=== PATIENT | female | born 1935 | race Caucasian/White ===

== ENCOUNTER → 2018-09-12 06:32 | Outpatient (CLI) | payer MEDICARE, OTHER, SELFPAY ==
[2018-08-24 11:08] VITALS: BMI 34.1
--- NOTE | 2018-09-12 06:35 | ECHOD_ITS ---
Reason For Study: CAD/ASHD Procedure This was a 2D Doppler, Color Flow transthoracic echocardiogram. Exam performed in department. Left Ventricle Normal LV size. Left ventricular systolic function is normal. The estimated ejection fraction is 60 %. Stage 1 diastolic dysfunction. Right Ventricle Normal RV size. Normal systolic function. Atria Normal left atrium. Normal right atrium. Mitral Valve There is mild to moderate mitral annular calcification. Tricuspid Valve Normal tricuspid valve. Mild (1+) tricuspid valve insufficiency. Pulmonary artery systolic pressure is 35 mmHg. Aortic Valve Normal aortic valve. Pulmonic Valve Normal pulmonic valve. Great Vessels Normal aortic root. The pulmonary artery is normal size. Normal inferior vena cava. Pericardium/Pleural No pericardial effusion. MMode/2D Measurements & Calculations LVIDd: 3.6 cm IVSd: 1.0 cm Ao root diam: 3.0 cm LVIDs: 2.2 cm LVPWd: 1.0 cm RVDd: 2.8 cm FS: 39.3 % LAV(MOD-bp): 55.2 ml LA A4 area: 18.9 cm2 LA dimension(2D): 4.5 cm LAV(MOD-bp) Indexed: 32.1 ml/m2 LAV(MOD-sp2): 58.8 ml LAV(MOD-sp4): 53.3 ml RA A4 area: 12.1 cm2 Time Measurements MV dec time: 0.18 sec Doppler Measurements & Calculations MV E max pawel: 108.4 cm/sec Lat Peak E' Pawel: 6.3 cm/sec Med Peak E' Pawel: 6.6 cm/sec MV A max pawel: 114.8 cm/sec E/E' lat: 17.3 E/E' med: 16.3 MV E/A: 0.94 Ao V2 max: 121.8 cm/sec LV V1 max: 86.8 cm/sec PA V2 max: 63.3 cm/sec Ao max P.9 mmHg LV V1 max P.0 mmHg TR max pawel: 277.9 cm/sec TR max P.9 mmHg Interpretation Summary Normal LV size. Left ventricular systolic function is normal. The estimated ejection fraction is 60 %. Stage 1 diastolic dysfunction. Ordering Physician: Jackson Davenport Referring Physician: Oj Fuentes Performed By: Dominique Clark, ARMAND, RVT
--- NOTE | 2018-09-12 17:07 | STRESSREP ---
Stress Test Report Pharmacologic myocardial perfusion stress test. 83-year-old lady with a history of previous coronary artery disease. Stress protocol: Resting EKG demonstrates normal sinus rhythm with a rate of 77 bpm normal intervals are noted resting blood pressure 132/70 6 m of mercury. 0.4 mg of adenosine was infused per usual protocol followed Intravenous saline flush injection continuous EKG monitoring was performed. The patient maintained sinus rhythm throughout the recording. The resting heart rate was 71 bpm with a peak heart rate of 93 with beats per minute. The maximum workload was 1 metabolic equivalent. At rest there were no ST or T wave changes noted suggest ischemia at peak infusion nonspecific ST-T wave changes were noted. The resting blood pressure 132/76 with a final blood pressure 122/64. Myocardial perfusion protocol. 11.6 mCi of technetium 99 sestamibi was injected at rest. 0.4 mg of regadenoson was infused per usual protocol peak infusion 32.9 mCi of technetium 99m sestamibi was injected stress images were obtained stress and rest images are reconstructed and compared in the short axis vertical and horizontal long axes. Gated images were also obtained Perfusion SPECT analysis: Review of the stress images demonstrate a small cardiac silhouette size. There is a medium-sized defect noted in the mid anterolateral wall towards the apex which completely reverses on resting. Above is suggestive of anterolateral ischemia. Gated SPECT analysis: The gated ejection fraction is noted to be 72%. Conclusion: Pharmacologic myocardial perfusion stress test with evidence of anterolateral ischemia present. Preserved ejection fraction.
== END ==
PROVIDERS: Family Provider Family Medicine; PCP Family Medicine; Referring Provider Internal Medicine Cardiovascular Disease; Visit Provider Internal Medicine Cardiovascular Disease
DX: I25.10 Atherosclerotic heart disease of native coronary artery without angina pectoris (principal); Z95.5 Presence of coronary angioplasty implant and graft
CPT/HCPCS: 78452; 93017; 93306; A9500; A4216; J2785

== ENCOUNTER → 2018-09-19 11:25 | Outpatient (CLI) | payer MEDICARE, OTHER, SELFPAY ==
[2018-08-24 11:08] VITALS: BMI 34.1
--- NOTE | 2018-09-19 11:43 | RAD_ITS ---
STUDY: X-RAY CHEST REASON FOR EXAM: Female, 83 years old. Pre-op for heart catheter TECHNIQUE: PA and lateral views of the chest. COMPARISON: None. FINDINGS: There is hyperinflation of the lungs consistent with chronic obstructive lung disease (COPD). Lungs are clear. There is no demonstrated pleural abnormality. There is mild cardiac enlargement. Normal mediastinum and sanchez. Normal visualized pulmonary arteries. There is atherosclerotic calcification of the aortic arch with tortuosity. There are diffuse degenerative changes of the visualized thoracic spine. There is degenerative osteoarthritis of the bilateral shoulders. There is no demonstrated abnormality of the visualized soft tissue structures of the upper abdomen. RAD/Chest PA and Lateral IMPRESSION: No acute cardiopulmonary disease Electronically Signed: Higinio Moser DO at 10:00 EDT Tel , Service support ,
[2018-09-19 12:30] LABS: Absolute Lymphocyte Count 1.68 X10^3/ul (0.83-4.51); Absolute Neutrophil Count 7.1 X10^3/uL (2.0-7.7); Basophil# 0.01 X10^3/uL; Basophil% 0.1 % (0-1); Eosinophil# 0.16 X10^3/uL; Eosinophils% 1.6 % (0-5); Hematocrit 33.5 % (37-47); Hemoglobin 11.4 g/dl (12.0-15.0); Lymphocyte # 1.68 X10^3/ul (4.0); Lymphocyte % 17.3 % (19-41); Mean Corpuscular Hgb 35.2 pg (27.0-32.0); Mean Corpuscular Volume 103.4 fL (81-99); Mean Platelet Vol. 9.4 fl (6.2-12.0); Monocyte# 0.74 X10^3/uL; Monocyte% 7.6 % (0-10); Neutrophil # 7.08 X10^3/uL (2.7-7.7); Platelet Count 305 K/mm3 (150-450); RBC Distribution Width CV 14.3 % (11.6-14.6); RBC Distribution Width SD 53.9 fl (35.1-43.9); Red Blood Count 3.24 M/mm3 (4.2-5.4); White Blood Count 9.7 K/mm3 (4.4-11.0)
[2018-09-19 12:35] LABS: POSITIVE COUNT NO; POSITIVE DIFFERENTIAL NO; POSITIVE MORPHOLOGY NO
[2018-09-19 12:57] LABS: Anion Gap 9 (5-15); BUN 43 mg/dL (7-18); BUN/Creat Ratio 26.9 RATIO (10-20); Calcium,Total 9.3 mg/dL (8.5-10.1); Chloride 101 mmol/L (98-107); EST Glomerular Filtration Rate 33 mL/min (>60); Est Glom Filt Rate - Afr Amer 40 mL/min (>60); Glucose 170 mg/dL (74-106); Sodium Level 134 mmol/L (136-145)
== END ==
PROVIDERS: Family Provider Family Medicine; PCP Family Medicine; Referring Provider Internal Medicine Cardiovascular Disease; Visit Provider Internal Medicine Cardiovascular Disease
DX: I25.10 Atherosclerotic heart disease of native coronary artery without angina pectoris (principal); R94.39 Abnormal result of other cardiovascular function study; Z95.5 Presence of coronary angioplasty implant and graft
CPT/HCPCS: 36415; 71046; 80048; 85025

== ENCOUNTER 2018-09-23 07:55 | Day surgery (SDC) | payer MEDICARE, OTHER, SELFPAY ==
[2018-08-24 11:08] VITALS: BMI 34.1
[2018-09-22 07:46] VITALS: BMI 34.1
[2018-09-23] VITALS (25 sets, daily range): BP systolic 97–131; BP diastolic 33–98; PULSE 63–78; RESP 10–23; TEMP 36.5–36.6; O2SAT 96–100; BMI 34.5
--- NOTE | 2018-09-23 09:42 | PCM.HP.BLA ---
Problem List (1) Atherosclerosis of coronary artery without angina pectoris Status: Chronic Comment: [id number]-Iuzs-Mid RCA w/ 3.0 x 20 mm Promus Element and 3.0 x 16 mm Promus Element 11/20/2011; PCI-RIANA-RCA 3.0 x 28mm Promus 06/26/2009; PCI-RIANA-RCA w/ 3.0 x 32 mm Taxus 06/21/2006; PCI-Stent- RCA w/ 3.0 x 24 mm Molded Rubber Goods Cutter Stent 08/27/2005; (2) Essential (primary) hypertension Status: Chronic (3) Hyperlipidemia Status: Chronic (4) History of coronary artery stent placement Status: Resolved Comment: KUA-TFI-Urdl-Mid RCA w/ 3.0 x 20 mm Promus Element and 3.0 x 16 mm Promus Element 11/20/2011; PCI-RIANA-RCA 3.0 x 28mm Promus 06/26/2009; PCI-RIANA-RCA w/ 3.0 x 32 mm Taxus 06/21/2006; PCI-Stent- RCA w/ 3.0 x 24 mm Molded Rubber Goods Cutter Stent 08/27/2005; History and Physical Date of Admission: 09/23/18 HPI History of Present Illness Details: Pleasant 83-year-old lady who in presents here today for a diagnostic heart cath. In November 2011 presented for a heart catheterization which revealed triple-vessel disease. It was elected that she should have a PCI followed by stent deployment. Following the procedure she apparently developed hypotension was noted to have moderate global pericardial effusion and underwent emergent pericardial window placement. She is done well since then but with residual hypertension, hyperlipidemia, and renal dysfunction. She has continued to follow-up in [place] but now wants to follow-up here with us. She is denied any dizziness or diaphoresis near syncope or syncope. She has been compliant with her medications. She apparently had a 3.0 x 38 mm long Promus stent, 3.0 x 28 mm Promus stent and a 3.0 x 16 mm Promus stent placed at that time. She underwent a stress test that demonstrated evidence of anterolateral ischemia present with a preserved ejection fraction. Intake VS: see chart Intake Visit Reasons: establish care ( previous niranjan pt ) Allergies quinapril HCl [From Accupril] Allergy (Verified 08/24/18 08:59) Other Sulfa (Sulfonamide Antibiotics) Allergy (Verified 08/24/18 08:59) Rash Medications Aspirin E.C. [Ecotrin] 81 mg PO DAILY@0800 01/02/15 [History Confirmed 08/24/18] Carvedilol [Coreg (Beta Karin)] 25 mg PO BID 01/02/15 [History Confirmed 08/24/18] Cholecalciferol (VIT D3) [Vitamin D3] 1,000 unit PO DAILY 01/02/15 [History Confirmed 08/24/18] Citalopram [Celexa] 20 mg PO DAILY 01/02/15 [History Confirmed 08/24/18] Clopidogrel Bisulfate [Plavix] 75 mg PO DAILY 01/02/15 [History Confirmed 08/24/18] Cranberry 500 mg PO DAILY 01/02/15 [History Confirmed 08/24/18] Cyanocobalamin [Vitamin B12] 1,000 mcg PO DAILY@0800 01/02/15 [History Confirmed 08/24/18] Folic Acid 1 mg PO BIDCM 01/02/15 [History Confirmed 08/24/18] Furosemide [Lasix] 20 mg PO DAILY 01/02/15 [History Confirmed 08/24/18] Irbesartan [Avapro] 300 mg PO DAILY 01/02/15 [History Confirmed 08/24/18] Latanoprost 0.005% [Xalatan Opthalmic] 1 drp EACH EYE QHS 01/02/15 [History Confirmed 08/24/18] Levothyroxine [Synthroid] 75 mcg PO QHS 01/02/15 [History Confirmed 08/24/18] Pantoprazole Sodium [Protonix] 40 mg PO DAILY 01/02/15 [History Confirmed 08/24/18] Pravastatin [Pravachol] 80 mg PO DAILY 01/02/15 [History Confirmed 08/24/18] sitagliptin 50 mg tablet 50 mg PO DAILY 08/22/18 [History Confirmed 08/24/18] ciclopirox 0.77 % topical suspension 1 applic TOPICAL QHS ml 08/24/18 [History Confirmed 08/24/18] glipizide 5 mg tablet 5 mg PO BID tab 08/24/18 [History Confirmed 08/24/18] nitroglycerin 0.4 mg sublingual tablet 0.4 mg SUBLINGUAL Q5-15M PRN 08/24/18 [History Confirmed 08/24/18] PFSH Medical History Atherosclerosis of coronary artery without angina pectoris (Chronic) Essential (primary) hypertension (Chronic) Hyperlipidemia (Chronic) Hypothyroidism (Chronic) Obesity (Chronic) Type 2 diabetes mellitus (Chronic) Pericardial effusion with cardiac tamponade (Resolved) Surgical History History of coronary artery stent placement (Resolved 11/20/11) History of bladder suspension procedure (Resolved) History of carpal tunnel release (Resolved) History of herniorrhaphy (Resolved) History of hysterectomy (Resolved) History of partial thyroidectomy (Resolved) Hx of cholecystectomy (Resolved) S/P pericardial window creation (Resolved 11/20/11) Family History Other CAD (coronary artery disease) Diabetes Social History Smoking Status: Never smoker ROS Const Const: Negative for fatigue, weakness, headache(s), frequent falls, difficulty sleeping or excessive sweating Eyes Eyes: Negative for loss of peripheral vision, transient loss of vision, blurry vision, double vision or tunnel vision ENT ENT: Negative for headache(s), dizziness, Nosebleed/epistaxis or balance problems Cardio Chest Pain: No Palpitations: No Edema: None Muscle aches with walking: None Resp Respiratory: Positive for SOB with activity (Increased SOB with ambulation) and crackles (bilateral bases); negative for SOB at rest, SOB orthopnea\SOB lying down, Cough or paroxysmal nocturnal dyspnea GI GI: Negative nausea, vomiting, heartburn or black,tarry stools : Negative for hematuria Musc Musc: Negative for muscle aches/ myalgia, muscle weakness, joint pain or balance problems Skin Skin: Negative non-healing lesions, rash or unusual bruising Neuro Neuro: Negative for dizziness, lightheadedness, near syncope, syncope, orthostatic symptoms, frequent falls, headache(s), weakness, blurry vision, double vision or lack of coordination Bradley Hematologic/Lymphatic: Negative for easy bleeding or easy bruising Endo Endo: Negative for fatigue, excessive sweating or increased thirst/drinking Psych Psych: Negative for anxiety or depression Allergy Allergy/Immunology: Negative for hives, Negative for rash Cardiology Exam Const Appearance: cooperative, healthy appearing, no acute distress, well developed and well groomed Nutritional Appearance: average body habitus and well nourished Orientation: alert, awake and oriented x3 Head Head: normal to inspection, normocephalic and atraumatic Ears: hearing grossly normal bilaterally and external ears normal Nose: external nose normal, nares normal, nasal mucous membranes and turbinates normal, septum normal, no nasal discharge Face and Sinus: face symmetric Mouth: oral mucosae normal, tongue normal, oropharynx normal and moist mucous membranes Teeth and gingiva: dentition normal Throat: posterior oropharynx normal, tonsils normal and uvula midline Eyes General: appearance normal, both eyes and all related structures Eyelids: eyelids normal Conjunctivae: conjunctivae normal Pupils: PERRL, normal by confrontation and accommodation normal EOM: EOM intact bilaterally Neck Neck: normal visual inspection, trachea midline and no JVD JVD: +5 Carotids: normal carotid upstroke and bounding pulses Chest Chest inspection: normal inspection of the chest, symmetric chest movement and normal respiratory effort Auscultation: Bilateral: Clear to Auscultation Cardio Palpation: normal PMI Rate: regular rate Rhythm: regular rhythm Heart sounds: S1 normal, S2 normal and normal, physiologic split S2; negative rub, gallop or murmur GI GI: normal to inspection, soft, no hepatosplenomegaly and bowel sounds present Neuro General: alert, awake, oriented x3, gait normal, moves all extremities and no focal sensory deficit Skin Skin: no rashes or lesions noted Extremities Pulses: Normal: Right Femoral Pulse, Left Femoral Pulse, Right Dorsalis Pedis Pulse, Left Dorsalis Pedis Pulse, Right Posterior Tibial Pulse, Left Posterior Tibial Pulse, Right Radial Pulse, Left Radial Pulse Lower Extremity Edema: None: Bilateral Musculoskel Musculoskeletal: No joint tenderness Psych Psychological: normal affect Assessment & Plan 1. History of coronary artery stent placement Z95.5 NYP-EYC-Swww-Mid RCA w/ 3.0 x 20 mm Promus Element and 3.0 x 16 mm Promus Element 11/20/2011; PCI-RIANA-RCA 3.0 x 28mm Promus 06/26/2009; PCI-RIANA-RCA w/ 3.0 x 32 mm Taxus 06/21/2006; PCI-Stent- RCA w/ 3.0 x 24 mm Molded Rubber Goods Cutter Stent 08/27/2005; Plan She does have known coronary artery disease with her last catheterization demonstrating a calcified left main coronary artery with 20 to 25% stenosis, left anterior descending artery which is calcified with 30% stenosis proximally and 20 to 30% stenosis followed by tubular 20 to 30%, 40 to 50% and distal 50 to 60% stenosis. The circumflex artery had less than 50% diffuse stenosis in the right coronary artery was a dominant vessel was occluded filling via [id number] collaterals and this was the vessel that was intervened upon. Stress test was positive for ischemia she is here today to undergo a diagnostic heart cath. 2. Essential (primary) hypertension I10 Plan Her blood pressure appears to be under good control at this particular time no other major changes will be made. She appears to have some renal dysfunction. Her most recent chemistry profile demonstrated a BUN of 40 and a creatinine of 1.8. 3. Hyperlipidemia E78.5 Plan She does have a history of hyperlipidemia she is on statin. She had a recent lipid profile performed which demonstrated total cholesterol 129, HDL 49 and LDL 57. No changes will be made with regard to the above.
--- NOTE | 2018-09-23 10:25 | CL.D_ITS ---
Patient Name: KRISTEL RYAN Study Date: 09/23/2018 Performing: Jackson Davenport MD Ht: 59.05 inches 150 cm : 1935 Wt: 167.55 lbs 76 kg Age: 83 Gender: female BSA: 1.71 PROCEDURE(S) PERFORMED MN18-UFX/COR/LV CLINICAL PROFILE AND INDICATIONS Indications: Suspected CAD Heart Failure: None Stress/Imaging Date: 09/12/2018Stress Test with SPECT MPI: Positive Intermediate Risk CAD Presentations: Stable angina. CONCLUSIONS Diffuse coronary artery disease with previously placed stents patent with moderate in-stent stenosis. Severe disease noted of the circumflex artery as well as the mid to distal left anterior descending artery. RECOMMENDATIONS Referred for immediate PCI DESCRIPTION OF PROCEDURE The patient arrived to the procedure lab. The risks and benefits of the procedure as well as a full d escription of our services here and current unavailability of surgical backup were fully explained to the patient and/or their significant other prior to the catheterization. The Timeout was completed, verifying the correct patient and procedure. The patient's procedural site was prepped and draped in the usual fashion. Local anesthetic was given subcutaneously to right radial region with Lidocaine 2% . Using a modified Seldinger technique, arterial access was obtained via the right radial artery, a 6 Fr sheath was inserted. Right Coronary Artery selective angiography was performed in multiple views using a 5 Fr. 4.0 Yale catheter. Left Coronary Artery selective angiography was performed in multipl e views using a 5 Fr. 4.0 Yale catheter. Left Ventriculography was performed in [place] projection using a 5 Fr. Pigtail catheter. LV to AO pullback pressures were then recorded. CORONARY ANGIOGRAPHY DOMINANCE: Right Dominant LEFT HEART ASSESSMENT Left Ventricular Ejection Fraction: by LV Gram 60 % Normal LV wall motion Normal Left Ventricular systolic function LEFT MAIN: Mild calcification, Mild luminal irregularities LEFT ANTERIOR DESCENDING ARTERY: PROX LAD: Mild luminal irregularities less than 30% MID LAD: 80 % Stenosis CIRCUMFLEX ARTERY: OSTIAL CIRC: Mild luminal irregularities less than 30% MID CIRC: 75 irregular % Stenosis OM 1: Proximal - 95 long % Stenosis RIGHT CORONARY ARTERY: OSTIAL RCA: 40 % Stenosis PROX RCA: Previously placed stent is patent MID RCA: Instent restenosis 50 % DISTAL RCA: Instent restenosis 30 % COMPLICATIONS No Complications PROCEDURE MEDICATIONS Fentanyl 50 mcg IV Versed 1 mg IV Fentanyl 25 mcg IV Fentanyl 25 mcg IV Oxygen: 2 L/min via nasal cannula Heparin diluted in 23cc Heparinized saline. Patient given 10cc IA of this solution. 09/23/2018 09:49: 51 Heparin 5000 unit(s) IV 09/23/2018 10:18:07 Verapamil 2.5mg, Ntg 100mcgs, 2000 units of Heparin diluted in 23cc Heparinized saline. Patient give n 10cc IA of this solution. 09/23/2018 09:49:51 SUMMARY OF HEMODYNAMIC DATA Time AIR REST ECG 08:15:10 AO 128/65 (91) SA 09:52:35 LV 130/8, 20 10:02:03 LV 132/8, 21 10:02:10 LV 120/2, 25 10:03:02 LV 123/2, 24 10:03:08 LVp 127/1, 24 10:03:14 AOp 137/60 (94) 10:03:19 Signed By Jackson Davenport MD On 09/23/2018 10:24:50 Jacksno Davenport MD
--- NOTE | 2018-09-23 11:30 | EKG12_ITS ---
Test Reason : AM EKG Blood Pressure : / mmHG Vent. Rate : 072 BPM Atrial Rate : 072 BPM P-R Int : 140 ms QRS Dur : 080 ms QT Int : 390 ms P-R-T Axes : 061 025 092 degrees QTc Int : 427 ms Normal sinus rhythm Normal ECG When compared with ECG of 23-SEP-2018 11:16, MANUAL COMPARISON REQUIRED, DATA IS UNCONFIRMED Confirmed by JENN PATINO, BRENT ([id number]), map editor ELLEN ASIF ([id number]) on 09/30/2018 1:52:39 PM Referred By: Jackson Davenport Confirmed By:JASEN BARAJAS MD
--- NOTE | 2018-09-23 11:46 | CL.I_ITS ---
Patient Name: KRISTEL RYAN Study Date: 09/23/2018 Performing: Jacquie Lema MD Ht: 59.06 inches 150 cm : 1935 Wt: 167.55 lbs 76 kg Age: 83 Gender: female BSA: 1.71 PROCEDURE(S) PERFORMED [id number], SINGLE CORONARY ARTERY CLINICAL PROFILE AND CO-MORBIDITIES Indications: Suspected CAD Heart Failure: None Stress/Imaging Date: 09/12/2018 Stress Test with SPECT MPI: Positive Intermediate Risk CAD Presentations: Stable angina. CONCLUSIONS Successful PCTA alone of mLCx RECOMMENDATIONS Recommend medical therapy at this point and PCI or CABG if patient remain symptomatic despite maximal medical therapy DESCRIPTION OF PROCEDURE The patient arrived to the procedure lab. The risks and benefits of the procedure as well as a full d escription of our services here and current unavailability of surgical backup were fully explained to the patient and/or their significant other prior to the catheterization. The Timeout was completed, verifying the correct patient and procedure. The patient's procedural site was prepped and draped in the usual fashion. Local anesthetic was given subcutaneously to right radial region with Lidocaine 2% Using a modified Seldinger technique,arterial access was obtained via the right radial artery, a 6Fr sheath was inserted. Right Coronary Artery selective angiography was performed in multiple views usi ng a 5 Fr. 4.0 [place] catheter. Left Coronary Artery selective angiography was performed in multiple v iews using a 5 Fr. 4.0 [place] catheter. Left Ventriculography was performed in [place] projection using a 5 Fr. Pigtail catheter. LV to AO pullback pressures were then recorded.The images were reviewed and options discussed. A decision was then made to proceed with an Intervention, IVUS or oth er adjunct procedure. XB 3.0 Guide catheter was inserted and engaged into the LCA. [employer] [place] Guide wire was advance d to the Circumflex. Emerge 2.25 x 20 Balloon catheter was inserted. Emerge 1.5 x 15 Balloon catheter was inserted. Balloon catheter was advanced across lesion in the circumflex, distal. PTCA balloon in flated at 14 atms for 24 secs. PTCA balloon inflated at 14 atms for 22 secs. PTCA balloon inflated at 14 atms for 26 secs. PTCA balloon inflated at 14 atms for 6 secs. Angiogram performed post balloon d ilatation. Emerge 2.25 x 20 Balloon catheter was reinserted Balloon catheter was advanced across lesi on in the circumflex, distal. Angiogram performed post balloon dilatation. The arterial sheath was pulled and a TR Band was applied for hemostasis INTERVENTION INFORMATION LESION SITE: Circumflex (Mid) Lesion Complexity: High/C, chronic total occlusion: No, lesion at bifurcation: No, thrombus present: No, lesion length: 20 mm, culprit lesion: Yes, Previously treated lesion: No Pre Stenosis: 80 % Pre intervention YAYO flow: 3 PROCEDURE: Balloon Angioplasty Post Stenosis: 60 % Post intervention YAYO flow: 3. The 1.5 mm balloon crossed and expanded well. Th e 2.25 mm balloon ruptured. At this point we felt that further attempts at pre dilating will not be i deal. Rotablation is not ideal for this vessel either. Brief attempts at crossing the LAD lesion with bmw wire was unsuccessful. Escalating to a hydrophilic wire would increase the risk of complications in this patient who in the past had PCI complicated with hemorrhagic pericardial effusion requiring window. At this point we felt the risk vs benefit ratio was not in favor of further attempts at PCI o f LAD which is at best 1.5mm in the location of the stenosis. Recommend medical therapy at this point and PCI or CABG if patient remain symptomatic despite maximal medical therapy Lesion Devices: Cordis 6 Fr XB3.0 100cm Guide Catheter [employer] 6 [place] GuideLiner Driscoll .014 [employer] [place] Straight 190cm Natan Sci EMERGE MR 2.25x20 BALLOON Natan Sci EMERGE MR 1.50x15 BALLOON COMPLICATIONS No Complications PROCEDURE MEDICATIONS Fentanyl 50 mcg IV Versed 1 mg IV Fentanyl 25 mcg IV Fentanyl 25 mcg IV Oxygen: 2 L/min via nasal cannula Heparin diluted in 23cc Heparinized saline. Patient given 10cc IA of this solution. 09/23/2018 09:49: 51 Heparin 5000 unit(s) IV 09/23/2018 10:18:07 Verapamil 2.5mg, Ntg 100mcgs, 2000 units of Heparin diluted in 23cc Heparinized saline. Patient give n 10cc IA of this solution. 09/23/2018 09:49:51 IV Bolus: .9 NaCl 250 ml total 09/23/2018 10:52:56 SUMMARY OF HEMODYNAMIC DATA Time AIR REST ECG 08:15:10 AO 128/65 (91) SA 09:52:35 LV 130/8, 20 10:02:03 LV 132/8, 21 10:02:10 LV 120/2, 25 10:03:02 LV 123/2, 24 10:03:08 LVp 127/1, 24 10:03:14 AOp 137/60 (94) 10:03:19 RM AIR REST 10:32:39 Signed By Jacquie Lema MD On 09/23/2018 11:45:35 AM Jacquie Lema MD
[2018-09-23] MEDS: 0.9% Normal Saline 1,000 ML 100 ML IV (11:56)
--- NOTE | 2018-09-23 13:02 | CRPHASE1_ITS ---
Patient Communication PHII Cardiac Rehab Discussed with Patient:: Yes Guide to Cardiac Rehab Given to Patient:: Yes Cardiac Rehab Facility Choice List Given to Patient:: Yes Choice Program [facility] CR PHII:: Communication Given to CR, Refer to [facility] Rug Weaver:: Eduar Lema - Dr. 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 PCP:: Koko Fuentes Phase II Cardiac Rehab:: Yes Sessions:: 36 sessions - 3 days/wk, 12 weeks Risk Factors/Lifestyle Smoking Status: Never smoker Hx Hypertension: Yes Hx Diabetes Mellitus Type 2: Yes Hx Dyslipidemia: Yes Height: 4 ft 11 in Weight:: 171 lb BMI: 34.5 Family History: Family History (Last Reviewed 08/24/18 @ 11:34 by Jackson Davenport MD) Other CAD (coronary artery disease) Diabetes Phase I Education Given On:: [place], Nutrition, Antiplatelet medication, CHF, Smoking cessation, Diabetes - Type I, Diabetes - Type II Hospital Course Presenting Symptoms:: SOB Medical/Surgical History CT:: No CAD:: Yes Valve Disease/Replacement:: No Pulmonary:: No COPD:: No Asthma:: No Diabetes Type II:: Yes Hypertension:: Yes Dyslipidemia:: Yes Arrhythmias:: No PVD:: No GERD:: Yes Cancer:: No Renal:: No Thyroid:: Yes Depression:: Yes - SEASONAL CABG: No PTCA:: Yes ICD:: No Pacemaker:: No Cardiac Rehabilitation Info Cardiac Rehabilitation Program Information: Cardiac Rehabilitation is important for patients like you who are recovering from a heart problem. Cardiac rehabilitation programs are recognized as integral to the continued care of the patient with coronary heart disease. The cardiac rehabilitation program is designed to optimize a patient's physical, psychological, and social functioning. Health animal care service worker work in cardiac rehabilitation programs and assist you with getting the treatments you need to get stronger and healthier - like exercise, healthy eating habits, and medications. Cardiac rehabilitation has been show to help people with heart problems live longer and have better life enjoyment than people who do not go to cardiac rehabilitation. Please contact the Cardiac Rehabilitation Program at [facility] at in two weeks if you have not heard from them.
--- NOTE | 2018-09-23 13:08 | CRPH1.INSTRU ---
General Education CAD and cardiac anatomy and function:: Not instructed Explanation of diagnoses and procedures:: Not instructed Sign/Symptoms of ME:: Not instructed Antiplatelet therapy: Not instructed Proper use of NTG-SL: Not instructed Emergency procedures and activation of EMS: Not instructed Compliance of all prescribed medications: Not instructed Smoking Patient Nicotine/Smoking Risk Factors Are:: Never smoked Dyslipidemia Recommendations Include:: Lipid profile not available Overweight/Obesity Patient Overweight/Obesity Risk Factors Are:: Obesity - > or = 30 Overweight/Obesity:: Not instructed Hypertension Hypertension:: Not instructed Heart Disease Patient Heart Disease Risk Factors Are:: Previous cardiac event - PREVIOUS 4 STENTS Heart Disease Response Code:: Not instructed Diabetes Patient Diabetes Risk Factors Are:: Elevated blood sugars Diabetes:: Not instructed Metabolic Syndrome Metabolic Syndrome Response Code:: Not instructed Sedentary Sedentary Response Code:: Not instructed Stress Stress Response Code:: Not instructed
[2018-09-23] MEDS: glipiZIDE 5 MG Tablet PO (16:55)
[2018-09-23] MEDS: Folic Acid 1 MG Tablet PO (16:55)
[2018-09-23] MEDS: Carvedilol 25 MG Tablet PO (22:15)
[2018-09-24] VITALS (14 sets, daily range): BP systolic 105–128; BP diastolic 37–53; PULSE 66–75; RESP 12–17; TEMP 36.6–36.8; O2SAT 93–99
[2018-09-24 05:44] LABS: Hematocrit 31.7 % (37-47); Hemoglobin 10.8 g/dl (12.0-15.0); Mean Corp Hgb Conc 34.1 g/gl (32-36); Mean Corpuscular Hgb 35.1 pg (27.0-32.0); Mean Corpuscular Volume 102.9 fL (81-99); Mean Platelet Vol. 9.4 fl (6.2-12.0); Platelet Count 286 K/mm3 (150-450); RBC Distribution Width CV 13.9 % (11.6-14.6); RBC Distribution Width SD 50.1 fl (35.1-43.9); Red Blood Count 3.08 M/mm3 (4.2-5.4); White Blood Count 8.3 K/mm3 (4.4-11.0)
[2018-09-24 05:50] LABS: Scan Indicated on CBC? Y/N NO
[2018-09-24 05:57] LABS: ALB/GLOB Ratio 1.1 RATIO (0.9-2.4); AST(SGOT) 12 U/L (15-37); Alanine Aminotransfer ALT/SGPT 13 U/L (13-56); Albumin, Serum 3.5 g/dL (3.2-5.0); Alkaline Phosphatase 51 U/L (45-117); Anion Gap 8 (5-15); BUN 41 mg/dL (7-18); BUN/Creat Ratio 31.8 RATIO (10-20); Calcium,Total 8.9 mg/dL (8.5-10.1); Chloride 105 mmol/L (98-107); Creatinine, Serum 1.29 mg/dL (0.55-1.02); EST Glomerular Filtration Rate 42 mL/min (>60); Est Glom Filt Rate - Afr Amer 51 mL/min (>60); Estimated Creatinine Clearance 41.51 ml/min; Globulin 3.2 g/dL (2.2-4.2); Glucose 78 mg/dL (74-106); Potassium 4.6 mmol/L (3.5-5.1); Protein, Total 6.7 g/dL (6.4-8.2); Sodium Level 138 mmol/L (136-145)
[2018-09-24] MEDS: Clopidogrel Bisulfate 75 MG Tablet PO (08:06)
[2018-09-24] MEDS: Folic Acid 1 MG Tablet PO (08:06)
[2018-09-24] MEDS: Citalopram 20 MG Tablet PO (08:06)
[2018-09-24] MEDS: glipiZIDE 5 MG Tablet PO (08:06)
[2018-09-24] MEDS: Pantoprazole Sodium 40 MG Tablet PO (08:06)
[2018-09-24] MEDS: Aspirin E.C. 81 MG Tablet PO (08:06)
[2018-09-24 08:16] LABS: Bedside Glucose 97 mg/dL (70-110)
--- NOTE | 2018-09-24 08:37 | PN.CARD_ITS ---
Subjectve: Patient seen and evaluated. Appears to be doing better. No concerns. Objective: Vital Signs Temp Pulse Resp BP Pulse Ox 98.2 F 72 17 119/38 L 98 09/24/18 08:00 09/24/18 08:00 09/24/18 08:00 09/24/18 08:00 09/24/18 08:00 Oxygen Delivery Method Room Air Weight: 172 lb 6.424 oz Body Mass Index (BMI) 34.5 Finger Stick Blood Glucose 196 Intake and Output for Last 24 Hours 09/22/18 09/23/18 09/24/18 23:59 23:59 23:59 Intake Total 1723 / 1723 120 / 120 Balance 1723 / 1723 120 / 120 General: Awake, Alert, Oriented x 3 HEENT: PERRL, EOMI, Sclera Non Icteric Neck: Supple, Good ROM, No Lymph Node Enlargement Lungs: Clear to auscultation Cardiovascular: Regular Rhythm, Normal S1, Normal S2, No Murmurs, No Rubs, No Gallops Vascular: No Carotid Bruits, Normal Femoral Pulses, Normal Radial Pulses, Normal Dorsalis Pedal Pulse, Normal Posterior Tibial Pulses Abdomen: Bowel Sounds Present, Soft, Non Tender, No HSM, No Organomegaly Extremities: No Cyanosis, No Clubbing, No edema Musculoskeletal: No Erythema Skin: No Rashes Lymphatic: No Lymph Node Enlargement Neurological: No Focal Motor or Sensory Deficit Psych/Mental Status: Appropriate 09/24/18 05:30: WBC 8.3, RBC 3.08 L, Hgb 10.8 L, Hct 31.7 L, MCV 102.9 H, MCH 35.1 H, MCHC 34.1, RDW 13.9, RDW Differential 50.1 H, Plt Count 286, MPV 9.4 09/24/18 05:30: Sodium 138, Potassium 4.6, Chloride 105, Carbon Dioxide 25.0, Anion Gap 8, BUN 41 H, Creatinine 1.29 H, Est GFR (MDRD) Af Amer 51 L, Est GFR (MDRD) Non-Af 42 L, BUN/Creatinine Ratio 31.8 H, Glucose 78, Calcium 8.9, Total Bilirubin 0.40 Rhythm: EKG: ECHO: Stress Test: Cardiac Cath: PCI: CT Surgery: Holter monitor: EPS: PPM: CXR: Chest CT Scan: Medical Necessity - Tobacco Use Smoking Status: Never smoker Assessment/Plan 1. Coronary artery disease * Patient underwent angioplasty of the left circumflex artery. This morning appears to be doing well. The LAD still has some stenosis but patient is asymptomatic and this would not be tackled at this time. EKG remains without significant changes hemoglobin and creatinine are normal. The patient will be discharged for outpatient follow-up in cardiac rehabilitation if desired.
--- NOTE | 2018-09-24 08:44 | PCM.DC.CCA ---
Discharge Diet: No Restrictions - You may continue your normal diet. Lifting Restrictions: 10 pounds and also avoid any pushing or pulling for 3 days after your test. Additional Activity Instructions:: You must have someone drive you home. Do not drive until instructed by your doctor. You must have someone stay with you all night after your test. Rest in bed or on the couch until the next morning. Limit the number of times you go up and down stairs the day of your test. Apply pressure to the puncture site if you sneeze or cough. Call your doctor if your incision/area has: Increased Pain/ Swelling, Increased Redness, Foul Smelling Discharge, Swelling at the incision site Call your doctor if you observe: Fever of 101 or Higher Additional Dressing/Incision Instructions:: Keep the dressing (bandage) on until the next morning. You may then shower, but do not take a tub bath for 5 days after your test. It is normal to have some tenderness and discomfort at the puncture site. Sometimes bruising also occurs. However, if pain, numbness, or coldness occurs below the puncture site (in your leg, toes, arms or fingers) call your doctor at once. You may have a small, marble sized knot at the puncture site. This is normal. Do not rub it. It will go away in 4-6 weeks. Bleeding can occur from the area where the puncture was done. Blood may spurt or drip from the site. If blood spurts, apply pressure right away to stop bleeding and call 911. Although rare, bleeding into the tissue (hematoma) can also occur. If this happens, a large, firm area goose egg under the skin will appear. If any of these occur, lie down as flat as you can and have someone apply firm pressure to the cath site with a gauze pad or a clean washcloth for 10-15 minutes. Call 911 or go to the Emergency Department. Allergies/Adverse Reactions: Allergies quinapril HCl [From Accupril] Allergy (Verified 08/24/18 08:59) Other cough Sulfa (Sulfonamide Antibiotics) Allergy (Verified 08/24/18 08:59) Rash Medications to take at Discharge Aspirin E.C. [Ecotrin] 81 mg PO DAILY@0800 01/02/15 Carvedilol [Coreg (Beta Karin)] 25 mg PO BID 01/02/15 Cholecalciferol (VIT D3) [Vitamin D3] 1,000 unit PO DAILY 01/02/15 Citalopram [Celexa] 20 mg PO DAILY 01/02/15 Clopidogrel Bisulfate [Plavix] 75 mg PO DAILY 01/02/15 Cranberry 500 mg PO DAILY 01/02/15 Cyanocobalamin [Vitamin B12] 1,000 mcg PO DAILY@0800 01/02/15 Folic Acid 1 mg PO BIDCM 01/02/15 Furosemide [Lasix] 20 mg PO DAILY 01/02/15 Irbesartan [Avapro] 300 mg PO DAILY 01/02/15 Latanoprost 0.005% [Xalatan Opthalmic] 1 drp EACH EYE QHS 01/02/15 Levothyroxine [Synthroid] 75 mcg PO QHS 01/02/15 Pantoprazole Sodium [Protonix] 40 mg PO DAILY 01/02/15 Pravastatin [Pravachol] 80 mg PO DAILY 01/02/15 sitagliptin 50 mg tablet 50 mg PO DAILY 08/22/18 ciclopirox 0.77 % topical suspension 1 applic TOPICAL QHS ml 08/24/18 glipizide 5 mg tablet 5 mg PO BID tab 08/24/18 nitroglycerin 0.4 mg sublingual tablet 0.4 mg SUBLINGUAL Q5-15M PRN 08/24/18 Primary Care Physician: Koko Fuentes MD [Primary Care Provider] - Test Results: Test results from this visit will be discussed in further detail at your follow-up appointment, if applicable. When: follow with titi Proposed Discharge Date: 09/24/18 Cardiac Rehabilitation Info Cardiac Rehabilitation Program Information: Cardiac Rehabilitation is important for patients like you who are recovering from a heart problem. Cardiac rehabilitation programs are recognized as integral to the continued care of the patient with coronary heart disease. The cardiac rehabilitation program is designed to optimize a patient's physical, psychological, and social functioning. Health career center director work in cardiac rehabilitation programs and assist you with getting the treatments you need to get stronger and healthier - like exercise, healthy eating habits, and medications. Cardiac rehabilitation has been show to help people with heart problems live longer and have better life enjoyment than people who do not go to cardiac rehabilitation. Please contact the Cardiac Rehabilitation Program at [facility] at in two weeks if you have not heard from them.
--- NOTE | 2018-09-24 10:00 | EKG12_ITS ---
Test Reason : POST PCI Blood Pressure : / mmHG Vent. Rate : 075 BPM Atrial Rate : 075 BPM P-R Int : 158 ms QRS Dur : 074 ms QT Int : 404 ms P-R-T Axes : 064 035 094 degrees QTc Int : 451 ms Normal sinus rhythm ST & T wave abnormality, consider lateral ischemia Abnormal ECG When compared with ECG of 21-MAY-2016 16:04, No significant change was found Confirmed by JENN PATINO, BRENT ([id number]), design editor ELLEN ASIF ([id number]) on 09/30/2018 1:52:54 PM Referred By: Jackson Davenport Confirmed By:JASEN BARAJAS MD
== END 2018-09-24 11:20 | disposition home or self-care (01) ==
LOC: CLSP 07:57 → ICU 10:45
PROVIDERS: Specialist; Family Provider Family Medicine; PCP Family Medicine; Referring Provider Internal Medicine Cardiovascular Disease; Visit Provider Internal Medicine Cardiovascular Disease
DX: I25.10 Atherosclerotic heart disease of native coronary artery without angina pectoris (principal); T82.855A Stenosis of coronary artery stent, initial encounter; Y71.8 Miscellaneous cardiovascular devices associated with adverse incidents, not elsewhere classified; I10 Essential (primary) hypertension; E78.5 Hyperlipidemia, unspecified; Z79.82 Long term (current) use of aspirin; Z79.84 Long term (current) use of oral hypoglycemic drugs; Z79.899 Other long term (current) drug therapy; Z79.02 Long term (current) use of antithrombotics/antiplatelets; E66.9 Obesity, unspecified; Z68.34 Body mass index [BMI] 34.0-34.9, adult; Z71.3 Dietary counseling and surveillance; E03.9 Hypothyroidism, unspecified; E11.9 Type 2 diabetes mellitus without complications
CPT/HCPCS: 80053; 82962; 85027; 92920; 93005; 93458; 99152; 99153; J7030; J7040; Q9967; C1725; C1769; C1887; C1894

== ENCOUNTER → 2018-12-07 14:09 | Outpatient (CLI) | payer MEDICARE, OTHER, SELFPAY ==
[2018-09-23 13:08] VITALS: BMI 34.5
[2018-12-07 10:19] VITALS: BMI 34.1
[2018-12-07 14:58] LABS: Anion Gap 7 (5-15); BUN 52 mg/dL (7-18); BUN/Creat Ratio 30.1 RATIO (10-20); Calcium,Total 9.4 mg/dL (8.5-10.1); Chloride 100 mmol/L (98-107); Creatinine, Serum 1.73 mg/dL (0.55-1.02); EST Glomerular Filtration Rate 30 mL/min (>60); Est Glom Filt Rate - Afr Amer 36 mL/min (>60); Glucose 171 mg/dL (74-106); Sodium Level 131 mmol/L (136-145)
== END ==
PROVIDERS: Family Provider Family Medicine; PCP Family Medicine; Referring Provider Physician Assistant Medical; Visit Provider Physician Assistant Medical
DX: I10 Essential (primary) hypertension (principal)
CPT/HCPCS: 36415; 80048

== ENCOUNTER → 2021-02-27 14:36 | Outpatient (CLI) | payer MEDICARE, OTHER, SELFPAY ==
[2018-09-23 13:08] VITALS: BMI 34.5
[2021-02-27 15:46] LABS: Hematocrit 35.1 % (37-47); Hemoglobin 12.1 g/dL (12.0-15.0); Mean Corp Hgb Conc 34.5 g/dL (32-36); Mean Corpuscular Hgb 36.9 pg (27.0-32.0); Mean Platelet Vol. 9.8 fl (6.2-12.0); Platelet Count 331 K/mm3 (150-450); RBC Distribution Width CV 14.7 % (11.6-14.6); RBC Distribution Width SD 57.3 fl (35.1-43.9); Red Blood Count 3.28 M/mm3 (4.2-5.4)
[2021-02-27 16:31] LABS: Microalbumin,Random Urine 27.6 mg/L (NO RANGE EST.); Microalbumin:Creatinine Ratio 105.3 mg/g CRE (<30 mg/g CRE)
[2021-02-28 07:46] LABS: PTHIN 75.9 pg/mL (18.4-80.1)
== END ==
PROVIDERS: PCP Family Medicine; Visit Provider Internal Medicine Nephrology
DX: N18.4 Chronic kidney disease, stage 4 (severe) (principal)
CPT/HCPCS: 36415; 82043; 82570; 83970; 85027

== ENCOUNTER 2021-04-04 10:22 | Outpatient (CLI) | payer MEDICARE, OTHER, SELFPAY ==
[2018-09-23 13:08] VITALS: BMI 34.5
[2021-04-04 11:25] LABS: AST(SGOT) 15 U/L (15-37); Alanine Aminotransfer ALT/SGPT 25 U/L (13-56); Albumin, Serum 3.9 g/dL (3.2-5.0); Alkaline Phosphatase 53 U/L (45-117); Anion Gap 6 (5-15); BUN 53 mg/dL (7-18); BUN/Creat Ratio 29.4 RATIO (10-20); Bilirubin, Direct 0.14 mg/dL (0.00-0.30); Calcium,Total 9.3 mg/dL (8.5-10.1); Chloride 100 mmol/L (98-107); Cholesterol 137 mg/dL (200); EST Glomerular Filtration Rate 28 mL/min (>60); Est Glom Filt Rate - Afr Amer 34 mL/min (>60); Glucose 137 mg/dL (74-106); High Density Lipoprotein 59 mg/dL; Potassium 4.4 mmol/L (3.5-5.1); Protein, Total 7.9 g/dL (6.4-8.2); Sodium Level 134 mmol/L (136-145); Triglycerides 172 mg/dL; Very Low Density Lipoprotein 34 mg/dL (5-40)
== END 2021-04-04 23:59 | disposition short-term general hospital (02) ==
LOC: LAB 10:27
PROVIDERS: Internal Medicine Cardiovascular Disease; PCP Family Medicine; Referring Provider Internal Medicine Nephrology; Visit Provider Internal Medicine Nephrology
DX: N18.4 Chronic kidney disease, stage 4 (severe) (principal)
CPT/HCPCS: 36415; 80048; 80061; 80076; 84100

== ENCOUNTER → 2021-09-23 | Outpatient (CLI) | payer MEDICARE, OTHER, SELFPAY ==
[2018-09-23 13:08] VITALS: BMI 34.5
[2021-09-23 08:10] LABS: Protein, Urine (Random) 11.2 mg/dL (<11.9); Protein:Creat Ratio 288 mg/g CRE (0-200)
[2021-09-23 08:26] LABS: Albumin, Serum 3.8 g/dL (3.2-5.0); BUN 60 mg/dL (7-18); Calcium,Total 9.3 mg/dL (8.5-10.1); Chloride 103 mmol/L (98-107); EST Glomerular Filtration Rate 35 mL/min (>60); Est Glom Filt Rate - Afr Amer 42 mL/min (>60); Glucose 127 mg/dL (74-106); Phosphorus 3.4 mg/dL (2.5-4.9); Potassium 4.6 mmol/L (3.5-5.1); Sodium Level 137 mmol/L (136-145)
[2021-09-23 08:31] LABS: AST(SGOT) 10 U/L (15-37); Alanine Aminotransfer ALT/SGPT 15 U/L (13-56); Albumin, Serum 3.8 g/dL (3.2-5.0); Alkaline Phosphatase 47 U/L (45-117); Bilirubin, Direct 0.16 mg/dL (0.00-0.30); Cholesterol 135 mg/dL (200); Globulin 3.5 g/dL (2.2-4.2); High Density Lipoprotein 60 mg/dL; Protein, Total 7.3 g/dL (6.4-8.2); Triglycerides 96 mg/dL; Very Low Density Lipoprotein 19 mg/dL (5-40)
== END | disposition home or self-care (01) ==
LOC: LAB 07:32
PROVIDERS: Internal Medicine Cardiovascular Disease; PCP Family Medicine; Visit Provider Internal Medicine Nephrology
DX: E11.22 Type 2 diabetes mellitus with diabetic chronic kidney disease (principal); N18.4 Chronic kidney disease, stage 4 (severe); E78.00 Pure hypercholesterolemia, unspecified
CPT/HCPCS: 36415; 80061; 80069; 80076; 82570; 84156

== ENCOUNTER → 2022-01-05 | Outpatient (CLI) | payer MEDICARE, OTHER, SELFPAY ==
[2018-09-23 13:08] VITALS: BMI 34.5
[2022-01-05 09:12] LABS: Absolute Lymphocyte Count 1.88 X10^3/uL (0.83-4.51); Absolute Neutrophil Count 5.9 X10^3/uL (2.0-7.7); Basophil# 0.04 X10^3/uL; Basophil% 0.4 % (0-1); Eosinophil# 0.32 X10^3/uL; Eosinophils% 3.6 % (0-5); Hematocrit 31.1 % (37-47); Hemoglobin 10.3 g/dL (12.0-15.0); Lymphocyte # 1.88 X10^3/ul (0.83-4.51); Mean Corp Hgb Conc 33.1 g/dL (32-36); Mean Corpuscular Volume 108.7 fL (81-99); Mean Platelet Vol. 9.9 fl (6.2-12.0); Monocyte# 0.81 X10^3/uL; NRBC Flagged by Analyzer 0.3 % (0-5); Neutrophil # 5.87 X10^3/uL (2.7-7.7); Neutrophil % 65.6 % (47-70); Platelet Count 325 K/mm3 (150-450); RBC Distribution Width SD 63.8 fl (35.1-43.9); Red Blood Count 2.86 M/mm3 (4.2-5.4)
== END | disposition home or self-care (01) ==
PROVIDERS: PCP Family Medicine; Referring Provider Nurse Practitioner Gerontology; Visit Provider Nurse Practitioner Gerontology
DX: R53.83 Other fatigue (principal)
CPT/HCPCS: 36415; 85025

== ENCOUNTER → 2022-05-14 | Outpatient (CLI) | payer MEDICARE, OTHER, SELFPAY ==
[2018-09-23 13:08] VITALS: BMI 34.5
[2022-05-14 10:25] LABS: Hemoglobin 10.8 g/dL (12.0-15.0); Mean Corp Hgb Conc 33.8 g/dL (32-36); Mean Corpuscular Hgb 37.2 pg (27.0-32.0); Mean Corpuscular Volume 110.3 fL (81-99); Mean Platelet Vol. 9.9 fl (6.2-12.0); Platelet Count 317 K/mm3 (150-450); RBC Distribution Width CV 15.1 % (11.6-14.6); RBC Distribution Width SD 61.1 fl (35.1-43.9); White Blood Count 8.9 K/mm3 (4.4-11.0)
[2022-05-14 10:49] LABS: Albumin, Serum 3.7 g/dL (3.2-5.0); BUN 49 mg/dL (7-18); BUN/Creat Ratio 30.4 RATIO (10-20); Calcium,Total 9.3 mg/dL (8.5-10.1); Chloride 101 mmol/L (98-107); Creatinine, Serum 1.61 mg/dL (0.55-1.02); EST Glomerular Filtration Rate 32 mL/min (>60); Est Glom Filt Rate - Afr Amer 39 mL/min (>60); Glucose 312 mg/dL (74-106); PTHIN 101.4 pg/mL (18.4-80.1); Phosphorus 3.7 mg/dL (2.5-4.9); Potassium 4.5 mmol/L (3.5-5.1); Sodium Level 134 mmol/L (136-145)
== END | disposition home or self-care (01) ==
LOC: LAB 09:51
PROVIDERS: PCP Family Medicine; Referring Provider Internal Medicine Nephrology; Visit Provider Internal Medicine Nephrology
DX: N18.4 Chronic kidney disease, stage 4 (severe) (principal)
CPT/HCPCS: 36415; 80069; 83970; 85027

== ENCOUNTER → 2022-05-21 | Outpatient (CLI) | payer MEDICARE, OTHER, SELFPAY ==
[2018-09-23 13:08] VITALS: BMI 34.5
[2022-05-21 13:11] LABS: Ferritin 104 ng/mL (8-252); Iron 111 ug/dL (50-170); Iron Binding Capacity,Total 319 ug/dL (250-450); PERCENT IRON SATURATION 34.8 % (15.0-55.0)
== END | disposition home or self-care (01) ==
LOC: POLAB3 10:10
PROVIDERS: PCP Family Medicine; Visit Provider Internal Medicine Nephrology
DX: D64.9 Anemia, unspecified (principal)
CPT/HCPCS: 36415; 82728; 83540; 83550

== ENCOUNTER → 2022-07-29 | Outpatient (CLI) | payer MEDICARE, OTHER, SELFPAY ==
[2018-09-23 13:08] VITALS: BMI 34.5
--- NOTE | 2022-07-29 10:42 | ECHOCS_ITS ---
Reason For Study: Dyspnea Procedure This was a 2D Doppler, Color Flow transthoracic echocardiogram. Contrast injection was performed. Exam performed in department. Left Ventricle Normal LV size. Left ventricular systolic function is normal. The estimated ejection fraction is 65 %. Stage 1 diastolic dysfunction. No regional wall motion abnormalities noted. Right Ventricle Normal RV size. Normal systolic function. Atria Normal left atrium. Normal right atrium. Mitral Valve There is mild mitral annular calcification. Tricuspid Valve Normal tricuspid valve. Mild (1+) tricuspid valve insufficiency. Pulmonary artery systolic pressure is 45 mmHg. Aortic Valve Trisinus/trileaflet aortic valve. Pulmonic Valve Normal pulmonic valve. Trivial pulmonic valve insufficiency. Great Vessels Calcified aortic root. The pulmonary artery is normal size. Normal inferior vena cava. Pericardium/Pleural No pericardial effusion. Medication Diluted definity 3ml given slow IV push to enhance endocardial definition. MMode/2D Measurements & Calculations LVIDd: 3.8 cm IVSd: 1.1 cm Ao root diam: 2.8 cm LVIDs: 2.4 cm LVPWd: 0.75 cm RVDd: 3.3 cm FS: 38.5 % LAV(MOD-bp): 45.0 ml LVAd ap4: 25.4 cm2 SV(MOD-sp4): 42.8 ml LAV(MOD-bp) Indexed: 26.5 ml/m2 LVLd ap4: 6.8 cm LAV(MOD-sp2): 42.7 ml EDV(MOD-sp4): 77.3 ml LAV(MOD-sp4): 44.2 ml EDV(sp4-el): 79.8 ml LVAs ap4: 15.5 cm2 LVLs ap4: 6.2 cm ESV(MOD-sp4): 34.5 ml ESV(sp4-el): 33.2 ml EF(MOD-sp4): 55.3 % EF(sp4-el): 58.4 % SV(sp4-el): 46.6 ml LA A4 area: 18.5 cm2 LA dimension(2D): 3.5 cm RA A4 area: 15.5 cm2 Time Measurements MV dec time: 0.27 sec Doppler Measurements & Calculations MV E max pawel: 98.8 cm/sec Lat Peak E' Pawel: 9.4 cm/sec Med Peak E' Pawel: 6.2 cm/sec MV A max pawel: 113.3 cm/sec E/E' lat: 10.5 E/E' med: 16.0 MV E/A: 0.87 MV V2 max: 125.9 cm/sec MV dec slope: 368.5 cm/sec2 Ao V2 max: 133.2 cm/sec MV max P.3 mmHg Ao max P.1 mmHg MV V2 mean: 82.9 cm/sec Ao V2 mean: 105.4 cm/sec MV mean P.0 mmHg Ao mean P.7 mmHg MV V2 VTI: 41.7 cm Ao V2 VTI: 32.9 cm LV V1 max: 102.1 cm/sec PA V2 max: 72.4 cm/sec TR max pawel: 321.6 cm/sec LV V1 max P.2 mmHg TR max P.4 mmHg ECHO/Echo Complete W/ Contrast Interpretation Summary Normal LV size. Left ventricular systolic function is normal. The estimated ejection fraction is 65 %. Stage 1 diastolic dysfunction. Pulmonary artery systolic pressure is 45 mmHg. Contrast injection was performed. Ordering Physician: Dorothy Cody Referring Physician: Oj Fuentes Performed By: Brisa Walter RDCS, RVT
== END | disposition home or self-care (01) ==
LOC: CVS 10:42
PROVIDERS: PCP Family Medicine; Referring Provider Nurse Practitioner Gerontology; Visit Provider Nurse Practitioner Gerontology
DX: R06.09 Other forms of dyspnea (principal)
CPT/HCPCS: 93306; Q9957; A4216; C8929

== ENCOUNTER → 2022-12-23 | Outpatient (CLI) | payer MEDICARE, OTHER, SELFPAY ==
[2018-09-23 13:08] VITALS: BMI 34.5
[2022-12-23 09:40] LABS: Hematocrit 30.8 % (37-47); Hemoglobin 10.7 g/dL (12.0-15.0); Mean Corp Hgb Conc 34.7 g/dL (32-36); Mean Corpuscular Hgb 38.9 pg (27.0-32.0); Mean Platelet Vol. 9.9 fl (6.2-12.0); Platelet Count 313 K/mm3 (150-450); RBC Distribution Width CV 15.6 % (11.6-14.6); RBC Distribution Width SD 63.3 fl (35.1-43.9); Red Blood Count 2.75 M/mm3 (4.2-5.4); White Blood Count 8.8 K/mm3 (4.4-11.0)
[2022-12-23 10:02] LABS: Protein, Urine (Random) 11.2 mg/dL (<11.9); Protein:Creat Ratio 251 mg/g CRE (0-200)
[2022-12-23 10:10] LABS: Albumin, Serum 3.5 g/dL (3.2-5.0); BUN 45 mg/dL (7-18); BUN/Creat Ratio 30.8 RATIO (10-20); Chloride 102 mmol/L (98-107); Creatinine, Serum 1.46 mg/dL (0.55-1.02); EST Glomerular Filtration Rate 36 mL/min (>60); Est Glom Filt Rate - Afr Amer 44 mL/min (>60); Ferritin 149 ng/mL (8-252); Glucose 268 mg/dL (74-106); Iron 126 ug/dL (50-170); Iron Binding Capacity,Total 300 ug/dL (250-450); Phosphorus 3.5 mg/dL (2.5-4.9); Potassium 4.3 mmol/L (3.5-5.1); Sodium Level 133 mmol/L (136-145)
== END | disposition home or self-care (01) ==
LOC: LAB 08:49
PROVIDERS: PCP Family Medicine; Referring Provider Internal Medicine Nephrology; Visit Provider Internal Medicine Nephrology
DX: E11.22 Type 2 diabetes mellitus with diabetic chronic kidney disease (principal); N18.4 Chronic kidney disease, stage 4 (severe); D64.9 Anemia, unspecified
CPT/HCPCS: 36415; 80069; 82570; 82728; 83540; 83550; 84156; 85027

== ENCOUNTER 2023-01-28 16:41 | Inpatient (IN) | payer MEDICARE, OTHER, SELFPAY ==
[2018-09-23 13:08] VITALS: BMI 34.5
[2023-01-28] VITALS (8 sets, daily range): BP systolic 116–139; BP diastolic 53–126; PULSE 80–94; RESP 15–20; TEMP 36.6; O2SAT 89–97; BMI 31.5; BMI 31.1
--- NOTE | 2023-01-28 18:45 | EKG12_ITS ---
Test Reason : Blood Pressure : / mmHG Vent. Rate : 083 BPM Atrial Rate : 083 BPM P-R Int : 124 ms QRS Dur : 082 ms QT Int : 352 ms P-R-T Axes : 042 014 178 degrees QTc Int : 413 ms Normal sinus rhythm with sinus arrhythmia ST & T wave abnormality, consider inferior ischemia ST & T wave abnormality, consider anterolateral ischemia Abnormal ECG Confirmed by FREDDIE PATINO, CARLTON ([id number]), copy editor ANDREW CALHOUN ([id number]) on 02/03/2023 12:02:59 PM Referred By: Confirmed By:CARLTON FRAZIER MD
--- NOTE | 2023-01-28 18:50 | ED.VIS.DYS ---
HPI History of Present Illness Chief Complaint: Shortness of Breath Informant: patient and family Narrative Narrative: 87-year-old female history of coronary artery disease presenting to the emergency room with dyspnea on exertion. Patient states for about the past week whenever she exerts herself she becomes very labored breathing. She denies any chest pain. No orthopnea. No change in leg swelling. No cough or fevers. No wheezing. Patient denies any known lung conditions. Patient denies any significant weight gain. However she states that last month that her kidney doctor she weighed 158 pounds. Here in the bed she weighs 163.7. Sitting in the bed she feels fine. [facility] Medical History Atherosclerosis of coronary artery without angina pectoris Chronic kidney disease Essential (primary) hypertension Hyperlipidemia Hypothyroidism Obesity Pericardial effusion with cardiac tamponade Type 2 diabetes mellitus Home Medications aspirin 81 mg tablet,delayed release 81 mg PO DAILY@0800 01/02/15 [History Last Taken 09/23/18] carvedilol 25 mg tablet 25 mg PO BID 01/02/15 [History Last Taken 09/23/18] cholecalciferol (vitamin D3) 25 mcg (1,000 unit) tablet 1,000 unit PO DAILY 01/02/15 [History Last Taken Unknown] clopidogrel 75 mg tablet 75 mg PO DAILY 01/02/15 [History Last Taken 09/23/18] cranberry 500 mg capsule 500 mg PO DAILY 01/02/15 [History Last Taken Unknown] furosemide 20 mg tablet 20 mg PO DAILY 01/02/15 [History Last Taken Unknown] levothyroxine 75 mcg tablet 75 mcg PO QHS 01/02/15 [History Last Taken 09/23/18] pravastatin 80 mg tablet 80 mg PO DAILY 01/02/15 [History Last Taken Unknown] sitagliptin phosphate 50 mg tablet (Januvia) 50 mg PO DAILY 08/22/18 [History Last Taken Unknown] glipizide 5 mg tablet (Glucotrol) 5 mg PO BID 08/24/18 [History Last Taken Unknown] nitroglycerin 0.4 mg sublingual tablet 0.4 mg sublingual Q5-15M PRN chest pain #25 tabs 12/07/18 [Rx Last Taken Unknown] amlodipine 5 mg tablet (Norvasc) 5 mg PO DAILY #90 tabs 03/30/19 [Rx Last Taken Unknown] citalopram 20 mg tablet 20 mg PO DAILY 08/22/19 [History Last Taken Unknown] folic acid 1 mg tablet 1 mg PO BID 08/22/19 [History Last Taken Unknown] latanoprost 0.005 % eye drops (Xalatan) 1 drp ophthalmic (eye) DAILY 04/04/21 [History Last Taken Unknown] pantoprazole 40 mg tablet,delayed release 40 mg PO DAILY 04/04/21 [History Last Taken Unknown] cyanocobalamin (vitamin B-12) 1,000 mcg capsule 1,000 mcg PO DAILY 05/21/22 [History Last Taken Unknown] isosorbide mononitrate 30 mg tablet,extended release 24 hr 60 mg PO DAILY 09/21/22 [History Last Taken Unknown] vitamins A,C,P-wqko-tnoiag 4,296 mcg-226 mg-90 mg capsule (PreserVision AREDS) 1 cap PO BID 09/21/22 [History Last Taken Unknown] Allergy/AdvReac Type Severity Reaction Status Date / Time quinapril HCl [From Accupril] Allergy Other Verified 01/28/23 16:44 Sulfa (Sulfonamide Allergy Rash Verified 01/28/23 16:44 Antibiotics) Family History Other CAD (coronary artery disease) Diabetes Surgical History History of bladder suspension procedure History of carpal tunnel release History of coronary angioplasty (09/23/18) History of coronary artery stent placement (11/20/11) History of herniorrhaphy History of hysterectomy History of partial thyroidectomy Hx of cholecystectomy S/P pericardial window creation (11/20/11) Social History (Updated 01/28/23 @ 22:[address] Joceline Montgomery DO) Smoking Status: Never smoker alcohol intake: never substance use type: does not use ROS ROS ED Constitutional Constitutional ED: Denies chills, fever(s) or weight loss Eyes Eyes: Denies change in vision or diplopia ENT ENT ED: Denies ear pain, rhinorrhea or sore throat Cardiovascular Cardiovascular: Denies chest pain, orthopnea, palpitations or racing heartbeat Respiratory/Chest Respiratory/Chest: Reports dyspnea and dyspnea on exertion; Denies cough or orthopnea Gastrointestinal Gastrointestinal: Denies abdominal pain, diarrhea, nausea or vomiting Genitourinary Genitourinary ED: Denies dysuria, hematuria or urinary frequency Musculoskeletal Musculoskeletal: Denies arthralgias or myalgias Integumentary Denies abscess or rash Neurologic Neurologic: Denies headache(s) or weakness Psychiatric Psychiatric: Denies anxiety, depression, suicidal ideation or suicidal thoughts Endocrine Endocrinology: Denies polydipsia, polyphagia or polyuria Allergic/Immunologic Allergic/Immunologic ED: Denies mouth swelling, tongue swelling or urticaria EXAM Physical Exam Const Vital Signs: 01/28/23 16:42 01/28/23 17:30 01/28/23 20:00 Temperature 97.8 F Temperature Source Temporal Pulse Rate 80 88 Respiratory Rate 18 15 Respiratory Effort Normal Blood Pressure 116/53 L 117/68 Blood Pressure Mean 74 84 Pulse Ox 89 93 Oxygen Delivery Method Room Air Room Air Room Air 01/28/23 21:09 Temperature Temperature Source Pulse Rate 84 Respiratory Rate 17 Respiratory Effort Blood Pressure 124/54 H Blood Pressure Mean 77 Pulse Ox 93 Oxygen Delivery Method Room Air Positive well nourished and well developed General Appearance ED: well developed HEENT Reports normocephalic, head/scalp atraumatic and moist mucous membranes Eyes PERRL and EOMs intact bilaterally Neck no lymphadenopathy, supple and no JVD Resp normal respiratory effort and clear to auscultation bilaterally Cardio regular rate, regular rhythm and no murmurs GI normal to inspection, nondistended, normoactive bowel sounds and non-tender Palpation: soft Back/Spine no CVA tenderness and normal ROM Extremity normal to inspection General Extremety ED: Negative for edema General Extremity: Negative for edema Neuro oriented x3 and CN's II-XII intact bilaterally Sensorium / Orientation: alert Motor Exam: strength 5/5 throughout Psych mental status grossly normal Mood & Affect: Negative for depressed or tearful Skin no rashes or lesions noted and no wounds MDM MDM MDM Narrative Medical decision making narrative: White count 15.5 with a hemoglobin of 8.9. Platelet count is 4 2. Troponin 11 CRP 56.4 beta natruretic peptide 454. BMP showed a creatinine 1.77 with a BUN of 50. Vitaped interpretation of the chest x-ray is mild to moderate pulmonary edema. The patient's EKG shows new ST T wave abnormalities inferior and anterior laterally when compared to EKG dated 23 September 2018. I am unable to find an EKG that is done after this. She did have an echocardiogram recently showed a normal ejection fraction. We will be get up the patient and have her ambulate she reports dyspnea and her pulse ox becomes 90. She appears to have gained several pounds this month legs are slightly edematous she may have a cardiorenal syndrome based on her lab's. Unexplained leukocytosis and her anemia may be multifactorial-from a dilution due to volume overload and also her MCV is 112. Patient's last heart cath showed blockages which are being managed medically. I am concerned about an anginal equivalent. History & Record Review Discussion w/independent historian: Patient and Family Additional record(s) reviewed:: Prior inpatient record, Prior outpatient record, Prior ED visit and Prior labs Lab Data Labs: Laboratory Results - last 24 hr 01/28/23 17:30 WBC 15.5 H RBC 2.37 L Hgb 8.9 L Hct 26.7 L MCV 112.7 H MCH 37.6 H MCHC 33.3 RDW Std Deviation 64.5 H RDW Coeff of Maria Del Rosario 16.0 H Plt Count 402 MPV 10.0 Immature Gran % (Auto) 0.600 Neut % (Auto) 76.0 H Lymph % (Auto) 10.9 L Crockett % (Auto) 7.3 Eos % (Auto) 4.7 Baso % (Auto) 0.5 Absolute Neuts (auto) 11.8 H Absolute Lymphs (auto) 1.68 Nucleated RBC % 0.9 Sodium 135 L Potassium 4.0 Chloride 100 Carbon Dioxide 24.0 Anion Gap 11 BUN 50 H Creatinine 1.77 H Estim Creat Clear Calc 25.49 Est GFR (MDRD) Af Amer 35 L Est GFR (MDRD) Non-Af 29 L BUN/Creatinine Ratio 28.2 H Glucose 146 H Calcium 9.6 Iron 50 TIBC 202 L Iron Saturation 24.8 Ferritin 296 H Troponin I High Sens 11 C-React Prot Ext Range 56.40 H B-Natriuretic Peptide 454.1 H Radiography Diagnostic Testing: Clinical Impression(s) from Imaging Studies Chest X-Ray 01/28/23 19:15 IMPRESSION: Probable chronic bibasilar interstitial thickening with interval progression since prior study. Cannot exclude superimposed acute inflammatory changes Electronically Signed: Dhruv Rodriguez MD at 19:36 EST Reading Location ID and State: [address] [place] [address] Tel , Service support , EKG Initial EKG: Attestation: I personally reviewed and interpreted this EKG as follows: Comments: Normal sinus rhythm with a ventricular rate of [address]-T wave abnormalities noted inferiorly and anterolaterally. These are new from EKG dated 23 September 2018. Differential Diagnosis Chest pain/SOB: ACS, pneumothorax, pneumonia, aortic dissection and CHF Management Discussion w/another healthcare provider: Hospitalist Discharge Plan Dx/Rx/DC Orders Clinical Impression: Acute on chronic anemia, ROBINS (dyspnea on exertion), Essential (primary) hypertension, Leukocytosis, Acute on chronic diastolic heart failure, Chronic kidney disease, Atherosclerosis of coronary artery without angina pectoris Disposition Disposition: Acute Care [facility] Discharge Date/Time: 01/28/23 22:00
[2023-01-28 19:01] LABS: Absolute Lymphocyte Count 1.68 X10^3/uL (0.83-4.51); Absolute Neutrophil Count 11.8 X10^3/uL (2.0-7.7); Basophil# 0.07 X10^3/uL; Basophil% 0.5 % (0-1); Eosinophil# 0.73 X10^3/uL; Eosinophils% 4.7 % (0-5); Hematocrit 26.7 % (37-47); Hemoglobin 8.9 g/dL (12.0-15.0); Lymphocyte # 1.68 X10^3/ul (0.83-4.51); Lymphocyte % 10.9 % (19-41); Mean Corp Hgb Conc 33.3 g/dL (32-36); Mean Corpuscular Hgb 37.6 pg (27.0-32.0); Mean Corpuscular Volume 112.7 fL (81-99); Monocyte# 1.13 X10^3/uL; Monocyte% 7.3 % (0-10); NRBC Flagged by Analyzer 0.9 % (0-5); Neutrophil # 11.78 X10^3/uL (2.7-7.7); Platelet Count 402 K/mm3 (150-450); RBC Distribution Width SD 64.5 fl (35.1-43.9); Red Blood Count 2.37 M/mm3 (4.2-5.4); White Blood Count 15.5 K/mm3 (4.4-11.0)
[2023-01-28 19:13] LABS: Anion Gap 11 (5-15); BUN 50 mg/dL (7-18); BUN/Creat Ratio 28.2 RATIO (10-20); Calcium,Total 9.6 mg/dL (8.5-10.1); Chloride 100 mmol/L (98-107); Creatinine, Serum 1.77 mg/dL (0.55-1.02); EST Glomerular Filtration Rate 29 mL/min (>60); Est Glom Filt Rate - Afr Amer 35 mL/min (>60); Estimated Creatinine Clearance 25.49 ml/min; Glucose 146 mg/dL (74-106); Sodium Level 135 mmol/L (136-145); Troponin-I HS 11 pg/mL (3.0-54.0)
--- NOTE | 2023-01-28 19:15 | RAD_ITS ---
STUDY: X-RAY CHEST REASON FOR EXAM: Female, 87 years old. dyspnea TECHNIQUE: AP portable COMPARISON: September 19, 2018 FINDINGS: Prominent interstitial markings in both lower lobes... There is no demonstrated pleural abnormality. Normal size heart. Normal mediastinum and sanchez. Normal visualized pulmonary arteries. Mildly calcified visualized aortic arch and descending thoracic aorta. Dorsal spine and shoulders demonstrates degenerative changes. Normal visualized ribs, and clavicles There is no demonstrated abnormality of the visualized soft tissue structures of the upper abdomen. The interstitial thickening in the lower lobes has progressed since previous exam RAD/Chest 1 View (Portable) IMPRESSION: Probable chronic bibasilar interstitial thickening with interval progression since prior study. Cannot exclude superimposed acute inflammatory changes Electronically Signed: Dhruv Rodriguez MD at 19:36 EST ,
[2023-01-28 19:20] LABS: BNP,B-Type NATRIURETIC PEPTIDE 454.1 pg/mL (0-100)
--- NOTE | 2023-01-28 22:31 | PCM.HP.STD ---
HPI - General General Date of Admission: 01/28/23 Date of Service: 01/28/23 Chief Complaint: Shortness of breath on exertion HPI Narrative KRISTEL RYAN, is a 87 F who presented to the emergency department at [facility] on 01/28/2023 due to exertional dyspnea. Patient reports that this has been progressively getting worse over the last 2 years. It significantly affecting her ability to ambulate in her home and she even gets fairly winded when she walks to the bathroom at this point. She states at rest she does not have any significant issues. She has a previous history of coronary disease for which she has multiple stents but is unable to remember what symptoms she had prior to the stent placements. She also complains of increasing fatigue over this time. She does have chronic renal disease and follows with nephrology. Her weight is up some and she complains of some mild lower extremity edema. She denies any fever, chills, cough, sputum production and has been compliant with her home medications. She has not been having any chest pain, nausea, vomiting or diaphoresis. She does not complain of orthopnea and has no known baseline lung disease. She reported she weighed 158 pounds at her nephrology appointment last month and today her weight is 163.7 pounds Vital signs on presentation showed a temperature of 97.8, heart rate 80, blood pressure 116/58, respiratory rate was 18-20 and oxygen saturations were 89% on room air. CBC showed a leukocytosis which is new at 15.5 and a left shift with a 76% neutrophilia, her hemoglobin was 8.9 which is down from her baseline of 10-11 last month. Her chemistry panel showed mild hyponatremia with a sodium of 135 which is close to her baseline, BUN was 50 and serum creatinine was 1.77 which was up from her last assessment at which time her creatinine was 1.46 in December. Her troponin was 11 and her BNP was 454.1. EKG was normal sinus rhythm however she had new T wave inversions in V2 through V6 when compared to her previous EKG in the computer system from 2019. Chest x-ray showed volume overload with bilateral patchy infiltrates. COVID and flu are negative. Respiratory viral panel is pending. Patient was given 60 mg of IV Lasix in the emergency department and request for admission was made. [facility] Medical History Atherosclerosis of coronary artery without angina pectoris Chronic kidney disease Essential (primary) hypertension Hyperlipidemia Hypothyroidism Obesity Pericardial effusion with cardiac tamponade Type 2 diabetes mellitus Home Medications aspirin 81 mg tablet,delayed release 81 mg PO DAILY@0800 01/02/15 [History Last Taken 09/23/18] carvedilol 25 mg tablet 25 mg PO BID 01/02/15 [History Last Taken 09/23/18] cholecalciferol (vitamin D3) 25 mcg (1,000 unit) tablet 1,000 unit PO DAILY 01/02/15 [History Last Taken Unknown] clopidogrel 75 mg tablet 75 mg PO DAILY 01/02/15 [History Last Taken 09/23/18] cranberry 500 mg capsule 500 mg PO DAILY 01/02/15 [History Last Taken Unknown] furosemide 20 mg tablet 20 mg PO DAILY 01/02/15 [History Last Taken Unknown] levothyroxine 75 mcg tablet 75 mcg PO QHS 01/02/15 [History Last Taken 09/23/18] pravastatin 80 mg tablet 80 mg PO DAILY 01/02/15 [History Last Taken Unknown] sitagliptin phosphate 50 mg tablet (Januvia) 50 mg PO DAILY 08/22/18 [History Last Taken Unknown] glipizide 5 mg tablet (Glucotrol) 5 mg PO BID 08/24/18 [History Last Taken Unknown] nitroglycerin 0.4 mg sublingual tablet 0.4 mg sublingual Q5-15M PRN chest pain #25 tabs 12/07/18 [Rx Last Taken Unknown] amlodipine 5 mg tablet (Norvasc) 5 mg PO DAILY #90 tabs 03/30/19 [Rx Last Taken Unknown] citalopram 20 mg tablet 20 mg PO DAILY 08/22/19 [History Last Taken Unknown] folic acid 1 mg tablet 1 mg PO BID 08/22/19 [History Last Taken Unknown] latanoprost 0.005 % eye drops (Xalatan) 1 drp ophthalmic (eye) DAILY 04/04/21 [History Last Taken Unknown] pantoprazole 40 mg tablet,delayed release 40 mg PO DAILY 04/04/21 [History Last Taken Unknown] cyanocobalamin (vitamin B-12) 1,000 mcg capsule 1,000 mcg PO DAILY 05/21/22 [History Last Taken Unknown] isosorbide mononitrate 30 mg tablet,extended release 24 hr 60 mg PO DAILY 09/21/22 [History Last Taken Unknown] vitamins A,C,Q-plzc-bxlpob 4,296 mcg-226 mg-90 mg capsule (PreserVision AREDS) 1 cap PO BID 09/21/22 [History Last Taken Unknown] Allergy/AdvReac Type Severity Reaction Status Date / Time quinapril HCl [From Accupril] Allergy Other Verified 01/28/23 16:44 Sulfa (Sulfonamide Allergy Rash Verified 01/28/23 16:44 Antibiotics) Family History Other CAD (coronary artery disease) Diabetes Surgical History History of bladder suspension procedure History of carpal tunnel release History of coronary angioplasty (09/23/18) History of coronary artery stent placement (11/20/11) History of herniorrhaphy History of hysterectomy History of partial thyroidectomy Hx of cholecystectomy S/P pericardial window creation (11/20/11) Social History (Updated 01/28/23 @ 22:[address] Joceline Montgomery DO) Smoking Status: Never smoker alcohol intake: never substance use type: does not use ROS Constitutional Constitutional: Reports fatigue and weakness; Denies anorexia, change in weight, chills, fever(s), malaise, night sweats or other Eyes Eyes: Denies blurry vision, change in eye color, change in vision, discharge from eye(s), double vision, erythema, eye pain, loss of vision or other ENT HEENT: Denies abnormal hearing, dysphagia, ear pain, epistaxis, headache(s), hearing loss, nasal congestion, nasal discharge, post nasal drip, sinus pressure, sore throat or other Cardiovascular Cardiovascular: Reports dyspnea on exertion, edema and other Details: Decreased exercise tolerance ; Denies chest pain, claudication, lightheadedness, orthopnea, palpitations, paroxysmal nocturnal dyspnea, rapid heart rate or syncope Respiratory/Chest Respiratory/Chest: Reports dyspnea and shortness of breath with exertion; Denies cough, excessive phlegm production, hemoptysis, productive cough, shortness of breath at rest, wheezing or other Gastrointestinal Gastrointestinal: Denies abdominal pain, coffee ground emesis, constipation, diarrhea, dyspepsia, hematemesis, hematochezia, loose stools, melena, nausea, vomiting or other Genitourinary Genitourinary: Reports urinary incontinence; Denies burning urination, difficulty urinating, dysuria, hematuria, nocturia, urinary frequency, urinary hesitancy, urinary urgency or other Musculoskeletal Musculoskeletal: Reports joint pain and joint stiffness; Denies arthralgias, back pain, joint swelling, myalgias, neck pain or other Neurologic Neurologic: Denies abnormal gait, abnormal speech, confusion, disequilibrium, dizziness, focal weakness, headache(s), numbness, paresthesias, seizure-like activity, seizures, syncope, tingling, tremor(s) or other Psychiatric Psychiatric: Denies anxiety, depression, homicidal ideation, suicidal ideation or other Endocrine Endocrinology: Denies change in body appearance, cold intolerance, excessive sweating, heat intolerance, polydipsia, polyuria or other Hematologic/Lymphatic Hematologic/Lymphatic: Denies anemia, easy bleeding, easy bruising, lymphadenopathy or other Allergic/Immunologic Allergic/Immunologic: Denies rhinitis, hives, eczemia, asthma or other Vital Signs Vital Signs Vital Signs: 01/28/23 16:42 01/28/23 17:30 01/28/23 20:00 Temperature 97.8 F Temperature Source Temporal Pulse Rate 80 88 Respiratory Rate 18 15 Respiratory Effort Normal Blood Pressure 116/53 L 117/68 Blood Pressure Mean 74 84 Pulse Ox 89 93 Oxygen Delivery Method Room Air Room Air Room Air 01/28/23 21:09 Temperature Temperature Source Pulse Rate 84 Respiratory Rate 17 Respiratory Effort Blood Pressure 124/54 H Blood Pressure Mean 77 Pulse Ox 93 Oxygen Delivery Method Room Air Weight Weight: 70 kg Body Mass Index (BMI) 31.1 Physical Exam Const alert, oriented x3, no apparent distress and well nourished; Negative for average body habitus Constitutional Narrative: Overweight, elderly, white female, sitting up in bed, appears comfortable nontoxic, daughter at bedside, currently on room air with saturations fluctuating between 89 and 93% at rest General Appearance: cooperative HEENT normocephalic and head/scalp atraumatic HEENT Narrative: Patient with upper dental plate in place, mild hearing loss, mucous membranes are moist and Mallampati is 2 Eyes PERRL, EOMs intact bilaterally and conjunctivae normal Eyes Narrative: No scleral icterus Neck no lymphadenopathy, supple, No no JVD and no carotid bruits Neck Narrative: Positive JVD, trachea midline, no thyroid enlargement Resp normal respiratory effort, no retractions, no use of accessory muscles and No clear to auscultation bilaterally Resp Narrative: Scattered crackles more notable at bases bilaterally Auscultation: crackles; Negative for rhonchi or wheezes Cardio regular rate, regular rhythm, S1 normal heart sound, S2 normal heart sound, no murmurs, no rub, no gallops and no clicks GI normal to inspection, nondistended, normoactive bowel sounds, soft to palpation and non-tender Extremity Extremity Narrative: Trace bilateral lower extremity edema, no cyanosis or clubbing Skin no rashes or lesions noted, no wounds, skin turgor normal, no jaundice, no petechiae and no mottling Skin Narrative: Skin is pale Neuro oriented x3, CN's II-XII intact bilaterally, moves all extremities and no focal motor deficits Speech: speech normal Psych affect normal Psych Narrative: Eye contact is good, patient is very pleasant, interacts appropriately Results Lab / Micro Data Attestation: I reviewed the patient's lab results. 01/28/23 17:30 01/28/23 17:30 Labs: Laboratory Results - last 24 hr 01/28/23 17:30: WBC 15.5 H, RBC 2.37 L, Hgb 8.9 L, Hct 26.7 L, MCV 112.7 H, MCH 37.6 H, MCHC 33.3, RDW Std Deviation 64.5 H, RDW Coeff of Maria Del Rosario 16.0 H, Plt Count 402, MPV 10.0, Immature Gran % (Auto) 0.600, Neut % (Auto) 76.0 H, Lymph % (Auto) 10.9 L, Shannon % (Auto) 7.3, Eos % (Auto) 4.7, Baso % (Auto) 0.5, Absolute Neuts (auto) 11.8 H, Absolute Lymphs (auto) 1.68, Nucleated RBC % 0.9, Sodium 135 L, Potassium 4.0, Chloride 100, Carbon Dioxide 24.0, Anion Gap 11, BUN 50 H, Creatinine 1.77 H, Estim Creat Clear Calc 25.49, Est GFR (MDRD) Af Amer 35 L, Est GFR (MDRD) Non-Af 29 L, BUN/Creatinine Ratio 28.2 H, Glucose 146 H, Calcium 9.6, Troponin I High Sens 11, B-Natriuretic Peptide 454.1 H Micro: Microbiology 01/28/23 19:30 Nasal Secretion SARS-CoV-2 & FLU Antigen (Rapid) - Final EKG Initial EKG: Attestation: I personally reviewed and interpreted this EKG as follows: Prior EKG tracings: available for review EKG Rhythm Intrepretation: Sinus Rhythm (With new ST wave inversions in V2 through V6) Imagaing Radiology Impression Chest X-Ray 01/28/23 19:15 IMPRESSION: Probable chronic bibasilar interstitial thickening with interval progression since prior study. Cannot exclude superimposed acute inflammatory changes Electronically Signed: Dhruv Rodriguez MD at 19:36 EST Reading Location ID and State: [facility] / [place] Tel , Service support , Assessment & Plan Assessment/Plan (1) ROBINS (dyspnea on exertion): (2) Fatigue: (3) Leukocytosis: (4) Acute on chronic anemia: (5) JOHN (acute kidney injury): (6) Acute on chronic diastolic heart failure: (7) Acute electrocardiogram changes: PLAN: Plan Dyspnea on exertion/fatigue -I think a component of this is related to acute decompensated heart failure with preserved ejection fraction due to abnormal diastolic dysfunction however I am concerned that this may be an anginal equivalent as well -We will consult cardiology for consideration for cardiac catheterization versus noninvasive testing -Baseline renal dysfunction may complicate getting this done -Check echocardiogram -Last echo was done in 2019 and showed an EF of 65% with stage I diastolic dysfunction and no valvular abnormality -Check TSH -Lasix 40 mg IV push twice daily -Daily weights -Accurate I's and O's -Sodium and fluid restricted diet JOHN on CKD stage IIIb -Last serum creatinine was 1.46 on 12/23/2022 -Serum creatinine today is 1.77 indicating mild JOHN -Hold home Lasix and utilize IV Lasix as I am concerned that this may be slight cardiorenal syndrome due to the above -Follow and trend renal function and urine output -Follows with Dr. Safia Montgomery from nephrology as an outpatient EKG changes -Patient now with no chest pain however she does have T wave inversion in V3 2 through V6 that was not present on last reviewed EKG from 2019 -Again I am concerned that her above symptoms may be an anginal equivalent and with EKG findings this solidifies this concern even more -Continue home medications including aspirin, Plavix's, carvedilol and statin -Cycle cardiac enzymes -Cardiology consult pending Acute on chronic diastolic heart failure -Repeat echocardiogram -Check TSH -Treatment as above Leukocytosis -Patient not with any infectious symptoms at this time -COVID flu and respiratory viral panels are pending -Blood cultures are pending -UA is pending -We will hold off on empiric antibiotics at this time -Sed rate and CRP are pending as well Acute on chronic anemia -Macrocytic in nature -Hemoglobin appears to run between 10 and 11 -Hemoglobin today on presentation was 8.9 -Iron studies are pending -Check guaiac stool -Patient denies any black tarry stools or blood in her bowel movements DM-2 -Hold home oral agents -Sliding scale -Cardiac/carb controlled diet -Accu-Cheks as ordered CAD/HTN/HPL -Has known triple-vessel disease with first cardiac catheterization done in 2011 with postprocedure complication of pericardial effusion that required pericardial window -Repeat cardiac catheterization in 2019 which demonstrated preserved ejection fraction, proximal LAD luminal irregularities, distal LAD with 80% stenosis, circumflex with mid vessel 75% stenotic lesion and the obtuse marginal had a 95% stenosis. The right coronary artery which was previously stented and almost the entire vessel had 40 to 50% rein-stent stenosis. -Angioplasty was done at that time to the mid circumflex and medical therapy was recommended for the rest of her lesions -Continue home oral antihypertensives -Continue home statin -Continue home aspirin and Plavix Glaucoma -Continue home eyedrops Hypothyroidism -Continue home levothyroxine Check TSH due to fatigue Vitamin D deficiency -Hold home vitamin D supplement and restart at discharge Obesity -Recommend weight loss -Complicates treatment, prognosis, outcomes GERD -Continue home PPI DVT prophylaxis -Heparin SQ 3 times daily CODE STATUS -DNR CCA okay for short-term intubation Charges/Coding Visit Charges Inpatient E&M: 80826 Init Hosp L3
[2023-01-28 22:32] LABS: Ferritin 296 ng/mL (8-252); Iron 50 ug/dL (50-170); Iron Binding Capacity,Total 202 ug/dL (250-450); PERCENT IRON SATURATION 24.8 % (15.0-55.0)
[2023-01-28 22:58] LABS: Bedside Glucose 153 mg/dL (74-106)
[2023-01-28 23:23] LABS: Erythrocyte Sedimentation Rate 34 mm/hr (0-30)
[2023-01-28 23:27] LABS: Troponin-I HS 13 pg/mL (3.0-54.0)
[2023-01-28] MEDS: Furosemide 100 MG/10 ML Vial 60 MG IV (23:37)
[2023-01-28] MEDS: 0.9% Saline Lock 10 ML Syringe IV (23:39)
[2023-01-29] VITALS (9 sets, daily range): BP systolic 109–133; BP diastolic 49–61; PULSE 73–87; RESP 16–22; TEMP 36.1–36.9; O2SAT 93–99; BMI 31.1
[2023-01-29 00:55] LABS: Mucous, Urine 0 SEEN /hpf (<or=2+); Red Blood Cells-Urine 0 SEEN /hpf (0-5); Squamous Epithelial Cells - UA 0 SEEN /hpf (5-10)
[2023-01-29 00:58] LABS: Color, Urine Yellow (Yellow); Glucose, Dipstick Normal (Normal); Ketone-Dipstick Negative (Negative); Leukocyte Esterase-Dipstick 100 /ul (Negative); Nitrite-Dipstick Negative (Negative); Occult Blood-Urine Negative /ul (Negative); Protein-Dipstick Negative (Negative); Urine Bilirubin Dipstick Negative (Negative); Urine Clarity Clear (Clear); Urine Urobilinogen Normal (Normal)
[2023-01-29 01:04] LABS: Bacteria 2+ /hpf (None Seen); White Blood Cells 10-25 SEEN /hpf (0-5)
[2023-01-29] MEDS: Acetaminophen 325 MG Tablet 650 MG PO ×2 (02:40→10:12)
[2023-01-29 03:36] LABS: Absolute Lymphocyte Count 1.57 X10^3/uL (0.83-4.51); Absolute Neutrophil Count 9.8 X10^3/uL (2.0-7.7); Basophil# 0.04 X10^3/uL; Basophil% 0.3 % (0-1); Eosinophil# 0.56 X10^3/uL; Eosinophils% 4.3 % (0-5); Hematocrit 25.9 % (37-47); Hemoglobin 8.7 g/dL (12.0-15.0); Lymphocyte # 1.57 X10^3/ul (0.83-4.51); Lymphocyte % 12.1 % (19-41); Mean Corp Hgb Conc 33.6 g/dL (32-36); Mean Corpuscular Hgb 36.7 pg (27.0-32.0); Mean Corpuscular Volume 109.3 fL (81-99); Mean Platelet Vol. 9.5 fl (6.2-12.0); Monocyte# 0.92 X10^3/uL; Monocyte% 7.1 % (0-10); NRBC Flagged by Analyzer 0.8 % (0-5); Neutrophil # 9.78 X10^3/uL (2.7-7.7); Neutrophil % 75.4 % (47-70); Platelet Count 394 K/mm3 (150-450); RBC Distribution Width CV 15.6 % (11.6-14.6); RBC Distribution Width SD 60.9 fl (35.1-43.9); Red Blood Count 2.37 M/mm3 (4.2-5.4)
[2023-01-29 03:56] LABS: Troponin-I HS 14 pg/mL (3.0-54.0)
[2023-01-29 05:25] LABS: ALB/GLOB Ratio 0.9 RATIO (0.9-2.4); AST(SGOT) 5 U/L (15-37); Alanine Aminotransfer ALT/SGPT 10 U/L (13-56); Albumin, Serum 3.1 g/dL (3.2-5.0); Alkaline Phosphatase 81 U/L (45-117); Anion Gap 11 (5-15); BUN 47 mg/dL (7-18); BUN/Creat Ratio 33.6 RATIO (10-20); Calcium,Total 9.1 mg/dL (8.5-10.1); Chloride 101 mmol/L (98-107); EST Glomerular Filtration Rate 38 mL/min (>60); Est Glom Filt Rate - Afr Amer 46 mL/min (>60); Estimated Creatinine Clearance 31.88 ml/min; Globulin 3.4 g/dL (2.2-4.2); Glucose 143 mg/dL (74-106); Magnesium 1.7 mg/dL (1.6-2.6); Phosphorus 3.6 mg/dL (2.5-4.9); Potassium 3.4 mmol/L (3.5-5.1); Protein, Total 6.5 g/dL (6.4-8.2); Sodium Level 139 mmol/L (136-145); Thyroid Stim Hormone (TSH) 1.19 uIU/mL (0.358-3.74)
[2023-01-29] MEDS: Heparin Injection (Vial) 5,000 UNIT/ML VIAL 5000 UNIT SC ×3 (05:33→21:33)
--- NOTE | 2023-01-29 05:55 | ECHOD_ITS ---
Reason For Study: CHF Procedure This was a 2D Doppler, Color Flow transthoracic echocardiogram. Exam performed portable in patient room. Left Ventricle Normal left ventricle. The estimated ejection fraction is 55-60 %. Right Ventricle Normal right ventricle. Normal systolic function. Atria Normal left atrium. Normal right atrium. Mitral Valve There is moderate mitral annular calcification. Mild (1+) mitral valve insufficiency. Tricuspid Valve Normal tricuspid valve. Mild tricuspid valve insufficiency. Aortic Valve Normal aortic valve. No aortic valve insufficiency. MMode/2D Measurements & Calculations LVIDd: 3.8 cm IVSd: 0.88 cm Ao root diam: 2.9 cm LVIDs: 2.7 cm LVPWd: 0.69 cm RVDd: 3.6 cm FS: 29.4 % LAV(MOD-bp): 51.6 ml SV(MOD-sp4): 31.6 ml LVAd ap4: 21.1 cm2 LAV(MOD-bp) Indexed: 35.8 ml/m2 LVLd ap4: 6.7 cm LAV(MOD-sp2): 66.3 ml EDV(MOD-sp4): 55.1 ml LAV(MOD-sp4): 40.3 ml EDV(sp4-el): 56.9 ml LVAs ap4: 12.6 cm2 LVLs ap4: 5.8 cm ESV(MOD-sp4): 23.5 ml ESV(sp4-el): 23.5 ml EF(MOD-sp4): 57.4 % EF(sp4-el): 58.8 % SV(sp4-el): 33.5 ml LA A4 area: 17.1 cm2 LA dimension(2D): 3.2 cm TAPSE: 1.8 cm RA A4 area: 17.3 cm2 Time Measurements MV dec time: 0.16 sec Doppler Measurements & Calculations MV E max pawel: 138.7 cm/sec Lat Peak E' Pawel: 8.8 cm/sec Med Peak E' Pawel: 6.1 cm/sec MV A max pawel: 99.0 cm/sec E/E' lat: 15.8 E/E' med: 22.8 MV E/A: 1.4 MV dec slope: 862.1 cm/sec2 Ao V2 max: 153.1 cm/sec LV V1 max: 113.2 cm/sec Ao max P.4 mmHg LV V1 max P.1 mmHg Ao V2 mean: 116.5 cm/sec Ao mean P.8 mmHg Ao V2 VTI: 36.8 cm PA V2 max: 81.5 cm/sec TR max pawel: 380.0 cm/sec TR max P.8 mmHg ECHO/Echo Complete Interpretation Summary The estimated ejection fraction is 55-60 %. LV systolic function Mild MR Mild TR No significant change from previous echocardiogram Ordering Physician: Joceline Montgomery Referring Physician: Oj Fuentes Performed By: Brisa Walter, ARMAND, RVT
[2023-01-29 05:57] LABS: Bedside Glucose 106 mg/dL (74-106)
[2023-01-29] MEDS: Citalopram 20 MG Tablet PO (10:04)
[2023-01-29] MEDS: Clopidogrel Bisulfate 75 MG Tablet PO (10:05)
[2023-01-29] MEDS: Aspirin E.C. 81 MG Tablet PO (10:05)
[2023-01-29] MEDS: Pantoprazole Sodium 40 MG Tablet PO (10:05)
[2023-01-29] MEDS: LINAGLIPTIN 5 MG TABLET PO (10:05)
[2023-01-29] MEDS: Carvedilol 25 MG Tablet PO ×2 (10:05→17:04)
[2023-01-29] MEDS: Folic Acid 1 MG Tablet PO ×2 (10:05→17:04)
[2023-01-29] MEDS: Isosorbide Mononitrate 60 MG Tablet PO (10:05)
[2023-01-29] MEDS: amLODIPine 5 MG Tablet PO (10:05)
[2023-01-29] MEDS: Multivitamin (Healthy Eyes) Capsule 1 CAP PO ×2 (10:06→21:33)
[2023-01-29] MEDS: Furosemide 40 MG/4 ML Vial IV ×2 (10:12→17:05)
--- NOTE | 2023-01-29 10:47 | CON.PCM.CA_ITS ---
<Statement entered by Shahnaz Reeves MD - 01/29/23 16:23> Pt seen & evaluated w/ALONZO. I personally interviewed & exam the pt. I was involved in all aspects of pt's orders, interpretation of results & treatment Assessment & Plan Assessment/Plan (1) ROBINS (dyspnea on exertion): (2) Acute on chronic diastolic heart failure: (3) History of coronary angioplasty: (4) History of coronary artery stent placement: (5) Essential (primary) hypertension: (6) Hyperlipidemia: QUALIFIERS: Hyperlipidemia type: pure hypercholesterolemia Qualified Code(s): E78.00 - Pure hypercholesterolemia, unspecified; E78.0 - Pure hypercholesterolemia (7) Chronic kidney disease: PLAN: Plan * Troponins are negative. She currently does not have any CP, if echo is similar to previous feel she can have a stress test on OP basis. * Echocardiogram is pending. She did have an elevated BNP. SOB has improved with IV lasix. * BP is controlled * Will continue with home medications: Plavix, Norvasc, Coreg, Isosorbide, Pravastatin, ASA. * Diastolic HF could be related to her anemia. HPI Consult Data Date of Consult: 01/29/23 HPI Narrative HPI Narrative: KRISTEL RYAN, is a 87 F who presented to [facility] ER on 01/28/23 for increased SOB, She notes that she had increased SOB over the last 2 weeks but yesterday it was concerning. She denies orthopnea, chest pain, palpitations, lightheadedness, dizziness or edema. Troponins trended . BNP was elevated at 454. Hgb is 8.7. She has a history of coronary artery disease with triple-vessel disease. 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 Postprocedure she developed hypotension and had a moderate global pericardial effusion and underwent an emergent pericardial window placement. In September 2018 she underwent a cardiac catheterization which demonstrated preserved ejection fraction of 60%, proximal LAD with luminal irregularities in the distal LAD with an 80% stenotic lesion. The circumflex artery had a mid 75% stenotic lesion and this obtuse marginal vessel had a long 95% stenosis of the first obtuse marginal branch. The right coronary artery which was previously stented involving almost the entire vessel had approximately 40 to 50% in-stent stenosis. She underwent angioplasty of the mid circumflex artery . She also has a hx of hypertension, HL and CKD. [facility] Medical History Atherosclerosis of coronary artery without angina pectoris Chronic kidney disease Essential (primary) hypertension Hyperlipidemia Hypothyroidism Obesity Pericardial effusion with cardiac tamponade Type 2 diabetes mellitus Home Medications aspirin 81 mg tablet,delayed release 81 mg PO DAILY@0800 01/02/15 [History Last Taken 09/23/18] carvedilol 25 mg tablet 25 mg PO BID 01/02/15 [History Last Taken 09/23/18] cholecalciferol (vitamin D3) 25 mcg (1,000 unit) tablet 1,000 unit PO DAILY 01/02/15 [History Last Taken Unknown] clopidogrel 75 mg tablet 75 mg PO DAILY 01/02/15 [History Last Taken 09/23/18] cranberry 500 mg capsule 500 mg PO DAILY 01/02/15 [History Last Taken Unknown] furosemide 20 mg tablet 20 mg PO DAILY 01/02/15 [History Last Taken Unknown] levothyroxine 75 mcg tablet 75 mcg PO QHS 01/02/15 [History Last Taken 09/23/18] pravastatin 80 mg tablet 80 mg PO DAILY 01/02/15 [History Last Taken Unknown] sitagliptin phosphate 50 mg tablet (Januvia) 50 mg PO DAILY 08/22/18 [History Last Taken Unknown] glipizide 5 mg tablet (Glucotrol) 5 mg PO BID 08/24/18 [History Last Taken Unknown] nitroglycerin 0.4 mg sublingual tablet 0.4 mg sublingual Q5-15M PRN chest pain #25 tabs 12/07/18 [Rx Last Taken Unknown] amlodipine 5 mg tablet (Norvasc) 5 mg PO DAILY #90 tabs 03/30/19 [Rx Last Taken Unknown] citalopram 20 mg tablet 20 mg PO DAILY 08/22/19 [History Last Taken Unknown] folic acid 1 mg tablet 1 mg PO BID 08/22/19 [History Last Taken Unknown] latanoprost 0.005 % eye drops (Xalatan) 1 drp ophthalmic (eye) .daily qhs eye 04/04/21 [History Last Taken Unknown] pantoprazole 40 mg tablet,delayed release 40 mg PO DAILY 04/04/21 [History Last Taken Unknown] cyanocobalamin (vitamin B-12) 1,000 mcg capsule 1,000 mcg PO DAILY 05/21/22 [History Last Taken Unknown] isosorbide mononitrate 30 mg tablet,extended release 24 hr 60 mg PO DAILY [History Last Taken Unknown] vitamins A,C,R-zush-plpmca 4,296 mcg-226 mg-90 mg capsule (PreserVision AREDS) 1 cap PO BID 09/21/22 [History Last Taken Unknown] Allergy/AdvReac Type Severity Reaction Status Date / Time quinapril HCl [From Accupril] Allergy Other Verified 01/28/23 16:44 Sulfa (Sulfonamide Allergy Rash Verified 01/28/23 16:44 Antibiotics) Family History Other CAD (coronary artery disease) Diabetes Surgical History History of bladder suspension procedure History of carpal tunnel release History of coronary angioplasty (09/23/18) History of coronary artery stent placement (11/20/11) History of herniorrhaphy History of hysterectomy History of partial thyroidectomy Hx of cholecystectomy S/P pericardial window creation (11/20/11) Social History (Updated 01/28/23 @ 22:[address] Joceline Montgomery DO) Smoking Status: Never smoker alcohol intake: never substance use type: does not use ROS Constitutional Constitutional: Denies chills, fatigue, frequent falls, headache(s) or lethargy Eyes Eyes: Denies acute decrease in peripheral vision, blurry vision or change in vision ENT HEENT: Denies dizziness, epistaxis or vertigo Cardiovascular Cardiovascular: Reports as per HPI; Denies chest pain at rest, chest pain with activity, claudication, dyspnea at rest, edema, lightheadedness, orthopnea, orthostatic symptoms or palpitations Respiratory/Chest Respiratory/Chest: Denies cough or wheezing Gastrointestinal Gastrointestinal: Denies abdominal pain, bloating, coffee ground emesis, diarrhea, heartburn, hematemesis, hematochezia, melena or nausea Genitourinary Genitourinary: Denies hematuria Musculoskeletal Musculoskeletal: Denies myalgias, numbness or tingling Neurologic Neurologic: Denies abnormal gait, abnormal speech, memory loss, paresthesias or weakness Physical Exam Const alert, oriented x3, no apparent distress and well nourished; Negative for average body habitus General Appearance: cooperative HEENT normocephalic and head/scalp atraumatic HEENT Narrative: Patient with upper dental plate in place, mild hearing loss, mucous membranes are moist Eyes PERRL, EOMs intact bilaterally and conjunctivae normal Eyes Narrative: No scleral icterus Neck no lymphadenopathy, supple, No no JVD and no carotid bruits Neck Narrative: Positive JVD, trachea midline, no thyroid enlargement Resp Resp Narrative: Scattered crackles more notable at bases bilaterally Auscultation: crackles; Negative for rhonchi or wheezes Cardio regular rate, regular rhythm, S1 normal heart sound, S2 normal heart sound, no murmurs, no rub, no gallops and no clicks GI normal to inspection, nondistended, normoactive bowel sounds, soft to palpation and non-tender Extremity Extremity Narrative: Trace bilateral lower extremity edema, no cyanosis or clubbing Skin no rashes or lesions noted, no wounds, skin turgor normal, no jaundice, no petechiae and no mottling Skin Narrative: Skin is pale Neuro oriented x3, CN's II-XII intact bilaterally, moves all extremities and no focal motor deficits Speech: speech normal Psych affect normal Psych Narrative: Eye contact is good, patient is very pleasant, interacts appropriately Risk Stratification Risk Stratification Applicable: No Charges/Coding Visit Charges Office Visits / Consults: 42827 IP Consult L4 Objective Data Vital Signs: Vital Signs Temp Pulse Resp BP Pulse Ox O2 Del Method O2 Flow Rate 98.5 F 81 16 130/53 H 97 Nasal Cannula 2 01/29/23 10:02 01/29/23 10:02 01/29/23 10:02 01/29/23 10:02 01/29/23 10:02 01/29/23 10:02 01/29/23 10:02 Oxygen Flow Rate (L/min) 2 Oxygen Delivery Method Nasal Cannula Weight: 154 lb 5.177 oz Body Mass Index (BMI) 31.1 Intake & Output: Intake and Output for Last 24 Hours 01/27/23 01/28/23 01/29/23 23:59 23:59 23:59 Intake Total 120 / 120 Output Total 1800 / 1800 Balance -1680 / -1680 Lab / Micro Data 01/29/23 03:07 01/29/23 03:07 Labs: Laboratory Results - last 24 hr 01/28/23 17:30: WBC 15.5 H, RBC 2.37 L, Hgb 8.9 L, Hct 26.7 L, MCV 112.7 H, MCH 37.6 H, MCHC 33.3, RDW Std Deviation 64.5 H, RDW Coeff of [place] 16.0 H, Plt Count 402, MPV 10.0, Immature Gran % (Auto) 0.600, Neut % (Auto) 76.0 H, Lymph % (Auto ) 10.9 L, [place] % (Auto) 7.3, Eos % (Auto) 4.7, Baso % (Auto) 0.5, Absolute Neuts (auto) 11.8 H, Absolute Lymphs (auto) 1.68, Nucleated RBC % 0.9, Sodium 135 L, Potassium 4.0, Chloride 100, Carbon Dioxide 24.0, Anion Gap 11, BUN 50 H, Creatinine 1.77 H, Estim Creat Clear Calc 25.49, Est GFR (MDRD) Af Amer 35 L, Est GFR (MDRD) Non-Af 29 L, BUN/Creatinine Ratio 28.2 H, Glucose 146 H, Calcium 9.6, Iron 50, TIBC 202 L, Iron Saturation 24.8, Ferritin 296 H, Troponin I High Sens 11, C-React Prot Ext Range 56.40 H, B-Natriuretic Peptide 454.1 H 01/28/23 22:39: POC Glucose 153 H 01/28/23 22:48: ESR 34 H, Troponin I High Sens 13 01/28/23 23:55: Urine Color Yellow, Urine Clarity Clear, Urine pH 6.0, Ur Specific [place] 1.010, Urine Protein Negative, Urine Glucose (UA) Normal, Urine Ketones Negative, Urine Occult Blood Negative, Urine Nitrite Negative, Urine Bilirubin Negative, Urine Urobilinogen Normal, Ur Leukocyte Esterase 100 H, Urine RBC 0 SEEN, Urine WBC 10-25 SEEN, Ur Squamous Epith Cells 0 SEEN, Urine Bacteria 2+, Urine Mucus 0 SEEN 01/29/23 03:07: WBC 13.0 H, RBC 2.37 L, Hgb 8.7 L, Hct 25.9 L, MCV 109.3 H, MCH 36.7 H, MCHC 33.6, RDW Std Deviation 60.9 H, RDW Coeff of [place] 15.6 H, Plt Count 394, MPV 9.5, Immature Gran % (Auto) 0.800, Neut % (Auto) 75.4 H, Lymph % (Auto) 12.1 L, [place] % (Auto) 7.1, Eos % (Auto) 4.3, Baso % (Auto) 0.3, Absolute Neuts (auto) 9.8 H, Absolute Lymphs (auto) 1.57, Nucleated RBC % 0.8, Sodium 139, Potassium 3.4 L, Chloride 101, Carbon Dioxide 27.0, Anion Gap 11, BUN 47 H, Creatinine 1.40 H, Estim Creat Clear Calc 31.88, Est GFR (MDRD) Af Amer 46 L, Est GFR (MDRD) Non-Af 38 L, BUN/Creatinine Ratio 33.6 H, Glucose 143 H, Calcium 9.1, Phosphorus 3.6, Magnesium 1.7, Total Bilirubin 0.60, AST 5 L, ALT 10 L, Alkaline Phosphatase 81, Troponin I High Sens 14, Total Protein 6.5, Albumin 3.1 L, Globulin 3.4, Albumin/Globulin Ratio 0.9, TSH 1.19 01/29/23 05:37: POC Glucose 106 Micro: Microbiology 01/28/23 19:30 Mucosa - Nose Respiratory Panel (PCR) - Final 01/28/23 19:30 Nasal Secretion SARS-CoV-2 & FLU Antigen (Rapid) - Final Cardiology Labs/Tests 01/28/23 17:30: WBC 15.5 H, RBC 2.37 L, Hgb 8.9 L, Hct 26.7 L, MCV 112.7 H, MCH 37.6 H, MCHC 33.3, Plt Count 402, MPV 10.0, Immature Gran % (Auto) 0.600, Neut % (Auto) 76.0 H, Lymph % (Auto) 10.9 L, [place] % (Auto) 7.3, Eos % (Auto) 4.7, Baso % (Auto) 0.5, Absolute Neuts (auto) 11.8 H, Nucleated RBC % 0.9, Sodium 135 L, Potassium 4.0, Chloride 100, Carbon Dioxide 24.0, Anion Gap 11, BUN 50 H, Creatinine 1.77 H, Est GFR (MDRD) Af Amer 35 L, Est GFR (MDRD) Non-Af 29 L, BUN/ Creatinine Ratio 28.2 H, Glucose 146 H, Calcium 9.6, Iron 50, TIBC 202 L, Iron Saturation 24.8, Ferritin 296 H, B-Natriuretic Peptide 454.1 H 01/28/23 23:55: Urine Color Yellow, Urine Clarity Clear, Urine pH 6.0, Ur Specific [place] 1.010, Urine Protein Negative, Urine Glucose (UA) Normal, Urine Ketones Negative, Urine Occult Blood Negative, Urine Nitrite Negative, Urine Bilirubin Negative, Urine Urobilinogen Normal, Ur Leukocyte Esterase 100 H, Urine RBC 0 SEEN, Urine WBC 10-25 SEEN 01/29/23 03:07: WBC 13.0 H, RBC 2.37 L, Hgb 8.7 L, Hct 25.9 L, MCV 109.3 H, MCH 36.7 H, MCHC 33.6, Plt Count 394, MPV 9.5, Immature Gran % (Auto) 0.800, Neut % (Auto) 75.4 H, Lymph % (Auto) 12.1 L, [place] % (Auto) 7.1, Eos % (Auto) 4.3, Baso % (Auto) 0.3, Absolute Neuts (auto) 9.8 H, Nucleated RBC % 0.8, Sodium 139, Potassium 3.4 L, Chloride 101, Carbon Dioxide 27.0, Anion Gap 11, BUN 47 H, Creatinine 1.40 H, Est GFR (MDRD) Af Amer 46 L, Est GFR (MDRD) Non-Af 38 L, BUN/Creatinine Ratio 33.6 H, Glucose 143 H, Calcium 9.1, Phosphorus 3.6, Magnesium 1.7, Total Bilirubin 0.60 Radiography Diagnostic Testing: Radiology Impression Chest X-Ray 01/28/23 19:15 IMPRESSION: Probable chronic bibasilar interstitial thickening with interval progression since prior study. Cannot exclude superimposed acute inflammatory changes Electronically Signed: Dhruv Rodriguez MD at 19:36 EST ,
--- NOTE | 2023-01-29 11:30 | CASEMGMT ---
RN CM Face to Face with patient for initial transition planning/care coordination assessment. RN CM introduced self and role at [facility]. Patient lying in bed, alert and oriented. Patient willing to participate in assessment and is able to answer all questions appropriately. Care providers, pharmacy, and demographics verified. Patient wishes to discharge home, denies need for home health at this time, will monitor progress with therapy. Patient states she has no further needs or concerns at this time. CM to follow for discharge planning needs that may arise. PCP: Alfredo Specialists: Arely, Podiatry; Ulises, Income Tax Preparer; Issac cellular phone repairer Preferred Pharmacy: [facility] Insurance: [employer] Prescription Benefit: yes Living Will/HPOA: none LNOK: son, daughter Living Arrangements: Patient lives alone in a single story home with no steps to enter. Patient is independent at home. Transportation: self, children. DME/HHC: Patient has cane, walker, grab bars, and glucometer at home. No previous HHC or SNF Disposition Plan: Patient to discharge home with family support and follow-up plans in place. Will monitor progress with therapy. Tatyana YAN, RN, CM
[2023-01-29] MEDS: Insulin Lispro 100 UNIT/ML INSULN.PEN SC ×2 (11:53→17:04)
[2023-01-29 12:07] LABS: Bedside Glucose 188 mg/dL (74-106)
--- NOTE | 2023-01-29 15:13 | PCM.PN.HOSP ---
Reason for Visit Reason for Visit: Diagnoses Anemia, unspecified (01/28/23) Elevated white blood cell count, unspecified (01/28/23) Acute on chronic diastolic (congestive) heart failure (01/28/23) Acute kidney failure, unspecified (01/28/23) Other forms of dyspnea (01/28/23) Other fatigue (01/28/23) Abnormal electrocardiogram [ECG] [EKG] (01/28/23) Subjective Subjective Patient admitted yesterday evening for worsening dyspnea on exertion. No acute events overnight. Patient seen at bedside this morning. Laying comfortably in bed, conversing normally, no acute distress. Patient denies any shortness of breath at rest. Has PureWick in place, states she had very good urine output overnight with IV Lasix. Has not getting out of bed yet this morning. States she continues to feel volume overloaded in her legs this morning. Denies any chest pain or cough. Denies any other acute pain or discomfort currently. No other acute concerns at this time. Objective Data Objective Data Vital Signs: Vital Signs Temp Pulse Resp BP Pulse Ox O2 Del Method O2 Flow Rate 98.3 F 73 16 109/49 L 95 Nasal Cannula 2 01/29/23 14:52 01/29/23 14:52 01/29/23 14:52 01/29/23 14:52 01/29/23 14:52 01/29/23 14:52 01/29/23 14:52 Oxygen Flow Rate (L/min) 2 Oxygen Delivery Method Nasal Cannula Weight: 70 kg Body Mass Index (BMI) 31.1 Intake & Output: Intake and Output for Last 24 Hours 01/27/23 01/28/23 01/29/23 23:59 23:59 23:59 Intake Total 120 / 120 Output Total 1800 / 1800 Balance -1680 / -1680 Lab / Micro Data 01/29/23 03:07 01/29/23 03:07 Labs: Laboratory Results - last 24 hr 01/28/23 17:30: WBC 15.5 H, RBC 2.37 L, Hgb 8.9 L, Hct 26.7 L, MCV 112.7 H, MCH 37.6 H, MCHC 33.3, RDW Std Deviation 64.5 H, RDW Coeff of Maria Del Rosario 16.0 H, Plt Count 402, MPV 10.0, Immature Gran % (Auto) 0.600, Neut % (Auto) 76.0 H, Lymph % (Auto) 10.9 L, [place] % (Auto) 7.3, Eos % (Auto) 4.7, Baso % (Auto) 0.5, Absolute Neuts (auto) 11.8 H, Absolute Lymphs (auto) 1.68, Nucleated RBC % 0.9, Sodium 135 L, Potassium 4.0, Chloride 100, Carbon Dioxide 24.0, Anion Gap 11, BUN 50 H, Creatinine 1.77 H, Estim Creat Clear Calc 25.49, Est GFR (MDRD) Af Amer 35 L, Est GFR (MDRD) Non-Af 29 L, BUN/Creatinine Ratio 28.2 H, Glucose 146 H, Calcium 9.6, Iron 50, TIBC 202 L, Iron Saturation 24.8, Ferritin 296 H, Troponin I High Sens 11, C-React Prot Ext Range 56.40 H, B-Natriuretic Peptide 454.1 H 01/28/23 22:39: POC Glucose 153 H 01/28/23 22:48: ESR 34 H, Troponin I High Sens 13 01/28/23 23:55: Urine Color Yellow, Urine Clarity Clear, Urine pH 6.0, Ur Specific [place] 1.010, Urine Protein Negative, Urine Glucose (UA) Normal, Urine Ketones Negative, Urine Occult Blood Negative, Urine Nitrite Negative, Urine Bilirubin Negative, Urine Urobilinogen Normal, Ur Leukocyte Esterase 100 H, Urine RBC 0 SEEN, Urine WBC 10-25 SEEN, Ur Squamous Epith Cells 0 SEEN, Urine Bacteria 2+, Urine Mucus 0 SEEN 01/29/23 03:07: WBC 13.0 H, RBC 2.37 L, Hgb 8.7 L, Hct 25.9 L, MCV 109.3 H, MCH 36.7 H, MCHC 33.6, RDW Std Deviation 60.9 H, RDW Coeff of Maria Del Rosario 15.6 H, Plt Count 394, MPV 9.5, Immature Gran % (Auto) 0.800, Neut % (Auto) 75.4 H, Lymph % (Auto) 12.1 L, [place] % (Auto) 7.1, Eos % (Auto) 4.3, Baso % (Auto) 0.3, Absolute Neuts (auto) 9.8 H, Absolute Lymphs (auto) 1.57, Nucleated RBC % 0.8, Sodium 139, Potassium 3.4 L, Chloride 101, Carbon Dioxide 27.0, Anion Gap 11, BUN 47 H, Creatinine 1.40 H, Estim Creat Clear Calc 31.88, Est GFR (MDRD) Af Amer 46 L, Est GFR (MDRD) Non-Af 38 L, BUN/Creatinine Ratio 33.6 H, Glucose 143 H, Calcium 9.1, Phosphorus 3.6, Magnesium 1.7, Total Bilirubin 0.60, AST 5 L, ALT 10 L, Alkaline Phosphatase 81, Troponin I High Sens 14, Total Protein 6.5, Albumin 3.1 L, Globulin 3.4, Albumin/Globulin Ratio 0.9, TSH 1.19 01/29/23 05:37: POC Glucose 106 01/29/23 11:49: POC Glucose 188 H Micro: Microbiology 01/28/23 19:30 Mucosa - Nose Respiratory Panel (PCR) - Final 01/28/23 19:30 Nasal Secretion SARS-CoV-2 & FLU Antigen (Rapid) - Final Radiography Diagnostic Testing: Radiology Impression Chest X-Ray 01/28/23 19:15 IMPRESSION: Probable chronic bibasilar interstitial thickening with interval progression since prior study. Cannot exclude superimposed acute inflammatory changes Electronically Signed: Dhruv Rodriguez MD at 19:36 EST Reading Location ID and State: [facility] / [place] Tel , Service support , Physical Exam Const alert, oriented x3 and no apparent distress Constitutional Narrative: Pleasant elderly female, obese, chronically ill-appearing, laying comfortably in bed, conversing normally, no acute distress. Satting well on room air, no increased work of breathing noted. General Appearance: cooperative and comfortable HEENT normocephalic, head/scalp atraumatic, hearing grossly normal bilaterally, nasal mucous membranes and turbinates normal and moist oral mucous membranes Eyes PERRL, EOMs intact bilaterally and conjunctivae normal Neck full ROM, no lymphadenopathy and supple Lymph Lymphatic: no lymphadenopathy noted Chest inspection of chest normal Resp normal respiratory effort and no use of accessory muscles Resp Narrative: Scattered crackles more notable at lung bases bilaterally. No wheezing noted. Cardio regular rate, regular rhythm, no murmurs and peripheral pulses 2+ throughout GI normal to inspection, nondistended, normoactive bowel sounds, soft to palpation, non-tender and non-distended Back/Spine normal ROM Extremity normal to inspection and full ROM Extremity Narrative: Trace bilateral lower extremity edema noted. Skin no rashes or lesions noted Psych mental status grossly normal Assessment & Plan Assessment/Plan (1) ROBINS (dyspnea on exertion): PLAN: Plan Patient is an 87-year-old female who presented to [facility] ED on 01/28/2023 with worsening dyspnea on exertion. 1. Dyspnea on exertion; EKG changes; Acute on chronic diastolic heart failure Patient on admission reported progressively worsening dyspnea on exertion over the past 2 years. Etiology unclear currently, could be component of acute on chronic diastolic heart failure versus acute on chronic anemia versus anginal equivalent. Troponins negative, no overt chest pain since admission. However does have T wave inversions in V3-V6 that appear new in comparison to EKG from 2019. BNP is also elevated. ? Cardiology following. Echo pending. Started on IV Lasix on admission with good urine output, continue for now. Continue home Plavix, Norvasc, Coreg, isosorbide, pravastatin, aspirin. Cardiology noting that anemia could be causing symptoms, recommended further work-up as needed. Not a good catheterization candidate at this time due to kidney dysfunction; cardiology considering stress test pending echo results. 2. JOHN on CKD stage IIIb, improved Creatinine 1.77 on admit, baseline creatinine around 1.3-1.4. Suspect mild JOHN secondary to slight cardiorenal syndrome. Creatinine improved to 1.40 on 01/29. ? Continue IV Lasix as noted above. Monitor BMP daily. 5. Leukocytosis WBC count 15 on admit. Low concern for active infection, likely secondary to acute stress response. Improved to 13.0 on 01/29. ? Monitor CBC daily. Hold on antibiotics at this time. 6. Acute on chronic anemia Baseline hemoglobin appears to be around 10-11, hemoglobin 8.9 on admission, MCV 110. Unclear etiology, no signs of active bleeding, patient reports no dark or bloody stools. Iron studies normal. Vitamin B12 and folate pending. ? Hemoglobin 8.7 on 01/29. Monitor CBC daily. Follow-up pending studies. 7. CAD, hypertension, hyperlipidemia Known triple-vessel disease with first cardiac catheterization done in 2011 with postprocedure complication of pericardial effusion that required pericardial window. Repeat cardiac catheterization in 2019 which demonstrated preserved ejection fraction, proximal LAD luminal irregularities, distal LAD with 80% stenosis, circumflex with mid vessel 75% stenotic lesion and the obtuse marginal had a 95% stenosis. The right coronary artery which was previously stented and almost the entire vessel had 40 to 50% rein-stent stenosis. ? Continue home statin, aspirin, Plavix, oral antihypertensives. Cardiology following as above. Chronic medical conditions: ? Type 2 diabetes: Holding home oral agents, sliding scale insulin while inpatient. ? Glaucoma: Continue home eyedrops. ? Hypothyroidism: Continue home Synthroid. ? Vitamin D deficiency: Restart vitamin D supplement at discharge ? Obesity: BMI 31 on admit, encouraged lifestyle modifications. ? GERD: Continue home PPI. DVT prophylaxis: Heparin subcu CODE STATUS: DNR CCA, okay to intubate Expected disposition: Home, TBD Total clinical time spent by myself addressing the patient's medical issues, reviewing all the data, and collaborating with patient's care team: 35 minutes. Charges/Coding Visit Charges Inpatient E&M: 44473 Subs Hosp L2
[2023-01-29 16:55] LABS: Vitamin B12 > 2000 pg/mL (211-911)
[2023-01-29 17:29] LABS: Bedside Glucose 160 mg/dL (74-106)
[2023-01-29] MEDS: Pravastatin 80 MG Tablet PO (21:32)
[2023-01-29] MEDS: Levothyroxine 75 MCG Tablet PO (21:33)
[2023-01-29] MEDS: Latanoprost 0.005% 1 Bottle 1 DRP OPHTHALMIC (21:36)
[2023-01-30] VITALS (8 sets, daily range): BP systolic 117–134; BP diastolic 54–65; PULSE 80–84; RESP 14–16; TEMP 36.2–37.1; O2SAT 90–99; BMI 31.6
[2023-01-30] MEDS: Acetaminophen 325 MG Tablet 650 MG PO (05:13)
[2023-01-30] MEDS: Heparin Injection (Vial) 5,000 UNIT/ML VIAL 5000 UNIT SC ×3 (06:12→21:39)
[2023-01-30 07:37] LABS: Bedside Glucose 129 mg/dL (74-106)
[2023-01-30] MEDS: Aspirin E.C. 81 MG Tablet PO (08:30)
[2023-01-30] MEDS: Carvedilol 25 MG Tablet PO ×2 (08:30→16:40)
[2023-01-30] MEDS: Isosorbide Mononitrate 60 MG Tablet PO (08:31)
[2023-01-30] MEDS: Multivitamin (Healthy Eyes) Capsule 1 CAP PO ×2 (08:31→21:40)
[2023-01-30] MEDS: Citalopram 20 MG Tablet PO (08:31)
[2023-01-30] MEDS: Folic Acid 1 MG Tablet PO ×2 (08:31→16:40)
[2023-01-30] MEDS: Clopidogrel Bisulfate 75 MG Tablet PO (08:32)
[2023-01-30] MEDS: Pantoprazole Sodium 40 MG Tablet PO (08:32)
[2023-01-30] MEDS: amLODIPine 5 MG Tablet PO (08:32)
[2023-01-30] MEDS: Furosemide 40 MG/4 ML Vial IV (08:32)
[2023-01-30] MEDS: LINAGLIPTIN 5 MG TABLET PO (08:33)
[2023-01-30] MEDS: 0.9% Saline Lock 10 ML Syringe IV (08:33)
[2023-01-30 08:49] LABS: Hematocrit 28.5 % (37-47); Hemoglobin 9.3 g/dL (12.0-15.0); Mean Corp Hgb Conc 32.6 g/dL (32-36); Mean Corpuscular Hgb 36.6 pg (27.0-32.0); Mean Corpuscular Volume 112.2 fL (81-99); Mean Platelet Vol. 9.5 fl (6.2-12.0); Platelet Count 446 K/mm3 (150-450); RBC Distribution Width CV 15.6 % (11.6-14.6); RBC Distribution Width SD 64.4 fl (35.1-43.9); Red Blood Count 2.54 M/mm3 (4.2-5.4)
[2023-01-30 09:03] LABS: Anion Gap 10 (5-15); BUN 50 mg/dL (7-18); BUN/Creat Ratio 32.7 RATIO (10-20); Calcium,Total 10.1 mg/dL (8.5-10.1); Chloride 99 mmol/L (98-107); Creatinine, Serum 1.53 mg/dL (0.55-1.02); EST Glomerular Filtration Rate 34 mL/min (>60); Est Glom Filt Rate - Afr Amer 41 mL/min (>60); Estimated Creatinine Clearance 29.62 ml/min; Glucose 146 mg/dL (74-106); Potassium 3.2 mmol/L (3.5-5.1); Sodium Level 136 mmol/L (136-145)
[2023-01-30] MEDS: Insulin Lispro 100 UNIT/ML INSULN.PEN SC ×2 (11:15→16:40)
[2023-01-30 11:41] LABS: Bedside Glucose 228 mg/dL (74-106)
[2023-01-30] MEDS: Potassium Chloride Oral Soln 20 MEQ/15 ML UDC 40 MEQ PO (14:12)
--- NOTE | 2023-01-30 14:20 | PCM.PN.HOSP ---
Reason for Visit Reason for Visit: Diagnoses Anemia, unspecified (01/28/23) Elevated white blood cell count, unspecified (01/28/23) Pure hypercholesterolemia (01/28/23) Pure hypercholesterolemia, unspecified (01/28/23) Essential (primary) hypertension (01/28/23) Acute on chronic diastolic (congestive) heart failure (01/28/23) Acute kidney failure, unspecified (01/28/23) Chronic kidney disease, unspecified (01/28/23) Other forms of dyspnea (01/28/23) Other fatigue (01/28/23) Abnormal electrocardiogram [ECG] [EKG] (01/28/23) Presence of coronary angioplasty implant and graft (01/28/23) Coronary angioplasty status (01/28/23) Subjective Subjective No acute events overnight. Patient seen at bedside this morning. Sitting comfortably in bedside chair, conversing normally, no acute distress. Patient states that her dyspnea on exertion has significantly improved from admission. States she ambulated in the hallway yesterday with physical therapy and went close to 100 feet without any significant shortness of breath. Has had no dyspnea on exertion with walking around the room and going to the bathroom. Has continued to have good urine output. She denies any fevers or chills, chest pain, shortness of breath. No other acute pain or discomforts morning. No other acute concerns. Objective Data Objective Data Vital Signs: Vital Signs Temp Pulse Resp BP Pulse Ox O2 Del Method O2 Flow Rate 97.8 F 82 14 117/65 93 Room Air 2 01/30/23 08:30 01/30/23 08:30 01/30/23 08:30 01/30/23 08:30 01/30/23 08:30 01/30/23 08:30 01/30/23 08:24 Oxygen Flow Rate (L/min) 2 Oxygen Delivery Method Room Air Weight: 71.1 kg Body Mass Index (BMI) 31.6 Intake & Output: Intake and Output for Last 24 Hours 01/28/23 01/29/23 01/30/23 23:59 23:59 23:59 Intake Total 1040 / 1040 120 / 120 Output Total 3350 / 3350 300 / 300 Balance -2310 / -2310 -180 / -180 Lab / Micro Data 01/30/23 08:15 01/30/23 08:15 Labs: Laboratory Results - last 24 hr 01/29/23 16:09: Vitamin B12 > 2000 H, Folate 99.40 H 01/29/23 16:59: POC Glucose 160 H 01/30/23 06:59: POC Glucose 129 H 01/30/23 08:15: WBC 11.0, RBC 2.54 L, Hgb 9.3 L, Hct 28.5 L, MCV 112.2 H, MCH 36.6 H, MCHC 32.6, RDW Std Deviation 64.4 H, RDW Coeff of Maria Del Rosario 15.6 H, Plt Count 446, MPV 9.5, Sodium 136, Potassium 3.2 L, Chloride 99, Carbon Dioxide 27.0, Anion Gap 10, BUN 50 H, Creatinine 1.53 H, Estim Creat Clear Calc 29.62, Est GFR (MDRD) Af Amer 41 L, Est GFR (MDRD) Non-Af 34 L, BUN/Creatinine Ratio 32.7 H, Glucose 146 H, Calcium 10.1 01/30/23 11:14: POC Glucose 228 H Micro: Microbiology 01/28/23 23:44 Urine, Clean Catch Urine Culture - Preliminary Presumptive E. coli 01/28/23 19:30 Mucosa - Nose Respiratory Panel (PCR) - Final 01/28/23 19:30 Nasal Secretion SARS-CoV-2 & FLU Antigen (Rapid) - Final Radiography Diagnostic Testing: Radiology Impression Echocardiogram 01/29/23 05:55 Interpretation Summary The estimated ejection fraction is 55-60 %. LV systolic function Mild MR Mild TR No significant change from previous echocardiogram Ordering Physician: Joceline Montgomery Referring Physician: Oj Fuentes Performed By: Brisa Walter, ARMAND, RVT Physical Exam Const alert, oriented x3 and no apparent distress Constitutional Narrative: Pleasant elderly female, obese, chronically ill-appearing, laying comfortably in bed, conversing normally, no acute distress. Satting well on room air, no increased work of breathing noted. General Appearance: cooperative and comfortable HEENT normocephalic, head/scalp atraumatic, hearing grossly normal bilaterally, nasal mucous membranes and turbinates normal and moist oral mucous membranes Eyes PERRL, EOMs intact bilaterally and conjunctivae normal Neck full ROM, no lymphadenopathy and supple Lymph Lymphatic: no lymphadenopathy noted Chest inspection of chest normal Resp normal respiratory effort and no use of accessory muscles Resp Narrative: Scattered crackles more notable at lung bases bilaterally. No wheezing noted. Cardio regular rate, regular rhythm, no murmurs and peripheral pulses 2+ throughout GI normal to inspection, nondistended, normoactive bowel sounds, soft to palpation, non-tender and non-distended Back/Spine normal ROM Extremity normal to inspection and full ROM Extremity Narrative: Trace bilateral lower extremity edema noted. Skin no rashes or lesions noted Psych mental status grossly normal Assessment & Plan Assessment/Plan (1) ROBINS (dyspnea on exertion): PLAN: Plan Patient is an 87-year-old female who presented to [facility] ED on 01/28/2023 with worsening dyspnea on exertion. 1. Dyspnea on exertion; EKG changes; Acute on chronic diastolic heart failure Patient on admission reported progressively worsening dyspnea on exertion over the past 2 years. Etiology unclear currently, could be component of acute on chronic diastolic heart failure versus acute on chronic anemia versus anginal equivalent. Troponins negative, no overt chest pain since admission. However does have T wave inversions in V3-V6 that appear new in comparison to EKG from 2019. BNP is also elevated. Echo 01/29 showed EF 55 to 60%, mild MR, mild TR, no significant change from previous echo from 07/2022. ? Cardiology following. With normal echo, suspect patient will not need stress testing during this admission. Remains on IV Lasix, appears to be approaching euvolemia, will de-escalate to p.o. Lasix 40 mg daily tomorrow and plan to discharge patient home on this dosage. Continue home Plavix, Norvasc, Coreg, isosorbide, pravastatin, aspirin. 2. JOHN on CKD stage IIIb, improved Creatinine 1.77 on admit, baseline creatinine around 1.3-1.4. Suspect mild JOHN secondary to slight cardiorenal syndrome. Creatinine improved to 1.40 on 01/29. ? We will transition to p.o. Lasix tomorrow morning as noted above. Monitor BMP daily. 5. Leukocytosis, improved WBC count 15 on admit. Low concern for active infection, likely secondary to acute stress response. ? Improved to WBC count 11 on 01/30. No need for antibiotics. 6. Acute on chronic anemia, stable Baseline hemoglobin appears to be around 10-11, hemoglobin 8.9 on admission, MCV 110. Unclear etiology, no signs of active bleeding, patient reports no dark or bloody stools. Iron studies normal. Vitamin B12 > 2000, folate 99 (above normal range). ? Hemoglobin 9.3 on 01/30. Suspect this may be patient's new baseline hemoglobin in setting of CKD. No need for further monitoring at this time. 7. CAD, hypertension, hyperlipidemia Known triple-vessel disease with first cardiac catheterization done in 2011 with postprocedure complication of pericardial effusion that required pericardial window. Repeat cardiac catheterization in 2019 which demonstrated preserved ejection fraction, proximal LAD luminal irregularities, distal LAD with 80% stenosis, circumflex with mid vessel 75% stenotic lesion and the obtuse marginal had a 95% stenosis. The right coronary artery which was previously stented and almost the entire vessel had 40 to 50% rein-stent stenosis. ? Continue home statin, aspirin, Plavix, oral antihypertensives. Cardiology following as above. Chronic medical conditions: ? Type 2 diabetes: Holding home oral agents, sliding scale insulin while inpatient. ? Glaucoma: Continue home eyedrops. ? Hypothyroidism: Continue home Synthroid. ? Vitamin D deficiency: Restart vitamin D supplement at discharge ? Obesity: BMI 31 on admit, encouraged lifestyle modifications. ? GERD: Continue home PPI. DVT prophylaxis: Heparin subcu CODE STATUS: DNR CCA, okay to intubate Expected disposition: Home, 1-2 days Total clinical time spent by myself addressing the patient's medical issues, reviewing all the data, and collaborating with patient's care team: 35 minutes. Charges/Coding Visit Charges Inpatient E&M: 24712 Subs Hosp L2
[2023-01-30 17:16] LABS: Bedside Glucose 234 mg/dL (74-106)
[2023-01-30] MEDS: Latanoprost 0.005% 1 Bottle 1 DRP OPHTHALMIC (21:40)
[2023-01-30] MEDS: Pravastatin 80 MG Tablet PO (21:40)
[2023-01-30] MEDS: Levothyroxine 75 MCG Tablet PO (21:41)
[2023-01-30 22:46] LABS: Bedside Glucose 207 mg/dL (74-106)
[2023-01-31 03:06] VITALS: BP 137/62; PULSE 70; RESP 16; TEMP 37; O2SAT 100
[2023-01-31 03:50] VITALS: BMI 31.8
[2023-01-31] MEDS: Heparin Injection (Vial) 5,000 UNIT/ML VIAL 5000 UNIT SC (06:18)
[2023-01-31] MEDS: Insulin Lispro 100 UNIT/ML INSULN.PEN SC ×2 (06:25→11:41)
[2023-01-31 06:58] LABS: Bedside Glucose 177 mg/dL (74-106)
[2023-01-31 07:36] VITALS: O2SAT 97
[2023-01-31 07:49] LABS: Anion Gap 8 (5-15); BUN 61 mg/dL (7-18); BUN/Creat Ratio 39.1 RATIO (10-20); Calcium,Total 9.5 mg/dL (8.5-10.1); Chloride 99 mmol/L (98-107); Creatinine, Serum 1.56 mg/dL (0.55-1.02); EST Glomerular Filtration Rate 33 mL/min (>60); Est Glom Filt Rate - Afr Amer 40 mL/min (>60); Estimated Creatinine Clearance 29.22 ml/min; Glucose 179 mg/dL (74-106); Potassium 3.6 mmol/L (3.5-5.1); Sodium Level 134 mmol/L (136-145)
[2023-01-31] MEDS: Folic Acid 1 MG Tablet PO (10:29)
[2023-01-31] MEDS: Citalopram 20 MG Tablet PO (10:30)
[2023-01-31] MEDS: Clopidogrel Bisulfate 75 MG Tablet PO (10:30)
[2023-01-31] MEDS: Multivitamin (Healthy Eyes) Capsule 1 CAP PO (10:30)
[2023-01-31] MEDS: Pantoprazole Sodium 40 MG Tablet PO (10:31)
[2023-01-31] MEDS: LINAGLIPTIN 5 MG TABLET PO (10:31)
[2023-01-31] MEDS: Aspirin E.C. 81 MG Tablet PO (10:31)
[2023-01-31 10:34] VITALS: BP 100/70; PULSE 74; RESP 16; TEMP 36.5; O2SAT 96
[2023-01-31 11:00] VITALS: O2SAT 92
[2023-01-31 11:29] VITALS: BP 124/54
[2023-01-31] MEDS: amLODIPine 5 MG Tablet PO (11:39)
[2023-01-31] MEDS: Carvedilol 25 MG Tablet PO (11:39)
[2023-01-31] MEDS: Isosorbide Mononitrate 60 MG Tablet PO (11:39)
[2023-01-31] MEDS: Furosemide 40 MG Tablet PO (11:44)
--- NOTE | 2023-01-31 12:48 | DCINST_ITS ---
Discharge Instructions Diet Discharge Diet: No restrictions Activity Discharge Activity: No Restrictions Weight Bearing Status: Full weight bearing Follow Up Care Please Follow Up With: Koko Fuentes MD When: 1 to 2 weeks Test Results: Test results from this visit will be discussed in further detail at your follow- up appointment, if applicable. Pending Tests Upon Discharge: None Discharge Plan Admission Admit Date/Time: 01/28/23 22:21 Primary Reason for Your Visit: Dyspnea on exertion Attending Provider: Kyle Culver Primary Care Provider: Koko Fuentes Consulting Providers: Joceline Montgomery; Shahnaz Reeves Instructions Additional Instructions / Restrictions: Take the following medications as prescribed for your volume overload: ? Lasix 40 mg daily ? Potassium supplement 10 mEq daily Continue all other home medications as previously prescribed. Follow-up with your primary care doctor in the next 1 to 2 weeks. Discharge Orders/Prescriptions Prescriptions: New furosemide 40 mg Tablet 40 mg PO DAILY 30 Days Qty: 30 0RF potassium chloride 10 mEq capsule, extended release 10 meq PO DAILY 30 Days Qty: 30 0RF Continued Januvia 50 mg tablet 50 mg PO DAILY glipizide [Glucotrol] 5 mg tablet 5 mg PO BID Patient Comments: 1.5 tablets in morning and 1 tablet in evening nitroglycerin 0.4 mg tablet, sublingual 0.4 mg SUBLINGUAL Q5-15M PRN (Reason: chest pain) Qty: 25 3RF amlodipine [Norvasc] 5 mg tablet 5 mg PO DAILY Qty: 90 3RF pantoprazole 40 mg tablet,delayed release (DR/EC) 40 mg PO DAILY latanoprost [Xalatan] 0.005 % drops 1 drp ophthalmic (eye) .daily qhs isosorbide mononitrate 30 mg tablet extended release 24 hr 60 mg PO DAILY PreserVision AREDS 4,296 mcg-226 mg-90 mg capsule 1 cap PO BID carvedilol 25 MG tablet 25 mg PO BID clopidogrel 75 MG tablet 75 mg PO DAILY aspirin 81 MG tablet 81 mg PO DAILY@0800 levothyroxine 75 MCG tablet 75 mcg PO QHS pravastatin 80 MG tablet 80 mg PO DAILY cranberry 500 MG capsule 500 mg PO DAILY cholecalciferol (vitamin D3) 1,000 UNIT tablet 1,000 unit PO DAILY citalopram 20 mg tablet 20 mg PO DAILY folic acid 1 mg tablet 1 mg PO BID cyanocobalamin (vitamin B-12) 1,000 mcg capsule 1,000 mcg PO DAILY Discontinued furosemide 20 MG tablet 20 mg PO DAILY Referrals / Follow Up: Koko Fuentes MD [Primary Care Provider] - Disposition Disposition (needs filled in before D/C Order can be placed): Home, Self Care
--- NOTE | 2023-01-31 12:53 | DS.PCM_ITS ---
Providers Date of Admission: 01/28/23 Date of Discharge: 01/31/23 Primary Care Physician: Dr. Koko Fuentes MD Consultations 01/28/23 22:33 Consult: Cardiology Routine Consulting Provider: Shahnaz Reeves Reason for Consult: ROBINS--> ? anginal eq with EKG changes EMERGENT Consult: No MD Notified: Yes Date Notified: 01/29/23 Time Notified: 08:05 Method of Notification: Verbal Reason For Visit: ROBINS/ACUTE DECOMPENSATED DIASTOLIC CHF Diagnosis Discharge Diagnosis (1) ROBINS (dyspnea on exertion): Status: Acute Code(s): R06.09 - Other forms of dyspnea Medications at Discharge Home Medications aspirin 81 mg tablet,delayed release 81 mg PO DAILY@0800 01/02/15 carvedilol 25 mg tablet 25 mg PO BID 01/02/15 cholecalciferol (vitamin D3) 25 mcg (1,000 unit) tablet 1,000 unit PO DAILY 01/02/15 clopidogrel 75 mg tablet 75 mg PO DAILY 01/02/15 cranberry 500 mg capsule 500 mg PO DAILY 01/02/15 levothyroxine 75 mcg tablet 75 mcg PO QHS 01/02/15 pravastatin 80 mg tablet 80 mg PO DAILY 01/02/15 sitagliptin phosphate 50 mg tablet (Januvia) 50 mg PO DAILY 08/22/18 glipizide 5 mg tablet (Glucotrol) 5 mg PO BID 08/24/18 nitroglycerin 0.4 mg sublingual tablet 0.4 mg sublingual Q5-15M PRN chest pain #25 tabs 12/07/18 amlodipine 5 mg tablet (Norvasc) 5 mg PO DAILY #90 tabs 03/30/19 citalopram 20 mg tablet 20 mg PO DAILY 08/22/19 folic acid 1 mg tablet 1 mg PO BID 08/22/19 latanoprost 0.005 % eye drops (Xalatan) 1 drp ophthalmic (eye) .daily qhs eye 04/04/21 pantoprazole 40 mg tablet,delayed release 40 mg PO DAILY 04/04/21 cyanocobalamin (vitamin B-12) 1,000 mcg capsule 1,000 mcg PO DAILY 05/21/22 isosorbide mononitrate 30 mg tablet,extended release 24 hr 60 mg PO DAILY 09/21/22 vitamins A,C,P-bejc-ddbaww 4,296 mcg-226 mg-90 mg capsule (PreserVision AREDS) 1 cap PO BID 09/21/22 furosemide 40 mg tablet 40 mg PO DAILY 30 days #30 tabs 01/31/23 potassium chloride 10 mEq capsule,extended release 10 meq PO DAILY 30 days #30 caps 01/31/23 Hospital Course Operations None Procedures EKG, Transthoracic echo and - (Chest x-ray) Summary of Care Provided Minutes Spent on Discharge: 35 Hospital Course: Patient is an 87-year-old female who presented to [facility] ED on 01/28/2023 with worsening dyspnea on exertion. Hospital course as noted be low. Dyspnea on exertion; Acute on chronic diastolic heart failure: Patient on admission reported progressively worsening dyspnea on exertion over the past 2 years. Etiology likely a component of acute on chronic diastolic heart failure versus acute on chronic anemia. Very low concern for ACS. Troponins negative, no overt chest pain during admission. Did have T wave inversions in V3-V6, suspected due to demand ischemia. BNP was elevated. Echo 01/29 showed EF 55 to 60%, mild MR, mild TR, no significant change from previous echo from 07/2022. ? Cardiology followed. Given normal echo, patient did not need stress testing to rule out ACS per cardiology. Patient had significant improvement of dyspnea on exertion with several days of IV Lasix 40 mg twice daily. De-escalated to p.o. Lasix 40 mg daily on day of discharge. Discharged on p.o. Lasix 40 mg daily with potassium supplement 10 mEq daily (notably was on p.o. Lasix 20 mg daily prior to admission). Continued home Plavix, Norvasc, Coreg, isosorbide, pravastatin, aspirin. JOHN on CKD stage IIIb, resolved: Creatinine 1.77 on admit, baseline creatinine around 1.3-1.4. Suspect mild JOHN secondary to slight cardiorenal syndrome. Creatinine improved to 1.40 on 01/29. ? Would recommend repeating BMP in 5 to 7 days to ensure stability of creatinine and potassium. Leukocytosis, resolved: WBC count 15 on admit. Low concern for active infection, likely secondary to acute stress response. Improved to WBC count 11 on 01/30. No need for antibiotics during admission. Acute on chronic anemia, stable: Baseline hemoglobin appears to be around 10-11, hemoglobin 8.9 on admission, MCV 110. No signs of active bleeding, patient reports no dark or bloody stools. Iron studies normal. Vitamin B12 > 2000, folate 99 (above normal range). Hemoglobin remained stable around 9 during admission. ? Suspect this may be patient's new baseline hemoglobin in setting of CKD. Monitor in outpatient setting. CAD, hypertension, hyperlipidemia: Known triple-vessel disease with first cardiac catheterization done in 2011 with postprocedure complication of pericardial effusion that required pericardial window. Repeat cardiac catheterization in 2019 which demonstrated preserved ejection fraction, proximal LAD luminal irregularities, distal LAD with 80% stenosis, circumflex with mid vessel 75% stenotic lesion and the obtuse marginal had a 95% stenosis. The right coronary artery which was previously stented and almost the entire vessel had 40 to 50% rein-stent stenosis. ? Continued home statin, aspirin, Plavix, oral antihypertensives per cardiology recommendations. Discharge diagnoses: ? Dyspnea on exertion, improved ? Acute hypoxia, resolved ? Acute on chronic diastolic heart failure ? JOHN on CKD stage IIIb, resolved ? Leukocytosis, resolved ? Acute on chronic anemia, stable ? CAD ? Hypertension ? Hyperlipidemia ? Type 2 diabetes ? Glaucoma ? Hypothyroidism ? Vitamin D deficiency ? Obesity ? GERD Total clinical time spent by myself addressing the patient's discharge needs: 35 minutes. Physical Exam Const alert, oriented x3 and no apparent distress Constitutional Narrative: Pleasant elderly female, obese, chronically ill-appearing, sitting comfortably in bedside chair, conversing normally, no acute distress. Satting well on room air, no increased work of breathing noted. General Appearance: cooperative and comfortable HEENT normocephalic, head/scalp atraumatic, hearing grossly normal bilaterally, nasal mucous membranes and turbinates normal and moist oral mucous membranes Eyes PERRL, EOMs intact bilaterally and conjunctivae normal Neck full ROM, no lymphadenopathy and supple Lymph Lymphatic: no lymphadenopathy noted Chest inspection of chest normal Resp normal respiratory effort and no use of accessory muscles Resp Narrative: Satting well on room air, no increased work of breathing noted. Good air movement bilaterally, no wheezing or rhonchi noted. Cardio regular rate, regular rhythm, no murmurs and peripheral pulses 2+ throughout GI normal to inspection, nondistended, normoactive bowel sounds, soft to palpation, non-tender and non-distended Back/Spine normal ROM Extremity normal to inspection and full ROM Extremity Narrative: Trace bilateral lower extremity edema noted. Skin no rashes or lesions noted Psych mental status grossly normal Weight / BMI Weight Weight: 71.5 kg Body Mass Index (BMI) 31.8 ABG / Lab / Microbiology Data 01/30/23 08:15 01/31/23 07:00 Laboratory: Laboratory Results - last 24 hr 01/30/23 16:39: POC Glucose 234 H 01/30/23 21:46: POC Glucose 207 H 01/31/23 06:24: POC Glucose 177 H 01/31/23 07:00: Sodium 134 L, Potassium 3.6, Chloride 99, Carbon Dioxide 27.0, Anion Gap 8, BUN 61 H, Creatinine 1.56 H, Estim Creat Clear Calc 29.22, Est GFR (MDRD) Af Amer 40 L, Est GFR (MDRD) Non-Af 33 L, BUN/Creatinine Ratio 39.1 H, Glucose 179 H, Calcium 9.5 Microbiology: Microbiology 01/28/23 23:44 Urine, Clean Catch Urine Culture - Final Presumptive E. coli 01/28/23 22:56 Blood Culture (Wb) - Left Hand Blood Culture - Preliminary No growth in 48 hours. 01/28/23 22:48 Blood Culture (Wb) - Right Hand Blood Culture - Preliminary No growth in 48 hours. 01/28/23 19:30 Mucosa - Nose Respiratory Panel (PCR) - Final 01/28/23 19:30 Nasal Secretion SARS-CoV-2 & FLU Antigen (Rapid) - Final D/C Instructions Discharge Diet: No restrictions Weight Bearing Status: Full weight bearing Pending Tests Upon Discharge: None Please Follow Up With: Koko Fuentes MD When: 1 to 2 weeks Meaningful Use Info Meaningful Use Diagnoses (Choose all that apply): None applicable Discharge Plan Admission Admit Date/Time: 01/28/23 22:21 Primary Reason for Your Visit: Dyspnea on exertion Attending Provider: Kyle Culver Primary Care Provider: Koko Fuentes Consulting Providers: Joceline Montgomery; Shahnaz Reeves Instructions Additional Instructions / Restrictions: Take the following medications as prescribed for your volume overload: ? Lasix 40 mg daily ? Potassium supplement 10 mEq daily Continue all other home medications as previously prescribed. Follow-up with your primary care doctor in the next 1 to 2 weeks. Discharge Orders/Prescriptions Prescriptions: New furosemide 40 mg Tablet 40 mg PO DAILY 30 Days Qty: 30 0RF potassium chloride 10 mEq capsule, extended release 10 meq PO DAILY 30 Days Qty: 30 0RF Continued Januvia 50 mg tablet 50 mg PO DAILY glipizide [Glucotrol] 5 mg tablet 5 mg PO BID Patient Comments: 1.5 tablets in morning and 1 tablet in evening nitroglycerin 0.4 mg tablet, sublingual 0.4 mg SUBLINGUAL Q5-15M PRN (Reason: chest pain) Qty: 25 3RF amlodipine [Norvasc] 5 mg tablet 5 mg PO DAILY Qty: 90 3RF pantoprazole 40 mg tablet,delayed release (DR/EC) 40 mg PO DAILY latanoprost [Xalatan] 0.005 % drops 1 drp ophthalmic (eye) .daily qhs isosorbide mononitrate 30 mg tablet extended release 24 hr 60 mg PO DAILY PreserVision AREDS 4,296 mcg-226 mg-90 mg capsule 1 cap PO BID carvedilol 25 MG tablet 25 mg PO BID clopidogrel 75 MG tablet 75 mg PO DAILY aspirin 81 MG tablet 81 mg PO DAILY@0800 levothyroxine 75 MCG tablet 75 mcg PO QHS pravastatin 80 MG tablet 80 mg PO DAILY cranberry 500 MG capsule 500 mg PO DAILY cholecalciferol (vitamin D3) 1,000 UNIT tablet 1,000 unit PO DAILY citalopram 20 mg tablet 20 mg PO DAILY folic acid 1 mg tablet 1 mg PO BID cyanocobalamin (vitamin B-12) 1,000 mcg capsule 1,000 mcg PO DAILY Discontinued furosemide 20 MG tablet 20 mg PO DAILY Referrals / Follow Up: Koko Fuentes MD [Primary Care Provider] - Disposition Disposition (needs filled in before D/C Order can be placed): Home, Self Care Charges/Coding Visit Charges Inpatient E&M: 99399 Disch Hosp >30min
[2023-01-31 13:34] LABS: Bedside Glucose 231 mg/dL (74-106)
== END 2023-01-31 14:09 | disposition home or self-care (01) | DRG 291 ==
LOC: ED 21:28 → PCU 22:51
PROVIDERS: Admitting Provider Internal Medicine; Emergency Provider Emergency Medicine; PCP Family Medicine; Visit Provider Hospitalist
DX: I13.0 Hypertensive heart and chronic kidney disease with heart failure and stage 1 through stage 4 chronic kidney disease, or unspecified chronic kidney disease (principal); I50.33 Acute on chronic diastolic (congestive) heart failure; N17.9 Acute kidney failure, unspecified; I24.89 Other forms of acute ischemic heart disease; D63.1 Anemia in chronic kidney disease; E11.22 Type 2 diabetes mellitus with diabetic chronic kidney disease; D72.829 Elevated white blood cell count, unspecified; N18.32 Chronic kidney disease, stage 3b; E03.9 Hypothyroidism, unspecified; I25.10 Atherosclerotic heart disease of native coronary artery without angina pectoris; K21.9 Gastro-esophageal reflux disease without esophagitis; E55.9 Vitamin D deficiency, unspecified; E78.00 Pure hypercholesterolemia, unspecified; E66.9 Obesity, unspecified; H40.9 Unspecified glaucoma; R09.02 Hypoxemia; Z68.31 Body mass index [BMI] 31.0-31.9, adult; Z66 Do not resuscitate; Z95.5 Presence of coronary angioplasty implant and graft; Z79.02 Long term (current) use of antithrombotics/antiplatelets; Z79.82 Long term (current) use of aspirin; Z79.84 Long term (current) use of oral hypoglycemic drugs; Z79.899 Other long term (current) drug therapy
CPT/HCPCS: 36415; 71045; 80048; 80053; 81001; 82607; 82728; 82746; 82962; 83540; 83550; 83735; 83880; 84100; 84443; 84484; 85025; 85027; 85652; 86140; 87040; 87086; 87088; 87186; 87428; 87633; 93005; 93306; 94668; 97162; 97166; 97530; 99283; A4216; J1940

== ENCOUNTER 2023-02-05 19:29 | Emergency (ER) | payer MEDICARE, OTHER, SELFPAY ==
[2018-09-23 13:08] VITALS: BMI 34.5
[2023-02-05 19:31] VITALS: BP 128/47; PULSE 75; RESP 18; TEMP 36.6; O2SAT 99
--- NOTE | 2023-02-05 20:14 | CT_ITS ---
We are attempting to reach an attending provider to discuss findings. An addendum with communication details will be sent when the communication is complete. STUDY: CT BRAIN WITHOUT CONTRAST REASON FOR EXAM: Female, 87 years old. trauma RADIATION DOSAGE (If Supplied By Facility): CTDIvol = ( 44.99 ) mGy, DLP = ( 1356.42 ) mGycm TECHNIQUE: Transaxial CT imaging of the brain was performed without administration of intravenous contrast material. Individualized dose optimization techniques were used for this CT. COMPARISON: No relevant priors. FINDINGS: Normal soft tissue structures. Normal calvarium. There is a small localized subdural hematoma along the left side of the falx cerebrum 3. It measures 8 mm in thickness but is not causing significant mass effect. It measures 3.3 cm front to back. Normal size ventricles and extra-axial spaces for the patient''s age. There are areas of decreased attenuation within the white matter tracts of the supratentorial brain, consistent with microvascular disease changes. There are bilateral lacunar infarcts of the basal ganglia and thalami. Normal brainstem. Normal cerebellum. There are no findings of an acute ischemic infarction. Normal visualized paranasal sinuses. CT/Brain/Head without Contrast IMPRESSION: Small subdural hematoma localized to the left side of the falx cerebri, 8 mm thickness, no mass effect. Diffuse chronic white matter disease. Electronically Signed: Sai Mack MD at 20:55 EST ,
--- NOTE | 2023-02-05 20:14 | CT_ITS ---
STUDY: CT CERVICAL SPINE WITHOUT CONTRAST REASON FOR EXAM: Female, 87 years old. trauma RADIATION DOSAGE (If Supplied By Facility): CTDIvol = ( 25.47 ) mGy, DLP = ( 1356.42 ) mGycm TECHNIQUE: High resolution transaxial imaging was performed without contrast material. Sagittal and coronal images were reconstructed. Individualized dose optimization techniques were used for this CT. COMPARISON: None FINDINGS: No definite acute fracture/dislocation. The cervical junction is intact. C1-C2 articulation is intact. Mild reversal of curvature. There is normal alignment. Facet joints are intact at all levels bilaterally. No jumped facets. There is multilevel spondyloarthropathy. Multilevel degenerative disc disease seen. Multilevel loss of disc height. Multilevel posterior marginal osteophytes and disc bulges. Multilevel neural foraminal narrowing. Multilevel narrowing of the spinal canal. Extreme carotid calcifications, otherwise paraspinal soft tissues and structures are unremarkable. CT/Spine Cervical without Contras IMPRESSION: There is no definite acute fracture/dislocation. Degenerative changes. Electronically Signed: Sai Mack MD at 20:58 EST ,
--- NOTE | 2023-02-05 20:34 | EX.ED.GENINJ ---
HPI History of Present Illness Chief Complaint: Fall Informant: patient and family Narrative Narrative: 87-year-old female on aspirin presenting to the emergency department following a fall. Patient was recently admitted for heart failure and discharged home. She states she lost her balance tonight fell striking her head on the couch and ground. She notes pain to the back of her head and neck. Family notes swelling and bruising to the dorsum of the right wrist. No reported loss of conscious. No vomiting. She notes some tenderness to the left posterior hip [facility] Medical History Atherosclerosis of coronary artery without angina pectoris Chronic kidney disease Essential (primary) hypertension Hyperlipidemia Hypothyroidism Obesity Pericardial effusion with cardiac tamponade Type 2 diabetes mellitus Home Medications aspirin 81 mg tablet,delayed release 81 mg PO DAILY@0800 01/02/15 [History Last Taken 09/23/18] carvedilol 25 mg tablet 25 mg PO BID 01/02/15 [History Last Taken 09/23/18] cholecalciferol (vitamin D3) 25 mcg (1,000 unit) tablet 1,000 unit PO DAILY 01/02/15 [History Last Taken Unknown] clopidogrel 75 mg tablet 75 mg PO DAILY 01/02/15 [History Last Taken 09/23/18] cranberry 500 mg capsule 500 mg PO DAILY 01/02/15 [History Last Taken Unknown] levothyroxine 75 mcg tablet 75 mcg PO QHS 01/02/15 [History Last Taken 09/23/18] pravastatin 80 mg tablet 80 mg PO DAILY 01/02/15 [History Last Taken Unknown] sitagliptin phosphate 50 mg tablet (Januvia) 50 mg PO DAILY 08/22/18 [History Last Taken Unknown] glipizide 5 mg tablet (Glucotrol) 5 mg PO BID 08/24/18 [History Last Taken Unknown] nitroglycerin 0.4 mg sublingual tablet 0.4 mg sublingual Q5-15M PRN chest pain #25 tabs 12/07/18 [Rx Last Taken Unknown] amlodipine 5 mg tablet (Norvasc) 5 mg PO DAILY #90 tabs 03/30/19 [Rx Last Taken Unknown] citalopram 20 mg tablet 20 mg PO DAILY 08/22/19 [History Last Taken Unknown] folic acid 1 mg tablet 1 mg PO BID 08/22/19 [History Last Taken Unknown] latanoprost 0.005 % eye drops (Xalatan) 1 drp ophthalmic (eye) .daily qhs eye 04/04/21 [History Last Taken Unknown] pantoprazole 40 mg tablet,delayed release 40 mg PO DAILY 04/04/21 [History Last Taken Unknown] cyanocobalamin (vitamin B-12) 1,000 mcg capsule 1,000 mcg PO DAILY 05/21/22 [History Last Taken Unknown] isosorbide mononitrate 30 mg tablet,extended release 24 hr 60 mg PO DAILY 09/21/22 [History Last Taken Unknown] vitamins A,C,U-gfow-ielsmc 4,296 mcg-226 mg-90 mg capsule (PreserVision AREDS) 1 cap PO BID 09/21/22 [History Last Taken Unknown] furosemide 40 mg tablet 40 mg PO DAILY 30 days #30 tabs 01/31/23 [Rx Last Taken Unknown] potassium chloride 10 mEq capsule,extended release 10 meq PO DAILY 30 days #30 caps 01/31/23 [Rx Last Taken Unknown] Allergy/AdvReac Type Severity Reaction Status Date / Time quinapril HCl [From Accupril] Allergy Other Verified 02/05/23 19:35 Sulfa (Sulfonamide Allergy Rash Verified 02/05/23 19:35 Antibiotics) Family History Other CAD (coronary artery disease) Diabetes Surgical History History of bladder suspension procedure History of carpal tunnel release History of coronary angioplasty (09/23/18) History of coronary artery stent placement (11/20/11) History of herniorrhaphy History of hysterectomy History of partial thyroidectomy Hx of cholecystectomy S/P pericardial window creation (11/20/11) Social History Smoking Status: Never smoker alcohol intake: never substance use type: does not use ROS ROS ED Constitutional Constitutional ED: Denies chills, fever(s) or weight loss Eyes Eyes: Denies change in vision or diplopia ENT ENT ED: Denies ear pain, rhinorrhea or sore throat Cardiovascular Cardiovascular: Denies chest pain, orthopnea, palpitations or racing heartbeat Respiratory/Chest Respiratory/Chest: Denies cough, dyspnea or orthopnea Gastrointestinal Gastrointestinal: Denies abdominal pain, diarrhea, nausea or vomiting Genitourinary Genitourinary ED: Denies dysuria, hematuria or urinary frequency Musculoskeletal Musculoskeletal: Reports neck pain and other Details: See history of present illness ; Denies arthralgias, back pain or myalgias Integumentary Denies abscess or rash Neurologic Neurologic: Reports headache(s); Denies paresthesias or weakness Psychiatric Psychiatric: Denies anxiety, depression, suicidal ideation or suicidal thoughts Endocrine Endocrinology: Denies polydipsia, polyphagia or polyuria Hematologic/Lymphatic Hematologic/Lymphatic: Reports easy bleeding and easy bruising Allergic/Immunologic Allergic/Immunologic ED: Denies mouth swelling, tongue swelling or urticaria EXAM Physical Exam Const Vital Signs: 02/05/23 19:31 02/05/23 19:46 02/05/23 21:31 Temperature 97.9 F Temperature Source Temporal Pulse Rate 75 Respiratory Rate 18 18 Respiratory Effort Normal Non-Labored Respiratory Depth Normal Respiratory Pattern Normal Blood Pressure 128/47 H Blood Pressure Mean 74 Pulse Ox 99 Oxygen Delivery Method Room Air Room Air Positive well nourished and well developed General Appearance ED: well developed HEENT Reports normocephalic and moist mucous membranes HEENT Narrative: There is developing hematoma in the occiput. Mild tenderness to palpation. No laceration. No bony depression. Eyes PERRL and EOMs intact bilaterally Neck no lymphadenopathy, supple and no JVD Neck Narrative: Patient with mild diffuse tenderness to palpation on the neck. No crepitance. Resp normal respiratory effort and clear to auscultation bilaterally Cardio regular rate, regular rhythm and no murmurs GI normal to inspection, nondistended, normoactive bowel sounds and non-tender Palpation: soft Back/Spine no CVA tenderness and normal ROM Extremity Extremity Narrative: There is hematoma over the dorsum of the right wrist. Full range of motion however. Minimal tenderness. There is tenderness to palpation over the posterior left hip. No shortening no malrotation. Neurovascularly intact distal. General Extremety ED: Negative for edema General Extremity: Negative for edema Neuro oriented x3 and CN's II-XII intact bilaterally Sensorium / Orientation: alert Motor Exam: strength 5/5 throughout Psych mental status grossly normal Mood & Affect: Negative for depressed or tearful Skin no rashes or lesions noted and no wounds MDM MDM MDM Narrative Medical decision making narrative: CT the brain demonstrates a 8 mm subdural hematoma localized along the left side of the falx. No mass effect. CT of the cervical spine was negative for acute fracture. My independent interpretation of the plain films of the left hip and pelvis is no acute fracture or degenerative changes noted. My independent interpretation of the plain films of the right wrist is no acute fracture or degenerative changes. I updated the patient and her family regarding the results and recommended transfer to tertiary care facility due to the subdural hematoma. She is a patient at the [facility] in [facility] would [facility] the closest facility for them and they have agreed to transfer. I spoke with [facility] Dr. May who is excepted the patient in transfer. History & Record Review Discussion w/independent historian: Patient and Family Additional record(s) reviewed:: Prior inpatient record, Prior ED visit and Prior labs Lab Data Attestation: I reviewed the patient's lab results. Labs: Laboratory Results - last 24 hr 02/05/23 21:58 WBC 13.8 H RBC 2.74 L Hgb 9.9 L Hct 29.8 L MCV 108.8 H MCH 36.1 H MCHC 33.2 RDW Std Deviation 61.5 H RDW Coeff of Maria Del Rosario 15.7 H Plt Count 560 H MPV 9.2 Immature Gran % (Auto) 1.800 H Neut % (Auto) 73.5 H Lymph % (Auto) 11.9 L [place] % (Auto) 6.9 Eos % (Auto) 5.4 H Baso % (Auto) 0.5 Absolute Neuts (auto) 10.2 H Absolute Lymphs (auto) 1.64 Nucleated RBC % 1.1 PT 14.3 INR 1.1 APTT 28.1 Sodium 132 L Potassium 3.8 Chloride 96 L Carbon Dioxide 29.0 Anion Gap 7 BUN 72 H Creatinine 1.93 H Est GFR (MDRD) Af Amer 32 L Est GFR (MDRD) Non-Af 26 L BUN/Creatinine Ratio 37.3 H Glucose 191 H Calcium 9.9 Radiography Diagnostic Testing: Clinical Impression(s) from Imaging Studies Brain CT 02/05/23 20:14 IMPRESSION: Small subdural hematoma localized to the left side of the falx cerebri, 8 mm thickness, no mass effect. Diffuse chronic white matter disease. Electronically Signed: Sai Mack MD at 20:55 EST , ADDENDUM: 02/05/232117 IMPRESSION: Small subdural hematoma localized to the left side of the falx cerebri, 8 mm thickness, no mass effect. Diffuse chronic white matter disease. N.B. : The above Results were Read Back by Sai Mack MD to Vimal Bang DO, and understanding confirmed on 02/05/2023 21:11:33 (ET). Electronically Signed: Sai Mack MD at 20:55 EST , Cervical Spine CT 02/05/23 20:14 IMPRESSION: There is no definite acute fracture/dislocation. Degenerative changes. Electronically Signed: Sai Mack MD at 20:58 EST , Hip/Pelvis X-Ray 02/05/23 20:46 IMPRESSION: No definite acute or significant abnormality seen. Electronically Signed: Sai Mack MD at 21:11 EST , Wrist X-Ray 02/05/23 20:46 IMPRESSION: No acute fracture or dislocation. Demineralization and degenerative changes. Electronically Signed: Sai Mack MD at 21:15 EST , Management Discussion w/another healthcare provider: [employer] ([facility] (Dr. May)) Discharge Plan Triage Chief Complaint: Fall ED Provider: Vimal Bang Dx/Rx/DC Orders Clinical Impression: Acute subdural hematoma, Hematoma of right wrist, Fall, Contusion of hip, left Prescriptions: No Action Januvia 50 mg tablet 50 mg PO DAILY glipizide [Glucotrol] 5 mg tablet 5 mg PO BID Patient Comments: 1.5 tablets in morning and 1 tablet in evening nitroglycerin 0.4 mg tablet, sublingual 0.4 mg SUBLINGUAL Q5-15M PRN (Reason: chest pain) Qty: 25 3RF amlodipine [Norvasc] 5 mg tablet 5 mg PO DAILY Qty: 90 3RF pantoprazole 40 mg tablet,delayed release (DR/EC) 40 mg PO DAILY latanoprost [Xalatan] 0.005 % drops 1 drp ophthalmic (eye) .daily qhs isosorbide mononitrate 30 mg tablet extended release 24 hr 60 mg PO DAILY PreserVision AREDS 4,296 mcg-226 mg-90 mg capsule 1 cap PO BID carvedilol 25 MG tablet 25 mg PO BID clopidogrel 75 MG tablet 75 mg PO DAILY aspirin 81 MG tablet 81 mg PO DAILY@0800 levothyroxine 75 MCG tablet 75 mcg PO QHS pravastatin 80 MG tablet 80 mg PO DAILY cranberry 500 MG capsule 500 mg PO DAILY cholecalciferol (vitamin D3) 1,000 UNIT tablet 1,000 unit PO DAILY citalopram 20 mg tablet 20 mg PO DAILY folic acid 1 mg tablet 1 mg PO BID furosemide 40 mg Tablet 40 mg PO DAILY 30 Days Qty: 30 0RF potassium chloride 10 mEq capsule, extended release 10 meq PO DAILY 30 Days Qty: 30 0RF cyanocobalamin (vitamin B-12) 1,000 mcg capsule 1,000 mcg PO DAILY Primary Care Provider: Koko Fuentes Referrals: Koko Fuentes MD [Primary Care Provider] - Disposition Disposition: Acute Care Hospital Discharge Location: [facility]
--- NOTE | 2023-02-05 20:46 | RAD_ITS ---
STUDY: X-RAY - RIGHT WRIST REASON FOR EXAM: Female, 87 years old. trauma TECHNIQUE: 3 view(s) of the wrist were obtained. COMPARISON: None. FINDINGS: There is demineralization of the radius and ulna. There is degenerative arthrosis of the radiocarpal articulation. Normal distal radioulnar articulation. There is demineralization of the carpal bones. There is degenerative arthrosis of the carpal articulations. There is degenerative arthrosis of the carpometacarpal articulation of the thumb. Normal second through fifth carpometacarpal articulations. Normal visualized metacarpal bones. There is diffuse soft tissue swelling. There is no demonstrated acute fracture. RAD/Wrist min 3 Views IMPRESSION: No acute fracture or dislocation. Demineralization and degenerative changes. Electronically Signed: Sai Mack MD at 21:15 EST ,
--- NOTE | 2023-02-05 20:46 | RAD_ITS ---
STUDY: X-RAY - PELVIS AND LEFT HIP REASON FOR EXAM: Female, 87 years old. trauma TECHNIQUE: 3 views of the pelvis and hip. COMPARISON: None. FINDINGS: There is a non-specific bowel gas pattern. Normal visualized soft tissue structures. There are atherosclerotic vascular calcifications. Normal bilateral iliac wings, sacroiliac joints and visualized sacrum. Normal bilateral superior and inferior pubic rami. Normal pubic symphysis. Normal bilateral ischial tuberosities. Normal visualized femoral head. Normal acetabulum. Normal hip joint. RAD/HIP, UNI W/ Pelvis 2-3 Views IMPRESSION: No definite acute or significant abnormality seen. Electronically Signed: Sai Mack MD at 21:11 [facility] ,
[2023-02-05 21:31] VITALS: RESP 18
--- NOTE | 2023-02-05 21:48 | ED.RN ---
PT ACCEPTED TO [facility] CALLED ETA 3.5 HRS
[2023-02-05 22:05] LABS: Absolute Lymphocyte Count 1.64 X10^3/uL (0.83-4.51); Absolute Neutrophil Count 10.2 X10^3/uL (2.0-7.7); Basophil# 0.07 X10^3/uL; Basophil% 0.5 % (0-1); Eosinophil# 0.75 X10^3/uL; Eosinophils% 5.4 % (0-5); Hematocrit 29.8 % (37-47); Hemoglobin 9.9 g/dL (12.0-15.0); Lymphocyte # 1.64 X10^3/ul (0.83-4.51); Lymphocyte % 11.9 % (19-41); Mean Corp Hgb Conc 33.2 g/dL (32-36); Mean Corpuscular Hgb 36.1 pg (27.0-32.0); Mean Corpuscular Volume 108.8 fL (81-99); Mean Platelet Vol. 9.2 fl (6.2-12.0); Monocyte# 0.96 X10^3/uL; Monocyte% 6.9 % (0-10); NRBC Flagged by Analyzer 1.1 % (0-5); Neutrophil # 10.16 X10^3/uL (2.7-7.7); Neutrophil % 73.5 % (47-70); Platelet Count 560 K/mm3 (150-450); RBC Distribution Width CV 15.7 % (11.6-14.6); RBC Distribution Width SD 61.5 fl (35.1-43.9); Red Blood Count 2.74 M/mm3 (4.2-5.4); White Blood Count 13.8 K/mm3 (4.4-11.0)
[2023-02-05 22:16] LABS: International Normalized Ratio 1.1; Partial Thromboplast Time 28.1 Seconds (24.1-36.2); Prothrombin Time (Protime)PT. 14.3 SECONDS (11.7-14.9)
[2023-02-05 22:18] LABS: Anion Gap 7 (5-15); BUN 72 mg/dL (7-18); BUN/Creat Ratio 37.3 RATIO (10-20); Calcium,Total 9.9 mg/dL (8.5-10.1); Chloride 96 mmol/L (98-107); Creatinine, Serum 1.93 mg/dL (0.55-1.02); EST Glomerular Filtration Rate 26 mL/min (>60); Est Glom Filt Rate - Afr Amer 32 mL/min (>60); Glucose 191 mg/dL (74-106); Potassium 3.8 mmol/L (3.5-5.1); Sodium Level 132 mmol/L (136-145)
[2023-02-05 23:00] VITALS: RESP 18
[2023-02-06 00:08] VITALS: BP 128/53
== END 2023-02-06 00:24 | disposition short-term general hospital (02) ==
PROVIDERS: Emergency Provider Emergency Medicine; PCP Family Medicine; Visit Provider Emergency Medicine
DX: S06.5XAA Traumatic subdural hemorrhage with loss of consciousness status unknown, initial encounter (principal); E11.22 Type 2 diabetes mellitus with diabetic chronic kidney disease; S60.211A Contusion of right wrist, initial encounter; S70.02XA Contusion of left hip, initial encounter; I25.10 Atherosclerotic heart disease of native coronary artery without angina pectoris; N18.9 Chronic kidney disease, unspecified; W19.XXXA Unspecified fall, initial encounter; Z95.5 Presence of coronary angioplasty implant and graft
CPT/HCPCS: 70450; 72125; 73110; 73502; 80048; 85025; 85610; 85730; 99285

== ENCOUNTER → 2023-08-23 | Outpatient (CLI) | payer MEDICARE, OTHER, SELFPAY ==
[2018-09-23 13:08] VITALS: BMI 34.5
[2023-08-23 10:20] LABS: Hematocrit 31.2 % (37-47); Hemoglobin 10.4 g/dL (12.0-15.0); Mean Corp Hgb Conc 33.3 g/dL (32-36); Mean Corpuscular Hgb 37.8 pg (27.0-32.0); Mean Corpuscular Volume 113.5 fL (81-99); Mean Platelet Vol. 10.1 fl (6.2-12.0); POSITIVE MORPHOLOGY YES; Platelet Count 348 K/mm3 (150-450); RBC Distribution Width CV 16.4 % (11.6-14.6); RBC Distribution Width SD 67.5 fl (35.1-43.9); Red Blood Count 2.75 M/mm3 (4.2-5.4); White Blood Count 8.4 K/mm3 (4.4-11.0)
[2023-08-23 10:31] LABS: Scan Indicated on CBC? Y/N YES- FLAGS NOTED
[2023-08-23 10:37] LABS: Albumin, Serum 3.7 g/dL (3.2-5.0); BUN 49 mg/dL (7-18); Calcium,Total 8.8 mg/dL (8.5-10.1); Chloride 103 mmol/L (98-107); Creatinine, Serum 1.53 mg/dL (0.55-1.02); EST Glomerular Filtration Rate 34 mL/min (>60); Est Glom Filt Rate - Afr Amer 41 mL/min (>60); Glucose 275 mg/dL (74-106); Phosphorus 2.9 mg/dL (2.5-4.9); Potassium 4.3 mmol/L (3.5-5.1); Sodium Level 135 mmol/L (136-145)
[2023-08-23 10:38] LABS: PTHIN 209.4 pg/mL (18.4-80.1)
== END | disposition home or self-care (01) ==
LOC: LAB 09:10
PROVIDERS: PCP Family Medicine; Referring Provider Internal Medicine Nephrology; Visit Provider Internal Medicine Nephrology
DX: N18.4 Chronic kidney disease, stage 4 (severe) (principal); D63.8 Anemia in other chronic diseases classified elsewhere
CPT/HCPCS: 36415; 80069; 83970; 85027

== ENCOUNTER → 2023-09-14 | Outpatient (CLI) | payer MEDICARE, OTHER, SELFPAY ==
[2018-09-23 13:08] VITALS: BMI 34.5
[2023-09-14 12:40] LABS: Anion Gap 8 (5-15); BUN 46 mg/dL (7-18); BUN/Creat Ratio 31.1 RATIO (10-20); Calcium,Total 9.4 mg/dL (8.5-10.1); Chloride 102 mmol/L (98-107); Creatinine, Serum 1.48 mg/dL (0.55-1.02); EST Glomerular Filtration Rate 35 mL/min (>60); Est Glom Filt Rate - Afr Amer 43 mL/min (>60); Glucose 244 mg/dL (74-106); Potassium 4.6 mmol/L (3.5-5.1); Sodium Level 135 mmol/L (136-145)
== END | disposition home or self-care (01) ==
LOC: LAB 11:38
PROVIDERS: PCP Family Medicine; Referring Provider Nurse Practitioner Gerontology; Visit Provider Nurse Practitioner Gerontology
DX: R06.09 Other forms of dyspnea (principal)
CPT/HCPCS: 36415; 80048; 83880

== ENCOUNTER → 2023-10-06 | Outpatient (CLI) | payer MEDICARE, OTHER, SELFPAY ==
[2018-09-23 13:08] VITALS: BMI 34.5
--- NOTE | 2023-10-06 12:43 | CDU_ITS ---
Reason For Study: Dizziness Rt. Velocities/BP Lt. Velocities/BP Prox CCA 64.8/10.0 cm/sec. Prox CCA 70.7/14.2 cm/sec. Mid CCA 53.5/9.1 cm/sec. Mid CCA 68.3/16.7 cm/sec. Dist CCA 53.5/11.9 cm/sec. Dist CCA 86.7/17.9 cm/sec. Prox ICA 141.8/25.5 cm/sec. Prox ICA 103.0/21.7 cm/sec. Mid ICA 122.1/18.9 cm/sec. Mid ICA 92.9/27.6 cm/sec. Dist ICA 76.1/18.5 cm/sec. Dist ICA 52.7/12.2 cm/sec. Rt. ICA/CCA = 2.7. Lt. ICA/CCA = 1.5. Prox ECA 108.9/0.0 cm/sec. Prox ECA 88.3/0.0 cm/sec. Rt. Vert. 74.3/13.8 cm/sec. Lt. Vert. 37.6/10.6 cm/sec. Right Extracranial There is heterogeneous, irregular atherosclerotic plaque noted in the right common carotid artery. There is heterogeneous, irregular atherosclerotic plaque noted in the right internal carotid artery. There is heterogeneous, irregular atherosclerotic plaque noted in the right external carotid artery. Antegrade flow is noted in the right vertebral artery. Left Extracranial There is heterogeneous, irregular atherosclerotic plaque noted in the left common carotid artery. There is heterogeneous, irregular atherosclerotic plaque noted in the left internal carotid artery. There is heterogeneous, irregular atherosclerotic plaque noted in the left external carotid artery. Antegrade flow is noted in the left vertebral artery. Procedure Carotid Duplex 43404. This is a Carotid Duplex examination using B-mode, color flow and specral Doppler. The exam was diagnostic. Exam performed in department. VL/Carotid Duplex Ultrasound Interpretation Summary Moderate (50-69%) stenosis right extracranial internal carotid. Mild (<50%) stenosis left extracranial internal carotid. Patent and antegrade vertebrals bilaterally. Ordering Physician: Dorothy Cody Referring Physician: Oj Fuentes Performed By: Jameel Kidd RVT
== END | disposition home or self-care (01) ==
LOC: CVS 12:43
PROVIDERS: PCP Family Medicine; Referring Provider Nurse Practitioner Gerontology; Visit Provider Nurse Practitioner Gerontology
DX: R42 Dizziness and giddiness (principal)
CPT/HCPCS: 93880

== ENCOUNTER → 2024-01-06 | Outpatient (CLI) | payer MEDICARE, OTHER, SELFPAY ==
[2018-09-23 13:08] VITALS: BMI 34.5
[2024-01-06 09:58] LABS: Hemoglobin 10.1 g/dL (12.0-15.0); Mean Corp Hgb Conc 33.7 g/dL (32-36); Mean Corpuscular Hgb 37.5 pg (27.0-32.0); Mean Corpuscular Volume 111.5 fL (81-99); Mean Platelet Vol. 9.7 fl (6.2-12.0); POSITIVE MORPHOLOGY YES; Platelet Count 362 K/mm3 (150-450); RBC Distribution Width CV 16.4 % (11.6-14.6); RBC Distribution Width SD 67.2 fl (35.1-43.9); Red Blood Count 2.69 M/mm3 (4.2-5.4); White Blood Count 9.2 K/mm3 (4.4-11.0)
[2024-01-06 09:59] LABS: Scan Indicated on CBC? Y/N YES- FLAGS NOTED
[2024-01-06 10:26] LABS: PTHIN 152.5 pg/mL (18.4-80.1)
[2024-01-06 10:30] LABS: Vitamin D,25 Hydroxy 50.3 ng/mL
[2024-01-06 10:47] LABS: Albumin, Serum 3.7 g/dL (3.2-5.0); BUN 62 mg/dL (7-18); Calcium,Total 9.4 mg/dL (8.5-10.1); Chloride 103 mmol/L (98-107); Creatinine, Serum 1.63 mg/dL (0.55-1.02); EST Glomerular Filtration Rate 32 mL/min (>60); Est Glom Filt Rate - Afr Amer 38 mL/min (>60); Glucose 199 mg/dL (74-106); Phosphorus 3.9 mg/dL (2.5-4.9); Potassium 4.2 mmol/L (3.5-5.1); Sodium Level 135 mmol/L (136-145)
== END | disposition home or self-care (01) ==
LOC: LAB 09:11
PROVIDERS: PCP Family Medicine; Referring Provider Internal Medicine Nephrology; Visit Provider Internal Medicine Nephrology
DX: E11.22 Type 2 diabetes mellitus with diabetic chronic kidney disease (principal); N18.32 Chronic kidney disease, stage 3b; D50.9 Iron deficiency anemia, unspecified; N25.81 Secondary hyperparathyroidism of renal origin
CPT/HCPCS: 36415; 80069; 82306; 83970; 85027

== ENCOUNTER → 2024-08-21 | Outpatient (CLI) | payer MEDICARE, OTHER, SELFPAY ==
[2018-09-23 13:08] VITALS: BMI 34.5
[2024-08-21 15:17] LABS: Phosphorus 3.7 mg/dL (2.7-4.5)
[2024-08-21 15:18] LABS: Albumin, Serum 4.2 g/dL (3.4-4.8); Anion Gap 15 (5-15); BUN 58 mg/dL (4-19); BUN/Creat Ratio 44.5 RATIO (10-20); Calcium,Total 9.5 mg/dL (7.6-11.0); Carbon Dioxide 23.1 mmol/L (21.0-32.0); Chloride 94 mmol/L (98-108); EST Glomerular Filtration Rate 40 (>60); Glucose 439 mg/dL (70-99); Potassium 4.7 mmol/L (3.3-5.1); Sodium Level 132 mmol/L (133-145)
[2024-08-21 15:49] LABS: PTHIN 177 pg/mL (11-61)
[2024-08-21 16:11] LABS: Protein:Creat Ratio 483 mg/g CRE (0-200)
== END | disposition home or self-care (01) ==
LOC: LAB 14:07
PROVIDERS: PCP Family Medicine; Referring Provider Internal Medicine Nephrology; Visit Provider Internal Medicine Nephrology
DX: E11.22 Type 2 diabetes mellitus with diabetic chronic kidney disease (principal); N18.32 Chronic kidney disease, stage 3b; N25.81 Secondary hyperparathyroidism of renal origin
CPT/HCPCS: 36415; 80069; 82570; 83970; 84156

== ENCOUNTER 2024-10-11 13:20 | Inpatient (IN) | payer MEDICARE, OTHER, SELFPAY ==
[2018-09-23 13:08] VITALS: BMI 34.5
[2024-10-11] VITALS (10 sets, daily range): BP systolic 102–126; BP diastolic 47–58; PULSE 58–88; RESP 13–23; TEMP 36.7–37; O2SAT 82–100; BMI 28.4
--- NOTE | 2024-10-11 13:34 | RAD_ITS ---
PROCEDURE: CHEST 1 VIEW (PORTABLE) 10/11/2024 REASON FOR EXAM: HYPERGLYCEMIA TECHNIQUE: Frontal view of the chest. COMPARISON: None FINDINGS: There is mild cardiomegaly without overt CHF. There is a 1.4 cm density overlying the right lower hilum. There is no pneumothorax. There is no significant effusion. There is no acute bony abnormality. Aortic calcifications are noted. RAD/Chest 1 View (Portable) IMPRESSION: There is mild cardiomegaly without overt CHF. There is a 1.4 cm density overlying the right lower hilum. Chest CT correlatio n is recommended. Reading Location: [facility]
--- NOTE | 2024-10-11 13:53 | EDS_ITS ---
HPI History of Present Illness Chief Complaint: Hyperglycemia Narrative Narrative: Chief complaint and HPI: Hyperglycemia. 89-year-old female with past medical history of DM2, HTN, hypothyroidism, CKD presents for evaluation of hyperglycemia. Patient states that she has been having issues with hyperglycemia. Currently her diabetes is uncontrolled. She follows with her primary care physician. She is on Jardiance 10 mg, Ozempic 2 mg once a week (ook it last night), and Lantus 38 units at night. She was told that if her glucose remained high today she was to increase it tomorrow to 44 units. Patient states she has remained hyperglycemic into the 300/400s at home. States her monitor read high prior to arrival. She endorses fatigue and increased urinary frequency. Denies any fever, chills, chest pain, shortness of breath, abdominal pain, nausea, vomiting, diarrhea, constipation, dysuria, URI symptoms. Review of systems: See HPI Medications: As listed on the chart Allergies: As listed on the chart PFSH: Per chart Vital signs: As listed on the chart. Reviewed. Physical exam: Gen: A&O x3, NAD Head: Normocephalic, atraumatic Eyes: No sclera icterus, conjunctiva clear ENT: Mildly dry mucous membranes Neck: Trachea midline, No JVD CV: RRR, no murmurs, no peripheral edema Resp: Lungs CTA BL, no w/r/c GI: Abd soft, non-distended, non-tender, no r/r/g Musc: Full ROM, no deformity Skin: Warm, dry Neuro: Alert, oriented, grossly intact, sensation intact Psych: Cooperative, appropriate mood and [facility] History Chronic kidney disease Obesity Atherosclerosis of coronary artery without angina pectoris Pericardial effusion with cardiac tamponade Essential (primary) hypertension Hyperlipidemia Type 2 diabetes mellitus Hypothyroidism Home Medications ?Medication ?Instructions ?Recorded ?Last Taken ?Type carvedilol 25 mg tablet 25 mg PO BID 01/02/15 History cholecalciferol (vitamin D3) 25 1,000 unit PO DAILY Unknown History mcg (1,000 unit) tablet cranberry 500 mg capsule 500 mg PO DAILY 01/02/15 Unk nown History levothyroxine 75 mcg tablet 75 mcg PO QHS 01/02/1503/02 History pravastatin 80 mg tablet 80 mg PO DAILY 01/02/15 Unkn own History sitagliptin phosphate 50 mg tablet 50 mg PO DAILY 08/13 Unknown History (Oskaruvia) nitroglycerin 0.4 mg sublingual 0.4 mg sublingual Q5-1 5M PRN chest 12/07/18 Unknown Rx tablet pain #25 tabs
--- NOTE | 2024-10-11 13:53 | EX.ED.DYSGE1 ---
HPI History of Present Illness Chief Complaint: Hyperglycemia Narrative Narrative: Chief complaint and HPI: Hyperglycemia. 89-year-old female with past medical history of DM2, HTN, hypothyroidism, CKD presents for evaluation of hyperglycemia. Patient states that she has been having issues with hyperglycemia. Currently her diabetes is uncontrolled. She follows with her primary care physician. She is on Jardiance 10 mg, Ozempic 2 mg once a week (ook it last night), and Lantus 38 units at night. She was told that if her glucose remained high today she was to increase it tomorrow to 44 units. Patient states she has remained hyperglycemic into the 300/400s at home. States her monitor read high prior to arrival. She endorses fatigue and increased urinary frequency. Denies any fever, chills, chest pain, shortness of breath, abdominal pain, nausea, vomiting, diarrhea, constipation, dysuria, URI symptoms. Review of systems: See HPI Medications: As listed on the chart Allergies: As listed on the chart PFSH: Per chart Vital signs: As listed on the chart. Reviewed. Physical exam: Gen: A&O x3, NAD Head: Normocephalic, atraumatic Eyes: No sclera icterus, conjunctiva clear ENT: Mildly dry mucous membranes Neck: Trachea midline, No JVD CV: RRR, no murmurs, no peripheral edema Resp: Lungs CTA BL, no w/r/c GI: Abd soft, non-distended, non-tender, no r/r/g Musc: Full ROM, no deformity Skin: Warm, dry Neuro: Alert, oriented, grossly intact, sensation intact Psych: Cooperative, appropriate mood and affect [facility] Medical History Chronic kidney disease Obesity Atherosclerosis of coronary artery without angina pectoris Pericardial effusion with cardiac tamponade Essential (primary) hypertension Hyperlipidemia Type 2 diabetes mellitus Hypothyroidism Home Medications ?Medication ?Instructions ?Recorded ?Last Taken ?Type carvedilol 25 mg tablet 25 mg PO BID 01/02/15 09/23/18 History cholecalciferol (vitamin D3) 25 1,000 unit PO DAILY 01/02/15 Unknown History mcg (1,000 unit) tablet cranberry 500 mg capsule 500 mg PO DAILY 01/02/15 Unknown History levothyroxine 75 mcg tablet 75 mcg PO QHS 01/02/15 09/23/18 History pravastatin 80 mg tablet 80 mg PO DAILY 01/02/15 Unknown History sitagliptin phosphate 50 mg tablet 50 mg PO DAILY 08/22/18 Unknown History (Januvia) nitroglycerin 0.4 mg sublingual 0.4 mg sublingual Q5-15M PRN chest 12/07/18 Unknown Rx tablet pain #25 tabs citalopram 20 mg tablet 20 mg PO DAILY 08/22/19 Unknown History folic acid 1 mg tablet 1 mg PO BID 08/22/19 Unknown History latanoprost 0.005 % eye drops 1 drp ophthalmic (eye) .daily qhs 04/04/21 Unknown History (Xalatan) eye pantoprazole 40 mg tablet,delayed 40 mg PO DAILY 04/04/21 Unknown History release cyanocobalamin (vitamin B-12) 1,000 mcg PO DAILY 05/21/22 Unknown History 1,000 mcg capsule isosorbide mononitrate 30 mg 60 mg PO DAILY 09/21/22 Unknown History tablet,extended release 24 hr vitamins A,C,U-qvnh-oexcnj 4,296 1 cap PO BID 09/21/22 Unknown History mcg-226 mg-90 mg capsule (PreserVision AREDS) furosemide 40 mg tablet 40 mg PO DAILY 30 days #30 tabs 01/31/23 Unknown Rx potassium chloride 10 mEq 10 meq PO DAILY 30 days #30 caps 01/31/23 Unknown Rx capsule,extended release acetaminophen 500 mg capsule 500 mg PO Q6H PRN 02/19/23 Unknown History aspirin 81 mg tablet,delayed 81 mg PO DAILY@0800 #30 tabs 09/14/23 Unknown Rx release glipizide 5 mg tablet (Glucotrol) 10 mg PO BID 09/14/23 Unknown History amlodipine 5 mg tablet (Norvasc) 2.5 mg PO DAILY 04/27/24 Unknown History semaglutide 0.25 mg or 0.5 mg (2 0.25 mg subcut QWEEK 04/27/24 Unknown History mg/3 mL) subcutaneous pen injector (Ozempic) Allergy/AdvReac Type Severity Reaction Status Date / Time quinapril HCl (From Accupril) Allergy Other Verified 10/11/24 13:23 Sulfa (Sulfonamide Allergy Rash Verified 10/11/24 13:23 Antibiotics) Family History Other CAD (coronary artery disease) Diabetes Hyperlipidemia Hypothyroidism Obesity Type 2 diabetes mellitus Surgical History History of coronary angioplasty (09/23/18) History of herniorrhaphy History of carpal tunnel release Hx of cholecystectomy History of bladder suspension procedure History of hysterectomy History of partial thyroidectomy S/P pericardial window creation (11/20/11) History of coronary artery stent placement (11/20/11) Social History Smoking Status: Never smoker alcohol intake: never substance use type: does not use EXAM Physical Exam Const Vital Signs: 10/11/24 13:21 10/11/24 13:22 10/11/24 14:21 Temperature 98.5 F Temperature Source Oral Pulse Rate 58 L 87 Respiratory Rate 18 23 H Respiratory Effort Normal Non-Labored Respiratory Pattern Normal Blood Pressure 123/58 H 126/54 H Blood Pressure Mean 79 78 Pulse Ox 98 100 Oxygen Delivery Method Room Air Room Air 10/11/24 15:00 10/11/24 16:00 Temperature Temperature Source Pulse Rate 88 83 Respiratory Rate 13 17 Respiratory Effort Respiratory Pattern Blood Pressure 102/51 L 111/55 L Blood Pressure Mean 68 73 Pulse Ox 95 97 Oxygen Delivery Method Room Air MDM MDM MDM Narrative Medical decision making narrative: 89-year-old female with past medical history of DM2, HTN, hypothyroidism, CKD presents for evaluation of hyperglycemia. Patient states that she has been having issues with hyperglycemia. Currently her diabetes is uncontrolled. She follows with her primary care physician. She is on Jardiance 10 mg, Ozempic 2 mg once a week (took it last night), and Lantus 38 units at night. She was told that if her glucose remained high today she was to increase it tomorrow to 44 units. Differential diagnosis includes but is not limited to hyperglycemia, electrolyte abnormality, DKA, HHS, UTI, pneumonia. NS bolus ordered. Hyperglycemia/DKA workup ordered. VBG without acidosis. CBC without leukocytosis. Patient has baseline anemia. CMP shows hyponatremia with a sodium of 128. Patient's baseline is around 132. Potassium unremarkable. She has baseline CKD with a BUN of 55 and creatinine of 1.81. Patient does have a mild anion gap of 16. Bicarb unremarkable. Her glucose is 549. 10 units IV insulin ordered. No transaminitis. Beta hydroxybutyrate mildly elevated at 0.8. UA negative for ketones. Positive for glucose and UTI. Urine culture sent. Rocephin ordered. Patient not in DKA. Will repeat BMP after fluids. Chest x-ray was personally viewed interpreted by me, ED physician. Mild cardiomegaly. No large effusion, pneumonia, pneumothorax. Radiology in agreement. There is a 1.4 cm density overlying the right lower hilum per radiology. Recommend CT chest. This can be performed outpatient. Repeat glucose 408 despite 10 units of insulin IV. Patient also having periodic desaturations of oxygen with ambulation as well as blood pressure becoming more soft. At this point in time, I feel that patient will warrant admission for continued hyperglycemia treatment and monitoring as well as IV antibiotics for her UTI. Patient and family confirmed understanding of the plan. I spoke with Dr. Culver who agrees for admission. Impression: 1. Hyperglycemia with known type 2 diabetes 2. UTI 3. Acute on chronic mild hyponatremia 4. Dehydration 5. 1.4 cm density overlying the right lower hilum Lab Data Labs: Laboratory Results - last 24 hr 10/11/24 10/11/24 10/11/24 13:50 14:14 15:57 WBC 10.6 RBC 2.48 L Hgb 9.4 L Hct 27.3 L MCV 110.1 H MCH 37.9 H MCHC 34.4 RDW Std Deviation 63.8 H RDW Coeff of Maria Del Rosario 16.0 H Plt Count 395 MPV 9.9 Immature Gran % (Auto) 0.600 Neut % (Auto) 73.6 H Lymph % (Auto) 15.0 L [place] % (Auto) 7.9 Eos % (Auto) 2.6 Baso % (Auto) 0.3 Absolute Neuts (auto) 7.8 H Absolute Lymphs (auto) 1.58 Nucleated RBC % 1.5 Sodium 128 L Potassium 4.4 Chloride 90 L Carbon Dioxide 22.6 Anion Gap 16 H BUN 55 H Creatinine 1.81 H Est GFR (MDRD) Non-Af 27 L BUN/Creatinine Ratio 30.5 H Glucose 549 H* Calcium 9.7 Total Bilirubin 0.64 AST 20 ALT 14 Alkaline Phosphatase 69 Total Protein 7.2 Albumin 4.2 Globulin 3.1 Albumin/Globulin Ratio 1.4 b-Hydroxybutyric mmol/L 0.8 H Urine Color Yellow Urine Clarity Turbid Urine pH 6.0 Ur Specific [place] 1.015 Urine Protein 30 H Urine Glucose (UA) 1000 H Urine Ketones Negative Urine Occult Blood 50 H Urine Nitrite Positive H Urine Bilirubin Negative Urine Urobilinogen Normal Ur Leukocyte Esterase 500 H Urine RBC 5-10 SEEN Urine WBC >100 SEEN Ur Squamous Epith Cells 0 SEEN Urine Bacteria 1+ Urine Mucus 0 SEEN Urine Yeast 3+ POC Glucose 408 H ABG Data ABG results: ABG 10/11/24 13:58 Specimen Type DESTINEE Sample Site Not entered VBG pH 7.44 H VBG pO2 60 H VBG HCO3 26 VBG Total CO2 27 VBG O2 Sat (Calc) 92 H VBG Base Excess 2 POC Mix VBG pCO2 Pt Tmp 38.1 L O2 Delivery Device Not entered Radiography Diagnostic Testing: Clinical Impression(s) from Imaging Studies Chest X-Ray 10/11/24 13:34 IMPRESSION: There is mild cardiomegaly without overt CHF. There is a 1.4 cm density overlying the right lower hilum. Chest CT correlation is recommended. Reading Location: [facility] Discharge Plan Triage Chief Complaint: Hyperglycemia ED Provider: Darrel Damico Dx/Rx/DC Orders Prescriptions: No Action Januvia 50 mg tablet 50 mg PO DAILY glipizide [Glucotrol] 5 mg tablet 10 mg PO BID Patient Comments: 2 tablets in morning and 1 tablet in evening nitroglycerin 0.4 mg tablet, sublingual 0.4 mg SUBLINGUAL Q5-15M PRN (Reason: chest pain) Qty: 25 3RF pantoprazole 40 mg tablet,delayed release (DR/EC) 40 mg PO DAILY latanoprost [Xalatan] 0.005 % drops 1 drp ophthalmic (eye) .daily qhs isosorbide mononitrate 30 mg tablet extended release 24 hr 60 mg PO DAILY PreserVision AREDS 4,296 mcg-226 mg-90 mg capsule 1 cap PO BID acetaminophen 500 mg capsule 500 mg PO Q6H PRN aspirin 81 mg tablet,delayed release (DR/EC) 81 mg PO DAILY@0800 Qty: 30 0RF amlodipine [Norvasc] 5 mg tablet 2.5 mg PO DAILY Ozempic 0.25 mg or 0.5 mg (2 mg/3 mL) pen injector 0.25 mg subcut QWEEK Rx Instructions: for 4 weeks carvedilol 25 MG tablet 25 mg PO BID levothyroxine 75 MCG tablet 75 mcg PO QHS pravastatin 80 MG tablet 80 mg PO DAILY cranberry 500 MG capsule 500 mg PO DAILY cholecalciferol (vitamin D3) 1,000 UNIT tablet 1,000 unit PO DAILY citalopram 20 mg tablet 20 mg PO DAILY folic acid 1 mg tablet 1 mg PO BID furosemide 40 mg Tablet 40 mg PO DAILY 30 Days Qty: 30 0RF potassium chloride 10 mEq capsule, extended release 10 meq PO DAILY 30 Days Qty: 30 0RF cyanocobalamin (vitamin B-12) 1,000 mcg capsule 1,000 mcg PO DAILY Primary Care Provider: Koko Fuentes Referrals: Koko Fuentes MD [Primary Care Provider] - Print Language: Arabic
[2024-10-11 14:01] LABS: Hematocrit 27.3 % (37-47); Hemoglobin 9.4 g/dL (12.0-15.0); Immature Granulocytes Count 0.060 X10^3/uL (0.0-0.0); Mean Corp Hgb Conc 34.4 g/dL (32-36); Mean Corpuscular Volume 110.1 fL (81-99); Mean Platelet Vol. 9.9 fl (6.2-12.0); NRBC Flagged by Analyzer 1.5 % (0-5); Platelet Count 395 K/mm3 (150-450); RBC Distribution Width CV 16.0 % (11.6-14.6); RBC Distribution Width SD 63.8 fl (35.1-43.9); Red Blood Count 2.48 M/mm3 (4.2-5.4); White Blood Count 10.6 K/mm3 (4.4-11.0)
[2024-10-11 14:01] LABS: SITE Not entered; VBG BASE EXCESS 2 mmol/L (-1.0-3.5); VBG PO2 60 mmHg (25-40); VBG SO2 92 % (50-70); VBG TCO2 27 mmol/L (23-33)
[2024-10-11] MEDS: 0.9% Normal Saline (1000mL) 1,000 ML 1000 ML IV (14:02)
[2024-10-11 14:24] LABS: Mucous, Urine 0 SEEN /hpf (<or=2+); Squamous Epithelial Cells - UA 0 SEEN /hpf (5-10)
[2024-10-11 14:24] LABS: BETA-HYDROXYBUTYRATE 0.8 mmol/L (0.0-0.3)
[2024-10-11 14:28] LABS: AST(SGOT) 20 U/L (<=31); Alanine Aminotransfer ALT/SGPT 14 U/L (<=34); Albumin, Serum 4.2 g/dL (3.4-4.8); Alkaline Phosphatase 69 U/L (35-104); Anion Gap 16 (5-15); BUN 55 mg/dL (4-19); BUN/Creat Ratio 30.5 RATIO (10-20); Calcium,Total 9.7 mg/dL (7.6-11.0); Carbon Dioxide 22.6 mmol/L (21.0-32.0); Chloride 90 mmol/L (98-108); Globulin 3.1 g/dL (2.2-4.2); Glucose 549 mg/dL (70-99); Potassium 4.4 mmol/L (3.3-5.1)
[2024-10-11 14:30] LABS: Color, Urine Yellow (Yellow); Glucose, Dipstick 1000 mg/dl (Normal); Ketone-Dipstick Negative (Negative); Leukocyte Esterase-Dipstick 500 /ul (Negative); Nitrite-Dipstick Positive (Negative); Occult Blood-Urine 50 /ul (Negative); Protein-Dipstick 30 mg/dl (Negative); Specific Gravity, Urine 1.015 (1.002-1.030); Urine Bilirubin Dipstick Negative (Negative)
[2024-10-11 14:51] LABS: Red Blood Cells-Urine 5-10 SEEN /hpf (0-5); Yeast-Urine 3+ /hpf (None Seen)
--- NOTE | 2024-10-11 15:03 | ED.RN ---
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 dr galvan notified
[2024-10-11] MEDS: Insulin Lispro 10 UNIT in Syringe 0 ML 6 UNIT IV (15:08)
--- NOTE | 2024-10-11 16:11 | HP.PCM.HOS_ITS ---
HPI - General General Date of Admission: 10/11/24 Date of Service: 10/11/24 Chief Complaint: Worsening hyperglycemia with UTI symptoms and fatigue with weakness HPI Narrative KRISTEL RYAN, is a 89 F who presented to [facility] ED on 10/11/2024 with worsening hyperglycemia with UTI symptoms and fatigue with weakness. Patient lives at home alone. Medical history is significant for type 2 diabetes mellitus, CKD stage III, CAD with stenting, hypertension, hyperlipidemia and hypothyroidism. Her PCP manages her diabetes. Reviewed recent PCP note from 10/06 in [facility]. Was noted that patient's A1c increased from 8.8% in June to 12% on 09/19. She was previously on Ozempic and Jardiance but with this severe increase in A1c, she was started on Lantus 20 units at night and asked to check her blood sugars both in the morning and at night. She noted that the blood sugars continue to be in the 300s to 400s. Her Lantus dose has been escalated steadily without much improvement. She has been taking 38 units at night over the past few days. She has had increased urinary frequency and thirst over the past month. Has had mild burning with urination as well. She has also now felt more fatigued over the past few weeks. In the ED she was normotensive, normal sinus rhythm and stable on room air. BMP showed glucose 549. Anion gap of 16 was noted and beta-hydroxybutyrate was 0.8. Creatinine 1.81 (baseline 1.3-1.4). She was given 1 L of normal saline and 10 units of Humalog with glucose improvement to 336 and creatinine improvement to 1.63. UA showed 500 leukocyte esterase, positive nitrites, 1+ bacteria, 3+ yeast. Given concern for persistent hyperglycemia, UTI and fatigue with weakness, hospitalist was contacted for admission. I saw the patient at bedside in the ED, daughter was present. Patient was fatigued appearing but otherwise sitting back fairly comfortably in bed, conversing normally and in no acute distress. She admits that she has been able to ambulate around her house slowly over the past week or so but has certainly felt more fatigued and weak than her normal. She continues to feel thirsty and has had significant urine output over the past several days. She denies any fevers or chills. She does report some low right-sided back pain that has worsened over the past few days. No other acute concerns recently. Will be admitted for further management. FORMERLY [facility], [facility]–1983 Medical History (Reviewed 04/27/24 @ 11:39 by David Walter SECRETARY TO [employer], SECRETARY TO [employer]-C) Chronic kidney disease Obesity Atherosclerosis of coronary artery without angina pectoris Pericardial effusion with cardiac tamponade Essential (primary) hypertension Hyperlipidemia Type 2 diabetes mellitus Hypothyroidism Home Medications ?Medication ?Instructions ?Recorded ?Last Taken ?Type carvedilol 25 mg tablet 25 mg PO BID 01/02/15 History cholecalciferol (vitamin D3) 25 1,000 unit PO DAILY Unknown History mcg (1,000 unit) tablet cranberry 500 mg capsule 500 mg PO DAILY 01/02/15 Unk nown History levothyroxine 75 mcg tablet 75 mcg PO DAILY 01/02/15 0 09/23/18 History pravastatin 80 mg tablet 80 mg PO DAILY 01/02/15 Unkn own History nitroglycerin 0.4 mg sublingual 0.4 mg sublingual Q5-1 5M PRN chest 12/07/18 Unknown Rx tablet pain #25 tabs citalopram 20 mg tablet 20 mg PO DAILY 08/22/19 Unkn own History folic acid 1 mg tablet 1 mg PO BID 08/22/19 Unknown History latanoprost 0.005 % eye drops 1 drp ophthalmic (eye) . daily qhs 04/04/21 Unknown History (Xalatan) eye pantoprazole 40 mg tablet,delayed 40 mg PO DAILY 04/04 Unknown History release cyanocobalamin (vitamin B-12) 1,000 mcg PO DAILY 05/21 Unknown History 1,000 mcg capsule isosorbide mononitrate 30 mg 60 mg PO DAILY 09/21/22 U nknown History tablet,extended release 24 hr vitamins A,C,V-vzvz-toplih 4,296 1 cap PO BID 09/21/22 Unknown History mcg-226 mg-90 mg capsule (PreserVision AREDS) furosemide 40 mg tablet 40 mg PO DAILY 30 days #30 t abs 01/31/23 Unknown Rx potassium chloride 10 mEq 10 meq PO DAILY 30 days #30 caps 01/31/23 Unknown Rx capsule,extended release acetaminophen 500 mg capsule 1,000 mg PO Q8H PRN PRN f ever or 02/19/23 Unknown History pain aspirin 81 mg tablet,delayed 81 mg PO DAILY@00 #30 t abs 09/14/23 Unknown Rx release amlodipine 5 mg tablet (Norvasc) 2.5 mg PO DAILY 04/27 Unknown History semaglutide 0.25 mg or 0.5 mg (2 0.25 mg subcut QWEEK 04/27/24 Unknown History mg/3 mL) subcutaneous pen injector (Ozempic) empagliflozin 10 mg tablet 10 mg PO DAILY 10/11/24 Unk nown History (Jardiance) insulin glargine 100 unit/mL (3 38 unit subcut QHS dm 10/11/24 Unknown History mL) subcutaneous pen (Lantus Solostar U-100 Insulin) Allergy/AdvReac Type Severity Reaction Status Date / Time quinapril HCl (From Accupril) Allergy Other Verified 10/11/24 13:23 Sulfa (Sulfonamide Allergy Rash Verified 10/11/24 13:23 Antibiotics) Family History (Reviewed 04/27/24 @ 11:39 by David Walter SECRETARY [employer], SECRETARY TO [employer]-C) Other CAD (coronary artery disease) Diabetes Hyperlipidemia Hypothyroidism Obesity Type 2 diabetes mellitus Surgical History (Reviewed 04/27/24 @ 11:39 by David Walter SECRETARY [employer], SECRETARY TO [employer]-C) History of coronary angioplasty (09/23/18) History of herniorrhaphy History of carpal tunnel release Hx of cholecystectomy History of bladder suspension procedure History of hysterectomy History of partial thyroidectomy S/P pericardial window creation (11/20/11) History of coronary artery stent placement (11/20/11) Social History (Reviewed 04/27/24 @ 11:39 by David Walter SECRETARY [employer], SECRETARY TO [employer]-C) Smoking Status: Never smoker alcohol intake: never substance use type: does not use ROS Constitutional Constitutional: Reports fatigue and weakness; Denies chills or fever(s) Eyes Eyes: Denies change in vision Cardiovascular Cardiovascular: Denies chest pain Respiratory/Chest Respiratory/Chest: Denies shortness of breath at rest Gastrointestinal Gastrointestinal: Denies abdominal pain, nausea or vomiting Genitourinary Genitourinary: Reports burning urination, dysuria and urinary frequency Musculoskeletal Musculoskeletal: Denies arthralgias or myalgias Neurologic Neurologic: Denies dizziness, focal weakness or headache(s) Endocrine Endocrinology: Reports polydipsia and polyuria Vital Signs Vital Signs Vital Signs: 10/11/24 13:21 10/11/24 13:22 10/11/24 14:21 Temperature 98.5 F Temperature Source Oral Pulse Rate 58 L 87 Respiratory Rate 18 23 H Respiratory Effort Normal Non-Labored Respiratory Pattern Normal Blood Pressure 123/58 H 126/54 H Blood Pressure Mean 79 78 Pulse Ox 98 100 Oxygen Delivery Method Room Air Room Air 10/11/24 15:00 Temperature Temperature Source Pulse Rate 88 Respiratory Rate 13 Respiratory Effort Respiratory Pattern Blood Pressure 102/51 L Blood Pressure Mean 68 Pulse Ox 95 Oxygen Delivery Method Physical Exam Const alert, oriented x3, no apparent distress and average body habitus Constitutional Narrative: Pleasant elderly female, fatigued appearing, otherwise sitting back fairly comfortably in bed, conversing normally, in no acute distress. General Appearance: cooperative and comfortable HEENT normocephalic, head/scalp atraumatic, hearing grossly normal bilaterally and nasal mucous membranes and turbinates normal HEENT Narrative: Dry mucous membranes. Eyes PERRL, EOMs intact bilaterally and conjunctivae normal Neck full ROM Chest inspection of chest normal Resp normal respiratory effort, normal air movement, no use of accessory muscles and clear to auscultation bilaterally Cardio regular rate, regular rhythm, no murmurs and peripheral pulses 2+ throughout GI normal to inspection, nondistended, normoactive bowel sounds, soft to palpation, non-tender and non-distended Back/Spine normal ROM Extremity normal to inspection, full ROM and no pedal edema Skin no rashes or lesions noted Neuro moves all extremities and no focal motor deficits Speech: speech normal Motor Exam: strength 5/5 throughout Psych mental status grossly normal Results Lab / Micro Data 10/11/24 13:50 10/11/24 16:07 Labs: Laboratory Results - last 24 hr 10/11/24 13:50: WBC 10.6, RBC 2.48 L, Hgb 9.4 L, Hct 27.3 L, MCV 110.1 H, MCH 37.9 H, MCHC 34.4, RDW Std Deviation 63.8 H, RDW Coeff of Maria Del Rosario 16.0 H, Plt Count 395, MPV 9.9, Immature Gran % (Auto) 0.600, Neut % (Auto) 73.6 H, Lymph % (Auto) 15.0 L, [place] % (Auto) 7.9, Eos % (Auto) 2.6, Baso % (Auto) 0.3, Absolute Neuts (auto) 7.8 H, Absolute Lymphs (auto) 1.58, Nucleated RBC % 1.5, Sodium 128 L, Potassium 4.4, Chloride 90 L, Carbon Dioxide 22.6, Anion Gap 16 H, BUN 55 H, C reatinine 1.81 H, Est GFR (MDRD) Non-Af 27 L, BUN/Creatinine Ratio 30.5 H, G lucose 549 H*, Calcium 9.7, Total Bilirubin 0.64, AST 20, ALT 14, Alkaline Phosphatase 69, Total Protein 7.2, Albumin 4.2, Globulin 3.1, Albumin/Globulin Ratio 1.4, b-Hydroxybutyric mmol/L 0.8 H 10/11/24 14:14: Urine Color Yellow, Urine Clarity Turbid, Urine pH 6.0, Ur Specific [place] 1.015, Urine Protein 30 H, Urine Glucose (UA) 1000 H, Urine Ketones Negative, Urine Occult Blood 50 H, Urine Nitrite Positive H, Urine Bilirubin Negative, Urine Urobilinogen Normal, Ur Leukocyte Esterase 500 H, Urine RBC 5-10 SEEN, Urine WBC >100 SEEN, Ur Squamous Epith Cells 0 SEEN, Urine Bacteria 1+, Urine Mucus 0 SEEN, Urine Yeast 3+ ABG Data ABG results: ABG 10/11/24 13:58 Specimen Type DESTINEE Sample Site Not entered VBG pH 7.44 H VBG pO2 60 H VBG HCO3 26 VBG Total CO2 27 VBG O2 Sat (Calc) 92 H VBG Base Excess 2 POC Mix VBG pCO2 Pt Tmp 38.1 L O2 Delivery Device Not entered Imaging Radiology Impression Chest X-Ray 10/11/24 13:34 IMPRESSION: There is mild cardiomegaly without overt CHF. There is a 1.4 cm density overlying the right lower hilum. Chest CT correlation is recommended. Reading Location: [facility] Assessment & Plan Assessment/Plan (1) Hyperglycemia due to type 2 diabetes mellitus: (2) UTI (urinary tract infection): (3) Weakness: PLAN: Plan Patient is an 89-year-old female who presented [facility] ED on 10/11/2024 with worsening hyperglycemia, UTI symptoms and fatigue with weakness. 1. Poorly controlled type 2 diabetes mellitus with hyperglycemia ? Admit under inpatient status to PCU. Has had significantly worsened diabetes over the past few months, see HPI for further details. In short, A1c worsened from 8.8% in June to 12% on 09/19. Repeat A1c 13.2% on admit. Presented with blood glucose 549. Mild anion gap elevation and beta-hydroxybutyrate 0.8, not in DKA. 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 Will treat with Lantus 20 units twice daily and Humalog 12 units with meals plus sliding scale insulin; suspect this regimen may need to be increased for adequate blood sugar control. Holding home Ozempic and Jardiance. 2. UTI with concern for pyelonephritis ? UA with 500 leukocyte esterase, positive nitrites, 1+ bacteria, 3+ yeast on admit. No fever/chills or systemic symptoms but patient did report right flank pain. Renal/bladder ultrasound ordered for further evaluation. Will treat with IV ceftriaxone and also give 1 dose of fluconazole 150 mg for yeast infection. 3. Generalized weakness ? PT/OT/case management consulted. Presume secondary to uncontrolled diabetes with mild dehydration and UTI as above. Treatment as above. Does live at home alone. Appreciate therapy recommendations. 4. Mild creatinine elevation in setting of CKD stage III ? Follows with outpatient neurology. Baseline creatinine 1.3-1.4. Creatinine 1.81 on admit, improved to 1.63 on recheck in the ED after 1 L of IV fluids. Will give another 1 L of IV fluids over several hours this evening. Follow-up a.m. BMP and monitor urine output. 5. Abnormal chest x-ray ? Chest x-ray showed a 1.4 cm density overlying the right lower hilum. CT chest obtained for further evaluation with read currently pending, will follow up. Chronic medical conditions: ? Chronic macrocytic anemia: Hemoglobin 9.4, MCV 110 on admit. Baseline hemoglobin around 10. Will update iron studies with ferritin, folate and vitamin B12 labs at this time. ? History of CAD with stenting, hypertension, hyperlipidemia: Follows with cardiology. Stenting was done back in 2011. Normotensive to mildly hypotensive on admit and in normal sinus rhythm. Given the slightly low blood pressure as well as mild creatinine elevation as above, will hold home amlodipine and Lasix for now. Will decrease Coreg dose to 6.25 mg twice daily. Continue home aspirin, statin and nitrate. ? Hypothyroidism: Continue home Synthroid. ? GERD: Continue home PPI. ? Depression: Continue home citalopram. DVT prophylaxis: Heparin subcu CODE STATUS: DNR-CCA, okay to intubate Expected disposition: TBD Total clinical time spent by myself addressing the patient's medical issues, reviewing all the data, and collaborating with patient's care team: 75 minutes. Charges/Coding Visit Charges Inpatient E&M: 45613 Init Hosp L3
--- NOTE | 2024-10-11 16:30 | CT_ITS ---
PROCEDURE: CHEST WITHOUT CONTRAST 10/11/2024 REASON FOR EXAM: LUNG MASS ON CXR TECHNIQUE: Chest CT without contrast. Coronal and Sagittal reconstruction series were provided. One or more dose reduction techniques were used (e.g., Automated exposure control, adjustment of the mA and/or kV according to patient size, use of iterative reconstruction technique RADIATION DOSE SUMMARY: CTDlvol: 8.65 mGy DLP: 291.85 mGycm COMPARISON: Chest x-ray earlier today 10/11/2024. FINDINGS: LUNGS/PLEURA: No pulmonary mass lesion or suspicious focal nodules. Aforementioned density in the right infrahilar region is likely an en face vessel. No confluence airspace consolidation. No pneumothorax or pleural effusion. Bibasilar scattered reticular/discoid atelectasis versus scarring. Diffuse bilateral interlobular septal thickening compatible with interstitial edema. Central airways are patent. MEDIASTINUM/NODES: No mass lesion. Evaluation of the sanchez is somewhat limited without IV contrast. No suspicious enlarged mediastinal lymph nodes. No axillary lymphadenopathy. HEART: Mildly enlarged. Advanced coronary artery calcifications. No pericardial effusion. THORACIC AORTA: Normal in course and caliber, with moderate atherosclerotic disease. UPPER ABDOMEN: Atrophic kidneys likely reflecting CKD/ESRD. No hydronephrosis. Probable gastric diverticulum at the posterior stomach fundus. BONES: No aggressive osseous lytic or blastic lesion. Moderate-advanced multilevel degenerative changes of the visualized spine. Mild bilateral glenohumeral joint arthrosis. CT/Chest without Contrast IMPRESSION: No pulmonary mass lesion or thoracic lymphadenopathy. Mild cardiomegaly with interstitial pulmonary edema. No pleural effusion. Reading Location: [id number]
--- NOTE | 2024-10-11 16:39 | CASEMGMT ---
Care Management Face to Face with patient for initial transition planning/care coordination assessment in the ED.? This tag writer introduced self and role at [facility]. Patient alert and oriented. Patient willing to participate in assessment and is able to answer all questions appropriately.? Care providers, pharmacy, and demographics verified. Admitting Diagnosis: Hyperglycemia Other diagnosis history: ?DM2, HTN, Hypothyroidism, CKD PCP: Alfredo Specialists: ?Arely, Podiatry; Ulises, Medical Representative; Issac, Cardiology Preferred [facility]acy: [facility] Insurance: ?Medicare Prescription Benefit: ?yes Living Will/HPOA: ?None done, may want to complete while admitted LNOK: Daughter and son Living Arrangements: ?Patient lives alone in a one story? home, no steps to enter.? Independent with ADLs, Daughter assists with IADLs.? Transportation: ?mainly daughter, patient drives short distances DME: walker, cane, grab bars, glucometer, blood pressure cuff HHC: ?None SNF/Rehab: ?None Community Resources: ?None Behavioral Health History: ?None Patient goals: Patient wishes to discharge home, denies need for home health care at this time. Patient denies any further needs or concerns at this time. Disposition Plan: admission to acute; RN CM/SW to follow for discharge planning needs that may arise. Catherine Lopez, DIE CASTER, SEED BUYER
[2024-10-11 16:42] LABS: Anion Gap 14 (5-15); BUN 51 mg/dL (4-19); BUN/Creat Ratio 31.5 RATIO (10-20); Calcium,Total 8.4 mg/dL (7.6-11.0); Carbon Dioxide 21.2 mmol/L (21.0-32.0); Chloride 99 mmol/L (98-108); Glucose 336 mg/dL (70-99); Potassium 3.4 mmol/L (3.3-5.1)
--- NOTE | 2024-10-11 17:14 | US_ITS ---
PROCEDURE: KIDNEY AND BLADDER 10/11/2024 REASON FOR EXAM: UTI W/ R FLANK PAIN, EVAL FOR PYELO TECHNIQUE: KIDNEY AND BLADDER COMPARISON: None. FINDINGS: Bilateral kidneys are mildly atrophic in size, particularly on the left with areas of cortical thinning and parenchymal echogenicity compatible with chronic medical renal disease. No hydronephrosis or shadowing renal calculi on either side. No perinephric fluid collection is seen. Vascularity of the bilateral kidneys bilaterally appears grossly normal with no discrete hypovascular region. Right kidney measures 9.1 x 4.2 x 4 cm. Left kidney measures 6.8 x 3.5 x 3.5 cm. Urinary bladder is mildly distended, with prevoid bladder volume measuring 487 cc. Mild circumferential wall thickening and trabeculation may reflect cystitis, versus hypertrophy. Ureteral jets are not definitively seen on either side on this exam. No stone or echogenic debris within the bladder is seen. US/Kidney and Bladder IMPRESSION: Mildly atrophic echogenic kidneys, more so on the left likely reflecting chroni c medical renal disease. No shadowing renal calculi or hydronephrosis on either side. No specific findings to indicate pyelonephritis, however this is primarily a cl inical diagnosis and ultrasound has limited sensitivity/utility for this diagnosis. Correlate with laboratory/urinalysis f indings. Mild thickening of the urinary bladder wall may reflect cystitis. Reading Location: [id number]
[2024-10-11] MEDS: 0.9% Saline Lock 10 ML Syringe IV (17:46)
[2024-10-11] MEDS: 0.9% Normal Saline (1000mL) 1,000 ML 100 ML IV (17:46)
[2024-10-11 18:29] LABS: Ferritin 493 ng/mL (22-378); Iron 69 ug/dL (50-170); Iron Binding Capacity,Unsat 155 ug/dL (228-428); Vitamin B12 > 4000 pg/mL (180-914)
[2024-10-11] MEDS: Potassium Chloride Oral Tablet 20 MEQ 40 MEQ PO (18:36)
[2024-10-11 19:26] LABS: Iron Binding Capacity,Total 224 ug/dL (250-450)
--- OUTSIDE RECORDS SUMMARY | 2024-10-11 20:59 | XMS RPT_ITS | CCD ---
Author Organization [facility] Care Team Providers Care Folding Machine Setter Name Role Phone Frank Fuentes MD Primary Care Provider Issac [place] S Unavailable Dr. Koko Fuentes Primary Care Provider Dr. Koko Fuentes Referring Provider Escobar PRESS BOX CUSTODIAN, GUSTAVO De La Cruz Attending Provider Frank Fuentes MD Primary Care Provider Issac, Jackson S Unavailable Issac, Jackson S Unavailable Issac PATINO Jackson S Unavailable Dr. Koko Fuentes Primary Care Provider [phone] Dr. Koko Fuentes Referring Provider Escobar ANDERSON, GUSTAVO De La Cruz Attending Provider Dr. Koko Fuentes Primary Care Provider Dr. Vimal Bang Emergency Provider Dr. Joceline Montgomery Admit Provider Dr. Joceline Montgomery Attending Provider Dr. Joceline Montgomery Other Provider Dr. Shahnaz Reeves Attending Provider Dr. Kyle Culver Attending Provider Dr. Kyle Culver Other Provider Dr. Shahnaz Reeves Other Provider [facility] Un[facility] Brittany Mayo RN Unavailable NIKOLAY OLIVA Admitting Unavailable NIMESH PHILLIPS Consulting Unavailable BURSLEY, CHRISTOPHER B Primary Care Unavailab VIMAL Levy Attending Unavailable BURSLEY, CHRISTOPHER B Primary Care Unavailab LAURITA Robles Referring Unavailable NIMESH PHILLIPS Attending Unavailable [place], [facility] Referring Un available JERAD FUENTESOPHER B Primary Care Unavailab Frank Griffith MD Primary Care Provider Podlogar AIRCRAFT HYDRAULIC EQUIPMENT MECHANIC.CAR REFINISHER, Sarah Unavailable Knoble AIRCRAFT HYDRAULIC EQUIPMENT MECHANIC.CAR REFINISHER, Raquel Unavailable [place]le AIRCRAFT HYDRAULIC EQUIPMENT MECHANIC.CAR REFINISHER, Raquel Unavailable Cesar Crouch RN Unavailable Alfredo PATINO, Dr. Sutherland Primary Care Provider Dr. Koko Fuentes MD Referring Provider David Galindo Attending Provider Dr. Safia Montgomery DO Attending Provider Dr. Safia Montgomery DO Referring Provider Knoble AIRCRAFT HYDRAULIC EQUIPMENT MECHANIC.CAR REFINISHER, Raquel Unavailable [place] AIRCRAFT HYDRAULIC EQUIPMENT MECHANIC.RICHARD, Raquel Unavailable Bursley, Koko Primary Care Unavailable Bursley, Koko Referring Unavailable David Walter NP Attending Unavailable Safia Montgomery Referring Unavailable Bursley, Koko Primary Care Unavailable Safia Montgomery Attending Unavailable Safia Montgomery Attending Unavailable Safia Montgomery Referring Unavailable Bursley, Koko Primary Care Unavailable Bursley, Koko Primary Care Unavailable Safia Montgomery Attending Unavailable Escobar PRESS BOX CUSTODIAN, Dorothy Attending Unavailable Bursley, Koko Primary Care Unavailable Escobar PRESS BOX CUSTODIAN, Dorothy Referring Unavailable Bursley, Koko Primary Care Unavailable Jose Manuel Mendiola Attending Unavailable Bursley, Koko Referring Unavailable Escobar PRESS BOX CUSTODIAN, Dorothy Attending Unavailable Bursley, Koko Primary Care Unavailable Escobar PRESS BOX CUSTODIAN, Dorothy Attending Unavailable Escobar PRESS BOX CUSTODIAN, Dorothy Referring Unavailable Bursley, Koko Primary Care Unavailable Escobar PRESS BOX CUSTODIAN, Dorothy Attending Unavailable Escobar PRESS BOX CUSTODIAN, Dorothy Referring Unavailable Bursley, Koko Primary Care Unavailable Jesus RN, Cesar Unavailable ARELY, KAROLINA Attending Unavailable TESTRADIEGO, KAROLINA Referring Unavailable FRANK FUENTES Primary Care Unavailab le BURSLEY, FRANK Booth Primary Care Unavailab le BURSLEY, FRANK Booth Referring Unavailab le BURSLEY, FRANK Booth Primary Care Unavailab le BURSLEY, FRANK Booth Attending Unavailab le TESTRAKE, KAROLINA Attending Unavailable TESTRAKE, KAROLINA Referring Unavailable FRANK FUENTES Primary Care Unavailab le BURSLEY, FRANK Booth Primary Care Unavailab le BURSLEY, FRANK Booth Attending Unavailab le BURSLEY, FRANK Booth Primary Care Unavailab rosi PODLOGSARAH ALANIZ Attending Unavailable FRANK FUENTES Primary Care Unavailab le BURSLEY, FRANK Booth Attending Unavailab le BURSLEY, FRANK Botoh Primary Care Unavailab le BURSLEY, FRANK Booth Referring Unavailab le BURSLEY, FRANK Booth Primary Care Unavailab le TESTRAKE, KAROLINA Attending Unavailable FRANK FUENTES Attending Unavailab le BURSLEY, FRANK Booth Primary Care Unavailab le BURSLEY, FRANK Booth Primary Care Unavailab le BURSLEY, FRANK Booth Referring Unavailab le TESTRAKE, KAROLINA Referring Unavailable TESTRAKE, KAROLINA Attending Unavailable FRANK FUENTES Primary Care Unavailab le BURSLEY, FRANK Booth Primary Care Unavailab le BURSLEY, FRANK Booth Attending Unavailab le ALFREDO, FRANK Booth Primary Care Unavailab le BURSLEY, FRANK Booth Referring Unavailab le Bursley , Dr. Sutherland Primary Care Provider Dr. Darrel Damico DO Emergency Provider Dr. Kyle Culver DO Admit Provider Dr. Kyle Culver DO Attending Provider Allergies Allergy Classification Reported Allergen(s) Allergy Type Date of Onset Reaction(s) Facility (20 sources) gabapentin; Translations: [GABAPENTIN] Drug Allergy 8 Other: See Comments [facility] Work Phone: (20 sources) quinapril; Translations: [QUINAPRIL HCL] Drug Allergy 5 Cough [facility] Comment on above: cough (20 sources) Sulfonamides (Antibiotic); Translations: [SULFA (SULFONAMIDE ANTIBIOTICS)] Drug Intolerance 5 [facility] (8 sources) Sulfonamides (Antibiotic) Allergy to substance 2 Rash [facility] (20 sources) atorvastatin; Translations: [ATORVASTATIN] Drug Allergy 6 Myalgia [facility] (20 sources) benzonatate; Translations: [BENZONATATE] Drug Allergy 6 [facility] (20 sources) Simvastatin; Translations: [SIMVASTATIN] Drug Allergy 6 Other: See Comments [facility] (1 source) quinapril Drug Allergy 5 [facility] (1 source) Sulfonamides (Antibiotic) Drug allergy (disorder) 5 [facility] Medications Current Medications Medication Drug Class(es) Dates Sig (Normalized) Sig (Original) acetaminophen 500 mg oral capsule (20 sources) Start: 02-19-2023 take 2 capsules by mouth every eight hours as needed for pain Acetaminophen 500 mg capsule Active 1000 mg PO EVERY 8 HOURS NEEDED as needed for fever or pain February 19, 2023 1:00am Start: 02-19-2023 take 1 capsule by mo [facility] every six hours as needed Acetaminophen 500 mg capsule Active 500 mg PO EVERY 6 HOURS as needed February 19, 2023 1:00am Start: 02-08-2023 take 2 tablets by mo ut every eight hours as needed acetaminophen (TYLENOL) 500 mg tablet Take 2 tablets by mouth every 8 hours as needed for pain. 02/08/2023 Active Comment on above: Take 2 tablets by mo uth every 8 hours as needed for pain. amLODIPine 2.5 mg oral tablet (20 sources) Dihydropyridine Calcium Channel Karin Start: 5 take 2.5 mg by mouth once daily Amlodipine (Norvasc) 5 mg tablet Active 2.5 mg PO DAILY April 27, 2024 12:23pm Start: 06-23-2023 End: 12-11-2024 take 1 tablet by mouth once daily amLODIPine (NORVASC) 2.5 mg tablet Take 1 tablet by mouth once daily. 90 tablet 1 06/14/2024 12/11/2024 Active Start: 02-15-2023 End: 10-17-2023 take 0.5 tablet by mouth once daily amLODIPine (NORVASC) 5 mg tablet Take 0.5 tablets by mouth once daily. 02/15/2023 04/20/2023 Discontinued Start: 11-09-2018 End: 04-27-2024 take 1 tablet by mouth once daily Amlodipine (Norvasc) 5 mg tablet Discontinued 5 mg PO DAILY 90 3 March 30, 2019 3:04pm April 27, 2024 12:25pm Comment on above: Take 1 tablet by jamie once daily. Take 0.5 tablets by mouth once daily. amoxicillin 875 mg / clavulanate 125 mg oral tablet (2 sources) Penicillin-class Antibacterial Start: 3 End: 3 take 1 tablet by mouth twice daily amoxicillin-clavul anic acid (AUGMENTIN) 875-125 mg per tablet Indications: Dog bite, initial encounter Take 1 tablet by mouth twice daily for 10 days. 20 tablet 0 06/22/2022 07/02/2022 Active Comment on above: Take 1 tablet by jamie twice daily for 10 days. aspirin 81 mg delayed release oral tablet (20 sources) Platelet Aggregation Inhibitor, Nonsteroidal Anti-inflammatory Drug Start: 4 take 1 tablet by mouth once daily Aspirin 81 mg tablet,delayed release (DR/EC) Active 81 mg PO DAILY@0800 30 0 September 14, 2023 11:28am Start: 08-18-2007 End: 02-19-2023 take 1 tablet by mouth once daily Aspirin 81 MG tablet Discontinued 81 mg PO DAILY@0800 January 02, 2015 12:00am February 19, 2023 2:16pm take 1 capsule by mo [facility] once daily aspirin 81 mg cap Take 81 mg by mouth once daily. Active Comment on above: Take one(1) tablet d aily. carvedilol 25 mg oral tablet (20 sources) alpha-Adrenergic Karin, beta-Adrenergic Karin Start: 5 End: 5 take 1 tablet by mouth twice daily carvedilol (COREG) 25 mg tablet Take 1 tablet by mouth two times a day. 180 tablet 1 08/21/2024 Active Comment on above: Take 1 tablet by jamie twice daily. cholecalciferol 0.025 mg oral capsule (20 sources) Vitamin D Start: take 1 capsule by mouth once daily Cholecalciferol, Vitamin D3, 1,000 unit cap Take 1 capsule by mouth once daily. 1 capsule 04/06/2017 Active Start: 01-02-2015 take 1 tablet by jamie once daily Cholecalciferol (Vitamin D3) 1,000 UNIT tablet Active 1000 U PO DAILY January 02, 2015 12:00am Comment on above: Take 1 capsule by mo [facility] once daily. citalopram 20 mg oral tablet (20 sources) Serotonin Reuptake Inhibitor Start: 01-02-2015 End: 06-13-2024 take 1 tablet by mouth once daily citalopram (CELEXA) 20 mg tablet Take 1 tablet by mouth once daily. 90 tablet 1 06/14/2024 Active Comment on above: Take 1 tablet by jamie once daily. Cranberry (20 sources) Non-Standardized Food Allergenic Extract, Non-Standardized Plant Allergenic Extract Start: 01-02-2015 take 1 capsule by mouth once daily Cranberry 500 MG capsule Active 500 mg PO DAILY January 02, 2015 12:00am Start: 01-02-2015 take 500 mg by mouth once dave y Cranberry Active 500 MG PO DAILY January 01, 2015 11:00pm Start: 01-02-2015 take 500 mg by mouth once dave y Cranberry Active 500 MG PO DAILY January 02, 2015 12:00am Start: 12-16-2011 take 1 tablet by jamie once daily Cranberry 500 mg cap Take 1 tablet by mouth once daily. 0 12/16/2011 Suspended Start: 12-16-2011 take 1 tablet by jamie once daily Cranberry 500 mg cap Take 1 tablet by mouth once daily. 0 12/16/2011 Active Comment on above: Take 1 tablet by jamie once daily. docusate sodium 50 mg / sennosides, alf 8.6 mg oral tablet (2 sources) Start: 023 End: 023 take 1 tablet by mouth twice daily senna-docusate (SENNA-S) 8.6-50 mg per tablet Take 1 tablet by mouth two times a day for 3 days. 6 tablet 0 02/08/2023 02/11/2023 Active Comment on above: Take 1 tablet by jamie th two times a day for 3 days. empagliflozin 10 mg oral tablet (15 sources) Sodium-Glucose Cotransporter 2 Inhibitor Start: End: take 1 tablet by mouth once daily at breakfast empagliflozin (JARDIANCE) 10 mg tablet Take 1 tablet by mouth daily with breakfast. 90 tablet 08/22/2024 11/20/2024 Active folic acid 1 mg oral tablet (20 sources) Start: End: take 2 tablets by mouth once daily folic acid 1 mg tablet Take 2 tablets by mouth once daily. 180 tablet 1 05/01/2024 10/28/2024 Active Start: 10-26-2022 End: 04-29-2024 take 2 tablets by mouth once daily folic acid 1 mg tablet Take 2 tablets by mouth once daily. 180 tablet 1 11/01/2023 04/29/2024 Active Start: 11-05-2020 End: 10-27-2021 take 2 tablets by mouth once daily folic acid 1 mg tablet Take 2 tablets by mouth once daily. 180 tablet 3 10/27/2021 Active Start: 01-02-2015 End: 08-22-2019 take 1 tablet by mouth twice daily Folic Acid 1 mg tablet Active 1 mg PO TWICE A DAY August 22, 2019 10:21am Comment on above: Take 2 tablets by mo [facility] once daily. furosemide 40 mg oral tablet (20 sources) Loop Diuretic Start: 02-15-2023 End: 03-02-2023 take 2 tablets by mouth once daily furosemide (LASIX) 20 mg tablet Take 2 tablets by mouth once daily. 90 tablet 1 02/15/2023 03/02/2023 Discontinued Start: 01-31-2023 End: 03-04-2025 take 1 tablet by mouth once daily furosemide (LASIX) 40 mg tablet Take 1 tablet by mouth once daily. 90 tablet 1 09/05/2024 03/04/2025 Active Start: 01-02-2015 End: 02-15-2023 take 1 tablet by mouth once daily Furosemide 20 MG tablet Discontinued 20 mg PO DAILY January 02, 2015 12:00am January 31, 2023 1:49pm Comment on above: Take 1 tablet by jamie once daily. Take 2 tablets by mo [facility] once daily. 3 ml insulin glargine 100 unt/ml pen injector (14 sources) Insulin Analog Start: 10-11-2024 Insulin Glargine (Lantus Solostar U-100 Insulin) 100 unit/mL (3 mL) insulin pen Active 38 U SC AT BEDTIME October 11, 2024 12:00am dm per family- if uncontrolled tomorrow (10/12/24) increase to 44 units Start: 10-09-2024 insulin glargi ne (LANTUS SOLOSTAR U-100 INSULIN) 100 unit/mL (3 mL) Indications: Type 2 diabetes mellitus with stage 3b chronic kidney disease, without long-term current use of insulin (HCC) Inject 38 units subcutaneously every night 10/09/2024 Active Start: 10-06-2024 End: 10-09-2024 insulin glargine (LANTUS KADEEM OSTAR U-100 INSULIN) 100 unit/mL (3 mL) Indications: Type 2 diabetes mellitus with stage 3b chronic kidney disease, without long-term current use of insulin (HCC) Inject 32 units subcutaneously every night 10/06/2024 10/09/2024 Discontinued Start: 10-04-2024 End: 01-02-2025 insulin glargine (LANTUS KADEEM OSTAR U-100 INSULIN) 100 unit/mL (3 mL) Indications: Type 2 diabetes mellitus with stage 3b chronic kidney disease, without long-term current use of insulin (HCC) Inject 26 Units subcutaneously daily at bedtime. 6 mL 2 10/04/2024 10/06/2024 Discontinued Start: 09-29-2024 End: 12-28-2024 insulin glargine (LANTUS KADEEM OSTAR U-100 INSULIN) 100 unit/mL (3 mL) Indications: Type 2 diabetes mellitus with stage 3b chronic kidney disease, without long-term current use of insulin (HCC) Inject 20 Units subcutaneously daily at bedtime. 6 mL 2 09/29/2024 10/04/2024 Discontinued (Adjust Sig - Block E-Cancel) Start: 09-26-2024 End: 12-25-2024 insulin glargine (LANTUS KADEEM OSTAR U-100 INSULIN) 100 unit/mL (3 mL) Indications: Type 2 diabetes mellitus with stage 3b chronic kidney disease, without long-term current use of insulin ([facility]) Inject 16 Units subcutaneously daily at bedtime. 6 mL 2 09/26/2024 09/29/2024 Discontinued Start: 09-26-2024 End: 09-26-2024 inject 10 [IU] by subcutaneous injection once daily at bedtime insulin glargine (LANTUS SOLOSTAR U-100 INSULIN) 100 unit/mL (3 mL) Indications: Type 2 diabetes mellitus with stage 3b chronic kidney disease, without long-term current use of insulin ([facility]) Inject 10 Units subcutaneously daily at bedtime. 3 mL 2 09/26/2024 09/26/2024 Discontinued 24 hr isosorbide mononitrate 60 mg extended release oral tablet (20 sources) Nitrate Vasodilator Start: 09-22-2022 End: 08-15-2024 take 1 tablet by mouth once daily isosorbide mononitrate ER (IMDUR) 60 mg 24 hr tablet Take 1 tablet by mouth once daily. 90 tablet 1 08/15/2024 Active Start: 06-29-2022 End: 09-21-2022 take 1 tablet by mouth once daily, then take 1 tablet by mouth every twenty-four hours Isosorbide Mononitrate 30 mg tablet extended release 24 hr Discontinued 30 mg PO DAILY 60 6 June 29, 2022 2:40pm September 21, 2022 10:42am Start: 06-29-2022 End: 06-29-2022 take 1 tablet by mouth once daily, then take 2 tablets by mouth every twenty-four hours Isosorbide Mononitrate 60 mg tablet extended release 24 hr Discontinued 30 mg PO DAILY June 29, 2022 2:20pm June 29, 2022 2:40pm Start: 01-23-2022 End: 06-29-2022 take 1 tablet by mouth once daily, then take 1 tablet by mouth every twenty-four hours Isosorbide Mononitrate 60 mg tablet extended release 24 hr Discontinued 60 mg PO DAILY 90 January 23, 2022 1:00am June 29, 2022 2:22pm Start: 10-20-2021 End: 09-22-2022 Isosorbide Mononitrate 30 mg tablet extended release 24 hr Discontinued 60 mg PO DAILY 90 January 02, 2022 3:43pm January 23, 2022 5:02pm Start: 11-09-2018 End: 01-02-2022 take 1 tablet by mouth once daily, then take 1 tablet by mouth every twenty-four hours Isosorbide Mononitrate 30 mg tablet extended release 24 hr Discontinued 30 mg PO DAILY 90 3 March 30, 2019 3:04pm January 02, 2022 3:43pm Comment on above: Take 1 tablet by jamie once daily. latanoprost 0.05 mg/ml ophthalmic solution (20 sources) Prostaglandin Analog Start: 01-02-2015 End: 04-04-2021 Latanoprost (Xalatan) 0.005 % drops Active 1 NMA OPHTHALMIC .daily qhs April 04, 2021 1:00am eye Start: 12-24-2004 take 1 drop(s) into the eye(s) once daily at bedtime XALATAN 0.005 % EYE DROPS Use 1 drop in both eyes daily at bedtime. 0 12/24/2004 Active Start: 12-24-2004 take 1 drop(s) into the eye(s) at bedtime XALATAN 0.005 % EYE DROPS one drop each eye at bedtme 0 12/24/2004 Active Comment on above: one drop each eye at bedtme levothyroxine sodium 0.075 mg oral tablet (20 sources) l-Thyroxine Start: 01-03-20 End: 08-01-19 take 1 tablet by mouth once daily levothyroxine (LEVOXYL) 75 mcg tablet Take 1 tablet by mouth once daily. 90 tablet 1 07/31/2024 Active Comment on above: Take 1 tablet by jamie once daily. mecobalamin 1 mg chewable tablet (20 sources) Start: 02-10-20 End: 02-10-20 take 1 tablet by mouth once daily mecobalamin, vitamin B12, 1,000 mcg chew Take 1 tablet by mouth once daily. 02/09/2023 Active Comment on above: Take by mouth. Take 1 tablet by jamie once daily. nitrofurantoin, macrocrystals 25 mg / nitrofurantoin, monohydrate 75 mg oral capsule (4 sources) Nitrofuran Antibacterial Start: 09-27-19 End: 10-02-19 take 1 capsule by mouth twice daily nitrofurantoin monohydrate and macrocrystal (MACROBID) 100 mg capsule Take 1 capsule by mouth two times a day for 5 days. 10 capsule 09/26/2024 10/01/2024 Active Start: 03-19-2022 End: 03-24-2022 take 1 capsule by mouth twice daily at mealtime nitrofurantoin monohydrate and macrocrystal (MACROBID) 100 mg capsule Take 1 capsule by mouth twice daily with meals for 5 days. 10 capsule 0 03/19/2022 03/24/2022 Active Comment on above: Take 1 capsule by [facility] twice daily with meals for 5 days. nitroglycerin 0.4 mg sublingual tablet (20 sources) Nitrate Vasodilator Start: 04-06-19 18 End: 06-18-19 nitroglycerin sublingual (NITROQUICK) 0.4 mg SL tablet Indications: ASHD (arteriosclerotic heart disease) Dissolve 1 tablet under the tongue as needed. DISSOLVE ONE(1) TABLET UNDER THE TOUNGUE NEEDED FOR CHEST PAIN,EVERY 5 MIN X3 25 tablet 1 06/17/2021 Active Comment on above: Dissolve 1 tablet un bette the tongue as needed. DISSOLVE ONE(1) TABLET UNDER THE TOUNGUE NEEDED FOR CHEST PAIN,EVERY 5 MIN X3 oxyCODONE hydrochloride 5 mg oral tablet (2 sources) Opioid Agonist Start: 02-09-20 End: 02-12-20 take 1 tablet by mouth every eight hours as needed oxyCODONE IR (ROXICODONE) 5 mg immediate release tablet Indications: Subdural hematoma (HCC) Take 0.5-1 tablets by mouth every 8 hours as needed for pain for up to 3 days. 9 tablet 0 02/08/2023 02/11/2023 Active Comment on above: Take 0.5-1 tablets b y mouth every 8 hours as needed for pain for up to 3 days. pantoprazole 40 mg delayed release oral tablet (20 sources) Proton Pump Inhibitor Start: 03-11-20 End: 09-05-19 take 1 tablet by mouth once daily before breakfast pantoprazole DR (PROTONIX) 40 mg tablet Take 1 tablet by mouth daily before breakfast. Take on empty stomach, 1/2 hr before meal. 90 tablet 1 09/05/2024 Active Start: 01-02-2015 End: 04-04-2021 take 2 tablets by mouth once daily Pantoprazole 20 MG tablet Discontinued 40 mg PO DAILY January 02, 2015 12:00am April 04, 2021 11:00am Start: 01-02-2015 End: 04-04-2021 take 40 mg by mouth once daily Pantoprazole Discontinu ed 40 MG PO DAILY January 01, 2015 11:00pm April 04, 2021 10:00am Comment on above: Take 1 tablet by jamie th daily before breakfast. Take on empty stomach, 1/2 hr before meal. potassium chloride 10 meq extended release oral tablet (20 sources) Start: 11-22-2023 End: 10-28-2024 take 1 tablet by mouth once daily at breakfast potassium chloride (K-TAB) 10 mEq tablet Take 1 tablet by mouth daily with breakfast. 90 tablet 1 05/01/2024 10/28/2024 Active Start: 03-02-2023 End: 11-20-2023 take 1 tablet by mouth once daily potassium chloride (K-TAB) 10 mEq tablet Take 1 tablet by mouth once daily. 90 tablet 1 05/24/2023 11/20/2023 Active Start: 01-31-2023 take 1 capsule by mo [facility] once daily Potassium Chloride 10 mEq capsule, extended release Active 10 meq PO DAILY 30 30 0 January 31, 2023 1:00am Comment on above: Take 10 mEq by mouth once daily. Take 1 tablet by jamie once daily. pravastatin sodium 80 mg oral tablet (20 sources) HMG-CoA Reductase Inhibitor Start: 01-03-20 End: 08-01-19 take 1 tablet by mouth once daily at bedtime pravastatin (PRAVACHOL) 80 mg tablet Indications: Mixed hyperlipidemia Take 1 tablet by mouth daily at bedtime. 90 tablet 1 07/31/2024 Active Comment on above: Take 1 tablet by jamie daily at bedtime. Semaglutide (2 sources) Start: 04-27-19 Semaglutide (Ozempic) 0.25 mg or 0.5 mg (2 mg/3 mL) pen injector Active 0.25 mg SC EVERY WEEK April 27, 2024 1:00am for 4 weeks semaglutide (OZEMPIC) 0.25 mg or 0.5 mg (2 mg/3 mL) pen (7 sources) Start: 12-29-19 End: 03-28-19 inject 0.25 mg by subcutaneous injection every week, then inject 0.5 mg by subcutaneous injection every week semaglutide (OZEMPIC) 0.25 mg or 0.5 mg (2 mg/3 mL) pen Indications: Type 2 diabetes mellitus with stage 3b chronic kidney disease, without long-term current use of insulin (HCC) Inject 0.25 mg subcutaneously one time a week for 30 days, THEN 0.5 mg one time a week. 9 mL 12/29/2023 03/28/2024 Active semaglutide (OZEMPIC) 2 mg/dose (8 mg/3 mL) pen injector (20 sources) Start: 06-28-19 End: 12-25-19 inject 2 mg by subcutaneous injection every week semaglutide (OZEMPIC) 2 mg/dose (8 mg/3 mL) pen injector Indications: Type 2 diabetes mellitus with stage 3b chronic kidney disease, without long-term current use of insulin (HCC) Inject 2 mg subcutaneously one time a week. 9 mL 1 06/27/2024 12/24/2024 Active sodium chloride 1000 mg oral tablet (2 sources) Start: 02-09-20 End: 02-12-20 take 1 tablet by mouth three times daily sodium chloride 1 gram tab Take 1 tablet by mouth three times a day for 8 doses. 8 tablet 0 02/08/2023 02/11/2023 Active Comment on above: Take 1 tablet by jamie th three times a day for 8 doses. vit C,S-Eq-ldvjg-lutein -zeaxan (PRESERVISION AREDS-2) 250-90-40-1 mg (20 sources) vit C,R-Oa-mruts-lutein-z eaxan (PRESERVISION AREDS-2) 250-90-40-1 mg Take 1 capsule by mouth two times a day with meals. Active vitamin b12 1 mg oral capsule (15 sources) Vitamin B12 Start: 05-22-19 take 1 capsule by mouth once daily Cyanocobalamin (Vitamin B-12) 1,000 mcg capsule Active 1000 ug PO DAILY May 21, 2022 1:00am Start: 01-02-2015 End: 11-09-2018 take 2 tablets by mouth once daily Cyanocobalamin (Vitamin B-12) 500 MCG tablet Discontinued 1000 ug PO DAILY@0800 January 02, 2015 12:00am November 09, 2018 11:08am Start: 01-02-2015 End: 11-09-2018 take 1000 ug by mouth once daily Cyanocobalamin (Vitamin B-12) Discontinued 1000 MCG PO DAILY@0800 January 01, 2015 11:00pm November 09, 2018 10:08am Vitamins A,C,K-Frsj-Dcdknk (Preservision Areds) 4,296 mcg-226 mg-90 mg capsule (5 sources) Start: 09-21-2022 Vitamins A,C,E -Zinc-Copper (Preservision Areds) 4,296 mcg-226 mg-90 mg capsule Active 1 NMA PO TWICE A DAY September 21, 2022 12:00am Start: 09-21-2022 take 1 capsule by mo ut twice daily Vitamins A,C,Z-Arnv-Zgyooc (Preservision Areds) 4,296 mcg-226 mg-90 mg capsule Active 1 CAP PO TWICE A DAY September 20, 2022 11:00pm Start: 09-21-2022 take 1 capsule by [facility] twice daily Vitamins A,C,M-Nzxt-Fixlhx (Preservision Areds) 4,296 mcg-226 mg-90 mg capsule Active 1 CAP PO TWICE A DAY September 21, 2022 12:00am Completed/Discontinued Medications Medication Drug Class(es) Dates Sig (Normalized) Sig (Original) carbamide peroxide 65 mg/ml otic solution (6 sources) Start: 02-15-2023 End: 02-19-2023 carbamide peroxide (DEBROX) 6.5 % otic solution Use 5 Drops in both ears two times a day for 4 days. 15 mL 02/15/2023 02/19/2023 Comment on above: Use 5 Drops in both ears two times a day for 4 days. ciclopirox 7.7 mg/ml topical lotion (9 sources) Start: 08-24-2018 End: 08-22-2019 Ciclopirox (Loprox (As Olamine)) 0.77 % suspension Discontinued 1 NMA TOPICAL AT BEDTIME August 24, 2018 12:00am August 22, 2019 10:20am Start: 08-24-2018 End: 08-22-2019 Ciclopirox (Loprox (As Olami ne)) 0.77 % suspension Discontinued 1 APPLIC TOPICAL AT BEDTIME August 23, 2018 11:00pm August 22, 2019 9:20am clopidogrel 75 mg oral tablet (20 sources) [id number] Platelet Inhibitor Start: 01-02-2015 End: 02-19-2023 take 1 tablet by mouth once daily Clopidogrel 75 MG tablet Discontinued 75 mg PO DAILY January 02, 2015 12:00am February 19, 2023 2:16pm Comment on above: Take 1 tablet by jamie th once daily. glipiZIDE 10 mg oral tablet (20 sources) Sulfonylurea Start: 09-24-2023 End: 10-28-2024 take 1 tablet by mouth twice daily before mealtime glipiZIDE (GLUCOTROL) 10 mg tablet Indications: Type 2 diabetes mellitus without complication, without long-term current use of insulin ([facility]) Take 1 tablet (10 mg) by mouth two times a day before meals. 180 tablet 1 05/01/2024 09/26/2024 Discontinued (Course of therapy completed) Start: 06-29-2023 End: 10-11-2024 take 2 tablets by mouth twice daily Glipizide (Glucotrol) 5 mg tablet Discontinued 10 mg PO TWICE A DAY September 14, 2023 11:14am October 11, 2024 4:27pm Start: 08-22-2018 End: 09-14-2023 take 1 tablet by mouth twice daily Glipizide (Glucotrol) 5 mg tablet Discontinued 5 mg PO TWICE A DAY August 24, 2018 11:17am September 14, 2023 11:15am Comment on above: Take 1 1/2 tablets P O in the morning and 1 tablet PO at night. Take 2 tablets PO in the morning and 1 tablet PO at night. glyBURIDE 3 mg oral tablet (9 sources) Sulfonylurea Start: 01-02-2015 End: 08-22-2018 Glyburide Micronized 3 MG tablet Discontinued 1.5 mg PO DAILY@08January 02, 2015 12:00am August 22, 2018 10:13pm Start: 01-02-2015 End: 08-22-2018 take 1.5 mg by mouth once daily Glyburide Micronized Discontinued 1.5 MG PO DAILY@0800 January 01, 2015 11:00pm August 22, 2018 9:13pm irbesartan 150 mg oral tablet (20 sources) Angiotensin 2 Receptor Karin Start: 08-22-2019 End: 04-02-2020 take 1 tablet by mouth once daily Irbesartan 150 mg tablet Discontinued 150 mg PO DAILY 90 3 August 22, 2019 10:23am April 02, 2020 12:33pm Start: 11-09-2018 End: 08-22-2019 take 150 mg by mouth once daily Irbesartan Discontinue d 150 MG PO DAILY November 09, 2018 10:50am August 22, 2019 9:19am Start: 01-02-2015 End: 08-22-2019 take 1 tablet by mouth once daily Irbesartan 300 mg tablet Discontinued 150 mg PO DAILY November 09, 2018 11:50am August 22, 2019 10:19am metFORMIN hydrochloride 850 mg oral tablet (9 sources) Biguanide Start: 01-02-2015 End: 08-22-2018 take 1 tablet by mouth twice daily at mealtime Metformin 850 MG tablet Discontinued 850 mg PO TWICE DAILY WITH MEALS January 02, 2015 12:00am August 22, 2018 10:15pm OZEMPIC 0.25 mg or 0.5 mg (2 mg/3 mL) pen (2 sources) Start: 03-22-2024 End: 03-30-2024 inject 0.25 mg by subcutaneous injection every week, then inject 0.5 mg by subcutaneous injection every week OZEMPIC 0.25 mg or 0.5 mg (2 mg/3 mL) pen INJECT 0.25 MG SUBCUTANEOUSLY ONCE A WEEK FOR A MONTH, THEN INJECT 0.5MG ONCE A WEEK THEREAFTER 03/22/2024 03/30/2024 Discontinued Start: 03-22-2024 inject 0.25 mg by davis bcutaneous injection every week, then inject 0.5 mg by subcutaneous injection every week OZEMPIC 0.25 mg or 0.5 mg (2 mg/3 mL) pen INJECT 0.25 MG SUBCUTANEOUSLY ONCE A WEEK FOR A MONTH, THEN INJECT 0.5MG ONCE A WEEK THEREAFTER 03/22/2024 Active semaglutide (OZEMPIC) 1 mg/dose (4 mg/3 mL) pen (5 sources) Start: 06-02-2024 End: 06-27-2024 inject 1 mg by subcutaneous injection every week semaglutide (OZEMPIC) 1 mg/dose (4 mg/3 mL) pen Indications: Type 2 diabetes mellitus with stage 3b chronic kidney disease, without long-term current use of insulin (HCC) Inject 1 mg subcutaneously one time a week. 9 mL 1 06/02/2024 06/27/2024 Discontinued Start: 06-02-2024 End: 11-29-2024 inject 1 mg by subcutaneous injection every week semaglutide (OZEMPIC) 1 mg/dose (4 mg/3 mL) pen Indications: Type 2 diabetes mellitus with stage 3b chronic kidney disease, without long-term current use of insulin (HCC) Inject 1 mg subcutaneously one time a week. 9 mL 1 06/02/2024 11/29/2024 Active Start: 03-30-2024 End: 04-29-2024 inject 1 mg by subcutaneous injection every week semaglutide (OZEMPIC) 1 mg/dose (4 mg/3 mL) pen Indications: Type 2 diabetes mellitus with stage 3b chronic kidney disease, without long-term current use of insulin (HCC) Inject 1 mg subcutaneously one time a week. 3 mL 03/30/2024 04/29/2024 Active SITagliptin 50 mg oral tablet (20 sources) Dipeptidyl Peptidase 4 Inhibitor Start: 08-22-2018 End: 10-11-2024 take 1 tablet by mouth once daily Sitagliptin Phosphate (Januvia) 50 mg tablet Discontinued 50 mg PO DAILY August 22, 2018 12:00am October 11, 2024 4:26pm Comment on above: Take 1 tablet by jamie th once daily. traMADol hydrochloride 50 mg oral tablet (9 sources) Opioid Agonist Start: 01-02-2015 End: 08-22-2018 take 1 tablet by mouth twice daily as needed for pain Tramadol 50 MG tablet Discontinued 50 mg PO TWICE DAILY NEEDED as needed for Pain January 02, 2015 12:00am August 22, 2018 10:16pm Problems Active Problems Problem Classification Problem Date Documented Date Episodic/Chronic Acquired foot deformities (20 sources) Acquired hallux valgus; Translations: [Hallux valgus (acquired), unspecified foot] Onset: 9 02-13-2009 Chronic Acute and unspecified renal failure (4 sources) Acute renal failure syndrome; Translations: [Acute kidney failure, unspecified] 01-28-2023 Episodic Chronic kidney disease (20 sources) Chronic kidney disease stage 4; Translations: [Chronic kidney disease, stage 4 (severe)] Onset: 2 Resolved: 4 Chronic Chronic kidney disease (2 sources) Chronic kidney disease; Translations: [Hypertensive kidney disease with stage 3b chronic kidney disease (HCC)] Onset: 2 Conditions associated with dizziness or vertigo (3 sources) Dizziness; Translations: [Dizziness and giddiness] Onset: 4 09-15-2023 Episodic Congestive heart failure; nonhypertensive (6 sources) Acute on chronic diastolic heart failure; Translations: [Acute on chronic diastolic (congestive) heart failure] 01-29-2023 Chronic Coronary atherosclerosis and other heart disease (20 sources) Coronary arteriosclerosis; Translations: [Atherosclerotic heart disease of [place] coronary artery without angina pectoris] Onset: 6 Resolved: 7 Chronic Deficiency and other anemia (20 sources) Anemia; Translations: [Anemia, unspecified] 09-29-2016 Episodic Deficiency and other anemia (3 sources) Chronic anemia; Translations: [Anemia, unspecified] 01-29-2023 Episodic Deficiency and other anemia (1 source) Anemia, unspecified; Translations: [Anemia, unspecified] 01-31-2023 Episodic Diabetes mellitus with complications (20 sources) Type 2 diabetes mellitus; Translations: [Type 2 diabetes mellitus with diabetic chronic kidney disease] Onset: 5 Resolved: 0 Chronic Diabetes mellitus without complication (19 sources) Type 2 diabetes mellitus without complication; Translations: [Type 2 diabetes mellitus without complications] Onset: 5 Chronic Diabetes mellitus without complication (1 source) Diabetes mellitus without complication; Translations: [Type 2 diabetes mellitus with stage 3b chronic kidney disease, without long-term current use of insulin ([facility])] Onset: 2 Diseases of white blood cells (4 sources) Leukocytosis; Translations: [Elevated white blood cell count, unspecified] 01-29-2023 Chronic Disorders of lipid metabolism (20 sources) Mixed hyperlipidemia; Translations: [Mixed hyperlipidemia] Onset: 5 Chronic E Codes: Natural/environment (1 source) Dog bite - wound; Translations: [Bitten by dog, initial encounter] Episodic E Codes: Place of occurrence (1 source) Unspecified place in unspecified non-institutional (private) residence as the place of occurrence of the external cause; Translations: [Fall in home, initial encounter] Onset: 5 Episodic Esophageal disorders (20 sources) Gastroesophageal reflux disease; Translations: [Gastro-esophageal reflux disease without esophagitis] Onset: 5 01-23-2005 Chronic Essential hypertension (20 sources) Essential hypertension; Translations: [Essential (primary) hypertension] Onset: 6 Chronic Hypertension with complications and secondary hypertension (20 sources) Hypertensive renal disease; Translations: [Hypertensive chronic kidney disease with stage 1 through stage 4 chronic kidney disease, or unspecified chronic kidney disease] Onset: 2 06-13-2021 Chronic Malaise and fatigue (10 sources) Fatigue; Translations: [Other fatigue] Episodic Mood disorders (20 sources) Recurrent major depression in full remission; Translations: [Major depressive disorder, recurrent, in full remission] Onset: 2 06-13-2021 Chronic Nutritional deficiencies (2 sources) Vitamin D deficiency; Translations: [Vitamin D deficiency, unspecified] Onset: 5 07-11-2024 Chronic Other aftercare (1 source) Post-discharge follow-up; Translations: [Encounter for follow-up examination after completed treatment for conditions other than malignant neoplasm] 02-15-2023 Episodic Other circulatory disease (1 source) Respiratory crackles; Translations: [Other specified symptoms and signs involving the circulatory and respiratory systems] 02-16-2023 Episodic Other circulatory disease (2 sources) Decreased breath sounds; Translations: [Other specified symptoms and signs involving the circulatory and respiratory systems] 09-22-2023 Episodic Other circulatory disease (1 source) Low blood pressure; Translations: [Hypotension, unspecified] 09-26-2024 Episodic Other circulatory disease (1 source) Hypotension, unspecified; Translations: [Hypotension, unspecified hypotension type] Onset: 5 Episodic Other connective tissue disease (20 sources) Swelling of lower limb; Translations: [Other specified soft tissue disorders] 04-06-2017 Episodic Other connective tissue disease (10 sources) Pain of toe of right foot; Translations: [Pain in right toe(s)] Episodic Other connective tissue disease (10 sources) Pain of toe of left foot; Translations: [Pain in left toe(s)] Episodic Other connective tissue disease (1 source) Pain in right toe(s); Translations: [Pain in toe of right foot] Onset: 5 Episodic Other connective tissue disease (1 source) Pain in left toe(s); Translations: [Pain in toe of left foot] Onset: 5 Episodic Other diseases of kidney and ureters (1 source) Secondary hyperparathyroidism of renal origin; Translations: [Secondary hyperparathyroidism of renal origin] Onset: 4 Chronic Other ear and sense organ disorders (1 source) Impacted cerumen of bilateral ears; Translations: [Impacted cerumen, bilateral] 02-15-2023 Episodic Other hereditary and degenerative nervous system conditions (1 source) Impaired cognition; Translations: [Mild cognitive impairment, so stated] 07-11-2024 Chronic Other hereditary and degenerative nervous system conditions (1 source) Mild cognitive impairment, so stated; Translations: [Mild cognitive impairment] Onset: 5 Chronic Other lower respiratory disease (5 sources) Dyspnea on exertion; Translations: [Other forms of dyspnea] 06-29-2022 Episodic Other screening for suspected conditions (not mental disorders or infectious disease) (4 sources) Electrocardiogram abnormal; Translations: [Abnormal electrocardiogram [ECG] [EKG]] 01-28-2023 Episodic Other skin disorders (1 source) Actinic keratosis; Translations: [Actinic keratosis] Episodic Other skin disorders (3 sources) Callosity; Translations: [Corns and callosities] Episodic Residual codes; unclassified (1 source) Amnesia; Translations: [Other amnesia] 06-27-2024 Episodic Thyroid disorders (20 sources) Acquired hypothyroidism; Translations: [Hypothyroidism, unspecified] Onset: 5 Chronic Past or Other Problems Problem Classification Problem Date Documented Da te Episodic/Chronic Acquired foot deformities (20 sources) Acquired deformity of toe; Translations: [Other deformities of toe(s) (acquired), unspecified foot] Onset: 05-28-2010 05-28-2010 Episodic Acute cerebrovascular disease (20 sources) Hemorrhage into subarachnoid space of neuraxis; Translations: [Nontraumatic subarachnoid hemorrhage, unspecified] Onset: 02-06-2023 Resolved: 06-27-2024 02-07-2023 Chronic Biliary tract disease (20 sources) Calculus of gallbladder with acute cholecystitis; Translations: [Calculus of gallbladder with acute cholecystitis without obstruction] Onset: 02-24-2005 Resolved: 12-30-2016 12-30-2016 Episodic Coronary atherosclerosis and other heart disease (20 sources) Patient post percutaneous transluminal coronary angioplasty; Translations: [Coronary angioplasty status] Onset: 07-25-2009 07-25-2009 Episodic Comment on above: POBA-Mid LCx 09/23/18 E Codes: Fall (20 sources) Fall in (into) shower or empty bathtub, initial encounter; Translations: [Fall from other slipping, tripping, or stumbling] Onset: 02-08-2023 Episodic Fluid and electrolyte disorders (20 sources) Hyponatremia; Translations: [Hypo-osmolality and hyponatremia] Onset: 02-08-2023 02-08-2023 Episodic Gastritis and duodenitis (20 sources) Acute gastritis; Translations: [Acute gastritis without bleeding] Onset: 01-30-2005 Resolved: 12-30-2016 12-30-2016 Episodic Genitourinary symptoms and ill-defined conditions (20 sources) Retention of urine; Translations: [Retention of urine, unspecified] Onset: 08-13-2011 08-13-2011 Episodic Immunizations and screening for infectious disease (7 sources) Needs influenza immunization; Translations: [Encounter for immunization] Onset: 06-27-2024 Episodic Mycoses (20 sources) Onychomycosis; Translations: [Tinea unguium] Onset: 05-23-2013 05-23-2013 Episodic Other acquired deformities (20 sources) Acquired deformity of ankle AND/OR foot; Translations: [Unspecified acquired deformity of unspecified lower leg] Onset: 02-13-2009 Resolved: 12-30-2016 12-30-2016 Episodic Other connective tissue disease (20 sources) Falls; Translations: [Repeated falls] Onset: 04-08-2016 04-08-2016 Episodic Other gastrointestinal disorders (20 sources) Constipation; Translations: [Constipation, unspecified] Onset: 01-23-2005 01-23-2005 Episodic Other lower respiratory disease (2 sources) Other forms of dyspnea; Translations: [Other respiratory abnormalities] Onset: 09-22-2023 01-31-2023 Episodic Other nervous system disorders (20 sources) Abnormal gait; Translations: [Unspecified abnormalities of gait and mobility] Onset: 04-08-2016 04-08-2016 Episodic Crystal-; endo-; and myocarditis; cardiomyopathy (except that caused by tuberculosis or sexually transmitted disease) (20 sources) Cardiac tamponade; Translations: [Cardiac tamponade] Onset: 12-16-2011 12-16-2011 Episodic Residual codes; unclassified (1 source) Other amnesia; Translations: [Memory loss] Onset: 06-27-2024 Episodic Spondylosis; intervertebral disc disorders; other back problems (20 sources) Spinal stenosis of lumbar region; Translations: [Spinal stenosis, lumbar region without neurogenic claudication] Onset: 02-24-2005 02-24-2005 Episodic Superficial injury; contusion (20 sources) Contusion of left middle finger; Translations: [Contusion of left middle finger with damage to nail, initial encounter] Onset: 05-09-2013 Resolved: 12-30-2016 12-30-2016 Episodic Systemic lupus erythematosus and connective tissue disorders (20 sources) CRST syndrome; 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] Onset: 06-03-2010 Resolved: 10-14-2017 10-14-2017 Chronic Unclassified (9 sources) extensor tendon laceration left forearm 08-22-2018 Comment on above: extensor digitorum c ommunis (EDC) index finger tendon injury left distal forearm (zone 8) Urinary tract infections (20 sources) Lower urinary tract infectious disease; Translations: [Urinary tract infection, site not specified] Onset: 08-13-2011 Resolved: 12-30-2016 12-30-2016 Episodic Results Test Name Value Interpretation Reference Range Facility Absolute lymphocyte countOrd ered By: Darrel Damico on 10-11-2024 Lymphocytes Auto (Unsp spec) [#/Vol] 1.58 10*3/uL 0.83-4.51 [facility] Absolute neutrophil countOrd ered By: Darrel Damico on 10-11-2024 Neutrophils (Bld) [#/Vol] 7.8 10*3/uL High 2.0-7.7 [facility] Anion gap in Serum or Plasma Ordered By: Darrel Damico on 10-11-2024 Anion gap [Moles/Vol] 14 mmol/L 5-15 [facility] Automated lymphocyte count a s percentage of total leukocytesOrdered By: Darrel Damico on 10-11-2024 Lymphocytes/100 WBC Auto (Unsp spec) 15.0 % Low 19-41 [facility] BUN/creatinine ratioOrdered By: Darrel Damico on 10-11-2024 Urea nitrogen/Creatinine [Mass ratio] 31.5 mg/mg High 10-20 [facility] Basophil percentageOrdered B y: Darrel Damico on 10-11-2024 Basophils/100 WBC (Bld) 0.3 % 0-1 [facility] Beta-hydroxybutyrateOrdered By: Darrel Damico on 10-11-2024 Beta hydroxybutyrate [Mass/Vol] 0.8 mmol/L High 0.0-0.3 [facility] Bilirubin Test strip Ql (U)O rdered By: Darrel Damico on 10-11-2024 Bilirubin Ql (U) Negative Negative [facility] Bilirubin, totalOrdered By: Darrel Damico on 10-11-2024 Bilirubin [Mass/Vol] 0.64 mg/dL 0.00-1.30 [facility] CO2 (BldV) [Moles/Vol]Ordere d By: Darrel Damico on 10-11-2024 CO2 [Moles/Vol] 27 mmol/L 23-33 [facility] Carbon dioxide, total [Moles /volume] in Central venous bloodOrdered By: Darrel Damico on 10-11-2024 CO2 [Moles/Vol] 21.2 mmol/L 21.0-32.0 [facility] Chloride assayOrdered By: Katty Damico on 10-11-2024 Chloride [Moles/Vol] 99 mmol/L 98-108 [facility] Eosinophil percentageOrdered By: Darrel Damico on 10-11-2024 Eosinophils/100 WBC (Bld) 2.6 % 0-5 [facility] Erythrocyte distribution wid th ratioOrdered By: Darrel Damico on 10-11-2024 Erythrocyte distribution width (RBC) [Ratio] 16.0 % High 11.6-14.6 [facility] Erythrocyte distribution wid th standard deviationOrdered By: Darrel Taylor on 10-11-2024 Erythrocyte distribution width (RBC) [Ratio] 63.8 fl High 35.1-43.9 [facility] Glomerular filtration rate ( GFR) estimation/1.73 sq m using serum, plasma, or whole bOrdered By: Darrel Damico on 10-11-2024 GFR/1.73 sq M.predicted among non-blacks MDRD (S/P/Bld) [Vol rate/Area] 30 mL/min/{1.73_m2} Low >60 [facility] Comment on above: mL/min/1.73m2 CKD-EP I Creatinine Equation (2020) Glucose measurement at [facility] deOrdered By: Darrel Damico on 10-11-2024 Glucose [Mass/Vol] 408 mg/dL High 74-106 [facility] Comment on above: MANAGEMENT OF PATIEN T CARE PER NURSING PROTOCOL Hematocrit Auto (Bld) [Volum e fraction]Ordered By: Darrel Damico on 10-11-2024 Hematocrit (Bld) [Volume fraction] 27.3 % Low 37-47 [facility] Hemoglobin measurementOrdere d By: Darrel Damico on 10-11-2024 Hemoglobin (Bld) [Mass/Vol] 9.4 g/dL Low 12.0-15.0 [facility] Immature granulocytes/100 WB C Auto (Bld)Ordered By: Darrel Damico on 10-11-2024 Immature granulocytes/100 WBC (Bld) 0.600 % 0.0-0.9 [facility] Comment on above: IG% - Immature Granu locytes (promyelocytes, myelocytes and metamyelocytes) > 1% indicates that a LEFT SHIFT is Present. Ketones Test strip Ql (U)Ord ered By: Darrel Damico on 10-11-2024 Ketones Ql (U) Negative Negative [facility] Laboratory - Chemistry and C hemistry - challengeOrdered By: Darrel Damico on 10-11-2024 AST [Catalytic activity/Vol] 20 U/L <32 [facility] Comment on above: Hemolysis present, R esults could be affected. MCV (mean corpuscular volume ) determinationOrdered By: Darrel Damico on 10-11-2024 MCV (RBC) [Entitic vol] 110.1 fL High 81-99 [facility] Mean corpuscular hemoglobin (MCH) determinationOrdered By: Darrel Damico on 10-11-2024 MCH (RBC) [Entitic mass] 37.9 pg High 27.0-32.0 [facility] Mean corpuscular hemoglobin concentration (MCHC) determinationOrdered By: Darrel Damico on 10-11-2024 MCHC (RBC) [Mass/Vol] 34.4 g/dL 32-36 [facility] Mean platelet volume determi nationOrdered By: Darrel Damico on 10-11-2024 Platelet mean volume (Bld) [Entitic vol] 9.9 fL 6.2-12.0 [facility] Microscopic analysis of urin e for red blood cells (RBC)Ordered By: Darrel Damico on 10-11-2024 Microscopic analysis of urine for red blood cells (RBC) 5-10 SEEN /hpf 0-5 [facility] Monocyte percentageOrdered B y: Darrel Damico on 10-11-2024 Monocytes/100 WBC (Bld) 7.9 % 0-10 [facility] Mucus LM Ql (Urine sed)Order ed By: Darrel Damico on 10-11-2024 Mucus Ql (Urine sed) 0 SEEN /hpf [facility] Neutrophil percentageOrdered By: Darrel Damico on 10-11-2024 Neutrophils/100 WBC (Bld) 73.6 % High 47-70 [facility] Nitrite Test strip Ql (U)Ord ered By: Darrel Damico on 10-11-2024 Nitrite Ql (U) Positive High Negative [facility] No Panel InformationOrdered By: Darrel Damico on 10-11-2024 Blood Gas Sample Site Not entered [facility] Blood Gas Specimen Type DESTINEE [facility] Oxygen Delivery Device Not entered [facility] Nucleated red blood cell per centageOrdered By: Darrel Damico on 10-11-2024 Nucleated RBC/100 WBC (Bld) [Ratio] 1.5 % 0-5 [facility] Platelet countOrdered By: Katty Damico on 10-11-2024 Platelets (Bld) [#/Vol] 395 10*3/uL 150-450 [facility] Potassium measurement (mass/ volume)Ordered By: Darrel Damico on 10-11-2024 Potassium (Unsp spec) [Mass/Vol] 3.4 mmol/L 3.3-5.1 [facility] Comment on above: Hemolysis present, R esults could be affected. Protein Test strip Ql (U)Ord ered By: Darrel Damico on 10-11-2024 Protein Ql (U) 30 mg/dl High Negative [facility] RBC Auto (Bld) [#/Vol]Ordere d By: Darrel Damico on 10-11-2024 RBC (Bld) [#/Vol] 2.48 10*6/uL Low 4.2-5.4 [facility] Serum creatinine measurement (mass/volume)Ordered By: Darrel Damico on 10-11-2024 Creatinine [Mass/Vol] 1.63 mg/dL High 0.70-1.20 [facility] Serum globulin measurementOr dered By: Darrel Damico on 10-11-2024 Globulin (S) [Mass/Vol] 3.1 g/dL 2.2-4.2 [facility] Serum glucose measurement (m ass/volume)Ordered By: Darrel Damico on 10-11-2024 Glucose [Mass/Vol] 336 mg/dL High 70-99 [facility] Serum or plasma alanine byrne otransferase (ALT) measurementOrdered By: Darrel Damico on 10-11-2024 ALT [Catalytic activity/Vol] 14 U/L <35 [facility] Serum or plasma albumin rajesh urement (mass/volume)Ordered By: Darrel Taylor on 10-11-2024 Albumin [Mass/Vol] 4.2 g/dL 3.4-4.8 [facility] Serum or plasma albumin/glob ulin mass ratioOrdered By: Darrel Damico on 10-11-2024 Albumin/Globulin [Mass ratio] 1.4 {ratio} 0.9-2.4 [facility] Serum or plasma alkaline ramila sphatase measurementOrdered By: Darrel Damico on 10-11-2024 ALP [Catalytic activity/Vol] 69 U/L 35-104 [facility] Serum or plasma calcium rajesh urement (mass/volume)Ordered By: Darrel Taylor on 10-11-2024 Calcium [Mass/Vol] 8.4 mg/dL 7.6-11.0 [facility] Serum or plasma urea nitroge n measurement (mass/volume)Ordered By: Darrel Damico on 10-11-2024 Urea nitrogen [Mass/Vol] 51 mg/dL High 4-19 [facility] Sodium levelOrdered By: Jarrett Damico on 10-11-2024 Sodium [Moles/Vol] 134 mmol/L 133-145 [facility] Squamous epithelial cells de tection in urine sediment by light microscopyOrdered By: Darrel Damico on 10-11-2024 Epithelial cells.squamous LM Ql (Urine sed) 0 SEEN /hpf 5-10 [facility] Total proteinOrdered By: Devan Damico on 10-11-2024 Protein [Mass/Vol] 7.2 g/dL 5.9-8.4 [facility] Urine clarityOrdered By: Devan Damico on 10-11-2024 Clarity (U) Turbid Clear [facility] Urine color determinationOrd ered By: Darrel Damico on 10-11-2024 Color (U) Yellow Yellow [facility] Urine glucose detectionOrder ed By: Darrel Damico on 10-11-2024 Glucose Ql (U) 1000 mg/dl High Normal [facility] Urine leukocyte esterase det ection by dipstickOrdered By: Darrel Damico on 10-11-2024 Leukocyte esterase Test strip Ql (U) 500 /ul High Negative [facility] Urine pHOrdered By: Darrel Webb on 10-11-2024 pH (U) 6.0 [pH] 5.0 - 8.0 [facility] Urine sediment bacteria coun t by microscopy (number/high power field)Ordered By: Darrel Damico on 10-11-2024 Bacteria LM.HPF (Urine sed) [#/Area] 1 /[HPF] None Seen [facility] Urine sediment yeast count b y microscopy (number/high powered field)Ordered By: Darrel Damico on 10-11-2024 Yeast LM.HPF (Urine sed) [#/Area] 3 /[HPF] None Seen [facility] Urine specific gravity measu rementOrdered By: Darrel Damico on 10-11-2024 Specific gravity (U) [Rel density] 1.015 1.002-1.030 [facility] Urine urobilinogen measureme ntOrdered By: Darrel Damico on 10-11-2024 Urobilinogen Ql (U) Normal mg/dl Normal [facility] Venous blood base excess [place] surementOrdered By: Darrel Damico on 10-11-2024 Base excess Calc (BldV) [Moles/Vol] 2 mmol/L -1.0-3.5 [facility] Venous blood bicarbonate [place] surementOrdered By: Darrel Damico on 10-11-2024 HCO3 (Bld) [Moles/Vol] 26 mmol/L 22-26 [facility] Venous blood oxygen saturati on measurementOrdered By: Darrel Damico on 10-11-2024 Oxygen saturation in Blood 92 % High 50-70 [facility] Venous blood pH measurementO rdered By: Darrel Damico on 10-11-2024 pH (BldV) 7.44 [pH] High 7.32-7.42 [facility] Venous blood partial pressur e of carbon dioxide measurementOrdered By: Darrel Damico on 10-11-2024 CO2 (BldV) [Partial pressure] 38.1 mm[Hg] Low 41-51 [facility] Venous blood partial pressur e of oxygen measurementOrdered By: Darrel Taylor on 10-11-2024 Oxygen (BldV) [Partial pressure] 60 mm[Hg] High 25-40 [facility] White blood cell (WBC) count Ordered By: Darrel Damico on 10-11-2024 WBC (Bld) [#/Vol] 10.6 10*3/uL 4.4-11.0 [facility] White blood cell countOrdere d By: Darrel Damico on 10-11-2024 White blood cell count >100 SEEN /hpf 0-5 [facility] CNPNon 10-09-2024 [facility] Telephone (HIRAM) NEELAM RYAN ([id number]) 1935 F Date Time Provider Department 10/09/24 DENEENLOGSARAH ALANIZ During your visit today, we recorded the following information about you: Suyapa Ronquillo LPN 10/09/2024 10:31 AM Signed Patient calling she had seen Sarah Cormier on Wednesday and was to call with bp readings and blood sugars readings Wednesday morning. 10/07 8 am 332 fasting 11 pm 499 10/08 8 am 324 fasting 11 pm 487 10/09 8 am 348 fasting 10/07 left arm 8 am 118/66 11 pm 96/55 10/08 8 am 107/62 11 pm 104/55 10/09 8 am 104/62 she did not rex down pulse readings at all Podlogar, WILMA Smith.CAR REFINISHER 10/09/2024 10:40 AM Signed Blood sugar still running high. Increase Lantus to 38 units and if still running above 200 in the next three days increase to 44 units. Update me Wednesday with blood sugar readings. Has she been feeling alright with BP readings? Any lightheadedness or dizziness? Sarah Choudhurylogkatty, WILMA.Marisol Meneses RN 10/09/2024 3:59 PM Signed Pt called and is notified of providers message and instructions. Pt voices understanding. Pt reports to feeling a little lightheaded every now and then. She states she can't pinpoint when. She reports she has never felt like she was going to pass out, and she always uses her walker. Pt does report back pain. Marisol Holm RN PodlogarSarah APRN.CNP 10/09/2024 4:10 PM Signed If pain is persistent she will should follow-up. Sarah Cormier APRN.Marisol Meneses RN 10/09/2024 6:55 PM Signed Pt called and is notified of providers message and instructions. Pt voices understanding. She states she already has an appointment on 10/24/24. I told her if she needs an earlier appointment to let us know. Marisol Holm RN Allergies As of Date: 10/09/2024 Noted Allergy Reaction ACCUPRIL (QUINAPRIL HCL) 12/24/2004 3 - Cough SULFA (SULFONAMIDE ANTIBIOTICS) 12/24/2004 4 - Hives ATORVASTATIN 01/09/2016 17 - Myalgia BENZONATATE 01/09/2016 4 - Hives GABAPENTIN 01/14/2018 14 - Other: See Comments Comments: fatigue SIMVASTATIN 01/09/2016 14 - Other: See Comments Date Reviewed: 10/06/2024 Reviewed by: Chayo Blair MA - Fully Assessed Reason for Visit: blood pressure and blood sugar readings [Other] Visit Diagnosis:Type 2 diabetes mellitus with stage 3b chronic kidney disease, without long-term current use of insulin (HCC) [E11.22, N18.32] Order(s):insulin glargine (LANTUS SOLOSTAR U-100 INSULIN) 100 unit/mL (3 mL)Inject 38 units subcutaneously every nightDisp: Rfl: Prescriptions as of 10/09/2024 - insulin glargine (LANTUS SOLOSTAR U-100 INSULIN) 100 unit/mL (3 mL) Inject 38 units subcutaneously every night - pantoprazole DR (PROTONIX) 40 mg tablet Take 1 tablet by mouth daily before breakfast. Take on empty stomach, 1/2 hr before meal. - furosemide (LASIX) 40 mg tablet Take 1 tablet by mouth once daily. - empagliflozin (JARDIANCE) 10 mg tablet Take 1 tablet by mouth daily with breakfast. - carvedilol (COREG) 25 mg tablet Take 1 tablet by mouth two times a day. - isosorbide mononitrate ER (IMDUR) 60 mg 24 hr tablet Take 1 tablet by mouth once daily. - levothyroxine (LEVOXYL) 75 mcg tablet Take 1 tablet by mouth once daily. - pravastatin (PRAVACHOL) 80 mg tablet Take 1 tablet by mouth daily at bedtime. - semaglutide (OZEMPIC) 2 mg/dose (8 mg/3 mL) pen injector Inject 2 mg subcutaneously one time a week. - amLODIPine (NORVASC) 2.5 mg tablet Take 1 tablet by mouth once daily. - citalopram (CELEXA) 20 mg tablet Take 1 tablet by mouth once daily. - folic acid 1 mg tablet Take 2 tablets by mouth once daily. - potassium chloride (K-TAB) 10 mEq tablet Take 1 tablet by mouth daily with breakfast. - vit C,K-Xd-ueuhw-lutein-joesph joi (PRESERVISION AREDS-2) 250-90-40-1 mg Take 1 capsule by mouth two times a day with meals. - aspirin 81 mg cap Take 81 mg by mouth once daily. - mecobalamin, vitamin B12, 1,000 mcg chew Take 1 tablet by mouth once daily. - acetaminophen (TYLENOL) 500 mg tablet Take 2 tablets by mouth every 8 hours as needed for pain. - blood sugar diagnostic (BLOOD GLUCOSE TEST) test strip Prodigy Glucometer Test blood sugar(s) 1 time daily. Dx: Type 2 DM - Controlled E11.9 Insulin: No - nitroglycerin sublingual (NITROQUICK) 0.4 mg SL tablet Dissolve 1 tablet under the tongue as needed. DISSOLVE ONE(1) TABLET UNDER THE TOUNGUE NEEDED FOR CHEST PAIN,EVERY 5 MIN X3 - Lancets lancets Test blood sugar(s) 1 times daily. Dx: Type 2 DM - Controlled E11.9 Insulin: No - COMPOUNDED PRESCRIPTION Prodigy Glucometer test strips Test once daily. Dx: E11.9 Insulin: No - Cholecalciferol, Vitamin D3, 1,000 unit cap Take 1 capsule by mouth once daily. - COMPOUNDED PRESCRIPTION Lancets Test once daily. Dx: E11.9 Insulin: No - Cranberry 500 mg cap Take 1 tablet by mouth once daily. - XALATAN 0.005 (more content not included)... Normal [facility] CNOVon 10-06-2024 CNOV Office Visit (FAMPWS ) NEELAM RYAN ([id number]) 1935 F Date Time Provider Department 10/06/24 11:40 AM SARAH CORMIER During your visit today, we recorded the following information about you: Pulse Respiration Blood pressure Weight 78/minute 16/minute 130/62 65.8 kg Sarah Cormier APRN.CAR REFINISHER 10/06/2024 12:09 PM Signed 10/06/2024 Patient presents with: Recheck: BP follow up, fatigue Recording using Virally software for draft documentation of the visit was discussed with the patient/authorized security systems sales representative; all questions welcomed and answered. Patient/authorized security systems sales representative agreed to proceed SUBJECTIVE: This is a 89 year old, accompanied by daughter in law, that is here today for Above Complaints.. Hypertension: - Home BP readings improved after correcting BP cuff usage. - Recent readings: 120/60 mmHg, 130/60 mmHg. - Denies dizziness or lightheadedness. - Reports fatigue. - Resumed Lasix after holding it for a few days. Diabetes: - Recent A1c increased from 8.8% to 12%. - Blood glucose readings: 400s at night, 200s in the morning. - Lantus increased to 26 units at bedtime on 10/04; instructed to increase to 32 units if BG remains >200 mg/dL. - Currently taking Jardiance 10 mg daily. - Using remaining Ozempic supply; reports it was ineffective. - Diet includes toast with peanut butter and tea for breakfast, pork tenderloin, cucumber, mixed vegetables, noodles, and watermelon for lunch. - Occasionally snacks on popcorn or crackers. - Lives alone; uses a walker for mobility. PAST MEDICAL HISTORY Diagnosis Date Basal cell carcinoma Dr. Lambert Cholecystitis, unspecified Chronic kidney disease (CKD), stage IV (severe) (HCC) Dr. Montgomery Coronary atherosclerosis of unspecified type of vessel, tulalip or graft Dr. Davenport Depression Hammertoes of both feet Multinodular goiter 05/21/2016 Osteoarthritis Other and unspecified anemias Pure hypercholesterolemia Sciatica Swelling of lower extremity Type II or unspecified type diabetes mellitus without mention of complication, not stated as uncontrolled Podiatry-Dr. Mcgee Unspecified essential hypertension Unspecified hypothyroidism ALLERGIES Accupril [Quinapril Hcl], Sulfa (Sulfonamide Antibiotics), Atorvastatin, Benzonatate, Gabapentin, and Simvastatin MEDICATIONS Current Outpatient Medications Medication Sig insulin glargine (LANTUS SOLOSTAR U-100 INSULIN) 100 unit/mL (3 mL) Inject 32 units subcutaneously every night pantoprazole DR (PROTONIX) 40 mg tablet Take 1 tablet by mouth daily before breakfast. Take on empty stomach, 1/2 hr before meal. furosemide (LASIX) 40 mg tablet Take 1 tablet by mouth once daily. empagliflozin (JARDIANCE) 10 mg tablet Take 1 tablet by mouth daily with breakfast. carvedilol (COREG) 25 mg tablet Take 1 tablet by mouth two times a day. isosorbide mononitrate ER (IMDUR) 60 mg 24 hr tablet Take 1 tablet by mouth once daily. levothyroxine (LEVOXYL) 75 mcg tablet Take 1 tablet by mouth once daily. pravastatin (PRAVACHOL) 80 mg tablet Take 1 tablet by mouth daily at bedtime. semaglutide (OZEMPIC) 2 mg/dose (8 mg/3 mL) pen injector Inject 2 mg subcutaneously one time a week. amLODIPine (NORVASC) 2.5 mg tablet Take 1 tablet by mouth once daily. citalopram (CELEXA) 20 mg tablet Take 1 tablet by mouth once daily. folic acid 1 mg tablet Take 2 tablets by mouth once daily. potassium chloride (K-TAB) 10 mEq tablet Take 1 tablet by mouth daily with breakfast. vit C,H-Bm-nirws-lutein-joesph joi (PRESERVISION AREDS-2) 250-90-40-1 mg Take 1 capsule by mouth two times a day with meals. aspirin 81 mg cap Take 81 mg by mouth once daily. mecobalamin, vitamin B12, 1,000 mcg chew Take 1 tablet by mouth once daily. acetaminophen (TYLENOL) 500 mg tablet Take 2 tablets by mouth every 8 hours as needed for pain. blood sugar diagnostic (BLOOD GLUCOSE TEST) test strip Prodigy Glucometer Test blood sugar(s) 1 time daily. Dx: Type 2 DM - Controlled E11.9 Insulin: No nitroglycerin sublingual (NITROQUICK) 0.4 mg SL tablet Dissolve 1 tablet under the tongue as needed. DISSOLVE ONE(1) TABLET UNDER THE TOUNGUE NEEDED FOR CHEST PAIN,EVERY 5 MIN X3 Lancets lancets Test blood sugar(s) 1 times daily. Dx: Type 2 DM - Controlled E11.9 Insulin: No COMPOUNDED PRESCRIPTION Prodigy Glucometer test strips Test once daily. Dx: E11.9 Insulin: No Cholecalciferol, Vitamin D3, 1,000 unit cap Take 1 capsule by mouth once daily. COMPOUNDED PRESCRIPTION Lancets Test once daily. Dx: E11.9 Insulin: No Cranberry 500 mg cap Take 1 tablet by mouth once daily. XALATAN 0.005 % EYE DROPS Use 1 drop in both eyes daily at bedtime. No current facility-administered medications for this visit. Medications and allergies reviewed by this provider. SOCIAL HISTORY Social History Tobacco Use Smoking status: Never (more content not included)... Normal [facility] 10-04-2024 [facility] Telephone (RODNEYWS) NEELAM RYAN ([id number]) 1935 F Date Time Provider Department 10/04/24 [facility] During your visit today, we recorded the following information about you: Suyapa Ronquillo LPN 10/04/2024 10:26 AM Signed Patient calling with blood pressure and blood sugar readings for past 5 days for PCP, she said her BP was low in the office. Patient said she uses left arm, having problems getting cuff situated correctly on her arm, no one at home to assist her. she just sits down with arm up on a table and checks it. 09/29 7 am 155/80 no pulse written down 09/29 11 pm 173/80 no pulse 09/30 7 am 211/118 no pulse 09/30 11 pm 164/83 no pulse 10/01 7 am 232/134 no pulse 10/01 11 pm 193/86 no pulse 10/02 7 am 232/131 no pulse 10/02 1130 pm 227/125 no pulse 10/03 7 am 168/98 no pulse 10/03 11 pm 188/103 no pulse 10/04 8 am 188/103 no pulse Blood sugars 09/30 fasting 268 bedtime 388 10/01 fasting 310 bedtime 522 10/02 fasting 274 bedtime 366 10/03 fasting 286 bedtime 421 10/04 fasting [address] already knows what medications I take. Frank Fuentes MD 10/04/2024 10:46 AM Signed Sugars are still running high with new rx for Lantus. Increase dose from 20 units to 26 units qhs and continue to monitor daily and if sugar is still running above 200 in the next 3 days she can increase to 32 units. Call with update on readings and insulin dose she is taking on Wednesday. BP at home is much higher than what we were getting here. Is she having symptoms of high BP including headache, Shortness of Breath, leg swelling, vision changes? If not, recommend she come in in the next 24 hours to get BP rechecked and bring home cuff with her. If symptomatic with BP >180/110 I would recommend ER. Edel Paredes LPN 10/04/2024 1:45 PM Signed Patient telephoned and made aware of results and recommendations from provider. Patient read back x2 with understanding. Denies any symptoms of high BP. Appointment scheduled for tomorrow with Sarah Cormier for BP check and home BP machine validation. Edel Paredes LPN PodSarah foster APRN.RICHARD 10/04/2024 1:56 PM Signed Reviewed. Sarah Cormier APRN.Marilin Kee RN 10/05/2024 8:24 AM Signed Patient calls to report that her son came over last evening and checked her BP twice and showed her how to use the cuff as she was doing it wrong. 10/04/2024 BP 136/65 10/04/2024 BP 93/48 10/04/2024 BP 88/50 10/05/2024 Before Bkfst 110/64 Denies any symptoms of dizziness, light-headedness, or weakness with lower readings. Requests to cancel appt today at 10 am. Recommended keeping to make sure cuff is accurate. Patient reports she is not coming in. Appt cancelled. Marilin Melros RN PodlogarSarah APRN.RICHARD 10/05/2024 10:01 AM Signed Would recommend appointment to validate cuff however if she is unwilling to come in then she needs to notify us for continued BP's of 110/50 or less especially if she becomes dizzy or lightheaded. Sarah Choudhurylogkatty, WILMA.Flaquita Wolfe MA 10/05/2024 12:38 PM Addendum Pt informed. Scheduled tomorrow at 1140 with PAVAN. Pt reports no dizziness. Pt c/o R lower back pain started today. Reports no urinary sx. Advised her to call in and ask to speak with triage nurse if sx worsen before appt. Flaquita Oden MA PodlogarSarah APRN.RICHARD 10/05/2024 2:00 PM Signed Reviewed. Sarah ChoudhurylogWILMA alaniz.RICHARD Allergies As of Date: 10/04/2024 Noted Allergy Reaction ACCUPRIL (QUINAPRIL HCL) 12/24/2004 3 - Cough SULFA (SULFONAMIDE ANTIBIOTICS) 12/24/2004 4 - Hives ATORVASTATIN 01/09/2016 17 - Myalgia BENZONATATE 01/09/2016 4 - Hives GABAPENTIN 01/14/2018 14 - Other: See Comments Comments: fatigue SIMVASTATIN 01/09/2016 14 - Other: See Comments Date Reviewed: 09/26/2024 Reviewed by: Rakel New MA - Fully Assessed Reason for Visit: blood pressure readings, blood sugars [Other] Visit Diagnosis:Type 2 diabetes mellitus with stage 3b chronic kidney disease, without long-term current use of insulin (HCC) [E11.22, N18.32] Order(s):insulin glargine (LANTUS SOLOSTAR U-100 INSULIN) 100 unit/mL (3 mL)Inject 26 Units subcutaneously daily at bedtime.Disp: 6 mLRfl: 2 Prescriptions as of 10/05/2024 - insulin glargine (LANTUS SOLOSTAR U-100 INSULIN) 100 unit/mL (3 mL) Inject 26 Units subcutaneously daily at bedtime. - pantoprazole DR (PROTONIX) 40 mg tablet Take 1 tablet by mouth daily before breakfast. Take on empty stomach, 1/2 hr before meal. - furosemide (LASIX) 40 mg tablet Take 1 tablet by mouth once daily. - empagliflozin (JARDIANCE) 10 mg tablet Take 1 tablet by mouth daily with breakfast. - carvedilol (COREG) 25 mg tablet Take 1 tablet by mouth two times a day. - isosorbide mononitrate ER (IMDUR) 60 mg 24 hr tablet Take 1 tablet by mouth once daily. - levothyroxine (LEVOXY (more content not included)... Normal [facility] NEEL[facility] RYAN ([id number]) 1935 F Date Time Provider Department [facility]/27[facility] During your visit today, we recorded the following information about you: Frank Fuentes MD 09/27/2024 10:36 AM Signed Patient in yesterday and noted to have UTI with low BP. Advised to spanish moss picker BP cuff for home and check this morning and hold lasix for 2 days. How is she feeling this morning? Has she checked her BP? Rakel New MA 09/27/2024 1:43 PM Signed Patient states she feels a little bit better but not much. Mentioned she had enough energy though to go to [facility] today and purchase a new BP cuff. Has not opened it yet and taken BP but, states she will and she'll call in a few days with readings. She had no concerns. FABY Curtis Christopher B, MD 09/27/2024 1:53 PM Signed I would have her check her BP today and call us in the morning with readings or sooner if <100/60. Rakel New MA 09/27/2024 2:39 PM Signed Patient informed and states she will try and get her BP out of the packaging and take it. Will call with readings. Rakel New MA Allergies As of Date: 09/27/2024 Noted Allergy Reaction ACCUPRIL (QUINAPRIL HCL) 12/24/2004 3 - Cough SULFA (SULFONAMIDE ANTIBIOTICS) 12/24/2004 4 - Hives ATORVASTATIN 01/09/2016 17 - Myalgia BENZONATATE 01/09/2016 4 - Hives GABAPENTIN 01/14/2018 14 - Other: See Comments Comments: fatigue SIMVASTATIN 01/09/2016 14 - Other: See Comments Date Reviewed: 09/26/2024 Reviewed by: Rakel New MA - Fully Assessed Reason for Visit: Patient Update [1234] Prescriptions as of 09/27/2024 - insulin glargine (LANTUS SOLOSTAR U-100 INSULIN) 100 unit/mL (3 mL) Inject 16 Units subcutaneously daily at bedtime. - nitrofurantoin monohydrate and macrocrystal (MACROBID) 100 mg capsule Take 1 capsule by mouth two times a day for 5 days. - pantoprazole DR (PROTONIX) 40 mg tablet Take 1 tablet by mouth daily before breakfast. Take on empty stomach, 1/2 hr before meal. - furosemide (LASIX) 40 mg tablet Take 1 tablet by mouth once daily. - empagliflozin (JARDIANCE) 10 mg tablet Take 1 tablet by mouth daily with breakfast. - carvedilol (COREG) 25 mg tablet Take 1 tablet by mouth two times a day. - isosorbide mononitrate ER (IMDUR) 60 mg 24 hr tablet Take 1 tablet by mouth once daily. - levothyroxine (LEVOXYL) 75 mcg tablet Take 1 tablet by mouth once daily. - pravastatin (PRAVACHOL) 80 mg tablet Take 1 tablet by mouth daily at bedtime. - semaglutide (OZEMPIC) 2 mg/dose (8 mg/3 mL) pen injector Inject 2 mg subcutaneously one time a week. - amLODIPine (NORVASC) 2.5 mg tablet Take 1 tablet by mouth once daily. - citalopram (CELEXA) 20 mg tablet Take 1 tablet by mouth once daily. - folic acid 1 mg tablet Take 2 tablets by mouth once daily. - potassium chloride (K-TAB) 10 mEq tablet Take 1 tablet by mouth daily with breakfast. - vit C,V-Kt-tgajc-lutein-joesph joi (PRESERVISION AREDS-2) 250-90-40-1 mg Take 1 capsule by mouth two times a day with meals. - aspirin 81 mg cap Take 81 mg by mouth once daily. - mecobalamin, vitamin B12, 1,000 mcg chew Take 1 tablet by mouth once daily. - acetaminophen (TYLENOL) 500 mg tablet Take 2 tablets by mouth every 8 hours as needed for pain. - blood sugar diagnostic (BLOOD GLUCOSE TEST) test strip Prodigy Glucometer Test blood sugar(s) 1 time daily. Dx: Type 2 DM - Controlled E11.9 Insulin: No - nitroglycerin sublingual (NITROQUICK) 0.4 mg SL tablet Dissolve 1 tablet under the tongue as needed. DISSOLVE ONE(1) TABLET UNDER THE TOUNGUE NEEDED FOR CHEST PAIN,EVERY 5 MIN X3 - Lancets lancets Test blood sugar(s) 1 times daily. Dx: Type 2 DM - Controlled E11.9 Insulin: No - COMPOUNDED PRESCRIPTION Prodigy Glucometer test strips Test once daily. Dx: E11.9 Insulin: No - Cholecalciferol, Vitamin D3, 1,000 unit cap Take 1 capsule by mouth once daily. - COMPOUNDED PRESCRIPTION Lancets Test once daily. Dx: E11.9 Insulin: No - Cranberry 500 mg cap Take 1 tablet by mouth once daily. - XALATAN 0.005 % EYE DROPS Use 1 drop in both eyes daily at bedtime. Problem List As Of Date 09/27/2024 Noted Resolved Mixed hyperlipidemia [E78.2] 01/07/2005 Type 2 diabetes mellitus with stage 3b chronic *01/07/2005 Hypothyroidism [E03.9] 01/07/2005 Anemia, unspecified [D64.9] CONSTIPATION NOS [K59.00] 01/23/2005 ESOPHAGEAL REFLUX [K21.9] 01/23/2005 Acute gastritis without mention of hemorrhage [*01/30/2005 12/30/2016 SPINAL STENOSIS-LUMBAR [M48.061] 02/24/2005 SCIATICA [M54.30] 02/24/2005 Calculus of gallbladder with acute cholecystiti*02/24/2005 12/30/2016 Unspecified cardiovascular disease [I25.10] 10/05/2005 12/30/2016 Essential hypertension [I10] Coronary atherosclerosis [I25.10] 12/30/2016 Unspecified deformity of ankle and foot, acquir*1 (more content not included)... Normal [facility] Bacteria Ur Culton 5 Bacteria identified Cx Nom (U) CULTURE, URINE: Mixed microbiota, including predominantly: ORGANISM ID: [id number] 50,000-<100,000 CFU/ml Escherichia coli ORGANISM ID: 1 (ESCHERICHIA COLI) ANTIBIOTIC INTERPRETATION JENI STATUS REFERENCE RANGE Ampicillin S 8 F Susceptible <=8 , Intermediate >8 , Resistant >16 Cefazolin S <=4 F Susceptible 0-16 , Intermediate <0 or >16 , Resistant >16 For uncomplicated urinary tract infections, cefazolin results can be used to predict susceptibility or resistance to cephalexin. Ceftriaxone S <=1 F Susceptible <=1 , Intermediate >1 , Resistant >=4 Cefepime S <=1 F Susceptible <=2 , Susceptible-Dose Dependent >2 , Resistant >=16 Ertapenem S <=0.5 F Susceptible <=0.5 , Intermediate >.5 , Resistant >1 Meropenem S <=0.25 F Susceptible <=1 , Intermediate >1 , Resistant >2 Ampicillin/Sulbact S 4 F Susceptible <=8 , Intermediate >8 , Resistant >16 Piperacillin/Tazobac S <=4 F Susceptible <16 , Susceptible-Dose Dependent >=16 , Resistant >=32 Gentamicin S <=1 F Susceptible <=2 , Intermediate >2 , Resistant >=8 Tobramycin S <=1 F Susceptible <4 , Intermediate >=4 , Resistant >=8 Trimeth sulfameth S <=20 F Susceptible <=40 , Resistant >40 Ciprofloxacin S <=0.25 F Susceptible <0.5 , Intermediate >=.5 , Resistant >=1 Nitrofurantoin S <=16 F Susceptible <=32 , Intermediate >32 , Resistant >64 Abnormal [facility] Comment on above: Performed By: #### 6 30-4 ####[facility] LABCLIA [id number] [place] [id number] [facility] CNOVon 09-26-2024 CNOV Office Visit (FAMPWS ) NEELAM RYAN ([id number]) 1935 F Date Time Provider Department 09/26/24 1:40 PM FRANK FUENTESARMANDO During your visit today, we recorded the following information about you: Temperature Pulse Blood pressure Weight 99.4 degrees 80/minute 88/38 67.2 kg Height 1.499 m Frank Fuentes MD 09/26/2024 3:10 PM Signed Chief Complaint Patient presents with: Follow Up Recording using Virally software for draft documentation of the visit was discussed with the patient/authorized security systems sales representative; all questions welcomed and answered. Patient/authorized security systems sales representative agreed to proceed HPI Neelam Ryan is a 89 year old female who presents here today for Above Complaints. Fatigue: - Persistent fatigue, described as tired and weak, with a desire to sleep frequently. - Reports feeling clumsy when tired. - Denies confusion, chest pain, palpitations, cough, wheezing, rash, nausea, emesis, or diarrhea. - Denies taking extra medications; uses a weekly pill organizer. Polyuria: - Increased urination, denies hematuria or dysuria. - Denies lower abdominal or flank pain. - Drinking a lot of fluids. Fall: - Fell 4-5 days ago while bending over to pick something up. - Landed on hands and knees, then rolled onto side. - Sustained a small bruise on the right hand and a minor abrasion on the right knee. - Denies hitting head, losing consciousness, or sustaining injuries to hip, side, or shoulder. - Denies current pain in hands or knees. Diabetes Mellitus: - Recent increase in Ozempic dosage from 1 to 2. - Started on Jardiance recently. - Taking all medications as prescribed. - Admits to poor adherence to diabetic diet, consuming more bread and pasta. - Reports frequent feelings of low energy and a desire to sleep. - Recent blood glucose readings in the 260s and 250s. - Previous insulin use discontinued when metformin was introduced; metformin was later discontinued due to kidney function concerns. - Recent blood work showed blood glucose of 246 mg/dL and A1c increased from 8.8% to 12%. Chronic Kidney Disease Stage 3: - Recent blood work showed stable kidney function. Past medical history, appointments, medications, allergies reviewed. Previous Medical History PAST MEDICAL HISTORY Diagnosis Date Basal cell carcinoma Dr. Lambert Cholecystitis, unspecified Chronic kidney disease (CKD), stage IV (severe) ([facility]) Dr. Mnotgomery Coronary atherosclerosis of unspecified type of vessel, tulalip or graft Dr. Davenport Depression Hammertoes of both feet Multinodular goiter 05/21/2016 Osteoarthritis Other and unspecified anemias Pure hypercholesterolemia Sciatica Swelling of lower extremity Type II or unspecified type diabetes mellitus without mention of complication, not stated as uncontrolled Podiatry-Dr. Mcgee Unspecified essential hypertension Unspecified hypothyroidism Previous Surgical History PAST SURGICAL HISTORY Procedure Laterality Date COLONOSCOPY FLX DX W/COLLJ SPEC WHEN PFRMD 01/30/2005 Colonoscopy COLONOSCOPY FLX DX W/COLLJ SPEC WHEN PFRMD 08/05/2015 Colonoscopy ESOPHAGOGASTRODUODENOSC OPY TRANSORAL DIAGNOSTIC 01/30/2005 EGD HEART CATHETERIZATION 09/2018 angiopasty of circumflex, 75% stenosis. LAD 80%. LAPAROSCOPY SURG CHOLECYSTECTOMY 12/02/2005 Cholecystectomy, lap PAST SURGICAL HISTORY OF hernia PAST SURGICAL HISTORY OF carpal tunnel both hands PAST SURGICAL HISTORY OF fingers different times PAST SURGICAL HISTORY OF trigger finger PAST SURGICAL HISTORY OF 06/21/2006 heart cath with stent placement [facility] PAST SURGICAL HISTORY OF 04/24/2008 vaginal hysterectomy, bladder suspension, rectocele PAST SURGICAL HISTORY OF 11/20/11 cardiac cath; percutaneous transluminal coronary angioplasty with stent @ [facility] PAST SURGICAL HISTORY OF left wrist surgery TOTAL THYROID LOBECTOMY UNI W/WO ISTHMUSECTOMY Right 05/21/2016 TRANSCATH STENT INIT VESSEL,PERCUT 08/18 Transcath stent init vessel percut LAD Tara [facility] Family History FAMILY HISTORY Problem Relation Age of Onset Diabetes Mother CAD, ANGIOPLASTY Diabetes Father DC other (DC) Brother other (OHS) Sister other (DC) Brother Heart Sister diabetic Heart Sister Heart Sister diabetic Heart Sister diabetic Patient Allergies ALLERGIES Allergen Reactions Accupril [Quinapril* Cough Sulfa (Sulfonamide * Hives Atorvastatin Myalgia Benzonatate Hives Gabapentin Other: See Comments fatigue Simvastatin Other: See Comments Current Medications Current Outpatient Medications on File Prior to Visit Medication Sig pantoprazole DR (PROTONIX) 40 mg tablet Take 1 tablet by mouth daily before breakfast. Take on empty stomach, 1/2 hr before meal. furosemide (LASIX) 40 mg tablet Take 1 tablet (more content not included)... Normal [facility] UA DIP, URINE (POC)on 2024 BILIRUBIN UA (POCT) Negative Negative [facility] CLARITY UA (POCT) Cloudy [facility] COLOR UA (POCT) Yellow [facility] GLUCOSE UA (POCT) 500 mg/dL Abnormal Negative [facility] Hemoglobin Ql (U) Trace-lysed Abnormal Negative [facility] Interpretation and review of laboratory results Abnormal [facility] KETONE UA (POCT) Negative Negative mg/dL [facility] LEUKOCYTES UA (POCT) Moderate Abnormal Negative [facility] NITRITE UA (POCT) Positive Abnormal Negative [facility] PH UA (POCT) 5.5 4.5 - 8.0 [facility] Protein Ql (U) Negative Negative mg/dL [facility] SPECIFIC GRAVITY UA (POCT) 1.01 1.005 - 1.030 [facility] UROBILINOGEN UA (POCT) 0.2 Shanda l E.U./dL [facility] Location:[facility], [address] [place] [address], [place], [address] [facility] POINT OF CARE [facility] CNOVon 09-21-2024 CNOV Office Visit (PODIWS ) NEELAM RYAN ([id number]) 1935 F Date Time Provider Department 09/21/24 1:00 PM KAROLINA MCGEE PODIWS During your visit today, we recorded the following information about you: Karolina Mcgee 09/21/2024 1:29 PM Signed Last saw pcp: 07/11/24 Subjective: Patient presents to clinic c/o painful toenails. They state that the nails are especially painful with shoe gear and pressure. Patient states that nails b/l hallux are painful. She tends to develop ingrown toenails of b/l hallux. Patient admits to being diabetic. Last A1c this month >12. No other pedal complaints at this time. Patient states no change in medications or medical history since last visit. Objective: Patient presents to clinic ambulating in diabetic shoes Vasc: DP and PT pulses are nonpalpable bilateral. CFT is less than 5 seconds bilateral. Skin temperature is warm to cool proximal to distal bilateral. There is moderate edema or varicosities noted. Neuro: Protective sensation is decreased to the foot and toes when tested with the 5.07 SWM bilateral. Vibratory sensation is decreased at the hallux IPJ bilateral. The hallux is downgoing bilateral. Derm: Nails 1-5 b/l are painful, discolored-yellow, thick, crumbly, dystrophic and with subungal debris. Ingrowing toenail without infection is present to b/l hallux. Skin is of normal turgor, texture and hair growth is decreased bilateral. There are no hyperkeratosis, ulcerations, scars, verruca or other lesions noted. Ortho: Muscle strength is 5/5 for all pedal groups tested. Ankle joint DF is decreased with the knee extended with no pain or crepitus noted. 1st MPJ ROM is decreased bilateral. Hammertoe is present to right 2nd toe Assessment: (B35.1) Onychomycosis (primary encounter diagnosis) (M79.674) Pain in toe of right foot (M79.675) Pain in toe of left foot (E11.9) Type 2 diabetes mellitus without complication, without long-term current use of insulin ([facility]) Plan: Patient was seen and evaluated. Nails 1-5 bilateral were debrided in length and thickness. Discussed ingrowing toenail of b/l hallux. Discussed possible matrixectomy, either partial or total. Would need to have A1c less than 8 to consider and would recommend getting a pvr prior. Patient is going to hold on procedure or thought of procedure at this time. Discussed hammertoe of right 2nd toe. Continue with a wider shoe or diabetic shoe to avoid rubbing. Patient was instructed on the continued importance of diabetic foot care along with proper diet and keeping their blood sugar under control to prevent complications. I stressed the importance of avoiding barefoot walking, wearing good shoes and inspection of feet. Patient is to RTC in 3-4 months. ZAINA Gonzalez Matthew 09/21/2024 1:09 PM Signed Diabetes Foot Care Instructions When you have diabetes, proper foot care is very important. Poor foot care may lead to amputation of a foot or leg. As a person with diabetes, you are more vulnerable to foot problems, because diabetes can damage your nerves and reduce blood flow to your feet. Here are some diabetes foot care tips to follow: Wash and Dry Your Feet Daily Use mild soaps Use warm water Pat your skin dry; do not rub. Thoroughly dry your feet. After washing, use lotion on your feet to prevent cracking. Do not put lotion between your toes. Examine Your Feet Each Day Check the tops and bottoms of your feet. Have someone else look at your feet if you cannot see them. Check for dry, cracked skin. Look for blisters, cuts, scratches, or other sores. Check for redness, increased warmth, or tenderness when touching any area of your feet. Check for ingrown toenails, corns, and calluses. If you get a blister or sore from your shoes, do not pop it. Apply a bandage and wear a different pair of shoes. Take Care of Your Toenails Cut toenails after bathing, when they are soft. Cut toenails straight across and smooth with a nail file. Avoid cutting into the corners of toes. Do not cut cuticles. If you have neuropathy (or decreased sensation in your feet) a finish saw operator should always cut your toenails. Be Careful When Exercising Walk and exercise in comfortable shoes. Do not exercise when you have open sores on your feet. Protect Your Feet With Shoes and Socks Never go barefoot. Always protect your feet by wearing shoes or hard-soled slippers or footwear. Avoid shoes with high heels and pointed toes. Avoid shoes that expose your toes or heels (such as open-toed shoes or sandals). These types of shoes increase your risk for injury and potential infections. Try on new footwear with the type of socks you usually wear. Do not wear new shoes for more than an hour at a time. Change your socks daily. Look and feel inside your shoes before putting them on to make (more content not included)... Normal [facility] 25(OH)D3 [facility]-ncon 2024 25-hydroxyvitamin D3 [Mass/Vol] 60.6 ng/mL Normal 31.0-80.0 [facility] Comment on above: Order Comment: Speci men Type: BLOOD SPECIMENOrdering Facility: [facility] Address: [address] [place] [address] Result Comment: Clas sification of 25 [place] Vitamin D status: Deficiency/Insufficiency: < or = 30 ng/ml. Sufficiency/Optimal Levels: 31-80 ng/mL Toxicity: > 100 ng/mL. Test performed by chemiluminescent immunoassay. Performed By: #### 1 989-3 ####[facility] LABCLIA [id number] [place] [address] [place] Comprehensive metabolic 2000 panelon 09-19-2024 Albumin [Mass/Vol] 4.4 g/dL Normal 3.9-4.9 [facility] Comment on above: Order Comment: Speci men Type: BLOOD SPECIMENOrdering Facility: [facility] Address: [address] [place] [address] Performed By: #### 2 4322-10, 2131-11 ####[facility] LABCLIA [id number] [place] [address] [place] ALP [Catalytic activity/Vol] 61 U/L Normal 34-123 [facility] Comment on above: Order Comment: Speci men Type: BLOOD SPECIMENOrdering Facility: [facility] Address: [address] [place] [address] Performed By: #### 2 4322-10, 2131-11 ####[facility] LABCLIA [id number] [place] [address] [place] ALT [Catalytic activity/Vol] 11 U/L Normal 7-38 [facility] Comment on above: Order Comment: Speci men Type: BLOOD SPECIMENOrdering Facility: [facility] Address: [address] [place] [address] Performed By: #### 2 4322-10, 2131-11 ####[facility] LABCLIA [id number] [place] [address] [place] Anion gap [Moles/Vol] 16 mmol/L High 8-15 [facility] Comment on above: Order Comment: Speci men Type: BLOOD SPECIMENOrdering Facility: [facility] Address: [address] [place] [address] Performed By: #### 2 43205-20, 2131-11 ####[facility] LABCLIA [id number] [place] [address] [place] AST [Catalytic activity/Vol] 12 U/L Low 13-35 [facility] Comment on above: Order Comment: Speci men Type: BLOOD SPECIMENOrdering Facility: [facility] Address: [address] [place], [place] [address] Performed By: #### 2 4322-10, 2131-11 ####[facility] LABCLIA [id number] [place] [id number] [place] Bilirubin [Mass/Vol] 0.7 mg/dL Normal 0.2-1.3 [facility] Comment on above: Order Comment: Speci men Type: BLOOD SPECIMENOrdering Facility: [facility] Address: [address] [place] [address] Performed By: #### 2 4322-10, 2131-11 ####[facility] LABCLIA [id number] [place] [address] [place] Calcium [Mass/Vol] 9.7 mg/dL Normal 8.5-10.2 [facility] Comment on above: Order Comment: Speci men Type: BLOOD SPECIMENOrdering Facility: [facility] Address: [address] [place] [address] Performed By: #### 2 4322-10, 2131-11 ####[facility] LABCLIA [id number] [place] [id number] [place] Chloride [Moles/Vol] 96 mmol/L Low 98-107 [facility] Comment on above: Order Comment: Speci men Type: BLOOD SPECIMENOrdering Facility: [facility] Address: [address] [place], [place] [address] Performed By: #### 2 4322-10, 2131-11 ####[facility] LABCLIA [id number] [address] [address] [place] CO2 [Moles/Vol] 21 mmol/L Low 22-30 [facility] Comment on above: Order Comment: Speci men Type: BLOOD SPECIMENOrdering Facility: [facility] Address: [address] [place], [place] [address] Performed By: #### 2 4322-10, 2131-11 ####[facility] LABCLIA [id number] [address] [address] [place] Creatinine [Mass/Vol] 1.49 mg/dL High 0.58-0.96 [facility] Comment on above: Order Comment: Yeimi paulson Type: BLOOD SPECIMENOrdering Facility: [facility] Address: [address] [place] [id number] Performed By: #### 2 43205-20, 2131-11 ####[facility] LABIA [id number] [place] [id number] [place] Creatinine and Glomerular filtration rate.predicted panel (S/P/Bld) 34 mL/min/1.73m??? Low >=60 [facility] Comment on above: Order Comment: Yeimi paulson Type: BLOOD SPECIMENOrdering Facility: [facility] Address: [address] [place] [address] Result Comment: Silvia mated Glomerular Filtration Rate (eGFR) is calculated using the 2020 CKD-EPI creatinine equation. This equation utilizes serum creatinine, sex, and age as parameters. The creatinine assay has traceable calibration to isotope dilution-mass spectrometry. Refer to KDIGO guidelines for clinical interpretation. In patients with unstable renal function, e.g. those with acute kidney injury, the eGFR may not accurately reflect actual GFR. Performed By: #### 2 43205-20, 2131-11 ####[facility] LABIA [id number] [address] [address] [place] Glucose [Mass/Vol] 246 mg/dL High 74-99 [facility] Comment on above: Order Comment: Speclaurel men Type: BLOOD SPECIMENOrdering Facility: [facility] Address: [address] [place] [id number] Result Comment: The [place] Diabetes Association (ADA) provides guidance for cutoff values for fasting glucose and random glucose. The ADA defines fasting as no caloric intake for at least 8 hours. Fasting plasma glucose results between 100 to 125 mg/dL indicate increased risk for diabetes (prediabetes). Fasting plasma glucose results greater than or equal to 126 mg/dL meet the criteria for diagnosis of diabetes. In the absence of unequivocal hyperglycemia, results should be confirmed by repeat testing. In a patient with classic symptoms of hyperglycemia or hyperglycemic crisis, random plasma glucose results greater than or equal to 200 mg/dL meet the criteria for diagnosis of diabetes. Reference: Standards of Medical Care in Diabetes 2016, [place] Diabetes Association. Diabetes Care. 2016.39(Suppl 1). Performed By: #### 2 4322-10, 2131-11 ####[facility] LABCLIA [id number] [address] [address] [place] Potassium [Moles/Vol] 4.6 mmol/L Normal 3.7-5.1 [facility] Comment on above: Order Comment: Speci men Type: BLOOD SPECIMENOrdering Facility: [facility] Address: [address] [place] [address] Performed By: #### 2 4322-10, 2131-11 ####[facility] LABCLIA [id number] [address] [address] [place] Protein [Mass/Vol] 6.9 g/dL Normal 6.3-8.0 [facility] Comment on above: Order Comment: Speci men Type: BLOOD SPECIMENOrdering Facility: [facility] Address: [address] [place] [address] Performed By: #### 2 4322-10, 2131-11 ####[facility] LABCLIA [id number] [address] [address] [place] Sodium [Moles/Vol] 133 mmol/L Low 136-144 [facility] Comment on above: Order Comment: Speci men Type: BLOOD SPECIMENOrdering Facility: [facility] Address: [address] [place], [place] [address] Performed By: #### 2 4322-10, 2131-11 ####[facility] LABCLIA [id number] [address] [place] [address] [place] Urea nitrogen [Mass/Vol] 60 mg/dL High 7-21 [facility] Comment on above: Order Comment: Speci men Type: BLOOD SPECIMENOrdering Facility: [facility] Address: [address] [place] [address] Performed By: #### 2 4323-8, 2132-9 ####[facility] LABCLIA [id number] [address] [address] [facility] [place] HbA1c (Bld)on 09-19-2024 Average glucose Estimated from glycated hemoglobin (Bld) [Mass/Vol] 298 mg/dL Normal [facility] Comment on above: Order Comment: Yeimi paulson Type: BLOOD SPECIMENOrdering Facility: [facility] Address: [address] [place] [address] Result Comment: eAG: (Estimated average glucose) is a calculated value from HgbA1c and is security systems sales representative of the average blood glucose level in the last 2-3 month period. Performed By: #### 5 5454-3 ####[facility] LABIA [id number] [place] [address] [place] HbA1c (Bld) [Mass fraction] 12.0 % High 4.3-5.6 [facility] Comment on above: Order Comment: Yeimi paulson Type: BLOOD SPECIMENOrdering Facility: [facility] Address: [address] [place] [address] Result Comment: [place] Diabetes Association guidelines indicate that patients with HgbA1c in the range 5.7-6.4% are at increased risk for development of diabetes, and intervention by lifestyle modification may be beneficial. HgbA1c greater or equal to 6.5% is considered diagnostic of diabetes. Performed By: #### 5 5454-3 ####[facility] LABCLIA [id number] [place] [id number] [facility] [place] Vit B12 SerPl-mCncon 025 Cobalamin (Vitamin B12) [Mass/Vol] pg/mL High 232-1245 [facility] Comment on above: Order Comment: Yeimi [facility] Type: BLOOD SPECIMENOrdering Facility: [facility] Address: [address] [place] [address] Performed By: #### 2 4323-8, 2132-9 ####[facility] LABCLIA [id number] MEHUL FISHER [id number] [place], [place] [id number] [place] Anion gap in Serum or Plasma Ordered By: Safia Montgomery on 08-21-2024 Anion gap [Moles/Vol] 15 mmol/L 07-27 [facility] BUN/creatinine ratioOrdered By: Safia Montgomery on 08-21-2024 Urea nitrogen/Creatinine [Mass ratio] 44.5 mg/mg High 01-01 [facility] NE[facility] ([id number]) 1935 F Date Time Provider Department 08/21/24 FRANK FUENTES [facility] During your visit today, we recorded the following information about you: Kristen Cornell LPN 08/21/2024 10:09 AM Signed Pt calls with fbs from 08/02-08/21/24 as advised: [phone] Please review and advise. ROBIN Lemon Christopher B, MD 08/21/2024 12:20 PM Signed Sugars are still high despite being on max dose of Ozempic at 2 mg weekly. Patient refused SGLT-2 pill/medication at last OV that would have caused her to urinate out more of her sugar to help lower her readings and protect kidney function. If still not interested in this, the next step would be insulin. Is she wanting to try the pill, or go on insulin? Rakel New MA 08/21/2024 2:15 PM Signed Message left for return call. FABY Curtis Krista, LPN 08/22/2024 9:18 AM Signed Pt notified of dr's message. Pt reports she is willing to try the pills first. ROBIN Lemon Christopher B, MD 08/22/2024 9:42 AM Signed Rx sent for Jardiance 10 mg daily. Watch for signs of UTI with this new medication and continue to work on hydration with at least 64 oz of water per day. Check fasting sugars daily and send update in 3 weeks. With sugars >250, if she were to develop fever/chills, abdominal pain, nausea/vomiting, confusion, increased urination, SOB I would recommend ER evaluation for DKA. Rakel New MA 08/22/2024 11:25 AM Signed Spoke with patient in detail and she verbalized understanding. Rakel New MA Allergies As of Date: 08/21/2024 Noted Allergy Reaction ACCUPRIL (QUINAPRIL HCL) 12/24/2004 3 - Cough SULFA (SULFONAMIDE ANTIBIOTICS) 12/24/2004 4 - Hives ATORVASTATIN 01/09/2016 17 - Myalgia BENZONATATE 01/09/2016 4 - Hives GABAPENTIN 01/14/2018 14 - Other: See Comments Comments: fatigue SIMVASTATIN 01/09/2016 14 - Other: See Comments Date Reviewed: 07/11/2024 Reviewed by: Trina Moore LPN - Fully Assessed Reason for Visit: blood sugar readings [Other] Order(s):empagliflozin (JARDIANCE) 10 mg tabletTake 1 tablet by mouth daily with breakfast.Disp: 90 tabletRfl: 0 Prescriptions as of 08/22/2024 - empagliflozin (JARDIANCE) 10 mg tablet Take 1 tablet by mouth daily with breakfast. - carvedilol (COREG) 25 mg tablet Take 1 tablet by mouth two times a day. - isosorbide mononitrate ER (IMDUR) 60 mg 24 hr tablet Take 1 tablet by mouth once daily. - levothyroxine (LEVOXYL) 75 mcg tablet Take 1 tablet by mouth once daily. - pravastatin (PRAVACHOL) 80 mg tablet Take 1 tablet by mouth daily at bedtime. - semaglutide (OZEMPIC) 2 mg/dose (8 mg/3 mL) pen injector Inject 2 mg subcutaneously one time a week. - amLODIPine (NORVASC) 2.5 mg tablet Take 1 tablet by mouth once daily. - citalopram (CELEXA) 20 mg tablet Take 1 tablet by mouth once daily. - folic acid 1 mg tablet Take 2 tablets by mouth once daily. - glipiZIDE (GLUCOTROL) 10 mg tablet Take 1 tablet (10 mg) by mouth two times a day before meals. - potassium chloride (K-TAB) 10 mEq tablet Take 1 tablet by mouth daily with breakfast. - vit C,E-So-stysu-lutein-joesph joi (PRESERVISION AREDS-2) 250-90-40-1 mg Take 1 capsule by mouth two times a day with meals. - furosemide (LASIX) 40 mg tablet Take 1 tablet by mouth once daily. - pantoprazole DR (PROTONIX) 40 mg tablet Take 1 tablet by mouth daily before breakfast. Take on empty stomach, 1/2 hr before meal. - aspirin 81 mg cap Take 81 mg by mouth once daily. - mecobalamin, vitamin B12, 1,000 mcg chew Take 1 tablet by mouth once daily. - acetaminophen (TYLENOL) 500 mg tablet Take 2 tablets by mouth every 8 hours as needed for pain. - blood sugar diagnostic (BLOOD GLUCOSE TEST) test strip Prodigy Glucometer Test blood sugar(s) 1 time daily. Dx: Type 2 DM - Controlled E11.9 Insulin: No - nitroglycerin sublingual (NITROQUICK) 0.4 mg SL tablet Dissolve 1 tablet under the tongue as needed. DISSOLVE ONE(1) TABLET UNDER THE TOUNGUE NEEDED FOR CHEST PAIN,EVERY 5 MIN X3 - Lancets lancets Test blood sugar(s) 1 times daily. Dx: Type 2 DM - Controlled E11.9 Insulin: No - COMPOUNDED PRESCRIPTION Prodigy Glucometer test strips Test once daily. Dx: E11.9 Insulin: No - Cholecalciferol, Vitamin D3, 1,000 unit cap Take 1 capsule by mouth once daily. - COMPOUNDED PRESCRIPTION Lancets Test once daily. Dx: E11.9 Insulin: No - Cranberry 500 mg cap Take 1 tablet by mouth once daily. - XALATAN 0.005 % EYE DROPS one drop each eye at [facility] Problem List As Of Date 08/21/2024 Noted Resolved Mixed hyperlipidemia [E78.2] 01/07/2005 Type 2 diabetes mellitus with stage 3b chronic *01/07/2005 Hypothyroidism [E03.9] 1 (more content not included)... Normal [facility] Carbon dioxide, total [Moles /volume] in Central venous bloodOrdered By: Safia Montgomery on 08-21-2024 CO2 [Moles/Vol] 23.1 mmol/L 21.0-32.0 [facility] Chloride assayOrdered By: Eduin Montgomery on 08-21-2024 Chloride [Moles/Vol] 94 mmol/L Low 98-108 [facility] Glomerular filtration rate ( GFR) estimation/1.73 sq m using serum, plasma, or whole bOrdered By: Safia Montgomery on 08-21-2024 GFR/1.73 sq M.predicted among non-blacks MDRD (S/P/Bld) [Vol rate/Area] 40 mL/min/{1.73_m2} Low >60 [facility] Comment on above: mL/min/1.73m2 CKD-EP I Creatinine Equation (2020) PTHINon 08-21-2024 PTH 177 pg/mL High 11-61 [facility] Comment on above: Performed By: #### L 501.0900, L500.3600, L509.1000 #### [facility] [address] [place], [address] Potassium measurement (mass/ volume)Ordered By: Safia Montgomery on 08-21-2024 Potassium (Unsp spec) [Mass/Vol] 4.7 mmol/L 3.3-5.1 [facility] Comment on above: Hemolysis present, R esults could be affected. Protein+Creatinine Ratio,Uri neon 08-21-2024 PROT:CRE RATIO 483 mg/g CRE High 0-200 [facility] Comment on above: Performed By: #### L 501.0900, L500.3600, L509.1000 #### [facility] [address] [place], [address] Protein (U) [Mass/Vol] 9.0 mg/dL Normal 0.0-12.0 [facility] Comment on above: Performed By: #### L 501.0900, L500.3600, L509.1000 #### [facility] [address] [place], [address] UR CREAT 18.70 mg/dL Low 28.00-217.00 [facility] Comment on above: Performed By: #### L 501.0900, L500.3600, L509.1000 #### [facility] [address] [place], [address] Random urine creatinine rajesh urement (mass/volume)Ordered By: Safia Montgomery on 08-21-2024 Creatinine Unsp time (U) [Mass/Vol] 18.70 mg/dL Low 28.00-217.00 [facility] Renal Profileon 08-21-2024 Albumin [Mass/Vol] 4.2 g/dL Normal 3.4-4.8 [facility] Comment on above: Performed By: #### L 501.0900, L500.3600, L509.1000 #### [facility] [address] [place], [address] BUN/CRE 44.5 RATIO High 10-20 [facility] Comment on above: Performed By: #### L 501.0900, L500.3600, L509.1000 #### [facility] [address] [place], [address] Calcium [Mass/Vol] 9.5 mg/dL Normal 7.6-11.0 [facility] Comment on above: Performed By: #### L 501.0900, L500.3600, L509.1000 #### [facility] [address] [place], [address] Chloride [Moles/Vol] 94 mmol/L Low 98-108 [facility] Comment on above: Performed By: #### L 501.0900, L500.3600, L509.1000 #### [facility] [address] [place], [address] CO2 [Moles/Vol] 23.1 mmol/L Normal 21.0-32.0 [facility] Comment on above: Performed By: #### L 501.0900, L500.3600, L509.1000 #### [facility] [address] [place], [address] Creatinine [Mass/Vol] 1.30 mg/dL High 0.70-1.20 [facility] Comment on above: Performed By: #### L 501.0900, L500.3600, L509.1000 #### [facility] [address] [place], [address] GAP 15 Normal 5-15 [facility] Comment on above: Performed By: #### L 501.0900, L500.3600, L509.1000 #### [facility] [address] [place], [address] GFR/1.73 sq M.predicted among non-blacks MDRD (S/P/Bld) [Vol rate/Area] 40 mL/min/{1.73_m2} Low >60 [facility] Comment on above: Result Comment: mL/m in/1.73m2 CKD-EPI Creatinine Equation (2020) Performed By: #### L 501.0900, L500.3600, L509.1000 #### [facility] [address] [place], [address] Glucose [Mass/Vol] 439 mg/dL High 70-99 [facility] Comment on above: Performed By: #### L 501.0900, L500.3600, L509.1000 #### [facility] [address] [place], [address] Potassium [Moles/Vol] 4.7 mmol/L Normal 3.3-5.1 [facility] Comment on above: Result Comment: Hemo lysis present, Results??could be affected. ?? Performed By: #### L 501.0900, L500.3600, L509.1000 #### [facility] [address] [place], [address] Sodium [Moles/Vol] 132 mmol/L Low 133-145 [facility] Comment on above: Performed By: #### L 501.0900, L500.3600, L509.1000 #### [facility] [address] [place], [address] Urea nitrogen [Mass/Vol] 58 mg/dL High 4-19 [facility] Comment on above: Performed By: #### L 501.0900, L500.3600, L509.1000 #### [facility] [address] [place], [address] Serum creatinine measurement (mass/volume)Ordered By: Safia Montgomery on 08-21-2024 Creatinine [Mass/Vol] 1.30 mg/dL High 0.70-1.20 [facility] Serum glucose measurement (m ass/volume)Ordered By: Safia Montgomery on 08-21-2024 Glucose [Mass/Vol] 439 mg/dL High 70-99 [facility] Serum or plasma albumin rajesh urement (mass/volume)Ordered By: Safia Montgomery on 08-21-2024 Albumin [Mass/Vol] 4.2 g/dL 3.4-4.8 [facility] Serum or plasma calcium rajesh urement (mass/volume)Ordered By: Safia Montgomery on 08-21-2024 Calcium [Mass/Vol] 9.5 mg/dL 7.6-11.0 [facility] Serum or plasma urea nitroge n measurement (mass/volume)Ordered By: Safia Montgomery on 08-21-2024 Urea nitrogen [Mass/Vol] 58 mg/dL High 07-01 [facility] Sodium levelOrdered By: Edilia Montgomery on 08-21-2024 Sodium [Moles/Vol] 132 mmol/L Low 133-145 [facility] Urine protein measurement (m ass/volume)Ordered By: Safia Montgomery on 08-21-2024 Protein (U) [Mass/Vol] 9.0 mg/dL 0.0-12.0 [facility] Urine protein/creatinine mas s ratioOrdered By: Safia Montgomery on 08-21-2024 Protein/Creatinine (U) [Mass ratio] 483 mg/g CRE High 0-200 [facility] CNCOon 07-11-2024 CNCO Letter Text Normal [facility] CNOVon 07-11-2024 CNOV Office Visit (FAMPWS ) NEELAM RYAN ([id number]) 1935 F Date Time Provider Department 07/11/24 1:40 PM [facility] During your visit today, we recorded the following information about you: Pulse Respiration Blood pressure Weight 78/minute 16/minute 124/64 68 kg Frank Fuentes MD 07/11/2024 3:11 PM Signed Chief Complaint Patient presents with: abnormal mini cog follow up HPI Neelam Ryan is a 89 year old female who presents here today for Above Complaints.. Here today for further evaluation of abnormal minicog score 2/5 on 06/27. States that she has noticed some mild memory impairment with aging including: difficulty coming up with words, remembering names of acquaintances. Denies sudden change in memory, difficulty managing her medications or finances, getting lost while driving. Able to perform her ADLs except for yardwork. Reports no one in family has expressed concern for her memory. Admits to intention tremor. Denies headache, vision changes, slurred speech, facial droop, numbness/tingling/weakn ess, hallucinations, slowed gait/movement. Uses walker for ambulation, but denies postural instability. Past medical history, appointments, medications, allergies reviewed. Previous Medical History PAST MEDICAL HISTORY Diagnosis Date Basal cell carcinoma Dr. Lambert Cholecystitis, unspecified Chronic kidney disease (CKD), stage IV (severe) (HCC) Dr. Montgomery Coronary atherosclerosis of unspecified type of vessel, tulalip or graft Dr. Issac Hernandes of both feet Multinodular goiter 05/21/2016 Osteoarthritis Other and unspecified anemias Pure hypercholesterolemia Sciatica Swelling of lower extremity Type II or unspecified type diabetes mellitus without mention of complication, not stated as uncontrolled Podiatry-Dr. Mcgee Unspecified essential hypertension Unspecified hypothyroidism Previous Surgical History PAST SURGICAL HISTORY Procedure Laterality Date COLONOSCOPY FLX DX W/COLLJ SPEC WHEN PFRMD 01/30/2005 Colonoscopy COLONOSCOPY FLX DX W/COLLJ SPEC WHEN PFRMD 08/05/2015 Colonoscopy ESOPHAGOGASTRODUODENOSC OPY TRANSORAL DIAGNOSTIC 01/30/2005 EGD HEART CATHETERIZATION 09/2018 angiopasty of circumflex, 75% stenosis. LAD 80%. LAPAROSCOPY SURG CHOLECYSTECTOMY 12/02/2005 Cholecystectomy, lap PAST SURGICAL HISTORY OF hernia PAST SURGICAL HISTORY OF carpal tunnel both hands PAST SURGICAL HISTORY OF fingers different times PAST SURGICAL HISTORY OF trigger finger PAST SURGICAL HISTORY OF 06/21/2006 heart cath with stent placement [facility] PAST SURGICAL HISTORY OF 04/24/2008 vaginal hysterectomy, bladder suspension, rectocele PAST SURGICAL HISTORY OF 11/20/11 cardiac cath; percutaneous transluminal coronary angioplasty with stent @ [facility] PAST SURGICAL HISTORY OF left wrist surgery TOTAL THYROID LOBECTOMY UNI W/WO ISTHMUSECTOMY Right 05/21/2016 TRANSCATH STENT INIT VESSEL,PERCUT 08/18 Transcath stent init vessel percut LAD [place] [facility] Family History FAMILY HISTORY Problem Relation Age of Onset Diabetes Mother CAD, ANGIOPLASTY Diabetes Father DC other (DC) Brother other (OHS) Sister other (DC) Brother Heart Sister diabetic Heart Sister Heart Sister diabetic Heart Sister diabetic Patient Allergies ALLERGIES Allergen Reactions Accupril [Quinapril* Cough Sulfa (Sulfonamide * Hives Atorvastatin Myalgia Benzonatate Hives Gabapentin Other: See Comments fatigue Simvastatin Other: See Comments Current Medications Current Outpatient Medications on File Prior to Visit Medication Sig semaglutide (OZEMPIC) 2 mg/dose (8 mg/3 mL) pen injector Inject 2 mg subcutaneously one time a week. amLODIPine (NORVASC) 2.5 mg tablet Take 1 tablet by mouth once daily. citalopram (CELEXA) 20 mg tablet Take 1 tablet by mouth once daily. folic acid 1 mg tablet Take 2 tablets by mouth once daily. glipiZIDE (GLUCOTROL) 10 mg tablet Take 1 tablet (10 mg) by mouth two times a day before meals. potassium chloride (K-TAB) 10 mEq tablet Take 1 tablet by mouth daily with breakfast. vit C,U-Ky-awbkt-lutein-joesph joi (PRESERVISION AREDS-2) 250-90-40-1 mg Take 1 capsule by mouth two times a day with meals. furosemide (LASIX) 40 mg tablet Take 1 tablet by mouth once daily. pantoprazole DR (PROTONIX) 40 mg tablet Take 1 tablet by mouth daily before breakfast. Take on empty stomach, 1/2 hr before meal. carvedilol (COREG) 25 mg tablet Take 1 tablet by mouth two times a day. isosorbide mononitrate ER (IMDUR) 60 mg 24 hr tablet Take 1 tablet by mouth once daily. levothyroxine (LEVOXYL) 75 mcg tablet Take 1 tablet by mouth once daily. pravastatin (PRAVACHOL) 80 mg tablet Take 1 tablet by mouth daily at bedtime. aspirin 81 mg cap Take 81 mg by mouth once daily. mecobalamin, v (more content not included)... Normal [facility] CNOVon 06-27-2024 [facility] Office Visit (FAMPWS ) NEELAM RYAN ([id number]) 1935 F Date Time Provider Department 06/27/24 12:40 PM FRANK FUENT[facility] During your visit today, we recorded the following information about you: Pulse Respiration Blood pressure Weight 80/minute 16/minute 112/60 68.9 kg Frank Fuentes MD 06/27/2024 3:15 PM Signed Chief Complaint Patient presents with: Follow Up: 3 month HPI Neelam Lundberg Connor is a 89 year old female who presents here today for Above Complaints. Patient has been in good health without recent hospitalizations, ER visits. DIABETES MELLITUS: Ms. Ryan was last seen 3 months ago. Since our last visit she denies excessive thirst or increased frequency of urination, numbness, tingling or pain in extremities, new or unusual visual symptoms, and low sugar/hypoglycemic reactions. Follows a diabetic diet most of the time. She is compliant with medication(s) and is tolerating med(s) without any side effects. She reports checking her glucose on a once a day schedule with sugars in the fasting 170-200 range in the last 2-3 weeks. States that she was still taking her Januvia with Ozempic up until that time. Patient's last HgA1C was Hemoglobin A1C (%) Date Value 06/23/2024 8.8 03/29/2024 8.3 12/12/2020 7.8 06/11/2020 8.1 ) Last Ophthalmology exam was within the past 12 months Last Podiatry exam was within the past 3 months Depression symptoms well controlled on Celexa. Denies SI/HI. BP well controlled on current regimen today. Not monitoring on a regular basis at home. Denies HTN symptoms. No changes to regimen at OV with [facility] cardiology in April for her history of CAD with triple vessel disease. No change in regimen at last OV with Dr. Montgomery in December for CKD stage IV. F/u recommended in 8 months. Notes that she was cleaning her shower more than 2 months ago and fell backwards out of it. Did not hit her head. No LOC. Had bruise on her left shoulder and right leyva which has resolved. No pain today. Using walker outside of home and cane in her home for ambulation and feels steady. Minicog today abnormal at 2 out of 5. States memory does seem to be going. Past medical history, appointments, medications, allergies reviewed. Previous Medical History PAST MEDICAL HISTORY Diagnosis Date Basal cell carcinoma Dr. Lambert Cholecystitis, unspecified Chronic kidney disease (CKD), stage IV (severe) ([facility]) Dr. Montgomery Coronary atherosclerosis of unspecified type of vessel, tulalip or graft Dr. Issac Pulliam Hammertoes of both feet Multinodular goiter 05/21/2016 Osteoarthritis Other and unspecified anemias Pure hypercholesterolemia Sciatica Swelling of lower extremity Type II or unspecified type diabetes mellitus without mention of complication, not stated as uncontrolled Podiatry-Dr. Mcgee Unspecified essential hypertension Unspecified hypothyroidism Previous Surgical History PAST SURGICAL HISTORY Procedure Laterality Date COLONOSCOPY FLX DX W/COLLJ SPEC WHEN PFRMD 01/30/2005 Colonoscopy COLONOSCOPY FLX DX W/COLLJ SPEC WHEN PFRMD 08/05/2015 Colonoscopy ESOPHAGOGASTRODUODENOSC OPY TRANSORAL DIAGNOSTIC 01/30/2005 EGD HEART CATHETERIZATION 09/2018 angiopasty of circumflex, 75% stenosis. LAD 80%. LAPAROSCOPY SURG CHOLECYSTECTOMY 12/02/2005 Cholecystectomy, lap PAST SURGICAL HISTORY OF hernia PAST SURGICAL HISTORY OF carpal tunnel both hands PAST SURGICAL HISTORY OF fingers different times PAST SURGICAL HISTORY OF trigger finger PAST SURGICAL HISTORY OF 06/21/2006 heart cath with stent placement [facility] PAST SURGICAL HISTORY OF 04/24/2008 vaginal hysterectomy, bladder suspension, rectocele PAST SURGICAL HISTORY OF 11/20/11 cardiac cath; percutaneous transluminal coronary angioplasty with stent @ [facility] PAST SURGICAL HISTORY OF left wrist surgery TOTAL THYROID LOBECTOMY UNI W/WO ISTHMUSECTOMY Right 05/21/2016 TRANSCATH STENT INIT VESSEL,PERCUT 08/18 Transcath stent init vessel percut LAD [place] [facility] Family History FAMILY HISTORY Problem Relation Age of Onset Diabetes Mother CAD, ANGIOPLASTY Diabetes Father DC other (DC) Brother other (OHS) Sister other (DC) Brother Heart Sister diabetic Heart Sister Heart Sister diabetic Heart Sister diabetic Patient Allergies ALLERGIES Allergen Reactions Accupril [Quinapril* Cough Sulfa (Sulfonamide * Hives Atorvastatin Myalgia Benzonatate Hives Gabapentin Other: See Comments fatigue Simvastatin Other: See Comments Current Medications Current Outpatient Medications on File Prior to Visit Medication Sig amLODIPine (NORVASC) 2.5 mg tablet Take 1 tablet by mouth once daily. citalopram (CELEXA) 20 mg tablet Take 1 tablet by mouth once daily. semaglutide (OZEMPIC) 1 mg/dose (4 mg/3 mL) pen Inject 1 mg sub (more content not included)... Normal [facility] ALBUMIN/CREATININE RATIO, UR INEon 06-23-2024 Albumin DL <= 20 mg/L (U) [Mass/Vol] 25.3 mg/L Normal [facility] Comment on above: Order Comment: Speci men Type: URINE SPECIMENOrdering Facility: [facility] Address: [address] [place] [address] Performed By: #### U ACR ####[facility] LABCLIA [id number] [place] [id number] [place] Albumin/Creatinine (U) [Mass ratio] 69 mg/g High <30 [facility] Comment on above: Order Comment: Speci men Type: URINE SPECIMENOrdering Facility: [facility] Address: [address] [place] [address] Result Comment: Adul t Male and Female Nephrotic Criteria: <30 mg/g is considered normal to mildly increased 30-300 mg/g is considered moderately increased >300 mg/g is considered severely increased KDIGO. (2013). KDIGO 2012 Clinical Practice Guideline for the Evaluation and Management of Chronic Kidney Disease. Official Journal of the International Society of Nephrology, 3(1), 1-150. Performed By: #### U ACR ####[facility] LABCLIA [id number] [place] [address] [place] Creatinine (U) [Mass/Vol] 36.8 mg/dL Normal 20.0-300.0 [facility] Comment on above: Order Comment: Speci men Type: URINE SPECIMENOrdering Facility: [facility] Address: [address] [place] [address] Performed By: #### U ACR ####[facility] LABCLIA [id number] [place] [address] [place] Comprehensive metabolic 2000 panelon 06-23-2024 Albumin [Mass/Vol] 4.4 g/dL Normal 3.9-4.9 [facility] Comment on above: Order Comment: Speci men Type: BLOOD SPECIMENOrdering Facility: [facility] Address: [address] [place] [address] Performed By: #### L IPNF, 44000-2 ####[facility]CLIA [id number] [place] [address] [place] ALP [Catalytic activity/Vol] 56 U/L Normal 34-123 [facility] Comment on above: Order Comment: Speci men Type: BLOOD SPECIMENOrdering Facility: [facility] Address: [address] [place] [address], [place] [address] Performed By: #### L IPNF, 58155-8 ####[facility] LABCLIA [id number] [address] [address] [place] ALT [Catalytic activity/Vol] 16 U/L Normal 7-38 [facility] Comment on above: Order Comment: Speci men Type: BLOOD SPECIMENOrdering Facility: [facility] Address: [address] [place], [place] [address] Performed By: #### L IPNF, 72225-9 ####[facility]CLIA [id number] [address] [address] [place] Anion gap [Moles/Vol] 12 mmol/L Normal 8-15 [facility] Comment on above: Order Comment: Speci men Type: BLOOD SPECIMENOrdering Facility: [facility] Address: [address] [place], [place] [address] Performed By: #### L IPNF, 46652-7 ####[facility]CLIA [id number] [address] [address] [place] AST [Catalytic activity/Vol] 20 U/L Normal 13-35 [facility] Comment on above: Order Comment: Speci men Type: BLOOD SPECIMENOrdering Facility: [facility] Address: [address] [place], [place] [address] Performed By: #### L IPNF, 35060-1 ####[facility]CLIA [id number] [address] [address] [place] Bilirubin [Mass/Vol] 0.6 mg/dL Normal 0.2-1.3 [facility] Comment on above: Order Comment: Speci men Type: BLOOD SPECIMENOrdering Facility: [facility] Address: [address] [place], [place] [address] Performed By: #### L IPNF, 47940-8 ####[facility] LABCLIA [id number] [address] [address] [place] Calcium [Mass/Vol] 10.2 mg/dL Normal 8.5-10.2 [facility] Comment on above: Order Comment: Speci men Type: BLOOD SPECIMENOrdering Facility: [facility] Address: [address] [place] [address] Performed By: #### L IPNF, ####[facility] LABCLIA [id number] [address] [address] [place] Chloride [Moles/Vol] 98 mmol/L Normal 98-107 [facility] Comment on above: Order Comment: Speci men Type: BLOOD SPECIMENOrdering Facility: [facility] Address: [address] [place] [address] Performed By: #### L IPNF, 31015-0 ####[facility] LABCLIA [id number] [place] [id number] [place] CO2 [Moles/Vol] 25 mmol/L Normal 22-30 [facility] Comment on above: Order Comment: Speci men Type: BLOOD SPECIMENOrdering Facility: [facility] Address: [address] [place] [address] Performed By: #### L IPNF, 54217-0 ####[facility] LABCLIA [id number] [place] [id number] [place] Creatinine [Mass/Vol] 1.35 mg/dL High 0.58-0.96 [facility] Comment on above: Order Comment: Speci men Type: BLOOD SPECIMENOrdering Facility: [facility] Address: [address] [place] [address] Performed By: #### L IPNF, 26344-5 ####[facility] LABCLIA [id number] [address] [address] [place] Creatinine and Glomerular filtration rate.predicted panel (S/P/Bld) 38 mL/min/1.73m??? Low >=60 [facility] Comment on above: Order Comment: Yeimi paulson Type: BLOOD SPECIMENOrdering Facility: [facility] Address: [address] [place] [address] Result Comment: Silvia mated Glomerular Filtration Rate (eGFR) is calculated using the 2020 CKD-EPI creatinine equation. This equation utilizes serum creatinine, sex, and age as parameters. The creatinine assay has traceable calibration to isotope dilution-mass spectrometry. Refer to KDIGO guidelines for clinical interpretation. In patients with unstable renal function, e.g. those with acute kidney injury, the eGFR may not accurately reflect actual GFR. Performed By: #### L IP, 19707-0 ####[facility] LABCLIA [id number] [place] [address] [place] Glucose [Mass/Vol] 185 mg/dL High 74-99 [facility] Comment on above: Order Comment: Yeimi paulson Type: BLOOD SPECIMENOrdering Facility: [facility] Address: [address] [place] [address] Result Comment: The [place] Diabetes Association (ADA) provides guidance for cutoff values for fasting glucose and random glucose. The ADA defines fasting as no caloric intake for at least 8 hours. Fasting plasma glucose results between 100 to 125 mg/dL indicate increased risk for diabetes (prediabetes). Fasting plasma glucose results greater than or equal to 126 mg/dL meet the criteria for diagnosis of diabetes. In the absence of unequivocal hyperglycemia, results should be confirmed by repeat testing. In a patient with classic symptoms of hyperglycemia or hyperglycemic crisis, random plasma glucose results greater than or equal to 200 mg/dL meet the criteria for diagnosis of diabetes. Reference: Standards of Medical Care in Diabetes 2016, [place] [employer] Association. Diabetes Care. 2016.39(Suppl 1). Performed By: #### L IP, 84799-6 ####[facility] LABIA [id number] [place] [address] [place] Potassium [Moles/Vol] 4.7 mmol/L Normal 3.7-5.1 [facility] Comment on above: Order Comment: Yeimi paulson Type: BLOOD SPECIMENOrdering Facility: [facility] Address: [address] [place] [address] Performed By: #### L IPNF, 18700-9 ####[facility] LABCLIA [id number] [address] [address] [place] Protein [Mass/Vol] 7.5 g/dL Normal 6.3-8.0 [facility] Comment on above: Order Comment: Speci men Type: BLOOD SPECIMENOrdering Facility: [facility] Address: [address] [place] [address] Performed By: #### L IPNF, 63220-4 ####[facility] LABCLIA [id number] [place] [id number] [place] Sodium [Moles/Vol] 135 mmol/L Low 136-144 [facility] Comment on above: Order Comment: Speci men Type: BLOOD SPECIMENOrdering Facility: [facility] Address: [address] [place] [address] Performed By: #### L IPNF, 65205-4 ####[facility] LABCLIA [id number] [address] [address] [place] Urea nitrogen [Mass/Vol] 57 mg/dL High 7-21 [facility] Comment on above: Order Comment: Speci men Type: BLOOD SPECIMENOrdering Facility: [facility] Address: [address] [place] [address] Performed By: #### L IPNF, 27263-7 ####[facility] LABCLIA [id number] [address] [address] [place] HbA1c (Bld)on 06-23-2024 Average glucose Estimated from glycated hemoglobin (Bld) [Mass/Vol] 206 mg/dL Normal [facility] Comment on above: Order Comment: Speci men Type: BLOOD SPECIMENOrdering Facility: [facility] Address: [address] [place] [address] Result Comment: eAG: (Estimated average glucose) is a calculated value from HgbA1c and is security systems sales representative of the average blood glucose level in the last 2-3 month period. Performed By: #### 5 5454-3 ####[facility] LABCLIA [id number] [place] [address] [place] HbA1c (Bld) [Mass fraction] 8.8 % High 4.3-5.6 [facility] Comment on above: Order Comment: Speci men Type: BLOOD SPECIMENOrdering Facility: [facility] Address: [address] [place] [address] Result Comment: Amer ican Diabetes Association guidelines indicate that patients with HgbA1c in the range 5.7-6.4% are at increased risk for development of diabetes, and intervention by lifestyle modification may be beneficial. HgbA1c greater or equal to 6.5% is considered diagnostic of diabetes. Performed By: #### 5 5454-3 ####[facility] LABCLIA [id number] [place] [address] [place] LIPID PANEL, NONFASTINGon Cholesterol [Mass/Vol] 132 mg/dL Normal <200 [facility] Comment on above: Order Comment: Speci men Type: BLOOD SPECIMENOrdering Facility: [facility] Address: [address] [place] [address] Result Comment: <200 mg/dL, Desirable 200-239 mg/dL, Borderline high >239 mg/dL, High Performed By: #### L IPSHY, 59029-0 ####[facility] LABCLIA [id number] [place] [address] [place] HDL CHOLESTEROL, NF 53 mg/dL Normal >39 [facility] Comment on above: Order Comment: Speci men Type: BLOOD SPECIMENOrdering Facility: [facility] Address: [address] [place] [address] Result Comment: 40-5 9 mg/dL, Acceptable >59 mg/dL, High: Negative risk factor for coronary heart disease <40 mg/dL, Low: Positive risk factor for coronary heart disease Performed By: #### L IPSHY, 29006-5 ####[facility] LABCLIA [id number] [place] [address] [place] LDL CHOLESTEROL, NF 59 mg/dL Normal <100 [facility] Comment on above: Order Comment: Yeimi paulson Type: BLOOD SPECIMENOrdering Facility: [facility] Address: [address] [place] [address] Result Comment: <100 mg/dL, Optimal 100-129 mg/dL, Near optimal/above optimal 130-159 mg/dL, Borderline high 160-189 mg/dL, High >189 mg/dL, Very high Secondary prevention optimal LDL Cholesterol levels are recommended to be < 70 mg/dL Performed By: #### L CATRACHITA, 70664-3 ####[facility] [id number] [address] OF [facility] LDL/HDL RATIO, NF 1.11 mg/dL Normal <2.54 [facility] Comment on above: Order Comment: Yeimi paulson Type: BLOOD SPECIMENOrdering Facility: [facility] Address: [address] [place] [address] Result Comment: Refleeanna leungce: 1. National Cholesterol Education Program ATP III Guideline At-A-Glance Quick Desk Reference: National Heart, Lung, and Blood [place]. National Institutes of Health. 2001: NIH Publication No. 01-3305. 2. An International Atherosclerosis Society position paper: global recommendations for the management of dyslipidemia: executive summary, Atherosclerosis. 2014: 232(2):410-413. Performed By: #### L CATRACHITA, 42691-7 ####[facility] [id number] [address] [place] NON HDL CHOL, NF 79 mg/dL Normal <130 [facility] Comment on above: Order Comment: Yeimi men Type: BLOOD SPECIMENOrdering Facility: [facility] Address: [address] [place] [address] Result Comment: <130 mg/dL, Optimal 130-159 mg/dL, Near optimal/above optimal 160-189 mg/dL, Borderline high 190-219 mg/dL, High >219 mg/dL, Very high Secondary prevention optimal non HDL Cholesterol levels are recommended to be <100 mg/dL Performed By: #### L IPNF, 42083-0 ####[facility] LABCLIA [id number] [address] OF [place] T CHOL/HDL RATIO NF 2.49 mg/dL Normal <5.10 [facility] Comment on above: Order Comment: Speci men Type: BLOOD SPECIMENOrdering Facility: [facility] Address: [address] [place] [address] Performed By: #### L IPNF, 38897-9 ####[facility] LABCLIA [id number] [address] OF [facility] TRIGLYCERIDES, NF 102 mg/dL Normal <150 [facility] Comment on above: Order Comment: Speci men Type: BLOOD SPECIMENOrdering Facility: [facility] Address: [address] [place] [address] Result Comment: <150 mg/dL, Normal 150-199 mg/dL, Borderline high 200-499 mg/dL, High >499 mg/dL, Very high Performed By: #### L IPSHY, 19867-6 ####[facility] LABCLIA [id number] [address] [place] VLDL CHOLESTEROL, NF 20 mg/dL Normal <30 [facility] Comment on above: Order Comment: Speci men Type: BLOOD SPECIMENOrdering Facility: [facility] Address: [address] [place] [address] Performed By: #### L IPNF, 71501-4 ####[facility] LABCLIA [id number] [address] [place] CNOVon 06-22-2024 CNOV Office Visit (PODIWS ) CONNORNEELAM NGUYEN ([id number]) 1935 F Date Time Provider Department 06/22/24 1:00 PM KAROLINA MCGEE During your visit today, we recorded the following information about you: Marisol Hu, RN 06/22/2024 1:20 PM Signed Patient presents with: Left Foot - Established Patient, Follow Up, Diabetic Foot Check Right Foot - Established Patient, Follow Up, Diabetic Foot Check Patient presents for follow up diabetic foot/nail care. Also due for a diabetic foot exam. KASANDRA 03/21/24 Karolina Mcgee 06/22/2024 1:20 PM Signed Last saw pcp: 03/29/24 Subjective: This 89 year old female presents to clinic for diabetic foot check. Patient has the following complaints: painful toenails. . Patient admits to being diabetic for multiple years now. Patient -B/T/N in feet at this time. Patient -pain in legs when walking. No other pedal complaints at this time. No change in medications or medical history since last visit. PAIN EVALUATION No data found in the last 1 encounters. Hemoglobin A1C (%) Date Value 03/29/2024 8.3 12/28/2023 8.3 09/22/2023 8.8 06/24/2023 8.9 03/24/2023 7.6 12/12/2020 7.8 06/11/2020 8.1 12/01/2019 7.2 08/30/2019 7.0 04/17/2019 7.2 PCP: Frank Fuentes MD PAST MEDICAL HISTORY Diagnosis Date Basal cell carcinoma Dr. Lambert Cholecystitis, unspecified Chronic kidney disease (CKD), stage IV (severe) (HCC) Dr. Montgomery Coronary atherosclerosis of unspecified type of vessel, tulalip or graft Dr. Issac Hernandes of both feet Multinodular goiter 05/21/2016 Osteoarthritis Other and unspecified anemias Pure hypercholesterolemia Sciatica Swelling of lower extremity Type II or unspecified type diabetes mellitus without mention of complication, not stated as uncontrolled Podiatry-Dr. Mcgee Unspecified essential hypertension Unspecified hypothyroidism Current Outpatient Medications Medication Sig amLODIPine (NORVASC) 2.5 mg tablet Take 1 tablet by mouth once daily. citalopram (CELEXA) 20 mg tablet Take 1 tablet by mouth once daily. semaglutide (OZEMPIC) 1 mg/dose (4 mg/3 mL) pen Inject 1 mg subcutaneously one time a week. folic acid 1 mg tablet Take 2 tablets by mouth once daily. glipiZIDE (GLUCOTROL) 10 mg tablet Take 1 tablet (10 mg) by mouth two times a day before meals. potassium chloride (K-TAB) 10 mEq tablet Take 1 tablet by mouth daily with breakfast. vit C,S-Os-riena-lutein-joesph joi (PRESERVISION AREDS-2) 250-90-40-1 mg Take 1 capsule by mouth two times a day with meals. furosemide (LASIX) 40 mg tablet Take 1 tablet by mouth once daily. pantoprazole DR (PROTONIX) 40 mg tablet Take 1 tablet by mouth daily before breakfast. Take on empty stomach, 1/2 hr before meal. carvedilol (COREG) 25 mg tablet Take 1 tablet by mouth two times a day. isosorbide mononitrate ER (IMDUR) 60 mg 24 hr tablet Take 1 tablet by mouth once daily. levothyroxine (LEVOXYL) 75 mcg tablet Take 1 tablet by mouth once daily. pravastatin (PRAVACHOL) 80 mg tablet Take 1 tablet by mouth daily at bedtime. aspirin 81 mg cap Take 81 mg by mouth once daily. mecobalamin, vitamin B12, 1,000 mcg chew Take 1 tablet by mouth once daily. acetaminophen (TYLENOL) 500 mg tablet Take 2 tablets by mouth every 8 hours as needed for pain. blood sugar diagnostic (BLOOD GLUCOSE TEST) test strip Prodigy Glucometer Test blood sugar(s) 1 time daily. Dx: Type 2 DM - Controlled E11.9 Insulin: No nitroglycerin sublingual (NITROQUICK) 0.4 mg SL tablet Dissolve 1 tablet under the tongue as needed. DISSOLVE ONE(1) TABLET UNDER THE TOUNGUE NEEDED FOR CHEST PAIN,EVERY 5 MIN X3 Lancets lancets Test blood sugar(s) 1 times daily. Dx: Type 2 DM - Controlled E11.9 Insulin: No COMPOUNDED PRESCRIPTION Prodigy Glucometer test strips Test once daily. Dx: E11.9 Insulin: No Cholecalciferol, Vitamin D3, 1,000 unit cap Take 1 capsule by mouth once daily. COMPOUNDED PRESCRIPTION Lancets Test once daily. Dx: E11.9 Insulin: No Cranberry 500 mg cap Take 1 tablet by mouth once daily. XALATAN 0.005 % EYE DROPS one drop each eye at [facility] No current facility-administered medications for this visit. ALLERGIES Allergen Reactions Accupril [Quinapril* Cough Sulfa (Sulfonamide * Hives Atorvastatin Myalgia Benzonatate Hives Gabapentin Other: See Comments fatigue Simvastatin Other: See Comments PAST SURGICAL HISTORY Procedure Laterality Date COLONOSCOPY FLX DX W/COLLJ SPEC WHEN PFRMD 01/30/2005 Colonoscopy COLONOSCOPY FLX DX W/COLLJ SPEC WHEN PFRMD 08/05/2015 Colonoscopy ESOPHAGOGASTRODUODENOSC OPY TRANSORAL DIAGNOSTIC 01/30/2005 EGD HEART CATHETERIZATION 09/2018 angiopasty of circumflex, 75% stenosis. LAD 80%. LAPAROSCOPY SURG CHOLECYSTECTOMY 12/02/2005 Cholecystectomy, lap PAST SURGICAL HISTORY OF hernia PAST SURGICAL HISTORY OF carpal tunnel b (more content not included)... Normal [facility] Cardiology Visit Reporton Cardiology Visit Report [facility] [address] [place], [place] [address] OFFICE VISIT Date of Service: 04/27/24 MR#: [id number] Acct: [id number] Name: NEELAM RYAN Rep #: [id number] : 1935 Provider: GUSTAVO kinsey Age/Sex: 89/F Location: [facility] Status: Signed HPI HPI History of Present Illness Details: This is an 89 year old female who presents here today for a cardiovascular follow up visit. She has a history of coronary artery disease with triple-vessel disease. In 2011 she had a DIVING JUDGE followed by stent deployment. Postprocedure she developed hypotension and had a moderate global pericardial effusion and underwent an emergent pericardial window placement. In September 2018 she underwent a cardiac catheterization which demonstrated preserved ejection fraction of 60%, proximal LAD with luminal irregularities in the distal LAD with an 80% stenotic lesion. The circumflex artery had a mid 75% stenotic lesion and this obtuse marginal vessel had a long 95% stenosis of the first obtuse marginal branch. The right coronary artery which was previously stented involving almost the entire vessel had approximately 40 to 50% in-stent stenosis. She underwent angioplasty of the mid circumflex artery alone and medical therapy was recommended for the rest. 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 Patient presented to the emergency room on 01/28/2023 with complaints of shortness of breath. Her BTNP was elevated at 454 and her chest x- ray demonstrated mild to moderate pulmonary edema. Patient was admitted to the hospital for further assessment. She underwent an echocardiogram on 01/29/2023 which demonstrated ejection fraction 55 to 60%. She was given IV Lasix, which improved her shortness of breath. She was discharged home and instructed to follow-up with cardiology. She then presented to the emergency room on 02/05/2023 after falling at home. Her brain CT demonstrated a small subdural hematoma, she was transferred to [facility] for further evaluation. She was seen by a neurosurgeon which stopped her Plavix and aspirin. She had a follow-up visit with Dr. Phillips and she states her subdural hematoma has improved. She denies chest, arm, jaw, or neck discomfort. She denies palpitations. She states intermittent bilateral lower extremity edema at her ankles in the evening. She denies claudication. She denies shortness of breath with activity, shortness of breath at rest, orthopnea, or PND. She sleeps in a recliner due to general comfort. She denies chronic cough. She denies significant, sudden weight gain. She denies lightheadedness, dizziness, near-syncope, or syncope. She denies blood in urine, blood in stool, or epistaxis. He denies fever with chills. She denies myalgia. She states fatigue. Her exercise level has remained stable and uses a walker to help avoid falls. 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 Required: No Is patient in pain?: No Allergies quinapril HCl (From Accupril) Allergy (Verified 04/27/24 11:20) Other Sulfa (Sulfonamide Antibiotics) Allergy (Verified 04/27/24 11:20) Rash Medications ???Medication ???Instructions ???Recorded ???Confirmed ???Type carvedilol 25 mg tablet 25 mg PO BID 01/02/15 04/27/24 His tory cholecalciferol (vitamin D3) 25 1,000 unit PO DAILY 01/02/1504/27 History mcg (1,000 unit) tablet cranberry 500 mg capsule 500 mg PO DAILY 01/02/15 04/27/24 History levothyroxine 75 mcg tablet 75 mcg PO QHS 01/02/15 04/27/24 Hi story pravastatin 80 mg tablet 80 mg PO DAILY 01/02/15 04/27/24 H istory sitagliptin phosphate 50 mg tablet 50 mg PO DAILY 08/22/18 04/27/24 History (Januvia) nitroglycerin 0.4 mg sublingual 0.4 mg sublingual Q5-15M PRN chest 12/07/18 04/27/24 Rx tablet pain #25 tabs citalopram 20 mg tablet 20 mg PO DAILY 08/22/19 04/27/24 H istory folic acid 1 mg tablet 1 mg PO BID 08/22/19 04/27/24 Hist ory latanoprost 0.005 % eye drops 1 drp ophthalmic (eye) .daily qhs 04/04/21 04/27/24 History (Xalatan) eye pantoprazole 40 mg tablet,delayed 40 mg PO DAILY 04/04/21 04/27/24 History release cyanocobalamin (vitamin B-12) 1,000 mcg PO DAILY 05/21/22 History 1,000 mcg capsule isosorbide mononitrate 30 mg 60 mg PO DAILY 09/21/22 04/27/24 H istory tablet,extended release 24 hr vitamins A,C,I-hrxc-clvmcw 4,296 1 cap PO BID 09/21/22 04/27/24 His tory mcg-226 mg-90 mg capsule (PreserVision AREDS) furosemide 40 mg tablet 40 mg PO DAILY 30 days (more content not included)... [facility] 03-30-2024 [facility] NEELAM RYAN ([id number]) 1935 F Date Time Provider Department 03/30/24 FRANK FUENTES During your visit today, we recorded the following information about you: Frank Fuentes MD 03/30/2024 12:25 PM Signed Blood work shows stable uncontrolled diabetes with A1c of 8.3. recommend increasing ozempic to 1 mg weekly dosage. Patient to check fasting sugars and call with updated readings in 2-3 weeks. Will send new rx to requested pharmacy if patient agreeable. Other labs stable/unremarkable. Joceline Varela MA 03/30/2024 1:37 PM Signed Pt notified. Uses [facility]. FABY Selby Christopher B, MD 03/30/2024 1:54 PM Signed Rx sent. In addition to increasing her Ozempic, I would recommend she stop her Januvia. These 2 medications are typically not given together and taking both can increase side effects. I overlooked this when I first started her on the Ozempic. I would still have her call in in 2-3 weeks with update on sugar readings. Marisol Holm RN 03/30/2024 2:07 PM Signed Pt called and is notified of providers results and instructions. Pt voices understanding. MARIVEL Kruse Christopher B, MD 03/30/2024 2:54 PM Signed Reviewed. Allergies As of Date: 03/30/2024 Noted Allergy Reaction ACCUPRIL (QUINAPRIL HCL) 12/24/2004 3 - Cough SULFA (SULFONAMIDE ANTIBIOTICS) 12/24/2004 4 - Hives ATORVASTATIN 01/09/2016 17 - Myalgia BENZONATATE 01/09/2016 4 - Hives GABAPENTIN 01/14/2018 14 - Other: See Comments Comments: fatigue SIMVASTATIN 01/09/2016 14 - Other: See Comments Date Reviewed: 03/29/2024 Reviewed by: Trina Moore LPN - Fully Assessed Reason for Visit: Results [95] Primary Visit Diagnosis:Type 2 diabetes mellitus with stage 3b chronic kidney disease, without long-term current use of insulin (HCC) [E11.22, N18.32] Order(s):semaglutide (OZEMPIC) 1 mg/dose (4 mg/3 mL) penInject 1 mg subcutaneously one time a week.Disp: 3 mLRfl: 0 Prescriptions as of 03/30/2024 - semaglutide (OZEMPIC) 1 mg/dose (4 mg/3 mL) pen Inject 1 mg subcutaneously one time a week. - vit C,V-Eh-lfami-lutein-joesph joi (PRESERVISION AREDS-2) 250-90-40-1 mg Take 1 capsule by mouth two times a day with meals. - furosemide (LASIX) 40 mg tablet Take 1 tablet by mouth once daily. - pantoprazole DR (PROTONIX) 40 mg tablet Take 1 tablet by mouth daily before breakfast. Take on empty stomach, 1/2 hr before meal. - carvedilol (COREG) 25 mg tablet Take 1 tablet by mouth two times a day. - isosorbide mononitrate ER (IMDUR) 60 mg 24 hr tablet Take 1 tablet by mouth once daily. - levothyroxine (LEVOXYL) 75 mcg tablet Take 1 tablet by mouth once daily. - pravastatin (PRAVACHOL) 80 mg tablet Take 1 tablet by mouth daily at bedtime. - amLODIPine (NORVASC) 2.5 mg tablet Take 1 tablet by mouth once daily. - citalopram (CELEXA) 20 mg tablet Take 1 tablet by mouth once daily. - aspirin 81 mg cap Take 81 mg by mouth once daily. - potassium chloride (K-TAB) 10 mEq tablet Take 1 tablet by mouth daily with breakfast. - folic acid 1 mg tablet Take 2 tablets by mouth once daily. - glipiZIDE (GLUCOTROL) 10 mg tablet Take 1 tablet (10 mg) by mouth two times a day before meals. - mecobalamin, vitamin B12, 1,000 mcg chew Take 1 tablet by mouth once daily. - acetaminophen (TYLENOL) 500 mg tablet Take 2 tablets by mouth every 8 hours as needed for pain. - blood sugar diagnostic (BLOOD GLUCOSE TEST) test strip Patito Glucometer Test blood sugar(s) 1 time daily. Dx: Type 2 DM - Controlled E11.9 Insulin: No - nitroglycerin sublingual (NITROQUICK) 0.4 mg SL tablet Dissolve 1 tablet under the tongue as needed. DISSOLVE ONE(1) TABLET UNDER THE TOUNGUE NEEDED FOR CHEST PAIN,EVERY 5 MIN X3 - Lancets lancets Test blood sugar(s) 1 times daily. Dx: Type 2 DM - Controlled E11.9 Insulin: No - COMPOUNDED PRESCRIPTION Prodigy Glucometer test strips Test once daily. Dx: E11.9 Insulin: No - Cholecalciferol, Vitamin D3, 1,000 unit cap Take 1 capsule by mouth once daily. - COMPOUNDED PRESCRIPTION Lancets Test once daily. Dx: E11.9 Insulin: No - Cranberry 500 mg cap Take 1 tablet by mouth once daily. - XALATAN 0.005 % EYE DROPS one drop each eye at [facility] Problem List As Of Date 03/30/2024 Noted Resolved Mixed hyperlipidemia [E78.2] 01/07/2005 Type 2 diabetes mellitus with stage 3b chronic *01/07/2005 Hypothyroidism [E03.9] 01/07/2005 Anemia, unspecified [D64.9] CONSTIPATION NOS [K59.00] 01/23/2005 ESOPHAGEAL REFLUX [K21.9] 01/23/2005 Acute gastritis without mention of hemorrhage [*01/30/2005 12/30/2016 SPINAL STENOSIS-LUMBAR [M48.061] 02/24/2005 SCIATICA [M54.30] 02/24/2005 Calculus of gallbladder with acute cholecystiti*02/24/2005 12/30/2016 Unspecified cardiovascular disease [I25.10] 10/05/2005 12/30/2016 [facility] (more content not included)... Normal [facility] CNOVon 03-29-2024 CNOV Office Visit (FAMPWS ) NEELAM RYAN ([id number]) 1935 F Date Time Provider Department 03/29/24 1:00 PM FRANK FUENTES During your visit today, we recorded the following information about you: Pulse Respiration Blood pressure Weight 80/minute 16/minute 106/62 67.9 kg Frank Fuentes MD 03/29/2024 1:12 PM Signed Chief Complaint Patient presents with: Follow Up: 3 month HPI Neelam Ryan is a 88 year old female who presents here today for 3 month follow up. Patient has been in good health without recent hospitalizations, ER visits, or falls. No concerns today. DIABETES MELLITUS: Ms. Ryan was last seen 3 months ago. Started on Ozempic at last OV. Since our last visit she denies excessive thirst or increased frequency of urination, numbness, tingling or pain in extremities, new or unusual visual symptoms, and low sugar/hypoglycemic reactions. Follows a diabetic diet some of the time. She is compliant with medication(s) and is tolerating med(s) without any side effects. She reports checking her glucose on a once a day schedule with sugars in the fasting 120-160 range typically. Patient's last HgA1C was Hemoglobin A1C (%) Date Value 12/28/2023 8.3 09/22/2023 8.8 12/12/2020 7.8 06/11/2020 8.1 ) Last Ophthalmology exam was within the past 12 months Last Podiatry exam was within the past 3 months Depression symptoms well controlled on Celexa. Denies SI/HI. BP well controlled on current regimen today. Not monitoring on a regular basis. Denies HTN symptoms. F/u appointment with cardiology scheduled on 04/27. Asymptomatic on medical management. Past medical history, appointments, medications, allergies reviewed. Previous Medical History PAST MEDICAL HISTORY Diagnosis Date Basal cell carcinoma Dr. Lambert Cholecystitis, unspecified Chronic kidney disease (CKD), stage IV (severe) ([facility]) Dr. Montgomery Coronary atherosclerosis of unspecified type of vessel, tulalip or graft Dr. Issac Pulliam Hammertoes of both feet Multinodular goiter 05/21/2016 Osteoarthritis Other and unspecified anemias Pure hypercholesterolemia Sciatica Swelling of lower extremity Type II or unspecified type diabetes mellitus without mention of complication, not stated as uncontrolled Podiatry-Dr. Mcgee Unspecified essential hypertension Unspecified hypothyroidism Previous Surgical History PAST SURGICAL HISTORY Procedure Laterality Date COLONOSCOPY FLX DX W/COLLJ SPEC WHEN PFRMD 01/30/2005 Colonoscopy COLONOSCOPY FLX DX W/COLLJ SPEC WHEN PFRMD 08/05/2015 Colonoscopy ESOPHAGOGASTRODUODENOSC OPY TRANSORAL DIAGNOSTIC 01/30/2005 EGD HEART CATHETERIZATION 09/2018 angiopasty of circumflex, 75% stenosis. LAD 80%. LAPAROSCOPY SURG CHOLECYSTECTOMY 12/02/2005 Cholecystectomy, lap PAST SURGICAL HISTORY OF hernia PAST SURGICAL HISTORY OF carpal tunnel both hands PAST SURGICAL HISTORY OF fingers different times PAST SURGICAL HISTORY OF trigger finger PAST SURGICAL HISTORY OF 06/21/2006 heart cath with stent placement [facility] PAST SURGICAL HISTORY OF 04/24/2008 vaginal hysterectomy, bladder suspension, rectocele PAST SURGICAL HISTORY OF 11/20/11 cardiac cath; percutaneous transluminal coronary angioplasty with stent @ [facility] PAST SURGICAL HISTORY OF left wrist surgery TOTAL THYROID LOBECTOMY UNI W/WO ISTHMUSECTOMY Right 05/21/2016 TRANSCATH STENT INIT VESSEL,PERCUT 08/18 Transcath stent init vessel percut LAD [facility] Family History FAMILY HISTORY Problem Relation Age of Onset Diabetes Mother CAD, ANGIOPLASTY Diabetes Father DC other (DC) Brother other (OHS) Sister other (DC) Brother Heart Sister diabetic Heart Sister Heart Sister diabetic Heart Sister diabetic Patient Allergies ALLERGIES Allergen Reactions Accupril [Quinapril* Cough Sulfa (Sulfonamide * Hives Atorvastatin Myalgia Benzonatate Hives Gabapentin Other: See Comments fatigue Simvastatin Other: See Comments Current Medications Current Outpatient Medications on File Prior to Visit Medication Sig OZEMPIC 0.25 mg or 0.5 mg (2 mg/3 mL) pen INJECT 0.25 MG SUBCUTANEOUSLY ONCE A WEEK FOR A MONTH, THEN INJECT 0.5MG ONCE A WEEK THEREAFTER vit C,Z-Cb-wlcoh-lutein-joesph joi (PRESERVISION AREDS-2) 250-90-40-1 mg Take 1 capsule by mouth two times a day with meals. furosemide (LASIX) 40 mg tablet Take 1 tablet by mouth once daily. pantoprazole DR (PROTONIX) 40 mg tablet Take 1 tablet by mouth daily before breakfast. Take on empty stomach, 1/2 hr before meal. SITagliptin phosphate (JANUVIA) 50 mg tablet Take 1 tablet by mouth once daily. carvedilol (COREG) 25 mg tablet Take 1 tablet by mouth two times a day. isosorbide mononitrate ER (IMDUR) 60 mg 24 hr tablet Take 1 tablet by mouth once daily. levothyroxine (LEVOXYL) 75 m (more content not included)... Normal [facility] Comprehensive metabolic 2000 panelon 03-29-2024 Albumin [Mass/Vol] 4.5 g/dL Normal 3.9-4.9 [facility] Comment on above: Order Comment: Speci men Type: BLOOD SPECIMENOrdering Facility: [facility] Address: [address] [place] [address] Performed By: #### 2 4323-8 ####[facility] LABCLIA [id number] [place] [address] [place] ALP [Catalytic activity/Vol] 58 U/L Normal 34-123 [facility] Comment on above: Order Comment: Speci men Type: BLOOD SPECIMENOrdering Facility: [facility] Address: [address] [place] [address] Performed By: #### 2 4323-8 ####[facility] LABCLIA [id number] [place] [address] [place] ALT [Catalytic activity/Vol] 16 U/L Normal 7-38 [facility] Comment on above: Order Comment: Speci men Type: BLOOD SPECIMENOrdering Facility: [facility] Address: [address] [place] [address] Performed By: #### 2 4323-8 ####[facility] LABCLIA [id number] [place] [address] [place] Anion gap [Moles/Vol] 13 mmol/L Normal 8-15 [facility] Comment on above: Order Comment: Speci men Type: BLOOD SPECIMENOrdering Facility: [facility] Address: [address] [place] [address] Performed By: #### 2 4323-8 ####[facility] LABCLIA [id number] [place] [address] [place] AST [Catalytic activity/Vol] 17 U/L Normal 13-35 [facility] Comment on above: Order Comment: Speci men Type: BLOOD SPECIMENOrdering Facility: [facility] Address: [address] [place] [address] Performed By: #### 2 4323-8 ####[facility] LABCLIA [id number] [place] [address] [place] Bilirubin [Mass/Vol] 0.5 mg/dL Normal 0.2-1.3 [facility] Comment on above: Order Comment: Speci men Type: BLOOD SPECIMENOrdering Facility: [facility] Address: [address] [place] [address] Performed By: #### 2 4323-8 ####[facility] LABCLIA [id number] [place] [address] [place] Calcium [Mass/Vol] 9.9 mg/dL Normal 8.5-10.2 [facility] Comment on above: Order Comment: Speci men Type: BLOOD SPECIMENOrdering Facility: [facility] Address: [address] [place] [address] Performed By: #### 2 4323-8 ####[facility] LABCLIA [id number] [place] [address] [place] Chloride [Moles/Vol] 99 mmol/L Normal 98-107 [facility] Comment on above: Order Comment: Speci men Type: BLOOD SPECIMENOrdering Facility: [facility] Address: [address] [place] [address] Performed By: #### 2 4323-8 ####[facility] LABCLIA [id number] [place] [address] [place] CO2 [Moles/Vol] 23 mmol/L Normal 22-30 [facility] Comment on above: Order Comment: Speci men Type: BLOOD SPECIMENOrdering Facility: [facility] Address: [address] [place] [address] Performed By: #### 2 4323-8 ####[facility] LABIA [id number] [place] [address] [place] Creatinine [Mass/Vol] 1.33 mg/dL High 0.58-0.96 [facility] Comment on above: Order Comment: Speci men Type: BLOOD SPECIMENOrdering Facility: [facility] Address: [address] [place] [address] Performed By: #### 2 4323-8 ####[facility] LABIA [id number] [place] [address] [place] Creatinine and Glomerular filtration rate.predicted panel (S/P/Bld) 39 mL/min/1.73m??? Low >=60 [facility] Comment on above: Order Comment: Speci men Type: BLOOD SPECIMENOrdering Facility: [facility] Address: [address] [place] [address] Result Comment: Silvia mated Glomerular Filtration Rate (eGFR) is calculated using the 2020 CKD-EPI creatinine equation. This equation utilizes serum creatinine, sex, and age as parameters. The creatinine assay has traceable calibration to isotope dilution-mass spectrometry. Refer to KDIGO guidelines for clinical interpretation. In patients with unstable renal function, e.g. those with acute kidney injury, the eGFR may not accurately reflect actual GFR. Performed By: #### 2 4323-8 ####[facility] LABIA [id number] [place] [address] [place] Glucose [Mass/Vol] 252 mg/dL High 74-99 [facility] Comment on above: Order Comment: Speci men Type: BLOOD SPECIMENOrdering Facility: [facility] Address: [address] [place] [address] Result Comment: The [place] Diabetes Association (ADA) provides guidance for cutoff values for fasting glucose and random glucose. The ADA defines fasting as no caloric intake for at least 8 hours. Fasting plasma glucose results between 100 to 125 mg/dL indicate increased risk for diabetes (prediabetes). Fasting plasma glucose results greater than or equal to 126 mg/dL meet the criteria for diagnosis of diabetes. In the absence of unequivocal hyperglycemia, results should be confirmed by repeat testing. In a patient with classic symptoms of hyperglycemia or hyperglycemic crisis, random plasma glucose results greater than or equal to 200 mg/dL meet the criteria for diagnosis of diabetes. Reference: Standards of Medical Care in Diabetes 2016, [place] Diabetes Association. Diabetes Care. 2016.39(Suppl 1). Performed By: #### 2 4323-8 ####[facility] LABCLIA [id number] [place] [address] [place] Potassium [Moles/Vol] 4.7 mmol/L Normal 3.7-5.1 [facility] Comment on above: Order Comment: Speci men Type: BLOOD SPECIMENOrdering Facility: [facility] Address: [address] [place] [address] Performed By: #### 2 4323-8 ####[facility] LABIA [id number] [place] [address] [place] Protein [Mass/Vol] 7.4 g/dL Normal 6.3-8.0 [facility] Comment on above: Order Comment: Speci men Type: BLOOD SPECIMENOrdering Facility: [facility] Address: [address] [place] [address] Performed By: #### 2 4323-8 ####[facility] LABCLIA [id number] [place] [address] [place] Sodium [Moles/Vol] 135 mmol/L Low 136-144 [facility] Comment on above: Order Comment: Speci men Type: BLOOD SPECIMENOrdering Facility: [facility] Address: [address] [place] [address] Performed By: #### 2 4323-8 ####[facility] LABCLIA [id number] [place] [address] [place] Urea nitrogen [Mass/Vol] 62 mg/dL High 7-21 [facility] Comment on above: Order Comment: Yeimi paulson Type: BLOOD SPECIMENOrdering Facility: [facility] Address: [address] [place] [address] Performed By: #### 2 4323-8 ####[facility] LABCLIA [id number] [address] [place] HbA1c (Bld)on 03-29-2024 Average glucose Estimated from glycated hemoglobin (Bld) [Mass/Vol] 192 mg/dL Normal [facility] Comment on above: Order Comment: Yeimi paulson Type: BLOOD SPECIMENOrdering Facility: [facility] Address: [address] [place] [address] Result Comment: eAG: (Estimated average glucose) is a calculated value from HgbA1c and is security systems sales representative of the average blood glucose level in the last 2-3 month period. Performed By: #### 5 5454-3 ####[facility] LABIA [id number] [address] HbA1c (Bld) [Mass fraction] 8.3 % High 4.3-5.6 [facility] Comment on above: Order Comment: Yeimi paulson Type: BLOOD SPECIMENOrdering Facility: [facility] Address: [address] [place] [address] Result Comment: [place] Diabetes Association guidelines indicate that patients with HgbA1c in the range 5.7-6.4% are at increased risk for development of diabetes, and intervention by lifestyle modification may be beneficial. HgbA1c greater or equal to 6.5% is considered diagnostic of diabetes. Performed By: #### 5 5454-3 ####[facility] LABIA [id number] [address] [place] CNOVon 03-21-2024 CNOV Office Visit (PODIWS ) CONNORNEELAM ([id number]) 1935 F Date Time Provider Department 03/21/24 1:00 PM KAROLINA MCGEE During your visit today, we recorded the following information about you: Mabel Hamlin LPN 03/21/2024 1:20 PM Signed AMB ROOMING INTAKE FLOWSHEET DATA Patient presents with: Left Foot - Established Patient, Follow Up, Diabetic Foot Care Right Foot - Established Patient, Follow Up, Diabetic Foot Care Mabel ROBIN Hamlin Matthew 03/21/2024 1:20 PM Signed Last saw pcp: 12/28/23 Subjective: Patient presents to clinic c/o painful toenails. They state that the nails are especially painful with shoe gear and pressure. Patient states that nails 1-5 b/l are painful. Patient admits to being diabetic. No other pedal complaints at this time. Patient states no change in medications or medical history since last visit. Objective: Patient presents to clinic ambulating in diabetic shoes Vasc: DP and PT pulses are palpable bilateral. CFT is less than 5 seconds bilateral. Skin temperature is warm to cool proximal to distal bilateral. There is no edema or varicosities noted. Neuro: Protective sensation is intact to the foot and toes when tested with the 5.07 SWM bilateral. Vibratory sensation is decreased at the hallux IPJ bilateral. The hallux is downgoing bilateral. Derm: Nails 1-5 b/l are painful, discolored-yellow, thick, crumbly, dystrophic and with subungal debris. Skin is of normal turgor, texture and hair growth is present bilateral. There are no hyperkeratosis, ulcerations, scars, verruca or other lesions noted. Ortho: Muscle strength is 5/5 for all pedal groups tested. Ankle joint DF is decreased with the knee extended with no pain or crepitus noted. 1st MPJ ROM is decreased bilateral. Hallux valgus deformity is noted b/l. Dorsal medial contracture of right 2nd toe Assessment: (B35.1) Onychomycosis (primary encounter diagnosis) (M79.674) Pain in toe of right foot (M79.675) Pain in toe of left foot (E11.9) Type 2 diabetes mellitus without complication, without long-term current use of insulin ([facility]) (M20.41) Hammer toe of right foot Plan: Patient was seen and evaluated. Nails 1-5 bilateral were debrided in length and thickness. Small bleed to left hallux. Band aide applied. Discussed hammertoe of right 2nd toe. Continue with wider shoes and or gel padding. Other options discussed include surgical correction of hammertoe/bunion vs 2nd toe amputation. Patient was instructed on the continued importance of diabetic foot care along with proper diet and keeping their blood sugar under control to prevent complications. Stressed the importance of avoiding barefoot walking, wearing good shoes and inspection of feet. Patient is to RTC in 3-4 months. ZAINA Gonzalez Matthew 03/21/2024 1:19 PM Signed Diabetes Foot Care Instructions When you have diabetes, proper foot care is very important. Poor foot care may lead to amputation of a foot or leg. As a person with diabetes, you are more vulnerable to foot problems, because diabetes can damage your nerves and reduce blood flow to your feet. Here are some diabetes foot care tips to follow: Wash and Dry Your Feet Daily Use mild soaps Use warm water Pat your skin dry; do not rub. Thoroughly dry your feet. After washing, use lotion on your feet to prevent cracking. Do not put lotion between your toes. Examine Your Feet Each Day Check the tops and bottoms of your feet. Have someone else look at your feet if you cannot see them. Check for dry, cracked skin. Look for blisters, cuts, scratches, or other sores. Check for redness, increased warmth, or tenderness when touching any area of your feet. Check for ingrown toenails, corns, and calluses. If you get a blister or sore from your shoes, do not pop it. Apply a bandage and wear a different pair of shoes. Take Care of Your Toenails Cut toenails after bathing, when they are soft. Cut toenails straight across and smooth with a nail file. Avoid cutting into the corners of toes. Do not cut cuticles. If you have neuropathy (or decreased sensation in your feet) a finish saw operator should always cut your toenails. Be Careful When Exercising Walk and exercise in comfortable shoes. Do not exercise when you have open sores on your feet. Protect Your Feet With Shoes and Socks Never go barefoot. Always protect your feet by wearing shoes or hard-soled slippers or footwear. Avoid shoes with high heels and pointed toes. Avoid shoes that expose your toes or heels (such as open-toed shoes or sandals). These types of shoes increase your risk for injury and potential infections. Try on new footwear with the type of socks you usually wear. Do not wear new shoes for more than an hour at a time. Change your socks daily. Look and feel inside your shoes (more content not included)... Normal [facility] CBC-Complete Blood Cnt No Di ffon 01-06-2024 Erythrocyte distribution width (RBC) [Ratio] 16.4 % High 11.6-14.6 [facility] Comment on above: Performed By: #### L 500.3600, L100.4500, L100.0500, L509.1000, L501.0900, L506.1000 #### [facility] [address] [place], [address] Hematocrit (Bld) [Volume fraction] 30.0 % Low 37-47 [facility] Comment on above: Performed By: #### L 500.3600, L100.4500, L100.0500, L509.1000, L501.0900, L506.1000 #### [facility] [address] [place], [address] Hemoglobin (Bld) [Mass/Vol] 10.1 g/dL Low 12.0-15.0 [facility] Comment on above: Performed By: #### L 500.3600, L100.4500, L100.0500, L509.1000, L501.0900, L506.1000 #### [facility] [address] [place], [address] MCH (RBC) [Entitic mass] 37.5 pg High 27.0-32.0 [facility] Comment on above: Performed By: #### L 500.3600, L100.4500, L100.0500, L509.1000, L501.0900, L506.1000 #### [facility] [address] [place], [address] MCHC (RBC) [Mass/Vol] 33.7 g/dL Normal 32-36 [facility] Comment on above: Performed By: #### L 500.3600, L100.4500, L100.0500, L509.1000, L501.0900, L506.1000 #### [facility] [address] [place], [address] MCV (RBC) [Entitic vol] 111.5 fL High 81-99 [facility] Comment on above: Performed By: #### L 500.3600, L100.4500, L100.0500, L509.1000, L501.0900, L506.1000 #### [facility] [address] [place], [address] Platelet mean volume (Bld) [Entitic vol] 9.7 fL Normal 6.2-12.0 [facility] Comment on above: Performed By: #### L 500.3600, L100.4500, L100.0500, L509.1000, L501.0900, L506.1000 #### [facility] [address] [place], [address] Platelets (Bld) [#/Vol] 362 10*3/uL Normal 150-450 [facility] Comment on above: Performed By: #### L 500.3600, L100.4500, L100.0500, L509.1000, L501.0900, L506.1000 #### [facility] [address] [place], [address] RBC (Bld) [#/Vol] 2.69 10*6/uL Low 4.2-5.4 [facility] Comment on above: Performed By: #### L 500.3600, L100.4500, L100.0500, L509.1000, L501.0900, L506.1000 #### [facility] [address] [place], [address] RDW SD 67.2 fl High 35.1-43.9 [facility] Comment on above: Performed By: #### L 500.3600, L100.4500, L100.0500, L509.1000, L501.0900, L506.1000 #### [facility] [address] [place], [address] WBC (Bld) [#/Vol] 9.2 10*3/uL Normal 4.4-11.0 [facility] Comment on above: Performed By: #### L 500.3600, L100.4500, L100.0500, L509.1000, L501.0900, L506.1000 #### [facility] [address] [place], [address] Differential Commenton 01-05 SMEAR COMMENT Normal [facility] Comment on above: Result Comment: ANIS OCYTOSIS 1+ Performed By: #### L 500.3600, L100.4500, L100.0500, L509.1000, L501.0900, L506.1000 #### [facility] [address] [place], [address] PTHINon 01-06-2024 PTH 152.5 pg/mL High 18.4-80.1 [facility] Comment on above: Performed By: #### L 500.3600, L100.4500, L100.0500, L509.1000, L501.0900, L506.1000 ####[facility] [address] [place], [address] Protein+Creatinine Ratio,Uri neon 01-06-2024 PROT:CRE RATIO Normal 0-200 [facility] Comment on above: Result Comment: UTO Performed By: #### L 500.3600, L100.4500, L100.0500, L509.1000, L501.0900, L506.1000 ####[facility] [address] [place], [address] PROTEIN,UR.RAN. Normal <11.9 [facility] Comment on above: Result Comment: UTO Performed By: #### L 500.3600, L100.4500, L100.0500, L509.1000, L501.0900, L506.1000 ####[facility] [address] [place], [address] UR CREAT Normal NO RANGE EST. [facility] Comment on above: Result Comment: UTO Performed By: #### L 500.3600, L100.4500, L100.0500, L509.1000, L501.0900, L506.1000 ####[facility] [address] [place], [address] Renal Profileon 01-06-2024 Albumin [Mass/Vol] 3.7 g/dL Normal 3.2-5.0 [facility] Comment on above: Performed By: #### L 500.3600, L100.4500, L100.0500, L509.1000, L501.0900, L506.1000 ####[facility] [address] [place], [address] BUN/CRE 38.0 RATIO High 10-20 [facility] Comment on above: Performed By: #### L 500.3600, L100.4500, L100.0500, L509.1000, L501.0900, L506.1000 ####[facility] [address] [place], [address] CA,Total 9.4 mg/dL Normal 8.5-10.1 [facility] Comment on above: Performed By: #### L 500.3600, L100.4500, L100.0500, L509.1000, L501.0900, L506.1000 ####[facility] [address] [place], [address] Chloride [Moles/Vol] 103 mmol/L Normal 98-107 [facility] Comment on above: Performed By: #### L 500.3600, L100.4500, L100.0500, L509.1000, L501.0900, L506.1000 ####[facility] [address] [place], [address] CO2 [Moles/Vol] 24.0 mmol/L Normal 21.0-32.0 [facility] Comment on above: Performed By: #### L 500.3600, L100.4500, L100.0500, L509.1000, L501.0900, L506.1000 ####[facility] [address] [place], [address] Creatinine [Mass/Vol] 1.63 mg/dL High 0.55-1.02 [facility] Comment on above: Result Comment: The validity of the calculated GFR GFRAA in patients over 70 years has not been determined. Clinical correlation is essential. Performed By: #### L 500.3600, L100.4500, L100.0500, L509.1000, L501.0900, L506.1000 ####[facility] [address] [place], [address] EST GFR - AA 38 mL/min Low >60 [facility] Comment on above: Result Comment: Afri can [place] GFR Calc Performed By: #### L 500.3600, L100.4500, L100.0500, L509.1000, L501.0900, L506.1000 ####[facility] [address] [place], [address] GFR/1.73 sq M.predicted among non-blacks MDRD (S/P/Bld) [Vol rate/Area] 32 mL/min/{1.73_m2} Low >60 [facility] Comment on above: Result Comment: Non- GFR Calc Performed By: #### L 500.3600, L100.4500, L100.0500, L509.1000, L501.0900, L506.1000 ####[facility] [address] [place], [address] Glucose [Mass/Vol] 199 mg/dL High 74-106 [facility] Comment on above: Result Comment: Fast ing Glucose result greater than or equal to 126 mg/dL suggests DIABETES MELLITUS per A.D.A. criteria. Performed By: #### L 500.3600, L100.4500, L100.0500, L509.1000, L501.0900, L506.1000 ####[facility] [address] [place], [address] Phosphate [Mass/Vol] 3.9 mg/dL Normal 2.5-4.9 [facility] Comment on above: Performed By: #### L 500.3600, L100.4500, L100.0500, L509.1000, L501.0900, L506.1000 ####[facility] [address] [place], [address] Potassium [Moles/Vol] 4.2 mmol/L Normal 3.5-5.1 [facility] Comment on above: Performed By: #### L 500.3600, L100.4500, L100.0500, L509.1000, L501.0900, L506.1000 ####[facility] [address] [place], [address] Sodium [Moles/Vol] 135 mmol/L Low 136-145 [facility] Comment on above: Performed By: #### L 500.3600, L100.4500, L100.0500, L509.1000, L501.0900, L506.1000 ####[facility] [address] [place], [address] Urea nitrogen [Mass/Vol] 62 mg/dL High 7-18 [facility] Comment on above: Performed By: #### L 500.3600, L100.4500, L100.0500, L509.1000, L501.0900, L506.1000 ####[facility] [address] [place], [id number] Vitamin D,25 Hydroxyon 01-05 Vitamin D 25-OH 50.3 ng/mL Normal [facility] Comment on above: Result Comment: Clarisse min D 25(OH) Status Range Deficiency <20 ng/mL (50nmol/L) Insufficiency 20 - 30 ng/mL (50 - 75 nmol/L) Sufficiency 30 - 100 ng/mL (75 - 250 nmol/L) Toxicity >100 ng/mL (>250 nmol/L) Performed By: #### L 500.3600, L100.4500, L100.0500, L509.1000, L501.0900, L506.1000 ####[facility] [address] [place], [id number] [facility] 12-29-2023 [facility] Telephone (ILIANAWS) NEELAM RYAN ([id number]) 1935 F Date Time Provider Department 12/29/23 FRANK FUENTES During your visit today, we recorded the following information about you: Cesar Paniagua LPN 12/29/2023 8:40 AM Signed ----- Message from Frank Fuentes MD sent at 12/29/2023 8:33 AM EDT ----- Blood work shows stable CKD in stage III range. Recommend low sodium diet <2,000 mg per day, avoidance of NSAIDs, and increased water intake. Diabetes improving, but still uncontrolled on current regimen. Is she interested in trying the Ozempic as discussed in office yesterday? Cesar Paniagua LPN 12/29/2023 8:43 AM Signed Spoke with pt and information listed below given. Pt verbalizes understanding. Pt would like to hold off on the Ozempic for the next 3 months and she can finish medication she has. Pt wanted you to know this am her blood sugar was 195. She reports having chills last night and feel all is related to the vaccines she got yesterday. ROBIN Avery Christopher B, MD 12/29/2023 10:06 AM Signed She would continue to take her other medications, so she would not have to finish any up. I would recommend starting the Ozempic as discussed to try to better control her diabetes. Suyapa Ronquillo LPN 12/29/2023 10:13 AM Signed Phoned patient went over notes from Dr Fuentes with understanding. Patient said to go ahead and send rx to [facility] pharmacy. I was explaining about getting coupon to help with [employer] or [email or web address]. She does not have a smart phone or a computer at all. Frank Fuentes MD 12/29/2023 10:49 AM Signed Rx sent. Start at 0.25 mg weekly and increase to 0.5 mg weekly after 1 month of use. Check sugars fasting and before bed. Call with any readings <80 or with concern for side effects. Please call with updated readings in 3-4 weeks. Marisol Holm RN 12/29/2023 10:57 AM Signed Pt called and is notified of providers results and instructions. Pt voices understanding. Marisol Holm RN Allergies As of Date: 12/29/2023 Noted Allergy Reaction ACCUPRIL (QUINAPRIL HCL) 12/24/2004 3 - Cough SULFA (SULFONAMIDE ANTIBIOTICS) 12/24/2004 4 - Hives ATORVASTATIN 01/09/2016 17 - Myalgia BENZONATATE 01/09/2016 4 - Hives GABAPENTIN 01/14/2018 14 - Other: See Comments Comments: fatigue SIMVASTATIN 01/09/2016 14 - Other: See Comments Date Reviewed: 12/28/2023 Reviewed by: Trina Moore LPN - Fully Assessed Reason for Visit: Results [95] Primary Visit Diagnosis:Type 2 diabetes mellitus with stage 3b chronic kidney disease, without long-term current use of insulin (HCC) [E11.22, N18.32] Order(s):semaglutide (OZEMPIC) 0.25 mg or 0.5 mg (2 mg/3 mL) penInject 0.25 mg subcutaneously one time a week for 30 days, THEN 0.5 mg one time a week.Disp: 9 mLRfl: 0 Prescriptions as of 12/29/2023 - semaglutide (OZEMPIC) 0.25 mg or 0.5 mg (2 mg/3 mL) pen Inject 0.25 mg subcutaneously one time a week for 30 days, THEN 0.5 mg one time a week. - amLODIPine (NORVASC) 2.5 mg tablet Take 1 tablet by mouth once daily. - citalopram (CELEXA) 20 mg tablet Take 1 tablet by mouth once daily. - aspirin 81 mg cap Take 81 mg by mouth once daily. - potassium chloride (K-TAB) 10 mEq tablet Take 1 tablet by mouth daily with breakfast. - folic acid 1 mg tablet Take 2 tablets by mouth once daily. - glipiZIDE (GLUCOTROL) 10 mg tablet Take 1 tablet (10 mg) by mouth two times a day before meals. - furosemide (LASIX) 40 mg tablet Take 1 tablet by mouth once daily. - pantoprazole DR (PROTONIX) 40 mg tablet Take 1 tablet by mouth daily before breakfast. Take on empty stomach, 1/2 hr before meal. - SITagliptin phosphate (JANUVIA) 50 mg tablet Take 1 tablet by mouth once daily. - levothyroxine (LEVOXYL) 75 mcg tablet Take 1 tablet by mouth once daily. - pravastatin (PRAVACHOL) 80 mg tablet Take 1 tablet by mouth daily at bedtime. - isosorbide mononitrate ER (IMDUR) 60 mg 24 hr tablet Take 1 tablet by mouth once daily. - carvedilol (COREG) 25 mg tablet Take 1 tablet by mouth two times a day. - mecobalamin, vitamin B12, 1,000 mcg chew Take 1 tablet by mouth once daily. - acetaminophen (TYLENOL) 500 mg tablet Take 2 tablets by mouth every 8 hours as needed for pain. - blood sugar diagnostic (BLOOD GLUCOSE TEST) test strip Prodigy Glucometer Test blood sugar(s) 1 time daily. Dx: Type 2 DM - Controlled E11.9 Insulin: No - nitroglycerin sublingual (NITROQUICK) 0.4 mg SL tablet Dissolve 1 tablet under the tongue as needed. DISSOLVE ONE(1) TABLET UNDER THE TOUNGUE NEEDED FOR CHEST PAIN,EVERY 5 MIN X3 - Lancets lancets Test blood sugar(s) 1 times daily. Dx: Type 2 DM - Controlled E11.9 Insulin: No - COMPOUNDED PRESCRIPTION Prodigy Glucometer test strips Test once daily. Dx: E11.9 Insulin: No - Cholecal (more content not included)... Normal [facility] CNOVon 12-28-2023 [facility] NEELAM RYAN ([id number]) 1935 F Date Time Provider Department 12/28/23 2:00 PM FRANK F[facility] During your visit today, we recorded the following information about you: Pulse Blood pressure Weight 79/minute 116/64 69.2 kg Frank Fuentes MD 12/29/2023 8:34 AM Addendum Chief Complaint Patient presents with: Follow Up: 3 month- labs and chest xray HPI Neelam Ryan is a 88 year old female who presents here today for 3 month follow up of uncontrolled DM. DIABETES MELLITUS: Ms. Ryan was last seen 3 months ago. Glipizide dosage increased to 10 mg BID after last A1c was high. Since our last visit she denies excessive thirst or increased frequency of urination, numbness, tingling or pain in extremities, new or unusual visual symptoms, and low sugar/hypoglycemic reactions. Follows a diabetic diet most of the time. She is compliant with medication(s) and is tolerating med(s) without any side effects. She reports checking her glucose on a once a day schedule with sugars in the fasting <160 range. Patient's last HgA1C was Hemoglobin A1C (%) Date Value 09/22/2023 8.8 06/24/2023 8.9 12/12/2020 7.8 06/11/2020 8.1 ) Last Ophthalmology exam was within the past 12 months Last Podiatry exam was within the past 12 months Past medical history, appointments, medications, allergies reviewed. Previous Medical History PAST MEDICAL HISTORY Diagnosis Date Basal cell carcinoma Dr. Lambert Cholecystitis, unspecified Chronic kidney disease (CKD), stage IV (severe) (HCC) Dr. Montgomery Coronary atherosclerosis of unspecified type of vessel, tulalip or graft Dr. Issac Pulliam Hammertoes of both feet Multinodular goiter 05/21/2016 Osteoarthritis Other and unspecified anemias Pure hypercholesterolemia Sciatica Swelling of lower extremity Type II or unspecified type diabetes mellitus without mention of complication, not stated as uncontrolled Podiatry-Dr. Mcgee Unspecified essential hypertension Unspecified hypothyroidism Previous Surgical History PAST SURGICAL HISTORY Procedure Laterality Date COLONOSCOPY FLX DX W/COLLJ SPEC WHEN PFRMD 01/30/2005 Colonoscopy COLONOSCOPY FLX DX W/COLLJ SPEC WHEN PFRMD 08/05/2015 Colonoscopy ESOPHAGOGASTRODUODENOSC OPY TRANSORAL DIAGNOSTIC 01/30/2005 EGD HEART CATHETERIZATION 09/2018 angiopasty of circumflex, 75% stenosis. LAD 80%. LAPAROSCOPY SURG CHOLECYSTECTOMY 12/02/2005 Cholecystectomy, lap PAST SURGICAL HISTORY OF hernia PAST SURGICAL HISTORY OF carpal tunnel both hands PAST SURGICAL HISTORY OF fingers different times PAST SURGICAL HISTORY OF trigger finger PAST SURGICAL HISTORY OF 06/21/2006 heart cath with stent placement [facility] PAST SURGICAL HISTORY OF 04/24/2008 vaginal hysterectomy, bladder suspension, rectocele PAST SURGICAL HISTORY OF 11/20/11 cardiac cath; percutaneous transluminal coronary angioplasty with stent @ [facility] PAST SURGICAL HISTORY OF left wrist surgery TOTAL THYROID LOBECTOMY UNI W/WO ISTHMUSECTOMY Right 05/21/2016 TRANSCATH STENT INIT VESSEL,PERCUT 08/18 Transcath stent init vessel percut LAD Tara Jaimes Family History FAMILY HISTORY Problem Relation Age of Onset Diabetes Mother CAD, ANGIOPLASTY Diabetes Father DC other (DC) Brother other (OHS) Sister other (DC) Brother Heart Sister diabetic Heart Sister Heart Sister diabetic Heart Sister diabetic Patient Allergies ALLERGIES Allergen Reactions Accupril [Quinapril* Cough Sulfa (Sulfonamide * Hives Atorvastatin Myalgia Benzonatate Hives Gabapentin Other: See Comments fatigue Simvastatin Other: See Comments Current Medications Current Outpatient Medications on File Prior to Visit Medication Sig citalopram (CELEXA) 20 mg tablet Take 1 tablet by mouth once daily. aspirin 81 mg cap Take 81 mg by mouth once daily. potassium chloride (K-TAB) 10 mEq tablet Take 1 tablet by mouth daily with breakfast. folic acid 1 mg tablet Take 2 tablets by mouth once daily. glipiZIDE (GLUCOTROL) 10 mg tablet Take 1 tablet (10 mg) by mouth two times a day before meals. furosemide (LASIX) 40 mg tablet Take 1 tablet by mouth once daily. pantoprazole DR (PROTONIX) 40 mg tablet Take 1 tablet by mouth daily before breakfast. Take on empty stomach, 1/2 hr before meal. SITagliptin phosphate (JANUVIA) 50 mg tablet Take 1 tablet by mouth once daily. levothyroxine (LEVOXYL) 75 mcg tablet Take 1 tablet by mouth once daily. pravastatin (PRAVACHOL) 80 mg tablet Take 1 tablet by mouth daily at bedtime. isosorbide mononitrate ER (IMDUR) 60 mg 24 hr tablet Take 1 tablet by mouth once daily. carvedilol (COREG) 25 mg tablet Take 1 tablet by mouth two times a day. amLODIPine (NORVASC) 2.5 mg tablet Take 1 tablet by mouth once daily. mecobalamin, clarisse (more content not included)... Normal [facility] Comprehensive metabolic 2000 panelon 12-28-2023 Albumin [Mass/Vol] 4.1 g/dL Normal 3.9-4.9 [facility] Comment on above: Order Comment: Speci men Type: BLOOD SPECIMENOrdering Facility: [facility] Address: [address] [place] [address] Performed By: #### 2 4323-8 ####[facility] LABCLIA [id number] [place] [address] [place] ALP [Catalytic activity/Vol] 52 U/L Normal 34-123 [facility] Comment on above: Order Comment: Speci men Type: BLOOD SPECIMENOrdering Facility: [facility] Address: [address] [place] [address] Performed By: #### 2 4323-8 ####[facility] LABCLIA [id number] [place] [address] [place] ALT [Catalytic activity/Vol] 13 U/L Normal 7-38 [facility] Comment on above: Order Comment: Speci men Type: BLOOD SPECIMENOrdering Facility: [facility] Address: [address] [place] [address] Performed By: #### 2 4323-8 ####[facility] LABCLIA [id number] [place] [address] [place] Anion gap [Moles/Vol] 14 mmol/L Normal 8-15 [facility] Comment on above: Order Comment: Speci men Type: BLOOD SPECIMENOrdering Facility: [facility] Address: [address] [place] [address] Performed By: #### 2 4323-8 ####[facility] LABCLIA [id number] [place] [address] [place] AST [Catalytic activity/Vol] 18 U/L Normal 13-35 [facility] Comment on above: Order Comment: Speci men Type: BLOOD SPECIMENOrdering Facility: [facility] Address: [address] [place] [address] Performed By: #### 2 4323-8 ####[facility] LABCLIA [id number] [place] [address] [place] Bilirubin [Mass/Vol] 0.4 mg/dL Normal 0.2-1.3 [facility] Comment on above: Order Comment: Speci men Type: BLOOD SPECIMENOrdering Facility: [facility] Address: [address] [place] [id number] Performed By: #### 2 4323-8 ####[facility] LABCLIA [id number] [place] [address] [place] Calcium [Mass/Vol] 9.6 mg/dL Normal 8.5-10.2 [facility] Comment on above: Order Comment: Speci men Type: BLOOD SPECIMENOrdering Facility: [facility] Address: [address] [place], [place] [address] Performed By: #### 2 4323-8 ####[facility] LABCLIA [id number] [place] [address] [place] Chloride [Moles/Vol] 99 mmol/L Normal 98-107 [facility] Comment on above: Order Comment: Speci men Type: BLOOD SPECIMENOrdering Facility: [facility] Address: [address] [place] [address] Performed By: #### 2 4323-8 ####[facility] LABCLIA [id number] [place] [address] [place] CO2 [Moles/Vol] 21 mmol/L Low 22-30 [facility] Comment on above: Order Comment: Speci men Type: BLOOD SPECIMENOrdering Facility: [facility] Address: [address] [place], [place] [address] Performed By: #### 2 4323-8 ####[facility] LABCLIA [id number] [place] [id number] [place] Creatinine [Mass/Vol] 1.58 mg/dL High 0.58-0.96 [facility] Comment on above: Order Comment: Speci men Type: BLOOD SPECIMENOrdering Facility: [facility] Address: [address] [place], [place] [address] Performed By: #### 2 4323-8 ####[facility] LABCLIA [id number] [place] [id number] [place] Creatinine and Glomerular filtration rate.predicted panel (S/P/Bld) 32 mL/min/1.73m??? Low >=60 [facility] Comment on above: Order Comment: Yeimi paulson Type: BLOOD SPECIMENOrdering Facility: [facility] Address: [address] [place] [address] Result Comment: Silvia mated Glomerular Filtration Rate (eGFR) is calculated using the 2020 CKD-EPI creatinine equation. This equation utilizes serum creatinine, sex, and age as parameters. The creatinine assay has traceable calibration to isotope dilution-mass spectrometry. Refer to KDIGO guidelines for clinical interpretation. In patients with unstable renal function, e.g. those with acute kidney injury, the eGFR may not accurately reflect actual GFR. Performed By: #### 2 4323-8 ####[facility] LABCLIA [id number] [place] [address] [place] Glucose [Mass/Vol] 220 mg/dL High 74-99 [facility] Comment on above: Order Comment: Yeimi paulson Type: BLOOD SPECIMENOrdering Facility: [facility] Address: [address] [place] [address] Result Comment: The [place] Diabetes Association (ADA) provides guidance for cutoff values for fasting glucose and random glucose. The ADA defines fasting as no caloric intake for at least 8 hours. Fasting plasma glucose results between 100 to 125 mg/dL indicate increased risk for diabetes (prediabetes). Fasting plasma glucose results greater than or equal to 126 mg/dL meet the criteria for diagnosis of diabetes. In the absence of unequivocal hyperglycemia, results should be confirmed by repeat testing. In a patient with classic symptoms of hyperglycemia or hyperglycemic crisis, random plasma glucose results greater than or equal to 200 mg/dL meet the criteria for diagnosis of diabetes. Reference: Standards of Medical Care in Diabetes 2016, [place] Diabetes Association. Diabetes Care. 2016.39(Suppl 1). Performed By: #### 2 4323-8 ####[facility] LABIA [id number] [place] [address] [place] Potassium [Moles/Vol] 4.5 mmol/L Normal 3.7-5.1 [facility] Comment on above: Order Comment: Speci men Type: BLOOD SPECIMENOrdering Facility: [facility] Address: [address] [place] [address] Performed By: #### 2 4323-8 ####[facility] LABCLIA [id number] [place] [id number] [place] Protein [Mass/Vol] 7.2 g/dL Normal 6.3-8.0 [facility] Comment on above: Order Comment: Speci men Type: BLOOD SPECIMENOrdering Facility: [facility] Address: [address] [place] [address] Performed By: #### 2 4323-8 ####[facility] LABCLIA [id number] [place] [address] [place] Sodium [Moles/Vol] 134 mmol/L Low 136-144 [facility] Comment on above: Order Comment: Speci men Type: BLOOD SPECIMENOrdering Facility: [facility] Address: [address] [place] [address] Performed By: #### 2 4323-8 ####[facility] LABCLIA [id number] [place] [address] [place] Urea nitrogen [Mass/Vol] 60 mg/dL High 7-21 [facility] Comment on above: Order Comment: Speci men Type: BLOOD SPECIMENOrdering Facility: [facility] Address: [address] [place] [address] Performed By: #### 2 4323-8 ####[facility] LABCLIA [id number] [place] [address] [place] HbA1c (Bld)on 12-28-2023 Average glucose Estimated from glycated hemoglobin (Bld) [Mass/Vol] 192 mg/dL Normal [facility] Comment on above: Order Comment: Speci men Type: BLOOD SPECIMENOrdering Facility: [facility] Address: [address] [place] [address] Result Comment: eAG: (Estimated average glucose) is a calculated value from HgbA1c and is security systems sales representative of the average blood glucose level in the last 2-3 month period. Performed By: #### 5 5454-3 ####[facility] [id number] [place] [address] [place] HbA1c (Bld) [Mass fraction] 8.3 % High 4.3-5.6 [facility] Comment on above: Order Comment: Speci men Type: BLOOD SPECIMENOrdering Facility: [facility] Address: [address] [place] [address] Result Comment: [place] Diabetes Association guidelines indicate that patients with HgbA1c in the range 5.7-6.4% are at increased risk for development of diabetes, and intervention by lifestyle modification may be beneficial. HgbA1c greater or equal to 6.5% is considered diagnostic of diabetes. Performed By: #### 5 5454-3 ####[facility] [id number] [address] [place] CNOVon 12-03-2023 CNOV Office Visit (PODIWS ) NEELAM RYAN ([id number]) 1935 F Date Time Provider Department 12/03/23 1:40 PM KAROLINA MCGEE PODIWS During your visit today, we recorded the following information about you: Marisol Hu, RN 12/03/2023 2:06 PM Signed Patient presents with: Left Foot - Established Patient, Follow Up, Diabetic Foot Care Right Foot - Established Patient, Follow Up, Diabetic Foot Care Patient presents for follow up diabetic foot care. KASANDRA 06/25/23 Karolina Mcgee 12/03/2023 2:06 PM Signed Last saw pcp: 09/22/23 Subjective: Patient presents to clinic c/o painful toenails. They state that the nails are especially painful with shoe gear and pressure. Patient states that nails 1-5 b/l are painful. Patient admits to being diabetic. No other pedal complaints at this time. Patient states no change in medications or medical history since last visit. Objective: Patient presents to clinic ambulating in diabetic shoes Vasc: DP and PT pulses are palpable bilateral. CFT is less than 5 seconds bilateral. Skin temperature is warm to cool proximal to distal bilateral. There is mild edema or varicosities noted. Neuro: Protective sensation is intact to the foot and toes when tested with the 5.07 SWM bilateral. Vibratory sensation is decreased at the hallux IPJ bilateral. The hallux is downgoing bilateral. Derm: Nails 1-5 b/l are painful, discolored-yellow, thick, crumbly, dystrophic and with subungal debris. Skin is of normal turgor, texture and hair growth is present bilateral. There are no hyperkeratosis, ulcerations, scars, verruca or other lesions noted. Ortho: Muscle strength is 5/5 for all pedal groups tested. Ankle joint DF is decresaed with the knee extended with no pain or crepitus noted. 1st MPJ ROM is decreased bilateral. Hammertoe is noted b/l Assessment: (B35.1) Onychomycosis (primary encounter diagnosis) (M79.674) Pain in toe of right foot (M79.675) Pain in toe of left foot (E11.9) Type 2 diabetes mellitus without complication, without long-term current use of insulin ([facility]) (M20.41) Hammer toe of right foot Plan: Patient was seen and evaluated. Nails 1-5 bilateral were debrided in length and thickness. Discussed hammertoe of b/l feet. Options include wider shoes, padding, surgicla reconstruction, amputation. Patient has elected to continue with conservative care Patient was instructed on the continued importance of diabetic foot care along with proper diet and keeping their blood sugar under control to prevent complications. Stressed the importance of avoiding barefoot walking, wearing good shoes and inspection of feet daily Patient is to RTC in 3-4 months. Karolina Mcgee DPM Allergies As of Date: 12/03/2023 Noted Allergy Reaction ACCUPRIL (QUINAPRIL HCL) 12/24/2004 3 - Cough SULFA (SULFONAMIDE ANTIBIOTICS) 12/24/2004 4 - Hives ATORVASTATIN 01/09/2016 17 - Myalgia BENZONATATE 01/09/2016 4 - Hives GABAPENTIN 01/14/2018 14 - Other: See Comments Comments: fatigue SIMVASTATIN 01/09/2016 14 - Other: See Comments Date Reviewed: 12/03/2023 Reviewed by: Marisol Hu RN - Fully Assessed Reason for Visit: Established Patient [175] Follow Up [171] Diabetic Foot Care [916] Established Patient [175] Follow Up [171] Diabetic Foot Care [916] Primary Visit Diagnosis:Onychomycosis [B35.1] Other Visit Diagnoses:Pain in toe of right foot [M79.674] Pain in toe of left foot [M79.675] Type 2 diabetes mellitus without complication, without long-term current use of insulin (HCC) [E11.9] Hammer toe of right foot [M20.41] Prescriptions as of 12/03/2023 - aspirin 81 mg cap Take 81 mg by mouth once daily. - potassium chloride (K-TAB) 10 mEq tablet Take 1 tablet by mouth daily with breakfast. - folic acid 1 mg tablet Take 2 tablets by mouth once daily. - glipiZIDE (GLUCOTROL) 10 mg tablet Take 1 tablet (10 mg) by mouth two times a day before meals. - furosemide (LASIX) 40 mg tablet Take 1 tablet by mouth once daily. - pantoprazole DR (PROTONIX) 40 mg tablet Take 1 tablet by mouth daily before breakfast. Take on empty stomach, 1/2 hr before meal. - SITagliptin phosphate (JANUVIA) 50 mg tablet Take 1 tablet by mouth once daily. - levothyroxine (LEVOXYL) 75 mcg tablet Take 1 tablet by mouth once daily. - pravastatin (PRAVACHOL) 80 mg tablet Take 1 tablet by mouth daily at bedtime. - isosorbide mononitrate ER (IMDUR) 60 mg 24 hr tablet Take 1 tablet by mouth once daily. - carvedilol (COREG) 25 mg tablet Take 1 tablet by mouth two times a day. - amLODIPine (NORVASC) 2.5 mg tablet Take 1 tablet by mouth once daily. - citalopram (CELEXA) 20 mg tablet Take 1 tablet by mouth once daily. - mecobalamin, vitamin B12, 1,000 mcg chew Take 1 tablet by mouth once daily. - acetaminophen (TYLENOL) 500 mg tablet Take 2 tablets by mouth every 8 hours (more content not included)... Normal [facility] 11-22-2023 [facility] Telephone (FAMPWS) NEELAM RYAN ([id number]) 1935 F Date Time Provider Department 11/22/23 FRANK FUENTES [facility] During your visit today, we recorded the following information about you: Abigail Sawyer 11/22/2023 10:00 AM Signed Neelam is calling Frank Fuentes MD today to request the following medication, not on current list. Please send to [facility]. Disp Refills Start End potassium chloride (K-TAB) 10 mEq tablet 90 tablet 1 05/24/2023 11/20/2023 Sig: Take 1 tablet by mouth once daily. Sent to pharmacy as: potassium chloride (K-TAB) 10 mEq tablet Class: Normal Route: ORAL Order: [id number] E-Prescribing Status: Receipt confirmed by pharmacy (05/24/2023 1:33 PM EDT) Patient has been identified by name and birthdate. Duration of symptoms: N/A Person calling: self Call patient at: on cell [phone] (home) [phone] (cell) Was an appointment scheduled: No Closing statement: Results or non-symptom based questions: Thank you for calling [facility], your call will be returned within the next business day. Frank Costa MD 11/22/2023 10:26 AM Signed Rx sent. Allergies As of Date: 11/22/2023 Noted Allergy Reaction ACCUPRIL (QUINAPRIL HCL) 12/24/2004 3 - Cough SULFA (SULFONAMIDE ANTIBIOTICS) 12/24/2004 4 - Hives ATORVASTATIN 01/09/2016 17 - Myalgia BENZONATATE 01/09/2016 4 - Hives GABAPENTIN 01/14/2018 14 - Other: See Comments Comments: fatigue SIMVASTATIN 01/09/2016 14 - Other: See Comments Date Reviewed: 09/22/2023 Reviewed by: Catie Jain LPN - Fully Assessed Reason for Visit: Refill Request [94] Order(s):potassium chloride (K-TAB) 10 mEq tabletTake 1 tablet by mouth daily with breakfast.Disp: 90 tabletRfl: 1 Prescriptions as of 11/22/2023 - potassium chloride (K-TAB) 10 mEq tablet Take 1 tablet by mouth daily with breakfast. - folic acid 1 mg tablet Take 2 tablets by mouth once daily. - glipiZIDE (GLUCOTROL) 10 mg tablet Take 1 tablet (10 mg) by mouth two times a day before meals. - furosemide (LASIX) 40 mg tablet Take 1 tablet by mouth once daily. - pantoprazole DR (PROTONIX) 40 mg tablet Take 1 tablet by mouth daily before breakfast. Take on empty stomach, 1/2 hr before meal. - SITagliptin phosphate (JANUVIA) 50 mg tablet Take 1 tablet by mouth once daily. - levothyroxine (LEVOXYL) 75 mcg tablet Take 1 tablet by mouth once daily. - pravastatin (PRAVACHOL) 80 mg tablet Take 1 tablet by mouth daily at bedtime. - isosorbide mononitrate ER (IMDUR) 60 mg 24 hr tablet Take 1 tablet by mouth once daily. - carvedilol (COREG) 25 mg tablet Take 1 tablet by mouth two times a day. - amLODIPine (NORVASC) 2.5 mg tablet Take 1 tablet by mouth once daily. - citalopram (CELEXA) 20 mg tablet Take 1 tablet by mouth once daily. - mecobalamin, vitamin B12, 1,000 mcg chew Take 1 tablet by mouth once daily. - acetaminophen (TYLENOL) 500 mg tablet Take 2 tablets by mouth every 8 hours as needed for pain. - blood sugar diagnostic (BLOOD GLUCOSE TEST) test strip Prodigy Glucometer Test blood sugar(s) 1 time daily. Dx: Type 2 DM - Controlled E11.9 Insulin: No - nitroglycerin sublingual (NITROQUICK) 0.4 mg SL tablet Dissolve 1 tablet under the tongue as needed. DISSOLVE ONE(1) TABLET UNDER THE TOUNGUE NEEDED FOR CHEST PAIN,EVERY 5 MIN X3 - Lancets lancets Test blood sugar(s) 1 times daily. Dx: Type 2 DM - Controlled E11.9 Insulin: No - COMPOUNDED PRESCRIPTION Prodigy Glucometer test strips Test once daily. Dx: E11.9 Insulin: No - Cholecalciferol, Vitamin D3, 1,000 unit cap Take 1 capsule by mouth once daily. - COMPOUNDED PRESCRIPTION Lancets Test once daily. Dx: E11.9 Insulin: No - Cranberry 500 mg cap Take 1 tablet by mouth once daily. - XALATAN 0.005 % EYE DROPS one drop each eye at [facility] Problem List As Of Date 11/22/2023 Noted Resolved Mixed hyperlipidemia [E78.2] 01/07/2005 Type 2 diabetes mellitus with stage 3b chronic *01/07/2005 Hypothyroidism [E03.9] 01/07/2005 Anemia, unspecified [D64.9] CONSTIPATION NOS [K59.00] 01/23/2005 ESOPHAGEAL REFLUX [K21.9] 01/23/2005 Acute gastritis without mention of hemorrhage [*01/30/2005 12/30/2016 SPINAL STENOSIS-LUMBAR [M48.061] 02/24/2005 SCIATICA [M54.30] 02/24/2005 Calculus of gallbladder with acute cholecystiti*02/24/2005 12/30/2016 Unspecified cardiovascular disease [I25.10] 10/05/2005 12/30/2016 Essential hypertension [I10] Coronary atherosclerosis [I25.10] 12/30/2016 Unspecified deformity of ankle and foot, acquir*02/13/2009 12/30/2016 DM Neuro Manif Type II, Uncontrolled [E11.49] 02/13/2009 08/22/2009 Hallux Valgus (Acquired) [M20.10] 02/13/2009 Other Hammer Toe (Acquired) [M20.40] 02/13/2009 Postsurgical Percutaneous Transluminal Coronary*07/25/2009 Other acquired deformity of toe [M20.5X9] 05/28/2010 CRST (more content not included)... Normal [facility] Carotid Duplex Ultrasoundon 10-06-2023 Carotid Duplex Ultrasound [facility] [place] [address] Carotid Duplex Ultrasound 10/06/23 1258 MR#: [id number] Acct: [id number] Name: NEELAM RYAN Rep #: [id number] : 1935 88 From: Jose Manuel Mendiola MD Attending Dr: Dorothy Cody PRESS BOX CUSTODIAN-C Status: REG C LI Ordering Dr: Dorothy Cody PRESS BOX CUSTODIAN PRESS BOX CUSTODIAN-C Date: 10/06/23 Location: [facility] Sex: F C Admitted: Reason For Study: Dizziness Rt. Velocities/BP Lt. Velocities/BP Prox CCA 64.8/10.0 cm/sec. Prox CCA 70.7/14.2 cm/sec. Mid CCA 53.5/9.1 cm/sec. Mid CCA 68.3/16.7 cm/sec. Dist CCA 53.5/11.9 cm/sec. Dist CCA 86.7/17.9 cm/sec. Prox ICA 141.8/25.5 cm/sec. Prox ICA 103.0/21.7 cm/sec. Mid ICA 122.1/18.9 cm/sec. Mid ICA 92.9/27.6 cm/sec. Dist ICA 76.1/18.5 cm/sec. Dist ICA 52.7/12.2 cm/sec. Rt. ICA/CCA = 2.7. Lt. ICA/CCA = 1.5. Prox ECA 108.9/0.0 cm/sec. Prox ECA 88.3/0.0 cm/sec. Rt. Vert. 74.3/13.8 cm/sec. Lt. Vert. 37.6/10.6 cm/sec. Right Extracranial There is heterogeneous, irregular atherosclerotic plaque noted in the right common carotid artery. There is heterogeneous, irregular atherosclerotic plaque noted in the right internal carotid artery. There is heterogeneous, irregular atherosclerotic plaque noted in the right external carotid artery. Antegrade flow is noted in the right vertebral artery. Left Extracranial There is heterogeneous, irregular atherosclerotic plaque noted in the left common carotid artery. There is heterogeneous, irregular atherosclerotic plaque noted in the left internal carotid artery. There is heterogeneous, irregular atherosclerotic plaque noted in the left external carotid artery. Antegrade flow is noted in the left vertebral artery. Procedure Carotid Duplex 68210. This is a Carotid Duplex examination using B-mode, color flow and specral Doppler. The exam was diagnostic. Exam performed in department. VL/Carotid Duplex Ultrasound Interpretation Summary Moderate (50-69%) stenosis right extracranial internal carotid. Mild (<50%) stenosis left extracranial internal carotid. Patent and antegrade vertebrals bilaterally. Ordering Physician: Dorothy Cody Referring Physician: Frank Fuentes Performed By: Jameel Kidd, T 10/06/23 1612 Date Jose Manuel Mendiola MD CC: PRESS BOX CUSTODIAN-C Dorothy Cody; Dr. Koko Fuentes MD Date Dictated: 10/06/23 1258 Date Transcribed: 10/06/23 1612 Price Analyst: Signed [facility] XR Chest PA and Lateralon IMPRESSION: As above. Price Analyst: PSCB Transcribe Date/Time: Sep 22 2023 3:20P Dictated by : BELKIS CRUZ MD This examination was interpreted and the report reviewed and electronically signed by: BELKIS CRUZ MD on Sep 22 2023 3:21PM [facility] DIVISION OF RADIOLOGY * * *Final Report* * * DATE OF EXAM: Sep 22 2023 3:11PM WOX 5291 - XR CHEST 2V FRONTAL/LAT / PROCEDURE REASON: Decreased breath sounds of both lungs * * * * Physician Interpretation * * * * EXAMINATION: CHEST RADIOGRAPH (2 VIEW FRONTAL & LATERAL) CLINICAL HISTORY: Decreased breath sounds of both lungs MQ: XC2_6 EXAM DATE/TIME: 09/22/2023 3:11 PM COMPARISON: Chest x-ray of 02/15/2023 RESULT: Lines, tubes, and devices: None. Lungs and pleura: No consolidation. Diffuse hazy central interstitial prominence, possibly chronic. No lung mass. No pleural effusion. No pneumothorax. Cardiomediastinal silhouette: Stable cardiomediastinal silhouette. Bones and soft tissues: Degenerative changes of the spine. DIVISION OF RADIOLOGY Provider, Susanne Caro - 09/22/2023 * * *Final Report* * * DATE OF EXAM: Sep 22 2023 3:11PM WOX 5291 - XR CHEST 2V FRONTAL/LAT / PROCEDURE REASON: Decreased breath sounds of both lungs * * * * Physician Interpretation * * * * EXAMINATION: CHEST RADIOGRAPH (2 VIEW FRONTAL & LATERAL) CLINICAL HISTORY: Decreased breath sounds of both lungs MQ: XC2_6 EXAM DATE/TIME: 09/22/2023 3:11 PM COMPARISON: Chest x-ray of 02/15/2023 RESULT: Lines, tubes, and devices: None. Lungs and pleura: No consolidation. Diffuse hazy central interstitial prominence, possibly chronic. No lung mass. No pleural effusion. No pneumothorax. Cardiomediastinal silhouette: Stable cardiomediastinal silhouette. Bones and soft tissues: Degenerative changes of the spine. IMPRESSION IMPRESSION: As above. Price Analyst: PSCB Transcribe Date/Time: Sep 22 2023 3:20P Dictated by : BELKIS CRUZ MD This examination was interpreted and the report reviewed and electronically signed by: BELKIS CRUZ MD on Sep 22 2023 3:21PM EST [facility] Radiology Study observation (narrative) Walt bell [facility] XR Chest PA and LateralOrder ed By: Ccf Provider on 09-22-2023 [facility] BNP,B-Type NATRIURETIC PEPTI Mauro 09-15-2023 BNP Normal 0-100 [facility] Comment on above: Result Comment: TEST RESULTS LIMITS BNP 365(H) 0-99 pg/mL Comments: <100 pg/mL - Heart failure unlikely 100-299 pg/mL - Intermediate probability of acute heart failure exacerbation. Correlate with clinical context and patient history. >=300 pg/mL - Heart failure likely. Correlate with clinical context and patient history. BNP testing is performed using different testing methodology at [facility] than at other [facility]. Direct result comparisons should only be made within the same method. TESTING PERFORMED AT [facility]. ORIGINAL REPORT ON FILE IN LAB CONTAINS ADDITIONAL TEST SITE INFORMATION. Performed By: #### L 503.6620, L500.2500 #### [facility] [address] [place], [address] Basic Metabolic Profile (BMP )on 09-14-2023 BUN/CRE 31.1 RATIO High 10-20 [facility] Comment on above: Performed By: #### L 503.6620, L500.2500 #### [facility] [address] [place], [address] CA,Total 9.4 mg/dL Normal 8.5-10.1 [facility] Comment on above: Performed By: #### L 503.6620, L500.2500 #### [facility] [address] [place], [address] Chloride [Moles/Vol] 102 mmol/L Normal 98-107 [facility] Comment on above: Performed By: #### L 503.6620, L500.2500 #### [facility] [address] [place], [address] CO2 [Moles/Vol] 25.0 mmol/L Normal 21.0-32.0 [facility] Comment on above: Performed By: #### L 503.6620, L500.2500 #### [facility] [address] [place], [address] Creatinine [Mass/Vol] 1.48 mg/dL High 0.55-1.02 [facility] Comment on above: Result Comment: The validity of the calculated GFR GFRAA in patients over 70 years has not been determined. Clinical correlation is essential. Performed By: #### L 503.6620, L500.2500 #### [facility] [address] [place], [address] EST GFR - AA 43 mL/min Low >60 [facility] Comment on above: Result Comment: Afri can Ivorian GFR Calc Performed By: #### L 503.6620, L500.2500 #### [facility] [address] [place], [address] GAP 8 Normal 5-15 [facility] Comment on above: Performed By: #### L 503.6620, L500.2500 #### [facility] [address] [place], [address] GFR/1.73 sq M.predicted among non-blacks MDRD (S/P/Bld) [Vol rate/Area] 35 mL/min/{1.73_m2} Low >60 [facility] Comment on above: Result Comment: Non- GFR Calc Performed By: #### L 503.6620, L500.2500 #### [facility] [address] [place], [address] Glucose [Mass/Vol] 244 mg/dL High 74-106 [facility] Comment on above: Result Comment: Gluc ose result greater than or equal to 200 mg/dL suggests DIABETES MELLITUS per A.D.A. criteria. Performed By: #### L 503.6620, L500.2500 #### [facility] [address] [place], [address] Potassium [Moles/Vol] 4.6 mmol/L Normal 3.5-5.1 [facility] Comment on above: Performed By: #### L 503.6620, L500.2500 #### [facility] [address] [place], [address] Sodium [Moles/Vol] 135 mmol/L Low 136-145 [facility] Comment on above: Performed By: #### L 503.6620, L500.2500 #### [facility] [address] [place], [address] Urea nitrogen [Mass/Vol] 46 mg/dL High 7-18 [facility] Comment on above: Performed By: #### L 503.6620, L500.2500 #### [facility] [address] [place], [address] Cardiology Visit Reporton Cardiology Visit Report [facility] [address] [place], [place] [address] OFFICE VISIT Date of Service: 09/14/23 MR#: [id number] Acct: [id number] Name: NEELAM RYAN Toño Rep #: [id number] : 1935 Provider: GUSTAVO yousif Age/Sex: 88/F Location: [facility] Status: Signed HPI HPI History of Present Illness Details: This is an 88 year old female who presents here today for a cardiovascular follow up visit. She has a history of coronary artery disease with triple-vessel disease. In 2011 she had a DIVING JUDGE followed by stent deployment. Postprocedure she developed hypotension and had a moderate global pericardial effusion and underwent an emergent pericardial window placement. In September 2018 she underwent a cardiac catheterization which demonstrated preserved ejection fraction of 60%, proximal LAD with luminal irregularities in the distal LAD with an 80% stenotic lesion. The circumflex artery had a mid 75% stenotic lesion and this obtuse marginal vessel had a long 95% stenosis of the first obtuse marginal branch. The right coronary artery which was previously stented involving almost the entire vessel had approximately 40 to 50% in-stent stenosis. She underwent angioplasty of the mid circumflex artery alone and medical therapy was recommended for the rest. 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 Patient presented to the emergency room on 01/28/2023 with complaints of shortness of breath. Her BT PRESS BOX CUSTODIAN was elevated at 454, and her chest x-ray demonstrated mild to moderate pulmonary edema. Patient was admitted to the hospital for further assessment. She underwent an echocardiogram on 01/29/2023 which demonstrated ejection fraction 55 to 60%. She was given IV Lasix, which improved her shortness of breath. She was discharged home and instructed to follow-up with cardiology. She then presented to the emergency room on 02/05/2023 after falling at home. Her brain CT demonstrated a small subdural hematoma, she was transferred to [facility] for further evaluation. She was seen by a neurosurgeon which stopped her Plavix and aspirin. She had a follow-up visit with Dr. Phillips yesterday, and she states her subdural hematoma has improved. From a cardiac standpoint, the patient is doing well. She denies any palpitations, chest pain, pressure or heaviness. She does have SOB with exertion. She denies Orthopnea, and PND. She does not have bleeding issues; no blood in urine, stool or nosebleeds. She denies decrease in energy level, myalgias, or claudication. She does not have edema, or sudden weight gain. She does have occasional lightheadedness with positional changes. She denies dizziness, syncopal or near syncopal episodes, and headaches. Intake Vital Signs 02/19/23 13:13 09/14/23 11:11 Height 4 ft 11 in 4 ft 11 in Weight: 152 lb BMI 30.7 BP 130/74 H Blood Pressure Location Lt brachial Position Sitting Respiration 18 Pulse 82 Pulse Source Monitor Pulse Oximetry (%) 95 Intake Visit Reasons: 1 Y FU Generator Technician Required: No Is patient in pain?: No Allergies quinapril HCl (From Accupril) Allergy (Verified 09/14/23 11:27) Other Sulfa (Sulfonamide Antibiotics) Allergy (Verified 09/14/23 11:27) Rash Medications ???Medication ???Instructions ???Recorded ???Confirmed ???Type carvedilol 25 mg tablet 25 mg PO BID 01/02/15 09/14/23 History cholecalciferol (vitamin D3) 25 1,000 unit PO DAILY 01/02/15 09/14/23 History mcg (1,000 unit) tablet cranberry 500 mg capsule 500 mg PO DAILY 01/02/15 09/14/23 History levothyroxine 75 mcg tablet 75 mcg PO QHS 01/02/15 09/14/23 History pravastatin 80 mg tablet 80 mg PO DAILY 01/02/15 09/14/23 History sitagliptin phosphate 50 mg tablet 50 mg PO DAILY 08/22/18 09/14/23 History (Januvia) nitroglycerin 0.4 mg sublingual 0.4 mg sublingual Q5-15M PRN chest 12/07/18 09/14/23 Rx tablet pain #25 tabs amlodipine 5 mg tablet (Norvasc) 5 mg PO DAILY #90 tabs 03/30/19 09/14/23 Rx citalopram 20 mg tablet 20 mg PO DAILY 08/22/19 09/14/23 History folic acid 1 mg tablet 1 mg PO BID 08/22/19 09/14/23 History latanoprost 0.005 % eye drops 1 drp ophthalmic (eye) .daily qhs 04/04/21 09/14/23 History (Xalatan) eye pantoprazole 40 mg tablet,delayed 40 mg PO DAILY 04/04/21 09/14/23 History release cyanocobalamin (vitamin B-12) 1,000 mcg PO DAILY 05/21/22 09/14/23 History 1,000 mcg capsule isosorbide mononitrate 30 mg 60 mg PO DAILY 09/21/22 09/14/23 History tablet,extended release 24 hr vitamins A,C,C-ddjl-pwrwgr 4,296 1 cap PO BID 09/21/22 09/14/23 History mcg-226 mg-90 mg capsule (PreserVision AREDS) furosemide 40 mg tablet 40 mg PO DAILY 30 days #30 tabs 01/31/23 09/14/23 Rx potassium chloride 10 mEq 10 meq PO DAILY 30 days #30 caps 01/31/23more content not included)... Normal [facility] ALBUMIN/CREATININE RATIO, UR INEon 06-24-2023 Albumin DL <= 20 mg/L (U) [Mass/Vol] 30.6 mg/L [facility] Albumin/Creatinine (U) [Mass ratio] 74 mg/g High <30 mg/g [facility] Creatinine (U) [Mass/Vol] 41.5 mg/dL 20.0 - 300.0 mg/dL [facility] CBC W Auto Differential pane l (Bld)on 06-24-2023 Basophils (Bld) [#/Vol] 0.03 10*3/uL <0.11 k/uL [facility] Basophils/100 WBC (Bld) 0.4 % C [facility] Differential cell count method Nom (Bld) Auto [facility] Eosinophils (Bld) [#/Vol] 0.24 10*3/uL <0.46 k/uL [facility] Eosinophils/100 WBC (Bld) 3.0 % [facility] Erythrocyte distribution width (RBC) [Ratio] 15.6 % High 11.5 - 15.0 % [facility] Hematocrit (Bld) [Volume fraction] 32.4 % Low 36.0 - 46.0 % [facility] Hemoglobin (Bld) [Mass/Vol] 10.9 g/dL Low 11.5 - 15.5 g/dL [facility] Immature granulocytes (Bld) [#/Vol] 0.03 10*3/uL <0.10 k/uL [facility] Immature granulocytes/100 WBC (Bld) 0.4 % [facility] Lymphocytes (Bld) [#/Vol] 2.24 10*3/uL 1.00 - 4.00 k/uL [facility] Lymphocytes/100 WBC (Bld) 28.4 % [facility] MCH (RBC) [Entitic mass] 37.3 pg High 26.0 - 34.0 pg [facility] MCHC (RBC) [Mass/Vol] 33.6 g/dL 30.5 - 36.0 g/dL [facility] MCV (RBC) [Entitic vol] 111.0 fL High 80.0 - 100.0 fL [facility] Monocytes (Bld) [#/Vol] 0.78 10*3/uL <0.87 k/uL [facility] Monocytes/100 WBC (Bld) 9.9 % C [facility] Neutrophils (Bld) [#/Vol] 4.58 10*3/uL 1.45 - 7.50 k/uL [facility] Neutrophils/100 WBC (Bld) 57.9 % [facility] Nucleated RBC (Bld) [#/Vol] 0.04 10*3/uL High <0.01 k/uL [facility] Nucleated RBC/100 WBC (Bld) [Ratio] 0.5 /100 WBC [facility] Platelet mean volume (Bld) [Entitic vol] 10.3 fL 9.0 - 12.7 fL [facility] Platelets (Bld) [#/Vol] 331 10*3/uL 150 - 400 k/uL [facility] RBC (Bld) [#/Vol] 2.92 10*6/uL Low 3.90 - 5.2 0 m/uL [facility] WBC (Bld) [#/Vol] 7.90 10*3/uL 3.70 - 11. 00 k/uL [facility] Comprehensive metabolic 2000 panelon 06-24-2023 Albumin [Mass/Vol] 4.1 g/dL 3.9 - 4.9 g/dL [facility] ALP [Catalytic activity/Vol] 49 U/L 34 - 123 U/L [facility] ALT [Catalytic activity/Vol] 11 U/L 7 - 38 U/L [facility] Anion gap [Moles/Vol] 12 mmol/L 9 - 18 mmol/L [facility] AST [Catalytic activity/Vol] 15 U/L 13 - 35 U/L [facility] Bilirubin [Mass/Vol] 0.7 mg/dL 0.2 - 1 .3 mg/dL [facility] Calcium [Mass/Vol] 9.8 mg/dL 8.5 - 10. 2 mg/dL [facility] Chloride [Moles/Vol] 102 mmol/L 97 - 10 5 mmol/L [facility] CO2 [Moles/Vol] 25 mmol/L 22 - 30 mmol/L [facility] Creatinine [Mass/Vol] 1.27 mg/dL High 0.58 - 0.96 mg/dL [facility] Estimated Glomerular Filtration Rate 41 mL/min/1.73m Low >=60 mL/min/1.73m [facility] Glucose [Mass/Vol] 147 mg/dL High 74 - 99 mg/dL [facility] Potassium [Moles/Vol] 4.5 mmol/L 3.7 - 5.1 mmol/L [facility] Protein [Mass/Vol] 7.0 g/dL 6.3 - 8.0 g/dL [facility] Sodium [Moles/Vol] 139 mmol/L 136 - 144 mmol/L [facility] Urea nitrogen [Mass/Vol] 43 mg/dL High 7 - 21 mg/dL [facility] HbA1c (Bld)on 06-24-2023 Average glucose Estimated from glycated hemoglobin (Bld) [Mass/Vol] 209 mg/dL [facility] HbA1c (Bld) [Mass fraction] 8.9 % High 4.3 - 5.6 % [facility] Lipid 1996 panelon 4 Cholesterol [Mass/Vol] 117 mg/dL <200 mg/dL [facility] Cholesterol in HDL [Mass/Vol] 56 mg/dL >39 mg/dL [facility] Cholesterol in LDL [Mass/Vol] 47 mg/dL <100 mg/dL [facility] Cholesterol in LDL/Cholesterol in HDL [Mass ratio] 0.84 {ratio} <2.54 [facility] Cholesterol in VLDL [Mass/Vol] 14 mg/dL <30 mg/dL [facility] Cholesterol non HDL [Mass/Vol] 61 mg/dL <130 mg/dL [facility] Cholesterol.total/Barbara sterol in HDL [Mass ratio] 2.09 {ratio} <5.10 [facility] Fasting Time 12 hrs [facility] Triglyceride [Mass/Vol] 70 mg/dL <150 mg/dL C [facility] 02-19-2023 [facility] Office Visit (NEAGCL M) CONNORNEELAM ([id number]) 1935 F Date Time Provider Department 02/19/23 11:00 AM NIMESH PHILLIPS NEAGCLM During your visit today, we recorded the following information about you: Pulse Respiration Blood pressure Weight 82/minute 16/minute 122/74 68.9 kg Height 1.499 m Nimesh Phillips MD 02/19/2023 10:33 AM Signed NEUROSURGERY FOLLOW UP OFFICE NOTE Dr. Nimesh Phillips MD, FACS Date of visit: February 19, 2023 Patient Name: Ms.Esther Lundberg Connor Date of : 1935 Current Age: [age] year old Sex: female MRN/E# [id number] Last Office Visit: Hospital follow-up CHIEF COMPLAINT: Patient presents with: Established Patient SUBJECTIVE: The patient presents as a hospital follow-up with imaging (CT B) for evaluation. This is a 87-year-old female with a PMHx of basal cell carcinoma, CAD (3 stents), thyroid goiter, ALEJA, hypercholesterolemia, DM, HTN, on Plavix and aspirin who was seen for consult on 02/06/2023. She was transferred as a trauma from an OSH after a fall at home causing her to land on her left side. Workup at outside hospital demonstrated a left falx subdural hematoma. She was given DDAVP and her blood thinning medications were placed on hold. Once repeat imaging stabilized no surgical intervention was indicated. Recommendation was to continue to hold the Plavix and aspirin and follow-up in 10 days with repeat CTB prompting her visit today. Since discharge she states she is overall doing well. She denies any neurological symptoms since discharge. Denies headache, visual changes, speech deficits, seizure activity, motor or sensory deficits. She presents for image review, evaluation and plan of care. SYMPTOMS: None PREVIOUS CONSERVATIVE TREATMENTS: Tylenol prn SURGICAL RISK: Smoker: No Diabetic: Yes -A1c 7.9% on 12/22/2022 Anticoagulants / Antiplatelets: ASA/Plavix -hold Occupation: N/A PREVIOUS SURGERY: None PAIN EVALUATION No data found in the last 1 encounters. PAST MEDICAL HISTORY Diagnosis Date Basal cell carcinoma Dr. Lambert Cholecystitis, unspecified Chronic kidney disease (CKD), stage IV (severe) ([facility]) Dr. Montgomery Coronary atherosclerosis of unspecified type of vessel, tulalip or graft Dr. Davneport Depression Hammertoes of both feet Multinodular goiter 05/21/2016 Osteoarthritis Other and unspecified anemias Pure hypercholesterolemia Sciatica Swelling of lower extremity Type II or unspecified type diabetes mellitus without mention of complication, not stated as uncontrolled Podiatry-Dr. Mcgee Unspecified essential hypertension Unspecified hypothyroidism PAST SURGICAL HISTORY Procedure Laterality Date COLONOSCOPY FLX DX W/COLLJ SPEC WHEN PFRMD 01/30/2005 Colonoscopy COLONOSCOPY FLX DX W/COLLJ SPEC WHEN PFRMD 08/05/2015 Colonoscopy ESOPHAGOGASTRODUODENOSC OPY TRANSORAL DIAGNOSTIC 01/30/2005 EGD HEART CATHETERIZATION 09/2018 angiopasty of circumflex, 75% stenosis. LAD 80%. LAPAROSCOPY SURG CHOLECYSTECTOMY 12/02/2005 Cholecystectomy, lap PAST SURGICAL HISTORY OF hernia PAST SURGICAL HISTORY OF carpal tunnel both hands PAST SURGICAL HISTORY OF fingers different times PAST SURGICAL HISTORY OF trigger finger PAST SURGICAL HISTORY OF 06/21/2006 heart cath with stent placement [facility] PAST SURGICAL HISTORY OF 04/24/2008 vaginal hysterectomy, bladder suspension, rectocele PAST SURGICAL HISTORY OF 11/20/11 cardiac cath; percutaneous transluminal coronary angioplasty with stent @ [facility] PAST SURGICAL HISTORY OF left wrist surgery TOTAL THYROID LOBECTOMY UNI W/WO ISTHMUSECTOMY Right 05/21/2016 TRANSCATH STENT INIT VESSEL,PERCUT 08/18 Transcath stent init vessel percut LAD [place] [facility] FAMILY HISTORY Problem Relation Age of Onset Diabetes Mother CAD, ANGIOPLASTY Diabetes Father DC other (DC) Brother other (OHS) Sister other (DC) Brother Heart Sister diabetic Heart Sister Heart Sister diabetic Heart Sister diabetic ALLERGIES Allergen Reactions Accupril [Quinapril* Cough Sulfa (Sulfonamide * Hives Atorvastatin Myalgia Benzonatate Hives Gabapentin Other: See Comments fatigue Simvastatin Other: See Comments Current Outpatient Medications Medication Sig Dispense Refill potassium chloride (K-TAB) 10 mEq tablet Take 10 mEq by mouth once daily. isosorbide mononitrate ER (IMDUR) 60 mg 24 hr tablet Take 1 tablet by mouth once daily. 90 tablet 1 sitaGLIPtin phosphate (JANUVIA) 50 mg tablet Take 1 tablet by mouth once daily. 90 tablet 1 furosemide (LASIX) 20 mg tablet Take 2 tablets by mouth once daily. 90 tablet 1 carbamide peroxide (DEBROX) 6.5 % otic solution Use 5 Drops in both ears two times a day for 4 days. 15 mL 0 amLODIPine (NORVASC) 5 mg tablet Take 0.5 tablets by mouth once daily. mecobalamin, vitamin B12, 1,000 (more content not included)... Normal [facility] CT BRAIN WO IVCONon 02-20-20 CT BRAIN WO IVCON * * *Final Report* * * DATE OF EXAM: Feb 19 2023 9:18AM A1C 0504 - CT BRAIN WO IVCON / PROCEDURE REASON: Nontraumatic subarachnoid hemorrhage (HCC) * * * * Physician Interpretation * * * * EXAMINATION: CT BRAIN WO IVCON CLINICAL HISTORY: Left parafalcine subdural hematoma, follow-up exam TECHNIQUE: Serial axial images without IV contrast were obtained from the vertex to the foramen magnum. MQ: CTBWO_3 CT Radiation dose: Integrated Dose-Length Product (DLP) for this visit = 794.52 mGy*cm CT Dose Reduction Employed: No dose reduction techniques were required COMPARISON: 02/06/[address] RESULT: Post-operative change: None. Acute change: No evidence of an acute infarct or other acute parenchymal process. Hemorrhage: Interval decrease in the volume of the left parafalcine subdural hematoma. No CT evidence of a new volume of acute intracranial hemorrhage Mass Lesion / Mass Effect: There is no evidence of an intracranial mass or extraaxial fluid collection. No significant mass effect. Chronic change: None apparent. Parenchyma: There is no significant volume loss. The brain parenchyma is otherwise within normal limits for age. Ventricles: The ventricles are within normal limits of size and configuration for age. Paranasal sinuses and skull base: The visualized paranasal sinuses are grossly clear. The skull base and imaged soft tissues are unremarkable. IMPRESSION: Interval decrease in the volume of the left parafalcine subdural hematoma, best seen on coronal image 25 and axial image 22. No CT evidence of a new volume of acute intracranial hemorrhage Price Analyst: PSCB Transcribe Date/Time: Feb 22 2023 7:55A Dictated by : SUE ALVAREZ MD This examination was interpreted and the report reviewed and electronically signed by: SUE ALVAREZ MD on Feb 22 2023 7:57AM EST [id number] Normal [facility] CBC W Auto Differential pane l (Bld)on 02-16-2023 Anisocytosis Ql (Bld) Present [facility] Basophils (Bld) [#/Vol] 0.04 10*3/uL <0.11 k/uL [facility] Basophils/100 WBC (Bld) 0.4 % [facility] CBC W Differential panel, method unspecified (Bld) Done [facility] Dacrocytes LM Ql (Bld) Few Cl [facility] Differential cell count method Nom (Bld) Auto [facility] Eosinophils (Bld) [#/Vol] 0.43 10*3/uL <0.46 k/uL [facility] Eosinophils/100 WBC (Bld) 4.2 % [facility] Erythrocyte distribution width (RBC) [Ratio] 16.6 % High 11.5 - 15.0 % [facility] Hematocrit (Bld) [Volume fraction] 28.0 % Low 36.0 - 46.0 % [facility] Hemoglobin (Bld) [Mass/Vol] 9.3 g/dL Low 11.5 - 15.5 g/dL [facility] Immature granulocytes (Bld) [#/Vol] 0.12 10*3/uL High <0.10 k/uL [facility] Immature granulocytes/100 WBC (Bld) 1.2 % [facility] Lymphocytes (Bld) [#/Vol] 1.72 10*3/uL 1.00 - 4.00 k/uL [facility] Lymphocytes/100 WBC (Bld) 16.9 % [facility] MCH (RBC) [Entitic mass] 36.9 pg High 26.0 - 34.0 pg [facility] MCHC (RBC) [Mass/Vol] 33.2 g/dL 30.5 - 36.0 g/dL [facility] MCV (RBC) [Entitic vol] 111.1 fL High 80.0 - 100.0 fL [facility] Monocytes (Bld) [#/Vol] 0.89 10*3/uL High <0.87 k/uL [facility] Monocytes/100 WBC (Bld) 8.8 % C [facility] Neutrophils (Bld) [#/Vol] 6.96 10*3/uL 1.45 - 7.50 k/uL [facility] Neutrophils/100 WBC (Bld) 68.5 % [facility] Nucleated RBC (Bld) [#/Vol] 0.18 10*3/uL High <0.01 k/uL [facility] Nucleated RBC/100 WBC (Bld) [Ratio] 1.8 /100 WBC [facility] Ovalocytes LM Ql (Bld) Few Cl [facility] Platelet clump LM Ql (Bld) Present [facility] Platelet mean volume (Bld) [Entitic vol] 10.3 fL 9.0 - 12.7 fL [facility] Platelets (Bld) [#/Vol] 452 10*3/uL High 150 - 400 k/uL [facility] Platelets Estimate (Bld) [#/Vol] Increased [facility] Polychromasia LM Ql (Bld) Slight [facility] RBC (Bld) [#/Vol] 2.52 10*6/uL Low 3.90 - 5.2 0 m/uL [facility] RBC Fragments Few Abnormal None Seen [facility] Red Cell Morph Reviewed: see result s of individual morphologies [facility] WBC (Bld) [#/Vol] 10.16 10*3/uL 3.70 - 11 .00 k/uL [facility] Comprehensive metabolic 2000 panelon 02-16-2023 Albumin [Mass/Vol] 3.7 g/dL Low 3.9 - 4.9 g/dL [facility] ALP [Catalytic activity/Vol] 77 U/L 34 - 123 U/L [facility] ALT [Catalytic activity/Vol] 7 U/L 7 - 38 U/L [facility] Anion gap [Moles/Vol] 14 mmol/L 9 - 18 mmol/L [facility] AST [Catalytic activity/Vol] 13 U/L 13 - 35 U/L [facility] Bilirubin [Mass/Vol] 0.5 mg/dL 0.2 - 1 .3 mg/dL [facility] Calcium [Mass/Vol] 9.7 mg/dL 8.5 - 10. 2 mg/dL [facility] Chloride [Moles/Vol] 97 mmol/L 97 - 10 5 mmol/L [facility] CO2 [Moles/Vol] 24 mmol/L 22 - 30 mmol/L [facility] Creatinine [Mass/Vol] 1.43 mg/dL High 0.58 - 0.96 mg/dL [facility] Estimated Glomerular Filtration Rate 36 mL/min/1.73m Low >=60 mL/min/1.73m [facility] Glucose [Mass/Vol] 206 mg/dL High 74 - 99 mg/dL [facility] Potassium [Moles/Vol] 4.4 mmol/L 3.7 - 5.1 mmol/L [facility] Protein [Mass/Vol] 7.0 g/dL 6.3 - 8.0 g/dL [facility] Sodium [Moles/Vol] 135 mmol/L Low 136 - 144 mmol/L [facility] Urea nitrogen [Mass/Vol] 37 mg/dL High 7 - 21 mg/dL [facility] NT PRO BNPon 02-16-2023 Natriuretic peptide.B prohormone N-Terminal [Mass/Vol] 4595 pg/mL High <450 pg/mL [facility] XR Chest PA and Lateralon IMPRESSION: Stable significant diffuse interstitial abnormality. Cardiomegaly Price Analyst: PSCEmmy Transcribe Date/Time: Feb 16 2023 11:19A Dictated by : KAYLYN HUANG MD This examination was interpreted and the report reviewed and electronically signed by: KAYLYN HUANG MD on Feb 16 2023 11:21AM [facility] DIVISION OF RADIOLOGY * * *Final Report* * * DATE OF EXAM: Feb 15 2023 4:48PM WOX 5291 - XR CHEST 2V FRONTAL/LAT / PROCEDURE REASON: Acute on chronic diastolic congestive heart failure (HCC) * * * * Physician Interpretation * * * * EXAMINATION: CHEST RADIOGRAPH (2 VIEW FRONTAL & LATERAL) CLINICAL HISTORY: Acute on chronic diastolic congestive heart failure (HCC) MQ: XC2_6 EXAM DATE/TIME: 02/15/2023 4:48 PM COMPARISON: 02/06/2023 and 04/21/2018 RESULT: Lines, tubes, and devices: None. Lungs and pleura: Significant diffuse interstitial abnormality is again noted. Not significantly changed in appearance or distribution. No pleural fluid or pneumothorax. No new significant collapse or consolidation Cardiomediastinal silhouette: Mildly enlarged cardiomediastinal silhouette. Bones and soft tissues: Degenerative changes throughout the spine. DIVISION OF RADIOLOGY Provider, [facility] Lola Caro - 02/16/2023 * * *Final Report* * * DATE OF EXAM: Feb 15 2023 4:48PM WOX 5291 - XR CHEST 2V FRONTAL/LAT / PROCEDURE REASON: Acute on chronic diastolic congestive heart failure (HCC) * * * * Physician Interpretation * * * * EXAMINATION: CHEST RADIOGRAPH (2 VIEW FRONTAL & LATERAL) CLINICAL HISTORY: Acute on chronic diastolic congestive heart failure (HCC) MQ: XC2_6 EXAM DATE/TIME: 02/15/2023 4:48 PM COMPARISON: 02/06/2023 and 04/21/2018 RESULT: Lines, tubes, and devices: None. Lungs and pleura: Significant diffuse interstitial abnormality is again noted. Not significantly changed in appearance or distribution. No pleural fluid or pneumothorax. No new significant collapse or consolidation Cardiomediastinal silhouette: Mildly enlarged cardiomediastinal silhouette. Bones and soft tissues: Degenerative changes throughout the spine. IMPRESSION IMPRESSION: Stable significant diffuse interstitial abnormality. Cardiomegaly Price Analyst: PSCEmmy Transcribe Date/Time: Feb 16 2023 11:19A Dictated by : KAYLYN HUANG MD This examination was interpreted and the report reviewed and electronically signed by: KAYLYN HUANG MD on Feb 16 2023 11:21AM EST [facility] XR Chest PA and LateralOrder ed By: Ccf Provider on 02-16-2023 [facility] XR CHEST 2V FRONTAL/LATon [facility] XR Chest PA and Lateralon Radiology Study observation (narrative) [facility] Basic metabolic 2000 panelon 02-08-2023 Anion gap [Moles/Vol] 12 mmol/L Normal 9-18 [facility] Comment on above: Order Comment: Speci men Type: BLOOD SPECIMEN Ordering Facility: [facility] Address: [address] [place] [address] Performed By: #### 1 9123-9, 2777-1, 40617-5 #### [facility] CLIA [id number] [address] [place] [address] [place] Calcium [Mass/Vol] 9.6 mg/dL Normal 8.5-10.2 [facility] Comment on above: Order Comment: Speci men Type: BLOOD SPECIMEN Ordering Facility: [facility] Address: [address] [place] [address] Performed By: #### 1 9123-9, 2777-1, 12154-0 #### [facility] CLIA [id number] [address] [place] [address] [place] Chloride [Moles/Vol] 93 mmol/L Low 97-105 [facility] Comment on above: Order Comment: Speci men Type: BLOOD SPECIMEN Ordering Facility: [facility] Address: [address] [place] [address] Performed By: #### 1 9123-9, 2777-1, 34072-0 #### [facility] CLIA [id number] [address] [place] [address] [place] CO2 [Moles/Vol] 24 mmol/L Normal 22-30 [facility] Comment on above: Order Comment: Speci men Type: BLOOD SPECIMEN Ordering Facility: [facility] Address: [address] [place] [address] Performed By: #### 1 9123-9, 2777-1, 93506-9 #### [facility] CLIA [id number] [address] [place] Creatinine [Mass/Vol] 1.44 mg/dL High 0.58-0.96 [facility] Comment on above: Order Comment: Speci men Type: BLOOD SPECIMEN Ordering Facility: [facility] Address: [address] [place] [address] Performed By: #### 1 9123-9, 27709-12, 30130-0 #### [facility] CLIA [id number] [address] OF [facility] Creatinine and Glomerular filtration rate.predicted panel (S/P/Bld) 35 mL/min/1.73m??? Low >=60 [facility] Comment on above: Order Comment: Speci men Type: BLOOD SPECIMEN Ordering Facility: [facility] Address: [address] [place] [address] Result Comment: Silvia mated Glomerular Filtration Rate (eGFR) is calculated using the 2020 CKD-EPI creatinine equation. This equation utilizes serum creatinine, sex, and age as parameters. The creatinine assay has traceable calibration to isotope dilution-mass spectrometry. Refer to KDIGO guidelines for clinical interpretation. In patients with unstable renal function, e.g. those with acute kidney injury, the eGFR may not accurately reflect actual GFR. Performed By: #### 1 9123-9, 2777-1, 69151-2 #### [facility] CLIA [id number] [address] [place] Glucose [Mass/Vol] 97 mg/dL Normal 74-99 [facility] Comment on above: Order Comment: Speci men Type: BLOOD SPECIMEN Ordering Facility: [facility] Address: [address] [place] [address] Result Comment: The [place] Diabetes Association (ADA) provides guidance for cutoff values for fasting glucose and random glucose. The ADA defines fasting as no caloric intake for at least 8 hours. Fasting plasma glucose results between 100 to 125 mg/dL indicate increased risk for diabetes (prediabetes). Fasting plasma glucose results greater than or equal to 126 mg/dL meet the criteria for diagnosis of diabetes. In the absence of unequivocal hyperglycemia, results should be confirmed by repeat testing. In a patient with classic symptoms of hyperglycemia or hyperglycemic crisis, random plasma glucose results greater than or equal to 200 mg/dL meet the criteria for diagnosis of diabetes. Reference: Standards of Medical Care in Diabetes 2016, [place] [employer] Association. Diabetes Care. 2016.39(Suppl 1). Performed By: #### 1 9123-9, 2777-1, 71644-9 #### [facility] CLIA [id number] [address] [place] [address] [place] Potassium [Moles/Vol] 3.9 mmol/L Normal 3.7-5.1 [facility] Comment on above: Order Comment: Yeimi paulson Type: BLOOD SPECIMEN Ordering Facility: [facility] Address: [address] [place] [address] Performed By: #### 1 9123-9, 2777, 84942-3 #### [facility] CLIA [id number] [address] [place] [address] [place] Sodium [Moles/Vol] 129 mmol/L Low 136-144 [facility] Comment on above: Order Comment: Yeimi paulson Type: BLOOD SPECIMEN Ordering Facility: [facility] Address: [address] [place] [address] Performed By: #### 1 9123-9, 2777, 34707-9 #### [facility] CLIA [id number] [address] [place] [address] [place] Urea nitrogen [Mass/Vol] 51 mg/dL High 7-21 [facility] Comment on above: Order Comment: Yeimi paulson Type: BLOOD SPECIMEN Ordering Facility: [facility] Address: [address] [place] [address] Performed By: #### 1 9123-9, 2777-, 03538-8 #### [facility] CLIA [id number] [address] OF [facility] CASE MANAGEMon 02-08-2023 CASE MANAGEM HNO ID: [id number] Author: Chelsea Carter LSW Service: ? Author Type: Ict Sales Assistant Type: Care Mgt Progress Note Filed: 02/08/2023 4:38 PM Note Text: CARE MANAGEMENT PROGRESS NOTE SERVICE DATE: 02/08/2023 SERVICE TIME: No clot detected at 320 seconds. Suggest correlation with clinical findings and redraw if indicated. LOS: 2 days Trauma Assessment- Reviewed chart. Pt's tox screen was not done at this time. There is no concern for substance abuse at this time.Trauma assessment not appropriate at this time. See CM note for transitional care needs. SIGNATURE: CAROL Dunn PATIENT NAME: Neelam Ryan DATE: February 08, 2023 TIME: 4:37 PM PAGER/CONTACT #: [phone] Normal [facility] CBC panel Auto (Bld)on 02-08 Erythrocyte distribution width (RBC) [Ratio] 16.2 % High 11.5-15.0 [facility] Comment on above: Order Comment: Speci men Type: BLOOD SPECIMEN Ordering Facility[facility] Address: [address] [place] [address] Performed By: #### 5 8410-2 #### [facility] CLIA [id number] [address] OF [facility] Hematocrit (Bld) [Volume fraction] 25.2 % Low 36.0-46.0 [facility] Comment on above: Order Comment: Speci men Type: BLOOD SPECIMEN Ordering Facility: [facility] Address: [address] [place] [address] Performed By: #### 5 8410-2 #### [facility] CLIA [id number] [address] [place] Hemoglobin (Bld) [Mass/Vol] 8.6 g/dL Low 11.5-15.5 [facility] Comment on above: Order Comment: Speci men Type: BLOOD SPECIMEN Ordering Facility: [facility] Address: [address] [place] [address] Performed By: #### 5 8410-2 #### [facility] CLIA [id number] [address] MCH (RBC) [Entitic mass] 37.1 pg High 26.0-34.0 [facility] Comment on above: Order Comment: Speci men Type: BLOOD SPECIMEN Ordering Facility[facility] Address: [address] [place] [address] Performed By: #### 5 8410-2 #### [facility] CLIA [id number] [address] MCHC (RBC) [Mass/Vol] 34.1 g/dL Normal 30.5-36.0 [facility] Comment on above: Order Comment: Speci men Type: BLOOD SPECIMEN Ordering Facility[facility] Address: [address] [place] [address] Performed By: #### 5 8410-2 #### [facility] CLIA [id number] [address] MCV (RBC) [Entitic vol] 108.6 fL High 80.0-100.0 [facility] Comment on above: Order Comment: Speci men Type: BLOOD SPECIMEN Ordering Facility[facility] Address: [address] [place] [address] Performed By: #### 5 8410-2 #### [facility] CLIA [id number] [address] Nucleated RBC (Bld) [#/Vol] 0.15 10*3/uL High <0.01 [facility] Comment on above: Order Comment: Speci men Type: BLOOD SPECIMEN Ordering Facility[facility] Address: [address] [place] [address] Performed By: #### 5 8410-2 #### [facility] CLIA [id number] [address] Platelet mean volume (Bld) [Entitic vol] 9.2 fL Normal 9.0-12.7 [facility] Comment on above: Order Comment: Speci men Type: BLOOD SPECIMEN Order[facility] Facility[facility] Address: [address] [place] [address] Performed By: #### 5 8410-2 #### [facility] CLIA [id number] [address] Platelets (Bld) [#/Vol] 436 10*3/uL High 150-400 [facility] Comment on above: Order Comment: Speci men Type: BLOOD SPECIMEN Ordering Facility[facility] Address: [address] [place] [address] Performed By: #### 5 8410-2 #### [facility] CLIA [id number] [address] RBC (Bld) [#/Vol] 2.32 10*6/uL Low 3.90-5.20 [facility] Comment on above: Order Comment: Speci men Type: BLOOD SPECIMEN Ordering Facility: [facility] Address: [address] [place] [address] Performed By: #### 5 8410-2 #### [facility] CLIA [id number] [address] WBC (Bld) [#/Vol] 12.14 10*3/uL High 3.70-11.00 [facility] Comment on above: Order Comment: Speci men Type: BLOOD SPECIMEN [facility] Address: [address] [place] [address] Performed By: #### 5 8410-2 #### [facility] CLIA [id number] [address] CNDSon 02-08-2023 [facility] HNO ID: [id number] Author: Leandro Amador PA-C Service: General Surgery Author Type: Physician Supply Chain Design Manager Type: Discharge Summary Filed: 02/08/2023 1:38 PM Note Text: Attestation signed by Vimal Brice MD at 02/10/2023 10:21 AM Attending Attestation The patient will be discharged today. I spent less than 30 minutes coordinating the discharge. Vimal Brice MD DISCHARGE SUMMARY PATIENT NAME: Neelam Ryan Code Status: DNR-CCA Highest Readmission Risk Score: 26 The 30 day readmissions risk score is derived from an internally validated risk model which evaluates patient level characteristics, utilization history, medication orders and lab results up until the day of discharge. Patients with a score of 40 or above are considered highest risk for readmission. Specific patient level drivers will be listed at the bottom of the summary. Admission Information Admission Information ADMIT DATE: 02/06/2023 DISCHARGE DATE: 02/08/2023 MY DOCTORS AND MEDICAL TEAM: My Main [facility] Doctor: Vimal Brice MD Primary Care Provider: Frank Fuentes MD My Medical Team Members: Treatment Team: Attending Provider: Vimal Brice MD Physician Supply Chain Design Manager: Leandro Amador PA-C MY CONDITION AT DISCHARGE: Stable REASON I WAS IN THE HOSPITAL: Treatment of injuries sustained during a fall; Traumatic brain injury SUMMARY OF WHAT HAPPENED WHILE I WAS IN THE HOSPITAL: Ms. Neelam Ryan presented to [facility] as a transfer from [facility] on 02/05/2023 for treatment of injuries sustained during a reported fall. CT imaging revealed a small subdural hematoma (brain bleed) along the falx. She was noted to on Plavix which was reversed with DDAVP due to elevated bleeding risk associated with her brain injury. She was admitted to close neurological monitoring. Neurosurgery was consulted and recommended non-surgical management of her brain injury. Repeat CT scan of her [place] completed on 02/06/2023 remained stable. Her blood sodium was noted to be low on 02/08/2023 at 129 from normal range of 136 the day prior. Recheck of her sodium was also 129. Her hyponatremia was likely attributable to DDAVP administration for Plavix reversal. She was started on a short-course of salt tablets with instruction to have follow-up labs completed 1 week after discharge. Ms. Ryan was evaluated by physical therapy who recommended home at discharge. She was discharged in stable condition on 02/08/2023. She would require outpatient follow-up care with her treating neurosurgeon 10-days after discharge with repeat CT imaging of her brain. She is to avoid taking blood thinners such as aspirin or Plavix until cleared to resume by her treating neurosurgeon. It was also recommended that she follow-up closely with her primary care physician for further long-term medical care. OTHER PROBLEMS/DIAGNOSIS: Principal Problem: Subdural hematoma (HCC) Active Problems: Fall Hyponatremia Resolved Problems: * No resolved hospital problems. * OPERATIONS PERFORMED WHILE IN THE HOSPITAL: None IMPORTANT TEST/PROCEDURES: No procedures performed TEST RESULTS NOT AVAILABLE AT THIS TIME: No pending results Discharge Disposition Discharge Disposition: Home With Self Care Activity When You Leave the Hospital Do not bend over at the waist to lift heavy objects May bathe and shower May walk with a walker No prolonged bedrest, longer than 8 hours in a 24 hour period Resume pre-hospital activity Diet Instructions Avoid Alcohol Resume your pre-hospital diet For Pain When You Leave the Hospital No alcohol or driving while on pain medication Use acetaminophen (Tylenol) as recommended on the bottle Use the dispensed medication (see prescription) Call Your Doctor If You have a severe headache You have lightheadedness, fainting, or confusion You have pain and swelling in your legs, especially if it is only on one side and not the other You have persistent nausea/vomiting over 24 hours You have swollen glands or cold and clammy skin Your temperature is greater than 101F Follow Up Appointments Follow-Up Appointment Please follow-up with your treating neurosurgeon in 10 days as recommended. When: In: Comment - 10 days Patient/Parents to call for appointment?: Yes Nimesh Phillips MD [phone] [place] [address] PCP Requested Referral Follow-Up Appointment When: In 2 weeks Patient/Parents to call for appointment?: Yes Frank Fuentes MD [phone] [address] [facility] [address] PCP Requested Referral Additional Provider to Provider Information: No notes on file Treatment Team: Attending Provider: Vimal Brice MD Physician As (more content not included)... Normal [facility] Sodium SerPl-sCncon 02-09-20 Sodium [Moles/Vol] 129 mmol/L Low 136-144 [facility] Comment on above: Order Comment: Speci men Type: BLOOD SPECIMEN [facility] Address: [address] [place] [address] Performed By: #### 1 9123-9, 2777-1, 13314-9 #### [facility] CLIA [id number] [address] THERAPY NTon 02-08-2023 THERAPY NT HNO ID: [id number] Author: Laurita Mckinnon, PT Service: Physical Therapy Author Type: Physical Therapist Type: Therapy (PT/OT/Speech/Resp) Filed: 02/08/2023 11:02 AM Note Text: Physical Therapy Evaluation SERVICE DATE: 02/08/2023 SERVICE TIME: 0840 to 0855 ROOM: [place] [address] Recommended Discharge Disposition: Home Anticipated Discharge Needs: Physical Assist at Home Physical Assist at Home for: Cleaning, Laundry, Medication Management, Shopping, Transportation PT 6 Clicks Score: 20 Patient able to ambulate with contact guard assist and wheeled walker in the hallway, no loss of balance, fatigues with mobility but steady. Anticipate return home at discharge. Isolation Type: None Current Hospital Course: +SDH, stable on imaging Reason for Hospital Admission: Transfer from [place] post fall Relevant Past Medical History: CKD, OA, DM Response to Therapy Interventions: Good Participation in Activities Continued Skilled Needs Due to: Functional Mobility/Skill Impairments Physical Therapy Problem List: Education Deficit, Safety Deficits, Functional Mobility Impairment, Balance Impaired Treatment Interventions: Education, Strengthening, Functional Mobility Training, Balance Training Home Environment Patient Lives With: Self/Alone Assistance Available: Part-Time (has supportive neighbor) Entry To Home: No Stairs Tub/Shower Type: tub Equipment Owned: Cane, Shower Chair, Walker- Wheeled Prior Functional Level: Within Functional Limits Prior Functional Level Comments: Independent with occasional use of walker Subjective: Agreeable to PT CURRENT FUNCTIONAL STATUS: Most recent performance Current Functional Mobility Assist Level Additional Information Rolling Supine to Sit Sit to Supine Scooting Sit to Stand Contact Guard Assistance Stand to Sit Contact Guard Assistance Bed to Chair Toilet/Commode Gait Contact Guard Assistance Gait Device: Wheeled Walker Gait Distance (feet): 35 x 2 Stairs Curb Step Car Transfer Blank yu indicate activity not attempted General Deviations/Observations : Birdie decreased Range of Motion: WFL Strength: WFL Balance: Static Standing, Dynamic Standing Static Standing Balance: Fair Patient able to maintain balance with handhold support, may require occasional minimal assistance Dynamic Standing Balance: Fair Patient accepts minimal challenge, able to maintain balance while turning head/trunk JH-HLM: 7: Walk 25 feet or more Learning/Educational Needs: Discharge Plan, Functional Activities/Mobility, Plan of Care, Safety Goals for Plan of Care: Patient/Caregiver Goals: Go Home Transfer Supine to/from Sit with: Independent Transfer Sit to/from Stand with: Independent Ambulate with: Independent Distance: 60 feet intervals Device: Wheeled Walker Rehab Potential: Good Patient will be discontinued from Physical Therapy when no further skilled needs are identified in this setting. PLAN: PT Frequency: 3 Times Per Week (2-3) Plan of Care developed with: Patient TREATMENT INTERVENTIONS: Therapy Diagnosis: Reduced mobility-other, Unsteadiness on feet Interventions Provided: Evaluation $ Evaluation-Moderate (74748) Billed Units: 1 unit Training AND Education Provided in: Benefits of In-Hospital Mobility, Role of Physical Therapy The Following Therapeutic Skills Were Used: Cues for Sequencing/Proper Technique for Activity, Movement Facilitation Skilled Treatment Time (minutes): 15 Please see discipline specific clinical documentation flowsheet for complete details for this therapy evaluation/treatment. SIGNATURE: Laurita Mckinnon PT PATIENT NAME: Neelam Ryan DATE: February 08, 2023 TIME: 11:01 AM Normal [facility] Basic metabolic 2000 panelon 02-07-2023 Anion gap [Moles/Vol] 14 mmol/L Normal 9-18 [facility] Comment on above: Order Comment: Speci men Type: BLOOD SPECIMEN [facility] Address: [address] [place] [address] Performed By: #### 2 4321-2 #### [facility] CLIA [id number] [address] [place] Calcium [Mass/Vol] 9.8 mg/dL Normal 8.5-10.2 [facility] Comment on above: Order Comment: Speci men Type: BLOOD SPECIMEN [facility] Address: [address] [place] [address] Performed By: #### 2 4321-2 #### [facility] CLIA [id number] [address] [place] Chloride [Moles/Vol] 99 mmol/L Normal 97-105 [facility] Comment on above: Order Comment: Speci men Type: BLOOD SPECIMEN [facility] Address: [address] [place] [address] Performed By: #### 2 4321-2 #### [facility] CLIA [id number] [address] [place] CO2 [Moles/Vol] 23 mmol/L Normal 22-30 [facility] Comment on above: Order Comment: Speci men Type: BLOOD SPECIMEN [facility] Address: [address] [place] [address] Performed By: #### 2 4321-2 #### [facility] CLIA [id number] [address] [place] Creatinine [Mass/Vol] 1.38 mg/dL High 0.58-0.96 [facility] Comment on above: Order Comment: Speci men Type: BLOOD SPECIMEN [facility] Address: [address] [place] [address] Performed By: #### 2 4321-2 #### [facility] CLIA [id number] [address] [place] Creatinine and Glomerular filtration rate.predicted panel (S/P/Bld) 37 mL/min/1.73m??? Low >=60 [facility] Comment on above: Order Comment: Speci men Type: BLOOD SPECIMEN [facility] Address: [address] [place] [address] Result Comment: Silvia mated Glomerular Filtration Rate (eGFR) is calculated using the 2020 CKD-EPI creatinine equation. This equation utilizes serum creatinine, sex, and age as parameters. The creatinine assay has traceable calibration to isotope dilution-mass spectrometry. Refer to KDIGO guidelines for clinical interpretation. In patients with unstable renal function, e.g. those with acute kidney injury, the eGFR may not accurately reflect actual GFR. Performed By: #### 2 4321-2 #### [facility] CLIA [id number] [address] [place] [address] [place] Glucose [Mass/Vol] 100 mg/dL High 74-99 [facility] Comment on above: Order Comment: Yeimi paulson Type: BLOOD SPECIMEN [facility] Address: [address] [place] [address] Result Comment: The [place] Diabetes Association (ADA) provides guidance for cutoff values for fasting glucose and random glucose. The ADA defines fasting as no caloric intake for at least 8 hours. Fasting plasma glucose results between 100 to 125 mg/dL indicate increased risk for diabetes (prediabetes). Fasting plasma glucose results greater than or equal to 126 mg/dL meet the criteria for diagnosis of diabetes. In the absence of unequivocal hyperglycemia, results should be confirmed by repeat testing. In a patient with classic symptoms of hyperglycemia or hyperglycemic crisis, random plasma glucose results greater than or equal to 200 mg/dL meet the criteria for diagnosis of diabetes. Reference: Standards of Medical Care in Diabetes 2016, [place] [employer] Association. Diabetes Care. 2016.39(Suppl 1). Performed By: #### 2 4321-2 #### [facility] CLIA [id number] [address] [place] [address] [place] Potassium [Moles/Vol] 3.9 mmol/L Normal 3.7-5.1 [facility] Comment on above: Order Comment: Yeimi paulson Type: BLOOD SPECIMEN [facility] Address: [address] [place] [address] Performed By: #### 2 4321-2 #### [facility] CLIA [id number] [address] Sodium [Moles/Vol] 136 mmol/L Normal 136-144 [facility] Comment on above: Order Comment: Speci men Type: BLOOD SPECIMEN [facility] Address: [address] [place] [address] Performed By: #### 2 4321-2 #### [facility] CLIA [id number] [address] [place] Urea nitrogen [Mass/Vol] 50 mg/dL High 7-21 [facility] Comment on above: Order Comment: Speci men Type: BLOOD SPECIMEN [facility] Address: [address] [place] [address] Performed By: #### 2 4321-2 #### [facility] CLIA [id number] [address] STATES OF [facility] CBC panel Auto (Bld)on 02-07 Erythrocyte distribution width (RBC) [Ratio] 16.0 % High 11.5-15.0 [facility] Comment on above: Order Comment: Speci men Type: BLOOD SPECIMEN [facility] Address: [address] [place] [address] Performed By: #### 5 8410-2 #### [facility] CLIA [id number] [address] [place] Hematocrit (Bld) [Volume fraction] 24.8 % Low 36.0-46.0 [facility] Comment on above: Order Comment: Speci men Type: BLOOD SPECIMEN [facility] Address: [address] [place] [address] Performed By: #### 5 8410-2 #### [facility] CLIA [id number] [address] [place] Hemoglobin (Bld) [Mass/Vol] 8.3 g/dL Low 11.5-15.5 [facility] Comment on above: Order Comment: Speci men Type: BLOOD SPECIMEN [facility] Address: [address] [place] [address] Performed By: #### 5 8410-2 #### [facility] CLIA [id number] [address] MCH (RBC) [Entitic mass] 36.4 pg High 26.0-34.0 [facility] Comment on above: Order Comment: Speci men Type: BLOOD SPECIMEN [facility] Address: [address] [place] [address] Performed By: #### 5 8410-2 #### [facility] CLIA [id number] [address] MCHC (RBC) [Mass/Vol] 33.5 g/dL Normal 30.5-36.0 [facility] Comment on above: Order Comment: Speci men Type: BLOOD SPECIMEN [facility] Address: [address] [place] [address] Performed By: #### 5 8410-2 #### [facility] CLIA [id number] [address] MCV (RBC) [Entitic vol] 108.8 fL High 80.0-100.0 [facility] Comment on above: Order Comment: Speci men Type: BLOOD SPECIMEN [facility] Address: [address] [place] [address] Performed By: #### 5 8410-2 #### [facility] CLIA [id number] [address] Nucleated RBC (Bld) [#/Vol] 0.13 10*3/uL High <0.01 [facility] Comment on above: Order Comment: Speci men Type: BLOOD SPECIMEN [facility] Address: [address] [place] [address] Performed By: #### 5 8410-2 #### [facility] CLIA [id number] [address] Platelet mean volume (Bld) [Entitic vol] 8.9 fL Low 9.0-12.7 [facility] Comment on above: Order Comment: Speci men Type: BLOOD SPECIMEN [facility] Address: [address] [place] [address] Performed By: #### 5 8410-2 #### [facility] CLIA [id number] [address] Platelets (Bld) [#/Vol] 441 10*3/uL High 150-400 [facility] Comment on above: Order Comment: Speci men Type: BLOOD SPECIMEN [facility] Address: [address] [place] [address] Performed By: #### 5 8410-2 #### [facility] CLIA [id number] [address] RBC (Bld) [#/Vol] 2.28 10*6/uL Low 3.90-5.20 [facility] Comment on above: Order Comment: Speci men Type: BLOOD SPECIMEN [facility] Address: [address] [place] [address] Performed By: #### 5 8410-2 #### [facility] CLIA [id number] [address] WBC (Bld) [#/Vol] 13.72 10*3/uL High 3.70-11.00 [facility] Comment on above: Order Comment: Speci men Type: BLOOD SPECIMEN [facility] Address: [address] [place] [address] Performed By: #### 5 8410-2 #### [facility] CLIA [id number] [address] ALLIED HEALTHon 02-06-2023 ALLIED HEALTH HNO ID: [id number] Author: Jenae Galvez RT(Jamar) Service: Radiology Author Type: [place] Administrator Type: [facility] Filed: 02/06/2023 12:57 PM Note Text: Radiology Service Progress Note PATIENT NAME: Neelam Ryan DATE OF SERVICE: February 06, 2023 TIME: 12:57 PM PATIENT IDENTITY VERIFICATION COMPLETED USING TWO (2) IDENTIFIERS: Name and Date of confirmed by patient verbally and Name and Date of confirmed by identification band. FALL SCREENING: Has the patient had 2 falls in the last year or 1 fall with injury or currently using an Ambulatory Assistive Device (Walker, Cane, Wheelchair, Crutches, etc.)? Inpatient: Screened on floor PATIENT GENDER DATA: Female. status: : No status: NO. PATIENT RELEVANT IMPLANT DATA REVIEWED: Not Applicable RADIOLOGY DEPARTMENT: CT; Exam(s) Completed: Brain PERIPHERAL IV DATA: Not applicable SIGNED BY: Jenae Galvez RT(R) February 06, 2023 12:57 PM [facility] HNO ID: [id number] Author: Breann Blanc RT(R) Service: Radiology Author Type: Technologist Type: Allied Health Filed: 02/06/2023 12:45 PM Note Text: Radiology Service Progress Note PATIENT NAME: Neelam Ryan DATE OF SERVICE: February 06, 2023 TIME: 12:45 PM PATIENT IDENTITY VERIFICATION COMPLETED USING TWO (2) IDENTIFIERS: Name and Date of confirmed by patient verbally and Name and Date of confirmed by identification band. FALL SCREENING: Has the patient had 2 falls in the last year or 1 fall with injury or currently using an Ambulatory Assistive Device (Walker, Cane, Wheelchair, Crutches, etc.)? Inpatient: Screened on floor PATIENT GENDER DATA: Female. status: : No status: NO. PATIENT RELEVANT IMPLANT DATA REVIEWED: Not Applicable RADIOLOGY DEPARTMENT: General X-ray: Exam(s) Completed: Chest X-Ray PERIPHERAL IV DATA: Not applicable SIGNED BY: RT Meg(R) February 06, 2023 12:45 PM [facility] HNO ID: [id number] Author: Francisca Flynn RT(R) Service: Radiology Author Type: [place] Administrator Type: [facility] Filed: 02/06/2023 5:09 AM Note Text: Radiology Service Progress Note PATIENT NAME: Neelam Ryan DATE OF SERVICE: February 06, 2023 TIME: 5:09 AM PATIENT IDENTITY VERIFICATION COMPLETED USING TWO (2) IDENTIFIERS: Name and Date of confirmed by patient verbally and Name and Date of confirmed by identification band. FALL SCREENING: Has the patient had 2 falls in the last year or 1 fall with injury or currently using an Ambulatory Assistive Device (Walker, Cane, Wheelchair, Crutches, etc.)? Emergency Room Patient: Screened in ED PATIENT GENDER DATA: Female. status: : No status: NO. PATIENT RELEVANT IMPLANT DATA REVIEWED: Not Applicable RADIOLOGY DEPARTMENT: CT; Exam(s) Completed: Brain PERIPHERAL IV DATA: Not applicable SIGNED BY: Francisca Flynn RT(R)(CT) February 06, 2023 5:09 AM Normal [facility] Basic metabolic 2000 panelon 02-06-2023 Anion gap [Moles/Vol] 16 mmol/L Normal 9-18 [facility] Comment on above: Order Comment: Speci men Type: BLOOD SPECIMEN [facility] Address: [address] [place] [address] Performed By: #### 1 9123-9, 2777-1, 25730-3 #### [facility] CLIA [id number] [address] [place] [address] [place] Calcium [Mass/Vol] 10.2 mg/dL Normal 8.5-10.2 [facility] Comment on above: Order Comment: Speci men Type: BLOOD SPECIMEN [facility] Address: [address] [place] [address] Performed By: #### 1 9123-9, 2777-1, 88686-9 #### [facility] CLIA [id number] [address] [place] [address] [place] Chloride [Moles/Vol] 95 mmol/L Low 97-105 [facility] Comment on above: Order Comment: Speci men Type: BLOOD SPECIMEN [facility] Address: [address] [place] [address] Performed By: #### 1 9123-9, 2777-1, 50352-2 #### [facility] CLIA [id number] [address] [place] [address] [place] CO2 [Moles/Vol] 25 mmol/L Normal 22-30 [facility] Comment on above: Order Comment: Speci men Type: BLOOD SPECIMEN [facility] Address: [facility] [place] [address] Performed By: #### 1 9123-9, 2777-1, 86123-8 #### [facility] CLIA [id number] [address] STATES OF [facility] Creatinine [Mass/Vol] 1.61 mg/dL High 0.58-0.96 [facility] Comment on above: Order Comment: Yeimi paulson Type: BLOOD SPECIMEN [facility] Address: [address] [place] [address] Performed By: #### 1 9123-9, 2777-1, 71593-6 #### [facility] CLIA [id number] [address] Creatinine and Glomerular filtration rate.predicted panel (S/P/Bld) 31 mL/min/1.73m??? Low >=60 [facility] Comment on above: Order Comment: Yeimi paulson Type: BLOOD SPECIMEN [facility] Address: [address] [place] [address] Result Comment: Silvia mated Glomerular Filtration Rate (eGFR) is calculated using the 2020 CKD-EPI creatinine equation. This equation utilizes serum creatinine, sex, and age as parameters. The creatinine assay has traceable calibration to isotope dilution-mass spectrometry. Refer to KDIGO guidelines for clinical interpretation. In patients with unstable renal function, e.g. those with acute kidney injury, the eGFR may not accurately reflect actual GFR. Performed By: #### 1 9123-9, 2777-1, 73134-7 #### [facility] CLIA [id number] [address] [place] Glucose [Mass/Vol] 156 mg/dL High 74-99 [facility] Comment on above: Order Comment: Yeimi paulson Type: BLOOD SPECIMEN [facility] Address: [address] [place] [address] Result Comment: The [place] Diabetes Association (ADA) provides guidance for cutoff values for fasting glucose and random glucose. The ADA defines fasting as no caloric intake for at least 8 hours. Fasting plasma glucose results between 100 to 125 mg/dL indicate increased risk for diabetes (prediabetes). Fasting plasma glucose results greater than or equal to 126 mg/dL meet the criteria for diagnosis of diabetes. In the absence of unequivocal hyperglycemia, results should be confirmed by repeat testing. In a patient with classic symptoms of hyperglycemia or hyperglycemic crisis, random plasma glucose results greater than or equal to 200 mg/dL meet the criteria for diagnosis of diabetes. Reference: Standards of Medical Care in Diabetes 2016, [place] [employer] Association. Diabetes Care. 2016.39(Suppl 1). Performed By: #### 1 9123-9, 2777-, 63998-3 #### [facility] CLIA [id number] [address] [place] [address] [place] Potassium [Moles/Vol] 4.4 mmol/L Normal 3.7-5.1 [facility] Comment on above: Order Comment: Giuseppei lorene Type: BLOOD SPECIMEN [facility] Address: [address] [place] [address] Performed By: #### 1 9123-9, 2777, 50931-0 #### [facility] CLIA [id number] [address] STATES OF [facility] Sodium [Moles/Vol] 136 mmol/L Normal 136-144 [facility] Comment on above: Order Comment: Yeimi paulson Type: BLOOD SPECIMEN [facility] Address: [address] [place] [address] Performed By: #### 1 9123-9, 2777, 10059-0 #### [facility] CLIA [id number] [address] [place] Urea nitrogen [Mass/Vol] 59 mg/dL High 7-21 [facility] Comment on above: Order Comment: Giuseppei lorene Type: BLOOD SPECIMEN [facility] Address: [address] [place] [address] Performed By: #### 1 9123-9, 2777-1, 74308-2 #### [facility] CLIA [id number] [address] [place] CBC panel Auto (Bld)on 02-06 Erythrocyte distribution width (RBC) [Ratio] 15.9 % High 11.5-15.0 [facility] Comment on above: Order Comment: Speci men Type: BLOOD SPECIMEN [facility] Address: [address] [place] [address] Performed By: #### 1 9123-9, 27709-12, 63233-7 #### [facility] CLIA [id number] [address] [place] Hematocrit (Bld) [Volume fraction] 27.0 % Low 36.0-46.0 [facility] Comment on above: Order Comment: Speci men Type: BLOOD SPECIMEN [facility] Address: [address] [place] [address] Performed By: #### 1 9123-9, 2776-03, #### [facility] CLIA [id number] [address] [place] [address] [place] Hemoglobin (Bld) [Mass/Vol] 9.3 g/dL Low 11.5-15.5 [facility] Comment on above: Order Comment: Speci men Type: BLOOD SPECIMEN [facility] Address: [address] [place] [address] Performed By: #### 1 9123-9, 2776-03, #### [facility] CLIA [id number] [address] [place] [address] [place] MCH (RBC) [Entitic mass] 37.2 pg High 26.0-34.0 [facility] Comment on above: Order Comment: Speci men Type: BLOOD SPECIMEN [facility] Address: [address] [place] [address] Performed By: #### 1 9123-9, 27709-12, 79861-4 #### [facility] CLIA [id number] [address] [place] MCHC (RBC) [Mass/Vol] 34.4 g/dL Normal 30.5-36.0 [facility] Comment on above: Order Comment: Speci men Type: BLOOD SPECIMEN [facility] Address: [address] [place] [address] Performed By: #### 1 9123-9, 2777, 54476-4 #### [employer] [facility] CLIA [id number] [address] MCV (RBC) [Entitic vol] 108.0 fL High 80.0-100.0 [facility] Comment on above: Order Comment: Speci men Type: BLOOD SPECIMEN [facility] Address: [address] [place] [address] Performed By: #### 1 9123-9, 2777, 61491-4 #### [facility] CLIA [id number] [address] [place] Nucleated RBC (Bld) [#/Vol] 0.18 10*3/uL High <0.01 [facility] Comment on above: Order Comment: Speci men Type: BLOOD SPECIMEN [facility] Address: [address] [place] [address] Performed By: #### 1 9123-9, 2777, 97487-5 #### [facility] CLIA [id number] [address] [place] Platelet mean volume (Bld) [Entitic vol] 9.3 fL Normal 9.0-12.7 [facility] Comment on above: Order Comment: Speci men Type: BLOOD SPECIMEN [facility] Address: [address] [place] [address] Performed By: #### 1 9123-9, 2777, 47356-9 #### [facility] CLIA [id number] [address] [place] Platelets (Bld) [#/Vol] 548 10*3/uL High 150-400 [facility] Comment on above: Order Comment: Speci men Type: BLOOD SPECIMEN [facility] Address: [address] [place] [address] Performed By: #### 1 9123-9, 2777-1, 98482-0 #### [facility] CLIA [id number] [address] [place] [address] [place] RBC (Bld) [#/Vol] 2.50 10*6/uL Low 3.90-5.20 [facility] Comment on above: Order Comment: Speci men Type: BLOOD SPECIMEN [facility] Address: [address] [place] [address] Performed By: #### 1 9123-9, 2777-1, 30031-6 #### [facility] CLIA [id number] [address] [place] WBC (Bld) [#/Vol] 14.78 10*3/uL High 3.70-11.00 [facility] Comment on above: Order Comment: Speci men Type: BLOOD SPECIMEN [facility] Address: [address] [place] [address] Performed By: #### 1 9123-9, 2777-1, 99589-9 #### [facility] CLIA [id number] [address] OF [facility] CONSULTon 02-06-2023 CONSULT HNO ID: [id number] Author: Concepcion Rizvi MD Service: General Surgery Author Type: Physician Type: Consults Filed: 02/06/2023 10:13 AM Note Text: Surgical Intensive Care Unit Consult Note SERVICE DATE: 02/06/2023 SERVICE TIME: 4:30 AM REASON FOR CONSULT: [facility] REQUESTING PHYSICIAN: Dr. Beatty Subjective 87 year old female with PMH CKD stage IV, OA, depression, CAD s/p heart cath, T2DM, HTN, hypothyroidism, sciatica, HLD, lap barbara, hernia repair presents to the ED as transfer from [place] after [facility]. Patient states she was in her room when she tripped and fell, striking the back of her head on the end table and landing onto a cough. She denies any LOC. She does admit to taking plavix, last taken 02/05 around noon. GCS at [facility] was 15. On exam, patient is HDS and neurologically intact. She admits to headache. FUNCTIONAL STATUS: Independent PAST MEDICAL HISTORY Diagnosis Date Basal cell carcinoma Dr. Lambert Cholecystitis, unspecified Chronic kidney disease (CKD), stage IV (severe) (HCC) Dr. Montgomery Coronary atherosclerosis of unspecified type of vessel, tulalip or graft Dr. Davenport Depression Hammertoes of both feet Multinodular goiter 05/21/2016 Osteoarthritis Other and unspecified anemias Pure hypercholesterolemia Sciatica Swelling of lower extremity Type II or unspecified type diabetes mellitus without mention of complication, not stated as uncontrolled Podiatry-Dr. Mcgee Unspecified essential hypertension Unspecified hypothyroidism PAST SURGICAL HISTORY Procedure Laterality Date COLONOSCOPY FLX DX W/COLLJ SPEC WHEN PFRMD 01/30/2005 Colonoscopy COLONOSCOPY FLX DX W/COLLJ SPEC WHEN PFRMD 08/05/2015 Colonoscopy ESOPHAGOGASTRODUODENOSC OPY TRANSORAL DIAGNOSTIC 01/30/2005 EGD HEART CATHETERIZATION 09/2018 angiopasty of circumflex, 75% stenosis. LAD 80%. LAPAROSCOPY SURG CHOLECYSTECTOMY 12/02/2005 Cholecystectomy, lap PAST SURGICAL HISTORY OF hernia PAST SURGICAL HISTORY OF carpal tunnel both hands PAST SURGICAL HISTORY OF fingers different times PAST SURGICAL HISTORY OF trigger finger PAST SURGICAL HISTORY OF 06/21/2006 heart cath with stent placement [facility] PAST SURGICAL HISTORY OF 04/24/2008 vaginal hysterectomy, bladder suspension, rectocele PAST SURGICAL HISTORY OF 11/20/11 cardiac cath; percutaneous transluminal coronary angioplasty with stent @ [facility] PAST SURGICAL HISTORY OF left wrist surgery TOTAL THYROID LOBECTOMY UNI W/WO ISTHMUSECTOMY Right 05/21/2016 TRANSCATH STENT INIT VESSEL,PERCUT 08/18 Transcath stent init vessel percut LAD [facility] FAMILY HISTORY Problem Relation Age of Onset Diabetes Mother CAD, ANGIOPLASTY Diabetes Father DC other (DC) Brother other (OHS) Sister other (DC) Brother Heart Sister diabetic Heart Sister Heart Sister diabetic Heart Sister diabetic Social History Tobacco Use Smoking status: Never Smokeless tobacco: Never Vaping Use Vaping Use: Never used Substance Use Topics Alcohol use: No Drug use: No (Not in a hospital admission) Current Facility-Administered Medications Medication Dose Route Frequency NaCl 0.9% iv flush bag 20 mL INTRAVENOUS PRN levothyroxine 75 mcg tab(s) (SYNTHROID) 75 mcg ORAL BEFORE BREAKFAST DAILY pravastatin 80 mg tab(s) (PRAVACHOL) 80 mg ORAL AT BEDTIME carvedilol 25 mg tab(s) (COREG) 25 mg ORAL BID pantoprazole DR 40 mg tab(s) (PROTONIX) 40 mg ORAL BEFORE BREAKFAST DAILY folic acid 2 mg tab(s) 2 mg ORAL DAILY citalopram 20 mg tab(s) (CeleXA) 20 mg ORAL DAILY amLODIPine 5 mg tab(s) (NORVASC) 5 mg ORAL DAILY NaCl 0.9% iv infusion 75 mL/hr INTRAVENOUS CONTINUOUS ondansetron 4 mg tab(s) (ZOFRAN) 4 mg ORAL q 6 H PRN Or ondansetron (PF) 4 mg injection (ZOFRAN) 4 mg INTRAVENOUS q 6 H PRN acetaminophen 1,000 mg tab(s) (TYLENOL) 1,000 mg ORAL QID dextrose 15 gram/32 mL 15 g (TRUEPLUS) 15 g ORAL PRN Or glucagon 1 mg injection 1 mg INTRAMUSCULAR PRN Or dextrose 10% iv bolus 12.5 g INTRAVENOUS PRN insulin lispro injection (rapid acting) (ADMElog) SUBCUTANEOUS q 6 H oxyCODONE IR 2.5-5 mg tab(s) (ROXICODONE) 2.5-5 mg ORAL q 6 H PRN Allergies As of Date: 02/06/2023 Allergen Noted Reaction ACCUPRIL [QUINAPRIL HCL] 12/24/2004 Cough SULFA (SULFONAMIDE ANTIBIOTICS) 12/24/2004 Hives ATORVASTATIN 01/09/2016 Myalgia BENZONATATE 01/09/2016 Hives GABAPENTIN 01/14/2018 Other: See Comments SIMVASTATIN 01/09/2016 Other: See Comments Fully Assessed 02/06/2023 COMPLETE REVIEW OF SYSTEMS: GENERAL: No weight loss, malaise or fevers. HEENT: Negative for frequent or significant headaches, No changes in hearing or vision, no nose bleeds or other nasal problems. NECK: Negative for lumps, goiter, pain and significant neck swelling. RESPIRATORY: Negative for cough, hemoptysis, wheezing, COPD, dyspnea or shortness of breath. CARDIOVASCULAR: Negative for chest pain, leg swelling, hypertension, (more content not included)... Normal [facility] CONSULT HNO ID: [id number] Author: Louise Rodriguez APRN.CAR REFINISHER Service: Neurosurgery Author Type: Nurse Practitioner Type: Consults Filed: 02/06/2023 4:05 AM Note Text: Attestation signed by Nimesh Phillips MD at 02/06/2023 6:38 AM I agree with the Note of Louise Rodriguez PRESS BOX CUSTODIAN below. I discussed the pt and the scan and plan of care with her. Pt was given DDAVP. No surgical intervention required at this time. Nimesh Phillips MD CONSULT: NEUROSURGERY SERVICE Patient Name: Neelam Ryan Date of : 1935 SERVICE DATE: 02/06/2023 SERVICE TIME: 3:54 AM REASON FOR CONSULT: SDH REQUESTING PHYSICIAN: Dr. Oliva PRIMARY CARE PHYSICIAN: Frank Fuentes MD Consultation requested by Dr. Oliva for an opinion regarding SDH. My final recommendations will be communicated back to the requesting physician by way of shared Medical record or letter to requesting physician via US mail. CHIEF COMPLAINT: fall HISTORY OF PRESENT ILLNESS : Neelam Ryan is a 87 year old female, on Eliquis and ASA, who presented as a trauma transfer from [facility] following a fall at home earlier tonight. Patient states she had fallen asleep in a chair and it was dark when she woke up. She stood from the chair and proceeded to pull the venetian blinds down, then attempted to turn the lights on, however she fell to the ground, hitting her left side on the couch and end table. She denies LOC. She reports pain down the left side of her body, R wrist and L jaw. She denies headache, dizziness, n/v, numbness, tingling or weakness. NSGY was consulted for CT findings of L falx cerebri subdural hematoma. PAST MEDICAL HISTORY Diagnosis Date Basal cell carcinoma Dr. Lambert Cholecystitis, unspecified Chronic kidney disease (CKD), stage IV (severe) (HCC) Dr. Montgomery Coronary atherosclerosis of unspecified type of vessel, tulalip or graft Dr. Davenport Depression Hammertoes of both feet Multinodular goiter 05/21/2016 Osteoarthritis Other and unspecified anemias Pure hypercholesterolemia Sciatica Swelling of lower extremity Type II or unspecified type diabetes mellitus without mention of complication, not stated as uncontrolled Podiatry-Dr. Mcgee Unspecified essential hypertension Unspecified hypothyroidism PAST SURGICAL HISTORY Procedure Laterality Date COLONOSCOPY FLX DX W/COLLJ SPEC WHEN PFRMD 01/30/2005 Colonoscopy COLONOSCOPY FLX DX W/COLLJ SPEC WHEN PFRMD 08/05/2015 Colonoscopy ESOPHAGOGASTRODUODENOSC OPY TRANSORAL DIAGNOSTIC 01/30/2005 EGD HEART CATHETERIZATION 09/2018 angiopasty of circumflex, 75% stenosis. LAD 80%. LAPAROSCOPY SURG CHOLECYSTECTOMY 12/02/2005 Cholecystectomy, lap PAST SURGICAL HISTORY OF hernia PAST SURGICAL HISTORY OF carpal tunnel both hands PAST SURGICAL HISTORY OF fingers different times PAST SURGICAL HISTORY OF trigger finger PAST SURGICAL HISTORY OF 06/21/2006 heart cath with stent placement [facility] PAST SURGICAL HISTORY OF 04/24/2008 vaginal hysterectomy, bladder suspension, rectocele PAST SURGICAL HISTORY OF 11/20/11 cardiac cath; percutaneous transluminal coronary angioplasty with stent @ [facility] PAST SURGICAL HISTORY OF left wrist surgery TOTAL THYROID LOBECTOMY UNI W/WO ISTHMUSECTOMY Right 05/21/2016 TRANSCATH STENT INIT VESSEL,PERCUT 08/18 Transcath stent init vessel percut LAD [facility] FAMILY HISTORY Problem Relation Age of Onset Diabetes Mother CAD, ANGIOPLASTY Diabetes Father DC other (DC) Brother other (OHS) Sister other (DC) Brother Heart Sister diabetic Heart Sister Heart Sister diabetic Heart Sister diabetic ALLERGIES Allergen Reactions Accupril [Quinapril* Cough Sulfa (Sulfonamide * Hives Atorvastatin Myalgia Benzonatate Hives Gabapentin Other: See Comments fatigue Simvastatin Other: See Comments Current Facility-Administered Medications Medication Dose Route Frequency Provider Last Rate Last Admin NaCl 0.9% iv flush bag 20 mL INTRAVENOUS PRN David Daigle DO levothyroxine 75 mcg tab(s) (SYNTHROID) 75 mcg ORAL BEFORE BREAKFAST DAILY Keily Murphy DO pravastatin 80 mg tab(s) (PRAVACHOL) 80 mg ORAL AT BEDTIME Keily Murphy DO carvedilol 25 mg tab(s) (COREG) 25 mg ORAL BID Keily Murphy DO pantoprazole DR 40 mg tab(s) (PROTONIX) 40 mg ORAL BEFORE BREAKFAST DAILY Keily Murphy DO folic acid 2 mg tab(s) 2 mg ORAL DAILY Keily Murphy DO citalopram 20 mg tab(s) (CeleXA) 20 mg ORAL DAILY Keily Murphy DO amLODIPine 5 mg tab(s) (NORVASC) 5 mg ORAL DAILY Keily Murphy DO NaCl 0.9% iv infusion 75 mL/hr INTRAVENOUS CONTINUOUS Keily Murphy DO ondansetron 4 mg tab(s) (ZOFRAN) 4 mg ORAL q 6 H PRN Keily Murphy DO Or ondansetron (PF) 4 mg injection (ZOFRAN) 4 mg INTRAVENO (more content not included)... Normal [facility] CT BRAIN WO IVCONon 02-07-[address] BRAIN WO IVCON * * *Final Report* * * DATE OF EXAM: Feb 06 2023 12:57PM [facility] 0504 - CT BRAIN WO IVCON / PROCEDURE REASON: Subdural hematoma * * * * Physician Interpretation * * * * EXAMINATION: CT BRAIN WO IVCON CLINICAL HISTORY: Subdural hematoma TECHNIQUE: Serial axial images without IV contrast were obtained from the vertex to the foramen magnum. MQ: CTBWO_3 CT Radiation dose: Integrated Dose-Length Product (DLP) for this visit = 720 mGy*cm CT Dose Reduction Employed: Iterative recon COMPARISON: 02/06/2023 5:02 AM RESULT: Belt Maker (topogram) images: No additional findings. Post-operative change: None. Acute change: No evidence of an acute infarct or other acute parenchymal process. Hemorrhage: Stable morphology and attenuation of hyperattenuating LEFT parafalcine subdural hematoma measuring up to 8 mm in greatest thickness. No evidence of new acute intracranial hemorrhage. ECASS hemorrhagic transformation score: Not Applicable Mass Lesion / Mass Effect: There is no evidence of an intracranial mass. Minimal mass effect on the adjacent LEFT paramedian frontal lobe by parafalcine subdural hematoma, similar to prior. No midline shift or herniation. Chronic change: Few scattered foci of low attenuation are present within supratentorial white matter which is a nonspecific finding but likely represents minimal microvascular ischemia. Atherosclerotic calcifications involving the bilateral carotid siphons. Parenchyma: There is no significant volume loss. Ventricles: The ventricles are within normal limits of size and configuration for age. Paranasal sinuses and skull base: The visualized paranasal sinuses are grossly clear. The skull base and imaged soft tissues are unremarkable. IMPRESSION: Stable appearance of the head from 02/06/2023 5:02 AM including unchanged LEFT parafalcine subdural hematoma without significant mass effect. Price Analyst: PSCB Transcribe Date/Time: Feb 06 2023 1:14P Dictated by : SHARIFA CHAIDEZ MD This examination was interpreted and the report reviewed and electronically signed by: SHARIFA CHAIDEZ MD on Feb 06 2023 1:19PM EST [id number] Normal [facility] CT BRAIN WO IVCON * * *Final Report* * * DATE OF EXAM: Feb 06 2023 5:10AM [facility] 0504 - CT BRAIN WO IVCON / PROCEDURE REASON: Subdural hematoma * * * * Physician Interpretation * * * * EXAMINATION: CT BRAIN WO IVCON CLINICAL HISTORY: Follow-up subdural hematoma. TECHNIQUE: Serial axial images without IV contrast were obtained from the vertex to the foramen magnum. MQ: CTBWO_3 CT Radiation dose: Integrated Dose-Length Product (DLP) for this visit = 1076 mGy*cm CT Dose Reduction Employed: Iterative recon COMPARISON: Outside head CT 02/06/2023. 08:37 hours. RESULT: Post-operative change: None. Acute change: No evidence of an acute infarct or other acute parenchymal process. Hemorrhage: Minimally increased in size hyperdense left parafalcine subdural hematoma which measures up to approximately 7-8 mm in maximum thickness. Of the hematoma is not significant changed in maximum thickness the anterior-posterior extent of the hematoma has increased. Mass Lesion / Mass Effect: There is no evidence of an intracranial mass or extraaxial fluid collection. Parafalcine subdural hematoma exerts only mild mass effect on the adjacent left paramedian frontal lobe. No midline shift or herniation. Chronic change: A few scattered hypodensities in the supratentorial white matter are nonspecific but are most compatible with mild chronic microvascular ischemic changes. Calcified atherosclerosis in the carotid siphons in the partially imaged extracranial segment of the left internal carotid artery below the skull base. Parenchyma: There is no significant volume loss. Ventricles: The ventricles are within normal limits of size and configuration for age. Scalp and calvarium: No fracture or lytic or blastic lesion. No soft tissue abnormality. Paranasal sinuses and skull base: The skull base is intact. Paranasal sinuses, middle ear cavities and mastoid air cells are grossly clear. IMPRESSION: Increased in size left parafalcine subdural hematoma without significant mass effect when compared to the prior head CT of 02/05/2023 at 8:37 PM. Continued short-term follow-up head CT is recommended to document stability. COMMUNICATION: Communicated with Dr. Daigle on 02/06/2023 at 05:18 hours via telephone by Dr. German. Price Analyst: ILAN Transcribe Date/Time: Feb 06 2023 5:11A Dictated by : SARAH GERMAN MD This examination was interpreted and the report reviewed and electronically signed by: SARAH GERMAN MD on Feb 06 2023 5:25AM EST [id number] Normal [facility] ECHOon 02-06-2023 Echocardiography Echocardiography Report: Transthoracic Echo [facility] Date of service: 02/06/2023 8:02:22 AM [facility] Ordering physician: KARLIE BEATTY Indication: Re-evaluation of known heart failure with a change in clinical status without change in med/diet Technologist: Chantelle Roberts [facility] Interpreting physician: Luz Marina Mc MD PATIENT: Name: MS. NEELAM RYAN : 1935 Age: 87 years Gender: F Primary rhythm: sinus. Height: 149.90 cm BSA: 1.74 m Weight: 72.58 kg BMI: 32.3 kg/m Heart rate 92 bpm Blood pressure 105/81 mmHg Technically difficult exam due to body habitus. Color Doppler was utilized to interrogate the cardiac valves assessed and spectral Doppler was utilized to determine the flow velocities and pressure gradients reported in this exam. MEASUREMENTS: Value Indexed Normal Max aortic dimension 2.8 cm Ao < 3.8 Left atrial volume 67 ml (biplane A-L) 38 ml/m Mark <= 34 LV ID (diastole) 3.5 cm (2D) 2.00 cm/m LV ID (systole) 2.0 cm (2D) 1.13 cm/m IVS, leaflet tips 1.0 cm (2D) Posterior wall thickness 0.9 cm (2D) Left ventricular mass 95 g (2D) 54 g/m LV stroke volume 37 ml (2D biplane) LV end diastolic volume 65 ml (2D biplane) 37.6 ml/m 29<=EDVi<62 LV end systolic volume 28 ml (2D biplane) 16.1 ml/m Ejection Fraction 57 % (2D biplane) EF > 54 FINDINGS: LEFT VENTRICLE The left ventricle is normal in size. There is no left ventricular hypertrophy. Left ventricular systolic function is normal globally. Grade I left ventricular diastolic dysfunction. Mitral annular lateral E/e': 10.8. Mitral annular septal E/e': 17.0. Definity contrast used for endocardial border detection. Wall Motion: The anterolateral wall is mildly hypokinetic. All remaining scored segments are normal. RIGHT VENTRICLE The right ventricle is normal in size. Right ventricular systolic function is normal. RV systolic tissue Doppler velocity is 12.0 cm/s. Estimated right ventricular systolic pressure is 61 mmHg consistent with moderate pulmonary hypertension. Estimated right atrial pressure is 3 mmHg based on IVC assessment. LEFT ATRIUM The left atrial cavity is mildly dilated. RIGHT ATRIUM The right atrial cavity is normal in size. Inferior Vena Cava: The inferior vena cava appears normal measuring 1.5 cm. The vessel decreases greater than 50 percent with inspiration. MITRAL VALVE There is moderate mitral annular calcification observed posterior. There is trace mitral valve regurgitation. There is mild thickening. There is mild calcification. The pressure half time is 51 msec. The peak mitral E/A ratio is 0.95. The average mitral E/e' ratio is 13.9. The mitral flow deceleration time is 178 msec. TRICUSPID VALVE The tricuspid valve leaflets are structurally normal. There is mild (1+) tricuspid valve regurgitation. AORTIC VALVE The aortic valve cusps are structurally normal. There is no aortic valve regurgitation. Tricuspid aortic valve. PULMONIC VALVE The pulmonic valve cusps are structurally normal. There is no pulmonic valve regurgitation. AORTA The visualized aorta is normal in size. Measurements - Sinus: 2.8 cm. INTERATRIAL SEPTUM There is no evidence of intracardiac shunting as detected by Doppler. PERICARDIUM There is no pericardial effusion. CONCLUSIONS: - Technically difficult exam due to body habitus. - Exam indication: Re-evaluation of known heart failure with a change in clinical status without change in med/diet - There is a resting wall motion abnormality in the territory of the LCX. - The left ventricle is normal in size. There is no left ventricular hypertrophy. Left ventricular systolic function is normal. EF = 57 5% (2D biplane) Definity contrast used for endocardial border detection. Grade I left ventricular diastolic dysfunction. - The right ventricle is normal in size. Right ventricular systolic function is normal. - The left atrial cavity is mildly dilated. - Estimated right ventricular systolic pressure is 61 mmHg consistent with moderate pulmonary hypertension. Estimated right atrial pressure is 3 mmHg based on IVC assessment. - The patient has not had a prior CC echocardiographic exam for comparison. * * * Final * * * [facility] [employer] [facility] : [id number] [facility] ED NOTEon 02-06-2023 ED NOTE HNO ID: [id number] Author: Molly Wharton, MARIVEL Service: Emergency Medicine Author Type: Registered Nurse Type: ED Notes Filed: 02/06/2023 6:09 AM Note Text: Report called to MICU RN [facility] ED NOTE HNO ID: [id number] Author: Cristina Villareal, MARIVEL Service: ? Author Type: Registered Nurse Type: ED Notes Filed: 02/06/2023 4:12 AM Note Text: CT notified [facility] ED NOTE HNO ID: [id number] Author: Veronica Long, MARIVEL Service: ? Author Type: Registered Nurse Type: ED Notes Filed: 02/06/2023 3:50 AM Note Text: Physician notified that pt needs US IV [facility] ED NOTE HNO ID: [id number] Author: Saray Lux MARIVEL Service: ? Author Type: Registered Nurse Type: ED Notes Filed: 02/06/2023 1:19 AM Note Text: Bed: 06-ED Expected date: Expected time: Means of arrival: Comments: SDH [facility] ED PROV NOTEon 02-06-2023 ED PROV NOTE HNO ID: [id number] Author: Karlie Beatty MD Service: Emergency Medicine Author Type: Physician Type: ED Provider Notes Filed: 02/07/2023 3:03 AM Note Text: ED Provider Note Patient Name: Neelam Ryan : 1935 SERVICE DATE: 02/06/23 History Patient presents with: Functional Transfers: Pt arrived via EMS from [place] d/t fall at home. States she hit head on end table; +SDH. Bruising/Swelling noted on R hand from fall as well. AANDOx3. Pt has no complaints at this time. HPI The patient is an 87-year-old female that presents today from [facility] as a trauma transfer after a fall found to have a subdural hematoma. She has a past medical history of coronary artery disease on Plavix and aspirin. Currently, she is asymptomatic. She denies any pain anywhere, chest pain, shortness of breath, dizziness, vision changes, numbness or tingling. I reviewed her ED visit from [facility]. CT of the brain showed a small subdural hematoma localized to the left side of the falx cerebri approximately 8 mm in thickness without any mass effect. CT of the cervical spine did not show any abnormality. She did not get any reversal for her Plavix. X-ray of the right wrist showed diffuse soft tissue swelling with no fracture. Pelvic x-ray did not show any pelvic fracture. PAST MEDICAL HISTORY Diagnosis Date Basal cell carcinoma Dr. Lambert Cholecystitis, unspecified Chronic kidney disease (CKD), stage IV (severe) (HCC) Dr. Montgomery Coronary atherosclerosis of unspecified type of vessel, tulalip or graft Dr. Issac Hernandes of both feet Multinodular goiter 05/21/2016 Osteoarthritis Other and unspecified anemias Pure hypercholesterolemia Sciatica Swelling of lower extremity Type II or unspecified type diabetes mellitus without mention of complication, not stated as uncontrolled Podiatry-Dr. Testrake Unspecified essential hypertension Unspecified hypothyroidism PAST SURGICAL HISTORY Procedure Laterality Date COLONOSCOPY FLX DX W/COLLJ SPEC WHEN PFRMD 01/30/2005 Colonoscopy COLONOSCOPY FLX DX W/COLLJ SPEC WHEN PFRMD 08/05/2015 Colonoscopy ESOPHAGOGASTRODUODENOSC OPY TRANSORAL DIAGNOSTIC 01/30/2005 EGD HEART CATHETERIZATION 09/2018 angiopasty of circumflex, 75% stenosis. LAD 80%. LAPAROSCOPY SURG CHOLECYSTECTOMY 12/02/2005 Cholecystectomy, lap PAST SURGICAL HISTORY OF hernia PAST SURGICAL HISTORY OF carpal tunnel both hands PAST SURGICAL HISTORY OF fingers different times PAST SURGICAL HISTORY OF trigger finger PAST SURGICAL HISTORY OF 06/21/2006 heart cath with stent placement [facility] PAST SURGICAL HISTORY OF 04/24/2008 vaginal hysterectomy, bladder suspension, rectocele PAST SURGICAL HISTORY OF 11/20/11 cardiac cath; percutaneous transluminal coronary angioplasty with stent @ [facility] PAST SURGICAL HISTORY OF left wrist surgery TOTAL THYROID LOBECTOMY UNI W/WO ISTHMUSECTOMY Right 05/21/2016 TRANSCATH STENT INIT VESSEL,PERCUT 08/18 Transcath stent init vessel percut LAD [facility] FAMILY HISTORY Problem Relation Age of Onset Diabetes Mother CAD, ANGIOPLASTY Diabetes Father DC other (DC) Brother other (OHS) Sister other (DC) Brother Heart Sister diabetic Heart Sister Heart Sister diabetic Heart Sister diabetic Social History Tobacco Use Smoking status: Never Smokeless tobacco: Never Vaping Use Vaping Use: Never used Substance and Sexual Activity Alcohol use: No Drug use: No Sexual activity: Not Currently ALLERGIES Allergen Reactions Accupril [Quinapril* Cough Sulfa (Sulfonamide * Hives Atorvastatin Myalgia Benzonatate Hives Gabapentin Other: See Comments fatigue Simvastatin Other: See Comments Review of Systems Reason unable to perform ROS: See HPI. Physical Exam Vitals BP Pulse Temp Temp src Resp SpO2 Weight Height 02/06/23 0124 02/06/23 0124 02/06/23 0124 02/06/23 0124 02/06/23 0124 02/06/23 0124 02/06/23 0124 02/06/23 0630 165/77 80 36.9 ?C (98.4 ?F) Oral 16 98 % 72.6 kg (160 lb) 1.499 m (4' 11) Physical Exam Vitals reviewed. Constitutional: General: She is not in acute distress. Appearance: Normal appearance. She is not ill-appearing. HENT: Right Ear: External ear normal. Left Ear: External ear normal. Nose: Nose normal. Mouth/Throat: Mouth: Mucous membranes are moist. Pharynx: Oropharynx is clear. Eyes: General: No scleral icterus. Conjunctiva/sclera: Conjunctivae normal. Pupils: Pupils are equal, round, and reactive to light. Cardiovascular: Rate and Rhythm: Normal rate and regular rhythm. Pulses: Normal pulses. Heart sounds: Normal heart sounds. No murmur heard. No friction rub. No gallop. Pulmonary: Effort: Pulmonary effort is normal. No respiratory distress. Breath sounds: Normal breath sounds. No stridor. No wheezing or rales. Abdominal: General: Abdomen is flat. Bowel soun (more content not included)... [facility] HISTORY PHYSICALon HISTORY PHYSICAL HNO ID: [id number] Author: Keily Murphy DO Service: General Surgery Author Type: Resident Type: HANDP Filed: 02/06/2023 3:33 AM Note Text: Attestation signed by Vimal Brice MD at 02/07/2023 12:41 PM I personally saw and examined the patient on 02/06/23. I reviewed the resident's note. I agree with the resident's assessment and plan unless otherwise noted. Vimal Brice MD TRAUMA [facility] ARRIVAL DATE: 02/06/2023 ARRIVAL TIME: 3:18 AM INJURY DATE: 02/05/2023 INJURY TIME: 6PM Subjective 87 year old female with PMH CKD stage IV, OA, depression, CAD s/p heart cath, T2DM, HTN, hypothyroidism, sciatica, HLD, lap barbara, hernia repair presents to the ED as transfer from [place] after GLF. Patient states she was in her room when she tripped and fell, striking the back of her head on the end table and landing onto a cough. She denies any LOC. She does admit to taking plavix, last taken 02/05 around noon. GCS at Scene was 15. On exam, patient is HDS and neurologically intact. She admits to headache. HPI/CHIEF COMPLAINT: OTHER MECHANISMS: Fall-Same Level BRIEF DESCRIPTION OF INJURIES: SDH of left falx cerebrum LAST FLUIDS/MEAL: Prior to arrival CODE STATUS: Discussed with patient- DNR-CCA ALLERGIES Allergen Reactions Accupril [Quinapril* Cough Sulfa (Sulfonamide * Hives Atorvastatin Myalgia Benzonatate Hives Gabapentin Other: See Comments fatigue Simvastatin Other: See Comments (Not in a hospital admission) DATE OF LAST TETANUS: below Immunization History Administered Date(s) Administered COVID-19 original vaccine, age 12+ yr, monovalent (PFIZER-BIONTECH - [place] TOP) 06/27/2021 COVID-19 original vaccine, age 12+ yr, monovalent (PFIZER-BIONTECH - PURPLE TOP) 04/10/2020 05/01/2020 12/24/2020 COVID-19 vaccine, age 12+ yr, 2022- season (PFIZER-BIONTECH) 12/22/2022 COVID-19 vaccine, age 12+ yr, bivalent (PFIZER-BIONTECH) 12/19/2021 TD Adult 12/29/2005 diphtheria tetanus (DT) vaccine, pediatric 08/20/1997 influenza (HD-IIV3) vaccine, age 65+ yr, high dose, PF (FLUZONE HIGH-DOSE) 12/10/2017 12/08/2018 influenza (HD-IIV4) vaccine, age 65+ yr, high dose, quadrivalent, PF (FLUZONE HIGH-DOSE) 12/07/2019 12/12/2020 12/19/2021 12/22/2022 influenza (IIV3) vaccine, age 3+ yr, trivalent (AFLURIA, FLULAVAL, FLUVIRIN, FLUZONE) 12/12/2013 12/12/2014 influenza (IIV3) vaccine, trivalent, PF (AFLURIA, FLUARIX, FLULAVAL, FLUVIRIN, FLUZONE) 11/14/2015 influenza (IIV4) vaccine, age 6 mo - 64 yr, quadrivalent, PF (AFLURIA, FLUARIX, FLULAVAL, FLUZONE) 12/10/2017 influenza vaccine, unspecified formulation 01/08/2005 12/21/2007 12/16/2011 12/27/2012 pneumococcal (PCV13) vaccine, 13 valent (PREVNAR 13) 08/30/2014 pneumococcal (PPV23) vaccine, 23 valent (PNEUMOVAX 23) 01/08/2005 tetanus diphtheria (Td) vaccine, adult, non-adsorbed 01/23/2008 tetanus diphtheria pertussis (Tdap) vaccine, age 7+ yr (ADACEL, BOOSTRIX) 06/22/2022 PAST MEDICAL HISTORY Diagnosis Date Basal cell carcinoma Dr. Lambert Cholecystitis, unspecified Chronic kidney disease (CKD), stage IV (severe) (HCC) Dr. Montgomery Coronary atherosclerosis of unspecified type of vessel, tulalip or graft Dr. Issac Pulliam Hammertoes of both feet Multinodular goiter 05/21/2016 Osteoarthritis Other and unspecified anemias Pure hypercholesterolemia Sciatica Swelling of lower extremity Type II or unspecified type diabetes mellitus without mention of complication, not stated as uncontrolled Podiatry-Dr. Mcgee Unspecified essential hypertension Unspecified hypothyroidism PAST SURGICAL HISTORY Procedure Laterality Date COLONOSCOPY FLX DX W/COLLJ SPEC WHEN PFRMD 01/30/2005 Colonoscopy COLONOSCOPY FLX DX W/COLLJ SPEC WHEN PFRMD 08/05/2015 Colonoscopy ESOPHAGOGASTRODUODENOSC OPY TRANSORAL DIAGNOSTIC 01/30/2005 EGD HEART CATHETERIZATION 09/2018 angiopasty of circumflex, 75% stenosis. LAD 80%. LAPAROSCOPY SURG CHOLECYSTECTOMY 12/02/2005 Cholecystectomy, lap PAST SURGICAL HISTORY OF hernia PAST SURGICAL HISTORY OF carpal tunnel both hands PAST SURGICAL HISTORY OF fingers different times PAST SURGICAL HISTORY OF trigger finger PAST SURGICAL HISTORY OF 06/21/2006 heart cath with stent placement [facility] PAST SURGICAL HISTORY OF 04/24/2008 vaginal hysterectomy, bladder suspension, rectocele PAST SURGICAL HISTORY OF 11/20/11 cardiac cath; percutaneous transluminal coronary angioplasty with stent @ [facility] PAST SURGICAL HISTORY OF left wrist surgery TOTAL THYROID LOBECTOMY UNI W/WO ISTHMUSECTOMY Right 05/21/2016 TRANSCATH STENT INIT VESSEL,PERCUT 08/18 Transcath stent init vessel percut LAD Tara Jaimes Social History Tobacco Use Smoking status (more content not included)... Normal [facility] MRSA Spec Ql Culton 02-07-20 MRSA isol Org specific cx Ql (Unsp spec) CULTURE, MRSA/MSSA SCREEN: Negative for Staphylococcus aureus Normal [facility] Comment on above: Performed By: #### 1 3317-3 ####[facility] [id number] [place] [id number] [facility] Magnesium SerPl-ncon 02-06 Magnesium [Mass/Vol] 1.7 mg/dL Normal 1.7-2.3 [facility] Comment on above: Order Comment: Speci men Type: BLOOD SPECIMEN Ordering Facility: [facility] Address: [address] [place] [address] Performed By: #### 1 9123-9, 2777-1, 05880-6 #### [facility] CLIA [id number] [address] [place] [address] [place] NURSING PROGon 02-06-2023 NURSING PROG HNO ID: [id number] Author: Luna Main RN Service: ? Author Type: Registered Nurse Type: Nursing Progress Note Filed: 02/06/2023 9:03 PM Note Text: Transfer Note: PATIENT NAME: Neelam Ryan Patient Location: [place] [address]/[facility] Room: [place] [address] Patient transferred out to [facility] in stable condition. Transferred into room 5210 Normal [facility] Phosphate SerPl-mCncon 02-06 Phosphate [Mass/Vol] 3.1 mg/dL Normal 2.7-4.8 [facility] Comment on above: Order Comment: Speci men Type: BLOOD SPECIMEN Ordering Facility: [facility] Address: [address] [place] [address] Performed By: #### 1 9123-9, 2777-1, 17942-4 #### [facility] [id number] [address] [place], [place] [id number] [facility] THERAPY NTon 02-06-2023 THERAPY NT HNO ID: [id number] Author: Mary Ramirez CCC-NEW CLIENT BANKING SERVICES CLERK Service: Speech/Swallow Author Type: Speech Language Pathologist Type: Therapy (PT/OT/Speech/Resp) Filed: 02/06/2023 3:50 PM Note Text: Speech Therapy Speech Evaluation, Clinical Swallow Evaluation SERVICE DATE: 02/06/2023 SERVICE TIME: 1520 to 1550 ROOM: [place] [address] IMPRESSION: Communication deficits identified: Cognitive deficits (at her baseline per patient and son) Functional oropharyngeal phases of swallowing: without identified risk for aspiration Diet Recommendations: Regular Consistency Thin Liquids IDDSI Level 0 Swallowing Precautions Recommendations: Self-monitoring Nursing Recommendations: Reinforce use of swallowing strategies, Reinforce use of cognitive strategies Recommended Discharge Disposition: No further skilled speech therapy services anticipated Current Hospital Course: 02/06 CT Brain: left parafalcine subdural hematoma without significant mass effect Reason for Hospital Admission: Transfer from [place] post fall Rehabilitation Precautions: Cognitive Linguistics Deficits, NPO Isolation Type: None NPO Precautions: (none) Reason for Speech Therapy Consult: subdural hematoma Relevant Past Medical History: depression Response to Therapy Interventions: Good Participation in activities, Receptive Family / Caregivers Subjective: Resting in bed on arrival, woke easily and agreeable to evaluation with son present Current Status Oral Hygiene: Oral Health Assessment Tool (OHAT) Dentition: Retains Natural Dentition Current Feeding Method: IV Current Diet Textures: NPO Current Level Of Communication: Verbal Current Management Of Secretions: Able to self-manage Oral Motor Exam: Within Functional Limits Oral Health Assessment Tool (OHAT) Lips: 0 Tongue: 0 Gums and Tissues: 0 Saliva: 1 Natural Teeth: 0 Dentures: N/A Oral Cleanliness: 0 Dental Pain: 0 OHAT Total Score: 1 Speech/Cognition/Langua ge Speech Production: Within Functional Limits Expressive and Receptive Language: Within Functional Limits Cognition Cognitive Status: at her baseline per patient and son Cognitive Deficits: Memory Deficits Memory Deficits: Immediate, Short Term The Cognitive Log (Cog-Log) is designed to be a quick quantitative measure of cognition status for use at the bedside with rehabilitation inpatients. It is intended for individuals who have achieved consistent accurate orientation, such as measured by the Orientation Log (O-Log). The Cog-Log can be used to document cognitive progress on a daily basis. All items are scored from 0 to 3 for a total possible score of 30. 3 = correct spontaneous response 2 = correct upon logical cueing (e.g., That was yesterday, so today must be...) 1 = correct upon multiple choice or phonemic cueing 0 = incorrect despite cueing, inappropriate response, or unable to respond Stimulus Response/Score Date 05/15 Time 05/15 Name of Hospital 04/17 Repeat Address (all partial responses) 20-1 05/15 Months Reversed 05/15 30 Seconds 05/15 Ihwg-Dkve-Jtse 05/15 Go/No-Go 04/17 Address Recall 03/17 Total Swallow Assessment Position Of Patient During Assessment: Upright In Bed Consistencies Presented: Thin Liquids IDDSI Level 0, Solid Compensatory Strategies Utilized During Assessment: Self-monitoring Clinical Swallow Assessment Oral Pharyngeal Swallow Assessment: Within Functional Limits -Patient up in bed on NEW CLIENT BANKING SERVICES CLERK arrival, agreeable to evaluation with son present -Able to feed self -Mastication timely for solids -No oral residuals post swallow -Laryngeal movement detected upon palpation of swallow -No cough, throat clear, or change in vocal quality with po trials -Completed 3 oz water challenge with no cough, throat clear, or change in vocal quality -Oropharyngeal swallow function appears clinically WFL at this time -Recommend diet and strategies as above -Cannot rule out aspiration with clinical assessment only, if further concern, recommend instrumental assessment -Will sign off, please re-consult if change in Patient status Patient /Caregiver Goals: Go Home PLAN: ST Frequency: Discontinue Therapy Services Reasons Inpatient Therapy Services Discontinued: No skilled needs Plan of Care Developed with: Patient, Family Results and Recommendations Discussed With: Patient, Family, Nurse TREATMENT INTERVENTIONS: Therapy Diagnosis: No Skilled Need Interventions Provided: Clinical Swallow Evaluation (52061), Speech Language Eval (61992) $ Speech Language Eval (96437) Billed Units: 1 unit $ Clinical Swallow Evaluation (61913) Billed Units: 1 unit Training and education provided in: Dietary Consistencies, Dysphagia Management, Swallowing Strategies The following therapeutic skills were used:: Discharge planning, Education on role of discipline / importance of activity Skilled Treatment Time (minutes): 30 Home Environment Prior Fun (more content not included)... Normal [facility] XR CHEST 1V FRONTALon 2022 XR CHEST 1V FRONTAL * * *Final Report* * * DATE OF EXAM: Feb 06 2023 12:47PM AKX [id number] - XR CHEST 1V FRONTAL / PROCEDURE REASON: Shortness of breath * * * * Physician Interpretation * * * * EXAMINATION: CHEST RADIOGRAPH (SINGLE VIEW AP OR PA) CLINICAL HISTORY: Shortness of breath MQ: XC1_5 Comparison: 04/21/2018 RESULT: Lines, tubes, and devices: None. Lungs and pleura: Diffuse interstitial infiltrate or edema. Cardiomediastinal silhouette: Normal cardiomediastinal silhouette. Other: . IMPRESSION: No acute radiographic abnormality. Diffuse pulmonary interstitial infiltrate or edema. Price Analyst: ILAN Transcribe Date/Time: Feb 06 2023 1:34P Dictated by : ANGEL DRISCOLL MD This examination was interpreted and the report reviewed and electronically signed by: ANGEL DRISCOLL MD on Feb 06 2023 1:35PM EST [id number] Normal [facility] Basophil percentageOrdered B y: Kyle Culver on 01-31-2023 Chloride [Moles/Vol] 99 mmol/L 98-107 [facility] Glucose [Mass/Vol] 179 mg/dL 74-106 [facility] Comment on above: Fasting Glucose resu lt greater than or equal to 126 mg/dL suggests DIABETES MELLITUS per A.D.A. criteria. Potassium [Moles/Vol] 3.6 mmol/L 3.5-5.1 [facility] Sodium [Moles/Vol] 134 mmol/L 136-145 [facility] Glucose Glucometer (BldC) [M ass/Vol]Ordered By: Kyle Culver on 01-31-2023 Glucose [Mass/Vol] 231 mg/dL 74-106 [facility] Comment on above: MANAGEMENT OF PATIEN T CARE PER NURSING PROTOCOL Laboratory - Chemistry and C hemistry - challengeOrdered By: Kyle Culver on 01-31-2023 CO2 [Moles/Vol] 27.0 mmol/L 21.0-32.0 [facility] Urea nitrogen/Creatinine [Mass ratio] 39.1 mg/mg 10-20 [facility] No Panel InformationOrdered By: Kyle Culver on 01-31-2023 Estimated Creatinine Clearance Calc 29.22 ml/min [facility] Estimated GFR (MDRD) Amer 40 mL/min >60 [facility] Comment on above: GFR Calc Estimated GFR (MDRD) Non-Af Amer 33 mL/min >60 [facility] Comment on above: Non- GFR Calc Serum or plasma calcium rajesh urement (mass/volume)Ordered By: Kyle Culver on 01-31-2023 Calcium [Mass/Vol] 9.5 mg/dL 8.5-10.1 [facility] Serum or plasma creatinine m easurement (mass/volume)Ordered By: Kyle Culver on 01-31-2023 Creatinine [Mass/Vol] 1.56 mg/dL 0.55-1.02 [facility] Comment on above: The validity of the calculated GFR & GFRAA in patients over 70 years has not been determined. Clinical correlation is essential. Serum or plasma urea nitroge n measurement (mass/volume)Ordered By: Kyle Culver on 01-31-2023 Urea nitrogen [Mass/Vol] 61 mg/dL 7-18 [facility] Thin prep Papanicolaou smear with manual screeningOrdered By: Kyle Culver on 01-31-2023 Thin prep Papanicolaou smear with manual screening 8 5-15 [facility] Basophil percentageOrdered B y: Kyle Culver on 01-30-2023 WBC (Bld) [#/Vol] 11.0 10*3/uL 4.4-11.0 [facility] Blood erythrocytes count (nu mber/volume)Ordered By: Kyle Culver on 01-30-2023 RBC (Bld) [#/Vol] 2.54 10*6/uL 4.2-5.4 [facility] Blood hemoglobin measurement (mass/volume)Ordered By: Kyle Culver on 01-30-2023 Hemoglobin (Bld) [Mass/Vol] 9.3 g/dL 12.0-15.0 [facility] Blood platelet mean volumeOr dered By: Kyle Culver on 01-30-2023 Platelet mean volume (Bld) [Entitic vol] 9.5 fL 6.2-12.0 [facility] Determination of erythrocyte mean corpuscular volume (MCV)Ordered By: Kyle Culver on 01-30-2023 MCV (RBC) [Entitic vol] 112.2 fL 81-99 [facility] Hematocrit Auto (Bld) [Volum e fraction]Ordered By: Kyle Culver on 01-30-2023 Hematocrit (Bld) [Volume fraction] 28.5 % 37-47 [facility] Laboratory - Hematology and Cell countsOrdered By: Kyle Culver on 01-30-2023 Erythrocyte distribution width (RBC) [Entitic vol] 64.4 fL 35.1-43.9 [facility] Erythrocyte distribution width (RBC) [Ratio] 15.6 % 11.6-14.6 [facility] MCH (RBC) [Entitic mass] 36.6 pg 27.0-32.0 [facility] MCHC Auto (RBC) [Mass/Vol]Or dered By: Kyle Culver on 01-30-2023 MCHC (RBC) [Mass/Vol] 32.6 g/dL 32-36 [facility] Platelets bldOrdered By: Regina Culver on 01-30-2023 Platelets (Bld) [#/Vol] 446 10*3/uL 150-450 [facility] Absolute lymphocyte countOrd ered By: Joceline Montgomery on 01-29-2023 Lymphocytes Auto (Unsp spec) [#/Vol] 1.57 10*3/uL 0.83-4.51 [facility] Basophil percentageOrdered B y: Joceline Montgomery on 01-29-2023 Basophil percentage 3.6 mg/dL 2.5-4.9 [facility] Basophils/100 WBC (Bld) 0.3 % 0-1 [facility] Bilirubin [Mass/Vol] 0.60 mg/dL 0.20-1.00 [facility] Comment on above: For patients on eltr ombopag therapy, use of Dimension [place] TBIL is not recommended. Eosinophils/100 WBC (Bld) 4.3 % 0-5 [facility] Neutrophils (Bld) [#/Vol] 9.8 10*3/uL 2.0-7.7 [facility] Neutrophils/100 WBC (Bld) 75.4 % 47-70 [facility] Protein [Mass/Vol] 6.5 g/dL 6.4-8.2 [facility] Blood lymphocytes/100 leukoc ytesOrdered By: Joceline Montgomery on 01-29-2023 Lymphocytes/100 WBC (Bld) 12.1 % 19-41 [facility] Blood monocytes/100 leukocyt esOrdered By: Joceline Montgomery on 01-29-2023 Monocytes/100 WBC (Bld) 7.1 % 0-10 [facility] Laboratory - Chemistry and C hemistry - challengeOrdered By: Joceline Montgomery on 01-29-2023 ALP [Catalytic activity/Vol] 81 U/L 45-117 [facility] ALT [Catalytic activity/Vol] 10 U/L 13-56 [facility] Globulin (S) [Mass/Vol] 3.4 g/dL 2.2-4.2 [facility] Magnesium [Mass/Vol] 1.7 mg/dL 1.6-2.6 [facility] Laboratory - Hematology and Cell countsOrdered By: Joceline Montgomery on 01-29-2023 Immature granulocytes/100 WBC (Bld) 0.800 % 0.0-0.9 [facility] Comment on above: IG% - Immature Granu locytes (promyelocytes, myelocytes and metamyelocytes) > 1% indicates that a LEFT SHIFT is Present. Nucleated RBC/100 WBC (Bld) [Ratio] 0.8 % 0-5 [facility] No Panel InformationOrdered By: Kyle Culver on 01-29-2023 Vitamin B12 Level > 2000 pg/mL 211-911 [facility] No Panel InformationOrdered By: Joceline Montgomery on 01-29-2023 Thyroid Stimulating Hormone (TSH) 1.19 uIU/mL 0.358-3.74 [facility] Troponin I High Sensitivity 14 pg/mL 3.0-54.0 [facility] Comment on above: Please Note: New Flores t Units and Gender Specific Reference Ranges. For more information see Policy Stat Procedure [place] High Sensitivity Troponin (TNIH) and attachments. Serum or plasma albumin rajesh urement (mass/volume)Ordered By: Joceline Montgomery on 01-29-2023 Albumin [Mass/Vol] 3.1 g/dL 3.2-5.0 [facility] Serum or plasma albumin/glob ulin mass ratioOrdered By: Joceline Montgomery on 01-29-2023 Albumin/Globulin [Mass ratio] 0.9 {ratio} 0.9-2.4 [facility] Serum or plasma folate measu rement (mass/volume)Ordered By: Kyle Culver on 01-29-2023 Folate [Mass/Vol] 99.40 ng/mL 3.1-55.4 [facility] Thin prep Papanicolaou smear with manual screeningOrdered By: Joceline Montgomery on 01-29-2023 Thin prep Papanicolaou smear with manual screening 5 U/L 15-37 [facility] Absolute lymphocyte countOrd ered By: Vimal Bang on 01-28-2023 Lymphocytes Auto (Unsp spec) [#/Vol] 1.68 10*3/uL 0.83-4.51 [facility] Basophil percentageOrdered B y: Vimal Bang on 01-28-2023 Basophil percentage 10-25 SEEN /hpf 0-5 [facility] Basophils/100 WBC (Bld) 0.5 % 0-1 [facility] Chloride [Moles/Vol] 100 mmol/L 98-107 [facility] Eosinophils/100 WBC (Bld) 4.7 % 0-5 [facility] Glucose [Mass/Vol] 146 mg/dL 74-106 [facility] Comment on above: Fasting Glucose resu lt greater than or equal to 126 mg/dL suggests DIABETES MELLITUS per A.D.A. criteria. Neutrophils (Bld) [#/Vol] 11.8 10*3/uL 2.0-7.7 [facility] Neutrophils/100 WBC (Bld) 76.0 % 47-70 [facility] Potassium [Moles/Vol] 4.0 mmol/L 3.5-5.1 [facility] Sodium [Moles/Vol] 135 mmol/L 136-145 [facility] WBC (Bld) [#/Vol] 15.5 10*3/uL 4.4-11.0 [facility] Bilirubin Test strip Ql (U)O rdered By: Vimal Bang on 01-28-2023 Bilirubin Ql (U) Negative Negative [facility] Blood erythrocytes count (nu mber/volume)Ordered By: Vimal Bang on 01-28-2023 RBC (Bld) [#/Vol] 2.37 10*6/uL 4.2-5.4 [facility] Blood hemoglobin measurement (mass/volume)Ordered By: Vimal Bang on 01-28-2023 Hemoglobin (Bld) [Mass/Vol] 8.9 g/dL 12.0-15.0 [facility] Blood lymphocytes/100 leukoc ytesOrdered By: Vimal Bang on 01-28-2023 Lymphocytes/100 WBC (Bld) 10.9 % 19-41 [facility] Blood monocytes/100 leukocyt esOrdered By: Vimal Bang on 01-28-2023 Monocytes/100 WBC (Bld) 7.3 % 0-10 [facility] Blood platelet mean volumeOr dered By: Vimal Bang on 01-28-2023 Platelet mean volume (Bld) [Entitic vol] 10.0 fL 6.2-12.0 [facility] Culture, urineOrdered By: Tamra Montgomery on 01-28-2023 Bacteria identified Cx Nom (U) Presumptive E. coli [facility] Determination of erythrocyte mean corpuscular volume (MCV)Ordered By: Vimal Bang on 01-28-2023 MCV (RBC) [Entitic vol] 112.7 fL 81-99 [facility] Erythrocyte sedimentation ra teOrdered By: Joceline Montgomery on 01-28-2023 ESR (Bld) [Velocity] 34 mm/h 0-30 [facility] Hematocrit Auto (Bld) [Volum e fraction]Ordered By: Vimal Bang on 01-28-2023 Hematocrit (Bld) [Volume fraction] 26.7 % 37-47 [facility] Influenza virus A and B and SARS-CoV-2 (COVID-19) Ag panel - Upper respiratory specimOrdered By: Joceline Montgomery on 01-28-2023 SARS-CoV-2 (COVID-19) RNA JONATHAN+probe Ql (Resp) [facility] Iron measurement (mass/mass) Ordered By: Joceline Montgomery on 01-28-2023 Iron (Unsp spec) [Mass/Mass] 50 ug/dL 50-170 [facility] Ketones Test strip Ql (U)Ord ered By: Vimal Bang on 01-28-2023 Ketones Ql (U) Negative Negative [facility] Laboratory - Chemistry and C hemistry - challengeOrdered By: Vimal Bang on 01-28-2023 CO2 [Moles/Vol] 24.0 mmol/L 21.0-32.0 [facility] Natriuretic peptide B (Bld) [Mass/Vol] 454.1 pg/mL 0-100 [facility] Urea nitrogen/Creatinine [Mass ratio] 28.2 mg/mg 10-20 [facility] Laboratory - Hematology and Cell countsOrdered By: Vimal Bang on 01-28-2023 Erythrocyte distribution width (RBC) [Entitic vol] 64.5 fL 35.1-43.9 [facility] Erythrocyte distribution width (RBC) [Ratio] 16.0 % 11.6-14.6 [facility] Immature granulocytes/100 WBC (Bld) 0.600 % 0.0-0.9 [facility] Comment on above: IG% - Immature Granu locytes (promyelocytes, myelocytes and metamyelocytes) > 1% indicates that a LEFT SHIFT is Present. MCH (RBC) [Entitic mass] 37.6 pg 27.0-32.0 [facility] Nucleated RBC/100 WBC (Bld) [Ratio] 0.9 % 0-5 [facility] MCHC Auto (RBC) [Mass/Vol]Or dered By: Vimal Bang on 01-28-2023 MCHC (RBC) [Mass/Vol] 33.3 g/dL 32-36 [facility] Mucus LM Ql (Urine sed)Order ed By: Vimal Bang on 01-28-2023 Mucus Ql (Urine sed) 0 SEEN /hpf [facility] Nitrite Test strip Ql (U)Ord ered By: Vimal Bang on 01-28-2023 Nitrite Ql (U) Negative Negative [facility] No Panel InformationOrdered By: Vimal Bang on 01-28-2023 Estimated Creatinine Clearance Calc 25.49 ml/min [facility] Estimated GFR (MDRD) Amer 35 mL/min >60 [facility] Comment on above: GFR Calc Estimated GFR (MDRD) Non-Af Amer 29 mL/min >60 [facility] Comment on above: Non- GFR Calc Troponin I High Sensitivity 11 pg/mL 3.0-54.0 [facility] Comment on above: Please Note: New Flores t Units and Gender Specific Reference Ranges. For more information see Policy Stat Procedure [place] High Sensitivity Troponin (TNIH) and attachments. No Panel InformationOrdered By: Joceline Montgomery on 01-28-2023 Total Iron Binding Capacity 202 ug/dL 250-450 [facility] Platelets bldOrdered By: Claudy Bang on 01-28-2023 Platelets (Bld) [#/Vol] 402 10*3/uL 150-450 [facility] Protein Test strip Ql (U)Ord ered By: Vimal Bang on 01-28-2023 Protein Ql (U) Negative Negative [facility] Respiratory pathogens detect ion panel by molecular detection methodOrdered By: Joceline Montgomery on 01-28-2023 Respiratory pathogens DNA and RNA panel JONATHAN+probe (Resp) [facility] Serum or plasma C reactive p rotein measurement (mass/volume)Ordered By: Joceline Montgomery on 01-28-2023 CRP [Mass/Vol] 56.40 mg/L 0.0-3.0 [facility] Comment on above: C-Reactive Protein ( CRP) provides useful information for thediagnosis, therapy and monitoring of inflammatory processesand associated diseases. For the evaluation of Relative Riskfor Cardiovascular Disease, a High Sensitivity CRP (HSCRP)should be ordered. Serum or plasma calcium rajesh urement (mass/volume)Ordered By: Vimal Bang on 01-28-2023 Calcium [Mass/Vol] 9.6 mg/dL 8.5-10.1 [facility] Serum or plasma creatinine m easurement (mass/volume)Ordered By: Vimal Bang on 01-28-2023 Creatinine [Mass/Vol] 1.77 mg/dL 0.55-1.02 [facility] Comment on above: The validity of the calculated GFR & GFRAA in patients over 70 years has not been determined. Clinical correlation is essential. Serum or plasma ferritin indinaa surement (mass/volume)Ordered By: Joceline Montgomery on 01-28-2023 Ferritin [Mass/Vol] 296 ng/mL 8252 [facility] Serum or plasma iron saturat ion measurement (mass fraction)Ordered By: Joceline Montgomery on 01-28-2023 Iron saturation [Mass fraction] 24.8 % 15.0-55.0 [facility] Serum or plasma urea nitroge n measurement (mass/volume)Ordered By: Vimal Bang on 01-28-2023 Urea nitrogen [Mass/Vol] 50 mg/dL 7-18 [facility] Squamous epithelial cells de tection in urine sediment by light microscopyOrdered By: Vimal Bang on 01-28-2023 Epithelial cells.squamous LM Ql (Urine sed) 0 SEEN /hpf 5-10 [facility] Thin prep Papanicolaou smear with manual screeningOrdered By: Vimal Bang on 01-28-2023 Thin prep Papanicolaou smear with manual screening 11 - [facility] Urine blood detectionOrdered By: Vimal Bang on 01-28-2023 RBC Ql (U) Negative Negative [facility] RBC Ql (U) 0 SEEN /hpf 0-5 [facility] Urine clarityOrdered By: Claudy Bang on 01-28-2023 Clarity (U) Clear Clear [facility] Urine color determinationOrd ered By: Vimal Bang on 01-28-2023 Color (U) Yellow Yellow [facility] Urine glucose detectionOrder ed By: Vimal Bang on 01-28-2023 Glucose Ql (U) Normal mg/dl Normal [facility] Urine leukocyte esterase det ection by dipstickOrdered By: Vimal Bang on 01-28-2023 Leukocyte esterase Test strip Ql (U) 100 /ul Negative [facility] Urine pHOrdered By: Vimal gutierrez on 01-28-2023 pH (U) 6.0 [pH] 5.0 - 8.0 [facility] Urine sediment bacteria coun t by microscopy (number/high power field)Ordered By: Vimal Bang on 01-28-2023 Bacteria LM.HPF (Urine sed) [#/Area] 2 /[HPF] None Seen [facility] Urine specific gravity measu rementOrdered By: Vimal Bang on 01-28-2023 Specific gravity (U) [Rel density] 1.010 1.002-1.030 [facility] Urobilinogen Auto test strip Ql (U)Ordered By: Vimal Bang on 01-28-2023 Urobilinogen Ql (U) Normal mg/dl Normal [facility] Basophil percentageOrdered B y: Safia Montgomery on 12-23-2022 Basophil percentage 3.5 mg/dL 2.5-4.9 [facility] Chloride [Moles/Vol] 102 mmol/L 98-107 [facility] Glucose [Mass/Vol] 268 mg/dL 74-106 [facility] Comment on above: Glucose result great er than or equal to 200 mg/dLsuggests DIABETES MELLITUS per A.D.A. criteria. Potassium [Moles/Vol] 4.3 mmol/L 3.5-5.1 [facility] Sodium [Moles/Vol] 133 mmol/L 136-145 [facility] WBC (Bld) [#/Vol] 8.8 10*3/uL 4.4-11.0 [facility] Blood erythrocytes count (nu mber/volume)Ordered By: Safia Montgomery on 12-23-2022 RBC (Bld) [#/Vol] 2.75 10*6/uL 4.2-5.4 [facility] Blood hemoglobin measurement (mass/volume)Ordered By: Safia Montgomery on 12-23-2022 Hemoglobin (Bld) [Mass/Vol] 10.7 g/dL 12.0-15.0 [facility] Blood platelet mean volumeOr dered By: Safia Montgomery on 12-23-2022 Platelet mean volume (Bld) [Entitic vol] 9.9 fL 6.2-12.0 [facility] Determination of erythrocyte mean corpuscular volume (MCV)Ordered By: Safia Montgomery on 12-23-2022 MCV (RBC) [Entitic vol] 112.0 fL 81-99 [facility] Hematocrit Auto (Bld) [Volum e fraction]Ordered By: Safia Montgomery on 12-23-2022 Hematocrit (Bld) [Volume fraction] 30.8 % 37-47 [facility] Iron measurement (mass/mass) Ordered By: Safia Montgomery on 12-23-2022 Iron (Unsp spec) [Mass/Mass] 126 ug/dL 50-170 [facility] - Chemistry and C hemistry - challengeOrdered By: Safia Montgomery on 12-23-2022 CO2 [Moles/Vol] 24.0 mmol/L 21.0-32.0 [facility] Urea nitrogen/Creatinine [Mass ratio] 30.8 mg/mg 10-20 [facility] - Hematology and Cell countsOrdered By: Safia Montgomery on 12-23-2022 Erythrocyte distribution width (RBC) [Entitic vol] 63.3 fL 35.1-43.9 [facility] Erythrocyte distribution width (RBC) [Ratio] 15.6 % 11.6-14.6 [facility] MCH (RBC) [Entitic mass] 38.9 pg 27.0-32.0 [facility] MCHC Auto (RBC) [Mass/Vol]Or dered By: Safia Montgomery on 12-23-2022 MCHC (RBC) [Mass/Vol] 34.7 g/dL 32-36 [facility] No Panel InformationOrdered By: Safia Montgomery on 12-23-2022 Estimated GFR (MDRD) Amer 44 mL/min >60 [facility] Comment on above: GFR Calc Estimated GFR (MDRD) Non-Af Amer 36 mL/min >60 [facility] Comment on above: Non- GFR Calc Total Iron Binding Capacity 300 ug/dL 250-450 [facility] Platelets bldOrdered By: Diony Montgomery on 12-23-2022 Platelets (Bld) [#/Vol] 313 10*3/uL 150-450 [facility] Serum or plasma albumin rajesh urement (mass/volume)Ordered By: Safia Montgomery on 12-23-2022 Albumin [Mass/Vol] 3.5 g/dL 3.2-5.0 [facility] Serum or plasma calcium rajesh urement (mass/volume)Ordered By: Safia Montgomery on 12-23-2022 Calcium [Mass/Vol] 9.0 mg/dL 8.5-10.1 [facility] Serum or plasma creatinine m easurement (mass/volume)Ordered By: Safia Montgomery on 12-23-2022 Creatinine [Mass/Vol] 1.46 mg/dL 0.55-1.02 [facility] Comment on above: The validity of the calculated GFR & GFRAA in patients over 70 years has not been determined. Clinical correlation is essential. Serum or plasma ferritin [place] surement (mass/volume)Ordered By: Safia Montgomery on 12-23-2022 Ferritin [Mass/Vol] 149 ng/mL 8-252 [facility] Serum or plasma iron saturat ion measurement (mass fraction)Ordered By: Safia Montgomery on 12-23-2022 Iron saturation [Mass fraction] 42.0 % 15.0-55.0 [facility] Serum or plasma urea nitroge n measurement (mass/volume)Ordered By: Safia Montgomery on 12-23-2022 Urea nitrogen [Mass/Vol] 45 mg/dL 7-18 [facility] Urine creatinine measurement (mass/volume)Ordered By: Safia Montgomery on 12-23-2022 Creatinine (U) [Mass/Vol] 44.70 mg/dL NO RANGE EST. [facility] Urine protein measurement (m ass/volume)Ordered By: Safia Montgomery on 12-23-2022 Protein (U) [Mass/Vol] 11.2 mg/dL 0.0-11.8 [facility] Urine protein/creatinine mas s ratioOrdered By: Safia Montgomery on 12-23-2022 Protein/Creatinine (U) [Mass ratio] 251 mg/g CRE 0-200 [facility] ALBUMIN/CREAT RATIO RND URon 06-22-2022 Albumin DL <= 20 mg/L (U) [Mass/Vol] 32.1 mg/L [facility] Albumin/Creatinine (U) [Mass ratio] 168 mg/g High <30 mg/g [facility] Creatinine (U) [Mass/Vol] 19.1 mg/dL Low 20.0 - 300.0 mg/dL [facility] HbA1c (Bld)on 06-22-2022 Average glucose Estimated from glycated hemoglobin (Bld) [Mass/Vol] 171 mg/dL [facility] HbA1c (Bld) [Mass fraction] 7.6 % High 4.3 - 5.6 % [facility] LIPID PANEL, NONFASTINGon Cholesterol [Mass/Vol] 152 mg/dL <200 mg/dL [facility] HDL Cholesterol, Nonfasting 59 mg/dL >39 mg/dL [facility] LDL Cholesterol, Nonfasting 64 mg/dL <100 mg/dL [facility] LDL/HDL Ratio, Nonfasting 1.08 mg/dL <2.54 mg/dL [facility] Non HDL Cholesterol, Nonfasting 93 mg/dL <130 mg/dL [facility] Total Chol/HDL Ratio, Nonfasting 2.58 mg/dL <5.10 mg/dL [facility] Triglycerides, Nonfasting 146 mg/dL <150 mg/dL [facility] VLDL Cholesterol, Nonfasting 29 mg/dL <30 mg/dL [facility] Iron measurement (mass/mass) Ordered By: Dr. Montgomery on 05-21-2022 Iron (Unsp spec) [Mass/Mass] 111 ug/dL 50-170 [facility] No Panel InformationOrdered By: Dr. Montgomery on 05-21-2022 Total Iron Binding Capacity 319 ug/dL 250-450 [facility] Serum or plasma ferritin [place] surement (mass/volume)Ordered By: Dr. Montgomery on 05-21-2022 Ferritin [Mass/Vol] 104 ng/mL 8-252 [facility] Serum or plasma iron saturat ion measurement (mass fraction)Ordered By: Dr. Montgomery on 05-21-2022 Iron saturation [Mass fraction] 34.8 % 15.0-55.0 [facility] Basophil percentageOrdered B y: Dr. Montgomery on 05-14-2022 Basophil percentage 3.7 mg/dL 2.5-4.9 [facility] Chloride [Moles/Vol] 101 mmol/L 98-107 [facility] Glucose [Mass/Vol] 312 mg/dL 74-106 [facility] Comment on above: Glucose result great er than or equal to 200 mg/dLsuggests DIABETES MELLITUS per A.D.A. criteria. Potassium [Moles/Vol] 4.5 mmol/L 3.5-5.1 [facility] Sodium [Moles/Vol] 134 mmol/L 136-145 [facility] WBC (Bld) [#/Vol] 8.9 10*3/uL 4.4-11.0 [facility] Blood erythrocytes count (nu mber/volume)Ordered By: Dr. Montgomery on 05-14-2022 RBC (Bld) [#/Vol] 2.90 10*6/uL 4.2-5.4 [facility] Blood hemoglobin measurement (mass/volume)Ordered By: Dr. Montgomery on 05-14-2022 Hemoglobin (Bld) [Mass/Vol] 10.8 g/dL 12.0-15.0 [facility] Blood platelet mean volumeOr dered By: Dr. Montgomery on 05-14-2022 Platelet mean volume (Bld) [Entitic vol] 9.9 fL 6.2-12.0 [facility] Determination of erythrocyte mean corpuscular volume (MCV)Ordered By: Dr. Montgomery on 05-14-2022 MCV (RBC) [Entitic vol] 110.3 fL 81-99 [facility] Hematocrit Auto (Bld) [Volum e fraction]Ordered By: Dr. Montgomery on 05-14-2022 Hematocrit (Bld) [Volume fraction] 32.0 % 37-47 [facility] - Chemistry and C hemistry - challengeOrdered By: Dr. Montgomery on 05-14-2022 CO2 [Moles/Vol] 25.0 mmol/L 21.0-32.0 [facility] Urea nitrogen/Creatinine [Mass ratio] 30.4 mg/mg 10-20 [facility] - Hematology and Cell countsOrdered By: Dr. Montgomery on 05-14-2022 Erythrocyte distribution width (RBC) [Entitic vol] 61.1 fL 35.1-43.9 [facility] Erythrocyte distribution width (RBC) [Ratio] 15.1 % 11.6-14.6 [facility] MCH (RBC) [Entitic mass] 37.2 pg 27.0-32.0 [facility] MCHC Auto (RBC) [Mass/Vol]Or dered By: Dr. Montgomery on 05-14-2022 MCHC (RBC) [Mass/Vol] 33.8 g/dL 32-36 [facility] No Panel InformationOrdered By: Dr. Montgomery on 05-14-2022 Estimated GFR (MDRD) Amer 39 mL/min >60 [facility] Comment on above: GFR Calc Estimated GFR (MDRD) Non-Af Amer 32 mL/min >60 [facility] Comment on above: Non- GFR Calc Parathyroid Hormone (Intact) 101.4 pg/mL 18.4-80.1 [facility] Platelets bldOrdered By: Dr. Montgomery on 05-14-2022 Platelets (Bld) [#/Vol] 317 10*3/uL 150-450 [facility] Serum or plasma albumin rajesh urement (mass/volume)Ordered By: Dr. Montgomery on 05-14-2022 Albumin [Mass/Vol] 3.7 g/dL 3.2-5.0 [facility] Serum or plasma calcium rajesh urement (mass/volume)Ordered By: Dr. Montgomery on 05-14-2022 Calcium [Mass/Vol] 9.3 mg/dL 8.5-10.1 [facility] Serum or plasma creatinine m easurement (mass/volume)Ordered By: Dr. Montgomery on 05-14-2022 Creatinine [Mass/Vol] 1.61 mg/dL 0.55-1.02 [facility] Comment on above: The validity of the calculated GFR & GFRAA in patients over 70 years has not been determined. Clinical correlation is essential. Serum or plasma urea nitroge n measurement (mass/volume)Ordered By: Dr. Montgomery on 05-14-2022 Urea nitrogen [Mass/Vol] 49 mg/dL 7-18 [facility] UA DIP, URINE (POC)on 2022 BILIRUBIN UA (POCT) Negative Negative [facility] CLARITY UA (POCT) Slightly Cloudy Cl [facility] COLOR UA (POCT) Light yellow [facility] GLUCOSE UA (POCT) Negative Negative mg/dL [facility] HEMOGLOBIN/BLOOD UA (POCT) Trace-intact Abnormal Negative [facility] KETONE UA (POCT) Negative Negative mg/dL [facility] LEUKOCYTES UA (POCT) Moderate Abnormal Negative [facility] NITRITE UA (POCT) Negative Negative [facility] PH UA (POCT) 8.5 Abnormal 4.5 - 8.0 [facility] Protein Ql (U) 100 mg/dL Abnormal Negative mg/dL [facility] SPECIFIC GRAVITY UA (POCT) 1.015 1.005 - 1.030 [facility] UROBILINOGEN UA (POCT) 0.2 E.U./dL Shanda l E.U./dL [facility] Absolute lymphocyte counton 01-05-2022 Lymphocytes Auto (Unsp spec) [#/Vol] 1.88 10*3/uL 0.83-4.51 [facility] Work Phone: Basophil percentageon 2021 Basophils/100 WBC (Bld) 0.4 % 0-1 [facility] Work Phone: Eosinophils/100 WBC (Bld) 3.6 % 0-5 [facility] Work Phone: Neutrophils (Bld) [#/Vol] 5.9 10*3/uL 2.0-7.7 [facility] Work Phone: Neutrophils/100 WBC (Bld) 65.6 % 47-70 [facility] Work Phone: WBC (Bld) [#/Vol] 9.0 10*3/uL 4.4-11.0 [facility] Work Phone: Blood erythrocytes count (nu mber/volume)on 01-05-2022 RBC (Bld) [#/Vol] 2.86 10*6/uL 4.2-5.4 [facility]: Blood hemoglobin measurement (mass/volume)on 01-05-2022 Hemoglobin (Bld) [Mass/Vol] 10.3 g/dL 12.0-15.0 [facility] Work Phone: Blood lymphocytes/100 leukoc yteson 01-05-2022 Lymphocytes/100 WBC (Bld) 21.0 % 19-41 [facility] Work Phone: Blood monocytes/100 leukocyt eson 01-05-2022 Monocytes/100 WBC (Bld) 9.0 % 0-10 [facility] Work Phone: Blood platelet mean volumeon 01-05-2022 Platelet mean volume (Bld) [Entitic vol] 9.9 fL 6.2-12.0 [facility] Work Phone: Determination of erythrocyte mean corpuscular volume (MCV)on 01-05-2022 MCV (RBC) [Entitic vol] 108.7 fL 81-99 [facility] Work Phone: [phone] Hematocrit Auto (Bld) [Volum e fraction]on 01-05-2022 Hematocrit (Bld) [Volume fraction] 31.1 % 37-47 [facility] Work Phone: [phone] Laboratory - Hematology and Cell countson 01-05-2022 Erythrocyte distribution width (RBC) [Entitic vol] 63.8 fL 35.1-43.9 [facility] Work Phone: [phone] Erythrocyte distribution width (RBC) [Ratio] 16.0 % 11.6-14.6 [facility] Work Phone: [phone] Immature granulocytes/100 WBC (Bld) 0.400 % 0.0-0.9 [facility] Work Phone: [phone] Comment on above: IG% - Immature Granu locytes (promyelocytes, myelocytes and metamyelocytes) > 1% indicates that a LEFT SHIFT is Present. MCH (RBC) [Entitic mass] 36.0 pg 27.0-32.0 [facility] Work Phone: [phone] Nucleated RBC/100 WBC (Bld) [Ratio] 0.3 % 0-5 [facility] Work Phone: [phone] MCHC Auto (RBC) [Mass/Vol]on 01-05-2022 MCHC (RBC) [Mass/Vol] 33.1 g/dL 32-36 [facility] Work Phone: [phone] Platelets bldon 01-05-2022 Platelets (Bld) [#/Vol] 325 10*3/uL 150-450 [facility] Work Phone: [phone] HbA1c (Bld)on 12-19-2021 Average glucose Estimated from glycated hemoglobin (Bld) [Mass/Vol] 157 mg/dL [facility] HbA1c (Bld) [Mass fraction] 7.1 % High 4.3 - 5.6 % [facility] Basophil percentageon 2021 Bilirubin [Mass/Vol] 0.50 mg/dL 0.20-1.00 [facility] Work Phone: [phone] Comment on above: For patients on eltr ombopag therapy, use of Dimension [place] TBIL is not recommended. Cholesterol [Mass/Vol] 135 mg/dL <200 [facility] Work Phone: [phone] Comment on above: <200 mg/dL Desirable 200-240 mg/dL Borderline >240 mg/dL High Risk Protein [Mass/Vol] 7.3 g/dL 6.4-8.2 [facility] Work Phone: [phone] Triglyceride [Mass/Vol] 96 mg/dL <199 [facility] Work Phone: [phone] Comment on above: The drugs N-Acetylcy steine and Metamizole may falsely depress this assay.Serum Triglycerides Reference Interval Normal <150 mg/dL Borderline high 150 - 199 mg/dL High 200 - 499 mg/dL Very High > or = 500 mg/dL Basophil percentage 3.4 mg/dL 2.5-4.9 [facility] Work Phone: [phone] Chloride [Moles/Vol] 103 mmol/L 98-107 [facility] Work Phone: [phone] Glucose [Mass/Vol] 127 mg/dL 74-106 [facility] Work Phone: [phone] Comment on above: Fasting Glucose resu lt greater than or equal to 126 mg/dL suggests DIABETES MELLITUS per A.D.A. criteria. Potassium [Moles/Vol] 4.6 mmol/L 3.5-5.1 [facility] Work Phone: [phone] Sodium [Moles/Vol] 137 mmol/L 136-145 [facility] Work Phone: [phone] Direct bilirubinon 2 Bilirubin.direct [Mass/Vol] 0.16 mg/dL 0.00-0.30 [facility] Work Phone: [phone] Laboratory - Chemistry and C hemistry - challengeon 09-23-2021 ALP [Catalytic activity/Vol] 47 U/L 45-117 [facility] Work Phone: [phone] ALT [Catalytic activity/Vol] 15 U/L 13-56 [facility] Work Phone: [phone] Globulin (S) [Mass/Vol] 3.5 g/dL 2.2-4.2 [facility] Work Phone: CO2 [Moles/Vol] 26.0 mmol/L 21.0-32.0 [facility] Work Phone: Urea nitrogen/Creatinine [Mass ratio] 40.0 mg/mg 10-20 [facility] Work Phone: No Panel Informationon 09-23 Estimated GFR (MDRD) Amer 42 mL/min >60 [facility] Work Phone: Comment on above: GFR Calc Estimated GFR (MDRD) Non-Af Amer 35 mL/min >60 [facility] Work Phone: Comment on above: Non- GFR Calc Serum or plasma albumin rajesh urement (mass/volume)on 09-23-2021 Albumin [Mass/Vol] 3.8 g/dL 3.2-5.0 [facility] Work Phone: [phone] Serum or plasma calcium rajesh urement (mass/volume)on 09-23-2021 Calcium [Mass/Vol] 9.3 mg/dL 8.5-10.1 [facility] Work Phone: [phone] Serum or plasma cholesterol in HDL measurement (mass/volume)on 09-23-2021 Cholesterol in HDL [Mass/Vol] 60 mg/dL >40 [facility] Work Phone: Comment on above: The drugs N-Acetylcy steine and Metamizole may falsely depress this assay. Reference Range HDL <40 mg/dL Low HDL Cholesterol HDL >or= 60 mg/dL High HDL Cholesterol Serum or plasma cholesterol in VLDL measurement (mass/volume)on 09-23-2021 Cholesterol in VLDL [Mass/Vol] 19 mg/dL 5-40 [facility] Work Phone: [phone] Serum or plasma creatinine m easurement (mass/volume)on 09-23-2021 Creatinine [Mass/Vol] 1.50 mg/dL 0.55-1.02 [facility] Work Phone: [phone] Comment on above: The validity of the calculated GFR & GFRAA in patients over 70 years has not been determined. Clinical correlation is essential. Serum or plasma low density lipoprotein (LDL) cholesterol measurement (mass/volume)on 09-23-2021 Cholesterol in LDL [Mass/Vol] 56 mg/dL 0-130 [facility] Work Phone: Serum or plasma urea nitroge n measurement (mass/volume)on 09-23-2021 Urea nitrogen [Mass/Vol] 60 mg/dL 7-18 [facility] Work Phone: Thin prep Papanicolaou smear with manual screeningon 09-23-2021 Thin prep Papanicolaou smear with manual screening 10 U/L 15-37 [facility] Work Phone: Urine creatinine measurement (mass/volume)on 09-23-2021 Creatinine (U) [Mass/Vol] 38.90 mg/dL NO RANGE EST. [facility] Work Phone: Urine protein measurement (m ass/volume)on 09-23-2021 Protein (U) [Mass/Vol] 11.2 mg/dL 0.0-11.8 [facility] Work Phone: Urine protein/creatinine mas s ratioon 09-23-2021 Protein/Creatinine (U) [Mass ratio] 288 mg/g CRE 0-200 [facility] Work Phone: CBC panel Auto (Bld)on 06-18 Erythrocyte distribution width (RBC) [Ratio] 14.6 % 11.5 - 15.0 % [facility] Hematocrit (Bld) [Volume fraction] 34.3 % Low 36.0 - 46.0 % [facility] Hemoglobin (Bld) [Mass/Vol] 11.6 g/dL 11.5 - 15.5 g/dL [facility] MCH (RBC) [Entitic mass] 37.2 pg High 26.0 - 34.0 pg [facility] MCHC (RBC) [Mass/Vol] 33.8 g/dL 30.5 - 36.0 g/dL [facility] MCV (RBC) [Entitic vol] 109.9 fL High 80.0 - 100.0 fL [facility] Nucleated RBC (Bld) [#/Vol] 0.03 10*3/uL High <0.01 k/uL [facility] Platelet mean volume (Bld) [Entitic vol] 10.2 fL 9.0 - 12.7 fL [facility] Platelets (Bld) [#/Vol] 332 10*3/uL 150 - 400 k/uL [facility] RBC (Bld) [#/Vol] 3.12 10*6/uL Low 3.90 - 5.2 0 m/uL [facility] WBC (Bld) [#/Vol] 9.70 10*3/uL 3.70 - 11. 00 k/uL [facility] Comprehensive metabolic 2000 panelon 06-18-2021 Albumin [Mass/Vol] 4.4 g/dL 3.9 - 4.9 g/dL [facility] ALP [Catalytic activity/Vol] 48 U/L 34 - 123 U/L [facility] ALT [Catalytic activity/Vol] 8 U/L 7 - 38 U/L [facility] Anion gap [Moles/Vol] 16 mmol/L 9 - 18 mmol/L [facility] AST [Catalytic activity/Vol] 15 U/L 13 - 35 U/L [facility] Bilirubin [Mass/Vol] 0.4 mg/dL 0.2 - 1 .3 mg/dL [facility] Calcium [Mass/Vol] 9.6 mg/dL 8.5 - 10. 2 mg/dL [facility] Chloride [Moles/Vol] 99 mmol/L 97 - 10 5 mmol/L [facility] CO2 [Moles/Vol] 24 mmol/L 22 - 30 mmol/L [facility] Creatinine [Mass/Vol] 2.09 mg/dL High 0.58 - 0.96 mg/dL [facility] Estimated Glomerular Filtration Rate 23 mL/min/1.73m Low >=60 mL/min/1.73m [facility] Glucose [Mass/Vol] 220 mg/dL High 74 - 99 mg/dL [facility] Potassium [Moles/Vol] 4.3 mmol/L 3.7 - 5.1 mmol/L [facility] Protein [Mass/Vol] 7.5 g/dL 6.3 - 8.0 g/dL [facility] Sodium [Moles/Vol] 139 mmol/L 136 - 144 mmol/L [facility] Urea nitrogen [Mass/Vol] 50 mg/dL High 7 - 21 mg/dL [facility] HGB A1Con 06-18-2021 Average glucose Estimated from glycated hemoglobin (Bld) [Mass/Vol] 169 mg/dL [facility] HbA1c (Bld) [Mass fraction] 7.5 % High 4.3 - 5.6 % [facility] LIPID PANEL, NONFASTINGon Cholesterol [Mass/Vol] 134 mg/dL <200 mg/dL [facility] HDL Cholesterol, Nonfasting 53 mg/dL >39 mg/dL [facility] LDL Cholesterol, Nonfasting 58 mg/dL <100 mg/dL [facility] LDL/HDL Ratio, Nonfasting 1.09 mg/dL <2.54 mg/dL [facility] Non HDL Cholesterol, Nonfasting 81 mg/dL <130 mg/dL [facility] Total Chol/HDL Ratio, Nonfasting 2.53 mg/dL <5.10 mg/dL [facility] Triglycerides, Nonfasting 113 mg/dL <150 mg/dL [facility] VLDL Cholesterol, Nonfasting 23 mg/dL <30 mg/dL [facility] Vital Signs Date Time Vital Sign Value Performing Clinician Faci lity 10-11-2024 16:29-0400 Body temperature 98.4 [degF] Dr. Koko Fuentes MD Work Phone: [facility] 10-11-2024 16:29-0400 Diastolic blood pressure 55 mm[Hg] Dr. Koko Fuentes MD Work Phone: [facility] 10-11-2024 16:29-0400 Heart rate 83 /min Dr. Koko Fuentes MD Work Phone: [facility] 10-11-2024 16:29-0400 Respiratory rate 17 /min Dr. Koko Fuentes MD Work Phone: [facility] 10-11-2024 16:29-0400 SaO2% (BldA) [Mass fraction] 97 % Dr. Koko Fuentes MD Work Phone: [facility] 10-11-2024 16:29-0400 Systolic blood pressure 111 mm[Hg] Dr. Koko Fuentes MD Work Phone: [facility] 10-11-2024 13:21-0400 Body height 149.[address] Koko Fuentes MD Work Phone: [facility] 10-06-2024 11:42-0400 Body mass index (BMI) [Ratio] 29.29 kg/m2 Sarah Podlogar [employer] Work Phone: [facility] 10-06-2024 11:42-0400 Body weight 65.77 kg Sarah Podlogar [employer] Work Phone: [facility] 10-06-2024 11:42-0400 Diastolic blood pressure 62 mm[Hg] Sarah Podlogar [employer] Work Phone: [facility] 10-06-2024 11:42-0400 Heart rate 78 /min Sarah Podlogar [employer] Work Phone: [facility] 10-06-2024 11:42-0400 Respiratory rate 16 /min Sarah Podlogar [employer] Work Phone: [facility] 10-06-2024 11:42-0400 SaO2% (BldA) [Mass fraction] 96 % Sarah Podlogar [employer] Work Phone: [facility] 10-06-2024 11:42-0400 Systolic blood pressure 130 mm[Hg] Sarah Podlogar [employer] Work Phone: [facility] 09-26-2024 14:05-0400 Body temperature 99.39 [degF] Frank Fuentes MD Work Phone: [facility] 09-26-2024 14:05-0400 Diastolic blood pressure 38 mm[Hg] Frank Fuentes MD Work Phone: [facility] 09-26-2024 14:05-0400 Systolic blood pressure 88 mm[Hg] Frank Fuentes MD Work Phone: [facility] 09-26-2024 13:21-0400 Body height 149.9 cm Frank Fuentes MD Work Phone: [facility] 09-26-2024 13:21-0400 Body mass index (BMI) [Ratio] 29.93 kg/m2 Frank Fuentes MD Work Phone: [facility] 09-26-2024 13:21-0400 Body weight 67.22 kg Frank Fuentes MD Work Phone: [facility] 09-26-2024 13:21-0400 Heart rate 80 /min Frank Fuentes MD Work Phone: [facility] 09-26-2024 13:21-0400 SaO2% (BldA) [Mass fraction] 98 % Frank Fuentes MD Work Phone: [facility] 07-11-2024 13:31-0400 Body mass index (BMI) [Ratio] 30.3 kg/m2 Frank Fuentes MD Work Phone: [facility] 07-11-2024 13:31-0400 Body weight 68.04 kg Frank Fuentes MD Work Phone: [facility] 07-11-2024 13:31-0400 Diastolic blood pressure 64 mm[Hg] Frank Fuentes MD Work Phone: [facility] 07-11-2024 13:31-0400 Heart rate 78 /min Frank Fuentes MD Work Phone: [facility] 07-11-2024 13:31-0400 Respiratory rate 16 /min Frank Fuentes MD Work Phone: [facility] 07-11-2024 13:31-0400 SaO2% (BldA) [Mass fraction] 97 % Frank Fuentes MD Work Phone: [facility] 07-11-2024 13:31-0400 Systolic blood pressure 124 mm[Hg] Frank Fuentes MD Work Phone: [facility] 06-27-2024 12:29-0400 Body mass index (BMI) [Ratio] 30.7 kg/m2 Frank Fuentes MD Work Phone: [facility] 06-27-2024 12:29-0400 Body weight 68.95 kg Frank Fuentes MD Work Phone: [facility] 06-27-2024 12:29-0400 Diastolic blood pressure 60 mm[Hg] Frank Fuentes MD Work Phone: [facility] 06-27-2024 12:29-0400 Heart rate 80 /min Frank Fuentes MD Work Phone: [facility] 06-27-2024 12:29-0400 Respiratory rate 16 /min Frank Funetes MD Work Phone: [facility] 06-27-2024 12:29-0400 SaO2% (BldA) [Mass fraction] 96 % Frank Fuentes MD Work Phone: 4(778)689-558607 [place] [address] 06-27-2024 12:29-0400 Systolic blood pressure 112 mm[Hg] Frank Fuentes MD Work Phone: 9(295)405-702407 [place] [address] 04-27-2024 11:20-0500 Body height 149.[address] Koko Fuentes MD Work Phone: 8(819)663-982487 [place] [address] 04-27-2024 11:20-0500 Body mass index (BMI) [Ratio] 30.4 kg/m2 Dr. Koko Fuentes MD Work Phone: 9(859)133-090387 [place] [address] 04-27-2024 11:20-0500 Body weight 68.[address] Koko Fuentes MD Work Phone: 0(762)308-474987 [place] [address] 04-27-2024 11:20-0500 Diastolic blood pressure 83 mm[Hg] Dr. Koko Fuentes MD Work Phone: 4(553)705-073587 [place] [address] 04-27-2024 11:20-0500 Heart rate 82 /min Dr. Koko Fuentes MD Work Phone: 0(147)164-010987 [place] [address] 04-27-2024 11:20-0500 Respiratory rate 18 /min Dr. Koko Fuentes MD Work Phone: [facility] 04-27-2024 11:20-0500 SaO2% (BldA) [Mass fraction] 98 % Dr. Koko Fuentes MD Work Phone: [facility] 04-27-2024 11:20-0500 Systolic blood pressure 126 mm[Hg] Dr. Koko Fuentes MD Work Phone: 5(078)072-128798 [place] [address] 03-29-2024 12:36-0500 Body mass index (BMI) [Ratio] 30.22 kg/m2 Frank Fuentes MD Work Phone: [facility] 03-29-2024 12:36-0500 Body weight 67.86 kg Frank Fuentes MD Work Phone: 6(627)865-352907 [place] [address] 03-29-2024 12:36-0500 Diastolic blood pressure 62 mm[Hg] Frank Fuentes MD Work Phone: 4(379)691-912707 [place] [address] 03-29-2024 12:36-0500 Heart rate 80 /min Frank Fuentes MD Work Phone: 9(471)999-599207 [place] [address] 03-29-2024 12:36-0500 Respiratory rate 16 /min Frank Fuentes MD Work Phone: [facility] 03-29-2024 12:36-0500 SaO2% (BldA) [Mass fraction] 99 % Frank Fuentes MD Work Phone: [facility] 03-29-2024 12:36-0500 Systolic blood pressure 106 mm[Hg] Frank Fuentes MD Work Phone: [facility] 12-28-2023 13:59-0400 Body mass index (BMI) [Ratio] 30.82 kg/m2 Frank Fuentes MD Work Phone: 2(121)906-900407 [place] [address] 12-28-2023 13:59-0400 Body weight 69.22 kg Frank Fuentes MD Work Phone: [facility] 12-28-2023 13:59-0400 Diastolic blood pressure 64 mm[Hg] Frank Fuentes MD Work Phone: [facility] 12-28-2023 13:59-0400 Heart rate 79 /min Frank Fuentes MD Work Phone: [facility] 12-28-2023 13:59-0400 SaO2% (BldA) [Mass fraction] 99 % Frank Fuentes MD Work Phone: [facility] 12-28-2023 13:59-0400 Systolic blood pressure 116 mm[Hg] Frank Fuentes MD Work Phone: [facility] 09-22-2023 14:15-0400 Diastolic blood pressure 62 mm[Hg] Frank Fuentes MD Work Phone: [facility] 09-22-2023 14:15-0400 Systolic blood pressure 124 mm[Hg] Frank Fuentes MD Work Phone: [facility] 09-22-2023 13:40-0400 Body height 149.9 cm Frank Fuentes MD Work Phone: [facility] 09-22-2023 13:40-0400 Body mass index (BMI) [Ratio] 30.3 kg/m2 Frank Fuentes MD Work Phone: [facility] 09-22-2023 13:40-0400 Body weight 68.04 kg Frank Fuentes MD Work Phone: [facility] 09-22-2023 13:40-0400 Heart rate 77 /min Frank Fuentes MD Work Phone: [facility] 09-22-2023 13:40-0400 Respiratory rate 12 /min Frank Fuentes MD Work Phone: [facility] 09-22-2023 13:40-0400 SaO2% (BldA) [Mass fraction] 97 % Frank Fuentes MD Work Phone: [facility] 06-23-2023 14:00-0400 Body weight 69.85 kg Frank Fuentes MD Work Phone: [facility] 06-23-2023 14:00-0400 Diastolic blood pressure 70 mm[Hg] Frank Fuentes MD Work Phone: [facility] 06-23-2023 14:00-0400 Heart rate 84 /min Frank Fuentes MD Work Phone: [facility] 06-23-2023 14:00-0400 Respiratory rate 16 /min Frank Fuentes MD Work Phone: [facility] 06-23-2023 14:00-0400 Systolic blood pressure 120 mm[Hg] Frank Fuentes MD Work Phone: [facility] 02-19-2023 10:00-0500 Body height 149.9 cm Nimesh Phillips MD Work Phone: [facility] 02-19-2023 10:00-0500 Body weight 68.9 kg Nimesh Phillips MD Work Phone: [facility] 02-19-2023 10:00-0500 Diastolic blood pressure 74 mm[Hg] Nimesh Phillips MD Work Phone: [facility] 02-19-2023 10:00-0500 Heart rate 82 /min Nimesh Phillips MD Work Phone: [facility] 02-19-2023 10:00-0500 Respiratory rate 16 /min Nimesh Phillips MD Work Phone: [facility] 02-19-2023 10:00-0500 SaO2% (BldA) [Mass fraction] 98 % Nimesh Phillips MD Work Phone: [facility] 02-19-2023 10:00-0500 Systolic blood pressure 122 mm[Hg] Nimesh Phillips MD Work Phone: [facility] 02-15-2023 15:13-0500 Body weight 69.22 kg Frank Fuentes MD Work Phone: [facility] 02-15-2023 15:13-0500 Diastolic blood pressure 56 mm[Hg] Frank Fuentes MD Work Phone: [facility] 02-15-2023 15:13-0500 Heart rate 79 /min Frank Fuenets MD Work Phone: [facility] 02-15-2023 15:13-0500 Respiratory rate 16 /min Frank Fuentes MD Work Phone: [facility] 02-15-2023 15:13-0500 SaO2% (BldA) [Mass fraction] 95 % Frank Fuentes MD Work Phone: [facility] 02-15-2023 15:13-0500 Systolic blood pressure 110 mm[Hg] Frank Fuentes MD Work Phone: [facility] 01-31-2023 11:29-0500 Diastolic blood pressure 54 mm[Hg] Dr. Koko Fuentes Work Phone: 4(607)162-029498 [place] [address] 01-31-2023 11:29-0500 Systolic blood pressure 124 mm[Hg] Dr. Koko Fuentes Work Phone: 0(954)655-444098 [place] [address] 01-31-2023 11:00-0500 SaO2% (BldA) [Mass fraction] 92 % Dr. Koko Fuentes Work Phone: [facility] 01-31-2023 10:34-0500 Body temperature 97.7 [degF] Dr. Koko Fuentes Work Phone: 3(709)374-139798 [place] [address] 01-31-2023 10:34-0500 Heart rate 74 /min Dr. Koko Fuentes Work Phone: 9(223)129-418098 [place] [address] 01-31-2023 10:34-0500 Respiratory rate 16 /min Dr. Koko Fuentes Work Phone: [facility] 01-31-2023 03:50-0500 Body mass index (BMI) [Ratio] 31.8 kg/m2 Dr. Koko Fuentes Work Phone: 3(114)221-097198 [place] [address] 01-31-2023 03:50-0500 Body weight 71.[address] Koko Fuentes Work Phone: [facility] 01-31-2023 03:06-0500 Inhaled oxygen flow rate 2 L/min Dr. Koko Fuentes Work Phone: [facility] 01-29-2023 13:34-0500 Body height 149.[address] Koko Fuentes Work Phone: [facility] 01-28-2023 22:10-0500 Body height 149.86 cm [facility] 01-28-2023 22:10-0500 Body mass index (BMI) [Ratio] 31.1 kg/m2 [facility] 01-28-2023 22:10-0500 Body weight 70 kg [facility] 01-28-2023 21:09-0500 Diastolic blood pressure 54 mm[Hg] [facility] 01-28-2023 21:09-0500 Heart rate 84 /min [facility] 01-28-2023 21:09-0500 Respiratory rate 17 /min [facility] 01-28-2023 21:09-0500 SaO2% (BldA) [Mass fraction] 93 % [facility] 01-28-2023 21:09-0500 Systolic blood pressure 124 mm[Hg] [facility] 01-28-2023 16:42-0500 Body temperature 97.8 [degF] [facility] 12-22-2022 10:36-0400 Body weight 72.58 kg Frank Fuentes MD Work Phone: [facility] 12-22-2022 10:36-0400 Diastolic blood pressure 70 mm[Hg] Frank Fuentes MD Work Phone: [facility] 12-22-2022 10:36-0400 Heart rate 73 /min Frank Fuentes MD Work Phone: [facility] 12-22-2022 10:36-0400 Respiratory rate 16 /min Frank Fuentes MD Work Phone: [facility] 12-22-2022 10:36-0400 SaO2% (BldA) [Mass fraction] 94 % Frank Fuentes MD Work Phone: [facility] 12-22-2022 10:36-0400 Systolic blood pressure 130 mm[Hg] Frank Fuentes MD Work Phone: [facility] 09-22-2022 13:29-0400 Body weight 73.66 kg Sarah Podlogar [employer]ISH[employer] Work Phone: [facility] 09-22-2022 13:29-0400 Diastolic blood pressure 56 mm[Hg] Sarah Podlogar [employer]QU[employer]MENT MECH[employer]IC.[employer] REFINISHER Work Phone: [facility] 09-22-2022 13:29-0400 Heart rate 82 /min Sarah Podlogar [employer] EQUIPMENT MECHANIC.[employer] REFINISHER Work Phone: [facility] 09-22-2022 13:29-0400 Respiratory rate 16 /min Sarah Podlogar [employer] EQUIPMENT MECH[employer]IC.[employer] REFINISHER Work Phone: [facility] 09-22-2022 13:29-0400 SaO2% (BldA) [Mass fraction] 95 % Sarah Podlogar [employer]QU[employer]MENT MECH[employer]IC.[employer] REFINISHER Work Phone: [facility] 09-22-2022 13:29-0400 Systolic blood pressure 120 mm[Hg] Sarah Podlogar [employer]QU[employer]MENT MECH[employer]IC.[employer] REFINISHER Work Phone: [facility] 09-21-2022 10:26-0400 Body height 149.[address] Koko Fuentes Work Phone: [facility] 09-21-2022 10:26-0400 Body mass index (BMI) [Ratio] 33.1 kg/m2 Dr. Koko Fuentes Work Phone: [facility] 09-21-2022 10:26-0400 Body weight 74.[address] Koko Fuentes Work Phone: [facility] 09-21-2022 10:26-0400 Diastolic blood pressure 74 mm[Hg] Dr. Koko Fuentes Work Phone: [facility] 09-21-2022 10:26-0400 Heart rate 79 /min Dr. Koko Fuentes Work Phone: [facility] 09-21-2022 10:26-0400 Respiratory rate 18 /min Dr. Koko Fuentes Work Phone: [facility] 09-21-2022 10:26-0400 SaO2% (BldA) [Mass fraction] 95 % Dr. Koko Fuentes Work Phone: [facility] 09-21-2022 10:26-0400 Systolic blood pressure 145 mm[Hg] Dr. Koko Fuentes Work Phone: [facility] 06-22-2022 10:59-0400 Body weight 74.57 kg Frank Fuentes MD Work Phone: [facility] 06-22-2022 10:59-0400 Diastolic blood pressure 62 mm[Hg] Frank Fuentes MD Work Phone: [facility] 06-22-2022 10:59-0400 Heart rate 75 /min Frank Fuentes MD Work Phone: [facility] 06-22-2022 10:59-0400 Respiratory rate 16 /min Frank Fuentes MD Work Phone: [facility] 06-22-2022 10:59-0400 SaO2% (BldA) [Mass fraction] 95 % Frank Fuentes MD Work Phone: [facility] 06-22-2022 10:59-0400 Systolic blood pressure 118 mm[Hg] Frank Fuentes MD Work Phone: [facility] 03-19-2022 11:36-0500 Body temperature 97.39 [degF] Frank Fuentes MD Work Phone: [facility] 03-19-2022 11:36-0500 Body weight 73.57 kg Frank Fuentes MD Work Phone: [facility] 03-19-2022 11:36-0500 Diastolic blood pressure 60 mm[Hg] Frank Fuentes MD Work Phone: [facility] 03-19-2022 11:36-0500 Heart rate 60 /min Frank Fuentes MD Work Phone: [facility] 03-19-2022 11:36-0500 Respiratory rate 18 /min Frank Fuentes MD Work Phone: [facility] 03-19-2022 11:36-0500 SaO2% (BldA) [Mass fraction] 94 % Frank Fuentes MD Work Phone: [facility] 03-19-2022 11:36-0500 Systolic blood pressure 122 mm[Hg] Frank Fuentes MD Work Phone: [facility] 01-02-2022 15:29-0400 Body height 149.[address] Koko Fuentes Work Phone: [facility] Work Phone: 01-02-2022 15:29-0400 Body mass index (BMI) [Ratio] 33.3 kg/m2 Dr. Koko Fuentes Work Phone: [facility] Work Phone: 01-02-2022 15:29-0400 Body weight 74.[address] Koko Fuentes Work Phone: [facility] Work Phone: 01-02-2022 15:29-0400 Diastolic blood pressure 84 mm[Hg] Dr. Koko Fuentes Work Phone: [facility] Work Phone: 01-02-2022 15:29-0400 Heart rate 79 /min Dr. Koko Fuentes Work Phone: [facility] Work Phone: 01-02-2022 15:29-0400 Respiratory rate 16 /min Dr. Koko Fuentes Work Phone: [facility] Work Phone: 01-02-2022 15:29-0400 SaO2% (BldA) [Mass fraction] 95 % Dr. Koko Fuentes Work Phone: [facility] Work Phone: 01-02-2022 15:29-0400 Systolic blood pressure 142 mm[Hg] Dr. Koko Fuentes Work Phone: [facility] Work Phone: 12-19-2021 10:54-0400 Body weight 75.12 kg Frank Fuentes MD Work Phone: [facility] 12-19-2021 10:54-0400 Diastolic blood pressure 64 mm[Hg] Frank Fuentes MD Work Phone: [facility] 12-19-2021 10:54-0400 Heart rate 73 /min Frank Fuentes MD Work Phone: [facility] 12-19-2021 10:54-0400 Respiratory rate 16 /min Frank Fuentes MD Work Phone: [facility] 12-19-2021 10:54-0400 SaO2% (BldA) [Mass fraction] 95 % Frank Fuentes MD Work Phone: [facility] 12-19-2021 10:54-0400 Systolic blood pressure 130 mm[Hg] Frank Fuentes MD Work Phone: [facility] 06-17-2021 14:55-0400 Body weight 73.57 kg Frank Fuentes MD Work Phone: [facility] 06-17-2021 14:55-0400 Diastolic blood pressure 58 mm[Hg] Frank Fuentes MD Work Phone: [facility] 06-17-2021 14:55-0400 Heart rate 73 /min Frank Fuentes MD Work Phone: [facility] 06-17-2021 14:55-0400 Respiratory rate 16 /min Frank Fuentes MD Work Phone: [facility] 06-17-2021 14:55-0400 SaO2% (BldA) [Mass fraction] 96 % Frank Fuentes MD Work Phone: [facility] 06-17-2021 14:55-0400 Systolic blood pressure 110 mm[Hg] Frank Fuentes MD Work Phone: [facility] Encounters Encounter Date Encounter Type Care Provider Facility Start: 10-11-2024 Evaluation and management of inpatient Dr. Kyle Culver DO -Progressive Care Unit Work Phone: Start: 10-11-2024 End: 10-11-2024 ambulatory Frank Fuentes MD Work Phone: [facility] [place] Comment on above: Blood Sugar Elevatio n Start: 10-09-2024 End: 10-09-2024 ambulatory Navya Cervantes RN [employer] Comment on above: Bi-Weekly Outreach ( Recurring) for Chronic Disease Management Start: 10-09-2024 End: 10-09-2024 Telephone encounter Sarah Cormier APRN.CNP Work Phone: [facility] [place] Comment on above: blood pressure and b lood sugar readings Start: 10-06-2024 End: 10-06-2024 Patient encounter procedure Sarah Cormier APRN.CNP Work Phone: [facility] [place] Comment on above: Type 2 diabetes jim itus with stage 3b chronic kidney disease, without long-term current use of insulin (HCC); Essential (primary) hypertension Start: 10-06-2024 End: 10-06-2024 ambulatory FRANK FUENTES Facility:[facility] Start: 10-04-2024 End: 10-04-2024 Telephone encounter Frank Fuentes MD Work Phone: [facility] [place] Comment on above: blood pressure readi ngs, blood sugars Start: 09-28-2024 End: 09-29-2024 Follow-up encounter Frank Fuentes MD Work Phone: [facility] [place] Comment on above: Results Start: 09-27-2024 End: 09-27-2024 Telephone encounter Frank Fuentes MD Work Phone: [facility] Comment on above: Patient Update Start: 09-26-2024 End: 09-26-2024 Patient encounter procedure Frank Fuentes MD Work Phone: [facility] [place] Comment on above: Type 2 diabetes jim itus with stage 3b chronic kidney disease, without long-term current use of insulin (HCC) (Primary Dx); Urinary frequency; Acute cystitis without hematuria; Hypotension, unspecified hypotension type; Essential hypertension; Hypertensive kidney disease with stage 3b chronic kidney disease (HCC); Fall in home, initial encounter Start: 09-26-2024 End: 09-26-2024 ambulatory FRANK FUENTES Facility:[facility] Start: 09-21-2024 End: 09-21-2024 Patient encounter procedure Karolina Mcgee Work Phone: Podiatry Comment on above: Onychomycosis (Prima ry Dx); Pain in toe of right foot; Pain in toe of left foot; Type 2 diabetes mellitus without complication, without long-term current use of insulin (HCC) Start: 09-21-2024 End: 09-21-2024 ambulatory Latanya Paredes RN Work Phone: [employer] Comment on above: Bi-Weekly Outreach ( Recurring) for Chronic Disease Management Start: 09-19-2024 End: 09-19-2024 ambulatory FRANK FUENTES Facility:[facility] Start: 09-07-2024 End: 09-07-2024 ambulatory Linda Almeida RN Work Phone: [employer] Comment on above: Bi-Weekly Outreach ( Recurring) for Chronic Disease Management Start: 09-04-2024 End: 09-05-2024 Refill Frank Fuentes MD Work Phone: [facility] [place] Comment on above: Refill Request Start: 08-24-2024 End: 08-24-2024 ambulatory Lukasz Matos RN [employer] Comment on above: Bi-Weekly Outreach ( Recurring) for Chronic Disease Management Start: 08-21-2024 End: 08-21-[address] Safia Montgomery DO -Laboratory Work Phone: Start: 08-21-2024 End: 08-22-2024 Refill Frank Fuentes MD Work Phone: [facility] Comment on above: Refill Request blood sugar readings Start: 08-21-2024 End: 08-21-2024 ambulatory Safia Montgomery Facility:[facility] Start: 08-15-2024 End: 08-15-2024 Refill Frank Fuentes MD Work Phone: [facility] Comment on above: Refill Request Start: 07-31-2024 End: 07-31-2024 Refill Frank Fuentes MD Work Phone: [facility] Comment on above: Refill Request Start: 07-11-2024 End: 07-11-2024 Patient encounter procedure Frank Fuentes MD Work Phone: [facility] Comment on above: Mild cognitive impai rment (Primary Dx); Type 2 diabetes mellitus with stage 3b chronic kidney disease, without long-term current use of insulin (HCC); Vitamin D deficiency Start: 07-11-2024 End: 07-11-2024 ambulatory FRANK FUENTES Facility:[facility] Start: 06-27-2024 End: 08-27-2024 Follow-up encounter Cesar Crouch RN Work Phone: [employer] Comment on above: 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 - C hronic Care (cdm - follow up ) Bi-Weekly Outreach (Recurring) for Chronic Disease Management Start: 06-27-2024 End: 06-27-2024 Patient encounter procedure Frank Fuentes MD Work Phone: [facility] Comment on above: Type 2 diabetes jim itus with stage 3b chronic kidney disease, without long-term current use of insulin (HCC) (Primary Dx); Essential hypertension; Mixed hyperlipidemia; ASHD (arteriosclerotic heart disease); Presence of 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; Recurrent major depressive disorder, in full remission; Hypertensive kidney disease with stage 3b chronic kidney disease (HCC); Acquired hypothyroidism; Memory loss; Encounter for immunization Start: 06-27-2024 End: 06-27-2024 ambulatory Cesar Crouch RN Work Phone: [employer] Start: 06-23-2024 End: 06-23-2024 ambulatory FRANK FUENTES Facility:[facility] Start: 06-22-2024 End: 06-22-2024 ambulatory KAROLINA MCGEE Facility:[facility] Start: 06-22-2024 End: 06-22-2024 Patient encounter procedure Karolina Mcgee Work Phone: Podiatry Comment on above: Onychomycosis (Prima ry Dx); Pain in toe of right foot; Pain in toe of left foot; Type 2 diabetes mellitus without complication, without long-term current use of insulin (HCC); Hammer toe of right foot; Acquired hallux valgus of right foot; Acquired hallux valgus of left foot; Callus Start: 06-13-2024 End: 06-14-2024 ambulatory Cesar Crouch RN Work Phone: [employer] Comment on above: Initial enrollment o braden for Chronic Disease Management Start: 06-02-2024 End: 06-02-2024 Refill Frank Fuentes MD Work Phone: [facility] [place] Comment on above: Refill Request Start: 05-30-2024 End: 05-30-2024 [facility] Start: 05-30-2024 End: 05-30-2024 Patient encounter procedure Haven Rios MA [facility] Comment on above: Population Health Na vigation Outreach (ACO- HIGH RISK- ATTEMPT 1) Start: 05-01-2024 End: 05-01-2024 Refill Frank Fuentes MD Work Phone: [facility] [place] Comment on above: Refill Request Start: 04-27-2024 End: 04-27-2024 Patient encounter procedure David CHEN -[facility] Work Phone: Start: 04-27-2024 End: 04-27-2024 ambulatory Koko Fuentes [facility] Start: 03-30-2024 End: 03-30-2024 Telephone encounter Frank Fuentes MD Work Phone: [facility] [place] Comment on above: Results Start: 03-29-2024 End: 03-29-2024 Patient encounter procedure Frank Fuentes MD Work Phone: [facility] [place] Comment on above: Type 2 diabetes jim itus with stage 3b chronic kidney disease, without long-term current use of insulin (HCC) (Primary Dx); Essential hypertension; Mixed hyperlipidemia; Acquired hypothyroidism; ASHD (arteriosclerotic heart disease); Stage 3b chronic kidney disease (HCC); Recurrent major depressive disorder, in full remission (HCC) Start: 03-29-2024 End: 03-29-2024 ambulatory FRANK FUENTES Facility:[facility] Start: 03-21-2024 End: 03-21-2024 ambulatory KAROLINA MCGEE Facility:[facility] Start: 03-21-2024 End: 03-21-2024 Patient encounter procedure Karolina Testdino Work Phone: Podiatry Comment on above: Onychomycosis (Prima ry Dx); Pain in toe of right foot; Pain in toe of left foot; Type 2 diabetes mellitus without complication, without long-term current use of insulin (HCC); Hammer toe of right foot Start: 03-13-2024 End: 03-13-2024 Refill Frank Fuentes MD Work Phone: [facility] [place] Comment on above: Refill Request Start: 03-03-2024 End: 03-03-2024 Refill Frank Fuentes MD Work Phone: [facility] [place] Comment on above: Refill Request Start: 02-21-2024 End: 02-22-2024 Refill Frank Fuentes MD Work Phone: [facility] [place] Comment on above: Refill Request Start: 02-15-2024 End: 02-15-2024 Refill Frank Fuentes MD Work Phone: [facility] [place] Comment on above: Refill Request Start: 01-31-2024 End: 01-31-2024 Refill Frank Fuentes MD Work Phone: [facility] Comment on above: Refill Request Start: 01-06-2024 End: 01-06-2024 ambulatory Safia Lee Facility:[facility] Start: 12-29-2023 End: 12-29-2023 Telephone encounter Frank Fuentes MD Work Phone: [facility] Comment on above: Results Start: 12-28-2023 End: 12-28-2023 Patient encounter procedure Frank Fuentes MD Work Phone: [facility] Comment on above: Type 2 diabetes jim itus with stage 3b chronic kidney disease, without long-term current use of insulin (HCC) (Primary Dx); Essential hypertension; Mixed hyperlipidemia; Encounter for immunization Start: 12-28-2023 End: 12-28-2023 ambulatory FRANK FUENTES Facility:[facility] Start: 12-14-2023 End: 12-14-2023 Refill Frank Fuentes MD Work Phone: [facility] Comment on above: Refill Request Start: 12-03-2023 End: 12-03-2023 ambulatory FRANK FUENTES Facility:[facility] Start: 12-03-2023 End: 12-03-2023 Patient encounter procedure Karolina Arely Work Phone: Podiatry Comment on above: Onychomycosis (Prima ry Dx); Pain in toe of right foot; Pain in toe of left foot; Type 2 diabetes mellitus without complication, without long-term current use of insulin (HCC); Hammer toe of right foot Start: 11-22-2023 End: 11-22-2023 Telephone encounter Frank uFentes MD Work Phone: [facility] Comment on above: Refill Request Start: 11-01-2023 End: 11-01-2023 Refill Frank Fuentes MD Work Phone: [facility] Comment on above: Refill Request Start: 10-07-2023 ambulatory Dorothy Cody [employer] Facili ty:[facility] Start: 10-06-2023 ambulatory Dorothy Cody NP Facili ty:[facility] Start: 10-06-2023 End: 10-06-2023 ambulatory Dorothy Cody [employer] Facility:[facility] Start: 09-24-2023 Telephone encounter Koko Fuentes MD Work Phone: [facility] Comment on above: Results Pharmacy Call Start: 09-23-2023 Telephone encounter Mary Carrillo Start: 09-22-2023 End: 09-22-2023 Subsequent hospital visit by physician Romina [facility] Work Phone: Radiology Comment on above: Decreased breath toribio nds of both lungs [R09.89] Start: 09-22-2023 End: 09-22-2023 Patient encounter procedure Frank Fuentes MD Work Phone: [facility] Comment on above: Type 2 diabetes jim itus with stage 3b chronic kidney disease, without long-term current use of insulin (HCC) (Primary Dx); Essential hypertension; Mixed hyperlipidemia; Stage 3b chronic kidney disease (HCC); Acquired hypothyroidism; ASHD (arteriosclerotic heart disease); Presence of 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; Recurrent major depressive disorder, in full remission (HCC); Decreased breath sounds of both lungs Start: 09-14-2023 End: 09-14-2023 ambulatory Koko Fuentes Facility:[facility] Start: 09-14-2023 End: 09-14-2023 ambulatory Dorothy Cody [employer] CUSTODIAN Facility:[facility] Start: 09-06-2023 Refill Frank Fuentes MD Work Phone: [facility] Comment on above: Refill Request Start: 08-16-2023 Refill Frank Fuentes MD Work Phone: [facility] Comment on above: Refill Request Start: 08-04-2023 Refill Frank Fuentes MD Work Phone: [facility] Comment on above: Refill Request Start: 06-29-2023 Telephone encounter Koko Fuentes MD Work Phone: [facility] Comment on above: Results Start: 06-25-2023 End: 06-25-2023 Patient encounter procedure Karolina Mcgee Work Phone: Podiatry Comment on above: Onychomycosis (Prima ry Dx); Pain in toe of right foot; Pain in toe of left foot; Type 2 diabetes mellitus without complication, without long-term current use of insulin (HCC); Acquired hallux valgus of right foot; Hammer toe of right foot Start: 06-23-2023 End: 06-23-2023 Patient encounter procedure Frank Fuentes MD Work Phone: [facility] [place] Comment on above: Type 2 diabetes jim itus without complication, without long- term current use of insulin (HCC) (Primary Dx); Essential hypertension; Stage 3b chronic kidney disease (HCC); Acquired hypothyroidism; Recurrent major depressive disorder, in full remission (HCC); Type 2 diabetes mellitus with stage 3b chronic kidney disease, without long-term current use of insulin (HCC) Start: 06-21-2023 Refill Frank Fuentes MD Work Phone: [facility] [place] Comment on above: Refill Request Start: 05-24-2023 Refill Frank Fuentes MD Work Phone: Family [facility] [place] Comment on above: Refill Request Start: 04-20-2023 Refill Frank Fuentes MD Work Phone: Family [facility] [place] Comment on above: Refill Request Start: 03-03-2023 Telephone encounter Koko Fuentes MD Work Phone: Family [facility] [place] Comment on above: Results Start: 02-22-2023 ambulatory Brittany jung RN Work Phone: [facility] Start: 02-22-2023 Follow-up encounter Brittany arellano RN Work Phone: [employer] Comment on above: Transition Of Care ( TCM follow up [facility] Discharge 02/08/23/) Start: 02-19-2023 End: 02-19-2023 ambulatory NIMESH PHILLIPS Facility:[facility] Start: 02-19-2023 End: 02-19-2023 Patient encounter procedure Nimesh Phillips MD Work Phone: [facility] Comment on above: Subdural hematoma (H CC) (Primary Dx) Start: 02-19-2023 End: 02-19-2023 Subsequent hospital visit by physician [facility] CT [employer] Comment on above: Nontraumatic subarac hnoid hemorrhage (HCC) [I60.9] Start: 02-16-2023 ambulatory Denille Ayaka jung RN Work Phone: [facility] Start: 02-16-2023 Follow-up encounter Brittany arellano RN Work Phone: [employer] Comment on above: Transition Of Care ( TCM follow up [facility] Discharge 02/08/23/) Start: 02-16-2023 Telephone encounter Koko Fuentes MD Work Phone: [facility] [place] Comment on above: Results Start: 02-15-2023 End: 02-15-2023 Subsequent hospital visit by physician Xr [facility] [place] Work Phone: Radiology Comment on above: Acute on chronic naheed stolic congestive heart failure (HCC) [I50.33] Start: 02-15-2023 End: 02-15-2023 Patient encounter procedure Frank Fuentes MD Work Phone: [facility] [place] Comment on above: Subdural hematoma (H CC) (Primary Dx); Fall in home, subsequent encounter; Acute on chronic diastolic congestive heart failure (HCC); Bilateral rales; Bilateral impacted cerumen; Hospital discharge follow-up Start: 02-10-2023 Telephone encounter Koko Fuentes MD Work Phone: [facility] [place] Comment on above: Appointment Start: 02-09-2023 Patient Outreach Sarah Hawkins RP h Work Phone: Pharmacy Comment on above: Transition Of Care ( TCM Pharmacy-Hospital discharge 02/08/23 ) Start: 02-07-2023 Orders Only Laurita mills PA-C Work Phone: [place] [facility] Comment on above: Nontraumatic subarac hnoid hemorrhage (HCC) (Primary Dx) Start: 02-06-2023 End: 02-08-2023 Evaluation and management of inpatient NIKOLAY OLIVA Facility:[facility] Start: 01-30-2023 Non-patient / Non-visit Dr. Eduin Fuentes Work Phone: [facility] Work Phone: Start: 01-29-2023 Non-patient / Non-visit Dr. Eduin Fuentes Work Phone: [facility] Work Phone: Start: 01-29-2023 Non-patient / Non-visit Dr. Eduin Fuentes Work Phone: [facility] Start: 01-28-2023 Non-patient / Non-visit Dr. Eduin Fuentes Work Phone: [facility] Work Phone: Start: 01-28-2023 End: 01-31-2023 Evaluation and management of inpatient [facility] Work Phone: Start: 01-28-2023 ambulatory Frank Fuentes MD Work Phone: [facility] Comment on above: Shortness of Breath Start: 12-23-2022 Telephone encounter Sarah oroczo APRN.CAR REFINISHER Work Phone: [facility] Start: 12-23-2022 End: 12-23-[address] Koko Fuentes Work Phone: [facility] Work Phone: Start: 12-23-2022 End: 12-23-[address] Koko Fuentes Work Phone: [facility] Work Phone: Start: 12-22-2022 End: 12-22-2022 Patient encounter procedure Frank Fuentes MD Work Phone: [facility] Comment on above: Type 2 diabetes jim itus without complication, without long- term current use of insulin (HCC) (Primary Dx); Essential hypertension; Stage 3b chronic kidney disease (HCC); Mixed hyperlipidemia; Acquired hypothyroidism; ASHD (arteriosclerotic heart disease); Gastroesophageal reflux disease, unspecified whether esophagitis present; Need for vaccination; Encounter for immunization Start: 12-14-2022 Refill Frank Fuentes MD Work Phone: [facility] Comment on above: Refill Request Start: 12-02-2022 End: 12-02-2022 Patient encounter procedure Karolina Mcgee Work Phone: Podiatry Comment on above: Onychomycosis (Prima ry Dx); Pain in toe of right foot; Pain in toe of left foot; Type 2 diabetes mellitus without complication, without long-term current use of insulin (HCC) Start: 10-12-2022 Refill Frank Fuentes MD Work Phone: [facility] Comment on above: Refill Request Start: 09-25-2022 Telephone encounter Sarah orozco APRN.CAR REFINISHER Work Phone: [facility] Comment on above: Results Start: 09-22-2022 End: 09-22-2022 Patient encounter procedure Sarah Cormier APRN.CAR REFINISHER Work Phone: [facility] Comment on above: Type 2 diabetes jim itus without complication, without long- term current use of insulin (HCC) (Primary Dx); Acquired hypothyroidism; ASHD (arteriosclerotic heart disease); Essential hypertension; Stage 3b chronic kidney disease (HCC) Start: 09-21-2022 End: 09-21-[address] Koko Fuentes Work Phone: [facility] Work Phone: Start: 09-07-2022 Refill Frank Fuentes MD Work Phone: [facility] Comment on above: Refill Request Start: 08-28-2022 End: 08-28-2022 Patient encounter procedure Karolina Mcgee Work Phone: Podiatry Comment on above: Onychomycosis (Prima ry Dx); Pain in toe of right foot; Pain in toe of left foot; Type 2 diabetes mellitus without complication, without long-term current use of insulin (HCC); Acquired hallux valgus of left foot; Acquired hallux valgus of right foot; Callus; Hammer toe of right foot Start: 08-13-2022 Refill Frank Fuentes MD Work Phone: [facility] Comment on above: Refill Request Start: 07-13-2022 Refill Frank Fuentes MD Work Phone: [facility] Comment on above: Refill Request Start: 06-23-2022 Telephone encounter Koko Fuentes MD Work Phone: [facility] Comment on above: Results Start: 06-22-2022 End: 06-22-2022 Patient encounter procedure Frank Fuentes MD Work Phone: [facility] Comment on above: Type 2 diabetes jim itus without complication, without long- term current use of insulin (HCC) (Primary Dx); Hypertensive kidney disease with stage 4 chronic kidney disease (HCC); Acquired hypothyroidism; 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; Mixed hyperlipidemia; Falling episodes; Dog bite, initial encounter; Recurrent major depressive disorder, in full remission (HCC); Type 2 diabetes mellitus with stage 3b chronic kidney disease, without long-term current use of insulin (HCC); Chronic kidney disease, stage 3b (HCC) Start: 06-15-2022 Refill Frank Fuentes MD Work Phone: [facility] Comment on above: Refill Request Start: 06-11-2022 Telephone encounter Koko Fuentes MD Work Phone: [facility] Comment on above: Patient Request Start: 06-01-2022 Refill Frank Fuentes MD Work Phone: [facility] Comment on above: Refill Request Start: 05-21-2022 End: 05-21-2022 [facility] Work Phone: Start: 05-21-2022 End: 05-21-2022 Patient encounter procedure [facility] Phy Office 3rd Flr Start: 05-14-2022 End: 05-14-2022 ambulatory [facility] Work Phone: Start: 05-14-2022 End: 05-14-2022 Patient encounter procedure [facility] Start: 05-13-2022 End: 05-13-2022 Patient encounter procedure Karolina Mcgee Work Phone: Podiatry Comment on above: Onychomycosis (Prima ry Dx); Pain in toe of right foot; Pain in toe of left foot; Type 2 diabetes mellitus without complication, without long-term current use of insulin (HCC); Acquired hallux valgus of left foot; Acquired hallux valgus of right foot; Callus Start: 03-19-2022 End: 03-19-2022 Patient encounter procedure Frank Fuentes MD Work Phone: [facility] Comment on above: Dysuria (Primary Dx) Start: 02-23-2022 Telephone encounter Koko Fuentes MD Work Phone: [facility] Comment on above: Orders Appointment; Orders Start: 01-05-2022 End: 01-05-[address] Koko Fuentes Work Phone: [facility] Work Phone: Start: 01-05-2022 End: 01-05-[address] Koko Fuentes Work Phone: [facility] Start: 01-02-2022 End: 01-02-[address] Koko Fuentes Work Phone: [facility] Start: 12-24-2021 Refill Frank Fuentes MD Work Phone: [facility] Comment on above: Refill Request Start: 12-22-2021 Telephone encounter Koko Fuentes MD Work Phone: [facility] [place] Comment on above: Results Start: 12-19-2021 End: 12-19-2021 Patient encounter procedure Frank Fuentes MD Work Phone: [facility] Comment on above: Type 2 diabetes jim itus without complication, without long- term current use of insulin (HCC) (Primary Dx); Essential hypertension; Chronic kidney disease (CKD), stage IV (severe) (HCC); Acquired hypothyroidism; 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; Recurrent major depressive disorder, in full remission ([facility]); Actinic keratosis; Unsteady gait; Fall in home, initial encounter; Need for influenza vaccination; Need for COVID-19 vaccine Start: 12-15-2021 End: 12-15-2021 Patient encounter procedure Karolina Mcgee Work Phone: Podiatry Comment on above: Onychomycosis (Prima ry Dx); Pain in toe of right foot; Pain in toe of left foot; Type 2 diabetes mellitus without complication, without long-term current use of insulin ([facility]) Start: 10-27-2021 Refill Frank Fuentes MD Work Phone: [facility] Comment on above: Refill Request Start: 09-23-2021 End: 09-23-2021 Patient encounter procedure [facility] Start: 09-16-2021 Refill Frank Fuentes MD Work Phone: [facility] Comment on above: Refill Request Start: 09-09-2021 Refill Frank Fuentes MD Work Phone: [facility] Comment on above: Refill Request Start: 09-05-2021 End: 09-05-2021 Patient encounter procedure Karolina Mcgee Work Phone: Podiatry Comment on above: Onychomycosis (Prima ry Dx); Pain in toe of right foot; Pain in toe of left foot; Type 2 diabetes mellitus without complication, without long-term current use of insulin (HCC) Start: 08-18-2021 Refill Frank Fuentes MD Work Phone: [facility] Comment on above: Prescription Refills Start: 08-04-2021 Refill Frank Fuentes MD Work Phone: [facility] Comment on above: Refill Request Start: 06-23-2021 Refill Frank Fuentes MD Work Phone: [facility] [place] Comment on above: Refill Request Start: 06-17-2021 End: 06-17-2021 Patient encounter procedure Frank Fuentes MD Work Phone: [facility] [place] Comment on above: Controlled type 2 di abetes mellitus with stage 4 chronic kidney disease, without long-term current use of insulin (HCC) (Primary Dx); Chronic kidney disease (CKD), stage IV (severe) (HCC); Essential hypertension; Mixed hyperlipidemia; Acquired hypothyroidism; ASHD (arteriosclerotic heart disease); Fall in shower Start: 08-30-2014 End: 12-30-2016 Patient encounter procedure Frank Fuentes MD Work Phone: [facility] Procedures Date Procedure Procedure Detail Performing Clinician Start: 10-11-2024 Urnls dip stick/tabl et reagent auto microscopy Dr. Koko Fuentes MD Work Phone: Start: 10-11-2024 Plain chest X-ray Dr. Nabeel Fuentes MD Work Phone: Start: 09-26-2024 Urnls dip stick/tabl et rgnt auto w/o microscopy Frank Fuentes MD Work Phone: Start: 08-21-[address] Koko Fuentes MD Work Phone: Start: 08-21-2024 [address] inorganic phosphate measurement [address] Koko Fuentes MD Work Phone: Start: 06-27-2024 PFIZER-BIONTECH COVI D-19 VACCINE AGE 12+ YR ([facility]) Frank Fuentes MD Work Phone: Start: 12-28-2023 PFIZER-BIONTECH COVI D-19 VACCINE AGE 12+ YR [facility] Frank Fuentes MD Work Phone: Start: 09-22-2023 Radiologic exam ches t 2 views Frank Fuentes MD Work Phone: Start: 02-15-2023 Radiologic exam ches t 2 views Frank Fuentes MD Work Phone: Start: 01-28-2023 Plain chest X-ray Start: 01-28-[address] Koko Fuentes Work Phone: Start: 01-28-2023 SARS-CoV-2 & FLU Ant igen (Rapid) Start: 01-28-[address] Jacob Fuentes Work Phone: Start: 12-22-2022 INFLUENZA VACCINE, P RSV FREE, AGE 65+ YR, HIGH DOSE, QUADRIVALENT (FLUZONE HIGH-DOSE) Frank Fuentes MD Work Phone: Start: 12-22-2022 PFIZER-BIONTECH COVI D-19 VACCINE (2022- SEASON) AGE 12+ YR Frank Fuentes MD Work Phone: Start: 03-19-2022 Urnls dip stick/tabl et rgnt auto w/o microscopy Frank Fuentes MD Work Phone: Start: 12-19-2021 PFIZER-BIONTECH COVI D-19 BIVALENT BOOSTER VACCINE, AGE 12+ YR Frank Fuentes MD Work Phone: Start: 12-19-2021 INFLUENZA SEASONAL QUADRIVALENT HIGH DOSE AGE 65+ Frank Fuentes MD Work Phone: Start: 11-20-2011 History of placement of stent for coronary artery disease History of coronary artery stent placement David Walter [employer]OX CUSTODIANMauricioC Comment on above: PCI-Stent- RCA w/ 3. 0 x 24 mm Mammography Supervisor Stent 08/27/2005; PCI-RIANA-RCA w/ 3.0 x 32 mm Taxus 06/21/2006; PCI-RIANA-RCA 3.0 x 28mm Promus 06/26/2009; BFQ-SYR-Cxoz-Mid RCA w/ 3.0 x 20 mm Promus Element and 3.0 x 16 mm Promus Element 11/20/2011; Plan of Treatment Date Care Activity Detail Author Start: 06-22-2032 Urine microalbumin profile [facility] Start: 04-21-2028 Urine microalbumin profile DTAP,TDAP,TD (5 - Td or Tdap) [facility] Start: 09-26-2025 RSV Vaccine (1 - 1-d ose 75+ series) RSV Vaccine (1 - 1-dose 75+ series) [facility] Comment on above: Postponed from 04/22 (Declined at this time) Start: 06-30-2025 Glaucoma screening Dilated Retinal E xam [facility] Start: 06-27-2025 Shingrix Vaccine (1 of 2) Leyva grix Vaccine (1 of 2) [facility] Comment on above: Postponed from 04/22 (Declined at this time) Start: 06-23-2025 Hepatitis B screening Urine Albumin:Creatinine Ratio [facility] Start: 06-23-2025 Hepatitis B surface antibody level LDL Cholesterol [facility] Start: 06-22-2025 Diabetic foot examination Diabetic F oot Exam [facility] Start: 12-26-2024 End: 12-26-2024 Patient encounter procedure 12/26/2024 1:00 PM EDT Office Visit Podiatry [address] [place], [place] [address] Karolina Mcgee [address] [place] [address] 3 month follow up nail care Podiatry Comment on above: 3 month follow up na nv care Start: 12-20-2024 Hemoglobin A1c measurement HbA1C [facility] Start: 11-13-2024 Influenza vaccination Influenza Vacc ine (#1) [facility] Start: 10-24-2024 End: 10-24-2024 Patient encounter procedure 10/24/2024 11:40 AM EDT Office Visit Family [facility] [address] [place] [address] Frank Fuentes MD [address] [place] [address] 4 week follow up DM [facility] [place] Comment on above: 4 week follow up DM Start: 10-12-2024 [facility] Start: 10-12-2024 Complete blood count [facility] Start: 10-11-2024 Ambulation without limitation [facility] Start: 10-11-2024 Assessment of risk o f venous thromboembolism [facility] Start: 10-11-2024 Care regimes management [facility] Start: 10-11-2024 Complete ultrasound of kidneys and bladder Kidney and Bladder [facility] Start: 10-11-2024 Incentive spirometry [facility] Start: 10-11-2024 Insertion of cathete r into peripheral vein [facility] Start: 10-11-2024 Measuring intake and output [facility] Start: 10-11-2024 Notification of physician [facility] Start: 10-11-2024 Oxygen therapy [facility] Start: 10-11-2024 Providing care accor ding to standard [facility] Start: 10-11-2024 Referral to service [facility] Start: 10-11-2024 End: 10-11-2024 [facility] Start: 10-11-2024 Verification routine [facility] Start: 10-11-2024 CT Chest WO contrast [facility] Start: 10-11-2024 CT of chest without contrast Chest without Contrast [facility] Start: 10-11-2024 Folic acid measureme nt, RBC [facility] Start: 10-11-2024 Admission procedure [facility] Start: 10-11-2024 Vitamin B12 measurement [facility] Start: 10-11-2024 [facility] Start: 10-11-2024 Bacteria identified in Urine by Culture Urine Culture [facility] Start: 10-05-2024 End: 10-05-2024 Patient encounter procedure 10/05/2024 10:00 AM EDT Office Visit [facility] [place] [address] [place] [address] PodlogSarah alaniz APRN.CAR REFINISHER [address] [place] [address] BP check [facility] [place] Comment on above: BP check Start: 09-26-2024 End: 09-26-2024 Patient encounter procedure 09/26/2024 1:40 PM EDT Office Visit [facility] [place] [address] [place] [address] Frank Fuentes MD [address] [place] [address] 3 month follow routine [facility] [place] Comment on above: 3 month follow routi ne Start: 09-22-2024 End: 12-22-2024 25-hydroxyvitamin D3 [Mass/volume] in Serum or Plasma VITAMIN D 25 HYDROXY Lab Routine Mild cognitive impairment Vitamin D deficiency Expected: 09/22/2024, Expires: 12/22/2024 [facility] Comment on above: Expected: 09/22/2024 , Expires: 12/22/2024 Start: 09-22-2024 End: 12-22-2024 Cobalamin (Vitamin B12) [Mass/volume] in Serum or Plasma VITAMIN B12 Lab Routine Mild cognitive impairment Expected: 09/22/2024, Expires: 12/22/2024 [facility] Comment on above: Expected: 09/22/2024 , Expires: 12/22/2024 Start: 09-22-2024 End: 12-22-2024 Comprehensive metabolic 2000 panel - Serum or Plasma COMPREHENSIVE METABOLIC PANEL Lab Routine Type 2 diabetes mellitus with stage 3b chronic kidney disease, without long-term current use of insulin (HCC) Expected: 09/22/2024, Expires: 12/22/2024 [facility] Comment on above: Expected: 09/22/2024 , Expires: 12/22/2024 Start: 09-22-2024 End: 12-22-2024 Hemoglobin A1c in Blood HEMOGLOBIN A1C Lab Routine Type 2 diabetes mellitus with stage 3b chronic kidney disease, without long-term current use of insulin (HCC) Expected: 09/22/2024, Expires: 12/22/2024 [facility] Work Phone: Comment on above: Expected: 09/22/2024 , Expires: 12/22/2024 Start: 09-22-2024 Hemoglobin A1c measurement HbA1C [facility] Start: 09-21-2024 Covid-19 Vaccine () Covid-19 Vaccine () [facility] Comment on above: Postponed from 04/24 (Declined at this time) Start: 09-21-2024 Covid-19 Vaccine () Covid-19 Vaccine () [facility] Comment on above: Postponed from 04/24 (Declined at this time) Start: 09-21-2024 RSV Vaccine (1 - 1-d ose 60+ series) RSV Vaccine (1 - 1-dose 60+ series) [facility] Comment on above: Postponed from 04/22 (Declined at this time) Start: 09-21-2024 RSV Vaccine (1 - 1-d ose 75+ series) RSV Vaccine (1 - 1-dose 75+ series) [facility] Comment on above: Postponed from 04/22 (Declined at this time) Start: 09-21-2024 End: 09-21-2024 Patient encounter procedure 09/21/2024 1:00 PM EDT Office Visit Podiatry [address] [place] [address] Karolina Mcgee [address] [place], [place] [address] 3 month follow up nail care Podiatry Comment on above: 3 month follow up na il care Start: 07-11-2024 End: 07-11-2024 Patient encounter procedure 07/11/2024 1:40 PM EDT Office Visit [facility] [place] [address] [place] [address] Frank Fuentes MD [address] [place] [address] 2 week follow up abnormal mini cog [facility] [place] Comment on above: 2 week follow up abn ormal mini cog Start: 06-27-2024 Covid-19 Vaccine () Covid-19 Vaccine () [facility] Start: 06-27-2024 Glaucoma screening Dilated Retinal E xam [facility] Comment on above: Postponed from 06/24 (Currently Scheduled) Start: 06-27-2024 Hemoglobin A1c measurement HbA1C [facility] Start: 06-27-2024 Hepatitis B screening Urine Albumin:Creatinine Ratio [facility] Comment on above: Postponed from 06/23 (Currently Scheduled) Start: 06-27-2024 End: 06-27-2024 Patient encounter procedure 06/27/2024 12:40 PM EDT Office Visit [facility] [place] [address] [place], [place] [id number] Frank Fuentes MD [address] [place] [address] 3 month follow up [facility] [place] Comment on above: 3 month follow up Start: 06-24-2024 Glaucoma screening Dilated Retinal E xam [facility] Start: 06-23-2024 Hepatitis B screening Urine Albumin:Creatinine Ratio [facility] Start: 06-23-2024 Hepatitis B surface antibody level LDL Cholesterol [facility] Start: 06-22-2024 Diabetic foot examination Diabetic F oot Exam [facility] Start: 06-22-2024 End: 06-22-2024 Patient encounter procedure Podiatry Comment on above: 3 month follow up na nv care Start: 06-14-2024 End: 09-13-2024 Comprehensive metabolic 2000 panel - Serum or Plasma COMPREHENSIVE METABOLIC PANEL Lab Routine Type 2 diabetes mellitus with stage 3b chronic kidney disease, without long-term current use of insulin (HCC) Expected: 06/14/2024, Expires: 09/13/2024 [facility] Work Phone: Comment on above: Expected: 06/14/2024 , Expires: 09/13/2024 Start: 06-14-2024 End: 09-13-2024 Hemoglobin A1c in Blood HEMOGLOBIN A1C Lab Routine Type 2 diabetes mellitus with stage 3b chronic kidney disease, without long-term current use of insulin (HCC) Expected: 06/14/2024, Expires: 09/13/2024 [facility] Comment on above: Expected: 06/14/2024 , Expires: 09/13/2024 Start: 06-14-2024 End: 09-13-2024 LIPID PANEL, NONFASTING LIPID PANEL, NONFASTING Lab Routine Type 2 diabetes mellitus with stage 3b chronic kidney disease, without long-term current use of insulin (HCC) Expected: 06/14/2024, Expires: 09/13/2024 [facility] Comment on above: Expected: 06/14/2024 , Expires: 09/13/2024 Start: 06-14-2024 End: 09-13-2024 Microalbumin/Creatinine [Mass Ratio] in Urine ALBUMIN/CREATININE RATIO, URINE Lab Routine Type 2 diabetes mellitus with stage 3b chronic kidney disease, without long-term current use of insulin (HCC) Expected: 06/14/2024, Expires: 09/13/2024 [facility] Comment on above: Expected: 06/14/2024 , Expires: 09/13/2024 Start: 03-29-2024 End: 06-28-2024 Comprehensive metabolic 2000 panel - Serum or Plasma [facility] Comment on above: Expected: 03/29/2024 , Expires: 06/28/2024 Start: 03-29-2024 End: 06-28-2024 Hemoglobin A1c in Blood [facility] Work Phone: Comment on above: Expected: 03/29/2024 , Expires: 06/28/2024 Start: 03-29-2024 Hemoglobin A1c measurement HbA1C [facility] Start: 03-29-2024 End: 03-29-2024 Patient encounter procedure Family Hailey Nieves Comment on above: 3 month follow up Start: 03-21-2024 End: 03-21-2024 Patient encounter procedure Podiatry Comment on above: 3 month follow up na [facility] Start: 03-15-2024 Advance Directive Discussion Advance Directive Discussion [facility] Start: 01-05-2024 Glaucoma screening Dilated Retinal E xam [facility] Start: 01-05-2024 Hepatitis C antibody , confirmatory test Dilated Retinal Exam [facility] Start: 12-28-2023 End: 12-28-2023 Patient encounter procedure 12/28/2023 2:00 PM EDT Office Visit Family Hailey Nieves [address] [place] [id number] Frank Fuentes MD [address] [place] [id number] 3 month follow up- chest xray and labs Family Medicine Ezequiel Comment on above: 3 month follow up- c hest xray and labs Start: 12-25-2023 End: 03-25-2024 Comprehensive metabolic 2000 panel - Serum or Plasma COMPREHENSIVE METABOLIC PANEL Lab Routine Type 2 diabetes mellitus without complication, without long-term current use of insulin (HCC) Expected: 12/25/2023, Expires: 03/25/2024 [facility] Comment on above: Expected: 12/25/2023 , Expires: 03/25/2024 Start: 12-25-2023 End: 03-25-2024 Hemoglobin A1c in Blood HEMOGLOBIN A1C Lab Routine Type 2 diabetes mellitus without complication, without long-term current use of insulin (HCC) Expected: 12/25/2023, Expires: 03/25/2024 [facility] Work Phone: Comment on above: Expected: 12/25/2023 , Expires: 03/25/2024 Start: 12-23-2023 Hemoglobin A1c measurement HbA1C [facility] Start: 12-23-2023 Hepatitis B Vaccine (1 of 3 - Risk 3-dose series) Hepatitis B Vaccine (1 of 3 - Risk 3-dose series) [facility] Comment on above: Postponed from 04/22 (Declined at this time) Start: 12-23-2023 Shingrix Vaccine (1 of 2) Leyva grix Vaccine (1 of 2) [facility] Comment on above: Postponed from 04/22 (Declined at this time) Start: 12-03-2023 End: 12-03-2023 Patient encounter procedure 12/03/2023 1:40 PM EDT Office Visit Podiatry [address] [place] [address] Karolina Mcgee [address] [place], [place] [id number] DIABETIC FOOT CARE Podiatry Comment on above: DIABETIC FOOT CARE Start: 11-14-2023 Covid-19 Vaccine () Covid-19 Vaccine () [facility] Start: 11-14-2023 Covid-19 Vaccine ( season) Covid-19 Vaccine () [facility] Start: 11-14-2023 Influenza vaccination Influenza Vacc ine (#1) [facility] Start: 09-24-2023 End: 09-24-2023 Patient encounter procedure 09/24/2023 2:40 PM EDT Office Visit Podiatry [address] [place], [place] [id number] Karolina Mcgee [address] [place] [address] 3 month follow up nail care Podiatry Comment on above: 3 month follow up na il care Start: 09-23-2023 Hemoglobin A1c measurement HbA1C [facility] Start: 09-22-2023 End: 12-22-2023 Comprehensive metabolic 2000 panel - Serum or Plasma [facility] Comment on above: Expected: 09/22/2023 , Expires: 12/22/2023 Start: 09-22-2023 End: 12-22-2023 Hemoglobin A1c in Blood [facility] Work Phone: Comment on above: Expected: 09/22/2023 , Expires: 12/22/2023 Start: 09-22-2023 Hemoglobin A1c measurement HbA1C [facility] Start: 09-22-2023 End: 09-22-2023 Patient encounter procedure 09/22/2023 2:00 PM EDT Office Visit Family Hailey Nieves [address] [place], [place] [id number] Frank Fuentes MD [address] [place] [address] 3 mo follow up Family Medicine Ezequiel Comment on above: 3 mo follow up Start: 09-22-2023 End: 12-22-2023 Thyrotropin [Units/volume] in Serum or Plasma [facility] Comment on above: Expected: 09/22/2023 , Expires: 12/22/2023 Start: 06-23-2023 Hemoglobin A1c measurement HbA1C [facility] Start: 06-23-2023 Hemoglobin A1c/Hemoglobin.total in Blood HbA1C [facility] Start: 06-23-2023 Hepatitis B screening URINE ALBUMIN:CREATININE RATIO [facility] Start: 06-23-2023 Hepatitis B surface antibody level LDL CHOLESTEROL [facility] Start: 05-14-2023 3 comp foot exam completed DIABETIC FOOT EXAM [facility] Start: 05-14-2023 Diabetic foot examination Diabetic F oot Exam [facility] Start: 04-24-2023 Covid-19 Vaccine () Covid-19 Vaccine () [facility] Start: 03-25-2023 Hemoglobin A1c/Hemoglobin.total in Blood HBA1C [facility] Start: 03-15-2023 Advance Directive Discussion Advance Directive Discussion [facility] Start: 01-31-2023 Patient discharge [facility] Start: 01-29-2023 Inhalation therapy procedure [facility] Start: 01-28-2023 End: 01-28-2023 Blood culture [facility] Start: 01-28-2023 Assessment of risk o f venous thromboembolism [facility] Start: 01-28-2023 Care regimes management [facility] Start: 01-28-2023 Catheterization of vein [facility] Start: 01-28-2023 Elevation of affecte d extremity [facility] Start: 01-28-2023 Insertion of cathete r into peripheral vein [facility] Start: 01-28-2023 Measuring intake and output [facility] Start: 01-28-2023 Notification of physician [facility] Start: 01-28-2023 Oxygen therapy [facility] Start: 01-28-2023 Patient education [facility] Start: 01-28-2023 Providing care accor ding to standard [facility] Start: 01-28-2023 Provision of activit y privileges [facility] Start: 01-28-2023 Referral to manager transfusion [facility] Start: 01-28-2023 Referral to occupati onal therapist [facility] Start: 01-28-2023 Referral to service [facility] Start: 01-28-2023 Tobacco use cessatio n education [facility] Start: 01-28-2023 [facility] Start: 01-28-2023 Admission procedure [facility] Start: 11-16-2023 Following clinical pathway protocol [facility] Start: 01-28-2023 End: 01-28-2023 Blood culture [facility] Start: 01-28-2023 End: 01-29-2023 [facility] Start: 01-28-2023 Hospital admission, emergency, from emergency room, medical nature [facility] Start: 01-28-2023 Urinalysis complete panel - Urine [facility] Start: 01-28-2023 Bacteria identified in Blood by Culture Blood Culture [facility] Start: 12-29-2022 Hepatitis C antibody , confirmatory test DILATED RETINAL EXAM [facility] Start: 12-22-2022 End: 02-21-2023 Hemoglobin A1c in Blood [facility] Work Phone: Comment on above: Expected: 12/22/2022 , Expires: 02/21/2023 Start: 12-22-2022 Hemoglobin A1c/Hemoglobin.total in Blood HBA1C [facility] Start: 12-22-2022 End: 02-21-2023 Thyrotropin [Units/volume] in Serum or Plasma [facility] Work Phone: Comment on above: Expected: 12/22/2022 , Expires: 02/21/2023 Start: 12-19-2022 SHINGRIX VACCINE (1 of 2) LEYVA GRIX VACCINE (1 of 2) [facility] Comment on above: Postponed from 04/22 (Declined at this time) Start: 11-13-2022 Influenza vaccination [facility] Start: 09-22-2022 End: 11-22-2022 Comprehensive metabolic 2000 panel - Serum or Plasma [facility] Work Phone: Comment on above: Expected: 09/22/2022 , Expires: 11/22/2022 Start: 09-22-2022 End: 11-22-2022 Hemoglobin A1c in Blood [facility] Work Phone: Comment on above: Expected: 09/22/2022 , Expires: 11/22/2022 Start: 06-19-2022 Hemoglobin A1c/Hemoglobin.total in Blood HBA1C [facility] Start: 06-17-2022 Hepatitis B surface antibody level LDL CHOLESTEROL [facility] Start: 05-30-2022 3 comp foot exam completed DIABETIC FOOT EXAM [facility] Start: 04-21-2022 COVID-19 VACCINE (6 - Pfizer series) COVID-19 VACCINE (6 - Pfizer series) [facility] Start: 03-15-2022 ADVANCE DIRECTIVE DISCUSSION ADVANCE DIRECTIVE DISCUSSION [facility] Start: 12-27-2021 Hepatitis C antibody , confirmatory test DILATED RETINAL EXAM [facility] Start: 12-19-2021 End: 02-18-2022 Comprehensive metabolic 2000 panel - Serum or Plasma [facility] Work Phone: Comment on above: Expected: 12/19/2021 , Expires: 02/18/2022 Start: 12-19-2021 End: 02-18-2022 Thyrotropin [Units/volume] in Serum or Plasma [facility] Work Phone: Comment on above: Expected: 12/19/2021 , Expires: 02/18/2022 Start: 12-17-2021 Hemoglobin A1c/Hemoglobin.total in Blood HBA1C [facility] Start: 12-12-2021 Hepatitis B screening URINE ALBUMIN:CREATININE RATIO [facility] Start: 11-13-2021 Influenza vaccination INFLUENZA (#1) [facility] Start: 08-22-2021 COVID-19 VACCINE (5 - Booster for Pfizer series) COVID-19 VACCINE (5 - Booster for Pfizer series) [facility] Start: 04-26-2021 COVID-19 VACCINE (4 - Booster for Pfizer series) COVID-19 VACCINE (4 - Booster for Pfizer series) [facility] Start: 03-15-2021 ADVANCE DIRECTIVE DISCUSSION ADVANCE DIRECTIVE DISCUSSION [facility] Start: 04-15-2001 Medicare Annual Well ness Visit Medicare Annual Wellness Visit [facility] Start: 1996 Hepatitis B Vaccine (1 of 3 - Risk 3-dose series) Hepatitis B Vaccine (1 of 3 - Risk 3-dose series) [facility] Start: 1996 RSV Vaccine (1 - 1-d ose 60+ series) RSV Vaccine (1 - 1-dose 60+ series) [facility] Start: 1986 SHINGRIX VACCINE (1 of 2) LEYVA GRIX VACCINE (1 of 2) [facility] Start: 1954 Anxiety Screening Anxiety Screening [facility] Start: 1942 PNEUMOCOCCAL: 65+ (1 - PCV) PNEUMOCOCCAL: 65+ (1 - PCV) [facility] Anion gap in Serum o r Plasma [facility] Bacteria identified in Urine by Culture URINE CULTURE Microbiology Routine Dysuria 03/19/2022 11:48 AM EST [facility] Work Phone: Bacteria identified in Urine by Culture BACTERIAL CULTURE, URINE Microbiology Routine Urinary frequency 09/26/2024 2:16 PM EDT [facility] Work Phone: BUN/Creatinine ratio [facility] C reactive protein [Mass/volume] in Serum or Plasma [facility] Calcium [Mass/volume ] in Serum or Plasma [facility] Carbon dioxide, tota l [Moles/volume] in Central venous blood [facility] Creatinine [Mass/vol ume] in Serum or Plasma [facility] End: 03-08-2024 CT BRAIN WO IVCON CT BRAIN WO IVCON Radiology Routine Nontraumatic subarachnoid hemorrhage (HCC) 1 Occurrences starting 02/07/2023 until 03/08/2024 [facility] Work Phone: Comment on above: 1 Occurrences starti ng 02/07/2023 until 03/08/[address]24 CT BRAIN WO IVCON CT BRAIN WO IV CON Radiology Routine Nontraumatic subarachnoid hemorrhage (HCC) 02/19/2023 9:18 AM EST [facility] Work Phone: Erythrocyte mean corpuscular volume determination [facility] Erythrocyte sediment ation rate [facility] Ferritin [Mass/volum e] in Serum or Plasma [facility] Ferritin [Mass/volum e] in Serum or Plasma [facility] Glucose [Mass/volume ] in Serum or Plasma [facility] Hematocrit [Volume Fraction] of Blood [facility] Hematocrit [Volume Fraction] of Blood [facility] Hemoglobin [Mass/vol ume] in Blood [facility] Hemoglobin A1c/Hemoglobin.total in Blood [facility] Iron [Mass/mass] in Unspecified specimen [facility] Iron [Mass/mass] in Unspecified specimen [facility] Iron and Iron bindin g capacity panel - Serum or Plasma [facility] Iron saturation [Mas s Fraction] in Serum or Plasma [facility] Iron saturation [Mas s Fraction] in Serum or Plasma [facility] Leukocytes [#/volume ] in Blood [facility] Mean corpuscular hemoglobin concentration determination [facility] Mean corpuscular hemoglobin determination [facility] Measurement of renal function [facility] Patient referral [facility] Work Phone: Platelets [#/volume] in Blood [facility] Potassium measurement [facility] Red blood cell count [facility] Red cell distributio n width determination [facility] Respiratory pathogen s DNA and RNA panel - Respiratory specimen by JONATHAN with probe detection [facility] Serum chloride measurement [facility] Sodium measurement [facility] Total iron binding capacity measurement [facility] Urea nitrogen [Mass/volume] in Serum or Plasma [facility] Urine culture [facility] Immunizations Immunization Date Immunization Notes Care Provider [facility] 06-27-2024 COVID-19 vaccine, ag e 12+ yr (PFIZER-BIONTECH [facility]) Frank Fuentes MD Work Phone: [facility] 12-28-2023 COVID-19 vaccine, ag e 12+ yr (PFIZER-BIONTECH [facility]) Frank Fuentes MD Work Phone: [facility] 12-28-2023 influenza, high dose seasonal, preservative-free Frank Fuentes MD Work Phone: [facility] 12-28-2023 influenza virus vaccine, unspecified formulation Karolina Mcgee Work Phone: [facility] 12-22-2022 COVID-19 vaccine, ag e 12+ yr, season (PFIZER-BIONTECH) Frank Fuentes MD Work Phone: [facility] 12-22-2022 influenza (HD-IIV4) vaccine, age 65+ yr, high dose, quadrivalent, PF (FLUZONE HIGH-DOSE) Frank Fuentes MD Work Phone: [facility] 12-22-2022 influenza virus vaccine, unspecified formulation Frank Fuentes MD Work Phone: [facility] 06-22-2022 tetanus toxoid, redu kodak diphtheria toxoid, and acellular pertussis vaccine, adsorbed Frank Fuentes MD Work Phone: [facility] 12-19-2021 COVID-19 booster vaccine, age 12+ yr, bivalent ([employer]-BIONTECH) Frank Fuentes MD Work Phone: [facility] 12-19-2021 influenza, high-dose , quadrivalent vaccine (FLUZONE HIGH DOSE QUADRIVALENT) Frank Fuentes MD Work Phone: [facility] 12-19-2021 influenza virus vaccine, unspecified formulation Karolina Arely Work Phone: [facility] 11-13-2021 COVID-19 vaccine, ag e 12+ yr, bivalent ([employer]-BIONTECH) Frank Fuentes MD Work Phone: [facility] 11-13-2021 influenza virus vaccine, unspecified formulation Frank Fuentes MD Work Phone: [facility] 12-12-2020 influenza, high-dose , quadrivalent vaccine (FLUZONE HIGH DOSE QUADRIVALENT) Frank Fuenets MD Work Phone: [facility] 11-13-2020 influenza, injectabl e, quadrivalent, contains preservative Frank Fuentes MD Work Phone: [facility] 05-01-2020 COVID-19 vaccine, ag e 12+ yr (PFIZER-BIONTECH - PURPLE TOP) Frank Fuentes MD Work Phone: [facility] 04-10-2020 COVID-19 vaccine, ag e 12+ yr (PFIZER-BIONTECH - PURPLE TOP) Frank Fuentes MD Work Phone: [facility] 12-07-2019 influenza, high-dose , quadrivalent vaccine (FLUZONE HIGH DOSE QUADRIVALENT) Frank Fuentes MD Work Phone: [facility] 12-08-2018 influenza, high dose seasonal, preservative-free Frank Fuentes MD Work Phone: [facility] 12-10-2017 influenza, high dose seasonal, preservative-free Frank Fuentes MD Work Phone: [facility] 12-10-2017 influenza, injectabl e, quadrivalent, preservative free Frank Fuentes MD Work Phone: [facility] Work Phone: 11-14-2015 Influenza virus vaccine [facility] 11-14-2015 influenza, seasonal, injectable, preservative free Frank Fuentes MD Work Phone: [facility] Work Phone: 12-12-2014 influenza, seasonal, injectable Frank Fuentes MD Work Phone: [facility] 08-30-2014 pneumococcal conjuga te vaccine, 13 valent Frank Fuentes MD Work Phone: [facility] 12-12-2013 influenza, seasonal, injectable Frank Fuentes MD Work Phone: [facility] 12-27-2012 influenza virus vaccine, unspecified formulation Frank Fuentes MD Work Phone: [facility] 12-16-2011 influenza virus vaccine, unspecified formulation Frank Fuentes MD Work Phone: [facility] 01-23-2008 tetanus and diphther ia toxoids, not adsorbed, for adult use Frank Fuentes MD Work Phone: [facility] Work Phone: 12-21-2007 influenza virus vaccine, unspecified formulation Frank Fuentes MD Work Phone: [facility] Work Phone: 12-29-2005 tetanus and diphther ia toxoids, adsorbed, preservative free, for adult use (2 Lf of tetanus toxoid and 2 Lf of diphtheria toxoid) Frank Fuentes MD Work Phone: [facility] Work Phone: 01-08-2005 influenza virus vaccine, unspecified formulation Frank Fuentes MD Work Phone: [facility] 01-08-2005 pneumococcal polysaccharide vaccine, 23 valent Frank Fuentes MD Work Phone: [facility] 08-20-1997 diphtheria and tetan us toxoids, adsorbed for pediatric use Frank Fuentes MD Work Phone: [facility] Work Phone: Payers Date Payer Category Payer Self-pay [id number] 2015 Private Health Insurance [facility] A[employer] SUPPLEMENT [id number] 2015-Present [phone] [address] [place] [address] Indemnity [id number] 2015 Private Health Insurance [id number] 2015 Unknown [id number] 2001 Medicare MEDICARE MEDICAR E A AND B [id number] 2001-Present [phone] [address] [address] [place] [address] Medicare [id number] 2001 Medicare [id number] 2001 Medicare [id number] Unknown [id number] Unknown [id number] Unknown [id number] Unknown [id number] Unknown [id number] Unknown [id number] Unknown [id number] Unknown [id number] Unknown [id number] Social History Date Type Detail Facility Start: 06-17-2021 End: 12-19-2021 Tobacco smoking status NHIS Never smoked tobacco [facility] Start: 06-17-2021 End: 06-22-2024 Alcohol intake Current non-drinker of alcohol (finding) [facility] Start: 1935 Sex Assigned At Not on file [facility] Start: 06-07-2021 End: 12-19-2021 Exposure to SARS-CoV-2 (event) Not sure [facility] Start: 04-04-2021 End: 01-28-2023 Tobacco smoking status NHIS Unknown if ever smoked [facility] Start: 1935 Sex Assigned At Female [facility] Start: 06-17-2021 End: 12-19-2021 Tobacco use and exposure Smokeless tobacco non-user [facility] Start: 08-28-2022 End: 09-22-2022 History of Social function [facility] Start: 08-28-2022 End: 09-22-2022 Tobacco use panel [facility] National Score (1-10 0), lower number is lower risk 60 [facility] (I/We) worried renard er (my/our) food would run out before (I/we) got money to buy more. Never true [facility] In the past 12 month s, was there a time when you were not able to pay the mortgage or rent on time? No [facility] Start: 09-21-2024 End: 09-26-2024 Alcoholic beverage intake Ex-drinker (finding) [facility] Medical Equipment Procedure Code Equipment Code Equipment Original Text Equipment Identifier Dates [id number], [id number] Start: 03-11-2021 Comment on above: Prodigy Glucometer T est blood sugar(s) 1 time daily. Dx: Type 2 DM - Controlled E11.9 Insulin: No Test blood sugar(s) 1 times daily. Dx: Type 2 DM - Controlled E11.9 Insulin: No [id number], [id number] Start: 07-28-2016 Comment on above: Lancets Test once da [place]. Dx: E11.9 Insulin: No Prodigy Glucometer t est strips Test once daily. Dx: E11.9 Insulin: No Goals Date Patient Goal Desired Activity /State Functional Status Date Assessment Result Facility 02-08-2023 Are you deaf, or do you have serious difficulty hearing No 02/08/2023 2:12 PM Brittnee Lemus RN [facility] 02-08-2023 Are you blind, or do you have serious difficulty seeing, even when wearing glasses No 02/08/2023 2:12 PM Brittnee Lemus RN [facility] 02-08-2023 Do you have serious difficulty walking or climbing stairs No 02/08/2023 2:12 PM Brittnee Lemus, MARIVEL [facility] 02-08-2023 Do you have difficul ty dressing or bathing No 02/08/2023 2:12 PM Brittnee Lemus RN [facility] 02-08-2023 Because of a physica l, mental, or emotional condition, do you have difficulty doing errands alone such as visiting a physician's office or shopping No 02/08/2023 2:12 PM Brittnee Lemus RN [facility] 01-31-2023 Functional status Patient Activity Chair [facility] Work Phone: 01-31-2023 Functional status Activity Abili ty Standby Assist [facility] Work Phone: Mental Status Date Assessment Result Facility 10-11-2024 Cognitive function Level Of Cons ciousness Awake;Alert;Appropriate;Fol lows Commands [facility] Work Phone: 02-08-2023 Because of a physica l, mental, or emotional condition, do you have serious difficulty concentrating, remembering, or making decisions No 02/08/2023 2:12 PM Brittnee Lemus, MARIVEL No [facility] 01-31-2023 Cognitive function Voice/Name [facility] Work Phone: Clinical Notes 11-20-2011 to 10-11-2024 Note Date & Type Note Facility 10-11-2024 Discharge summary [facility] 10-11-2024 Discharge summary Note Date/Time October 11, 2024 4:18pm [facility] Department [address] [place] [address] Emergency Department Summary 10/11/24 MR#: [id number] Acct: [id number] Name: NEELAM RYAN Rep #:[id number] 3 : [id number] 89 From: Darrel solorzano DO PCP: Dr. Koko Fuentes MD Status :REG ER Location: ED HPI History of Present Illness Chief Complaint: Hyperglycemia Narrative Narrative: Chief complaint and HPI: Hyperglycemia. 89-year-old female with past medical history of DM2, HTN, hypothyroidism, CKD presents for evaluation of hyperglycemia. Patient states that she has been having issues with hyperglycemia. Currently her diabetes is uncontrolled. She follows with her primary care physician. She is on Jardiance 10 mg, Ozempic 2 mg once a week (ook it last night), and Lantus 38 units at night. She was told that if her glucose remained high today she was to increase it tomorrow to 44 units. Patient states she has remained hyperglycemic into the 300/400s at home. Statesher monitor read high prior to arrival. She endorses fatigue and increased urinary frequency. Denies any fever, chills, chest pain, shortness of breath, abdominal pain, nausea, vomiting, diarrhea, constipation, dysuria, URI symptoms. Review of systems: See HPI Medications: As listed on the chart Allergies: As listed on the chart PFSH: Per chart Vital signs: As listed on the chart. Reviewed. 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 Pericardial effusion with cardiac tamponade Essential (primary) hypertension Hyperlipidemia Type 2 diabetes mellitus Hypothyroidism Home Medications ?Medication ?Instructions ?Recorded ?Last Taken ?Type carvedilol 25 mg tablet 25 mg PO BID 01/02/15 History cholecalciferol (vitamin D3) 25 1,000 unit PO DAILY Unknown History mcg (1,000 unit) tablet cranberry 500 mg capsule 500 mg PO DAILY 01/02/15 Unk nown History levothyroxine 75 mcg tablet 75 mcg PO QHS 01/02/1503/02 History pravastatin 80 mg tablet 80 mg PO DAILY 01/02/15 Unkn own History sitagliptin phosphate 50 mg tablet 50 mg PO DAILY 08/13 Unknown History (Januvia) nitroglycerin 0.4 mg sublingual 0.4 mg sublingual Q5-1 5M PRN chest 12/07/18 Unknown Rx tablet pain #25 tabs citalopram 20 mg tablet 20 mg PO DAILY 08/22/19 Unkn own History folic acid 1 mg tablet 1 mg PO BID 08/22/19 Unknown History latanoprost 0.005 % eye drops 1 drp ophthalmic (eye) . daily qhs 04/04/21 Unknown History (Xalatan) eye pantoprazole 40 mg tablet,delayed 40 mg PO DAILY 04/04 Unknown History release cyanocobalamin (vitamin B-12) 1,000 mcg PO DAILY 05/21 Unknown History 1,000 mcg capsule isosorbide mononitrate 30 mg 60 mg PO DAILY 09/21/22 U nknown History tablet,extended release 24 hr vitamins A,C,X-wfzl-ksqzgc 4,296 1 cap PO BID 09/21/22 Unknown History mcg-226 mg-90 mg capsule (PreserVision AREDS) furosemide 40 mg tablet 40 mg PO DAILY 30 days #30 t abs 01/31/23 Unknown Rx potassium chloride 10 mEq 10 meq PO DAILY 30 days #30 caps 01/31/23 Unknown Rx capsule,extended release acetaminophen 500 mg capsule 500 mg PO Q6H PRN 3 Unknown History aspirin 81 mg tablet,delayed 81 mg PO DAILY@0800 #30 t abs 09/14/23 Unknown Rx release glipizide 5 mg tablet (Glucotrol) 10 mg PO BID 4 Unknown History amlodipine 5 mg tablet (Norvasc) 2.5 mg PO DAILY 04/27 Unknown History semaglutide 0.25 mg or 0.5 mg (2 0.25 mg subcut QWEEK 04/27/24 Unknown History mg/3 mL) subcutaneous pen injector (Ozempic) Allergy/AdvReac Type Severity Reaction Status Date / Time quinapril HCl (From Accupril) Allergy Other Verified 10/11/24 13:23 Sulfa (Sulfonamide Allergy Rash Verified 10/11/24 13:23 Antibiotics) Family History Other CAD (coronary artery disease) Diabetes Hyperlipidemia Hypothyroidism Obesity Type 2 diabetes mellitus Surgical History History of coronary angioplasty (09/23/18) History of herniorrhaphy History of carpal tunnel release Hx of cholecystectomy History of bladder suspension procedure History of hysterectomy History of partial thyroidectomy S/P pericardial window creation (11/20/11) History of coronary artery stent placement (11/20/11) Social History Smoking Status: Never smoker alcohol intake: never substance use type: does not use EXAM Physical Exam Const Vital Signs: 10/11/24 13:21 10/11/24 13:22 10/11/24 14:21 Temperature 98.5 F Temperature Source Oral Pulse Rate 58 L 87 Respiratory Rate 18 23 H Respiratory Effort Normal Non-Labored Respiratory Pattern Normal Blood Pressure 123/58 H 126/54 H Blood Pressure Mean 79 78 Pulse Ox 98 100 Oxygen Delivery Method Room Air Room Air 10/11/24 15:00 10/11/24 16:00 Temperature Temperature Source Pulse Rate 88 83 Respiratory Rate 13 17 Respiratory Effort Respiratory Pattern Blood Pressure 102/51 L 111/55 L Blood Pressure Mean 68 73 Pulse Ox 95 97 Oxygen Delivery Method Room Air MDM MDM MDM Narrative Medical decision making narrative: 89-year-old female with past medical history of DM2, HTN, hypothyroidism, CKD presents for evaluation of hyperglycemia. Patient states that she has been having issues with hyperglycemia. Currently her diabetes is uncontrolled. She follows with her primary care physician. She is on Jardiance 10 mg, Ozempic 2 mg once a week (took it last night), and Lantus 38 units at night. She was toldthat if her glucose remained high today she was to increase it tomorrow to 44 units. Differential diagnosis includes but is not limited to hyperglycemia, electrolyte abnormality, DKA, HHS, UTI, pneumonia. NS bolus ordered. Hyperglycemia/DKA workup ordered. VBG without acidosis. CBC without leukocytosis. Patient has baseline anemia. CMP shows hyponatremia with a sodiumof 128. Patient's baseline is around 132. Potassium unremarkable. She has baseline CKD with a BUN of 55 and creatinine of 1.81. Patient does have a mild anion gap of 16. Bicarb unremarkable. Her glucose is 549. 10 units IV insulinordered. No transaminitis. Beta hydroxybutyrate mildly elevated at 0.8. UA negative for ketones. Positive for glucose and UTI. Urine culture sent. Rocephin ordered. Patient not in DKA. Will repeat BMP after fluids. Chest x-ray was personally viewed interpreted by me, ED physician. Mild cardiomegaly. No large effusion, pneumonia, pneumothorax. Radiology in agreement. There is a1.4 cm density overlying the right lower hilum per radiology. Recommend CT chest. This can be performed outpatient. Repeat glucose 408 despite 10 units of insulin IV. Patient also having periodic desaturations of oxygen with ambulation as well as blood pressure becoming more soft. At this point in time,I feel that patient will warrant admission for continued hyperglycemia treatmentand monitoring as well as IV antibiotics for her UTI. Patient and family confirmed understanding of the plan. I spoke with Dr. Culver who agrees for admission. Impression: 1. Hyperglycemia with known type 2 diabetes 2. UTI 3. Acute on chronic mild hyponatremia 4. Dehydration 5. 1.4 cm density overlying the right lower hilum Lab Data Labs: Laboratory Results - last 24 hr 10/11/24 10/11/24 10/11/24 13:50 14:14 15:57 WBC 10.6 RBC 2.48 L Hgb 9.4 L Hct 27.3 L MCV 110.1 H MCH 37.9 H MCHC 34.4 RDW Std Deviation 63.8 H RDW Coeff of Maria Del Rosario 16.0 H Plt Count 395 MPV 9.9 Immature Gran % (Auto) 0.600 Neut % (Auto) 73.6 H Lymph % (Auto) 15.0 L Overton % (Auto) 7.9 Eos % (Auto) 2.6 Baso % (Auto) 0.3 Absolute Neuts (auto) 7.8 H Absolute Lymphs (auto) 1.58 Nucleated RBC % 1.5 Sodium 128 L Potassium 4.4 Chloride 90 L Carbon Dioxide 22.6 Anion Gap 16 H BUN 55 H Creatinine 1.81 H Est GFR (MDRD) Non-Af 27 L BUN/Creatinine Ratio 30.5 H Glucose 549 H* Calcium 9.7 Total Bilirubin 0.64 AST 20 ALT 14 Alkaline Phosphatase 69 Total Protein 7.2 Albumin 4.2 Globulin 3.1 Albumin/Globulin Ratio 1.4 b-Hydroxybutyric mmol/L 0.8 H Urine Color Yellow Urine Clarity Turbid Urine pH 6.0 Ur Specific Knox 1.015 Urine Protein 30 H Urine Glucose (UA) 1000 H Urine Ketones Negative Urine Occult Blood 50 H Urine Nitrite Positive H Urine Bilirubin Negative Urine Urobilinogen Normal Ur Leukocyte Esterase 500 H Urine RBC 5-10 SEEN Urine WBC >100 SEEN Ur Squamous Epith Cells 0 SEEN Urine Bacteria 1+ Urine Mucus 0 SEEN Urine Yeast 3+ POC Glucose 408 H ABG Data ABG results: ABG 10/11/24 13:58 Specimen Type DESTINEE Sample Site Not entered VBG pH 7.44 H VBG pO2 60 H VBG HCO3 26 VBG Total CO2 27 VBG O2 Sat (Calc) 92 H VBG Base Excess 2 POC Mix VBG pCO2 Pt Tmp 38.1 L O2 Delivery Device Not entered Radiography Diagnostic Testing: Clinical Impression(s) from Imaging Studies Chest X-Ray 10/11/24 13:34 IMPRESSION: There is mild cardiomegaly without overt CHF. There is a 1.4 cm density overlying the right lower hilum. Chest CT correlationis recommended. [facility] T[facility] Chief Complaint: Hyperglycemia ED Provider: Darrel Damico Dx/Rx/DC Orders Prescriptions: No Action Januvia 50 mg tablet 50 mg PO DAILY glipizide [Glucotrol] 5 mg tablet 10 mg PO BID Patient Comments: 2 tablets in morning and 1 tablet in evening nitroglycerin 0.4 mg tablet, sublingual 0.4 mg SUBLINGUAL Q5-15M PRN (Reason: chest pain) Qty: 25 3RF pantoprazole 40 mg tablet,delayed release (DR/EC) 40 mg PO DAILY latanoprost [Xalatan] 0.005 % drops 1 drp ophthalmic (eye) .daily qhs isosorbide mononitrate 30 mg tablet extended release 24 hr 60 mg PO DAILY PreserVision AREDS 4,296 mcg-226 mg-90 mg capsule 1 cap PO BID acetaminophen 500 mg capsule 500 mg PO Q6H PRN aspirin 81 mg tablet,delayed release (DR/EC) 81 mg PO DAILY@0800 Qty: 30 0RF amlodipine [Norvasc] 5 mg tablet 2.5 mg PO DAILY Ozempic 0.25 mg or 0.5 mg (2 mg/3 mL) pen injector 0.25 mg subcut QWEEK Rx Instructions: for 4 weeks carvedilol 25 MG tablet 25 mg PO BID levothyroxine 75 MCG tablet 75 mcg PO QHS pravastatin 80 MG tablet 80 mg PO DAILY cranberry 500 MG capsule 500 mg PO DAILY cholecalciferol (vitamin D3) 1,000 UNIT tablet 1,000 unit PO DAILY citalopram 20 mg tablet 20 mg PO DAILY folic acid 1 mg tablet 1 mg PO BID furosemide 40 mg Tablet 40 mg PO DAILY 30 Days Qty: 30 0RF potassium chloride 10 mEq capsule, extended release 10 meq PO DAILY 30 Days Qty: 30 0RF cyanocobalamin (vitamin B-12) 1,000 mcg capsule 1,000 mcg PO DAILY Primary Care Provider: Koko Fuentes Referrals: Koko Fuentes MD [Primary Care Provider] - Print Language: Malagasy What to do if you have Problems For any increased pain, shortness of breath, bleeding, nausea or vomiting, chestpain, or any unexpected problems, contact your Primary Care Provider. Call [facility] ([phone]) or report to the closest Emergency Room. Call 911 if necessary. 10/11/24 1618 <Electronically signed by Darrel Damico DO> Cosigner Signature (if applicable): CC: Dr. Koko Fuentes MD ~ Signed [facility] Work Phone: [phone] [phone] Radiology Diagnostic study note [facility] Imaging Services [address] [place] [address] Chest 1 View (Portable) MR#: [id number] Acct: [id number] Name: NEELAM RYAN Rep #: [id number] : [id number] F [id number] From: Shyam Wood MD PCP: Dr. Koko Fuentes MD Status: REG ER Study:Chest 1 View (Portable) Date of Exam: 10/11/24 Exam# [id number] Ordering Dr: Darrel Daigle DO PROCEDURE: CHEST 1 VIEW (PORTABLE) 10/11/2024 REASON FOR EXAM: HYPERGLYCEMIA TECHNIQUE: Frontal view of the chest. COMPARISON: None FINDINGS: There is mild cardiomegaly without overt CHF. There is a 1.4 cm density overlying the right lower hilum. There is no pneumothorax. There is no significant effusion. There is no acute bony abnormality. Aortic calcifications are noted. RAD/Chest 1 View (Portable) IMPRESSION: There is mild cardiomegaly without overt CHF. There is a 1.4 cm density overlying the right lower hilum. Chest CT correlationis recommended. Reading Location: [facility] CC: Dr. Darrel Damico DO; Dr. Koko Fuentes MD ~ Price Analyst: Signed [facility]07-30-2025 Telephone encounter Note* Telephone Encounter - Rakel New MA - 10/11/2024 12:40 PM EDT Spoke with [id number] Anaya and relayed message. She verbalized understanding. Rakel New MA [facility]07-30-2025 Miscellaneous Notes* Telephone Encounter - Rakel New MA - 10/11/2024 12:40 PM EDT Spoke with [id number] Anaya and relayed message. She verbalized understanding. Rakel New MA * Telephone Encounter - Frank Fuentes MD - 10/11/2024 12:26 PM EDT With persistently high sugars in the 400's with new onset tiredness, Shortness of Breath, frequent urination I am concerned she may have symptoms of DKA and should be evaluated in the ER instead of in the office. * Telephone Encounter - Joy Mcclendon RN - 10/11/2024 11:34 AM EDT Pt reports her BS has gotten higher since Generator Assembler increase the lantus to 38 unit at hs on 10/09/24. BS this morning fasting was 405. BS has been high the last 5 days. Pt reports she feels tired, weak for the last couple of weeks, urinating more frequent, Shortness of Breath on exertion. Protocol recommends call pcp now. Scheduled same day appt with pcp. Pt agreeable to appt- family agreeable also. Reason for Disposition Blood glucose > 400 mg/dL (22.2 mmol/L) Answer Assessment - Initial Assessment Questions 1. BLOOD GLUCOSE: Pt reports BS reading last night read high. This morning fasting was 405. BP last night was 107/56 and this morning 106/56. Reports Generator Assembler increase her lantus on 10/09 and the BS keep getting higher. Family concerned as pt lives alone. 2. ONSET: 7 am this morning fasting. Last night at 11 pm. Slept good- had to get up and urinate a couple times. Reports jardiance makes her urinate more. 3. USUAL RANGE: Fasting has been high but keeps getting higher. 5 days ago the hs reading was 499, the morning was 332 fasting at 7am. 4 days ago hs 487 at 11 pm, fasting was 324, 3 days ago 532 hs, fasting 348, 2 days ago hs 559 11 pm, fasting 348. 4. KETONES: Doesn't have 5. TYPE 1 or 2: Type 2 6. INSULIN: Lantus 38 units at bedtime. Ozempic 2 mg weekly- took it last night, on . 7. DIABETES PILLS: Jardiance 10 mg every morning. 8. OTHER SYMPTOMS: Tired. Frequent urination. Shortness of Breath all the time on exertion- not shortness of breath sitting. No dizziness. Has weakness b/c she is tired. No nausea or vomiting. Walks with walker. Weakness is new for a couple weeks. 9. : Post menopause. Protocols used: Diabetes - High Blood Sbpgs-QWRTI-IB [facility] Telephone encounter Note * Telephone Encounter - Frank Fuentes MD - 10/11/2024 12:26 PM EDT With persistently high sugars in the 400's with new onset tiredness, Shortness of Breath, frequent urination I am concerned she may have symptoms of DKA and should be evaluated in the ER instead of in the office. [facility]07-30-2025 Telephone encounter Note* Telephone Encounter - Joy Mcclendon RN - 10/11/2024 11:34 AM EDT Pt reports her BS has gotten higher since Generator Assembler increase the lantus to 38 unit at hs on 10/09/24. BS this morning fasting was 405. BS has been high the last 5 days. Pt reports she feels tired, weak for the last couple of weeks, urinating more frequent, Shortness of Breath on exertion. Protocol recommends call pcp now. Scheduled same day appt with pcp. Pt agreeable to appt- family agreeable also. Reason for Disposition Blood glucose > 400 mg/dL (22.2 mmol/L) Answer Assessment - Initial Assessment Questions 1. BLOOD GLUCOSE: Pt reports BS reading last night read high. This morning fasting was 405. BP last night was 107/56 and this morning 106/56. Reports Generator Assembler increase her lantus on 10/09 and the BS keep getting higher. Family concerned as pt lives alone. 2. ONSET: 7 am this morning fasting. Last night at 11 pm. Slept good- had to get up and urinate a couple times. Reports jardiance makes her urinate more. 3. USUAL RANGE: Fasting has been high but keeps getting higher. 5 days ago the hs reading was 499, the morning was 332 fasting at 7am. 4 days ago hs 487 at 11 pm, fasting was 324, 3 days ago 532 hs, fasting 348, 2 days ago hs 559 11 pm, fasting 348. 4. KETONES: Doesn't have 5. TYPE 1 or 2: Type 2 6. INSULIN: Lantus 38 units at bedtime. Ozempic 2 mg weekly- took it last night, on . 7. DIABETES PILLS: Jardiance 10 mg every morning. 8. OTHER SYMPTOMS: Tired. Frequent urination. Shortness of Breath all the time on exertion- not shortness of breath sitting. No dizziness. Has weakness b/c she is tired. No nausea or vomiting. Walks with walker. Weakness is new for a couple weeks. 9. : Post menopause. Protocols used: Diabetes - High Blood [id number] [facility]07-28-2025 Telephone encounter Note* Telephone Encounter - Marisol Holm RN - 10/09/2024 6:55 PM EDT Pt called and is notified of providers message and instructions. Pt voices understanding. She states she already has an appointment on 10/24/24. I told her if she needs an earlier appointment to let us know. Marisol Holm RN [facility]07-28-2025 Miscellaneous Notes* Telephone Encounter - Marisol Holm RN - 10/09/2024 6:55 PM EDT Pt called and is notified of providers message and instructions. Pt voices understanding. She states she already has an appointment on 10/24/24. I told her if she needs an earlier appointment to let us know. Marisol Holm RN * Telephone Encounter - Sarah Cormier APRN.CNP - 10/09/2024 4:10 PM EDT If pain is persistent she will should follow-up. Sarah Cormier APRN.RICHARD * Telephone Encounter - Marisol Holm RN - 10/09/2024 3:50 PM EDT Pt called and is notified of providers message and instructions. Pt voices understanding. Pt reports to feeling a little lightheaded every now and then. She states she can't pinpoint when. She reports she has never felt like she was going to pass out, and she always uses her walker. Pt does report back pain. Marisol Holm RN * Telephone Encounter - Sarah Cormier APRN.CNP - 10/09/2024 10:37 AM EDT Blood sugar still running high. Increase Lantus to 38 units and if still running above 200 in the next three days increase to 44 units. Update me Wednesday with blood sugar readings. Has she been feeling alright with BP readings? Any lightheadedness or dizziness? Sarah Cormier APRN.CNP * Telephone Encounter - Suyapa Ronquillo LPN - 10/09/2024 10:26 AM EDT Patient calling she had seen Sarah Cormier on Wednesday and was to call with bp readings and blood sugars readings Wednesday morning. 10/07 8 am 332 fasting 11 pm 499 10/08 8 am 324 fasting 11 pm 487 10/09 8 am 348 fasting 10/07 left arm 8 am 118/66 11 pm 96/55 10/08 8 am 107/62 11 pm 104/55 10/09 8 am 104/62 she did not rex down pulse readings at all [facility] Telephone encounter Note * Telephone Encounter - Sarah Cormier APRN.CNP - 10/09/2024 4:10 PM EDT If pain is persistent she will should follow-up. Sarah Cormier APRN.CNP [facility]07-28-2025 Telephone encounter Note* Telephone Encounter - Marisol Holm RN - 10/09/2024 3:50 PM EDT Pt called and is notified of providers message and instructions. Pt voices understanding. Pt reports to feeling a little lightheaded every now and then. She states she can't pinpoint when. She reports she has never felt like she was going to pass out, and she always uses her walker. Pt does report back pain. Marisol Holm RN [facility]07-28-2025 Telephone encounter Note* Telephone Encounter - Sarah Cormier APRN.CNP - 10/09/2024 10:37 AM EDT Blood sugar still running high. Increase Lantus to 38 units and if still running above 200 in the next three days increase to 44 units. Update me Wednesday with blood sugar readings. Has she been feeling alright with BP readings? Any lightheadedness or dizziness? Sarah Cormier APRN.CAR REFINISHER [facility]07-28-2025 Telephone encounter Note* Telephone Encounter - Suyapa Ronquillo LPN - 10/09/2024 10:26 AM EDT Patient calling she had seen Sarah Cormier on Wednesday and was to call with bp readings and blood sugars readings Wednesday morning. 10/07 8 am 332 fasting 11 pm 499 10/08 8 am 324 fasting 11 pm 487 10/09 8 am 348 fasting 10/07 left arm 8 am 118/66 11 pm 96/55 10/08 8 am 107/62 11 pm 104/55 10/09 8 am 104/62 she did not rex down pulse readings at all [facility]07-28-2025 NoteHNO ID: [id number] Author: NAVYA CERVANTES RN Service: ? Author Type: Registered Nurse Type: Progress Notes Filed: 10/10/2024 10:04 Note Text: [facility] Telephonic Outreach Provider Action/FYI Patient identified by Name and Date of . Discussed care with patient. -patient states she is doing okay, had PCP visit this past Wednesday -patient states her BP today was around 115/66 and my blood sugars are running in 300's. I was told to call my PCP office today with all my blood glucose readings from the weekend. -patient denies any questions, concerns, or needs -reviewed upcoming appointments, follows up with PCP in 4 weeks for DM -reminded patient of [facility] phone number for after hour medical concerns. Patient verbalizes understanding. Program Details Chronic Disease Management Status: Graduated Patient Graduated Effective Dates: 06/13/2024 - 10/09/2024 Responsible Staff: Cesar Crouch RN Support and Services: None active Program Goals Targets Target Due Completed Completed By Outcome Comprehensive CKD education provided 09/12/2024 09/21/2024 Latanya Paredes, MARIVEL Complete Comprehensive Diabetes education provided 09/12/2024 09/21/2024 Latanya Paredes, RN Complete Comprehensive HTN education provided 09/12/2024 09/21/2024 Latanya Paredes RN Complete Patient-stated goal addressed (add comment) 09/12/2024 08/24/2024 Lukasz Matos RN Complete Cont to get up and move General education provided (managing stress, where to go/how to contact, etc.) 07/13/2024 06/27/2024 Cesar Crouch RN Complete Biannual PCP visit addressed 09/12/2024 06/27/2024 Cesar Crouch RN Complete/Scheduled seen today 06/27/24 . f/u for 07/11/24 3 mos f/u 09/26/24 CKD lab care gaps addressed 09/12/2024 06/27/2024 Cesar Crouch RN Complete/Scheduled cmp 06/23/24 Diabetes lab care gaps addressed 09/12/2024 06/27/2024 Cesar Crouch RN Complete/Scheduled done 06/23/24 HTN lab care gaps addressed 09/12/2024 06/27/2024 Cesar Crouch RN Complete/Scheduled 06/23/24 Intake assessments completed: ADLs, Fall Risk, SDOH 07/13/2024 06/13/2024 Cesar Crouch RN Complete Annual Medicare Wellness visit addressed 09/12/2024 06/13/2024 Cesar Crouch RN Complete/Scheduled Annual Nephrology visit addressed 09/12/2024 06/13/2024 Cesar Crouch RN Complete/Scheduled Dr Montgomery at [facility] August 2024 Assessments CDM Assessment Medications: Do you have any questions about taking your medications or which medications you should be taking?: No Do you need any medication refills at this time, including any of the medication you might take only when needed?: No Social: It can be normal to feel anxious or down during a time like this. Would you like to talk to a mental health professional about how you have been feeling?: No Symptoms: Are you experiencing any new or worsening symptoms that you need to talk about today?: No ADLs No documentation this encounter Fall Risk No documentation this encounter SDOH No documentation this encounter Interventions No episode Disposition Based on ruling machine feeder, the following disposition is advised: No action needed Navya Cervantes RN October 09, 2024 9:30 [facility]07-28-2025 History of Present illness Narrative* Navya Cervantes RN - 10/09/2024 9:30 AM EDT Images from the original note were not included. CDM [facility] Telephonic Outreach Provider Action/FYI Patient identified by Name and Date of . Discussed care with patient. -patient states she is doing okay, had PCP visit this past Wednesday -patient states her BP today was 115/66 and my blood sugars are running in 300's. I was told to call my PCP office today with all my blood glucose readings from the weekend. -patient denies any questions, concerns, or needs -reviewed upcoming appointments, follows up with PCP in 4 weeks for DM -reminded patient of [facility] phone number for after hour medical concerns. Patient verbalizes understanding. Program Details Chronic Disease Management Status: Graduated Patient Graduated Effective Dates: 06/13/2024 - 10/09/2024 Responsible Staff: Cesar Crouch RN Support and Services: None active Program Goals Targets Target Due Completed Completed By Outcome Comprehensive CKD education provided 09/12/2024 09/21/2024 Latanya Paredes RN Complete Comprehensive Diabetes education provided 09/12/2024 09/21/2024 Latanya Paredes RN Complete Comprehensive HTN education provided 09/12/2024 09/21/2024 Latanya Paredes RN Complete Patient-stated goal addressed (add comment) 09/12/2024 08/24/2024 Lukasz Matos RN Complete Cont to get up and move General education provided (managing stress, where to go/how to contact, etc.) 07/13/2024 06/27/2024 Cesar Crouch RN Complete Biannual PCP visit addressed 09/12/2024 06/27/2024 Cesar Crouch RN Complete/Scheduled seen today 06/27/24 . f/u for 07/11/24 3 mos f/u 09/26/24 CKD lab care gaps addressed 09/12/2024 06/27/2024 Cesar Crouch RN Complete/Scheduled cmp 06/23/24 Diabetes lab care gaps addressed 09/12/2024 06/27/2024 Cesar Crouch RN Complete/Scheduled done 06/23/24 HTN lab care gaps addressed 09/12/2024 06/27/2024 Cesar Crouch RN Complete/Scheduled 06/23/24 Intake assessments completed: ADLs, Fall Risk, SDOH 07/13/2024 06/13/2024 Cesar Crouch RN Complete Annual Medicare Wellness visit addressed 09/12/2024 06/13/2024 Cesar Crouch RN Complete/Scheduled Annual Nephrology visit addressed 09/12/2024 06/13/2024 Cesar Crouch RN Complete/Scheduled Dr Montgomery at [facility] August 2024 Assessments CDM Assessment Medications: Do you have any questions about taking your medications or which medications you should be taking?:No Do you need any medication refills at this time, including any of the medication you might take only when needed?: No Social: It can be normal to feel anxious or down during a time like this. Would you like to talk to a mental health professional about how you have been feeling?: No Symptoms: Are you experiencing any new or worsening symptoms that you need to talk about today?: No ADLs No documentation this encounter Fall Risk No documentation this encounter SDOH No documentation this encounter Interventions No episode Disposition Based on ruling machine feeder, the following disposition is advised: No action needed Navya Cervantes RN October 09, 2024 9:30 AM documented [facility] NotePatient Outreach ([facility]) NEELAM [id number]) 1935 F Date Time Provider Department 10/09/24 [facility] [place] During your visit today, we recorded the following information about you: Navya Cervantes RN 10/10/2024 10:04 AM Addendum CDM Care Path Telephonic Outreach Provider Action/FYI Patient identified by Name and Date of . Discussed care with patient. -patient states she is doing okay, had PCP visit this past Wednesday -patient states her BP today was around 115/66 and my blood sugars are running in 300's. I was told to call my PCP office today with all my blood glucose readings from the weekend. -patient denies any questions, concerns, or needs -reviewed upcoming appointments, follows up with PCP in 4 weeks for DM -reminded patient of [facility] phone number for after hour medical concerns. Patient verbalizes understanding. Program Details Chronic Disease Management Status: Graduated Patient Graduated Effective Dates: 06/13/2024 - 10/09/2024 Responsible Staff: Cesar Crouch RN Support and Services: None active Program Goals Targets Target Due Completed Completed By Outcome Comprehensive CKD education provided 09/12/2024 09/21/2024 Latanya Paredes RN Complete Comprehensive Diabetes education provided 09/12/2024 09/21/2024 Latanya Paredes RN Complete Comprehensive HTN education provided 09/12/2024 09/21/2024 Latanya Paredes RN Complete Patient-stated goal addressed (add comment) 09/12/2024 08/24/2024 Lukasz Matos RN Complete Cont to get up and move General education provided (managing stress, where to go/how to contact, etc.) 07/13/2024 06/27/2024 Cesar Crouch RN Complete Biannual PCP visit addressed 09/12/2024 06/27/2024 Cesar Crouch RN Complete/Scheduled seen today 06/27/24 . f/u for 07/11/24 3 mos f/u 09/26/24 CKD lab care gaps addressed 09/12/2024 06/27/2024 Cesar Crouch RN Complete/Scheduled cmp 06/23/24 Diabetes lab care gaps addressed 09/12/2024 06/27/2024 Cesar Crouch RN Complete/Scheduled done 06/23/24 HTN lab care gaps addressed 09/12/2024 06/27/2024 Cesar Crouch RN Complete/Scheduled 06/23/24 Intake assessments completed: ADLs, Fall Risk, SDOH 07/13/2024 06/13/2024 Cesar Crouch RN Complete Annual Medicare Wellness visit addressed 09/12/2024 06/13/2024 Cesar Crouch RN Complete/Scheduled Annual Nephrology visit addressed 09/12/2024 06/13/2024 Cesar Crouch RN Complete/Scheduled Dr Montgomery at [facility] - August 2024 Assessments CDM Assessment Medications: Do you have any questions about taking your medications or which medications you should be taking?: No Do you need any medication refills at this time, including any of the medication you might take only when needed?: No Social: It can be normal to feel anxious or down during a time like this. Would you like to talk to a mental health professional about how you have been feeling?: No Symptoms: Are you experiencing any new or worsening symptoms that you need to talk about today?: No ADLs No documentation this encounter Fall Risk No documentation this encounter SDOH No documentation this encounter Interventions No episode Disposition Based on ruling machine feeder, the following disposition is advised: No action needed Navya Cervantes RN October 09, 2024 9:30 AM Allergies As of Date: 10/09/2024 Noted Allergy Reaction ACCUPRIL (QUINAPRIL HCL) 12/24/2004 3 - Cough SULFA (SULFONAMIDE ANTIBIOTICS) 12/24/2004 4 - Hives ATORVASTATIN 01/09/2016 17 - Myalgia BENZONATATE 01/09/2016 4 - Hives GABAPENTIN 01/14/2018 14 - Other: See Comments Comments: fatigue SIMVASTATIN 01/09/2016 14 - Other: See Comments Date Reviewed: 10/06/2024 Reviewed by: Chayo Blair MA - Fully Assessed Prescriptions as of 10/10/2024 - insulin glargine (LANTUS SOLOSTAR U-100 INSULIN) 100 unit/mL (3 mL) Inject 38 units subcutaneously every night - pantoprazole DR (PROTONIX) 40 mg tablet Take 1 tablet by mouth daily before breakfast. Take on empty stomach, 1/2 hr before meal. - furosemide (LASIX) 40 mg tablet Take 1 tablet by mouth once daily. - empagliflozin (JARDIANCE) 10 mg tablet Take 1 tablet by mouth daily with breakfast. - carvedilol (COREG) 25 mg tablet Take 1 tablet by mouth two times a day. - isosorbide mononitrate ER (IMDUR) 60 mg 24 hr tablet Take 1 tablet by mouth once daily. - levothyroxine (LEVOXYL) 75 mcg tablet Take 1 tablet by mouth once daily. - pravastatin (PRAVACHOL) 80 mg tablet Take 1 tablet by mouth daily at bedtime. - semaglutide (OZEMPIC) 2 mg/dose (8 mg/3 mL) pen injector Inject 2 mg subcutaneously one time a week. - amLODIPine (NORVASC) 2.5 mg tablet Take 1 tablet by mouth once daily. - citalopram (CELEXA) 20 mg tablet Take 1 tablet by mouth once daily. - folic acid 1 mg tablet Take 2 tablets by mouth once daily. - potassium chloride (K-TAB) 10 mEq tablet (more content not included)...[facility]07-[facility] Instructions * Patient Instructions* Sarah Cormier APRN.CNP - 10/06/2024 12:01 PM EDT - Increase your bedtime Lantus insulin to 32 units starting tonight and continue this dose for the next three days. - Continue Jardiance 10 mg once daily. - Use your remaining Ozempic until the supply runs out. - Continue taking Lasix as prescribed. - Test and record your blood sugar before breakfast and before bed each day. Call the office on Wednesday with your readings so we can decide on any further insulin adjustments. - Check and record your blood pressure before bed and before breakfast daily. Bring your home bloodpressure cuff to your next visit so we can confirm it is calibrated correctly. - At meals, remove noodles and pasta, fill most of your plate with vegetables, and add more protein. - Consider getting an emergency alert button or keep your cell phone on you at all times in case you need help. documented in this encounterMer[facility]07-25-2025 NoteHNO ID: [id number] Author: SARAH CORMIER APRN.CAR REFINISHER Service: ? Author Type: Nurse Practitioner Type: Progress Notes Filed: 10/06/2024 12:09 Note Text: 10/06/2024 Patient presents with: Recheck: BP follow up, fatigue Recording using ambient [employer] software for draft documentation of the visit was discussed with the patient/authorized security systems sales representative; all questions welcomed and answered. Patient/authorized security systems sales representative agreed to proceed SUBJECTIVE: This is a 89 year old, accompanied by daughter in law, that is here today for Above Complaints.. Hypertension: - Home BP readings improved after correcting BP cuff usage. - Recent readings: 120/60 mmHg, 130/60 mmHg. - Denies dizziness or lightheadedness. - Reports fatigue. - Resumed Lasix after holding it for a few days. Diabetes: - Recent A1c increased from 8.8% to 12%. - Blood glucose readings: 400s at night, 200s in the morning. - Lantus increased to 26 units at bedtime on 10/04; instructed to increase to 32 units if BG remains >200 mg/dL. - Currently taking Jardiance 10 mg daily. - Using remaining Ozempic supply; reports it was ineffective. - Diet includes toast with peanut butter and tea for breakfast, pork tenderloin, cucumber, mixed vegetables, noodles, and watermelon for lunch. - Occasionally snacks on popcorn or crackers. - Lives alone; uses a walker for mobility. PAST MEDICAL HISTORY Diagnosis Date Basal cell carcinoma Dr. Lambert Cholecystitis, unspecified Chronic kidney disease (CKD), stage IV (severe) ([facility]) Dr. Montgomery Coronary atherosclerosis of unspecified type of vessel, tulalip or graft Dr. Davenport Depression Hammertoes of both feet Multinodular goiter 05/21/2016 Osteoarthritis Other and unspecified anemias Pure hypercholesterolemia Sciatica Swelling of lower extremity Type II or unspecified type diabetes mellitus without mention of complication, not stated as uncontrolled Podiatry-Dr. Mcgee Unspecified essential hypertension Unspecified hypothyroidism ALLERGIES Accupril [Quinapril Hcl], Sulfa (Sulfonamide Antibiotics), Atorvastatin, Benzonatate, Gabapentin, and Simvastatin MEDICATIONS Current Outpatient Medications Medication Sig insulin glargine (LANTUS SOLOSTAR U-100 INSULIN) 100 unit/mL (3 mL) Inject 32 units subcutaneously every night pantoprazole DR (PROTONIX) 40 mg tablet Take 1 tablet by mouth daily before breakfast. Take on empty stomach, 1/2 hr before meal. furosemide (LASIX) 40 mg tablet Take 1 tablet by mouth once daily. empagliflozin (JARDIANCE) 10 mg tablet Take 1 tablet by mouth daily with breakfast. carvedilol (COREG) 25 mg tablet Take 1 tablet by mouth two times a day. isosorbide mononitrate ER (IMDUR) 60 mg 24 hr tablet Take 1 tablet by mouth once daily. levothyroxine (LEVOXYL) 75 mcg tablet Take 1 tablet by mouth once daily. pravastatin (PRAVACHOL) 80 mg tablet Take 1 tablet by mouth daily at bedtime. semaglutide (OZEMPIC) 2 mg/dose (8 mg/3 mL) pen injector Inject 2 mg subcutaneously one time a week. amLODIPine (NORVASC) 2.5 mg tablet Take 1 tablet by mouth once daily. citalopram (CELEXA) 20 mg tablet Take 1 tablet by mouth once daily. folic acid 1 mg tablet Take 2 tablets by mouth once daily. potassium chloride (K-TAB) 10 mEq tablet Take 1 tablet by mouth daily with breakfast. vit C,R-Mf-adtuj-lutein-zeaxan (PRESERVISION AREDS-2) 250-90-40-1 mg Take 1 capsule by mouth two times a day with meals. aspirin 81 mg cap Take 81 mg by mouth once daily. mecobalamin, vitamin B12, 1,000 mcg chew Take 1 tablet by mouth once daily. acetaminophen (TYLENOL) 500 mg tablet Take 2 tablets by mouth every 8 hours as needed for pain. blood sugar diagnostic (BLOOD GLUCOSE TEST) test strip Prodigy Glucometer Test blood sugar(s) 1 time daily. Dx: Type 2 DM - Controlled E11.9 Insulin: No nitroglycerin sublingual (NITROQUICK) 0.4 mg SL tablet Dissolve 1 tablet under the tongue as needed. DISSOLVE ONE(1) TABLET UNDER THE TOUNGUE NEEDED FOR CHEST PAIN,EVERY 5 MIN X3 Lancets lancets Test blood sugar(s) 1 times daily. Dx: Type 2 DM - Controlled E11.9 Insulin: No COMPOUNDED PRESCRIPTION Prodigy Glucometer test strips Test once daily. Dx: E11.9 Insulin: No Cholecalciferol, Vitamin D3, 1,000 unit cap Take 1 capsule by mouth once daily. COMPOUNDED PRESCRIPTION Lancets Test once daily. Dx: E11.9 Insulin: No Cranberry 500 mg cap Take 1 tablet by mouth once daily. XALATAN 0.005 % EYE DROPS Use 1 drop in both eyes daily at bedtime. No current facility-administered medications for this visit. Medications and allergies reviewed by this provider. SOCIAL HISTORY Social History Tobacco Use Smoking status: Never Smokeless tobacco: Never Vaping Use Vaping status: Never Used Substance Use Topics Alcohol use: Not Currently Drug use: Never REVIEW OF SYSTEMS All other reviewed and negative other than HPI. OBJECTIVE: BP 130/62 Pulse 78 Resp 16 Wt 65.8 kg (1 (more content not included)... [facility]07-[facility] History of Present illness Narrative* Sarah Cormier APRN.CAR REFINISHER - 10/06/2024 11:44 AM EDT 10/06/2024 Patient presents with: Recheck: BP follow up, fatigue Recording using [employer] software for draft documentation of the visit was discussed with the patient/authorized security systems sales representative; all questions welcomed and answered. Patient/authorized security systems sales representative agreed to proceed SUBJECTIVE: This is a 89 year old, accompanied by daughter in law, that is here today for Above Complaints.. Hypertension: - Home BP readings improved after correcting BP cuff usage. - Recent readings: 120/60 mmHg, 130/60 mmHg. - Denies dizziness or lightheadedness. - Reports fatigue. - Resumed Lasix after holding it for a few days. Diabetes: - Recent A1c increased from 8.8% to 12%. - Blood glucose readings: 400s at night, 200s in the morning. - Lantus increased to 26 units at bedtime on 10/04; instructed to increase to 32 units if BG remains >200 mg/dL. - Currently taking Jardiance 10 mg daily. - Using remaining Ozempic supply; reports it was ineffective. - Diet includes toast with peanut butter and tea for breakfast, pork tenderloin, cucumber, mixed vegetables, noodles, and watermelon for lunch. - Occasionally snacks on popcorn or crackers. - Lives alone; uses a walker for mobility. PAST MEDICAL HISTORY Diagnosis Date Basal cell carcinoma Dr. Lambert Cholecystitis, unspecified Chronic kidney disease (CKD), stage IV (severe) (HCC) Dr. Montgomery Coronary atherosclerosis of unspecified type of vessel, tulalip or graft Dr. Issac Pulliam Hammertoes of both feet Multinodular goiter 05/21/2016 Osteoarthritis Other and unspecified anemias Pure hypercholesterolemia Sciatica Swelling of lower extremity Type II or unspecified type diabetes mellitus without mention of complication, not stated as uncontrolled Podiatry-Dr. Mcgee Unspecified essential hypertension Unspecified hypothyroidism ALLERGIES Accupril [Quinapril Hcl], Sulfa (Sulfonamide Antibiotics), Atorvastatin, Benzonatate, Gabapentin, and Simvastatin MEDICATIONS Current Outpatient Medications Medication Sig insulin glargine (LANTUS SOLOSTAR U-100 INSULIN) 100 unit/mL (3 mL) Inject 32 units subcutaneously every night pantoprazole DR (PROTONIX) 40 mg tablet Take 1 tablet by mouth daily before breakfast. Take on empty stomach, 1/2 hr before meal. furosemide (LASIX) 40 mg tablet Take 1 tablet by mouth once daily. empagliflozin (JARDIANCE) 10 mg tablet Take 1 tablet by mouth daily with breakfast. carvedilol (COREG) 25 mg tablet Take 1 tablet by mouth two times a day. isosorbide mononitrate ER (IMDUR) 60 mg 24 hr tablet Take 1 tablet by mouth once daily. levothyroxine (LEVOXYL) 75 mcg tablet Take 1 tablet by mouth once daily. pravastatin (PRAVACHOL) 80 mg tablet Take 1 tablet by mouth daily at bedtime. semaglutide (OZEMPIC) 2 mg/dose (8 mg/3 mL) pen injector Inject 2 mg subcutaneously one time a week. amLODIPine (NORVASC) 2.5 mg tablet Take 1 tablet by mouth once daily. citalopram (CELEXA) 20 mg tablet Take 1 tablet by mouth once daily. folic acid 1 mg tablet Take 2 tablets by mouth once daily. potassium chloride (K-TAB) 10 mEq tablet Take 1 tablet by mouth daily with breakfast. vit C,F-Bn-jwhci-lutein-zeaxan (PRESERVISION AREDS-2) 250-90-40-1 mg Take 1 capsule by mouth two times a day with meals. aspirin 81 mg cap Take 81 mg by mouth once daily. mecobalamin, vitamin B12, 1,000 mcg chew Take 1 tablet by mouth once daily. acetaminophen (TYLENOL) 500 mg tablet Take 2 tablets by mouth every 8 hours as needed for pain. blood sugar diagnostic (BLOOD GLUCOSE TEST) test strip Prodigy Glucometer Test blood sugar(s) 1 time daily. Dx: Type 2 DM - Controlled E11.9 Insulin: No nitroglycerin sublingual (NITROQUICK) 0.4 mg SL tablet Dissolve 1 tablet under the tongue as needed. DISSOLVE ONE(1) TABLET UNDER THE TOUNGUE NEEDED FOR CHEST PAIN,EVERY 5 MIN X3 Lancets lancets Test blood sugar(s) 1 times daily. Dx: Type 2 DM - Controlled E11.9 Insulin: No COMPOUNDED PRESCRIPTION Prodigy Glucometer test strips Test once daily. Dx: E11.9 Insulin: No Cholecalciferol, Vitamin D3, 1,000 unit cap Take 1 capsule by mouth once daily. COMPOUNDED PRESCRIPTION Lancets Test once daily. Dx: E11.9 Insulin: No Cranberry 500 mg cap Take 1 tablet by mouth once daily. XALATAN 0.005 % EYE DROPS Use 1 drop in both eyes daily at bedtime. No current facility-administered medications for this visit. Medications and allergies reviewed by this provider. SOCIAL HISTORY Social History Tobacco Use Smoking status: Never Smokeless tobacco: Never Vaping Use Vaping status: Never Used Substance Use Topics Alcohol use: Not Currently Drug use: Never REVIEW OF SYSTEMS All other reviewed and negative other than HPI. OBJECTIVE: BP 130/62 Pulse 78 Resp 16 Wt 65.8 kg (145 lb) SpO2 96% BMI 29.29 kg/m . Vital signs reviewed by this provider. GENERAL: NAD, alert and oriented. Anxiety Screening Never done Medicare Annual Wellness Visit Never done Advance Directive Discussion Never done Shingrix Vaccine(1 of 2) due on 06/27/2025 RSV Vaccine(1 - 1-dose 75+ series) due on 09/26/2025 Influenza Vaccine(1) due on 11/13/2024 HbA1C due on 12/20/2024 Diabetic Foot Exam due on 06/22/2025 Urine Albumin:Creatinine Ratio due on 06/23/2025 LDL Cholesterol due on 06/23/2025 Dilated Retinal Exam due on 06/30/2025 DTaP,Tdap,Td Vaccine(6 - Td or Tdap) due on 06/22/2032 Bone Density Screening Completed Pneumococcal Vaccine: 50+ Completed 1. Type 2 diabetes mellitus with stage 3b chronic kidney disease, without long- term current use of insulin (HCC) (E11.22) - HbA1c increased from 8.8% to 12%; home blood glucose readings remain elevated (nighttime in 400s,morning in 200s). - Lantus increased to 26 units at bedtime on the ; instructed to increase to 32 units at bedtime starting tonight due to persistent hyperglycemia. - Continue Jardiance 10 mg daily. - Discontinue Ozempic once current supply is finished, per previous instructions. - Reviewed importance of dietary modifications; advised reducing intake of bread, pasta, noodles, and crackers, and increasing protein and vegetable consumption. - Explained that high blood glucose levels may be contributing to fatigue. - Continue home blood glucose monitoring; report readings on Wednesday for further insulin titration if needed. 2. Essential (primary) hypertension (I10) - Home BP readings improved after correcting BP cuff placement; in-office BP today 132/62 mmHg. - No dizziness or lightheadedness reported. - Continue current antihypertensive regimen. - Continue Lasix as previously prescribed. - Advised to bring BP cuff to next appointment to verify accuracy. - Continue home BP monitoring; record readings and report on Wednesday. Sarah Choudhurylogkatty, AIRCRAFT [employer].CAR REFINISHER Prescription instructions reviewed with patient as applicable. Patient advised if symptoms do not improve or if symptoms worsen sooner, to contact their primary care physician. Potential red flag symptoms discussed with the patient. Reviewed appropriate action plan to take if red flag symptoms occur. Patient agreeable to treatment plan. [id number] OVERALL COMPLEXITY Problem Complexity: Moderate Data Level: Straightforward Risk Level: Moderate Overall MDM complexity (2/3 must be met or exceeded): Moderate PROBLEMS SECTION: 1. Type 2 diabetes mellitus with stage 3b chronic kidney disease, without long- term current use of insulin (HCC) - Chronic illness with exacerbation, progression, or side effects of treatment 2. Essential (primary) hypertension - Stable, Chronic Illness One or more chronic illnesses with exacerbation, progression, or side effects of treatment (Moderate complexity) Problem complexity level: Moderate DATA SECTION: - Review of prior external note(s) from each unique source: - Review of the result(s) of each unique test: - Ordering of each unique test: - Assessment requiring an independent historian(s): - Independent interpretation of a test performed by another physician/other qualified health physician primary care sports medicine: - Discussion of management or test interpretation with external physician/other qualified health physician primary care sports medicine/appropriate source: Data complexity level: Minimal; minimal or no complexity requirements met RISKS SECTION: Prescription drug management (increase in Lantus insulin dose, continuation of Jardiance, discontinuation of Ozempic, continuation of antihypertensives and Lasix) - Moderate complexity Home blood glucose and blood pressure monitoring - Minimal complexity Dietary and lifestyle modification counseling - Minimal complexity Risks complexity level (highest from above): Moderate [facility] in [facility] Telephone encounter Note * Telephone Encounter - Sarah Cormier APRN.CNP - 10/04/2024 1:56 PM EDT Reviewed. Sarah Cromier APRN.CNP [facility]07-[facility] Miscellaneous Notes* Telephone Encounter - Sarah Cormier APRN.CNP - 10/04/2024 1:56 PM EDT Reviewed. Sarah Cormier APRN.RICHARD * Telephone Encounter - Edel Paredes LPN - 10/04/2024 1:36 PM EDT Patient telephoned and made aware of results and recommendations from provider. Patient read back x2 with understanding. Denies any symptoms of high BP. Appointment scheduled for tomorrow with Sarah Cormire for BP checkand home BP machine validation. Edel Paredes LPN * Telephone Encounter - Frank Fuentes MD - 10/04/2024 10:44 AM EDT Sugars are still running high with new rx for Lantus. Increase dose from 20 units to 26 units qhs and continue to monitor daily and if sugar is still running above 200 in the next 3 days she can increase to 32 units. Call with update on readings and insulin dose she is taking on Wednesday. BP at home is much higher than what we were getting here. Is she having symptoms of high BP including headache, Shortness of Breath, leg swelling, vision changes? If not, recommend she come in in the next 24 hours to get BP rechecked and bring home cuff with her. If symptomatic with BP >180/110 I would recommend ER. * Telephone Encounter - Suyapa Ronquillo LPN - 10/04/2024 10:16 AM EDT Patient calling with blood pressure and blood sugar readings for past 5 days for PCP, she said her BP was low in the office. Patient said she uses left arm, having problems getting cuff situated correctly on her arm, no one at home to assist her. she just sits down with arm up on a table and checksit. 09/29 7 am 155/80 no pulse written down 09/29 11 pm 173/80 no pulse / 7 am 211/118 no pulse / 11 pm 164/83 no pulse 7/20 7 am 232/134 no pulse 7/ 11 pm 193/86 no pulse 7/ 7 am 232/131 no pulse / 1130 pm 227/125 no pulse / 7 am 168/98 no pulse / 11 pm 188/103 no pulse / 8 am 188/103 no pulse Blood sugars 09/30 fasting 268 bedtime 388 10/01 fasting 310 bedtime 522 10/02 fasting 274 bedtime 366 10/03 fasting 286 bedtime 421 10/04 fasting 290 Patient said already knows what medications I take. documented in this encounter[facility]07-[facility] Telephone encounter Note * Telephone Encounter - Edel Paredes LPN - 10/04/2024 1:36 PM EDT Patient telephoned and made aware of results and recommendations from provider. Patient read back x2 with understanding. Denies any symptoms of high BP. Appointment scheduled for tomorrow with Sarah Cormier for BP checkand home BP machine validation. Edel Paredes LPN [facility]07-23-2025 Telephone encounter Note* Telephone Encounter - Frank Fuentes MD - 10/04/2024 10:44 AM EDT Sugars are still running high with new rx for Lantus. Increase dose from 20 units to 26 units qhs and continue to monitor daily and if sugar is still running above 200 in the next 3 days she can increase to 32 units. Call with update on readings and insulin dose she is taking on Wednesday. BP at home is much higher than what we were getting here. Is she having symptoms of high BP including headache, Shortness of Breath, leg swelling, vision changes? If not, recommend she come in in the next 24 hours to get BP rechecked and bring home cuff with her. If symptomatic with BP >180/110 I would recommend ER. [facility]07-23-2025 Telephone encounter Note* Telephone Encounter - Suyapa Ronquillo LPN - 10/04/2024 10:16 AM EDT Patient calling with blood pressure and blood sugar readings for past 5 days for PCP, she said her BP was low in the office. Patient said she uses left arm, having problems getting cuff situated correctly on her arm, no one at home to assist her. she just sits down with arm up on a table and checksit. 7 7 am 155/80 no pulse written down 09/29 11 pm 173/80 no pulse 09/30 7 am 211/118 no pulse 09/30 11 pm 164/83 no pulse 10/01 7 am 232/134 no pulse 10/01 11 pm 193/86 no pulse / 7 am 232/131 no pulse 10/02 1130 pm 227/125 no pulse 10/03 7 am 168/98 no pulse / 11 pm 188/103 no pulse 10/04 8 am 188/103 no pulse Blood sugars 09/30 fasting 268 bedtime 388 10/01 fasting 310 bedtime 522 10/02 fasting 274 bedtime 366 10/03 fasting 286 bedtime 421 10/04 fasting [address] already knows what medications I take. [facility]07-18-2025 Telephone encounter Note* Telephone Encounter - Clementina Pink LPN - 09/29/2024 2:02 PM EDT Pt. informed [facility] Work Phone: 1(676) 318-892007-18-2025 Telephone encounter Note* Telephone Encounter - Clementina Pink LPN - 09/29/2024 2:02 PM EDT ----- Message from Frank Fuentes MD sent at 09/29/2024 10:48 AM EDT ----- ----- Message from Clementina Pink LPN sent at 09/29/2024 8:26 AM EDT ----- Urine culture positive for e coli which is sensitive to her antibiotic. Push PO fluids and continueabx as prescribed. Feeling any better? How is her blood pressure today? [facility]07-18-2025 Miscellaneous Notes* Telephone Encounter - Clementina Stafford LPN - 09/29/2024 2:02 PM EDT Pt. informed * Telephone Encounter - Clementina Pink LPN - 09/29/2024 2:02 PM EDT ----- Message from Frank Fuentes MD sent at 09/29/2024 10:48 AM EDT ----- ----- Message from Clementina Pink LPN sent at 09/29/2024 8:26 AM EDT ----- Urine culture positive for e coli which is sensitive to her antibiotic. Push PO fluids and continueabx as prescribed. Feeling any better? How is her blood pressure today? * Telephone Encounter - Frank Fuentes MD - 09/29/2024 10:47 AM EDT BP elevated this morning. May resume her lasix. With sugar >250 I would have her increase her insulin dose to 20 units daily. Continue to check fasting sugars daily. Call on Wednesday with updated readings. * Telephone Encounter - Lorenza Adrian, RN - 09/29/2024 9:11 AM EDT Patient calls and wanted provider to know that her blood pressure this morning is 155/85. Patient'sfasting blood sugar this morning was 280. Lorenza Adrian, RN * Telephone Encounter - Clementina Pink LPN - 09/29/2024 8:25 AM EDT Pt. is feeling better. She will take bp later after she gets up. * Telephone Encounter - Clementina Pink LPN - 09/29/2024 8:25 AM EDT ----- Message from Frank Fuentes MD sent at 09/28/2024 2:49 PM EDT ----- Urine culture positive for e coli which is sensitive to her antibiotic. Push PO fluids and continueabx as prescribed. Feeling any better? How is her blood pressure today? [facility] Telephone encounter Note * Telephone Encounter - Frank Fuentes MD - 09/29/2024 10:47 AM EDT BP elevated this morning. May resume her lasix. With sugar >250 I would have her increase her insulin dose to 20 units daily. Continue to check fasting sugars daily. Call on Wednesday with updated readings. [facility]07-18-2025 Telephone encounter Note* Telephone Encounter - Lorenza Adrian RN - 09/29/2024 9:11 AM EDT Patient calls and wanted provider to know that her blood pressure this morning is 155/85. Patient'sfasting blood sugar this morning was 280. Lorenza Adrian RN [facility]07-18-2025 Telephone encounter Note* Telephone Encounter - Clementina Pink LPN - 09/29/2024 8:25 AM EDT Pt. is feeling better. She will take bp later after she gets up. [facility]07-18-2025 Telephone encounter Note* Telephone Encounter - Clementina Pink LPN - 09/29/2024 8:25 AM EDT ----- Message from Frank Fuentes MD sent at 09/28/2024 2:49 PM EDT ----- Urine culture positive for e coli which is sensitive to her antibiotic. Push PO fluids and continueabx as prescribed. Feeling any better? How is her blood pressure today? [facility]07-16-2025 Telephone encounter Note* Telephone Encounter - Rakel New MA - 09/27/2024 2:36 PM EDT Patient informed and states she will try and get her BP out of the packaging and take it. Will callwith readings. Rakel New MA [facility]07-16-2025 Miscellaneous Notes* Telephone Encounter - Rakel New MA - 09/27/2024 2:36 PM EDT Patient informed and states she will try and get her BP out of the packaging and take it. Will callwith readings. Rakel New MA * Telephone Encounter - Frank Fuentes MD - 09/27/2024 1:53 PM EDT I would have her check her BP today and call us in the morning with readings or sooner if <100/60. * Telephone Encounter - Rakel New MA - 09/27/2024 1:42 PM EDT Patient states she feels a little bit better but not much. Mentioned she had enough energy though to go to [facility] today and purchase a new BP cuff. Has not opened it yet and taken BP but, states shewill and she'll call in a few days with readings. She had no concerns. Rakel New MA * Telephone Encounter - Frank Fuentes MD - 09/27/2024 10:35 AM EDT Patient in yesterday and noted to have UTI with low BP. Advised to spanish moss picker BP cuff for home and check this morning and hold lasix for 2 days. How is she feeling this morning? Has she checked her BP? [facility] Telephone encounter Note * Telephone Encounter - Frank Fuentes MD - 09/27/2024 1:53 PM EDT I would have her check her BP today and call us in the morning with readings or sooner if <100/60. [facility]07-16-2025 Telephone encounter Note* Telephone Encounter - Rakel New MA - 09/27/2024 1:42 PM EDT Patient states she feels a little bit better but not much. Mentioned she had enough energy though to go to [facility] today and purchase a new BP cuff. Has not opened it yet and taken BP but, states shewill and she'll call in a few days with readings. She had no concerns. Rakel New MA [facility]07-16-2025 Telephone encounter Note* Telephone Encounter - Frank Fuentes MD - 09/27/2024 10:35 AM EDT Patient in yesterday and noted to have UTI with low BP. Advised to spanish moss picker BP cuff for home and check this morning and hold lasix for 2 days. How is she feeling this morning? Has she checked her BP? [facility]07-15-2025 Instructions* Patient Instructions* Frank Fuentes MD - 09/26/2024 2:27 PM EDT - Start Lantus (insulin glargine) 16 units once daily at bedtime, beginning as soon as you spanish moss picker the prescription. - On the day you start Lantus, stop taking your glipizide (10 mg twice daily). - Continue taking your Jardiance as usual. - Continue your weekly Ozempic injections until your current supply runs out. - Do not take your Lasix (water pill) for the next two days; resume all other blood pressure medications as prescribed. - Take Macrobid (nitrofurantoin) 100 mg twice daily for 5 days to treat your urinary tract infection; urine culture results will be reviewed in a few days to see if any changes are needed. - Drink plenty of water to help flush out the infection and support your blood pressure. - Check your blood sugar twice daily: once when you wake up and once before bed. Write down each reading and call in 1 week with an update on your readings so we can adjust your insulin. - If your blood sugars run above 250 mg/dL, call the office so we can discuss increasing your insulin dose. - If you experience severe thirst, dehydration, persistent stomach pain, nausea, vomiting, or confusion--go to the nearest emergency department or call 911. - Obtain an automatic arm-cuff blood pressure monitor and check your blood pressure each morning. Your blood pressure should be above 100/60 and below 140/90. If you feel lightheaded or dizzy, seek emergency care. - Cut back on sweets, breads, and pastas; focus on lean proteins and vegetables to help control your blood sugar. - We will call you tomorrow to check on your urinary symptoms and blood pressure. Please be available for that call. - Follow up in one month in our office to recheck your A1c and review your blood sugar control; youmay call weekly with your sugar readings to adjust your insulin dose as needed. - Please go to the ER with syymptoms of fever/chills, shortness of breath, abdominal pain, nausea, vomiting, dehydration, confusion, lightheadedness, or dizziness. documented in this encounterMer[facility]07-[facility]-2025 NoteHNO ID: [id number] Author: FRANK FUENTES MD Service: ? Author Type: Physician Type: Progress Notes Filed: 09/26/2024 15:10 Note Text: Chief Complaint Patient presents with: Follow Up Recording using Virally software for draft documentation of the visit was discussed with the patient/authorized security systems sales representative; all questions welcomed and answered. Patient/authorized security systems sales representative agreed to proceed HPI Neelam Ryan is a 89 year old female who presents here today for Above Complaints. Fatigue: - Persistent fatigue, described as tired and weak, with a desire to sleep frequently. - Reports feeling clumsy when tired. - Denies confusion, chest pain, palpitations, cough, wheezing, rash, nausea, emesis, or diarrhea. - Denies taking extra medications; uses a weekly pill organizer. Polyuria: - Increased urination, denies hematuria or dysuria. - Denies lower abdominal or flank pain. - Drinking a lot of fluids. Fall: - Fell 4-5 days ago while bending over to pick something up. - Landed on hands and knees, then rolled onto side. - Sustained a small bruise on the right hand and a minor abrasion on the right knee. - Denies hitting head, losing consciousness, or sustaining injuries to hip, side, or shoulder. - Denies current pain in hands or knees. Diabetes Mellitus: - Recent increase in Ozempic dosage from 1 to 2. - Started on Jardiance recently. - Taking all medications as prescribed. - Admits to poor adherence to diabetic diet, consuming more bread and pasta. - Reports frequent feelings of low energy and a desire to sleep. - Recent blood glucose readings in the 260s and 250s. - Previous insulin use discontinued when metformin was introduced; metformin was later discontinued due to kidney function concerns. - Recent blood work showed blood glucose of 246 mg/dL and A1c increased from 8.8% to 12%. Chronic Kidney Disease Stage 3: - Recent blood work showed stable kidney function. Past medical history, appointments, medications, allergies reviewed. Previous Medical History PAST MEDICAL HISTORY Diagnosis Date Basal cell carcinoma Dr. Lambert Cholecystitis, unspecified Chronic kidney disease (CKD), stage IV (severe) (HCC) Dr. Montgomery Coronary atherosclerosis of unspecified type of vessel, tulalip or graft Dr. Issac Pulliam Hammertoes of both feet Multinodular goiter 05/21/2016 Osteoarthritis Other and unspecified anemias Pure hypercholesterolemia Sciatica Swelling of lower extremity Type II or unspecified type diabetes mellitus without mention of complication, not stated as uncontrolled Podiatry-Dr. Mcgee Unspecified essential hypertension Unspecified hypothyroidism Previous Surgical History PAST SURGICAL HISTORY Procedure Laterality Date COLONOSCOPY FLX DX W/COLLJ SPEC WHEN PFRMD 01/30/2005 Colonoscopy COLONOSCOPY FLX DX W/COLLJ SPEC WHEN PFRMD 08/05/2015 Colonoscopy ESOPHAGOGASTRODUODENOSCOPY TRANSORAL DIAGNOSTIC 01/30/2005 EGD HEART CATHETERIZATION 09/2018 angiopasty of circumflex, 75% stenosis. LAD 80%. LAPAROSCOPY SURG CHOLECYSTECTOMY 12/02/2005 Cholecystectomy, lap PAST SURGICAL HISTORY OF hernia PAST SURGICAL HISTORY OF carpal tunnel both hands PAST SURGICAL HISTORY OF fingers different times PAST SURGICAL HISTORY OF trigger finger PAST SURGICAL HISTORY OF 06/21/2006 heart cath with stent placement [facility] PAST SURGICAL HISTORY OF 04/24/2008 vaginal hysterectomy, bladder suspension, rectocele PAST SURGICAL HISTORY OF 11/20/11 cardiac cath; percutaneous transluminal coronary angioplasty with stent @ [facility] PAST SURGICAL HISTORY OF left wrist surgery TOTAL THYROID LOBECTOMY UNI W/WO ISTHMUSECTOMY Right 05/21/2016 TRANSCATH STENT INIT VESSEL,PERCUT 08/18 Transcath stent init vessel percut LAD [place] [facility] Family History FAMILY HISTORY Problem Relation Age of Onset Diabetes Mother CAD, ANGIOPLASTY Diabetes Father DC other (DC) Brother other (OHS) Sister other (DC) Brother Heart Sister diabetic Heart Sister Heart Sister diabetic Heart Sister diabetic Patient Allergies ALLERGIES Allergen Reactions Accupril [Quinapril* Cough Sulfa (Sulfonamide * Hives Atorvastatin Myalgia Benzonatate Hives Gabapentin Other: See Comments fatigue Simvastatin Other: See Comments Current Medications Current Outpatient Medications on File Prior to Visit Medication Sig pantoprazole DR (PROTONIX) 40 mg tablet Take 1 tablet by mouth daily before breakfast. Take on empty stomach, 1/2 hr before meal. furosemide (LASIX) 40 mg tablet Take 1 tablet by mouth once daily. empagliflozin (JARDIANCE) 10 mg tablet Take 1 tablet by mouth daily with breakfast. carvedilol (COREG) 25 mg tablet Take 1 tablet by mouth two times a day. isosorbide mononitrate ER (IMDUR) 60 mg 24 hr tablet Take 1 tablet by mouth once daily. levothyroxine (LEVOXYL) 75 (more content not included)...[facility]07-15-2025 History of Present illness Narrative* Frank Fuentes MD - 09/26/2024 1:27 PM EDT Chief Complaint Patient presents with: Follow Up Recording using Virally software for draft documentation of the visit was discussed with the patient/authorized security systems sales representative; all questions welcomed and answered. Patient/authorized security systems sales representative agreed to proceed HPI Neelam Ryan is a 89 year old female who presents here today for Above Complaints. Fatigue: - Persistent fatigue, described as tired and weak, with a desire to sleep frequently. - Reports feeling clumsy when tired. - Denies confusion, chest pain, palpitations, cough, wheezing, rash, nausea, emesis, or diarrhea. - Denies taking extra medications; uses a weekly pill organizer. Polyuria: - Increased urination, denies hematuria or dysuria. - Denies lower abdominal or flank pain. - Drinking a lot of fluids. Fall: - Fell 4-5 days ago while bending over to pick something up. - Landed on hands and knees, then rolled onto side. - Sustained a small bruise on the right hand and a minor abrasion on the right knee. - Denies hitting head, losing consciousness, or sustaining injuries to hip, side, or shoulder. - Denies current pain in hands or knees. Diabetes Mellitus: - Recent increase in Ozempic dosage from 1 to 2. - Started on Jardiance recently. - Taking all medications as prescribed. - Admits to poor adherence to diabetic diet, consuming more bread and pasta. - Reports frequent feelings of low energy and a desire to sleep. - Recent blood glucose readings in the 260s and 250s. - Previous insulin use discontinued when metformin was introduced; metformin was later discontinueddue to kidney function concerns. - Recent blood work showed blood glucose of 246 mg/dL and A1c increased from 8.8% to 12%. Chronic Kidney Disease Stage 3: - Recent blood work showed stable kidney function. Past medical history, appointments, medications, allergies reviewed. Previous Medical History PAST MEDICAL HISTORY Diagnosis Date Basal cell carcinoma Dr. Lambert Cholecystitis, unspecified Chronic kidney disease (CKD), stage IV (severe) ([facility]) Dr. Montgomery Coronary atherosclerosis of unspecified type of vessel, tulalip or graft Dr. Issac Pulliam Hammertoes of both feet Multinodular goiter 05/21/2016 Osteoarthritis Other and unspecified anemias Pure hypercholesterolemia Sciatica Swelling of lower extremity Type II or unspecified type diabetes mellitus without mention of complication, not stated as uncontrolled Podiatry-Dr. Mcgee Unspecified essential hypertension Unspecified hypothyroidism Previous Surgical History PAST SURGICAL HISTORY Procedure Laterality Date COLONOSCOPY FLX DX W/COLLJ SPEC WHEN PFRMD 01/30/2005 Colonoscopy COLONOSCOPY FLX DX W/COLLJ SPEC WHEN PFRMD 08/05/2015 Colonoscopy ESOPHAGOGASTRODUODENOSCOPY TRANSORAL DIAGNOSTIC 01/30/2005 EGD HEART CATHETERIZATION 09/2018 angiopasty of circumflex, 75% stenosis. LAD 80%. LAPAROSCOPY SURG CHOLECYSTECTOMY 12/02/2005 Cholecystectomy, lap PAST SURGICAL HISTORY OF hernia PAST SURGICAL HISTORY OF carpal tunnel both hands PAST SURGICAL HISTORY OF fingers different times PAST SURGICAL HISTORY OF trigger finger PAST SURGICAL HISTORY OF 06/21/2006 heart cath with stent placement [facility] PAST SURGICAL HISTORY OF 04/24/2008 vaginal hysterectomy, bladder suspension, rectocele PAST SURGICAL HISTORY OF 11/20/11 cardiac cath; percutaneous transluminal coronary angioplasty with stent @ [facility] PAST SURGICAL HISTORY OF left wrist surgery TOTAL THYROID LOBECTOMY UNI W/WO ISTHMUSECTOMY Right 05/21/2016 TRANSCATH STENT INIT VESSEL,PERCUT 08/18 Transcath stent init vessel percut LAD [place] [facility] Family History FAMILY HISTORY Problem Relation Age of Onset Diabetes Mother CAD, ANGIOPLASTY Diabetes Father DC other (DC) Brother other (OHS) Sister other (DC) Brother Heart Sister diabetic Heart Sister Heart Sister diabetic Heart Sister diabetic Patient Allergies ALLERGIES Allergen Reactions Accupril [Quinapril* Cough Sulfa (Sulfonamide * Hives Atorvastatin Myalgia Benzonatate Hives Gabapentin Other: See Comments fatigue Simvastatin Other: See Comments Current Medications Current Outpatient Medications on File Prior to Visit Medication Sig pantoprazole DR (PROTONIX) 40 mg tablet Take 1 tablet by mouth daily before breakfast. Take on empty stomach, 1/2 hr before meal. furosemide (LASIX) 40 mg tablet Take 1 tablet by mouth once daily. empagliflozin (JARDIANCE) 10 mg tablet Take 1 tablet by mouth daily with breakfast. carvedilol (COREG) 25 mg tablet Take 1 tablet by mouth two times a day. isosorbide mononitrate ER (IMDUR) 60 mg 24 hr tablet Take 1 tablet by mouth once daily. levothyroxine (LEVOXYL) 75 mcg tablet Take 1 tablet by mouth once daily. pravastatin (PRAVACHOL) 80 mg tablet Take 1 tablet by mouth daily at bedtime. semaglutide (OZEMPIC) 2 mg/dose (8 mg/3 mL) pen injector Inject 2 mg subcutaneously one time a week. amLODIPine (NORVASC) 2.5 mg tablet Take 1 tablet by mouth once daily. citalopram (CELEXA) 20 mg tablet Take 1 tablet by mouth once daily. folic acid 1 mg tablet Take 2 tablets by mouth once daily. glipiZIDE (GLUCOTROL) 10 mg tablet Take 1 tablet (10 mg) by mouth two times a day before meals. potassium chloride (K-TAB) 10 mEq tablet Take 1 tablet by mouth daily with breakfast. vit C,Y-Fk-szgwe-lutein-zeaxan (PRESERVISION AREDS-2) 250-90-40-1 mg Take 1 capsule by mouth two times a day with meals. aspirin 81 mg cap Take 81 mg by mouth once daily. mecobalamin, vitamin B12, 1,000 mcg chew Take 1 tablet by mouth once daily. acetaminophen (TYLENOL) 500 mg tablet Take 2 tablets by mouth every 8 hours as needed for pain. blood sugar diagnostic (BLOOD GLUCOSE TEST) test strip Prodigy Glucometer Test blood sugar(s) 1 time daily. Dx: Type 2 DM - Controlled E11.9 Insulin: No nitroglycerin sublingual (NITROQUICK) 0.4 mg SL tablet Dissolve 1 tablet under the tongue as needed. DISSOLVE ONE(1) TABLET UNDER THE TOUNGUE NEEDED FOR CHEST PAIN,EVERY 5 MIN X3 Lancets lancets Test blood sugar(s) 1 times daily. Dx: Type 2 DM - Controlled E11.9 Insulin: No COMPOUNDED PRESCRIPTION Prodigy Glucometer test strips Test once daily. Dx: E11.9 Insulin: No Cholecalciferol, Vitamin D3, 1,000 unit cap Take 1 capsule by mouth once daily. COMPOUNDED PRESCRIPTION Lancets Test once daily. Dx: E11.9 Insulin: No Cranberry 500 mg cap Take 1 tablet by mouth once daily. XALATAN 0.005 % EYE DROPS Use 1 drop in both eyes daily at bedtime. No current facility-administered medications on file prior to visit. Social History Social History Tobacco Use Smoking status: Never Smokeless tobacco: Never Vaping Use Vaping status: Never Used Substance Use Topics Alcohol use: Not Currently Drug use: Never Review of Symptoms REVIEW OF SYSTEMS GENERAL: No weight loss, malaise or fevers RESPIRATORY: Negative for cough, hemoptysis, wheezing, COPD, dyspnea or shortness of breath CARDIOVASCULAR: Negative for chest pain, leg swelling, hypertension, CHF or palpitations GI: No nausea, vomiting, or diarrhea : See HPI SKIN: Negative for lesions, rash, and itching EXAM: BP (!) 88/38 Pulse 80 Temp 37.4 C (99.4 F) Ht 149.9 cm (4' 11) Wt 67.2 kg (148 lb 3.2 oz) SpO2 98% BMI 29.93 kg/m General Appearance: Well appearing, alert, in no acute distress, well-hydrated, well nourished.. Skin: Skin color, texture, turgor normal, no suspicious rashes or lesions. Lungs: Lungs clear to auscultation. No wheezing, rhonchi, rales.. Heart: RRR without murmur, gallop, or rubs. No ectopy. Abdomen: Normal abdominal exam, Abdomen soft, non-tender. Bowel sounds normal. No masses, organomegaly. Extremities: No deformities, edema, skin discoloration, clubbing or cyanosis. Good capillary refill. . Musculoskeletal: No joint swelling, deformity, or tenderness. Health Maintenance List Anxiety Screening Never done Medicare Annual Wellness Visit Never done Advance Directive Discussion Never done Shingrix Vaccine(1 of 2) due on 06/27/2025 RSV Vaccine(1 - 1-dose 75+ series) due on 09/26/2025 Influenza Vaccine(1) due on 11/13/2024 HbA1C due on 12/20/2024 Diabetic Foot Exam due on 06/22/2025 Urine Albumin:Creatinine Ratio due on 06/23/2025 LDL Cholesterol due on 06/23/2025 Dilated Retinal Exam due on 06/30/2025 DTaP,Tdap,Td Vaccine(6 - Td or Tdap) due on 06/22/2032 Bone Density Screening Completed Covid-19 Vaccine Completed Pneumococcal Vaccine: 50+ Completed Data reviewed Latest Ref Rng 06/23/2024 09/19/2024 Protein, Total 6.3 - 8.0 g/dL 7.5 6.9 Albumin 3.9 - 4.9 g/dL 4.4 4.4 Calcium 8.5 - 10.2 mg/dL 10.2 9.7 Bilirubin, Total 0.2 - 1.3 mg/dL 0.6 0.7 Alkaline Phosphatase 34 - 123 U/L 56 61 AST 13 - 35 U/L 20 12 (L) ALT 7 - 38 U/L 16 11 Glucose 74 - 99 mg/dL 185 (H) 246 (H) BUN 7 - 21 mg/dL 57 (H) 60 (H) Creatinine 0.58 - 0.96 mg/dL 1.35 (H) 1.49 (H) Sodium 136 - 144 mmol/L 135 (L) 133 (L) Potassium 3.7 - 5.1 mmol/L 4.7 4.6 Chloride 98 - 107 mmol/L 98 96 (L) CO2 22 - 30 mmol/L 25 21 (L) Anion Gap 8 - 15 mmol/L 12 16 (H) eGFR >=60 mL/min/1.73m 38 (L) 34 (L) Total Cholesterol, Nonfasting <200 mg/dL 132 Triglycerides, Nonfasting <150 mg/dL 102 HDL Cholesterol, Nonfasting >39 mg/dL 53 LDL Cholesterol Calculated, Nonfasting <100 mg/dL 59 Non HDL Cholesterol, Nonfasting <130 mg/dL 79 VLDL Cholesterol, Nonfasting <30 mg/dL 20 Total Chol/HDL Ratio, Nonfasting <5.10 mg/dL 2.49 LDL/HDL Ratio, Nonfasting <2.54 mg/dL 1.11 Creatinine, Ur Random (UCRR) 20.0 - 300.0 mg/dL 36.8 Albumin, Urine Random mg/L 25.3 Albumin/Creat Ratio <30 mg/g 69 (H) Hemoglobin A1C 4.3 - 5.6 % 8.8 (H) 12.0 (H) Estimated Average Glucose mg/dL 206 298 Vitamin D 25 Hydroxy 31.0 - 80.0 ng/mL 60.6 Vitamin B12 232 - 1,245 pg/mL >2,000 (H) Legend: (H) High (L) Low Latest Ref Rng 09/26/2024 GLUCOSE UA (POCT) Negative mg/dL 500 ! BILIRUBIN UA (POCT) Negative Negative KETONE UA (POCT) Negative mg/dL Negative SPECIFIC GRAVITY UA (POCT) 1.005 - 1.030 1.010 HEMOGLOBIN/BLOOD UA (POCT) Negative Trace-lysed ! PH UA (POCT) 4.5 - 8.0 5.5 PROTEIN UA (POCT) Negative mg/dL Negative UROBILINOGEN UA (POCT) Normal E.U./dL 0.2 NITRITE UA (POCT) Negative Positive ! LEUKOCYTES UA (POCT) Negative Moderate ! COLOR UA (POCT) Yellow CLARITY UA (POCT) Cloudy Legend: ! Abnormal 1. Type 2 diabetes mellitus with stage 3b chronic kidney disease, without long- term current use of insulin (HCC) (E11.22) - Hemoglobin A1c increased from 8.8% to 12%, indicating poor glycemic control; recent blood glucoselevels consistently in the 240-260 mg/dL range. - Initiated Lantus 16 units subcutaneously at bedtime; discontinue glipizide 10 mg BID upon initiation of Lantus. - Continue Jardiance and Ozempic. - Educated patient on insulin administration using an insulin pen; provided survival skills booklet. - Advised monitoring blood glucose levels twice daily (morning and bedtime); instructed to report readings above 250 mg/dL. - Discussed dietary modifications to reduce intake of carbohydrates and increase lean proteins and vegetables. - Scheduled follow-up in one month to reassess glycemic control; weekly phone check-ins to adjust insulin dosage as needed. 2. Urinary frequency (R35.0) 3. Acute cystitis without hematuria (N30.00) - Urinalysis positive for leukocytes, nitrites, and glucose; no ketones detected. - Initiated Macrobid 100 mg orally BID for 5 days. - Urine sample sent for culture and sensitivity. - Advised increased fluid intake to aid in flushing the urinary tract. - Will follow up on culture results and adjust antibiotic therapy if necessary. 4. Hypotension, unspecified hypotension type (I95.9) 5. Essential hypertension (I10) 6. Hypertensive kidney disease with stage 3b chronic kidney disease (HCC) (I12.9) - Blood pressure readings low at 90s/40s mmHg. - Held Lasix for two days to prevent further hypotension. - Advised patient to increase oral hydration. - Recommended purchasing an automatic arm blood pressure cuff for home monitoring. - Will reassess blood pressure control at next follow-up. 7. Fall in home, initial encounter (W19.XXXA) - Recent fall reported, no significant injuries sustained; minor abrasions on right knee and hand. - No pain or functional limitations observed on examination. - Advised caution to prevent future falls; monitor for any new symptoms or changes. I spent a total of 40 minutes on the date of the service which included preparing to see the patient, [id number] patient care, completing clinical documentation, obtaining and/or reviewing separately obtained history, performing a medically appropriate examination, counseling and educating the pat ient/family/caregiver, ordering medications, tests, or procedures, independently interpreting results (not separately reported), and communicating results to the patient/family/caregiver. Frank Fuentes MD documented [facility] NoteHNO ID: [id number] Author: LATANYA PAREDES RN Service: ? Author Type: Registered Nurse Type: Progress Notes Filed: 09/21/2024 16:12 Note Text: CDM Care Path Telephonic Outreach Provider Action/FYI Patient stated feel tired, had foot dr appt today,cut toe nail had in grow toe nail, denies issues or concerns. Patient identified by Name and Date of . Discussed care with patient. Program Details Chronic Disease Management Status: Enrolled Effective Dates: 06/13/2024 - present Responsible Staff: Cesar Crouch RN Support and Services: Diabetes, Hypertension, Chronic Kidney Disease (CKD) Program Goals Targets Target Due Completed Completed By Outcome Comprehensive CKD education provided 09/12/2024 09/21/2024 Latanya Paredes RN Complete Comprehensive Diabetes education provided 09/12/2024 09/21/2024 Latanya Paredes RN Complete Comprehensive HTN education provided 09/12/2024 09/21/2024 Latanya Paredes RN Complete Patient-stated goal addressed (add comment) 09/12/2024 08/24/2024 Lukasz Matos RN Complete Cont to get up and move General education provided (managing stress, where to go/how to contact, etc.) 07/13/2024 06/27/2024 Cesar Crouch RN Complete Biannual PCP visit addressed 09/12/2024 06/27/2024 Cesar Crouch RN Complete/Scheduled seen today 06/27/24 . f/u for 07/11/24 3 mos f/u 09/26/24 CKD lab care gaps addressed 09/12/2024 06/27/2024 Cesar Crouch RN Complete/Scheduled cmp 06/23/24 Diabetes lab care gaps addressed 09/12/2024 06/27/2024 Cesar Crouch RN Complete/Scheduled done 06/23/24 HTN lab care gaps addressed 09/12/2024 06/27/2024 Cesar Crouch RN Complete/Scheduled 06/23/24 Intake assessments completed: ADLs, Fall Risk, SDOH 07/13/2024 06/13/2024 Cesar Crouch RN Complete Annual Medicare Wellness visit addressed 09/12/2024 06/13/2024 Cesar Crouch RN Complete/Scheduled Annual Nephrology visit addressed 09/12/2024 06/13/2024 Cesar Crouch RN Complete/Scheduled Dr Montgomery at [facility] August 2024 Assessments CDM Assessment Medications: Do you have any questions about taking your medications or which medications you should be taking?: No Do you need any medication refills at this time, including any of the medication you might take only when needed?: No Social: It can be normal to feel anxious or down during a time like this. Would you like to talk to a mental health professional about how you have been feeling?: No Symptoms: Are you experiencing any new or worsening symptoms that you need to talk about today?: No ADLs No documentation this encounter Fall Risk No documentation this encounter SDOH No documentation this encounter Interventions The following were addressed during this visit: - Comprehensive HTN education provided - Month 1: Review Individual Blood Pressure Target (If established by provider) - Month 2: Provide HTN Education: High Blood Pressure AND Nutrition - Comprehensive Diabetes education provided - Month 2: Provide Diabetes Education: Diet Modification: Plate Method - Comprehensive CKD education provided - Month 1: Provide CKD Education: CKD Zones - Month 1: Provide CKD Education: About CKD - Month 2: Provide CKD Education: Renal Diet Basics - Month 2: Provide CKD Education: Controlling Potassium - Bi-Weekly Outreach (Recurring) Disposition Based on ruling machine feeder, the following disposition is advised: No action needed Latanya Paredes RN September 21, 2024 4:02 [facility]07-10-2025 History of Present illness Narrative* Latanya Paredes RN - 09/21/2024 4:02 PM EDT Images from the original note were not included. CDM Care Path Telephonic Outreach Provider Action/FYI Patient stated feel tired, had foot dr althea today,cut toe nail had in grow toe nail, denies issues or concerns. Patient identified by Name and Date of . Discussed care with patient. Program Details Chronic Disease Management Status: Enrolled Effective Dates: 06/13/2024 - present Responsible Staff: Cesar Crouch RN Support and Services: Diabetes, Hypertension, Chronic Kidney Disease (CKD) Program Goals Targets Target Due Completed Completed By Outcome Comprehensive CKD education provided 09/12/2024 09/21/2024 Latanya Paredes RN Complete Comprehensive Diabetes education provided 09/12/2024 09/21/2024 Latanya Paredes RN Complete Comprehensive HTN education provided 09/12/2024 09/21/2024 Latanya Paredes RN Complete Patient-stated goal addressed (add comment) 09/12/2024 08/24/2024 Lukasz Matos RN Complete Cont to get up and move General education provided (managing stress, where to go/how to contact, etc.) 07/13/2024 06/27/2024 Cesar Crouch RN Complete Biannual PCP visit addressed 09/12/2024 06/27/2024 Cesar Crouch RN Complete/Scheduled seen today 06/27/24 . f/u for 07/11/24 3 mos f/u 09/26/24 CKD lab care gaps addressed 09/12/2024 06/27/2024 Cesar Crouch RN Complete/Scheduled cmp 06/23/24 Diabetes lab care gaps addressed 09/12/2024 06/27/2024 Cesar Crouch RN Complete/Scheduled done 06/23/24 HTN lab care gaps addressed 09/12/2024 06/27/2024 Cesar Crouch RN Complete/Scheduled 06/23/24 Intake assessments completed: ADLs, Fall Risk, SDOH 07/13/2024 06/13/2024 Cesar Crouch RN Complete Annual Medicare Wellness visit addressed 09/12/2024 06/13/2024 Cesar Crouch RN Complete/Scheduled Annual Nephrology visit addressed 09/12/2024 06/13/2024 Cesar Crouch RN Complete/Scheduled Dr Montgomery at [facility] - August 2024 Assessments CDM Assessment Medications: Do you have any questions about taking your medications or which medications you should be taking?:No Do you need any medication refills at this time, including any of the medication you might take only when needed?: No Social: It can be normal to feel anxious or down during a time like this. Would you like to talk to a mental health professional about how you have been feeling?: No Symptoms: Are you experiencing any new or worsening symptoms that you need to talk about today?: No ADLs No documentation this encounter Fall Risk No documentation this encounter SDOH No documentation this encounter Interventions The following were addressed during this visit: - Comprehensive HTN education provided - Month 1: Review Individual Blood Pressure Target (If established by provider) - Month 2: Provide HTN Education: High Blood Pressure & Nutrition - Comprehensive Diabetes education provided - Month 2: Provide Diabetes Education: Diet Modification: Plate Method - Comprehensive CKD education provided - Month 1: Provide CKD Education: CKD Zones - Month 1: Provide CKD Education: About CKD - Month 2: Provide CKD Education: Renal Diet Basics - Month 2: Provide CKD Education: Controlling Potassium - Bi-Weekly Outreach (Recurring) Disposition Based on ruling machine feeder, the following disposition is advised: No action needed Latanya Paredes RN September 21, 2024 4:02 PM documented in this encounterMer[facility]07-10-2025 NoteHNO ID: [id number] Author: BECKA ESCOBEDO LPN Service: ? Author Type: LICENSED NURSE Type: Progress Notes Filed: 09/21/2024 13:29 Note Text: AMB ROOMING INTAKE FLOWSHEET DATA Patient presents with: Left Foot - Nail Care Right Foot - Nail Care [facility] History of Present illness Narrative* Becka Escobedo LPN - 09/21/2024 1:12 PM EDT AMB ROOMING INTAKE FLOWSHEET DATA Patient presents with: Left Foot - Nail Care Right Foot - Nail Care Becka Escobedo LPN * Karolina Mcgee - 09/21/2024 1:08 PM EDT Last saw pcp: 07/11/24 Subjective: Patient presents to clinic c/o painful toenails. They state that the nails are especially painful with shoe gear and pressure. Patient states that nails b/l hallux are painful. She tends to develop ingrown toenails of b/l hallux. Patient admits to being diabetic. Last A1c this month >12. No other pedal complaints at this time. Patient states no change in medications or medical history since last visit. Objective: Patient presents to clinic ambulating in diabetic shoes Vasc: DP and PT pulses are nonpalpable bilateral. CFT is less than 5 seconds bilateral. Skin temperature is warm to cool proximal to distal bilateral. There is moderate edema or varicosities noted. Neuro: Protective sensation is decreased to the foot and toes when tested with the 5.07 SWM bilateral. Vibratory sensation is decreased at the hallux IPJ bilateral. The hallux is downgoing bilateral. Derm: Nails 1-5 b/l are painful, discolored-yellow, thick, crumbly, dystrophic and with subungal debris. Ingrowing toenail without infection is present to b/l hallux. Skin is of normal turgor, texture and hair growth is decreased bilateral. There are no hyperkeratosis, ulcerations, scars, verruca or other lesions noted. Ortho: Muscle strength is 5/5 for all pedal groups tested. Ankle joint DF is decreased with the knee extended with no pain or crepitus noted. 1st MPJ ROM is decreased bilateral. Hammertoe is present to right 2nd toe Assessment: (B35.1) Onychomycosis (primary encounter diagnosis) (M79.674) Pain in toe of right foot (M79.675) Pain in toe of left foot (E11.9) Type 2 diabetes mellitus without complication, without long-term current use of insulin ([facility]) Plan: Patient was seen and evaluated. Nails 1-5 bilateral were debrided in length and thickness. Discussed ingrowing toenail of b/l hallux. Discussed possible matrixectomy, either partial or total. Would need to have A1c less than 8 to consider and would recommend getting a pvr prior. Patient isgoing to hold on procedure or thought of procedure at this time. Discussed hammertoe of right 2nd toe. Continue with a wider shoe or diabetic shoe to avoid rubbing. Patient was instructed on the continued importance of diabetic foot care along with proper diet andkeeping their blood sugar under control to prevent complications. I stressed the importance of avoiding barefoot walking, wearing good shoes and inspection of feet. Patient is to RTC in 3-4 months. Karolina Mcgee DPM documented in this encounterMer[facility]07-10-2025 Instructions* Patient Instructions* Karolina Mcgee - 09/21/2024 1:09 PM EDT Diabetes Foot Care Instructions When you have diabetes, proper foot care is very important. Poor foot care may lead to amputation of a foot or leg. As a person with diabetes, you are more vulnerable to foot problems, because diabetes can damage your nerves and reduce blood flow to your feet. Here are some diabetes foot care tips to follow: Wash and Dry Your Feet Daily Use mild soaps Use warm water Pat your skin dry; do not rub. Thoroughly dry your feet. After washing, use lotion on your feet to prevent cracking. Do not put lotion between your toes. Examine Your Feet Each Day Check the tops and bottoms of your feet. Have someone else look at your feet if you cannot see them. Check for dry, cracked skin. Look for blisters, cuts, scratches, or other sores. Check for redness, increased warmth, or tenderness when touching any area of your feet. Check for ingrown toenails, corns, and calluses. If you get a blister or sore from your shoes, do not pop it. Apply a bandage and wear a differentpair of shoes. Take Care of Your Toenails Cut toenails after bathing, when they are soft. Cut toenails straight across and smooth with a nail file. Avoid cutting into the corners of toes. Do not cut cuticles. If you have neuropathy (or decreased sensation in your feet) a finish saw operator should always cut your toenails. Be Careful When Exercising Walk and exercise in comfortable shoes. Do not exercise when you have open sores on your feet. Protect Your Feet With Shoes and Socks Never go barefoot. Always protect your feet by wearing shoes or hard-soled slippers or footwear. Avoid shoes with high heels and pointed toes. Avoid shoes that expose your toes or heels (such as open-toed shoes or sandals). These types of shoes increase your risk for injury and potential infections. Try on new footwear with the type of socks you usually wear. Do not wear new shoes for more than an hour at a time. Change your socks daily. Look and feel inside your shoes before putting them on to make sure there are no foreign objects orrough areas. Avoid tight socks. Wear natural-fiber socks (cotton, wool, or a cotton-wool blend). Wear special shoes if your health care provider recommends them. Wear shoes/boots that will protect your feet from various weather conditions (cold, moisture, etc.). Make sure your shoes fit properly. If you have neuropathy (nerve damage), you may not notice that your shoes are too tight. Perform the footwear test described below. Footwear Test Use this simple test to see if your shoes fit correctly: Stand on a piece of paper. (Make sure you are standing and not sitting, because your foot changes shape when you stand.) Trace the outline of your foot. Trace the outline of your shoe. Compare the tracings: Is the shoe too narrow? Is your foot crammed into the shoe? The shoe should be at least 1/2 inch longer than your longest toe and as wide as your foot. Proper Shoe Choices The following types of shoes are best for people with diabetes Closed toes and heels Leather uppers without a seam inside At least 1/2 inch extra space at the end of your longest toe Inside of shoe should be soft with no rough areas Outer sole should be made of stiff material Shoes should be at least as wide as your feet Tips for Foot Care in Diabetes Don't wait to treat a minor foot problem if you have diabetes. Follow your health care provider's guidelines and first aid guidelines. Report foot injuries and infections to your health care provider immediately. Check water temperature with your elbow, not your foot. Do not use a heating pad on your feet. Do not cross your legs. Do not self-treat your corns, calluses, or other foot problems. Go to your health care provider or finish saw operator to treat these conditions. documented in this encounterMercy Health [facility]07-10-2025 NoteHNO ID: [id number] Author: KAROLINA MCGEE, ? Service: ? Author Type: Physician Type: Progress Notes Filed: 09/21/2024 13:29 Note Text: Last saw pcp: 07/11/24 Subjective: Patient presents to clinic c/o painful toenails. They state that the nails are especially painful with shoe gear and pressure. Patient states that nails b/l hallux are painful. She tends to develop ingrown toenails of b/l hallux. Patient admits to being diabetic. Last A1c this month >12. No other pedal complaints at this time. Patient states no change in medications or medical history since last visit. Objective: Patient presents to clinic ambulating in diabetic shoes Vasc: DP and PT pulses are nonpalpable bilateral. CFT is less than 5 seconds bilateral. Skin temperature is warm to cool proximal to distal bilateral. There is moderate edema or varicosities noted. Neuro: Protective sensation is decreased to the foot and toes when tested with the 5.07 SWM bilateral. Vibratory sensation is decreased at the hallux IPJ bilateral. The hallux is downgoing bilateral. Derm: Nails 1-5 b/l are painful, discolored-yellow, thick, crumbly, dystrophic and with subungal debris. Ingrowing toenail without infection is present to b/l hallux. Skin is of normal turgor, texture and hair growth is decreased bilateral. There are no hyperkeratosis, ulcerations, scars, verruca or other lesions noted. Ortho: Muscle strength is 5/5 for all pedal groups tested. Ankle joint DF is decreased with the knee extended with no pain or crepitus noted. 1st MPJ ROM is decreased bilateral. Hammertoe is present to right 2nd toe Assessment: (B35.1) Onychomycosis (primary encounter diagnosis) (M79.674) Pain in toe of right foot (M79.675) Pain in toe of left foot (E11.9) Type 2 diabetes mellitus without complication, without long-term current use of insulin (HCC) Plan: Patient was seen and evaluated. Nails 1-5 bilateral were debrided in length and thickness. Discussed ingrowing toenail of b/l hallux. Discussed possible matrixectomy, either partial or total. Would need to have A1c less than 8 to consider and would recommend getting a pvr prior. Patient is going to hold on procedure or thought of procedure at this time. Discussed hammertoe of right 2nd toe. Continue with a wider shoe or diabetic shoe to avoid rubbing. Patient was instructed on the continued importance of diabetic foot care along with proper diet and keeping their blood sugar under control to prevent complications. I stressed the importance of avoiding barefoot walking, wearing good shoes and inspection of feet. Patient is to RTC in 3-4 months. Karolina Mcgee [facility]07-10-2025 NotePatient Outreach ([facility]) NEELAM RYAN ([id number]) 1935 F Date Time Provider Department 09/21/24 LATANYA PAREDES During your visit today, we recorded the following information about you: Latanya Paredes, MARIVEL 09/21/2024 4:12 PM Signed [facility] Care Path Telephonic Outreach Provider Action/FYI Patient stated feel tired, had foot dr appt today,cut toe nail had in grow toe nail, denies issues or concerns. Patient identified by Name and Date of . Discussed care with patient. Program Details Chronic Disease Management Status: Enrolled Effective Dates: 06/13/2024 - present Responsible Staff: Cesar Crouch, MARIVEL Support and Services: Diabetes, Hypertension, Chronic Kidney Disease (CKD) Program Goals Targets Target Due Completed Completed By Outcome Comprehensive CKD education provided 09/12/2024 09/21/2024 Latanya Paredes, RN Complete Comprehensive Diabetes education provided 09/12/2024 09/21/2024 Latanya Paredes RN Complete Comprehensive HTN education provided 09/12/2024 09/21/2024 Latanya Paredes, MARIVEL Complete Patient-stated goal addressed (add comment) 09/12/2024 08/24/2024 Lukasz Matos, MARIVEL Complete Cont to get up and move General education provided (managing stress, where to go/how to contact, etc.) 07/13/2024 06/27/2024 Cesar Crouch RN Complete Biannual PCP visit addressed 09/12/2024 06/27/2024 Cesar Crouch RN Complete/Scheduled seen today 06/27/24 . f/u for 07/11/24 3 mos f/u 09/26/24 CKD lab care gaps addressed 09/12/2024 06/27/2024 Cesar Crouch RN Complete/Scheduled cmp 06/23/24 Diabetes lab care gaps addressed 09/12/2024 06/27/2024 Cesar Crouch RN Complete/Scheduled done 06/23/24 HTN lab care gaps addressed 09/12/2024 06/27/2024 Cesar Crouch RN Complete/Scheduled 06/23/24 Intake assessments completed: ADLs, Fall Risk, SDOH 07/13/2024 06/13/2024 Cesar Crouch RN Complete Annual Medicare Wellness visit addressed 09/12/2024 06/13/2024 Cesar Crouch RN Complete/Scheduled Annual Nephrology visit addressed 09/12/2024 06/13/2024 Cesar Crouch RN Complete/Scheduled Dr Montgomery at [facility] - August 2024 Assessments CDM Assessment Medications: Do you have any questions about taking your medications or which medications you should be taking?: No Do you need any medication refills at this time, including any of the medication you might take only when needed?: No Social: It can be normal to feel anxious or down during a time like this. Would you like to talk to a mental health professional about how you have been feeling?: No Symptoms: Are you experiencing any new or worsening symptoms that you need to talk about today?: No ADLs No documentation this encounter Fall Risk No documentation this encounter SDOH No documentation this encounter Interventions The following were addressed during this visit: - Comprehensive HTN education provided - Month 1: Review Individual Blood Pressure Target (If established by provider) - Month 2: Provide HTN Education: High Blood Pressure AND Nutrition - Comprehensive Diabetes education provided - Month 2: Provide Diabetes Education: Diet Modification: Plate Method - Comprehensive CKD education provided - Month 1: Provide CKD Education: CKD Zones - Month 1: Provide CKD Education: About CKD - Month 2: Provide CKD Education: Renal Diet Basics - Month 2: Provide CKD Education: Controlling Potassium - Bi-Weekly Outreach (Recurring) Disposition Based on ruling machine feeder, the following disposition is advised: No action needed Latanya Paredes RN September 21, 2024 4:02 PM Allergies As of Date: 09/21/2024 Noted Allergy Reaction ACCUPRIL (QUINAPRIL HCL) 12/24/2004 3 - Cough SULFA (SULFONAMIDE ANTIBIOTICS) 12/24/2004 4 - Hives ATORVASTATIN 01/09/2016 17 - Myalgia BENZONATATE 01/09/2016 4 - Hives GABAPENTIN 01/14/2018 14 - Other: See Comments Comments: fatigue SIMVASTATIN 01/09/2016 14 - Other: See Comments Date Reviewed: 09/21/2024 Reviewed by: Becka Escobedo LPN - Fully Assessed Prescriptions as of 10/05/2024 - insulin glargine (LANTUS SOLOSTAR U-100 INSULIN) 100 unit/mL (3 mL) Inject 26 Units subcutaneously daily at bedtime. - pantoprazole DR (PROTONIX) 40 mg tablet Take 1 tablet by mouth daily before breakfast. Take on empty stomach, 1/2 hr before meal. - furosemide (LASIX) 40 mg tablet Take 1 tablet by mouth once daily. - empagliflozin (JARDIANCE) 10 mg tablet Take 1 tablet by mouth daily with breakfast. - carvedilol (COREG) 25 mg tablet Take 1 tablet by mouth two times a day. - isosorbide mononitrate ER (IMDUR) 60 mg 24 hr tablet Take 1 tablet by mouth once daily. - levothyroxine (LEVOXYL) 75 mcg tablet Take 1 tablet by mouth once daily. - pravastatin (PRAVACHOL) 80 mg tablet Take 1 tablet by mouth daily at bedtime. - semaglutide (OZEMPIC) 2 mg/dose (8 mg/3 mL) pen injector Inject 2 mg subcutaneously o (more content not included)...[facility]06-26-2025 NoteHNO ID: [id number] Author: LINDA ALMEIDA RN Service: ? Author Type: Registered Nurse Type: Progress Notes Filed: 09/07/2024 13:58 Note Text: CDM Care Path Telephonic Outreach Provider Action/FYI Patient identified by Name and Date of . Discussed care with patient. Spoke with patient, denies chest pain, some sob with exertion-not new-quickly resolves, no fever/chills, no BLE edema, weight 150 lbs today, does not check her BP-encouraged her to purchase a BP monitor, discussed blood glucose, todays reading 245 before meds this am, states she will only see PCP for her diabetes, taking her medications as directed, does have her eyes checked every 6 mos at the [facility], eating/drinking, discussed added sugars to avoid, has PCP appt 09/26/24, states she does see a assembly room supervisor in [place]-not part of clinic and could not remember his name, overall she states she feels good Program Details Chronic Disease Management Status: Enrolled Effective Dates: 06/13/2024 - present Responsible Staff: Cesar Crouch, MARIVEL Support and Services: Diabetes, Hypertension, Chronic Kidney Disease (CKD) Program Goals Targets Target Due Completed Completed By Outcome Comprehensive CKD education provided 09/12/2024 -- -- -- Comprehensive Diabetes education provided 09/12/2024 -- -- -- Comprehensive HTN education provided 09/12/2024 -- -- -- Patient-stated goal addressed (add comment) 09/12/2024 08/24/2024 Lukasz Matos RN Complete Cont to get up and move General education provided (managing stress, where to go/how to contact, etc.) 07/13/2024 06/27/2024 Cesar Crouch RN Complete Biannual PCP visit addressed 09/12/2024 06/27/2024 Cesar Crouch RN Complete/Scheduled seen today 06/27/24 . f/u for 07/11/24 3 mos f/u 09/26/24 CKD lab care gaps addressed 09/12/2024 06/27/2024 Cesar Crouch RN Complete/Scheduled cmp 06/23/24 Diabetes lab care gaps addressed 09/12/2024 06/27/2024 Cesar Crouch, MARIVEL Complete/Scheduled done 06/23/24 HTN lab care gaps addressed 09/12/2024 06/27/2024 Cesar Crouch RN Complete/Scheduled 06/23/24 Intake assessments completed: ADLs, Fall Risk, SDOH 07/13/2024 06/13/2024 Cesar Crouch RN Complete Annual Medicare Wellness visit addressed 09/12/2024 06/13/2024 Cesar Crouch RN Complete/Scheduled Annual Nephrology visit addressed 09/12/2024 06/13/2024 Cesar Crouch RN Complete/Scheduled Dr Montgomery at [facility] - August 2024 Assessments CDM Assessment Medications: Do you have any questions about taking your medications or which medications you should be taking?: No Do you need any medication refills at this time, including any of the medication you might take only when needed?: No Social: It can be normal to feel anxious or down during a time like this. Would you like to talk to a mental health professional about how you have been feeling?: No Symptoms: Are you experiencing any new or worsening symptoms that you need to talk about today?: No ADLs No documentation this encounter Fall Risk No documentation this encounter SDOH No documentation this encounter Interventions The following were addressed during this visit: - Month 2: Provide HTN Education: Sodium Controlled Diets - Month 3: Provide HTN Education: Understanding Medications - Month 3: Provide HTN Education: Medication Compliance - Month 1: Schedule Diabetes Eye Exam - Month 2: Provide Diabetes Education: Diet Modification: Added Sugars in Drinks - Month 3: Provide Diabetes Education: Medication Adherence/Compliance - Month 3: Provide Diabetes Education: Understanding Medication - Month 1: Provide General Education: Managing Stress AND Anxiety - Bi-Weekly Outreach (Recurring) Disposition Based on ruling machine feeder, the following disposition is advised: No action needed Linda Almeida RN September 07, 2024 1:52 [facility]06-26-2025 History of Present illness Narrative* Linda Almeida RN - 09/07/2024 1:42 PM EDT Images from the original note were not included. CDM Care Path Telephonic Outreach Provider Action/FYI Patient identified by Name and Date of . Discussed care with patient. Spoke with patient, denies chest pain, some sob with exertion-not new-quickly resolves, no fever/chills, no BLE edema, weight 150 lbs today, does not check her BP-encouraged her to purchase a BP monitor, discussed blood glucose, todays reading 245 before meds this am, states she will only see PCP for her diabetes, taking her medications as directed, does have her eyes checked every 6 mos at the [facility], eating/drinking, discussed added sugars to avoid, has PCP appt 09/26/24, states she does see a assembly room supervisor in [place]-not part of clinic and could not remember his name, overall she states she feels good Program Details Chronic Disease Management Status: Enrolled Effective Dates: 06/13/2024 - present Responsible Staff: Cesar Crouch RN Support and Services: Diabetes, Hypertension, Chronic Kidney Disease (CKD) Program Goals Targets Target Due Completed Completed By Outcome Comprehensive CKD education provided 09/12/2024 -- -- -- Comprehensive Diabetes education provided 09/12/2024 -- -- -- Comprehensive HTN education provided 09/12/2024 -- -- -- Patient-stated goal addressed (add comment) 09/12/2024 08/24/2024 Lukasz Matos RN Complete Cont to get up and move General education provided (managing stress, where to go/how to contact, etc.) 07/13/2024 06/27/2024 Cesar Crouch RN Complete Biannual PCP visit addressed 09/12/2024 06/27/2024 Cesar Crouch RN Complete/Scheduled seen today 06/27/24 . f/u for 07/11/24 3 mos f/u 09/26/24 CKD lab care gaps addressed 09/12/2024 06/27/2024 Cesar Crouch RN Complete/Scheduled cmp 06/23/24 Diabetes lab care gaps addressed 09/12/2024 06/27/2024 Cesar Crouch RN Complete/Scheduled done 06/23/24 HTN lab care gaps addressed 09/12/2024 06/27/2024 Cesar Crouch RN Complete/Scheduled 06/23/24 Intake assessments completed: ADLs, Fall Risk, SDOH 07/13/2024 06/13/2024 Cesar Crouch RN Complete Annual Medicare Wellness visit addressed 09/12/2024 06/13/2024 Cesar Crouch RN Complete/Scheduled Annual Nephrology visit addressed 09/12/2024 06/13/2024 Cesar Crouch RN Complete/Scheduled Dr Montgomery at [facility] - August 2024 Assessments CDM Assessment Medications: Do you have any questions about taking your medications or which medications you should be taking?:No Do you need any medication refills at this time, including any of the medication you might take only when needed?: No Social: It can be normal to feel anxious or down during a time like this. Would you like to talk to a mental health professional about how you have been feeling?: No Symptoms: Are you experiencing any new or worsening symptoms that you need to talk about today?: No ADLs No documentation this encounter Fall Risk No documentation this encounter SDOH No documentation this encounter Interventions The following were addressed during this visit: - Month 2: Provide HTN Education: Sodium Controlled Diets - Month 3: Provide HTN Education: Understanding Medications - Month 3: Provide HTN Education: Medication Compliance - Month 1: Schedule Diabetes Eye Exam - Month 2: Provide Diabetes Education: Diet Modification: Added Sugars in Drinks - Month 3: Provide Diabetes Education: Medication Adherence/Compliance - Month 3: Provide Diabetes Education: Understanding Medication - Month 1: Provide General Education: Managing Stress & Anxiety - Bi-Weekly Outreach (Recurring) Disposition Based on ruling machine feeder, the following disposition is advised: No action needed Linda Almeida RN September 07, 2024 1:52 PM [facility] NotePatient Outreach ([facility]) NEELAM RYAN ([id number]) 1935 F Date Time Provider Department 09/07/24 LINDA ALMEIDA During your visit today, we recorded the following information about you: Linda Almeida, MARIVEL 09/07/2024 1:58 PM Signed CDM Care Path Telephonic Outreach Provider Action/ Patient identified by Name and Date of . Discussed care with patient. Spoke with patient, denies chest pain, some sob with exertion-not new-quickly resolves, no fever/chills, no BLE edema, weight 150 lbs today, does not check her BP-encouraged her to purchase a BP monitor, discussed blood glucose, todays reading 245 before meds this am, states she will only see PCP for her diabetes, taking her medications as directed, does have her eyes checked every 6 mos at the [facility], eating/drinking, discussed added sugars to avoid, has PCP appt 09/26/24, states she does see a assembly room supervisor in [place]-not part of clinic and could not remember his name, overall she states she feels good Program Details Chronic Disease Management Status: Enrolled Effective Dates: 06/13/2024 - present Responsible Staff: Cesar Crouch RN Support and Services: Diabetes, Hypertension, Chronic Kidney Disease (CKD) Program Goals Targets Target Due Completed Completed By Outcome Comprehensive CKD education provided 09/12/2024 -- -- -- Comprehensive Diabetes education provided 09/12/2024 -- -- -- Comprehensive HTN education provided 09/12/2024 -- -- -- Patient-stated goal addressed (add comment) 09/12/2024 08/24/2024 Lukasz Matos RN Complete Cont to get up and move General education provided (managing stress, where to go/how to contact, etc.) 07/13/2024 06/27/2024 Cesar Crouch RN Complete Biannual PCP visit addressed 09/12/2024 06/27/2024 Cesar Crouch RN Complete/Scheduled seen today 06/27/24 . f/u for 07/11/24 3 mos f/u 09/26/24 CKD lab care gaps addressed 09/12/2024 06/27/2024 Cesar Crouch RN Complete/Scheduled cmp 06/23/24 Diabetes lab care gaps addressed 09/12/2024 06/27/2024 Cesar Crouch RN Complete/Scheduled done 06/23/24 HTN lab care gaps addressed 09/12/2024 06/27/2024 Cesar Crouch RN Complete/Scheduled 06/23/24 Intake assessments completed: ADLs, Fall Risk, SDOH 07/13/2024 06/13/2024 Cesar Crouch, MARIVEL Complete Annual Medicare Wellness visit addressed 09/12/2024 06/13/2024 Cesar Crouch RN Complete/Scheduled Annual Nephrology visit addressed 09/12/2024 06/13/2024 Cesar Crouch RN Complete/Scheduled Dr Montgomery at [facility] - August 2024 Assessments CDM Assessment Medications: Do you have any questions about taking your medications or which medications you should be taking?: No Do you need any medication refills at this time, including any of the medication you might take only when needed?: No Social: It can be normal to feel anxious or down during a time like this. Would you like to talk to a mental health professional about how you have been feeling?: No Symptoms: Are you experiencing any new or worsening symptoms that you need to talk about today?: No ADLs No documentation this encounter Fall Risk No documentation this encounter SDOH No documentation this encounter Interventions The following were addressed during this visit: - Month 2: Provide HTN Education: Sodium Controlled Diets - Month 3: Provide HTN Education: Understanding Medications - Month 3: Provide HTN Education: Medication Compliance - Month 1: Schedule Diabetes Eye Exam - Month 2: Provide Diabetes Education: Diet Modification: Added Sugars in Drinks - Month 3: Provide Diabetes Education: Medication Adherence/Compliance - Month 3: Provide Diabetes Education: Understanding Medication - Month 1: Provide General Education: Managing Stress AND Anxiety - Bi-Weekly Outreach (Recurring) Disposition Based on ruling machine feeder, the following disposition is advised: No action needed Linda Almeida RN September 07, 2024 1:52 PM Allergies As of Date: 09/07/2024 Noted Allergy Reaction ACCUPRIL (QUINAPRIL HCL) 12/24/2004 3 - Cough SULFA (SULFONAMIDE ANTIBIOTICS) 12/24/2004 4 - Hives ATORVASTATIN 01/09/2016 17 - Myalgia BENZONATATE 01/09/2016 4 - Hives GABAPENTIN 01/14/2018 14 - Other: See Comments Comments: fatigue SIMVASTATIN 01/09/2016 14 - Other: See Comments Date Reviewed: 07/11/2024 Reviewed by: Trina Moore LPN - Fully Assessed Prescriptions as of 09/07/2024 - pantoprazole DR (PROTONIX) 40 mg tablet Take 1 tablet by mouth daily before breakfast. Take on empty stomach, 1/2 hr before meal. - furosemide (LASIX) 40 mg tablet Take 1 tablet by mouth once daily. - empagliflozin (JARDIANCE) 10 mg tablet Take 1 tablet by mouth daily with breakfast. - carvedilol (COREG) 25 mg tablet Take 1 tablet by mouth two times a day. - isosorbide mononitrate ER (IMDUR) 60 mg 24 hr tablet Take 1 tablet by mouth once daily. - lev (more content not included)...[facility]06-23-2025 Telephone encounter Note* Telephone Encounter - Priyanka Hobbs - 09/04/2024 10:26 AM EDT Prescription Refill Information The patient has been identified by name and date of : Yes Caregiver verified no other encounters exist for this prescription request: Yes Caregiver confirmed with patient/requestor that no other refills are due, in the near future, with this provider at this time: Yes The last office visit in the department: 07-11-24 Does the patient have a future office visit with this provider/department: Yes Requested Prescriptions Pending Prescriptions Disp Refills pantoprazole DR (PROTONIX) 40 mg tablet 90 tablet 1 Sig: Take 1 tablet by mouth daily before breakfast. Take on empty stomach, 1/2 hr before meal. furosemide (LASIX) 40 mg tablet 90 tablet 1 Sig: Take 1 tablet by mouth once daily. Priyanka Kurtz September 04, 2024 10:27 AM [facility] Work Phone: [phone] Miscellaneous Notes* Telephone Encounter - Priyanka Hobbs - 09/04/2024 10:26 AM EDT Prescription Refill Information The patient has been identified by name and date of : Yes Caregiver verified no other encounters exist for this prescription request: Yes Caregiver confirmed with patient/requestor that no other refills are due, in the near future, with this provider at this time: Yes The last office visit in the department: 07-11-24 Does the patient have a future office visit with this provider/department: Yes Requested Prescriptions Pending Prescriptions Disp Refills pantoprazole DR (PROTONIX) 40 mg tablet 90 tablet 1 Sig: Take 1 tablet by mouth daily before breakfast. Take on empty stomach, 1/2 hr before meal. furosemide (LASIX) 40 mg tablet 90 tablet 1 Sig: Take 1 tablet by mouth once daily. Priyanka Kurtz September 04, 2024 10:27 AM documented in this encounterMer[facility]06-[facility]-2025 NoteHNO ID: [id number] Author: LUKASZ MATOS, RN Service: ? Author Type: Registered Nurse Type: Progress Notes Filed: 08/24/2024 15:05 Note Text: CDM Care Path Telephonic Outreach Provider Action/FYI Patient identified by Name and Date of . Discussed care with patient. -Focused on HTN education today. -Pt does not check BP/HR at home, educated importance of Program Details Chronic Disease Management Status: Enrolled Effective Dates: 06/13/2024 - present Responsible Staff: Cesar Crouch RN Support and Services: Diabetes, Hypertension, Chronic Kidney Disease (CKD) Program Goals Targets Target Due Completed Completed By Outcome Comprehensive CKD education provided 09/12/2024 -- -- -- Comprehensive Diabetes education provided 09/12/2024 -- -- -- Comprehensive HTN education provided 09/12/2024 -- -- -- Patient-stated goal addressed (add comment) 09/12/2024 08/24/2024 Lukasz Matos RN Complete Cont to get up and move General education provided (managing stress, where to go/how to contact, etc.) 07/13/2024 06/27/2024 Cesar Crouch RN Complete Biannual PCP visit addressed 09/12/2024 06/27/2024 Cesar Crouch RN Complete/Scheduled seen today 06/27/24 . f/u for 07/11/24 3 mos f/u 09/26/24 CKD lab care gaps addressed 09/12/2024 06/27/2024 Csear Crouch RN Complete/Scheduled cmp 06/23/24 Diabetes lab care gaps addressed 09/12/2024 06/27/2024 Cesar Crouch RN Complete/Scheduled done 06/23/24 HTN lab care gaps addressed 09/12/2024 06/27/2024 Cesar Crouch RN Complete/Scheduled 06/23/24 Intake assessments completed: ADLs, Fall Risk, SDOH 07/13/2024 06/13/2024 Cesar Crouch RN Complete Annual Medicare Wellness visit addressed 09/12/2024 06/13/2024 Cesar Crouch RN Complete/Scheduled Annual Nephrology visit addressed 09/12/2024 06/13/2024 Cesar Crouch RN Complete/Scheduled Dr Montgomery at [facility] - August 2024 Assessments CDM Assessment Medications: Do you have any questions about taking your medications or which medications you should be taking?: No Do you need any medication refills at this time, including any of the medication you might take only when needed?: No Symptoms: Are you experiencing any new or worsening symptoms that you need to talk about today?: No ADLs Patients can perform the following activities without help: Eating: Yes Transferring: Yes Toileting: Yes Instrumental activities of daily living Using Telephone: Yes Housework: Yes Home Repair: Yes (Simple) Taking Medications: Yes Handling finances: Yes Fall Risk No documentation this encounter SDOH No documentation this encounter Interventions The following were addressed during this visit: - Month 1: Provide HTN Education: What is High Blood Pressure - Month 1: Provide HTN Education: When to call your Doctor, When to seek Emergency Care - Patient-stated goal addressed (add comment) - Month 1: Provide General Education: Where to Go for Care - Develop a Patient-Stated Goal (add to Target comments) Disposition Based on ruling machine feeder, the following disposition is advised: No action needed Lukasz Matos RN August 24, 2024 3:03 [facility]06-12-2025 History of Present illness Narrative* Lukasz Matos RN - 08/24/2024 2:51 PM EDT Images from the original note were not included. CDM Care Path Telephonic Outreach Provider Action/FYI Patient identified by Name and Date of . Discussed care with patient. -Focused on HTN education today. -Pt does not check BP/HR at home, educated importance of Program Details Chronic Disease Management Status: Enrolled Effective Dates: 06/13/2024 - present Responsible Staff: Cesar Crouch, RN Support and Services: Diabetes, Hypertension, Chronic Kidney Disease (CKD) Program Goals Targets Target Due Completed Completed By Outcome Comprehensive CKD education provided 09/12/2024 -- -- -- Comprehensive Diabetes education provided 09/12/2024 -- -- -- Comprehensive HTN education provided 09/12/2024 -- -- -- Patient-stated goal addressed (add comment) 09/12/2024 08/24/2024 Lukasz Matos RN Complete Cont to get up and move General education provided (managing stress, where to go/how to contact, etc.) 07/13/2024 06/27/2024 Cesar Crouch RN Complete Biannual PCP visit addressed 09/12/2024 06/27/2024 Cesar Crouch RN Complete/Scheduled seen today 06/27/24 . f/u for 07/11/24 3 mos f/u 09/26/24 CKD lab care gaps addressed 09/12/2024 06/27/2024 Cesar Crouch RN Complete/Scheduled cmp 06/23/24 Diabetes lab care gaps addressed 09/12/2024 06/27/2024 Cesar Crouch RN Complete/Scheduled done 06/23/24 HTN lab care gaps addressed 09/12/2024 06/27/2024 Cesar Crouch RN Complete/Scheduled 06/23/24 Intake assessments completed: ADLs, Fall Risk, SDOH 07/13/2024 06/13/2024 Cesar Crouch RN Complete Annual Medicare Wellness visit addressed 09/12/2024 06/13/2024 Cesar Crouch RN Complete/Scheduled Annual Nephrology visit addressed 09/12/2024 06/13/2024 Cesar Crouch RN Complete/Scheduled Dr Montgomery at [facility] - August 2024 Assessments CDM Assessment Medications: Do you have any questions about taking your medications or which medications you should be taking?:No Do you need any medication refills at this time, including any of the medication you might take only when needed?: No Symptoms: Are you experiencing any new or worsening symptoms that you need to talk about today?: No ADLs Patients can perform the following activities without help: Eating: Yes Transferring: Yes Toileting: Yes Instrumental activities of daily living Using Telephone: Yes Housework: Yes Home Repair: Yes (Simple) Taking Medications: Yes Handling finances: Yes Fall Risk No documentation this encounter SDOH No documentation this encounter Interventions The following were addressed during this visit: - Month 1: Provide HTN Education: What is High Blood Pressure - Month 1: Provide HTN Education: When to call your Doctor, When to seek Emergency Care - Patient-stated goal addressed (add comment) - Month 1: Provide General Education: Where to Go for Care - Develop a Patient-Stated Goal (add to Target comments) Disposition Based on ruling machine feeder, the following disposition is advised: No action needed Lukasz Matos RN August 24, 2024 3:03 PM documented in [facility] encounterMer[facility] NotePatient Outreach ([facility]) NEELAM RYAN ([id number]) 1935 F Date Time Provider Department 08/24/24 LUKASZ MATOS [facility] During your visit today, we recorded the following information about you: Lukasz Matos RN 08/24/2024 3:05 PM Signed CDM Care Path Telephonic Outreach Provider Action/FYI Patient identified by Name and Date of . Discussed care with patient. -Focused on HTN education today. -Pt does not check BP/HR at home, educated importance of Program Details Chronic Disease Management Status: Enrolled Effective Dates: 06/13/2024 - present Responsible Staff: Cesar Crouch RN Support and Services: Diabetes, Hypertension, Chronic Kidney Disease (CKD) Program Goals Targets Target Due Completed Completed By Outcome Comprehensive CKD education provided 09/12/2024 -- -- -- Comprehensive Diabetes education provided 09/12/2024 -- -- -- Comprehensive HTN education provided 09/12/2024 -- -- -- Patient-stated goal addressed (add comment) 09/12/2024 08/24/2024 Lukasz Matos RN Complete Cont to get up and move General education provided (managing stress, where to go/how to contact, etc.) 07/13/2024 06/27/2024 Cesar Crouch RN Complete Biannual PCP visit addressed 09/12/2024 06/27/2024 Cesar Crouch RN Complete/Scheduled seen today 06/27/24 . f/u for 07/11/24 3 mos f/u 09/26/24 CKD lab care gaps addressed 09/12/2024 06/27/2024 Cesar Crouch RN Complete/Scheduled cmp 06/23/24 Diabetes lab care gaps addressed 09/12/2024 06/27/2024 Cesar Crouch RN Complete/Scheduled done 06/23/24 HTN lab care gaps addressed 09/12/2024 06/27/2024 Csear Crouch RN Complete/Scheduled 06/23/24 Intake assessments completed: ADLs, Fall Risk, SDOH 07/13/2024 06/13/2024 Cesar Crouch RN Complete Annual Medicare Wellness visit addressed 09/12/2024 06/13/2024 Cesar Crouch RN Complete/Scheduled Annual Nephrology visit addressed 09/12/2024 06/13/2024 Cesar Crouch RN Complete/Scheduled Dr Montgomery at [facility] August 2024 Assessments CDM Assessment Medications: Do you have any questions about taking your medications or which medications you should be taking?: No Do you need any medication refills at this time, including any of the medication you might take only when needed?: No Symptoms: Are you experiencing any new or worsening symptoms that you need to talk about today?: No ADLs Patients can perform the following activities without help: Eating: Yes Transferring: Yes Toileting: Yes Instrumental activities of daily living Using Telephone: Yes Housework: Yes Home Repair: Yes (Simple) Taking Medications: Yes Handling finances: Yes Fall Risk No documentation this encounter SDOH No documentation this encounter Interventions The following were addressed during this visit: - Month 1: Provide HTN Education: What is High Blood Pressure - Month 1: Provide HTN Education: When to call your Doctor, When to seek Emergency Care - Patient-stated goal addressed (add comment) - Month 1: Provide General Education: Where to Go for Care - Develop a Patient-Stated Goal (add to [employer] comments) Disposition Based on ruling machine feeder, the following disposition is advised: No action needed Lukasz Matos RN August 24, 2024 3:03 PM Allergies As of Date: 08/24/2024 Noted Allergy Reaction ACCUPRIL (QUINAPRIL HCL) 12/24/2004 3 - Cough SULFA (SULFONAMIDE ANTIBIOTICS) 12/24/2004 4 - Hives ATORVASTATIN 01/09/2016 17 - Myalgia BENZONATATE 01/09/2016 4 - Hives GABAPENTIN 01/14/2018 14 - Other: See Comments Comments: fatigue SIMVASTATIN 01/09/2016 14 - Other: See Comments Date Reviewed: 07/11/2024 Reviewed by: Trina Moore LPN - Fully Assessed Prescriptions as of 08/24/2024 - empagliflozin (JARDIANCE) 10 mg tablet Take 1 tablet by mouth daily with breakfast. - carvedilol (COREG) 25 mg tablet Take 1 tablet by mouth two times a day. - isosorbide mononitrate ER (IMDUR) 60 mg 24 hr tablet Take 1 tablet by mouth once daily. - levothyroxine (LEVOXYL) 75 mcg tablet Take 1 tablet by mouth once daily. - pravastatin (PRAVACHOL) 80 mg tablet Take 1 tablet by mouth daily at bedtime. - semaglutide (OZEMPIC) 2 mg/dose (8 mg/3 mL) pen injector Inject 2 mg subcutaneously one time a week. - amLODIPine (NORVASC) 2.5 mg tablet Take 1 tablet by mouth once daily. - citalopram (CELEXA) 20 mg tablet Take 1 tablet by mouth once daily. - folic acid 1 mg tablet Take 2 tablets by mouth once daily. - glipiZIDE (GLUCOTROL) 10 mg tablet Take 1 tablet (10 mg) by mouth two times a day before meals. - potassium chloride (K-TAB) 10 mEq tablet Take 1 tablet by mouth daily with breakfast. - vit C,G-Bi-bltus-lutein-zeaxan (PRESERVISION AREDS-2) 250-90-40-1 mg Take 1 capsule by mouth two times a day with meals. - furosemide (LASIX) 40 mg tablet Take 1 tablet by mouth once daily. - pantoprazole DR (PROTONIX) 40 mg t (more content not included)...[facility]06-10-2025 Telephone encounter Note* Telephone Encounter - Rakel New MA - 08/22/2024 11:25 AM EDT Spoke with patient in detail and she verbalized understanding. Rakel New MA [facility]06-10-2025 Miscellaneous Notes* Telephone Encounter - Rakel New MA - 08/22/2024 11:25 AM EDT Spoke with patient in detail and she verbalized understanding. Rakel New MA * Telephone Encounter - Frank Fuentes MD - 08/22/2024 9:40 AM EDT Rx sent for Jardiance 10 mg daily. Watch for signs of UTI with this new medication and continue to work on hydration with at least 64 oz of water per day. Check fasting sugars daily and send update in 3 weeks. With sugars >250, if she were to develop fever/chills, abdominal pain, nausea/vomiting, confusion, increased urination, SOB I would recommend ER evaluation for DKA. * Telephone Encounter - Kristen Cornell LPN - 08/22/2024 9:16 AM EDT Pt notified of dr's message. Pt reports she is willing to try the pills first. Kristen Cornell LPN * Telephone Encounter - Rakel New MA - 08/21/2024 2:15 PM EDT Message left for return call. Rakel New MA * Telephone Encounter - Frank Fuentes MD - 08/21/2024 12:19 PM EDT Sugars are still high despite being on max dose of Ozempic at 2 mg weekly. Patient refused SGLT-2 pill/medication at last OV that would have caused her to urinate out more of her sugar to help lower her readings and protect kidney function. If still not interested in this, the next step would be insulin. Is she wanting to try the pill, or go on insulin? * Telephone Encounter - Kristen Cornell LPN - 08/21/2024 10:06 AM EDT Pt calls with fbs from 08/02-08/21/24 as advised: [phone] Please review and advise. Kristen Cornell LPN documented in [facility] Telephone encounter Note * Telephone Encounter - Frank Fuentes MD - 08/22/2024 9:40 AM EDT Rx sent for Jardiance 10 mg daily. Watch for signs of UTI with this new medication and continue to work on hydration with at least 64 oz of water per day. Check fasting sugars daily and send update in 3 weeks. With sugars >250, if she were to develop fever/chills, abdominal pain, nausea/vomiting, confusion, increased urination, SOB I would recommend ER evaluation for DKA. [facility]06-10-2025 Telephone encounter Note* Telephone Encounter - Kristen Cornell LPN - 08/22/2024 9:16 AM EDT Pt notified of 's message. Pt reports she is willing to try the pills first. Kristen Cornell LPN [facility]06-09-2025 Telephone encounter Note* Telephone Encounter - Kimberly Higgins MA - 08/21/2024 2:20 PM EDT Patient has been identified by name and date of : yes Patient phones for refill(s): Requested Prescriptions Pending Prescriptions Disp Refills carvedilol (COREG) 25 mg tablet 180 tablet 1 Sig: Take 1 tablet by mouth two times a day. Date of last office visit in primary care: 07/11/2024 Date of next office visit in primary care: 09/26/24 Please advise. Thank you. Kimberly Higgins MA. [facility]06-09-2025 Miscellaneous Notes* Telephone Encounter - Kimberly Higgins MA - 08/21/2024 2:20 PM EDT Patient has been identified by name and date of : yes Patient phones for refill(s): Requested Prescriptions Pending Prescriptions Disp Refills carvedilol (COREG) 25 mg tablet 180 tablet 1 Sig: Take 1 tablet by mouth two times a day. Date of last office visit in primary care: 07/11/2024 Date of next office visit in primary care: 09/26/24 Please advise. Thank you. Kimberly Higgins MA. * Telephone Encounter - Pippa Khalil - 08/21/2024 9:57 AM EDT Prescription Refill Information The patient has been identified by name and date of : Yes Caregiver verified no other encounters exist for this prescription request: Yes Caregiver confirmed with patient/requestor that no other refills are due, in the near future, with this provider at this time: Yes The last office visit in the department: 07-11-24 Does the patient have a future office visit with this provider/department: Yes Requested Prescriptions Pending Prescriptions Disp Refills carvedilol (COREG) 25 mg tablet 180 tablet 1 Sig: Take 1 tablet by mouth two times a day. Pippa Kurtz August 21, 2024 9:58 AM documented in this encounterCleveland [id number] Telephone encounter Note * Telephone Encounter - Rakel New MA - 08/21/2024 2:15 PM EDT Message left for return call. Rakel New MA [facility]06-09-2025 Telephone encounter Note* Telephone Encounter - Frank Fuentes MD - 08/21/2024 12:19 PM EDT Sugars are still high despite being on max dose of Ozempic at 2 mg weekly. Patient refused SGLT-2 pill/medication at last OV that would have caused her to urinate out more of her sugar to help lower her readings and protect kidney function. If still not interested in this, the next step would be insulin. Is she wanting to try the pill, or go on insulin? [facility]06-09-2025 Telephone encounter Note* Telephone Encounter - Kristen Cornell LPN - 08/21/2024 10:06 AM EDT Pt calls with fbs from 08/02-08/21/24 as advised: [phone] Please review and advise. Kristen Cornell LPN [facility]06-09-2025 Telephone encounter Note* Telephone Encounter - Pippa Khalil - 08/21/2024 9:57 AM EDT Prescription Refill Information The patient has been identified by name and date of : Yes Caregiver verified no other encounters exist for this prescription request: Yes Caregiver confirmed with patient/requestor that no other refills are due, in the near future, with this provider at this time: Yes The last office visit in the department: 07-11-24 Does the patient have a future office visit with this provider/department: Yes Requested Prescriptions Pending Prescriptions Disp Refills carvedilol (COREG) 25 mg tablet 180 tablet 1 Sig: Take 1 tablet by mouth two times a day. Pippa Kurtz August 21, 2024 9:58 AM [facility]06-03-2025 Telephone encounter Note* Telephone Encounter - Priyanka Hobbs - 08/15/2024 8:20 AM EDT Prescription Refill Information The patient has been identified by name and date of : Yes Caregiver verified no other encounters exist for this prescription request: Yes Caregiver confirmed with patient/requestor that no other refills are due, in the near future, with this provider at this time: Yes The last office visit in the department: 07-11-24 Does the patient have a future office visit with this provider/department: Yes Requested Prescriptions Pending Prescriptions Disp Refills isosorbide mononitrate ER (IMDUR) 60 mg 24 hr tablet 90 tablet 1 Sig: Take 1 tablet by mouth once daily. Priyanka Kurtz August 15, 2024 8:21 AM [facility] Work Phone: [id number] Miscellaneous Notes* Telephone Encounter - Priyanka Hobbs - 08/15/2024 8:20 AM EDT Prescription Refill Information The patient has been identified by name and date of : Yes Caregiver verified no other encounters exist for this prescription request: Yes Caregiver confirmed with patient/requestor that no other refills are due, in the near future, with this provider at this time: Yes The last office visit in the department: 07-11-24 Does the patient have a future office visit with this provider/department: Yes Requested Prescriptions Pending Prescriptions Disp Refills isosorbide mononitrate ER (IMDUR) 60 mg 24 hr tablet 90 tablet 1 Sig: Take 1 tablet by mouth once daily. Priyanka Kurtz August 15, 2024 8:21 AM documented in [facility] encounter[facility] Telephone encounter Note * Telephone Encounter - Kayla Ortiz - 07/31/2024 8:43 AM EDT Prescription Refill Information The patient has been identified by name and date of : Yes Caregiver verified no other encounters exist for this prescription request: Yes Caregiver confirmed with patient/requestor that no other refills are due, in the near future, with this provider at this time: Yes The last office visit in the department: 07/11/2024 Does the patient have a future office visit with this provider/department: Yes Requested Prescriptions Pending Prescriptions Disp Refills levothyroxine (LEVOXYL) 75 mcg tablet 90 tablet 1 Sig: Take 1 tablet by mouth once daily. pravastatin (PRAVACHOL) 80 mg tablet 90 tablet 1 Sig: Take 1 tablet by mouth daily at bedtime. Kayla Sandra July 31, 2024 8:43 AM [facility]05-19-2025 Miscellaneous Notes* Telephone Encounter - Kayla Ortiz - 07/31/2024 8:43 AM EDT Prescription Refill Information The patient has been identified by name and date of : Yes Caregiver verified no other encounters exist for this prescription request: Yes Caregiver confirmed with patient/requestor that no other refills are due, in the near future, with this provider at this time: Yes The last office visit in the department: 07/11/2024 Does the patient have a future office visit with this provider/department: Yes Requested Prescriptions Pending Prescriptions Disp Refills levothyroxine (LEVOXYL) 75 mcg tablet 90 tablet 1 Sig: Take 1 tablet by mouth once daily. pravastatin (PRAVACHOL) 80 mg tablet 90 tablet 1 Sig: Take 1 tablet by mouth daily at bedtime. Kayla Sandra July 31, 2024 8:43 AM documented in this encounterMer[facility]04-29-[facility]25 Instructions* Patient Instructions* Frank Fuentes MD - 07/11/2024 2:05 PM EDT Please continue to check sugars daily and when you start the 2 mg Ozempic 1 shot daily, call in 2-3weeks with readings. documented in this encounterMer[facility]04-29-2025 NoteHNO ID: [id number] Author: FRANK FUENTES MD Service: ? Author Type: Physician Type: Progress Notes Filed: 07/11/2024 15:11 Note Text: Chief Complaint Patient presents with: abnormal mini cog follow up HPI Neelam Ryan is a 89 year old female who presents here today for Above Complaints.. Here today for further evaluation of abnormal minicog score 2/5 on 06/27. States that she has noticed some mild memory impairment with aging including: difficulty coming up with words, remembering names of acquaintances. Denies sudden change in memory, difficulty managing her medications or finances, getting lost while driving. Able to perform her ADLs except for yardwork. Reports no one in family has expressed concern for her memory. Admits to intention tremor. Denies headache, vision changes, slurred speech, facial droop, numbness/tingling/weakness, hallucinations, slowed gait/movement. Uses walker for ambulation, but denies postural instability. Past medical history, appointments, medications, allergies reviewed. Previous Medical History PAST MEDICAL HISTORY Diagnosis Date Basal cell carcinoma Dr. Lambert Cholecystitis, unspecified Chronic kidney disease (CKD), stage IV (severe) (HCC) Dr. Montgomery Coronary atherosclerosis of unspecified type of vessel, tulalip or graft Dr. Davenport Depression Hammertoes of both feet Multinodular goiter 05/21/2016 Osteoarthritis Other and unspecified anemias Pure hypercholesterolemia Sciatica Swelling of lower extremity Type II or unspecified type diabetes mellitus without mention of complication, not stated as uncontrolled Podiatry-Dr. Mcgee Unspecified essential hypertension Unspecified hypothyroidism Previous Surgical History PAST SURGICAL HISTORY Procedure Laterality Date COLONOSCOPY FLX DX W/COLLJ SPEC WHEN PFRMD 01/30/2005 Colonoscopy COLONOSCOPY FLX DX W/COLLJ SPEC WHEN PFRMD 08/05/2015 Colonoscopy ESOPHAGOGASTRODUODENOSCOPY TRANSORAL DIAGNOSTIC 01/30/2005 EGD HEART CATHETERIZATION 09/2018 angiopasty of circumflex, 75% stenosis. LAD 80%. LAPAROSCOPY SURG CHOLECYSTECTOMY 12/02/2005 Cholecystectomy, lap PAST SURGICAL HISTORY OF hernia PAST SURGICAL HISTORY OF carpal tunnel both hands PAST SURGICAL HISTORY OF fingers different times PAST SURGICAL HISTORY OF trigger finger PAST SURGICAL HISTORY OF 06/21/2006 heart cath with stent placement [facility] PAST SURGICAL HISTORY OF 04/24/2008 vaginal hysterectomy, bladder suspension, rectocele PAST SURGICAL HISTORY OF 11/20/11 cardiac cath; percutaneous transluminal coronary angioplasty with stent @ [facility] PAST SURGICAL HISTORY OF left wrist surgery TOTAL THYROID LOBECTOMY UNI W/WO ISTHMUSECTOMY Right 05/21/2016 TRANSCATH STENT INIT VESSEL,PERCUT 08/18 Transcath stent init vessel percut LAD [place] [facility] Family History FAMILY HISTORY Problem Relation Age of Onset Diabetes Mother CAD, ANGIOPLASTY Diabetes Father DC other (DC) Brother other (OHS) Sister other (DC) Brother Heart Sister diabetic Heart Sister Heart Sister diabetic Heart Sister diabetic Patient Allergies ALLERGIES Allergen Reactions Accupril [Quinapril* Cough Sulfa (Sulfonamide * Hives Atorvastatin Myalgia Benzonatate Hives Gabapentin Other: See Comments fatigue Simvastatin Other: See Comments Current Medications Current Outpatient Medications on File Prior to Visit Medication Sig semaglutide (OZEMPIC) 2 mg/dose (8 mg/3 mL) pen injector Inject 2 mg subcutaneously one time a week. amLODIPine (NORVASC) 2.5 mg tablet Take 1 tablet by mouth once daily. citalopram (CELEXA) 20 mg tablet Take 1 tablet by mouth once daily. folic acid 1 mg tablet Take 2 tablets by mouth once daily. glipiZIDE (GLUCOTROL) 10 mg tablet Take 1 tablet (10 mg) by mouth two times a day before meals. potassium chloride (K-TAB) 10 mEq tablet Take 1 tablet by mouth daily with breakfast. vit C,Y-Sc-dnbmo-lutein-zeaxan (PRESERVISION AREDS-2) 250-90-40-1 mg Take 1 capsule by mouth two times a day with meals. furosemide (LASIX) 40 mg tablet Take 1 tablet by mouth once daily. pantoprazole DR (PROTONIX) 40 mg tablet Take 1 tablet by mouth daily before breakfast. Take on empty stomach, 1/2 hr before meal. carvedilol (COREG) 25 mg tablet Take 1 tablet by mouth two times a day. isosorbide mononitrate ER (IMDUR) 60 mg 24 hr tablet Take 1 tablet by mouth once daily. levothyroxine (LEVOXYL) 75 mcg tablet Take 1 tablet by mouth once daily. pravastatin (PRAVACHOL) 80 mg tablet Take 1 tablet by mouth daily at bedtime. aspirin 81 mg cap Take 81 mg by mouth once daily. mecobalamin, vitamin B12, 1,000 mcg chew Take 1 tablet by mouth once daily. acetaminophen (TYLENOL) 500 mg tablet Take 2 tablets by mouth every 8 hours as needed for pain. blood sugar diagnostic (BLOOD GLUCOSE TEST) test strip Blue Boxigy Glucometer Test blood sugar(s) 1 time daily. Dx: Typ (more content not included)...[facility]04-29-2025 History of Present illness Narrative* Frank Fuenets MD - 07/11/2024 1:40 PM EDT Chief Complaint Patient presents with: abnormal mini cog follow up HPI Neelam Ryan is a 89 year old female who presents here today for Above Complaints.. Here today for further evaluation of abnormal minicog score 2/5 on 06/27. States that she has noticed some mild memory impairment with aging including: difficulty coming up with words, remembering names of acquaintances. Denies sudden change in memory, difficulty managing her medications or finances, getting lost while driving. Able to perform her ADLs except for yardwork. Reports no one in familyhas expressed concern for her memory. Admits to intention tremor. Denies headache, vision changes, slurred speech, facial droop, numbness/tingling/weakness, hallucinations, slowed gait/movement. Uses walker for ambulation, but denies postural instability. Past medical history, appointments, medications, allergies reviewed. Previous Medical History PAST MEDICAL HISTORY Diagnosis Date Basal cell carcinoma Dr. Lambert Cholecystitis, unspecified Chronic kidney disease (CKD), stage IV (severe) (HCC) Dr. Montgomery Coronary atherosclerosis of unspecified type of vessel, tulalip or graft Dr. Issac Hernandes of both feet Multinodular goiter 05/21/2016 Osteoarthritis Other and unspecified anemias Pure hypercholesterolemia Sciatica Swelling of lower extremity Type II or unspecified type diabetes mellitus without mention of complication, not stated as uncontrolled Podiatry-Dr. Mcgee Unspecified essential hypertension Unspecified hypothyroidism Previous Surgical History PAST SURGICAL HISTORY Procedure Laterality Date COLONOSCOPY FLX DX W/COLLJ SPEC WHEN PFRMD 01/30/2005 Colonoscopy COLONOSCOPY FLX DX W/COLLJ SPEC WHEN PFRMD 08/05/2015 Colonoscopy ESOPHAGOGASTRODUODENOSCOPY TRANSORAL DIAGNOSTIC 01/30/2005 EGD HEART CATHETERIZATION 09/2018 angiopasty of circumflex, 75% stenosis. LAD 80%. LAPAROSCOPY SURG CHOLECYSTECTOMY 12/02/2005 Cholecystectomy, lap PAST SURGICAL HISTORY OF hernia PAST SURGICAL HISTORY OF carpal tunnel both hands PAST SURGICAL HISTORY OF fingers different times PAST SURGICAL HISTORY OF trigger finger PAST SURGICAL HISTORY OF 06/21/2006 heart cath with stent placement [facility] PAST SURGICAL HISTORY OF 04/24/2008 vaginal hysterectomy, bladder suspension, rectocele PAST SURGICAL HISTORY OF 11/20/11 cardiac cath; percutaneous transluminal coronary angioplasty with stent @ [facility] PAST SURGICAL HISTORY OF left wrist surgery TOTAL THYROID LOBECTOMY UNI W/WO ISTHMUSECTOMY Right 05/21/2016 TRANSCATH STENT INIT VESSEL,PERCUT 08/18 Transcath stent init vessel percut LAD [place] [facility] Family History FAMILY HISTORY Problem Relation Age of Onset Diabetes Mother CAD, ANGIOPLASTY Diabetes Father DC other (DC) Brother other (OHS) Sister other (DC) Brother Heart Sister diabetic Heart Sister Heart Sister diabetic Heart Sister diabetic Patient Allergies ALLERGIES Allergen Reactions Accupril [Quinapril* Cough Sulfa (Sulfonamide * Hives Atorvastatin Myalgia Benzonatate Hives Gabapentin Other: See Comments fatigue Simvastatin Other: See Comments Current Medications Current Outpatient Medications on File Prior to Visit Medication Sig semaglutide (OZEMPIC) 2 mg/dose (8 mg/3 mL) pen injector Inject 2 mg subcutaneously one time a week. amLODIPine (NORVASC) 2.5 mg tablet Take 1 tablet by mouth once daily. citalopram (CELEXA) 20 mg tablet Take 1 tablet by mouth once daily. folic acid 1 mg tablet Take 2 tablets by mouth once daily. glipiZIDE (GLUCOTROL) 10 mg tablet Take 1 tablet (10 mg) by mouth two times a day before meals. potassium chloride (K-TAB) 10 mEq tablet Take 1 tablet by mouth daily with breakfast. vit C,G-Rq-cvvza-lutein-zeaxan (PRESERVISION AREDS-2) 250-90-40-1 mg Take 1 capsule by mouth two times a day with meals. furosemide (LASIX) 40 mg tablet Take 1 tablet by mouth once daily. pantoprazole DR (PROTONIX) 40 mg tablet Take 1 tablet by mouth daily before breakfast. Take on empty stomach, 1/2 hr before meal. carvedilol (COREG) 25 mg tablet Take 1 tablet by mouth two times a day. isosorbide mononitrate ER (IMDUR) 60 mg 24 hr tablet Take 1 tablet by mouth once daily. levothyroxine (LEVOXYL) 75 mcg tablet Take 1 tablet by mouth once daily. pravastatin (PRAVACHOL) 80 mg tablet Take 1 tablet by mouth daily at bedtime. aspirin 81 mg cap Take 81 mg by mouth once daily. mecobalamin, vitamin B12, 1,000 mcg chew Take 1 tablet by mouth once daily. acetaminophen (TYLENOL) 500 mg tablet Take 2 tablets by mouth every 8 hours as needed for pain. blood sugar diagnostic (BLOOD GLUCOSE TEST) test strip Prodigy Glucometer Test blood sugar(s) 1 time daily. Dx: Type 2 DM - Controlled E11.9 Insulin: No nitroglycerin sublingual (NITROQUICK) 0.4 mg SL tablet Dissolve 1 tablet under the tongue as needed. DISSOLVE ONE(1) TABLET UNDER THE TOUNGUE NEEDED FOR CHEST PAIN,EVERY 5 MIN X3 Lancets lancets Test blood sugar(s) 1 times daily. Dx: Type 2 DM - Controlled E11.9 Insulin: No COMPOUNDED PRESCRIPTION Prodigy Glucometer test strips Test once daily. Dx: E11.9 Insulin: No Cholecalciferol, Vitamin D3, 1,000 unit cap Take 1 capsule by mouth once daily. COMPOUNDED PRESCRIPTION Lancets Test once daily. Dx: E11.9 Insulin: No Cranberry 500 mg cap Take 1 tablet by mouth once daily. XALATAN 0.005 % EYE DROPS one drop each eye at bede No current facility-administered medications on file prior to visit. Social History Social History Tobacco Use Smoking status: Never Smokeless tobacco: Never Vaping Use Vaping status: Never Used Substance Use Topics Alcohol use: No Drug use: No Review of Symptoms REVIEW OF SYSTEMS See HPI EXAM: BP 124/64 Pulse 78 Resp 16 Wt 68 kg (150 lb) SpO2 97% BMI 30.30 kg/m General Appearance: Well appearing, alert, in no acute distress, well-hydrated, well nourished.. Skin: Skin color, texture, turgor normal, no suspicious rashes or lesions. Lungs: Lungs clear to auscultation. No wheezing, rhonchi, rales.. Heart: RRR without murmur, gallop, or rubs. No ectopy. Neurologic: Negative findings: speech normal, mental status intact, cranial nerves 2-12 intact, muscle tone normal, muscle strength normal, sensation to light touch and pinprick normal, reflexes normal and symmetric. Health Maintenance List Anxiety Screening Never done Advance Directive Discussion Never done Dilated Retinal Exam due on 06/24/2024 RSV Vaccine(1 - 1-dose 75+ series) due on 09/21/2024 Shingrix Vaccine(1 of 2) due on 06/27/2025 HbA1C due on 09/22/2024 Diabetic Foot Exam due on 06/22/2025 Urine Albumin:Creatinine Ratio due on 06/23/2025 LDL Cholesterol due on 06/23/2025 DTaP,Tdap,Td Vaccine(6 - Td or Tdap) due on 06/22/2032 Bone Density Screening Completed Influenza Vaccine Completed Covid-19 Vaccine Completed Pneumococcal Vaccine: 50+ Completed Data reviewed MMSE: ASSESSMENT/PLAN: 1. Mild cognitive impairment - ICD9: 331.83, ICD10: G31.84 (primary diagnosis) Patient with mild cognitive impairment on MMSE consistent with normal aging. Does not appear confused today and does not have any neurologic symptoms to warrant head imaging today. Will obtain labs with next round of blood work to check for vitamin deficiency. Refusing labs today. No need for rx atthis time. Will monitor. - VITAMIN D 25 HYDROXY - VITAMIN B12 2. Type 2 diabetes mellitus with stage 3b chronic kidney disease, without long- term current use of insulin (HCC) - ICD9: 250.40, 585.3, ICD10: E11.22, N18.32 Repeat labs ordered prior to upcoming OV. Continue current regimen. - HEMOGLOBIN A1C - COMPREHENSIVE METABOLIC PANEL 3. Vitamin D deficiency - ICD9: 268.9, ICD10: E55.9 - VITAMIN D 25 HYDROXY Frank Fuentes MD documented in this encounterMer[facility]04-[facility]-2025 NoteHNO ID: [id number] Author: CESAR CROUCH, RN Service: ? Author Type: Registered Nurse Type: Progress Notes Filed: 06/27/2024 15:52 Note Text: [facility] Telephonic Outreach Provider Action/FYI n/a Patient identified by Name and Date of . Discussed care with patient. Program Details Chronic Disease Management Status: Enrolled Effective Dates: 06/13/2024 - present Responsible Staff: Cesar Crouch, RN Support and Services: Diabetes, Hypertension, Chronic Kidney Disease (CKD) Program Goals Targets Target Due Completed Completed By Outcome Comprehensive CKD education provided 09/12/2024 -- -- -- Comprehensive Diabetes education provided 09/12/2024 -- -- -- Comprehensive HTN education provided 09/12/2024 -- -- -- Patient-stated goal addressed (add comment) 09/12/2024 -- -- -- General education provided (managing stress, where to go/how to contact, etc.) 07/13/2024 06/27/2024 Cesar Crouch RN Complete Biannual PCP visit addressed 09/12/2024 06/27/2024 Cesar Crouch RN Complete/Scheduled seen today 06/27/24 . f/u for 07/11/24 3 mos f/u 09/26/24 CKD lab care gaps addressed 09/12/2024 06/27/2024 Cesar Crouch RN Complete/Scheduled cmp 06/23/24 Diabetes lab care gaps addressed 09/12/2024 06/27/2024 Cesar Crouch RN Complete/Scheduled done 06/23/24 HTN lab care gaps addressed 09/12/2024 06/27/2024 Cesar Crouch RN Complete/Scheduled 06/23/24 Intake assessments completed: ADLs, Fall Risk, SDOH 07/13/2024 06/13/2024 Cesar Crouch RN Complete Annual Medicare Wellness visit addressed 09/12/2024 06/13/2024 Cesar Crouch RN Complete/Scheduled Annual Nephrology visit addressed 09/12/2024 06/13/2024 Cesar Crouch RN Complete/Scheduled Dr Montgomery at [facility] - August 2024 Assessments No documentation this encounter Interventions The following were addressed during this visit: - HTN lab care gaps addressed - Diabetes lab care gaps addressed - CKD lab care gaps addressed - Biannual PCP visit addressed - General education provided (managing stress, where to go/how to contact, etc.) - Bi-Weekly Outreach (Recurring) Cesar Crouch RN June 27, 2024 3:48 [facility] History of Present illness Narrative* Cesar Crouch RN - 06/27/2024 3:48 PM EDT Images from the original note were not included. [facility] Telephonic Outreach Provider Action/FYI n/a Patient identified by Name and Date of . Discussed care with patient. Program Details Chronic Disease Management Status: Enrolled Effective Dates: 06/13/2024 - present Responsible Staff: Cesar Crouch RN Support and Services: Diabetes, Hypertension, Chronic Kidney Disease (CKD) Program Goals Targets Target Due Completed Completed By Outcome Comprehensive CKD education provided 09/12/2024 -- -- -- Comprehensive Diabetes education provided 09/12/2024 -- -- -- Comprehensive HTN education provided 09/12/2024 -- -- -- Patient-stated goal addressed (add comment) 09/12/2024 -- -- -- General education provided (managing stress, where to go/how to contact, etc.) 07/13/2024 06/27/2024 Cesar Crouch RN Complete Biannual PCP visit addressed 09/12/2024 06/27/2024 Cesar Crouch RN Complete/Scheduled seen today 06/27/24 . f/u for 07/11/24 3 mos f/u 09/26/24 CKD lab care gaps addressed 09/12/2024 06/27/2024 Cesar Crouch RN Complete/Scheduled cmp 06/23/24 Diabetes lab care gaps addressed 09/12/2024 06/27/2024 Cesar Crouch RN Complete/Scheduled done 06/23/24 HTN lab care gaps addressed 09/12/2024 06/27/2024 Cesar Crouch RN Complete/Scheduled 06/23/24 Intake assessments completed: ADLs, Fall Risk, SDOH 07/13/2024 06/13/2024 Cesar Crouch RN Complete Annual Medicare Wellness visit addressed 09/12/2024 06/13/2024 Cesar Crouch RN Complete/Scheduled Annual Nephrology visit addressed 09/12/2024 06/13/2024 Cesar Crouch RN Complete/Scheduled Dr Montgomery at [facility] - August 2024 Assessments No documentation this encounter Interventions The following were addressed during this visit: - HTN lab care gaps addressed - Diabetes lab care gaps addressed - CKD lab care gaps addressed - Biannual PCP visit addressed - General education provided (managing stress, where to go/how to contact, etc.) - Bi-Weekly Outreach (Recurring) Cesar Crouch RN June 27, 2024 3:48 PM documented in [facility] encounter[facility] Instructions* Patient Instructions* Frank Fuentes MD - 06/27/2024 12:57 PM EDT For your Ozempic, you can take 2 shots of the 1 mg dosage to equal 2 mg weekly. I sent in a new prescription for 2 mg dosage. When you spanish moss picker the new prescription, you will just need one shot weeklyfor a 2 mg dosage. Please call if you get sugar readings less than 80 or are having symptoms of low sugar. documented in this encounterMercy [facility]04-15-2025 NoteHNO ID: [id number] Author: FRANK FUENTES MD Service: ? Author Type: Physician Type: Progress Notes Filed: 06/27/2024 15:15 Note Text: Chief Complaint Patient presents with: Follow Up: 3 month HPI Neelam Ryan is a 89 year old female who presents here today for Above Complaints. Patient has been in good health without recent hospitalizations, ER visits. DIABETES MELLITUS: Ms. Ryan was last seen 3 months ago. Since our last visit she denies excessive thirst or increased frequency of urination, numbness, tingling or pain in extremities, new or unusual visual symptoms, and low sugar/hypoglycemic reactions. Follows a diabetic diet most of the time. She is compliant with medication(s) and is tolerating med(s) without any side effects. She reports checking her glucose on a once a day schedule with sugars in the fasting 170-200 range in the last 2-3 weeks. States that she was still taking her Januvia with Ozempic up until that time. Patient's last HgA1C was Hemoglobin A1C (%) Date Value 06/23/2024 8.8 03/29/2024 8.3 12/12/2020 7.8 06/11/2020 8.1 ) Last Ophthalmology exam was within the past 12 months Last Podiatry exam was within the past 3 months Depression symptoms well controlled on Celexa. Denies SI/HI. BP well controlled on current regimen today. Not monitoring on a regular basis at home. Denies HTN symptoms. No changes to regimen at OV with [facility] cardiology in April for her history of CAD with triple vessel disease. No change in regimen at last OV with Dr. Montgomery in December for CKD stage IV. F/u recommended in 8 months. Notes that she was cleaning her shower more than 2 months ago and fell backwards out of it. Did not hit her head. No LOC. Had bruise on her left shoulder and right leyva which has resolved. No pain today. Using walker outside of home and cane in her home for ambulation and feels steady. Minicog today abnormal at 2 out of 5. States memory does seem to be going. Past medical history, appointments, medications, allergies reviewed. Previous Medical History PAST MEDICAL HISTORY Diagnosis Date Basal cell carcinoma Dr. Lambert Cholecystitis, unspecified Chronic kidney disease (CKD), stage IV (severe) ([facility]) Dr. Montgomery Coronary atherosclerosis of unspecified type of vessel, tulalip or graft Dr. Issac Pulliam Hammertoes of both feet Multinodular goiter 05/21/2016 Osteoarthritis Other and unspecified anemias Pure hypercholesterolemia Sciatica Swelling of lower extremity Type II or unspecified type diabetes mellitus without mention of complication, not stated as uncontrolled Podiatry-Dr. Mcgee Unspecified essential hypertension Unspecified hypothyroidism Previous Surgical History PAST SURGICAL HISTORY Procedure Laterality Date COLONOSCOPY FLX DX W/COLLJ SPEC WHEN PFRMD 01/30/2005 Colonoscopy COLONOSCOPY FLX DX W/COLLJ SPEC WHEN PFRMD 08/05/2015 Colonoscopy ESOPHAGOGASTRODUODENOSCOPY TRANSORAL DIAGNOSTIC 01/30/2005 EGD HEART CATHETERIZATION 09/2018 angiopasty of circumflex, 75% stenosis. LAD 80%. LAPAROSCOPY SURG CHOLECYSTECTOMY 12/02/2005 Cholecystectomy, lap PAST SURGICAL HISTORY OF hernia PAST SURGICAL HISTORY OF carpal tunnel both hands PAST SURGICAL HISTORY OF fingers different times PAST SURGICAL HISTORY OF trigger finger PAST SURGICAL HISTORY OF 06/21/2006 heart cath with stent placement [facility] PAST SURGICAL HISTORY OF 04/24/2008 vaginal hysterectomy, bladder suspension, rectocele PAST SURGICAL HISTORY OF 11/20/11 cardiac cath; percutaneous transluminal coronary angioplasty with stent @ [facility] PAST SURGICAL HISTORY OF left wrist surgery TOTAL THYROID LOBECTOMY UNI W/WO ISTHMUSECTOMY Right 05/21/2016 TRANSCATH STENT INIT VESSEL,PERCUT 08/18 Transcath stent init vessel percut LAD [place] [facility] Family History FAMILY HISTORY Problem Relation Age of Onset Diabetes Mother CAD, ANGIOPLASTY Diabetes Father DC other (DC) Brother other (OHS) Sister other (DC) Brother Heart Sister diabetic Heart Sister Heart Sister diabetic Heart Sister diabetic Patient Allergies ALLERGIES Allergen Reactions Accupril [Quinapril* Cough Sulfa (Sulfonamide * Hives Atorvastatin Myalgia Benzonatate Hives Gabapentin Other: See Comments fatigue Simvastatin Other: See Comments Current Medications Current Outpatient Medications on File Prior to Visit Medication Sig amLODIPine (NORVASC) 2.5 mg tablet Take 1 tablet by mouth once daily. citalopram (CELEXA) 20 mg tablet Take 1 tablet by mouth once daily. semaglutide (OZEMPIC) 1 mg/dose (4 mg/3 mL) pen Inject 1 mg subcutaneously one time a week. folic acid 1 mg tablet Take 2 tablets by mouth once daily. glipiZIDE (GLUCOTROL) 10 mg tablet Take 1 tablet (10 mg) by mouth two times a day before meals. potassium chloride (K-TAB) 10 mEq tablet Take 1 tablet by mouth daily with breakfast. vi (more content not included)...[facility]04-15-[facility] History of Present illness Narrative* Frank Fuentes MD - 06/27/2024 12:38 PM EDT Chief Complaint Patient presents with: Follow Up: 3 month HPI Neelam Ryan is a 89 year old female who presents here today for Above Complaints. Patient hasbeen in good health without recent hospitalizations, ER visits. DIABETES MELLITUS: Ms. Ryan was last seen 3 months ago. Since our last visit she denies excessive thirst or increased frequency of urination, numbness, tingling or pain in extremities, new or unusual visual symptoms, and low sugar/hypoglycemic reactions. Follows a diabetic diet most of the time. She is compliant with medication(s) and is tolerating med(s) without any side effects. She reportschecking her glucose on a once a day schedule with sugars in the fasting 170-200 range in the last 2-3 weeks. States that she was still taking her Januvia with Ozempic up until that time. Patient's last HgA1C was Hemoglobin A1C (%) Date Value 06/23/2024 8.8 03/29/2024 8.3 12/12/2020 7.8 06/11/2020 8.1 ) Last Ophthalmology exam was within the past 12 months Last Podiatry exam was within the past 3 months Depression symptoms well controlled on Celexa. Denies SI/HI. BP well controlled on current regimen today. Not monitoring on a regular basis at home. Denies HTN symptoms. No changes to regimen at OV with [facility] cardiology in April for her history of CAD with triple vessel disease. No change in regimen at last OV with Dr. Montgomery in December for CKD stage IV. F/u recommended in 8 months. Notes that she was cleaning her shower more than 2 months ago and fell backwards out of it. Did nothit her head. No LOC. Had bruise on her left shoulder and right leyva which has resolved. No pain today. Using walker outside of home and cane in her home for ambulation and feels steady. Minicog today abnormal at 2 out of 5. States memory does seem to be going. Past medical history, appointments, medications, allergies reviewed. Previous Medical History PAST MEDICAL HISTORY Diagnosis Date Basal cell carcinoma Dr. Lambert Cholecystitis, unspecified Chronic kidney disease (CKD), stage IV (severe) ([facility]) Dr. Montgomery Coronary atherosclerosis of unspecified type of vessel, tulalip or graft Dr. Issac Pulliam Hammertoes of both feet Multinodular goiter 05/21/2016 Osteoarthritis Other and unspecified anemias Pure hypercholesterolemia Sciatica Swelling of lower extremity Type II or unspecified type diabetes mellitus without mention of complication, not stated as uncontrolled Podiatry-Dr. Mcgee Unspecified essential hypertension Unspecified hypothyroidism Previous Surgical History PAST SURGICAL HISTORY Procedure Laterality Date COLONOSCOPY FLX DX W/COLLJ SPEC WHEN PFRMD 01/30/2005 Colonoscopy COLONOSCOPY FLX DX W/COLLJ SPEC WHEN PFRMD 08/05/2015 Colonoscopy ESOPHAGOGASTRODUODENOSCOPY TRANSORAL DIAGNOSTIC 01/30/2005 EGD HEART CATHETERIZATION 09/2018 angiopasty of circumflex, 75% stenosis. LAD 80%. LAPAROSCOPY SURG CHOLECYSTECTOMY 12/02/2005 Cholecystectomy, lap PAST SURGICAL HISTORY OF hernia PAST SURGICAL HISTORY OF carpal tunnel both hands PAST SURGICAL HISTORY OF fingers different times PAST SURGICAL HISTORY OF trigger finger PAST SURGICAL HISTORY OF 06/21/2006 heart cath with stent placement [facility] PAST SURGICAL HISTORY OF 04/24/2008 vaginal hysterectomy, bladder suspension, rectocele PAST SURGICAL HISTORY OF 11/20/11 cardiac cath; percutaneous transluminal coronary angioplasty with stent @ [facility] PAST SURGICAL HISTORY OF left wrist surgery TOTAL THYROID LOBECTOMY UNI W/WO ISTHMUSECTOMY Right 05/21/2016 TRANSCATH STENT INIT VESSEL,PERCUT 08/18 Transcath stent init vessel percut LAD [place] [facility] Family History FAMILY HISTORY Problem Relation Age of Onset Diabetes Mother CAD, ANGIOPLASTY Diabetes Father DC other (DC) Brother other (OHS) Sister other (DC) Brother Heart Sister diabetic Heart Sister Heart Sister diabetic Heart Sister diabetic Patient Allergies ALLERGIES Allergen Reactions Accupril [Quinapril* Cough Sulfa (Sulfonamide * Hives Atorvastatin Myalgia Benzonatate Hives Gabapentin Other: See Comments fatigue Simvastatin Other: See Comments Current Medications Current Outpatient Medications on File Prior to Visit Medication Sig amLODIPine (NORVASC) 2.5 mg tablet Take 1 tablet by mouth once daily. citalopram (CELEXA) 20 mg tablet Take 1 tablet by mouth once daily. semaglutide (OZEMPIC) 1 mg/dose (4 mg/3 mL) pen Inject 1 mg subcutaneously one time a week. folic acid 1 mg tablet Take 2 tablets by mouth once daily. glipiZIDE (GLUCOTROL) 10 mg tablet Take 1 tablet (10 mg) by mouth two times a day before meals. potassium chloride (K-TAB) 10 mEq tablet Take 1 tablet by mouth daily with breakfast. vit C,C-Hn-cepay-lutein-zeaxan (PRESERVISION AREDS-2) 250-90-40-1 mg Take 1 capsule by mouth two times a day with meals. furosemide (LASIX) 40 mg tablet Take 1 tablet by mouth once daily. pantoprazole DR (PROTONIX) 40 mg tablet Take 1 tablet by mouth daily before breakfast. Take on empty stomach, 1/2 hr before meal. carvedilol (COREG) 25 mg tablet Take 1 tablet by mouth two times a day. isosorbide mononitrate ER (IMDUR) 60 mg 24 hr tablet Take 1 tablet by mouth once daily. levothyroxine (LEVOXYL) 75 mcg tablet Take 1 tablet by mouth once daily. pravastatin (PRAVACHOL) 80 mg tablet Take 1 tablet by mouth daily at bedtime. aspirin 81 mg cap Take 81 mg by mouth once daily. mecobalamin, vitamin B12, 1,000 mcg chew Take 1 tablet by mouth once daily. blood sugar diagnostic (BLOOD GLUCOSE TEST) test strip Prodigy Glucometer Test blood sugar(s) 1 time daily. Dx: Type 2 DM - Controlled E11.9 Insulin: No nitroglycerin sublingual (NITROQUICK) 0.4 mg SL tablet Dissolve 1 tablet under the tongue as needed. DISSOLVE ONE(1) TABLET UNDER THE TOUNGUE NEEDED FOR CHEST PAIN,EVERY 5 MIN X3 Lancets lancets Test blood sugar(s) 1 times daily. Dx: Type 2 DM - Controlled E11.9 Insulin: No COMPOUNDED PRESCRIPTION Prodigy Glucometer test strips Test once daily. Dx: E11.9 Insulin: No Cholecalciferol, Vitamin D3, 1,000 unit cap Take 1 capsule by mouth once daily. COMPOUNDED PRESCRIPTION Lancets Test once daily. Dx: E11.9 Insulin: No Cranberry 500 mg cap Take 1 tablet by mouth once daily. XALATAN 0.005 % EYE DROPS one drop each eye at bedtme acetaminophen (TYLENOL) 500 mg tablet Take 2 tablets by mouth every 8 hours as needed for pain. No current facility-administered medications on file prior to visit. Social History Social History Tobacco Use Smoking status: Never Smokeless tobacco: Never Vaping Use Vaping status: Never Used Substance Use Topics Alcohol use: No Drug use: No Review of Symptoms REVIEW OF SYSTEMS GENERAL: No weight loss, malaise or fevers RESPIRATORY: Negative for cough, hemoptysis, wheezing, COPD, dyspnea or shortness of breath CARDIOVASCULAR: Negative for chest pain, leg swelling, hypertension, CHF or palpitations GI: No nausea, vomiting, or diarrhea SKIN: Negative for lesions, rash, and itching ENDOCRINE: Negative for cold or heat intolerance, polyuria, polydipsia and goiter EXAM: BP 112/60 Pulse 80 Resp 16 Wt 68.9 kg (152 lb) SpO2 96% BMI 30.70 kg/m General Appearance: Well appearing, alert, in no acute distress, well-hydrated, well nourished.. Skin: Skin color, texture, turgor normal, no suspicious rashes or lesions. Lungs: Lungs clear to auscultation. No wheezing, rhonchi, rales.. Heart: RRR without murmur, gallop, or rubs. No ectopy. Abdomen: Normal abdominal exam, Abdomen soft, non-tender. Bowel sounds normal. No masses, organomegaly. Extremities: No deformities, edema, skin discoloration, clubbing or cyanosis. Good capillary refill. . Musculoskeletal: No joint swelling, deformity, or tenderness. Back: No TTP over cervical or thoracic spine. Health Maintenance List Anxiety Screening Never done Shingrix Vaccine(1 of 2) Never done Advance Directive Discussion Never done Covid-19 Vaccine( season) due on 06/27/2024 Dilated Retinal Exam due on 06/27/2024 RSV Vaccine(1 - 1-dose 75+ series) due on 09/21/2024 HbA1C due on 09/22/2024 Diabetic Foot Exam due on 06/22/2025 Urine Albumin:Creatinine Ratio due on 06/23/2025 LDL Cholesterol due on 06/23/2025 DTaP,Tdap,Td Vaccine(6 - Td or Tdap) due on 06/22/2032 Bone Density Screening Completed Influenza Vaccine Completed Pneumococcal Vaccine: 50+ Completed Data reviewed Latest Ref Rng 03/29/2024 06/23/2024 Protein, Total 6.3 - 8.0 g/dL 7.4 7.5 Albumin 3.9 - 4.9 g/dL 4.5 4.4 Calcium 8.5 - 10.2 mg/dL 9.9 10.2 Bilirubin, Total 0.2 - 1.3 mg/dL 0.5 0.6 Alkaline Phosphatase 34 - 123 U/L 58 56 AST 13 - 35 U/L 17 20 ALT 7 - 38 U/L 16 16 Glucose 74 - 99 mg/dL 252 (H) 185 (H) BUN 7 - 21 mg/dL 62 (H) 57 (H) Creatinine 0.58 - 0.96 mg/dL 1.33 (H) 1.35 (H) Sodium 136 - 144 mmol/L 135 (L) 135 (L) Potassium 3.7 - 5.1 mmol/L 4.7 4.7 Chloride 98 - 107 mmol/L 99 98 CO2 22 - 30 mmol/L 23 25 Anion Gap 8 - 15 mmol/L 13 12 eGFR >=60 mL/min/1.73m 39 (L) 38 (L) Total Cholesterol, Nonfasting <200 mg/dL 132 Triglycerides, Nonfasting <150 mg/dL 102 HDL Cholesterol, Nonfasting >39 mg/dL 53 LDL Cholesterol, Nonfasting <100 mg/dL 59 Non HDL Cholesterol, Nonfasting <130 mg/dL 79 VLDL Cholesterol, Nonfasting <30 mg/dL 20 Total Chol/HDL Ratio, Nonfasting <5.10 mg/dL 2.49 LDL/HDL Ratio, Nonfasting <2.54 mg/dL 1.11 Creatinine, Ur Random (UCRR) 20.0 - 300.0 mg/dL 36.8 Albumin, Urine Random mg/L 25.3 Albumin/Creat Ratio <30 mg/g 69 (H) Hemoglobin A1C 4.3 - 5.6 % 8.3 (H) 8.8 (H) Estimated Average Glucose mg/dL 192 206 Legend: (H) High (L) Low ASSESSMENT/PLAN: 1. Type 2 diabetes mellitus with stage 3b chronic kidney disease, without long- term current use of insulin ([facility]) - ICD9: 250.40, 585.3, ICD10: E11.22, N18.32 (primary diagnosis) - Worsening control - Increase Ozempic to 2 mg weekly. Refusing SGLT-2. - Statin prescribed - pravastatin - Blood glucose monitoring on a once daily schedule - Counseled on healthy diet and regular exercise - Discussed need for and benefit of weight loss. BMI 30.70 kg/(m^2) - Discussed diabetic education issues of diabetes complications and monitoring required, hypoglycemic/hyperglycemic symptoms, and medication-specific side effects and monitoring - Follow up in 3 months, sooner should any other issues arise. - eGFR: 38 Stable - Counseled on avoiding NSAIDs, adequate hydration - Counseled on low sodium diet - Follow up with kidney medicine - SEMAGLUTIDE 2 MG/DOSE (8 MG/3 ML) SUBCUTANEOUS PEN INJECTOR 2. Essential hypertension - ICD9: 401.9, ICD10: I10 - Controlled - Continue current medications - Recommend home blood pressure monitoring, to bring results to next visit - Encouraged sodium restriction, DASH or Mediterranean diet - Recommend regular aerobic exercise 3. Mixed hyperlipidemia - ICD9: 272.2, ICD10: E78.2 - Controlled - Continue current medications - Counseled on healthy diet and regular exercise 4. ASHD (arteriosclerotic heart disease) - ICD9: 414.00, ICD10: I25.10 Asymptomatic on medical management. F/u with cardiology as scheduled. No changes to regimen. 5. Presence of 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 - ICD9: V45.82, ICD10: Z95.5 Asymptomatic on medical management. F/u with cardiology as scheduled. No changes to regimen. 6. Recurrent major depressive disorder, in full remission - ICD9: 296.36, ICD10: F33.42 Controlled on celexa. 7. Hypertensive kidney disease with stage 3b chronic kidney disease (HCC) - ICD9: 403.90, 585.3, ICD10: I12.9, N18.32 See above. F/u with nephrology. 8. Acquired hypothyroidism - ICD9: 244.9, ICD10: E03.9 - Instructed patient on importance of taking on an empty stomach either first thing in the morning or at bedtime. - continue current dose of Synthroid 9. Memory loss - ICD9: 780.93, ICD10: R41.3 Mini cog abnormal today. Will see her back in 2 weeks for further evaluation. 10. Encounter for immunization - ICD9: V03.89, ICD10: Z23 - [employer] COVID-19 VACCINE AGE 12+ YR [facility] I spent a total of 40 minutes on the date of the service which included preparing to see the patient, [id number] patient care, completing clinical documentation, obtaining and/or reviewing separately obtained history, performing a medically appropriate examination, counseling and educating the pat ient/family/caregiver, and ordering medications, tests, or procedures. Frank Fuentes MD documented in this encounterMer[facility]04-[facility]25 NotePatient Outreach ([facility]) NEELAM RYAN ([id number]) 1935 F Date Time Provider Department 06/27/[facility] [place] During your visit today, we recorded the following information about you: Cesar Crouch RN 06/27/2024 3:52 PM Signed [facility] Care Path Telephonic Outreach Provider Action/FYI n/a Patient identified by Name and Date of . Discussed care with patient. Program Details Chronic Disease Management Status: Enrolled Effective Dates: 06/13/2024 - present Responsible Staff: Cesar Crouch, MARIVEL Support and Services: Diabetes, Hypertension, Chronic Kidney Disease (CKD) Program Goals Targets Target Due Completed Completed By Outcome Comprehensive CKD education provided 09/12/2024 -- -- -- Comprehensive Diabetes education provided 09/12/2024 -- -- -- Comprehensive HTN education provided 09/12/2024 -- -- -- Patient-stated goal addressed (add comment) 09/12/2024 -- -- -- General education provided (managing stress, where to go/how to contact, etc.) 07/13/2024 06/27/2024 Cesar Crouch RN Complete Biannual PCP visit addressed 09/12/2024 06/27/2024 Cesar Crouch RN Complete/Scheduled seen today 06/27/24 . f/u for 07/11/24 3 mos f/u 09/26/24 CKD lab care gaps addressed 09/12/2024 06/27/2024 Cesar Crouch RN Complete/Scheduled cmp 06/23/24 Diabetes lab care gaps addressed 09/12/2024 06/27/2024 Cesar Crouch RN Complete/Scheduled done 06/23/24 HTN lab care gaps addressed 09/12/2024 06/27/2024 Cesar Crouch RN Complete/Scheduled 06/23/24 Intake assessments completed: ADLs, Fall Risk, SDOH 07/13/2024 06/13/2024 Cesar Crouch RN Complete Annual Medicare Wellness visit addressed 09/12/2024 06/13/2024 Cesar Crouch RN Complete/Scheduled Annual Nephrology visit addressed 09/12/2024 06/13/2024 Cesar Crouch RN Complete/Scheduled Dr Montgomery at [facility] - August 2024 Assessments No documentation this encounter Interventions The following were addressed during this visit: - HTN lab care gaps addressed - Diabetes lab care gaps addressed - CKD lab care gaps addressed - Biannual PCP visit addressed - General education provided (managing stress, where to go/how to contact, etc.) - Bi-Weekly Outreach (Recurring) Cesar Crouch RN June 27, 2024 3:48 PM Allergies As of Date: 06/27/2024 Noted Allergy Reaction ACCUPRIL (QUINAPRIL HCL) 12/24/2004 3 - Cough SULFA (SULFONAMIDE ANTIBIOTICS) 12/24/2004 4 - Hives ATORVASTATIN 01/09/2016 17 - Myalgia BENZONATATE 01/09/2016 4 - Hives GABAPENTIN 01/14/2018 14 - Other: See Comments Comments: fatigue SIMVASTATIN 01/09/2016 14 - Other: See Comments Date Reviewed: 06/27/2024 Reviewed by: Trina Moore LPN - Fully Assessed Reason for Visit: 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 Take on empty stomach, 1/2 hr before meal. - furosemide (LASIX) 40 mg tablet Take 1 tablet by mouth once daily. - empagliflozin (JARDIANCE) 10 mg tablet Take 1 tablet by mouth daily with breakfast. - carvedilol (COREG) 25 mg tablet Take 1 tablet by mouth two times a day. - isosorbide mononitrate ER (IMDUR) 60 mg 24 hr tablet Take 1 tablet by mouth once daily. - levothyroxine (LEVOXYL) 75 mcg tablet Take 1 tablet by mouth once daily. - pravastatin (PRAVACHOL) 80 mg tablet Take 1 tablet by mouth daily at bedtime. - semaglutide (OZEMPIC) 2 mg/dose (8 mg/3 mL) pen injector Inject 2 mg subcutaneously one time a week. - amLODIPine (NORVASC) 2.5 mg tablet Take 1 tablet by mouth once daily. - citalopram (CELEXA) 20 mg tablet Take 1 tablet by mouth once daily. - folic acid 1 mg tablet Take 2 tablets by mouth once daily. - glipiZIDE (GLUCOTROL) 10 mg tablet Take 1 tablet (10 mg) by mouth two times a day before meals. - potassium chloride (K-TAB) 10 mEq tablet Take 1 tablet by mouth daily with breakfast. - vit C,Z-Ol-ljgib-lutein-zeaxan (PRESERVISION AREDS-2) 250-90-40-1 mg Take 1 capsule by mouth two times a day with meals. - aspirin 81 mg cap Take 81 mg by mouth once daily. - mecobalamin, vitamin B12, 1,000 mcg chew Take 1 tablet by mouth once daily. - acetaminophen (TYLENOL) 500 mg tablet Take 2 tablets by mouth every 8 hours as needed for pain. - blood sugar diagnostic (BLOOD GLUCOSE TEST) test strip Prodigy Glucometer Test blood sugar(s) 1 time daily. Dx: Type 2 DM - Controlled E11.9 Insulin: No - nitroglycerin sublingual (NITROQUICK) 0.4 mg SL tablet Dissolve 1 tablet under the tongue as needed. DISSOLVE ONE(1) TABLET UNDER THE TOUNGUE NEEDED FOR CHEST PAIN,EVERY 5 MIN X3 - Lancets lancets Test blood sugar(s) 1 times daily. Dx: Type 2 DM - Controlled E11.9 Insulin: No - COMPOUNDED PRESCRIPTION Prodigy Glucometer test strips Test once daily. Dx: E11.9 Insulin: No - Cholecalciferol, Vitamin D3, 1,000 unit (more content not included)... [facility]04-10-2025 NoteHNO ID: [id number] Author: KAROLINA MCGEE, ? Service: ? Author Type: Physician Type: Progress Notes Filed: 06/22/2024 13:20 Note Text: Last saw pcp: 03/29/24 Subjective: This 89 year old female presents to clinic for diabetic foot check. Patient has the following complaints: painful toenails. . Patient admits to being diabetic for multiple years now. Patient -B/T/N in feet at this time. Patient -pain in legs when walking. No other pedal complaints at this time. No change in medications or medical history since last visit. PAIN EVALUATION No data found in the last 1 encounters. Hemoglobin A1C (%) Date Value 03/29/2024 8.3 12/28/2023 8.3 09/22/2023 8.8 06/24/2023 8.9 03/24/2023 7.6 12/12/2020 7.8 06/11/2020 8.1 12/01/2019 7.2 08/30/2019 7.0 04/17/2019 7.2 PCP: Frank Fuentes MD PAST MEDICAL HISTORY Diagnosis Date Basal cell carcinoma Dr. Lambert Cholecystitis, unspecified Chronic kidney disease (CKD), stage IV (severe) (HCC) Dr. Montgomery Coronary atherosclerosis of unspecified type of vessel, tulalip or graft Dr. Issac Pulliam Hammertoes of both feet Multinodular goiter 05/21/2016 Osteoarthritis Other and unspecified anemias Pure hypercholesterolemia Sciatica Swelling of lower extremity Type II or unspecified type diabetes mellitus without mention of complication, not stated as uncontrolled Podiatry-Dr. Mcgee Unspecified essential hypertension Unspecified hypothyroidism Current Outpatient Medications Medication Sig amLODIPine (NORVASC) 2.5 mg tablet Take 1 tablet by mouth once daily. citalopram (CELEXA) 20 mg tablet Take 1 tablet by mouth once daily. semaglutide (OZEMPIC) 1 mg/dose (4 mg/3 mL) pen Inject 1 mg subcutaneously one time a week. folic acid 1 mg tablet Take 2 tablets by mouth once daily. glipiZIDE (GLUCOTROL) 10 mg tablet Take 1 tablet (10 mg) by mouth two times a day before meals. potassium chloride (K-TAB) 10 mEq tablet Take 1 tablet by mouth daily with breakfast. vit C,R-Eo-ojdfx-lutein-zeaxan (PRESERVISION AREDS-2) 250-90-40-1 mg Take 1 capsule by mouth two times a day with meals. furosemide (LASIX) 40 mg tablet Take 1 tablet by mouth once daily. pantoprazole DR (PROTONIX) 40 mg tablet Take 1 tablet by mouth daily before breakfast. Take on empty stomach, 1/2 hr before meal. carvedilol (COREG) 25 mg tablet Take 1 tablet by mouth two times a day. isosorbide mononitrate ER (IMDUR) 60 mg 24 hr tablet Take 1 tablet by mouth once daily. levothyroxine (LEVOXYL) 75 mcg tablet Take 1 tablet by mouth once daily. pravastatin (PRAVACHOL) 80 mg tablet Take 1 tablet by mouth daily at bedtime. aspirin 81 mg cap Take 81 mg by mouth once daily. mecobalamin, vitamin B12, 1,000 mcg chew Take 1 tablet by mouth once daily. acetaminophen (TYLENOL) 500 mg tablet Take 2 tablets by mouth every 8 hours as needed for pain. blood sugar diagnostic (BLOOD GLUCOSE TEST) test strip Prodigy Glucometer Test blood sugar(s) 1 time daily. Dx: Type 2 DM - Controlled E11.9 Insulin: No nitroglycerin sublingual (NITROQUICK) 0.4 mg SL tablet Dissolve 1 tablet under the tongue as needed. DISSOLVE ONE(1) TABLET UNDER THE TOUNGUE NEEDED FOR CHEST PAIN,EVERY 5 MIN X3 Lancets lancets Test blood sugar(s) 1 times daily. Dx: Type 2 DM - Controlled E11.9 Insulin: No COMPOUNDED PRESCRIPTION Prodigy Glucometer test strips Test once daily. Dx: E11.9 Insulin: No Cholecalciferol, Vitamin D3, 1,000 unit cap Take 1 capsule by mouth once daily. COMPOUNDED PRESCRIPTION Lancets Test once daily. Dx: E11.9 Insulin: No Cranberry 500 mg cap Take 1 tablet by mouth once daily. XALATAN 0.005 % EYE DROPS one drop each eye at [facility] No current facility-administered medications for this visit. ALLERGIES Allergen Reactions Accupril [Quinapril* Cough Sulfa (Sulfonamide * Hives Atorvastatin Myalgia Benzonatate Hives Gabapentin Other: See Comments fatigue Simvastatin Other: See Comments PAST SURGICAL HISTORY Procedure Laterality Date COLONOSCOPY FLX DX W/COLLJ SPEC WHEN PFRMD 01/30/2005 Colonoscopy COLONOSCOPY FLX DX W/COLLJ SPEC WHEN PFRMD 08/05/2015 Colonoscopy ESOPHAGOGASTRODUODENOSCOPY TRANSORAL DIAGNOSTIC 01/30/2005 EGD HEART CATHETERIZATION 09/2018 angiopasty of circumflex, 75% stenosis. LAD 80%. LAPAROSCOPY SURG CHOLECYSTECTOMY 12/02/2005 Cholecystectomy, lap PAST SURGICAL HISTORY OF hernia PAST SURGICAL HISTORY OF carpal tunnel both hands PAST SURGICAL HISTORY OF fingers different times PAST SURGICAL HISTORY OF trigger finger PAST SURGICAL HISTORY OF 06/21/2006 heart cath with stent placement [facility] PAST SURGICAL HISTORY OF 04/24/2008 vaginal hysterectomy, bladder suspension, rectocele PAST SURGICAL HISTORY OF 11/20/11 cardiac cath; percutaneous transluminal coronary angioplasty with stent @ [facility] PAST SURGICAL HISTORY OF left wrist surgery TOTAL THYROID LOBECTOMY UNI W/WO ISTH (more content not included)...[facility]04-10-2025 History of Present illness Narrative* Karolina Mcgee - 06/22/2024 1:06 PM EDT Last saw pcp: 03/29/24 Subjective: This 89 year old female presents to clinic for diabetic foot check. Patient has the following complaints: painful toenails. . Patient admits to being diabetic for multiple years now. Patient -B/T/N in feet at this time. Patient -pain in legs when walking. No other pedal complaints at this time. No change in medications or medical history since last visit. PAIN EVALUATION No data found in the last 1 encounters. Hemoglobin A1C (%) Date Value 03/29/2024 8.3 12/28/2023 8.3 09/22/2023 8.8 06/24/2023 8.9 03/24/2023 7.6 12/12/2020 7.8 06/11/2020 8.1 12/01/2019 7.2 08/30/2019 7.0 04/17/2019 7.2 PCP: Frank Fuentes MD PAST MEDICAL HISTORY Diagnosis Date Basal cell carcinoma Dr. Lambert Cholecystitis, unspecified Chronic kidney disease (CKD), stage IV (severe) (HCC) Dr. Montgomery Coronary atherosclerosis of unspecified type of vessel, tulalip or graft Dr. Davenport Depression Hammertoes of both feet Multinodular goiter 05/21/2016 Osteoarthritis Other and unspecified anemias Pure hypercholesterolemia Sciatica Swelling of lower extremity Type II or unspecified type diabetes mellitus without mention of complication, not stated as uncontrolled Podiatry-Dr. Mcgee Unspecified essential hypertension Unspecified hypothyroidism Current Outpatient Medications Medication Sig amLODIPine (NORVASC) 2.5 mg tablet Take 1 tablet by mouth once daily. citalopram (CELEXA) 20 mg tablet Take 1 tablet by mouth once daily. semaglutide (OZEMPIC) 1 mg/dose (4 mg/3 mL) pen Inject 1 mg subcutaneously one time a week. folic acid 1 mg tablet Take 2 tablets by mouth once daily. glipiZIDE (GLUCOTROL) 10 mg tablet Take 1 tablet (10 mg) by mouth two times a day before meals. potassium chloride (K-TAB) 10 mEq tablet Take 1 tablet by mouth daily with breakfast. vit C,Q-Xk-kprrn-lutein-zeaxan (PRESERVISION AREDS-2) 250-90-40-1 mg Take 1 capsule by mouth two times a day with meals. furosemide (LASIX) 40 mg tablet Take 1 tablet by mouth once daily. pantoprazole DR (PROTONIX) 40 mg tablet Take 1 tablet by mouth daily before breakfast. Take on empty stomach, 1/2 hr before meal. carvedilol (COREG) 25 mg tablet Take 1 tablet by mouth two times a day. isosorbide mononitrate ER (IMDUR) 60 mg 24 hr tablet Take 1 tablet by mouth once daily. levothyroxine (LEVOXYL) 75 mcg tablet Take 1 tablet by mouth once daily. pravastatin (PRAVACHOL) 80 mg tablet Take 1 tablet by mouth daily at bedtime. aspirin 81 mg cap Take 81 mg by mouth once daily. mecobalamin, vitamin B12, 1,000 mcg chew Take 1 tablet by mouth once daily. acetaminophen (TYLENOL) 500 mg tablet Take 2 tablets by mouth every 8 hours as needed for pain. blood sugar diagnostic (BLOOD GLUCOSE TEST) test strip Prodigy Glucometer Test blood sugar(s) 1 time daily. Dx: Type 2 DM - Controlled E11.9 Insulin: No nitroglycerin sublingual (NITROQUICK) 0.4 mg SL tablet Dissolve 1 tablet under the tongue as needed. DISSOLVE ONE(1) TABLET UNDER THE TOUNGUE NEEDED FOR CHEST PAIN,EVERY 5 MIN X3 Lancets lancets Test blood sugar(s) 1 times daily. Dx: Type 2 DM - Controlled E11.9 Insulin: No COMPOUNDED PRESCRIPTION Prodigy Glucometer test strips Test once daily. Dx: E11.9 Insulin: No Cholecalciferol, Vitamin D3, 1,000 unit cap Take 1 capsule by mouth once daily. COMPOUNDED PRESCRIPTION Lancets Test once daily. Dx: E11.9 Insulin: No Cranberry 500 mg cap Take 1 tablet by mouth once daily. XALATAN 0.005 % EYE DROPS one drop each eye at [facility] No current facility-administered medications for this visit. ALLERGIES Allergen Reactions Accupril [Quinapril* Cough Sulfa (Sulfonamide * Hives Atorvastatin Myalgia Benzonatate Hives Gabapentin Other: See Comments fatigue Simvastatin Other: See Comments PAST SURGICAL HISTORY Procedure Laterality Date COLONOSCOPY FLX DX W/COLLJ SPEC WHEN PFRMD 01/30/2005 Colonoscopy COLONOSCOPY FLX DX W/COLLJ SPEC WHEN PFRMD 08/05/2015 Colonoscopy ESOPHAGOGASTRODUODENOSCOPY TRANSORAL DIAGNOSTIC 01/30/2005 EGD HEART CATHETERIZATION 09/2018 angiopasty of circumflex, 75% stenosis. LAD 80%. LAPAROSCOPY SURG CHOLECYSTECTOMY 12/02/2005 Cholecystectomy, lap PAST SURGICAL HISTORY OF hernia PAST SURGICAL HISTORY OF carpal tunnel both hands PAST SURGICAL HISTORY OF fingers different times PAST SURGICAL HISTORY OF trigger finger PAST SURGICAL HISTORY OF 06/21/2006 heart cath with stent placement [facility] PAST SURGICAL HISTORY OF 04/24/2008 vaginal hysterectomy, bladder suspension, rectocele PAST SURGICAL HISTORY OF 11/20/11 cardiac cath; percutaneous transluminal coronary angioplasty with stent @ [facility] PAST SURGICAL HISTORY OF left wrist surgery TOTAL THYROID LOBECTOMY UNI W/WO ISTHMUSECTOMY Right 05/21/2016 TRANSCATH STENT INIT VESSEL,PERCUT 08/18 Transcath stent init vessel percut LAD [facility] FAMILY HISTORY Problem Relation Age of Onset Diabetes Mother CAD, ANGIOPLASTY Diabetes Father DC other (DC) Brother other (OHS) Sister other (DC) Brother Heart Sister diabetic Heart Sister Heart Sister diabetic Heart Sister diabetic Social History Tobacco Use Smoking status: Never Smokeless tobacco: Never Vaping Use Vaping status: Never Used Substance Use Topics Alcohol use: No Drug use: No REVIEW OF SYSTEMS GENERAL: Negative for Malaise, significant weight loss, fever RESPIRATORY: Negative for cough, wheezing and shortness of breath CARDIOVASCULAR: Negative for chest pain, leg swelling and palpitations GI: Negative for abdominal discomfort, blood in stools or black stools and change in bowel habits : Negative for dysuria, frequency and incontinence MUSCULOSKELETAL: Negative for joint pain or swelling, back pain, and muscle pain. SKIN: Negative for lesions, rash, and itching. HEMATOLOGY/LYMPHOLOGY Negative for prolonged bleeding, bruising easily, and swollen nodes. ENDOCRINE: Negative for cold or heat intolerance, polyuria, polydipsia and goiter. NEURO: negative The remainder of the review of systems is noncontributory. Objective: Patient presents to clinic ambulating in diabetic shoes Constitutional: Pt is a well developed 89 year old female who is alert, oriented, cooperative and in no apparent distress. Eyes: Following during examination. No redness or drainage. Respiratory: RR normal and nonlabored. Even breathing. No evidence of distress. Psychology: Patient is engaged during conversation. Normal affect and mood. Does not appear depressed or anxious. Vasc: DP and PT pulses are palpable bilateral. CFT is less than 5 seconds bilateral. Skin temperature is warm to cool proximal to distal bilateral. There is mild edema or varicosities noted. Hair growth present. Neuro: Protective sensation is intact to the foot and toes when tested with the 5.07 SWM bilateral.Vibratory sensation is decreased at the hallux bilateral. + Significant neurological defecits. Derm: Inspection and palpation performed. Nails 1-5 b/l are painful, discolored- yellow, thick, crumbly, dystrophic and with subungal debris. Left hallux medial nail border is ingrowing with pain. No signs of infection. Skin is of normal turgor and texture. Hyperkeratosis noted to dorsal aspect of right 2nd toe. NO ulcerations, scars, verruca or other lesions noted. Ortho: Ankle joint DF is decreased with the knee extended and decreased with knee flexed. No pain or crepitus noted. STJ, MTJ ROM are full and free of pain or crepitus. Muscle strength is 5/5 for dorsiflexors, plantarflexors, inverters, everters. Digital deformities include bunion b/l feet. Hammertoe of b/l 2nd toe R>L. Assessment: (B35.1) Onychomycosis (primary encounter diagnosis) (M79.674) Pain in toe of right foot (M79.675) Pain in toe of left foot (E11.9) Type 2 diabetes mellitus without complication, without long-term current use of insulin (HCC) (M20.41) Hammer toe of right foot (M20.11) Acquired hallux valgus of right foot (M20.12) Acquired hallux valgus of left foot (L84) Callus Plan: 1. Patient was seen and evaluated. 2. Patient was instructed on the continued importance of diabetic foot care along with proper diet and keeping their blood sugar under control to prevent complications. Instructions given both oral and written. I stressed the importance of avoiding barefoot walking, wearing good shoes and inspection of feet. I discussed how this patient suffers from neuropathy and that it is important that she monitor for any open wounds. If she develops any issues, she is to contact our office immediately and we will have them seen. 3. Patient has ingrowing tendency of left hallux medial nail border. Options include periodic debridement vs partial nail matrixectomy. She may consider options. Toenails 1-5 b/l debrided in length and thickness. Small bleed to left hallux treated with band aide 4. Callus of right 2nd toe reduced with dremmel. Discussed hammertoe of right 2nd toe. Not a functional toe due to crossover deformity. Options include monitoring vs amputation of 2nd toe vs reconstruction of first and 2nd toe. She is going to monitor 5. F/u in 3 months or sooner if problems arise Karolina Mcgee DPM * Marisol Hu RN - 06/22/2024 1:02 PM EDT Patient presents with: Left Foot - Established Patient, Follow Up, Diabetic Foot Check Right Foot - Established Patient, Follow Up, Diabetic Foot Check Patient presents for follow up diabetic foot/nail care. Also due for a diabetic foot exam. KASANDRA 03/21/24 [facility] Instructions* Patient Instructions* Karolina Mcgee - 06/22/2024 1:06 PM EDT Diabetes Foot Care Instructions When you have diabetes, proper foot care is very important. Poor foot care may lead to amputation of a foot or leg. As a person with diabetes, you are more vulnerable to foot problems, because diabetes can damage your nerves and reduce blood flow to your feet. Here are some diabetes foot care tips to follow: Wash and Dry Your Feet Daily Use mild soaps Use warm water Pat your skin dry; do not rub. Thoroughly dry your feet. After washing, use lotion on your feet to prevent cracking. Do not put lotion between your toes. Examine Your Feet Each Day Check the tops and bottoms of your feet. Have someone else look at your feet if you cannot see them. Check for dry, cracked skin. Look for blisters, cuts, scratches, or other sores. Check for redness, increased warmth, or tenderness when touching any area of your feet. Check for ingrown toenails, corns, and calluses. If you get a blister or sore from your shoes, do not pop it. Apply a bandage and wear a differentpair of shoes. Take Care of Your Toenails Cut toenails after bathing, when they are soft. Cut toenails straight across and smooth with a nail file. Avoid cutting into the corners of toes. Do not cut cuticles. If you have neuropathy (or decreased sensation in your feet) a finish saw operator should always cut your toenails. Be Careful When Exercising Walk and exercise in comfortable shoes. Do not exercise when you have open sores on your feet. Protect Your Feet With Shoes and Socks Never go barefoot. Always protect your feet by wearing shoes or hard-soled slippers or footwear. Avoid shoes with high heels and pointed toes. Avoid shoes that expose your toes or heels (such as open-toed shoes or sandals). These types of shoes increase your risk for injury and potential infections. Try on new footwear with the type of socks you usually wear. Do not wear new shoes for more than an hour at a time. Change your socks daily. Look and feel inside your shoes before putting them on to make sure there are no foreign objects orrough areas. Avoid tight socks. Wear natural-fiber socks (cotton, wool, or a cotton-wool blend). Wear special shoes if your health care provider recommends them. Wear shoes/boots that will protect your feet from various weather conditions (cold, moisture, etc.). Make sure your shoes fit properly. If you have neuropathy (nerve damage), you may not notice that your shoes are too tight. Perform the footwear test described below. Footwear Test Use this simple test to see if your shoes fit correctly: Stand on a piece of paper. (Make sure you are standing and not sitting, because your foot changes shape when you stand.) Trace the outline of your foot. Trace the outline of your shoe. Compare the tracings: Is the shoe too narrow? Is your foot crammed into the shoe? The shoe should be at least 1/2 inch longer than your longest toe and as wide as your foot. Proper Shoe Choices The following types of shoes are best for people with diabetes Closed toes and heels Leather uppers without a seam inside At least 1/2 inch extra space at the end of your longest toe Inside of shoe should be soft with no rough areas Outer sole should be made of stiff material Shoes should be at least as wide as your feet Tips for Foot Care in Diabetes Don't wait to treat a minor foot problem if you have diabetes. Follow your health care provider's guidelines and first aid guidelines. Report foot injuries and infections to your health care provider immediately. Check water temperature with your elbow, not your foot. Do not use a heating pad on your feet. Do not cross your legs. Do not self-treat your corns, calluses, or other foot problems. Go to your health care provider or finish saw operator to treat these conditions. documented in this [facility]04-[facility]25 NoteHNO ID: [id number] Author: MARISOL HU RN Service: ? Author Type: Registered Nurse Type: Progress Notes Filed: 06/22/2024 13:20 Note Text: Patient presents with: Left Foot - Established Patient, Follow Up, Diabetic Foot Check Right Foot - Established Patient, Follow Up, Diabetic Foot Check Patient presents for follow up diabetic foot/nail care. Also due for a diabetic foot exam. KASANDRA 03/21/24[facility] NoteHNO ID: [id number] Author: MARISOL HOLM RN Service: ? Author Type: Registered Nurse Type: Progress Notes Filed: 06/14/2024 11:23 Note Text: Pt called and is notified of providers message and instructions. Pt voices understanding. Marisol Holm [facility]NMer[facility]04-[facility] History of Present illness Narrative* Marisol Holm RN - 06/14/2024 11:22 AM EDT Pt called and is notified of providers message and instructions. Pt voices understanding. Marisol Holm RN * rFank Fuentes MD - 06/14/2024 10:53 AM EDT Rx sent. Labs ordered to be completed 2-3 days prior to OV. * Cesar Crouch RN - 06/13/2024 4:14 PM EDT [facility] Provider Action / FYI: patient has wellness visit 06/27/24 per cdm patient may be due for Lipid panel , BMP , Urine Albumin/Creatine and A1c patient is in need of refills for amlodipine and Celexa - to Jonathan nieves orders pended Patient identified by name and date of . Discussed care with patient. Program Details Chronic Disease Management Status: Enrolled Effective Dates: 06/13/2024 - present Responsible Staff: Cesar Crouch, MARIVEL Support and Services: Diabetes, Hypertension, Chronic Kidney Disease (CKD) Assessments CDM Assessment Medications: Do you have any questions about taking your medications or which medications you should be taking?:No Do you need any medication refills at this time, including any of the medication you might take only when needed?: Yes Social: It can be normal to feel anxious or down during a time like this. Would you like to talk to a mental health professional about how you have been feeling?: Yes (declines behavioral at this time) Symptoms: Are you experiencing any new or worsening symptoms that you need to talk about today?: No ADLs Patients can perform the following activities without help: Dressing: Yes Bathing: Yes Doing laundry: Yes Climbing a flight of stairs: No (no stairs) Walking briskly: Yes (cane , sometimes walker) Instrumental activities of daily living Do you drive a car?: Yes Do you need help from others to take care of things inside the house, for example: laundry, house cleaning, preparing meals?: No Do you need help from others with errands outside the house, for example: shopping for groceries orclothes, going medical appointments?: No Fall Risk One or more falls in the last year:: Yes (1 mos ago out of shower - no hit head) Any near falls in the last year?: Yes Advised to use a cane or walker to get around safely:: Yes (cane , walker) Feels unsteady when walking:: Yes Steadies self on furniture while walking at home:: Yes Worried about falling:: Yes Needs to push with hands when rising from a chair:: No Has trouble stepping up onto a curb:: Yes Often has to victor to the toilet:: Yes Has lost some feeling in feet:: No Takes medicine that makes him/her feel lightheaded or more tired than usual:: No Takes medicine to sleep or improve mood:: Yes (takes meds for pm does not rememeber the name) Fall risk factors:: Foot problems SDOH Financial Resource Strain How hard is it for you to pay for the very basics like food, housing, medical care, and heating?: Not hard at all Housing Stability In the last 12 months, was there a time when you were not able to pay the mortgage or rent on time?: No In the past 12 months, how many times have you moved where you were living?: 0 At any time in the past 12 months, were you homeless or living in a senior care (including now)?: No Transportation Needs In the past 12 months, has lack of transportation kept you from medical appointments or from getting medications?: No In the past 12 months, has lack of transportation kept you from meetings, work, or from getting things needed for daily living?: No Food Insecurity Within the past 12 months, you worried that your food would run out before you got the money to buymore.: Never true Within the past 12 months, the food you bought just didn't last and you didn't have money to get more.: Never true Utilities In the past 12 months has the electric, gas, oil, or water company threatened to shut off services in your home?: No Tobacco Use Patient reports that she has never smoked. She has never used smokeless tobacco. Interventions The following were addressed during this visit: - Initial enrollment outreach - Annual Nephrology visit addressed - Intake assessments completed: ADLs, Fall Risk, SDOH - Annual Medicare Wellness visit addressed Disposition Based on ruling machine feeder, the following disposition is advised: No action needed Cesar Crouch RN June 13, 2024 4:14 PM documented in [facility] NoteHNO ID: [id number] Author: FRANK FUENTES MD Service: ? Author Type: Physician Type: Progress Notes Filed: 06/14/2024 11:23 Note Text: Rx sent. Labs ordered to be completed 2-3 days prior to OV.[facility]04-01-2025 NoteHNO ID: [id number] Author: CESAR CROUCH RN Service: ? Author Type: Registered Nurse Type: Progress Notes Filed: 06/14/2024 11:23 Note Text: CDM ENROLLMENT Provider Action / FYI: patient has wellness visit 06/27/24 per cdm patient may be due for Lipid panel , BMP , Urine Albumin/Creatine and A1c patient is in need of refills for amlodipine and Celexa - to [facility] orders pended Patient identified by name and date of . Discussed care with patient. Program Details Chronic Disease Management Status: Enrolled Effective Dates: 06/13/2024 - present Responsible Staff: Cesar Crouch RN Support and Services: Diabetes, Hypertension, Chronic Kidney Disease (CKD) Assessments CDM Assessment Medications: Do you have any questions about taking your medications or which medications you should be taking?: No Do you need any medication refills at this time, including any of the medication you might take only when needed?: Yes Social: It can be normal to feel anxious or down during a time like this. Would you like to talk to a mental health professional about how you have been feeling?: Yes (declines behavioral at this time) Symptoms: Are you experiencing any new or worsening symptoms that you need to talk about today?: No ADLs Patients can perform the following activities without help: Dressing: Yes Bathing: Yes Doing laundry: Yes Climbing a flight of stairs: No (no stairs) Walking briskly: Yes (cane , sometimes walker) Instrumental activities of daily living Do you drive a car?: Yes Do you need help from others to take care of things inside the house, for example: laundry, house cleaning, preparing meals?: No Do you need help from others with errands outside the house, for example: shopping for groceries or clothes, going medical appointments?: No Fall Risk One or more falls in the last year:: Yes (1 mos ago out of shower - no hit head) Any near falls in the last year?: Yes Advised to use a cane or walker to get around safely:: Yes (cane , walker) Feels unsteady when walking:: Yes Steadies self on furniture while walking at home:: Yes Worried about falling:: Yes Needs to push with hands when rising from a chair:: No Has trouble stepping up onto a curb:: Yes Often has to victor to the toilet:: Yes Has lost some feeling in feet:: No Takes medicine that makes him/her feel lightheaded or more tired than usual:: No Takes medicine to sleep or improve mood:: Yes (takes meds for pm does not rememeber the name) Fall risk factors:: Foot problems SDOH Financial Resource Strain How hard is it for you to pay for the very basics like food, housing, medical care, and heating?: Not hard at all Housing Stability In the last 12 months, was there a time when you were not able to pay the mortgage or rent on time?: No In the past 12 months, how many times have you moved where you were living?: 0 At any time in the past 12 months, were you homeless or living in a senior care (including now)?: No Transportation Needs In the past 12 months, has lack of transportation kept you from medical appointments or from getting medications?: No In the past 12 months, has lack of transportation kept you from meetings, work, or from getting things needed for daily living?: No Food Insecurity Within the past 12 months, you worried that your food would run out before you got the money to buy more.: Never true Within the past 12 months, the food you bought just didn't last and you didn't have money to get more.: Never true Utilities In the past 12 months has the electric, gas, oil, or water company threatened to shut off services in your home?: No Tobacco Use Patient reports that she has never smoked. She has never used smokeless tobacco. Interventions The following were addressed during this visit: - Initial enrollment outreach - Annual Nephrology visit addressed - Intake assessments completed: ADLs, Fall Risk, SDOH - Annual Medicare Wellness visit addressed Disposition Based on ruling machine feeder, the following disposition is advised: No action needed Cesar Crouch RN June 13, 2024 4:14 [facility]04-01-2025 NotePatient Outreach (AMBG) NEELAM RYAN ([id number]) 1935 F Date Time Provider Department 06/13/24 CESAR CROUCH [facility] [place] During your visit today, we recorded the following information about you: Cesar Crouch RN 06/14/2024 11:23 AM Signed CDM ENROLLMENT Provider Action / FYI: patient has wellness visit 06/27/24 per cdm patient may be due for Lipid panel , BMP , Urine Albumin/Creatine and A1c patient is in need of refills for amlodipine and Celexa - to [facility] nieves orders pended Patient identified by name and date of . Discussed care with patient. Program Details Chronic Disease Management Status: Enrolled Effective Dates: 06/13/2024 - present Responsible Staff: Cesar Crouch, RN Support and Services: Diabetes, Hypertension, Chronic Kidney Disease (CKD) Assessments CDM Assessment Medications: Do you have any questions about taking your medications or which medications you should be taking?: No Do you need any medication refills at this time, including any of the medication you might take only when needed?: Yes Social: It can be normal to feel anxious or down during a time like this. Would you like to talk to a mental health professional about how you have been feeling?: Yes (declines behavioral at this time) Symptoms: Are you experiencing any new or worsening symptoms that you need to talk about today?: No ADLs Patients can perform the following activities without help: Dressing: Yes Bathing: Yes Doing laundry: Yes Climbing a flight of stairs: No (no stairs) Walking briskly: Yes (cane , sometimes walker) Instrumental activities of daily living Do you drive a car?: Yes Do you need help from others to take care of things inside the house, for example: laundry, house cleaning, preparing meals?: No Do you need help from others with errands outside the house, for example: shopping for groceries or clothes, going medical appointments?: No Fall Risk One or more falls in the last year:: Yes (1 mos ago out of shower - no hit head) Any near falls in the last year?: Yes Advised to use a cane or walker to get around safely:: Yes (cane , walker) Feels unsteady when walking:: Yes Steadies self on furniture while walking at home:: Yes Worried about falling:: Yes Needs to push with hands when rising from a chair:: No Has trouble stepping up onto a curb:: Yes Often has to victor to the toilet:: Yes Has lost some feeling in feet:: No Takes medicine that makes him/her feel lightheaded or more tired than usual:: No Takes medicine to sleep or improve mood:: Yes (takes meds for pm does not rememeber the name) Fall risk factors:: Foot problems SDOH Financial Resource Strain How hard is it for you to pay for the very basics like food, housing, medical care, and heating?: Not hard at all Housing Stability In the last 12 months, was there a time when you were not able to pay the mortgage or rent on time?: No In the past 12 months, how many times have you moved where you were living?: 0 At any time in the past 12 months, were you homeless or living in a senior care (including now)?: No Transportation Needs In the past 12 months, has lack of transportation kept you from medical appointments or from getting medications?: No In the past 12 months, has lack of transportation kept you from meetings, work, or from getting things needed for daily living?: No Food Insecurity Within the past 12 months, you worried that your food would run out before you got the money to buy more.: Never true Within the past 12 months, the food you bought just didn't last and you didn't have money to get more.: Never true Utilities In the past 12 months has the [employer], gas, oil, or water [employer] threatened to shut off services in your home?: No Tobacco Use Patient reports that she has never smoked. She has never used smokeless tobacco. Interventions The following were addressed during this visit: - Initial enrollment outreach - Annual Nephrology visit addressed - Intake assessments completed: ADLs, Fall Risk, SDOH - Annual Medicare Wellness visit addressed Disposition Based on ruling machine feeder, the following disposition is advised: No action needed Cesar Crouch RN June 13, 2024 4:14 PM Frank Fuentes MD 06/14/2024 11:23 AM Signed Rx sent. Labs ordered to be completed 2-3 days prior to OV. Marisol Holm RN 06/14/2024 11:23 AM Signed Pt called and is notified of providers message and instructions. Pt voices understanding. Marisol Holm RN Allergies As of Date: 06/13/2024 Noted Allergy Reaction ACCUPRIL (QUINAPRIL HCL) 12/24/2004 3 - Cough SULFA (SULFONAMIDE ANTIBIOTICS) 12/24/2004 4 - Hives ATORVASTATIN 01/09/2016 17 - Myalgia BENZONATATE 01/09/2016 4 - Hives GABAPENTIN 01/14/2018 14 - Other: See Comments Comments: fatigue SIMVASTATIN 01/09/20 (more content not included)...[facility] 06-02-2024 Telephone encounter Note* Telephone Encounter - Rakel New MA - 06/02/2024 10:46 AM EDT Patient called requesting the following refill. Requested Prescriptions Pending Prescriptions Disp Refills semaglutide (OZEMPIC) 1 mg/dose (4 mg/3 mL) pen 9 mL 1 Sig: Inject 1 mg subcutaneously one time a week. Patient last appointment: 03/29/24 Patient Phone numbers: [phone] (home) Request is for script(s) to be escript to pharmacy. Rakel New MA [facility]03-21-2025 Miscellaneous Notes* Telephone Encounter - Rakel New MA - 06/02/2024 10:46 AM EDT Patient called requesting the following refill. Requested Prescriptions Pending Prescriptions Disp Refills semaglutide (OZEMPIC) 1 mg/dose (4 mg/3 mL) pen 9 mL 1 Sig: Inject 1 mg subcutaneously one time a week. Patient last appointment: 03/29/24 Patient Phone numbers: [phone] (home) Request is for script(s) to be escript to pharmacy. Rakel New MA * Telephone Encounter - Abigail Sawyer - 06/02/2024 10:11 AM EDT Neelam is a patient of Frank Fuentes MD today to request medication, not on current list. Please send to [facility]: Disp Refills Start End semaglutide (OZEMPIC) 1 mg/dose (4 mg/3 mL) pen 3 mL 0 03/30/2024 04/29/2024 Sig: Inject 1 mg subcutaneously one time a week. Sent to pharmacy as: semaglutide (OZEMPIC) 1 mg/dose (4 mg/3 mL) pen Class: Normal Route: SUBCUTANEOUS Order: [id number] E-Prescribing Status: Receipt confirmed by pharmacy (03/30/2024 1:51 PM EST) Patient has been identified by name and birthdate. Duration of symptoms: N/A Person calling: self Call patient at: at home Was an appointment scheduled: No Closing statement: Results or non-symptom based questions: Thank you for calling [facility], your call will be returned within the next business day. Abigail Kurtz documented in this encounterMer[facility]03-21-2025 Telephone encounter Note * Telephone Encounter - Abigail Sawyer - 06/02/2024 10:11 AM EDT Neelam is a patient of Frank Fuentes MD today to request medication, not on current list. Please send to [facility]: Disp Refills Start End semaglutide (OZEMPIC) 1 mg/dose (4 mg/3 mL) pen 3 mL 0 03/30/2024 04/29/2024 Sig: Inject 1 mg subcutaneously one time a week. Sent to pharmacy as: semaglutide (OZEMPIC) 1 mg/dose (4 mg/3 mL) pen Class: Normal Route: SUBCUTANEOUS Order: [id number] E-Prescribing Status: Receipt confirmed by pharmacy (03/30/2024 1:51 PM EST) Patient has been identified by name and birthdate. Duration of symptoms: N/A Person calling: self Call patient at: at home Was an appointment scheduled: No Closing statement: Results or non-symptom based questions: Thank you for calling [facility], your call will be returned within the next business day. Abigail Kurtz [facility]03-18-2025 NoteHNO ID: [id number] Author: HAVEN RIOS MA Service: ? Author Type: Powder Shoveler Type: Progress Notes Filed: 05/30/2024 08:39 Note Text: POPULATION HEALTH NAVIGATION OUTREACH Action/May 30, 2024 ACO- HIGH RISK- ATTEMPT 1 Reason for Outreach Care Gap/HCC or Scheduling Wellness Visits Care Gaps due: Medicare Annual Wellness Visit Patient Contacted: Unable or unnecessary to reach patient: Flipped existing appointment Updated appointment notes Navigation Signature: Haven Rios MA May 30, 2024 8:39 [facility]03-18-2025 History of Present illness Narrative* Haven Rios MA - 05/30/2024 8:39 AM EDT POPULATION HEALTH NAVIGATION OUTREACH Action/May 30, 2024 ACO- HIGH RISK- ATTEMPT 1 Reason for Outreach Care Gap/HCC or Scheduling Wellness Visits Care Gaps due: Medicare Annual Wellness Visit Patient Contacted: Unable or unnecessary to reach patient: Flipped existing appointment Updated appointment notes Navigation Signature: Haven Rios MA May 30, 2024 8:39 AM documented in this encounterMer[facility]03-[facility]25 NotePatient Outreach (NETNAV) NEELAM RYAN ([id number]) 1935 F Date Time Provider Department 05/30/24 HAVEN RIOS NETNAV During your visit today, we recorded the following information about you: Haven Rios MA 05/30/2024 8:39 AM Signed POPULATION HEALTH NAVIGATION OUTREACH Action/FYI May 30, 2024 ACO- HIGH RISK- ATTEMPT 1 Reason for Outreach Care Gap/HCC or Scheduling Wellness Visits Care Gaps due: Medicare Annual Wellness Visit Patient Contacted: Unable or unnecessary to reach patient: Flipped existing appointment Updated appointment notes Navigation Signature: Haven Rios MA May 30, 2024 8:39 AM Allergies As of Date: 05/30/2024 Noted Allergy Reaction ACCUPRIL (QUINAPRIL HCL) 12/24/2004 3 - Cough SULFA (SULFONAMIDE ANTIBIOTICS) 12/24/2004 4 - Hives ATORVASTATIN 01/09/2016 17 - Myalgia BENZONATATE 01/09/2016 4 - Hives GABAPENTIN 01/14/2018 14 - Other: See Comments Comments: fatigue SIMVASTATIN 01/09/2016 14 - Other: See Comments Date Reviewed: 03/29/2024 Reviewed by: Trina Moore LPN - Fully Assessed Reason for Visit: Population Health Navigation Outreach [3910] Cmt: ACO- HIGH RISK- ATTEMPT 1 Prescriptions as of 05/30/2024 - folic acid 1 mg tablet Take 2 tablets by mouth once daily. - glipiZIDE (GLUCOTROL) 10 mg tablet Take 1 tablet (10 mg) by mouth two times a day before meals. - potassium chloride (K-TAB) 10 mEq tablet Take 1 tablet by mouth daily with breakfast. - vit C,Q-Px-ciovb-lutein-zeaxan (PRESERVISION AREDS-2) 250-90-40-1 mg Take 1 capsule by mouth two times a day with meals. - furosemide (LASIX) 40 mg tablet Take 1 tablet by mouth once daily. - pantoprazole DR (PROTONIX) 40 mg tablet Take 1 tablet by mouth daily before breakfast. Take on empty stomach, 1/2 hr before meal. - carvedilol (COREG) 25 mg tablet Take 1 tablet by mouth two times a day. - isosorbide mononitrate ER (IMDUR) 60 mg 24 hr tablet Take 1 tablet by mouth once daily. - levothyroxine (LEVOXYL) 75 mcg tablet Take 1 tablet by mouth once daily. - pravastatin (PRAVACHOL) 80 mg tablet Take 1 tablet by mouth daily at bedtime. - amLODIPine (NORVASC) 2.5 mg tablet Take 1 tablet by mouth once daily. - citalopram (CELEXA) 20 mg tablet Take 1 tablet by mouth once daily. - aspirin 81 mg cap Take 81 mg by mouth once daily. - mecobalamin, vitamin B12, 1,000 mcg chew Take 1 tablet by mouth once daily. - acetaminophen (TYLENOL) 500 mg tablet Take 2 tablets by mouth every 8 hours as needed for pain. - blood sugar diagnostic (BLOOD GLUCOSE TEST) test strip Prodigy Glucometer Test blood sugar(s) 1 time daily. Dx: Type 2 DM - Controlled E11.9 Insulin: No - nitroglycerin sublingual (NITROQUICK) 0.4 mg SL tablet Dissolve 1 tablet under the tongue as needed. DISSOLVE ONE(1) TABLET UNDER THE TOUNGUE NEEDED FOR CHEST PAIN,EVERY 5 MIN X3 - Lancets lancets Test blood sugar(s) 1 times daily. Dx: Type 2 DM - Controlled E11.9 Insulin: No - COMPOUNDED PRESCRIPTION Prodigy Glucometer test strips Test once daily. Dx: E11.9 Insulin: No - Cholecalciferol, Vitamin D3, 1,000 unit cap Take 1 capsule by mouth once daily. - COMPOUNDED PRESCRIPTION Lancets Test once daily. Dx: E11.9 Insulin: No - Cranberry 500 mg cap Take 1 tablet by mouth once daily. - XALATAN 0.005 % EYE DROPS one drop each eye at bede Problem List As Of Date 05/30/2024 Noted Resolved Mixed hyperlipidemia [E78.2] 01/07/2005 Type 2 diabetes mellitus with stage 3b chronic *01/07/2005 Hypothyroidism [E03.9] 01/07/2005 Anemia, unspecified [D64.9] CONSTIPATION NOS [K59.00] 01/23/2005 ESOPHAGEAL REFLUX [K21.9] 01/23/2005 Acute gastritis without mention of hemorrhage [*01/30/2005 12/30/2016 SPINAL STENOSIS-LUMBAR [M48.061] 02/24/2005 SCIATICA [M54.30] 02/24/2005 Calculus of gallbladder with acute cholecystiti*02/24/2005 12/30/2016 Unspecified cardiovascular disease [I25.10] 10/05/2005 12/30/2016 Essential hypertension [I10] Coronary atherosclerosis [I25.10] 12/30/2016 Unspecified deformity of ankle and foot, acquir*02/13/2009 12/30/2016 DM Neuro Manif Type II, Uncontrolled [E11.49] 02/13/2009 08/22/2009 Hallux Valgus (Acquired) [M20.10] 02/13/2009 Other Hammer Toe (Acquired) [M20.40] 02/13/2009 Postsurgical Percutaneous Transluminal Coronary*07/25/2009 Other acquired deformity of toe [M20.5X9] 05/28/2010 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] 06/03/2010 10/14/2017 ASHD (arteriosclerotic heart disease) [I25.10] 03/10/2011 UTI (lower urinary tract infection) [N39.0] 08/13/2011 12/30/2016 Urinary retention [R33.9] 08/13/2011 Pericardial tamponade [I31.4] 12/16/2011 Presence of drug coated stent in posterior desc*12/16/2011 Contusion of left middle finger with damage to *05/09/2013 12/30/2016 Nail fungus [B35.1] 05/23/2013 Lumbar stenosis [M48.061] 09/04/2013 Medicare annual wellness visit, sub (more content not included)...[facility]02-17-20[facility] Telephone encounter Note* Telephone Encounter - Va Goodman RN - 05/01/2024 9:26 AM EST The patient has been identified by name and date of : Yes Caregiver verified no other encounters exist for this prescription request: Yes Caregiver confirmed with patient/requestor that no other refills are due, in the near future, with this provider at this time: Yes The last office visit in the department: 03/29/2024 Does the patient have a future office visit with this provider/department: Yes 06/27/2024 Requested Prescriptions Pending Prescriptions Disp Refills folic acid 1 mg tablet 180 tablet 1 Sig: Take 2 tablets by mouth once daily. glipiZIDE (GLUCOTROL) 10 mg tablet 180 tablet 1 Sig: Take 1 tablet (10 mg) by mouth two times a day before meals. potassium chloride (K-TAB) 10 mEq tablet 90 tablet 1 Sig: Take 1 tablet by mouth daily with breakfast. Va Goodman RN May 01, 2024 10:19 AM [facility]02-17-2025 Miscellaneous Notes* Telephone Encounter - Va Goodman RN - 05/01/2024 9:26 AM EST The patient has been identified by name and date of : Yes Caregiver verified no other encounters exist for this prescription request: Yes Caregiver confirmed with patient/requestor that no other refills are due, in the near future, with this provider at this time: Yes The last office visit in the department: 03/29/2024 Does the patient have a future office visit with this provider/department: Yes 06/27/2024 Requested Prescriptions Pending Prescriptions Disp Refills folic acid 1 mg tablet 180 tablet 1 Sig: Take 2 tablets by mouth once daily. glipiZIDE (GLUCOTROL) 10 mg tablet 180 tablet 1 Sig: Take 1 tablet (10 mg) by mouth two times a day before meals. potassium chloride (K-TAB) 10 mEq tablet 90 tablet 1 Sig: Take 1 tablet by mouth daily with breakfast. Va Goodman RN May 01, 2024 10:19 AM documented in this encounterMer[facility]01-[facility] Telephone encounter Note * Telephone Encounter - Frank Fuentes MD - 03/30/2024 2:54 PM EST Reviewed. [facility]01-16-2025 Miscellaneous Notes* Telephone Encounter - Frank Fuentes MD - 03/30/2024 2:54 PM EST Reviewed. * Telephone Encounter - Marisol Holm RN - 03/30/2024 2:06 PM EST Pt called and is notified of providers results and instructions. Pt voices understanding. Marisol Holm RN * Telephone Encounter - Frank Fuentes MD - 03/30/2024 1:52 PM EST Rx sent. In addition to increasing her Ozempic, I would recommend she stop her Januvia. These 2 medications are typically not given together and taking both can increase side effects. I overlooked this when I first started her on the Ozempic. I would still have her call in in 2-3 weeks with update on sugar readings. * Telephone Encounter - Joceline Varela MA - 03/30/2024 1:36 PM EST Pt notified. Uses [facility]. Joceline Varela MA * Telephone Encounter - Frank Fuentes MD - 03/30/2024 12:25 PM EST Blood work shows stable uncontrolled diabetes with A1c of 8.3. recommend increasing ozempic to 1 mgweekly dosage. Patient to check fasting sugars and call with updated readings in 2-3 weeks. Will send new rx to requested pharmacy if patient agreeable. Other labs stable/unremarkable. documented in this encounterMer[facility]01-[facility]25 Telephone encounter Note * Telephone Encounter - Marisol Holm RN - 03/30/2024 2:06 PM EST Pt called and is notified of providers results and instructions. Pt voices understanding. Marisol Holm RN [facility]01-16-2025 Telephone encounter Note* Telephone Encounter - Frank Fuentes MD - 03/30/2024 1:52 PM EST Rx sent. In addition to increasing her Ozempic, I would recommend she stop her Januvia. These 2 medications are typically not given together and taking both can increase side effects. I overlooked this when I first started her on the Ozempic. I would still have her call in in 2-3 weeks with update on sugar readings. [facility]01-16-2025 Telephone encounter Note* Telephone Encounter - Joceline Varela MA - 03/30/2024 1:36 PM EST Pt notified. Uses [facility]. Joceline Varela MA [facility]01-16-2025 Telephone encounter Note* Telephone Encounter - Frank Fuentes MD - 03/30/2024 12:25 PM EST Blood work shows stable uncontrolled diabetes with A1c of 8.3. recommend increasing ozempic to 1 mgweekly dosage. Patient to check fasting sugars and call with updated readings in 2-3 weeks. Will send new rx to requested pharmacy if patient agreeable. Other labs stable/unremarkable. [facility]01-15-2025 NoteHNO ID: [id number] Author: FRANK FUENTES MD Service: ? Author Type: Physician Type: Progress Notes Filed: 03/29/2024 13:12 Note Text: Chief Complaint Patient presents with: Follow Up: 3 month HPI Neelam Ryan is a 88 year old female who presents here today for 3 month follow up. Patient has been in good health without recent hospitalizations, ER visits, or falls. No concerns today. DIABETES MELLITUS: Ms. Ryan was last seen 3 months ago. Started on Ozempic at last OV. Since our last visit she denies excessive thirst or increased frequency of urination, numbness, tingling or pain in extremities, new or unusual visual symptoms, and low sugar/hypoglycemic reactions. Follows a diabetic diet some of the time. She is compliant with medication(s) and is tolerating med(s) without any side effects. She reports checking her glucose on a once a day schedule with sugars in the fasting 120-160 range typically. Patient's last HgA1C was Hemoglobin A1C (%) Date Value 12/28/2023 8.3 09/22/2023 8.8 12/12/2020 7.8 06/11/2020 8.1 ) Last Ophthalmology exam was within the past 12 months Last Podiatry exam was within the past 3 months Depression symptoms well controlled on Celexa. Denies SI/HI. BP well controlled on current regimen today. Not monitoring on a regular basis. Denies HTN symptoms. F/u appointment with cardiology scheduled on 04/27. Asymptomatic on medical management. Past medical history, appointments, medications, allergies reviewed. Previous Medical History PAST MEDICAL HISTORY Diagnosis Date Basal cell carcinoma Dr. Lambert Cholecystitis, unspecified Chronic kidney disease (CKD), stage IV (severe) (HCC) Dr. Montgomery Coronary atherosclerosis of unspecified type of vessel, tulalip or graft Dr. Issac Depression Hammertoes of both feet Multinodular goiter 05/21/2016 Osteoarthritis Other and unspecified anemias Pure hypercholesterolemia Sciatica Swelling of lower extremity Type II or unspecified type diabetes mellitus without mention of complication, not stated as uncontrolled Podiatry-Dr. Mcgee Unspecified essential hypertension Unspecified hypothyroidism Previous Surgical History PAST SURGICAL HISTORY Procedure Laterality Date COLONOSCOPY FLX DX W/COLLJ SPEC WHEN PFRMD 01/30/2005 Colonoscopy COLONOSCOPY FLX DX W/COLLJ SPEC WHEN PFRMD 08/05/2015 Colonoscopy ESOPHAGOGASTRODUODENOSCOPY TRANSORAL DIAGNOSTIC 01/30/2005 EGD HEART CATHETERIZATION 09/2018 angiopasty of circumflex, 75% stenosis. LAD 80%. LAPAROSCOPY SURG CHOLECYSTECTOMY 12/02/2005 Cholecystectomy, lap PAST SURGICAL HISTORY OF hernia PAST SURGICAL HISTORY OF carpal tunnel both hands PAST SURGICAL HISTORY OF fingers different times PAST SURGICAL HISTORY OF trigger finger PAST SURGICAL HISTORY OF 06/21/2006 heart cath with stent placement [facility] PAST SURGICAL HISTORY OF 04/24/2008 vaginal hysterectomy, bladder suspension, rectocele PAST SURGICAL HISTORY OF 11/20/11 cardiac cath; percutaneous transluminal coronary angioplasty with stent @ [facility] PAST SURGICAL HISTORY OF left wrist surgery TOTAL THYROID LOBECTOMY UNI W/WO ISTHMUSECTOMY Right 05/21/2016 TRANSCATH STENT INIT VESSEL,PERCUT 08/18 Transcath stent init vessel percut LAD [facility] Family History FAMILY HISTORY Problem Relation Age of Onset Diabetes Mother CAD, ANGIOPLASTY Diabetes Father DC other (DC) Brother other (OHS) Sister other (DC) Brother Heart Sister diabetic Heart Sister Heart Sister diabetic Heart Sister diabetic Patient Allergies ALLERGIES Allergen Reactions Accupril [Quinapril* Cough Sulfa (Sulfonamide * Hives Atorvastatin Myalgia Benzonatate Hives Gabapentin Other: See Comments fatigue Simvastatin Other: See Comments Current Medications Current Outpatient Medications on File Prior to Visit Medication Sig OZEMPIC 0.25 mg or 0.5 mg (2 mg/3 mL) pen INJECT 0.25 MG SUBCUTANEOUSLY ONCE A WEEK FOR A MONTH, THEN INJECT 0.5MG ONCE A WEEK THEREAFTER vit C,I-Aa-pcupa-lutein-zeaxan (PRESERVISION AREDS-2) 250-90-40-1 mg Take 1 capsule by mouth two times a day with meals. furosemide (LASIX) 40 mg tablet Take 1 tablet by mouth once daily. pantoprazole DR (PROTONIX) 40 mg tablet Take 1 tablet by mouth daily before breakfast. Take on empty stomach, 1/2 hr before meal. SITagliptin phosphate (JANUVIA) 50 mg tablet Take 1 tablet by mouth once daily. carvedilol (COREG) 25 mg tablet Take 1 tablet by mouth two times a day. isosorbide mononitrate ER (IMDUR) 60 mg 24 hr tablet Take 1 tablet by mouth once daily. levothyroxine (LEVOXYL) 75 mcg tablet Take 1 tablet by mouth once daily. pravastatin (PRAVACHOL) 80 mg tablet Take 1 tablet by mouth daily at bedtime. amLODIPine (NORVASC) 2.5 mg tablet Take 1 tablet by mouth once daily. citalopram (CELEXA) 20 mg tablet Take 1 tablet by mouth once daily. aspirin 81 mg ca (more content not included)...[facility] 03-29-2024 History of Present illness Narrative* Frank Fuentes MD - 03/29/2024 12:40 PM EST Chief Complaint Patient presents with: Follow Up: 3 month HPI Neelam Ryan is a 88 year old female who presents here today for 3 month follow up. Patient has been in good health without recent hospitalizations, ER visits, or falls. No concerns today. DIABETES MELLITUS: Ms. Ryan was last seen 3 months ago. Started on Ozempic at last OV. Since our last visit she denies excessive thirst or increased frequency of urination, numbness, tingling or pain in extremities, new or unusual visual symptoms, and low sugar/hypoglycemic reactions. Follows adiabetic diet some of the time. She is compliant with medication(s) and is tolerating med(s) without any side effects. She reports checking her glucose on a once a day schedule with sugars in the fasting 120-160 range typically. Patient's last HgA1C was Hemoglobin A1C (%) Date Value 12/28/2023 8.3 09/22/2023 8.8 12/12/2020 7.8 06/11/2020 8.1 ) Last Ophthalmology exam was within the past 12 months Last Podiatry exam was within the past 3 months Depression symptoms well controlled on Celexa. Denies SI/HI. BP well controlled on current regimen today. Not monitoring on a regular basis. Denies HTN symptoms. F/u appointment with cardiology scheduled on 04/27. Asymptomatic on medical management. Past medical history, appointments, medications, allergies reviewed. Previous Medical History PAST MEDICAL HISTORY Diagnosis Date Basal cell carcinoma Dr. Lambert Cholecystitis, unspecified Chronic kidney disease (CKD), stage IV (severe) (HCC) Dr. Montgomery Coronary atherosclerosis of unspecified type of vessel, tulalip or graft Dr. Davenport Depression Hammertoes of both feet Multinodular goiter 05/21/2016 Osteoarthritis Other and unspecified anemias Pure hypercholesterolemia Sciatica Swelling of lower extremity Type II or unspecified type diabetes mellitus without mention of complication, not stated as uncontrolled Podiatry-Dr. Mcgee Unspecified essential hypertension Unspecified hypothyroidism Previous Surgical History PAST SURGICAL HISTORY Procedure Laterality Date COLONOSCOPY FLX DX W/COLLJ SPEC WHEN PFRMD 01/30/2005 Colonoscopy COLONOSCOPY FLX DX W/COLLJ SPEC WHEN PFRMD 08/05/2015 Colonoscopy ESOPHAGOGASTRODUODENOSCOPY TRANSORAL DIAGNOSTIC 01/30/2005 EGD HEART CATHETERIZATION 09/2018 angiopasty of circumflex, 75% stenosis. LAD 80%. LAPAROSCOPY SURG CHOLECYSTECTOMY 12/02/2005 Cholecystectomy, lap PAST SURGICAL HISTORY OF hernia PAST SURGICAL HISTORY OF carpal tunnel both hands PAST SURGICAL HISTORY OF fingers different times PAST SURGICAL HISTORY OF trigger finger PAST SURGICAL HISTORY OF 06/21/2006 heart cath with stent placement [facility] PAST SURGICAL HISTORY OF 04/24/2008 vaginal hysterectomy, bladder suspension, rectocele PAST SURGICAL HISTORY OF 11/20/11 cardiac cath; percutaneous transluminal coronary angioplasty with stent @ [facility] PAST SURGICAL HISTORY OF left wrist surgery TOTAL THYROID LOBECTOMY UNI W/WO ISTHMUSECTOMY Right 05/21/2016 TRANSCATH STENT INIT VESSEL,PERCUT 08/18 Transcath stent init vessel percut LAD [facility] Family History FAMILY HISTORY Problem Relation Age of Onset Diabetes Mother CAD, ANGIOPLASTY Diabetes Father DC other (DC) Brother other (OHS) Sister other (DC) Brother Heart Sister diabetic Heart Sister Heart Sister diabetic Heart Sister diabetic Patient Allergies ALLERGIES Allergen Reactions Accupril [Quinapril* Cough Sulfa (Sulfonamide * Hives Atorvastatin Myalgia Benzonatate Hives Gabapentin Other: See Comments fatigue Simvastatin Other: See Comments Current Medications Current Outpatient Medications on File Prior to Visit Medication Sig OZEMPIC 0.25 mg or 0.5 mg (2 mg/3 mL) pen INJECT 0.25 MG SUBCUTANEOUSLY ONCE A WEEK FOR A MONTH, THEN INJECT 0.5MG ONCE A WEEK THEREAFTER vit C,P-Eg-vdlln-lutein-zeaxan (PRESERVISION AREDS-2) 250-90-40-1 mg Take 1 capsule by mouth two times a day with meals. furosemide (LASIX) 40 mg tablet Take 1 tablet by mouth once daily. pantoprazole DR (PROTONIX) 40 mg tablet Take 1 tablet by mouth daily before breakfast. Take on empty stomach, 1/2 hr before meal. SITagliptin phosphate (JANUVIA) 50 mg tablet Take 1 tablet by mouth once daily. carvedilol (COREG) 25 mg tablet Take 1 tablet by mouth two times a day. isosorbide mononitrate ER (IMDUR) 60 mg 24 hr tablet Take 1 tablet by mouth once daily. levothyroxine (LEVOXYL) 75 mcg tablet Take 1 tablet by mouth once daily. pravastatin (PRAVACHOL) 80 mg tablet Take 1 tablet by mouth daily at bedtime. amLODIPine (NORVASC) 2.5 mg tablet Take 1 tablet by mouth once daily. citalopram (CELEXA) 20 mg tablet Take 1 tablet by mouth once daily. aspirin 81 mg cap Take 81 mg by mouth once daily. potassium chloride (K-TAB) 10 mEq tablet Take 1 tablet by mouth daily with breakfast. folic acid 1 mg tablet Take 2 tablets by mouth once daily. mecobalamin, vitamin B12, 1,000 mcg chew Take 1 tablet by mouth once daily. acetaminophen (TYLENOL) 500 mg tablet Take 2 tablets by mouth every 8 hours as needed for pain. blood sugar diagnostic (BLOOD GLUCOSE TEST) test strip Prodigy Glucometer Test blood sugar(s) 1 time daily. Dx: Type 2 DM - Controlled E11.9 Insulin: No nitroglycerin sublingual (NITROQUICK) 0.4 mg SL tablet Dissolve 1 tablet under the tongue as needed. DISSOLVE ONE(1) TABLET UNDER THE TOUNGUE NEEDED FOR CHEST PAIN,EVERY 5 MIN X3 Lancets lancets Test blood sugar(s) 1 times daily. Dx: Type 2 DM - Controlled E11.9 Insulin: No COMPOUNDED PRESCRIPTION Prodigy Glucometer test strips Test once daily. Dx: E11.9 Insulin: No Cholecalciferol, Vitamin D3, 1,000 unit cap Take 1 capsule by mouth once daily. COMPOUNDED PRESCRIPTION Lancets Test once daily. Dx: E11.9 Insulin: No Cranberry 500 mg cap Take 1 tablet by mouth once daily. XALATAN 0.005 % EYE DROPS one drop each eye at bedtme glipiZIDE (GLUCOTROL) 10 mg tablet Take 1 tablet (10 mg) by mouth two times a day before meals. No current facility-administered medications on file prior to visit. Social History Social History Tobacco Use Smoking status: Never Smokeless tobacco: Never Vaping Use Vaping status: Never Used Substance Use Topics Alcohol use: No Drug use: No Review of Symptoms REVIEW OF SYSTEMS GENERAL: No weight loss, malaise or fevers RESPIRATORY: Negative for cough, hemoptysis, wheezing, COPD, dyspnea or shortness of breath CARDIOVASCULAR: Negative for chest pain, leg swelling, hypertension, CHF or palpitations GI: No nausea, vomiting, or diarrhea SKIN: Negative for lesions, rash, and itching EXAM: BP 106/62 Pulse 80 Resp 16 Wt 67.9 kg (149 lb 9.6 oz) SpO2 99% BMI 30.22 kg/m General Appearance: Well appearing, alert, in no acute distress, well-hydrated, well nourished.. Skin: Skin color, texture, turgor normal, no suspicious rashes or lesions. Lungs: Lungs clear to auscultation. No wheezing, rhonchi, rales.. Heart: RRR without murmur, gallop, or rubs. No ectopy. Abdomen: Normal abdominal exam, Abdomen soft, non-tender. Bowel sounds normal. No masses, organomegaly. Extremities: No deformities, edema, skin discoloration, clubbing or cyanosis. Good capillary refill. . Health Maintenance List Anxiety Screening Never done Shingrix Vaccine(1 of 2) Never done Advance Directive Discussion Never done HbA1C due on 03/29/2024 RSV Vaccine(1 - 1-dose 75+ series) due on 09/21/2024 Diabetic Foot Exam due on 06/22/2024 Urine Albumin:Creatinine Ratio due on 06/23/2024 LDL Cholesterol due on 06/23/2024 Dilated Retinal Exam due on 06/24/2024 DTaP,Tdap,Td Vaccine(6 - Td or Tdap) due on 06/22/2032 Bone Density Screening Completed Influenza Vaccine Completed Covid-19 Vaccine Completed Pneumococcal Vaccine: 50+ Completed Data reviewed Latest Ref Rng 12/28/2023 Protein, Total 6.3 - 8.0 g/dL 7.2 Albumin 3.9 - 4.9 g/dL 4.1 Calcium 8.5 - 10.2 mg/dL 9.6 Bilirubin, Total 0.2 - 1.3 mg/dL 0.4 Alkaline Phosphatase 34 - 123 U/L 52 AST 13 - 35 U/L 18 ALT 7 - 38 U/L 13 Glucose 74 - 99 mg/dL 220 (H) BUN 7 - 21 mg/dL 60 (H) Creatinine 0.58 - 0.96 mg/dL 1.58 (H) Sodium 136 - 144 mmol/L 134 (L) Potassium 3.7 - 5.1 mmol/L 4.5 Chloride 98 - 107 mmol/L 99 CO2 22 - 30 mmol/L 21 (L) Anion Gap 8 - 15 mmol/L 14 eGFR >=60 mL/min/1.73m 32 (L) Hemoglobin A1C 4.3 - 5.6 % 8.3 (H) Estimated Average Glucose mg/dL 192 Legend: (H) High (L) Low ASSESSMENT/PLAN: 1. Type 2 diabetes mellitus with stage 3b chronic kidney disease, without long- term current use of insulin (HCC) - ICD9: 250.40, 585.3, ICD10: E11.22, N18.32 (primary diagnosis) - Control undetermined, due for labs - Continue current medications - Statin prescribed - pravastatin - Blood glucose monitoring on a once daily schedule - Counseled on healthy diet and regular exercise - Discussed need for and benefit of weight loss. BMI 30.22 kg/(m^2) - Discussed diabetic education issues of diabetes complications and monitoring required, hypoglycemic/hyperglycemic symptoms, and medication-specific side effects and monitoring - Follow up in 3 months, sooner should any other issues arise. - HEMOGLOBIN A1C - COMPREHENSIVE METABOLIC PANEL 2. Essential hypertension - ICD9: 401.9, ICD10: I10 - Controlled - Continue current medications - Recommend home blood pressure monitoring, to bring results to next visit - Encouraged sodium restriction, DASH or Mediterranean diet - Recommend regular aerobic exercise 3. Mixed hyperlipidemia - ICD9: 272.2, ICD10: E78.2 - Controlled - Continue current medications - Counseled on healthy diet and regular exercise 4. Acquired hypothyroidism - ICD9: 244.9, ICD10: E03.9 - Instructed patient on importance of taking on an empty stomach either first thing in the morning or at bedtime. - continue current dose of Synthroid 5. ASHD (arteriosclerotic heart disease) - ICD9: 414.00, ICD10: I25.10 Asymptomatic on medical management. F/u with cardiology as scheduled. No changes to regimen. 6. Stage 3b chronic kidney disease (HCC) - ICD9: 585.3, ICD10: N18.32 Recheck CMP. - Counseled on avoiding NSAIDs, adequate hydration - Counseled on low sodium diet - Follow up with kidney medicine 7. Recurrent major depressive disorder, in full remission (HCC) - ICD9: 296.36, ICD10: F33.42 Controlled on Celexa. Frank Fuentes MD [facility] Instructions* Patient Instructions* Karolina Mcgee - 03/21/2024 1:19 PM EST Diabetes Foot Care Instructions When you have diabetes, proper foot care is very important. Poor foot care may lead to amputation of a foot or leg. As a person with diabetes, you are more vulnerable to foot problems, because diabetes can damage your nerves and reduce blood flow to your feet. Here are some diabetes foot care tips to follow: Wash and Dry Your Feet Daily Use mild soaps Use warm water Pat your skin dry; do not rub. Thoroughly dry your feet. After washing, use lotion on your feet to prevent cracking. Do not put lotion between your toes. Examine Your Feet Each Day Check the tops and bottoms of your feet. Have someone else look at your feet if you cannot see them. Check for dry, cracked skin. Look for blisters, cuts, scratches, or other sores. Check for redness, increased warmth, or tenderness when touching any area of your feet. Check for ingrown toenails, corns, and calluses. If you get a blister or sore from your shoes, do not pop it. Apply a bandage and wear a differentpair of shoes. Take Care of Your Toenails Cut toenails after bathing, when they are soft. Cut toenails straight across and smooth with a nail file. Avoid cutting into the corners of toes. Do not cut cuticles. If you have neuropathy (or decreased sensation in your feet) a finish saw operator should always cut your toenails. Be Careful When Exercising Walk and exercise in comfortable shoes. Do not exercise when you have open sores on your feet. Protect Your Feet With Shoes and Socks Never go barefoot. Always protect your feet by wearing shoes or hard-soled slippers or footwear. Avoid shoes with high heels and pointed toes. Avoid shoes that expose your toes or heels (such as open-toed shoes or sandals). These types of shoes increase your risk for injury and potential infections. Try on new footwear with the type of socks you usually wear. Do not wear new shoes for more than an hour at a time. Change your socks daily. Look and feel inside your shoes before putting them on to make sure there are no foreign objects orrough areas. Avoid tight socks. Wear natural-fiber socks (cotton, wool, or a cotton-wool blend). Wear special shoes if your health care provider recommends them. Wear shoes/boots that will protect your feet from various weather conditions (cold, moisture, etc.). Make sure your shoes fit properly. If you have neuropathy (nerve damage), you may not notice that your shoes are too tight. Perform the footwear test described below. Footwear Test Use this simple test to see if your shoes fit correctly: Stand on a piece of paper. (Make sure you are standing and not sitting, because your foot changes shape when you stand.) Trace the outline of your foot. Trace the outline of your shoe. Compare the tracings: Is the shoe too narrow? Is your foot crammed into the shoe? The shoe should be at least 1/2 inch longer than your longest toe and as wide as your foot. Proper Shoe Choices The following types of shoes are best for people with diabetes Closed toes and heels Leather uppers without a seam inside At least 1/2 inch extra space at the end of your longest toe Inside of shoe should be soft with no rough areas Outer sole should be made of stiff material Shoes should be at least as wide as your feet Tips for Foot Care in Diabetes Don't wait to treat a minor foot problem if you have diabetes. Follow your health care provider's guidelines and first aid guidelines. Report foot injuries and infections to your health care provider immediately. Check water temperature with your elbow, not your foot. Do not use a heating pad on your feet. Do not cross your legs. Do not self-treat your corns, calluses, or other foot problems. Go to your health care provider or finish saw operator to treat these conditions. [facility]25 NoteHNO ID: [id number] Author: KAROLINA MCGEE, ? Service: ? Author Type: Physician Type: Progress Notes Filed: 03/21/2024 13:20 Note Text: Last saw pcp: 12/28/23 Subjective: Patient presents to clinic c/o painful toenails. They state that the nails are especially painful with shoe gear and pressure. Patient states that nails 1-5 b/l are painful. Patient admits to being diabetic. No other pedal complaints at this time. Patient states no change in medications or medical history since last visit. Objective: Patient presents to clinic ambulating in diabetic shoes Vasc: DP and PT pulses are palpable bilateral. CFT is less than 5 seconds bilateral. Skin temperature is warm to cool proximal to distal bilateral. There is no edema or varicosities noted. Neuro: Protective sensation is intact to the foot and toes when tested with the 5.07 SWM bilateral. Vibratory sensation is decreased at the hallux IPJ bilateral. The hallux is downgoing bilateral. Derm: Nails 1-5 b/l are painful, discolored-yellow, thick, crumbly, dystrophic and with subungal debris. Skin is of normal turgor, texture and hair growth is present bilateral. There are no hyperkeratosis, ulcerations, scars, verruca or other lesions noted. Ortho: Muscle strength is 5/5 for all pedal groups tested. Ankle joint DF is decreased with the knee extended with no pain or crepitus noted. 1st MPJ ROM is decreased bilateral. Hallux valgus deformity is noted b/l. Dorsal medial contracture of right 2nd toe Assessment: (B35.1) Onychomycosis (primary encounter diagnosis) (M79.674) Pain in toe of right foot (M79.675) Pain in toe of left foot (E11.9) Type 2 diabetes mellitus without complication, without long-term current use of insulin ([facility]) (M20.41) Hammer toe of right foot Plan: Patient was seen and evaluated. Nails 1-5 bilateral were debrided in length and thickness. Small bleed to left hallux. Band aide applied. Discussed hammertoe of right 2nd toe. Continue with wider shoes and or gel padding. Other options discussed include surgical correction of hammertoe/bunion vs 2nd toe amputation. Patient was instructed on the continued importance of diabetic foot care along with proper diet and keeping their blood sugar under control to prevent complications. Stressed the importance of avoiding barefoot walking, wearing good shoes and inspection of feet. Patient is to RTC in 3-4 months. Karolina Mcgee [facility]01[facility] History of Present illness Narrative* Karolina Mcgee - 03/21/2024 1:17 PM EST Last saw pcp: 12/28/23 Subjective: Patient presents to clinic c/o painful toenails. They state that the nails are especially painful with shoe gear and pressure. Patient states that nails 1-5 b/l are painful. Patient admits to being diabetic. No other pedal complaints at this time. Patient states no change in medications or medical history since last visit. Objective: Patient presents to clinic ambulating in diabetic shoes Vasc: DP and PT pulses are palpable bilateral. CFT is less than 5 seconds bilateral. Skin temperature is warm to cool proximal to distal bilateral. There is no edema or varicosities noted. Neuro: Protective sensation is intact to the foot and toes when tested with the 5.07 SWM bilateral.Vibratory sensation is decreased at the hallux IPJ bilateral. The hallux is downgoing bilateral. Derm: Nails 1-5 b/l are painful, discolored-yellow, thick, crumbly, dystrophic and with subungal debris. Skin is of normal turgor, texture and hair growth is present bilateral. There are no hyperkeratosis, ulcerations, scars, verruca or other lesions noted. Ortho: Muscle strength is 5/5 for all pedal groups tested. Ankle joint DF is decreased with the knee extended with no pain or crepitus noted. 1st MPJ ROM is decreased bilateral. Hallux valgus deformity is noted b/l. Dorsal medial contracture of right 2nd toe Assessment: (B35.1) Onychomycosis (primary encounter diagnosis) (M79.674) Pain in toe of right foot (M79.675) Pain in toe of left foot (E11.9) Type 2 diabetes mellitus without complication, without long-term current use of insulin ([facility]) (M20.41) Hammer toe of right foot Plan: Patient was seen and evaluated. Nails 1-5 bilateral were debrided in length and thickness. Small bleed to left hallux. Band aide applied. Discussed hammertoe of right 2nd toe. Continue with wider shoes and or gel padding. Other options discussed include surgical correction of hammertoe/bunion vs 2nd toe amputation. Patient was instructed on the continued importance of diabetic foot care along with proper diet andkeeping their blood sugar under control to prevent complications. Stressed the importance of avoiding barefoot walking, wearing good shoes and inspection of feet. Patient is to RTC in 3-4 months. Karolina Mcgee DPM * Maebl Hamlin LPN - 03/21/2024 1:04 PM EST [facility] ROOMING INTAKE FLOWSHEET DATA Patient presents with: Left Foot - Established Patient, Follow Up, Diabetic Foot Care Right Foot - Established Patient, Follow Up, Diabetic Foot Care Mabel Hamlin LPN documented [facility] encounter[facility]25 NoteHNO ID: [id number] Author: MABEL HAMLIN LPN Service: ? Author Type: LICENSED NURSE Type: Progress Notes Filed: 03/21/2024 13:20 Note Text: [facility] ROOMING INTAKE FLOWSHEET DATA Patient presents with: Left Foot - Established Patient, Follow Up, Diabetic Foot Care Right Foot - Established Patient, Follow Up, Diabetic Foot Care Mabel Hamlin [facility]12-30-2024 Telephone encounter Note* Telephone Encounter - Pippa Khalil - 03/13/2024 11:39 AM EST Prescription Refill Information The patient has been identified by name and date of : Yes Caregiver verified no other encounters exist for this prescription request: Yes Caregiver confirmed with patient/requestor that no other refills are due, in the near future, with this provider at this time: Yes The last office visit in the department: 12-28-23 Does the patient have a future office visit with this provider/department: Yes Requested Prescriptions Pending Prescriptions Disp Refills furosemide (LASIX) 40 mg tablet 90 tablet 1 Sig: Take 1 tablet by mouth once daily. Pippa Kurtz March 13, 2024 11:40 AM [facility]12-30-2024 Miscellaneous Notes* Telephone Encounter - Pippa Khalil - 03/13/2024 11:39 AM EST Prescription Refill Information The patient has been identified by name and date of : Yes Caregiver verified no other encounters exist for this prescription request: Yes Caregiver confirmed with patient/requestor that no other refills are due, in the near future, with this provider at this time: Yes The last office visit in the department: 12-28-23 Does the patient have a future office visit with this provider/department: Yes Requested Prescriptions Pending Prescriptions Disp Refills furosemide (LASIX) 40 mg tablet 90 tablet 1 Sig: Take 1 tablet by mouth once daily. Pippa Kurtz March 13, 2024 11:40 AM documented in this encounterMer[facility]12-20-2024 Telephone encounter Note * Telephone Encounter - Priyanka Hobbs - 03/03/2024 9:54 AM EST Prescription Refill Information The patient has been identified by name and date of : Yes Caregiver verified no other encounters exist for this prescription request: Yes Caregiver confirmed with patient/requestor that no other refills are due, in the near future, with this provider at this time: Yes The last office visit in the department: 12-28-23 Does the patient have a future office visit with this provider/department: Yes Requested Prescriptions Pending Prescriptions Disp Refills furosemide (LASIX) 40 mg tablet 90 tablet 1 Sig: Take 1 tablet by mouth once daily. pantoprazole DR (PROTONIX) 40 mg tablet 90 tablet 1 Sig: Take 1 tablet by mouth daily before breakfast. Take on empty stomach, 1/2 hr before meal. SITagliptin phosphate (JANUVIA) 50 mg tablet 90 tablet 1 Sig: Take 1 tablet by mouth once daily. Priyanka Kurtz March 03, 2024 9:55 AM [facility] Work Phone: [phone] Miscellaneous Notes* Telephone Encounter - Priyanka Hobbs - 03/03/2024 9:54 AM EST Prescription Refill Information The patient has been identified by name and date of : Yes Caregiver verified no other encounters exist for this prescription request: Yes Caregiver confirmed with patient/requestor that no other refills are due, in the near future, with this provider at this time: Yes The last office visit in the department: 12-28-23 Does the patient have a future office visit with this provider/department: Yes Requested Prescriptions Pending Prescriptions Disp Refills furosemide (LASIX) 40 mg tablet 90 tablet 1 Sig: Take 1 tablet by mouth once daily. pantoprazole DR (PROTONIX) 40 mg tablet 90 tablet 1 Sig: Take 1 tablet by mouth daily before breakfast. Take on empty stomach, 1/2 hr before meal. SITagliptin phosphate (JANUVIA) 50 mg tablet 90 tablet 1 Sig: Take 1 tablet by mouth once daily. Priyanka Kurtz March 03, 2024 9:55 AM documented in this encounterMer[facility]12-09-2024 Telephone encounter Note * Telephone Encounter - Sarah Thompson - 02/21/2024 1:10 PM EST Patient has been identified by name and date of : Yes, Provider Dr. Fuentes Patient phones for refill(s): Requested Prescriptions Pending Prescriptions Disp Refills carvedilol (COREG) 25 mg tablet 180 tablet 1 Sig: Take 1 tablet by mouth two times a day. Date of last office visit in primary care: 12/28/2023 Date of next office visit in primary care: 03/29/2024 Please advise. Thank you. Sarah Thompson. [facility]12-09-[facility]24 Miscellaneous Notes* Telephone Encounter - Sarah Thompson - 02/21/2024 1:10 PM EST Patient has been identified by name and date of : Yes, Provider Dr. Fuentes Patient phones for refill(s): Requested Prescriptions Pending Prescriptions Disp Refills carvedilol (COREG) 25 mg tablet 180 tablet 1 Sig: Take 1 tablet by mouth two times a day. Date of last office visit in primary care: 12/28/2023 Date of next office visit in primary care: 03/29/2024 Please advise. Thank you. Sarah Thompson. documented in this encounterMer[facility]12-03-2024 Telephone encounter Note * Telephone Encounter - Pippa Khalil - 02/15/2024 1:47 PM EST Prescription Refill Information The patient has been identified by name and date of : Yes Caregiver verified no other encounters exist for this prescription request: Yes Caregiver confirmed with patient/requestor that no other refills are due, in the near future, with this provider at this time: Yes The last office visit in the department: 12-28-23 Does the patient have a future office visit with this provider/department: Yes 03-29-24 Requested Prescriptions Pending Prescriptions Disp Refills isosorbide mononitrate ER (IMDUR) 60 mg 24 hr tablet 90 tablet 1 Sig: Take 1 tablet by mouth once daily. Pippa Kurtz February 15, 2024 1:48 PM [facility]12-03-2024 Miscellaneous Notes* Telephone Encounter - Pippa Khalil - 02/15/2024 1:47 PM EST Prescription Refill Information The patient has been identified by name and date of : Yes Caregiver verified no other encounters exist for this prescription request: Yes Caregiver confirmed with patient/requestor that no other refills are due, in the near future, with this provider at this time: Yes The last office visit in the department: 12-28-23 Does the patient have a future office visit with this provider/department: Yes 03-29-24 Requested Prescriptions Pending Prescriptions Disp Refills isosorbide mononitrate ER (IMDUR) 60 mg 24 hr tablet 90 tablet 1 Sig: Take 1 tablet by mouth once daily. Pippa Kurtz February 15, 2024 1:48 PM documented in this encounterMer[facility]11-18-2024 Telephone encounter Note * Telephone Encounter - Pippa Khalil - 01/31/2024 9:59 AM EST Prescription Refill Information The patient has been identified by name and date of : Yes Caregiver verified no other encounters exist for this prescription request: Yes Caregiver confirmed with patient/requestor that no other refills are due, in the near future, with this provider at this time: Yes The last office visit in the department: 12-28-23 Does the patient have a future office visit with this provider/department: Yes 03-29-24 Requested Prescriptions Pending Prescriptions Disp Refills levothyroxine (LEVOXYL) 75 mcg tablet 90 tablet 1 Sig: Take 1 tablet by mouth once daily. pravastatin (PRAVACHOL) 80 mg tablet 90 tablet 1 Sig: Take 1 tablet by mouth daily at bedtime. Pippa Kurtz January 31, 2024 10:00 AM [facility]11-18-2024 Miscellaneous Notes* Telephone Encounter - Pippa Khalil - 01/31/2024 9:59 AM EST Prescription Refill Information The patient has been identified by name and date of : Yes Caregiver verified no other encounters exist for this prescription request: Yes Caregiver confirmed with patient/requestor that no other refills are due, in the near future, with this provider at this time: Yes The last office visit in the department: 12-28-23 Does the patient have a future office visit with this provider/department: Yes 03-29-24 Requested Prescriptions Pending Prescriptions Disp Refills levothyroxine (LEVOXYL) 75 mcg tablet 90 tablet 1 Sig: Take 1 tablet by mouth once daily. pravastatin (PRAVACHOL) 80 mg tablet 90 tablet 1 Sig: Take 1 tablet by mouth daily at bedtime. Pippa Kurtz January 31, 2024 10:00 AM documented in this encounterMer[facility]10-16-2024 Telephone encounter Note * Telephone Encounter - Marisol Holm RN - 12/29/2023 10:56 AM EDT Pt called and is notified of providers results and instructions. Pt voices understanding. Marisol Holm RN [facility]10-16-[facility]24 Miscellaneous Notes* Telephone Encounter - Marisol Holm RN - 12/29/2023 10:56 AM EDT Pt called and is notified of providers results and instructions. Pt voices understanding. Marisol Holm RN * Telephone Encounter - Frank Fuentes MD - 12/29/2023 10:49 AM EDT Rx sent. Start at 0.25 mg weekly and increase to 0.5 mg weekly after 1 month of use. Check sugars fasting and before bed. Call with any readings <80 or with concern for side effects. Please call with updated readings in 3-4 weeks. * Telephone Encounter - Suyapa Ronquillo LPN - 12/29/2023 10:11 AM EDT Phoned patient went over notes from Dr Fuentes with understanding. Patient said to go ahead and send rx to [facility] pharmacy. I was explaining about getting coupon to help with [employer], [employer] or [email or web address]. She does not have a smart phone or a computer at all. * Telephone Encounter - Frank Fuentes MD - 12/29/2023 10:05 AM EDT She would continue to take her other medications, so she would not have to finish any up. I would recommend starting the Ozempic as discussed to try to better control her diabetes. * Telephone Encounter - Cesar Paniagua LPN - 12/29/2023 8:40 AM EDT Spoke with pt and information listed below given. Pt verbalizes understanding. Pt would like to hold off on the Ozempic for the next 3 months and she can finish medication she has. Pt wanted you to know this am her blood sugar was 195. She reports having chills last night and feel all is related to the vaccines she got yesterday. Cesar Paniagua LPN * Telephone Encounter - Cesar Paniagua LPN - 12/29/2023 8:40 AM EDT ----- Message from Frank Fuentes MD sent at 12/29/2023 8:33 AM EDT ----- Blood work shows stable CKD in stage III range. Recommend low sodium diet <2,000 mg per day, avoidance of NSAIDs, and increased water intake. Diabetes improving, but still uncontrolled on current regimen. Is she interested in trying the Ozempic as discussed in office yesterday? documented in this encounterMer[facility]10-16-2024 Telephone encounter Note * Telephone Encounter - Frank Fuentes MD - 12/29/2023 10:49 AM EDT Rx sent. Start at 0.25 mg weekly and increase to 0.5 mg weekly after 1 month of use. Check sugars fasting and before bed. Call with any readings <80 or with concern for side effects. Please call with updated readings in 3-4 weeks. [facility]10-16-[facility] Telephone encounter Note* Telephone Encounter - Suyapa Ronquillo LPN - 12/29/2023 10:11 AM EDT Phoned patient went over notes from Dr Fuentes with understanding. Patient said to go ahead and send rx to [facility] pharmacy. I was explaining about getting coupon to help with [employer] or [email or web address]. She does not have a smart phone or a computer at all. [facility]10-16-[facility] Telephone encounter Note* Telephone Encounter - Frank Fuentes MD - 12/29/2023 10:05 AM EDT She would continue to take her other medications, so she would not have to finish any up. I would recommend starting the Ozempic as discussed to try to better control her diabetes. [facility] Telephone encounter Note* Telephone Encounter - Cesar Paniagua LPN - 12/29/2023 8:40 AM EDT Spoke with pt and information listed below given. Pt verbalizes understanding. Pt would like to hold off on the Ozempic for the next 3 months and she can finish medication she has. Pt wanted you to know this am her blood sugar was 195. She reports having chills last night and feel all is related to the vaccines she got yesterday. Cesar Paniagua LPN [facility]10-16-[facility] Telephone encounter Note* Telephone Encounter - Cesar Paniagua LPN - 12/29/2023 8:40 AM EDT ----- Message from Frank Fuentes MD sent at 12/29/2023 8:33 AM EDT ----- Blood work shows stable CKD in stage III range. Recommend low sodium diet <2,000 mg per day, avoidance of NSAIDs, and increased water intake. Diabetes improving, but still uncontrolled on current regimen. Is she interested in trying the Ozempic as discussed in office yesterday? [facility] History of Present illness Narrative* Frank Fuentes MD - 12/28/2023 2:00 PM EDT Chief Complaint Patient presents with: Follow Up: 3 month- labs and chest xray HPI Neelam Ryan is a 88 year old female who presents here today for 3 month follow up of uncontrolled DM. DIABETES MELLITUS: Ms. Ryan was last seen 3 months ago. Glipizide dosage increased to 10 mg BIDafter last A1c was high. Since our last visit she denies excessive thirst or increased frequency ofurination, numbness, tingling or pain in extremities, new or unusual visual symptoms, and low sugar/hypoglycemic reactions. Follows a diabetic diet most of the time. She is compliant with medication(s) and is tolerating med(s) without any side effects. She reports checking her glucose on a once a day schedule with sugars in the fasting <160 range. Patient's last HgA1C was Hemoglobin A1C (%) Date Value 09/22/2023 8.8 06/24/2023 8.9 12/12/2020 7.8 06/11/2020 8.1 ) Last Ophthalmology exam was within the past 12 months Last Podiatry exam was within the past 12 months Past medical history, appointments, medications, allergies reviewed. Previous Medical History PAST MEDICAL HISTORY Diagnosis Date Basal cell carcinoma Dr. Lambert Cholecystitis, unspecified Chronic kidney disease (CKD), stage IV (severe) (HCC) Dr. Montgomery Coronary atherosclerosis of unspecified type of vessel, tulalip or graft Dr. Davenport Depression Hammertoes of both feet Multinodular goiter 05/21/2016 Osteoarthritis Other and unspecified anemias Pure hypercholesterolemia Sciatica Swelling of lower extremity Type II or unspecified type diabetes mellitus without mention of complication, not stated as uncontrolled Podiatry-Dr. Mcgee Unspecified essential hypertension Unspecified hypothyroidism Previous Surgical History PAST SURGICAL HISTORY Procedure Laterality Date COLONOSCOPY FLX DX W/COLLJ SPEC WHEN PFRMD 01/30/2005 Colonoscopy COLONOSCOPY FLX DX W/COLLJ SPEC WHEN PFRMD 08/05/2015 Colonoscopy ESOPHAGOGASTRODUODENOSCOPY TRANSORAL DIAGNOSTIC 01/30/2005 EGD HEART CATHETERIZATION 09/2018 angiopasty of circumflex, 75% stenosis. LAD 80%. LAPAROSCOPY SURG CHOLECYSTECTOMY 12/02/2005 Cholecystectomy, lap PAST SURGICAL HISTORY OF hernia PAST SURGICAL HISTORY OF carpal tunnel both hands PAST SURGICAL HISTORY OF fingers different times PAST SURGICAL HISTORY OF trigger finger PAST SURGICAL HISTORY OF 06/21/2006 heart cath with stent placement [facility] PAST SURGICAL HISTORY OF 04/24/2008 vaginal hysterectomy, bladder suspension, rectocele PAST SURGICAL HISTORY OF 11/20/11 cardiac cath; percutaneous transluminal coronary angioplasty with stent @ [facility] PAST SURGICAL HISTORY OF left wrist surgery TOTAL THYROID LOBECTOMY UNI W/WO ISTHMUSECTOMY Right 05/21/2016 TRANSCATH STENT INIT VESSEL,PERCUT 08/18 Transcath stent init vessel percut LAD [facility] Family History FAMILY HISTORY Problem Relation Age of Onset Diabetes Mother CAD, ANGIOPLASTY Diabetes Father DC other (DC) Brother other (OHS) Sister other (DC) Brother Heart Sister diabetic Heart Sister Heart Sister diabetic Heart Sister diabetic Patient Allergies ALLERGIES Allergen Reactions Accupril [Quinapril* Cough Sulfa (Sulfonamide * Hives Atorvastatin Myalgia Benzonatate Hives Gabapentin Other: See Comments fatigue Simvastatin Other: See Comments Current Medications Current Outpatient Medications on File Prior to Visit Medication Sig citalopram (CELEXA) 20 mg tablet Take 1 tablet by mouth once daily. aspirin 81 mg cap Take 81 mg by mouth once daily. potassium chloride (K-TAB) 10 mEq tablet Take 1 tablet by mouth daily with breakfast. folic acid 1 mg tablet Take 2 tablets by mouth once daily. glipiZIDE (GLUCOTROL) 10 mg tablet Take 1 tablet (10 mg) by mouth two times a day before meals. furosemide (LASIX) 40 mg tablet Take 1 tablet by mouth once daily. pantoprazole DR (PROTONIX) 40 mg tablet Take 1 tablet by mouth daily before breakfast. Take on empty stomach, 1/2 hr before meal. SITagliptin phosphate (JANUVIA) 50 mg tablet Take 1 tablet by mouth once daily. levothyroxine (LEVOXYL) 75 mcg tablet Take 1 tablet by mouth once daily. pravastatin (PRAVACHOL) 80 mg tablet Take 1 tablet by mouth daily at bedtime. isosorbide mononitrate ER (IMDUR) 60 mg 24 hr tablet Take 1 tablet by mouth once daily. carvedilol (COREG) 25 mg tablet Take 1 tablet by mouth two times a day. amLODIPine (NORVASC) 2.5 mg tablet Take 1 tablet by mouth once daily. mecobalamin, vitamin B12, 1,000 mcg chew Take 1 tablet by mouth once daily. acetaminophen (TYLENOL) 500 mg tablet Take 2 tablets by mouth every 8 hours as needed for pain. blood sugar diagnostic (BLOOD GLUCOSE TEST) test strip Prodigy Glucometer Test blood sugar(s) 1 time daily. Dx: Type 2 DM - Controlled E11.9 Insulin: No nitroglycerin sublingual (NITROQUICK) 0.4 mg SL tablet Dissolve 1 tablet under the tongue as needed. DISSOLVE ONE(1) TABLET UNDER THE TOUNGUE NEEDED FOR CHEST PAIN,EVERY 5 MIN X3 Lancets lancets Test blood sugar(s) 1 times daily. Dx: Type 2 DM - Controlled E11.9 Insulin: No COMPOUNDED PRESCRIPTION Prodigy Glucometer test strips Test once daily. Dx: E11.9 Insulin: No Cholecalciferol, Vitamin D3, 1,000 unit cap Take 1 capsule by mouth once daily. COMPOUNDED PRESCRIPTION Lancets Test once daily. Dx: E11.9 Insulin: No Cranberry 500 mg cap Take 1 tablet by mouth once daily. XALATAN 0.005 % EYE DROPS one drop each eye at [facility] No current facility-administered medications on file prior to visit. Social History Social History Tobacco Use Smoking status: Never Smokeless tobacco: Never Vaping Use Vaping status: Never Used Substance Use Topics Alcohol use: No Drug use: No Review of Symptoms REVIEW OF SYSTEMS GENERAL: No weight loss, malaise or fevers RESPIRATORY: Negative for cough, hemoptysis, wheezing, COPD, dyspnea or shortness of breath CARDIOVASCULAR: Negative for chest pain, leg swelling, hypertension, CHF or palpitations GI: No nausea, vomiting, or diarrhea SKIN: Negative for lesions, rash, and itching EXAM: BP 116/64 Pulse 79 Wt 69.2 kg (152 lb 9.6 oz) SpO2 99% BMI 30.82 kg/m General Appearance: Well appearing, alert, in no acute distress, well-hydrated, well nourished.. Skin: Skin color, texture, turgor normal, no suspicious rashes or lesions. Lungs: Lungs clear to auscultation. No wheezing, rhonchi, rales.. Heart: RRR without murmur, gallop, or rubs. No ectopy. Abdomen: Normal abdominal exam, Abdomen soft, non-tender. Bowel sounds normal. No masses, organomegaly. Extremities: No deformities, edema, skin discoloration, clubbing or cyanosis. Good capillary refill. . Health Maintenance List Anxiety Screening Never done Shingrix Vaccine(1 of 2) Never done Advance Directive Discussion Never done Influenza Vaccine(1) due on 11/14/2023 Covid-19 Vaccine( season) due on 11/14/2023 HbA1C due on 12/23/2023 RSV Vaccine(1 - 1-dose 75+ series) due on 09/21/2024 Diabetic Foot Exam due on 06/22/2024 Urine Albumin:Creatinine Ratio due on 06/23/2024 LDL Cholesterol due on 06/23/2024 Dilated Retinal Exam due on 06/24/2024 DTaP,Tdap,Td Vaccine(6 - Td or Tdap) due on 06/22/2032 Bone Density Screening Completed Pneumococcal Vaccine: 65+ Completed Data reviewed Latest Ref Rng 06/24/2023 09/22/2023 WBC 3.70 - 11.00 k/uL 7.90 RBC 3.90 - 5.20 m/uL 2.92 (L) Hemoglobin 11.5 - 15.5 g/dL 10.9 (L) Hematocrit 36.0 - 46.0 % 32.4 (L) MCV 80.0 - 100.0 fL 111.0 (H) MCH 26.0 - 34.0 pg 37.3 (H) MCHC 30.5 - 36.0 g/dL 33.6 RDW-CV 11.5 - 15.0 % 15.6 (H) Platelet Count 150 - 400 k/uL 331 MPV 9.0 - 12.7 fL 10.3 Neut% % 57.9 Abs Neut (ANC) 1.45 - 7.50 k/uL 4.58 Lymph% % 28.4 Abs Lymph 1.00 - 4.00 k/uL 2.24 Overton% % 9.9 Abs Overton <0.87 k/uL 0.78 Eosin% % 3.0 Abs Eosin <0.46 k/uL 0.24 Baso% % 0.4 Abs Baso <0.11 k/uL 0.03 Immature Gran % % 0.4 IMMATURE GRANS (ABS) <0.10 k/uL 0.03 NRBC /100 WBC 0.5 Absolute nRBC <0.01 k/uL 0.04 (H) DTYPE Auto Protein, Total 6.3 - 8.0 g/dL 7.0 7.3 Albumin 3.9 - 4.9 g/dL 4.1 4.2 Calcium 8.5 - 10.2 mg/dL 9.8 9.7 Bilirubin, Total 0.2 - 1.3 mg/dL 0.7 0.5 Alkaline Phosphatase 34 - 123 U/L 49 50 AST 13 - 35 U/L 15 19 ALT 7 - 38 U/L 11 10 Glucose 74 - 99 mg/dL 147 (H) 220 (H) BUN 7 - 21 mg/dL 43 (H) 65 (H) Creatinine 0.58 - 0.96 mg/dL 1.27 (H) 1.60 (H) Sodium 136 - 144 mmol/L 139 135 (L) Potassium 3.7 - 5.1 mmol/L 4.5 4.6 Chloride 98 - 107 mmol/L 102 96 (L) CO2 22 - 30 mmol/L 25 26 Anion Gap 8 - 15 mmol/L 12 13 eGFR >=60 mL/min/1.73m 41 (L) 31 (L) Cholesterol, Total <200 mg/dL 117 Triglyceride <150 mg/dL 70 HDL Cholesterol >39 mg/dL 56 Non HDL Cholesterol <130 mg/dL 61 Fasting Time hrs 12 VLDL Cholesterol <30 mg/dL 14 TC:HDL Ratio <5.10 2.09 LDL Cholesterol <100 mg/dL 47 LDL:HDL Ratio <2.54 0.84 Creatinine, Ur Random (UCRR) 20.0 - 300.0 mg/dL 41.5 Albumin, Urine Random mg/L 30.6 Albumin/Creat Ratio <30 mg/g 74 (H) Hemoglobin A1C 4.3 - 5.6 % 8.9 (H) 8.8 (H) Estimated Average Glucose mg/dL 209 206 TSH 0.270 - 4.200 mIU/L 1.090 Legend: (L) Low (H) High ASSESSMENT/PLAN: 1. Type 2 diabetes mellitus with stage 3b chronic kidney disease, without long- term current use of insulin (HCC) - ICD9: 250.40, 585.3, ICD10: E11.22, N18.32 (primary diagnosis) - Control undetermined, due for labs - Continue current medications. Discussed GLP 1 as option if uncontrolled still - Statin prescribed - pravastatin - Blood glucose monitoring on a once daily schedule - Counseled on healthy diet and regular exercise - Discussed need for and benefit of weight loss. BMI 30.82 kg/(m^2) - Discussed diabetic education issues of diabetes complications and monitoring required, hypoglycemic/hyperglycemic symptoms, and medication-specific side effects and monitoring - Follow up in 3 months, sooner should any other issues arise. Recheck CMP - Counseled on avoiding NSAIDs, adequate hydration - Counseled on low sodium diet - Follow up with kidney medicine 2. Essential hypertension - ICD9: 401.9, ICD10: I10 - Controlled - Continue current medications - Recommend home blood pressure monitoring, to bring results to next visit - Encouraged sodium restriction, DASH or Mediterranean diet - Recommend regular aerobic exercise 3. Mixed hyperlipidemia - ICD9: 272.2, ICD10: E78.2 - Controlled - Continue current medications - Counseled on healthy diet and regular exercise 4. Encounter for immunization - ICD9: V03.89, ICD10: Z23 - INFLUENZA VACCINE, PRSV FREE, AGE 65+ YR, HIGH DOSE, TRIVALENT (FLUZONE HIGH-DOSE) - [employer] COVID-19 VACCINE AGE 12+ YR (COMIRNATY) Frank Fuentes MD documented in this encounterMer[facility]10-15-2024 NoteHNO ID: [id number] Author: FRANK FUENTES MD Service: ? Author Type: Physician Type: Progress Notes Filed: 12/29/2023 08:34 Note Text: Chief Complaint Patient presents with: Follow Up: 3 month- labs and chest xray HPI Neelam Ryan is a 88 year old female who presents here today for 3 month follow up of uncontrolled DM. DIABETES MELLITUS: Ms. Ryan was last seen 3 months ago. Glipizide dosage increased to 10 mg BID after last A1c was high. Since our last visit she denies excessive thirst or increased frequency of urination, numbness, tingling or pain in extremities, new or unusual visual symptoms, and low sugar/hypoglycemic reactions. Follows a diabetic diet most of the time. She is compliant with medication(s) and is tolerating med(s) without any side effects. She reports checking her glucose on a once a day schedule with sugars in the fasting <160 range. Patient's last HgA1C was Hemoglobin A1C (%) Date Value 09/22/2023 8.8 06/24/2023 8.9 12/12/2020 7.8 06/11/2020 8.1 ) Last Ophthalmology exam was within the past 12 months Last Podiatry exam was within the past 12 months Past medical history, appointments, medications, allergies reviewed. Previous Medical History PAST MEDICAL HISTORY Diagnosis Date Basal cell carcinoma Dr. Lambert Cholecystitis, unspecified Chronic kidney disease (CKD), stage IV (severe) (HCC) Dr. Montgomery Coronary atherosclerosis of unspecified type of vessel, tulalip or graft Dr. Issac Hernandes of both feet Multinodular goiter 05/21/2016 Osteoarthritis Other and unspecified anemias Pure hypercholesterolemia Sciatica Swelling of lower extremity Type II or unspecified type diabetes mellitus without mention of complication, not stated as uncontrolled Podiatry-Dr. Mcgee Unspecified essential hypertension Unspecified hypothyroidism Previous Surgical History PAST SURGICAL HISTORY Procedure Laterality Date COLONOSCOPY FLX DX W/COLLJ SPEC WHEN PFRMD 01/30/2005 Colonoscopy COLONOSCOPY FLX DX W/COLLJ SPEC WHEN PFRMD 08/05/2015 Colonoscopy ESOPHAGOGASTRODUODENOSCOPY TRANSORAL DIAGNOSTIC 01/30/2005 EGD HEART CATHETERIZATION 09/2018 angiopasty of circumflex, 75% stenosis. LAD 80%. LAPAROSCOPY SURG CHOLECYSTECTOMY 12/02/2005 Cholecystectomy, lap PAST SURGICAL HISTORY OF hernia PAST SURGICAL HISTORY OF carpal tunnel both hands PAST SURGICAL HISTORY OF fingers different times PAST SURGICAL HISTORY OF trigger finger PAST SURGICAL HISTORY OF 06/21/2006 heart cath with stent placement [facility] PAST SURGICAL HISTORY OF 04/24/2008 vaginal hysterectomy, bladder suspension, rectocele PAST SURGICAL HISTORY OF 11/20/11 cardiac cath; percutaneous transluminal coronary angioplasty with stent @ [facility] PAST SURGICAL HISTORY OF left wrist surgery TOTAL THYROID LOBECTOMY UNI W/WO ISTHMUSECTOMY Right 05/21/2016 TRANSCATH STENT INIT VESSEL,PERCUT 08/18 Transcath stent init vessel percut LAD [place] [facility] Family History FAMILY HISTORY Problem Relation Age of Onset Diabetes Mother CAD, ANGIOPLASTY Diabetes Father DC other (DC) Brother other (OHS) Sister other (DC) Brother Heart Sister diabetic Heart Sister Heart Sister diabetic Heart Sister diabetic Patient Allergies ALLERGIES Allergen Reactions Accupril [Quinapril* Cough Sulfa (Sulfonamide * Hives Atorvastatin Myalgia Benzonatate Hives Gabapentin Other: See Comments fatigue Simvastatin Other: See Comments Current Medications Current Outpatient Medications on File Prior to Visit Medication Sig citalopram (CELEXA) 20 mg tablet Take 1 tablet by mouth once daily. aspirin 81 mg cap Take 81 mg by mouth once daily. potassium chloride (K-TAB) 10 mEq tablet Take 1 tablet by mouth daily with breakfast. folic acid 1 mg tablet Take 2 tablets by mouth once daily. glipiZIDE (GLUCOTROL) 10 mg tablet Take 1 tablet (10 mg) by mouth two times a day before meals. furosemide (LASIX) 40 mg tablet Take 1 tablet by mouth once daily. pantoprazole DR (PROTONIX) 40 mg tablet Take 1 tablet by mouth daily before breakfast. Take on empty stomach, 1/2 hr before meal. SITagliptin phosphate (JANUVIA) 50 mg tablet Take 1 tablet by mouth once daily. levothyroxine (LEVOXYL) 75 mcg tablet Take 1 tablet by mouth once daily. pravastatin (PRAVACHOL) 80 mg tablet Take 1 tablet by mouth daily at bedtime. isosorbide mononitrate ER (IMDUR) 60 mg 24 hr tablet Take 1 tablet by mouth once daily. carvedilol (COREG) 25 mg tablet Take 1 tablet by mouth two times a day. amLODIPine (NORVASC) 2.5 mg tablet Take 1 tablet by mouth once daily. mecobalamin, vitamin B12, 1,000 mcg chew Take 1 tablet by mouth once daily. acetaminophen (TYLENOL) 500 mg tablet Take 2 tablets by mouth every 8 hours as needed for pain. blood sugar diagnostic (BLOOD GLUCOSE TEST) test strip Blue BoxigRSB SPINE Glucometer Test blood sugar(s) 1 time tanmay (more content not included)...[facility]10-01-2024 Telephone encounter Note* Telephone Encounter - Eliseo Youssef LPN - 12/14/2023 2:40 PM EDT Prescription Refill Information The patient has been identified by name and date of : Yes Caregiver verified no other encounters exist for this prescription request: Yes Caregiver confirmed with patient/requestor that no other refills are due, in the near future, with this provider at this time: Yes The last office visit in the department: 09/22/23 Does the patient have a future office visit with this provider/department: Yes Requested Prescriptions Pending Prescriptions Disp Refills citalopram (CELEXA) 20 mg tablet 90 tablet 1 Sig: Take 1 tablet by mouth once daily. Eliseo Youssef LPN December 14, 2023 2:41 PM [facility]10-01-2024 Miscellaneous Notes* Telephone Encounter - Eliseo Youssef LPN - 12/14/2023 2:40 PM EDT Prescription Refill Information The patient has been identified by name and date of : Yes Caregiver verified no other encounters exist for this prescription request: Yes Caregiver confirmed with patient/requestor that no other refills are due, in the near future, with this provider at this time: Yes The last office visit in the department: 09/22/23 Does the patient have a future office visit with this provider/department: Yes Requested Prescriptions Pending Prescriptions Disp Refills citalopram (CELEXA) 20 mg tablet 90 tablet 1 Sig: Take 1 tablet by mouth once daily. Eliseo Youssef LPN December 14, 2023 2:41 PM * Telephone Encounter - Bailee Fenton - 12/14/2023 1:08 PM EDT Prescription Refill Information The patient has been identified by name and date of : Yes Caregiver verified no other encounters exist for this prescription request: Yes Caregiver confirmed with patient/requestor that no other refills are due, in the near future, with this provider at this time: Yes The last office visit in the department: 09/22/2023 Does the patient have a future office visit with this provider/department: Yes Requested Prescriptions Pending Prescriptions Disp Refills citalopram (CELEXA) 20 mg tablet 90 tablet 1 Sig: Take 1 tablet by mouth once daily. Bailee Fenton December 14, 2023 1:09 PM documented in [facility] encounterMer[facility] Telephone encounter Note * Telephone Encounter - Bailee Fenton - 12/14/2023 1:08 PM EDT Prescription Refill Information The patient has been identified by name and date of : Yes Caregiver verified no other encounters exist for this prescription request: Yes Caregiver confirmed with patient/requestor that no other refills are due, in the near future, with this provider at this time: Yes The last office visit in the department: 09/22/2023 Does the patient have a future office visit with this provider/department: Yes Requested Prescriptions Pending Prescriptions Disp Refills citalopram (CELEXA) 20 mg tablet 90 tablet 1 Sig: Take 1 tablet by mouth once daily. Bailee Fenton December 14, 2023 1:09 PM [facility]09-20-2024 NoteHNO ID: [id number] Author: KAROLINA MCGEE, ? Service: ? Author Type: Physician Type: Progress Notes Filed: 12/03/2023 14:06 Note Text: Last saw pcp: 09/22/23 Subjective: Patient presents to clinic c/o painful toenails. They state that the nails are especially painful with shoe gear and pressure. Patient states that nails 1-5 b/l are painful. Patient admits to being diabetic. No other pedal complaints at this time. Patient states no change in medications or medical history since last visit. Objective: Patient presents to clinic ambulating in diabetic shoes Vasc: DP and PT pulses are palpable bilateral. CFT is less than 5 seconds bilateral. Skin temperature is warm to cool proximal to distal bilateral. There is mild edema or varicosities noted. Neuro: Protective sensation is intact to the foot and toes when tested with the 5.07 SWM bilateral. Vibratory sensation is decreased at the hallux IPJ bilateral. The hallux is downgoing bilateral. Derm: Nails 1-5 b/l are painful, discolored-yellow, thick, crumbly, dystrophic and with subungal debris. Skin is of normal turgor, texture and hair growth is present bilateral. There are no hyperkeratosis, ulcerations, scars, verruca or other lesions noted. Ortho: Muscle strength is 5/5 for all pedal groups tested. Ankle joint DF is decresaed with the knee extended with no pain or crepitus noted. 1st MPJ ROM is decreased bilateral. Hammertoe is noted b/l Assessment: (B35.1) Onychomycosis (primary encounter diagnosis) (M79.674) Pain in toe of right foot (M79.675) Pain in toe of left foot (E11.9) Type 2 diabetes mellitus without complication, without long-term current use of insulin ([facility]) (M20.41) Hammer toe of right foot Plan: Patient was seen and evaluated. Nails 1-5 bilateral were debrided in length and thickness. Discussed hammertoe of b/l feet. Options include wider shoes, padding, surgicla reconstruction, amputation. Patient has elected to continue with conservative care Patient was instructed on the continued importance of diabetic foot care along with proper diet and keeping their blood sugar under control to prevent complications. Stressed the importance of avoiding barefoot walking, wearing good shoes and inspection of feet daily Patient is to RTC in 3-4 months. Karolina Arely [facility]09-20-2024 History of Present illness Narrative* Karolina Mcgee - 12/03/2023 1:59 PM EDT Last saw pcp: 09/22/23 Subjective: Patient presents to clinic c/o painful toenails. They state that the nails are especially painful with shoe gear and pressure. Patient states that nails 1-5 b/l are painful. Patient admits to being diabetic. No other pedal complaints at this time. Patient states no change in medications or medical history since last visit. Objective: Patient presents to clinic ambulating in diabetic shoes Vasc: DP and PT pulses are palpable bilateral. CFT is less than 5 seconds bilateral. Skin temperature is warm to cool proximal to distal bilateral. There is mild edema or varicosities noted. Neuro: Protective sensation is intact to the foot and toes when tested with the 5.07 SWM bilateral.Vibratory sensation is decreased at the hallux IPJ bilateral. The hallux is downgoing bilateral. Derm: Nails 1-5 b/l are painful, discolored-yellow, thick, crumbly, dystrophic and with subungal debris. Skin is of normal turgor, texture and hair growth is present bilateral. There are no hyperkeratosis, ulcerations, scars, verruca or other lesions noted. Ortho: Muscle strength is 5/5 for all pedal groups tested. Ankle joint DF is decresaed with the knee extended with no pain or crepitus noted. 1st MPJ ROM is decreased bilateral. Hammertoe is noted b/l Assessment: (B35.1) Onychomycosis (primary encounter diagnosis) (M79.674) Pain in toe of right foot (M79.675) Pain in toe of left foot (E11.9) Type 2 diabetes mellitus without complication, without long-term current use of insulin (HCC) (M20.41) Hammer toe of right foot Plan: Patient was seen and evaluated. Nails 1-5 bilateral were debrided in length and thickness. Discussed hammertoe of b/l feet. Options include wider shoes, padding, surgicla reconstruction, amputation. Patient has elected to continue with conservative care Patient was instructed on the continued importance of diabetic foot care along with proper diet andkeeping their blood sugar under control to prevent complications. Stressed the importance of avoiding barefoot walking, wearing good shoes and inspection of feet daily Patient is to RTC in 3-4 months. Karolina Mcgee DPM * Marisol Hu RN - 12/03/2023 1:34 PM EDT Patient presents with: Left Foot - Established Patient, Follow Up, Diabetic Foot Care Right Foot - Established Patient, Follow Up, Diabetic Foot Care Patient presents for follow up diabetic foot care. KASANDRA 06/25/23 documented in this encounterMer[facility]09-20-2024 NoteHNO ID: [id number] Author: MARISOL HU RN Service: ? Author Type: Registered Nurse Type: Progress Notes Filed: 12/03/2023 14:06 Note Text: Patient presents with: Left Foot - Established Patient, Follow Up, Diabetic Foot Care Right Foot - Established Patient, Follow Up, Diabetic Foot Care Patient presents for follow up diabetic foot care. KASANDRA 06/25/23[facility] Telephone encounter Note* Telephone Encounter - Frank Fuentes MD - 11/22/2023 10:26 AM EDT Rx sent. [facility]09-09-2024 Miscellaneous Notes* Telephone Encounter - Frank Fuentes MD - 11/22/2023 10:26 AM EDT Rx sent. * Telephone Encounter - Abigail Sawyer - 11/22/2023 9:59 AM EDT Neelam is calling Frank Fuentes MD today to request the following medication, not on current list. Please send to [facility]. Disp Refills Start End potassium chloride (K-TAB) 10 mEq tablet 90 tablet 1 05/24/2023 11/20/2023 Sig: Take 1 tablet by mouth once daily. Sent to pharmacy as: potassium chloride (K-TAB) 10 mEq tablet Class: Normal Route: ORAL Order: [id number] E-Prescribing Status: Receipt confirmed by pharmacy (05/24/2023 1:33 PM EDT) Patient has been identified by name and birthdate. Duration of symptoms: N/A Person calling: self Call patient at: on cell [phone] (home) [phone] (cell) Was an appointment scheduled: No Closing statement: Results or non-symptom based questions: Thank you for calling [facility], your call will be returned within the next business day. Abigail Richardson Pss documented in this encounterMercy [facility]09-09-2024 Telephone encounter Note * Telephone Encounter - Abigail Sawyer - 11/22/2023 9:59 AM EDT Neelam is calling Frank Fuentes MD today to request the following medication, not on current list. Please send to [facility]. Disp Refills Start End potassium chloride (K-TAB) 10 mEq tablet 90 tablet 1 05/24/2023 11/20/2023 Sig: Take 1 tablet by mouth once daily. Sent to pharmacy as: potassium chloride (K-TAB) 10 mEq tablet Class: Normal Route: ORAL Order: [id number] E-Prescribing Status: Receipt confirmed by pharmacy (05/24/2023 1:33 PM EDT) Patient has been identified by name and birthdate. Duration of symptoms: N/A Person calling: self Call patient at: on cell [phone] (home) [phone] (cell) Was an appointment scheduled: No Closing statement: Results or non-symptom based questions: Thank you for calling [facility], your call will be returned within the next business day. Abigail Richardson Pss [facility]08-19-2024 Telephone encounter Note* Telephone Encounter - Caprice Ponce - 11/01/2023 8:35 AM EDT Prescription Refill Information The patient has been identified by name and date of : Yes Caregiver verified no other encounters exist for this prescription request: Yes Caregiver confirmed with patient/requestor that no other refills are due, in the near future, with this provider at this time: Yes The last office visit in the department: 09-22-23 Does the patient have a future office visit with this provider/department: Yes Requested Prescriptions Pending Prescriptions Disp Refills folic acid 1 mg tablet 180 tablet 3 Sig: Take 2 tablets by mouth once daily. Caprice Ponce November 01, 2023 8:36 AM [facility]08-19-2024 Miscellaneous Notes* Telephone Encounter - Caprice Ponce - 11/01/2023 8:35 AM EDT Prescription Refill Information The patient has been identified by name and date of : Yes Caregiver verified no other encounters exist for this prescription request: Yes Caregiver confirmed with patient/requestor that no other refills are due, in the near future, with this provider at this time: Yes The last office visit in the department: 09-22-23 Does the patient have a future office visit with this provider/department: Yes Requested Prescriptions Pending Prescriptions Disp Refills folic acid 1 mg tablet 180 tablet 3 Sig: Take 2 tablets by mouth once daily. Caprice Ponce November 01, 2023 8:36 AM documented in this encounterMercy [facility]07-16-2024 Telephone encounter Note * Telephone Encounter - Mary Vargas MSW - 09/28/2023 12:17 PM EDT Sw spoke with patient and she would like Sw to mail [facility] [employer] Older Adult resource guide to her home. The guide offers service information in regards to Meals on Wheels. Sw will also mail out [employer] Meals information to patient home. Sw verified patient home address and placed information in mail to her home. [facility]07-16-2024 Miscellaneous Notes* Telephone Encounter - Mary Vargas MSW - 09/28/2023 12:17 PM EDT Марина spoke with patient and she would like Sw to mail [facility] [employer] Older Adult resource guide to her home. The guide offers service information in regards to Meals on Wheels. Sw will also mail out [employer] Meals information to patient home. Марина verified patient home address and placed information in mail to her home. * Telephone Encounter - Mary Vargas MSW - 09/23/2023 1:27 PM EDT Sw left message for patient to return Sw call to discuss home delivered meal options ie simply ez, meals on wheels. documented in this encounterMercy Health [facility] Hospital07-12-2024 Telephone encounter Note * Telephone Encounter - Cesar Paniagua LPN - 09/24/2023 1:28 PM EDT Spoke with pt and information listed below given. Pt verbalizes understanding. Cesar Paniagua LPN [facility]07-12-2024 Miscellaneous Notes* Telephone Encounter - Cesar Paniagua LPN - 09/24/2023 1:28 PM EDT Spoke with pt and information listed below given. Pt verbalizes understanding. Cesar Paniagua LPN * Telephone Encounter - Trina Moore LPN - 09/24/2023 12:15 PM EDT Message left for patient to return call to review results and recommendations. Labs forwarded to DrLee's office. Trina Moore LPN * Telephone Encounter - Frank Fuentes MD - 09/24/2023 10:37 AM EDT Diabetes remains uncontrolled with A1c of 8.8. Recommend increasing glpizide to 10 mg BID and working on low carb diet. Kidney function stable in CKD stage IIIb range. Recommend low sodium diet <2,000 mg per day, avoidance of NSAIDs, and increased water intake. Please fax records to nephrology Dr. Montgomery. Thyroid levels normal. Monitor sugars daily and call with sugars <80 or with low sugar symptoms. Recheck labs prior to OV in 3 months. documented in this encounterMercy Health [facility]07-12-2024 Telephone encounter Note * Telephone Encounter - Trina Moore LPN - 09/24/2023 12:15 PM EDT Message left for patient to return call to review results and recommendations. Labs forwarded to Guerline's office. Trina Moore LPN [facility]07-12-2024 Telephone encounter Note* Telephone Encounter - Frank Fuentes MD - 09/24/2023 11:24 AM EDT New rx sent with clarification. [facility]07-12-2024 Miscellaneous Notes* Telephone Encounter - Frank Fuentes MD - 09/24/2023 11:24 AM EDT New rx sent with clarification. * Telephone Encounter - Va Goodman RN - 09/24/2023 11:07 AM EDT Jonathan Hickey Pharmacist calling regarding patient's script for glipizide 10 mg received today. Reports there are two different sets of directions and asking for clarification, please. Thank you. documented in this encounterMercy Health [facility] Hospital07-12-2024 Telephone encounter Note * Telephone Encounter - Va Goodman RN - 09/24/2023 11:07 AM EDT Jonathan Hickey Pharmacist calling regarding patient's script for glipizide 10 mg received today. Reports there are two different sets of directions and asking for clarification, please. Thank you. [facility]07-12-2024 Telephone encounter Note* Telephone Encounter - Frank Fuentes MD - 09/24/2023 10:37 AM EDT Diabetes remains uncontrolled with A1c of 8.8. Recommend increasing glpizide to 10 mg BID and working on low carb diet. Kidney function stable in CKD stage IIIb range. Recommend low sodium diet <2,000 mg per day, avoidance of NSAIDs, and increased water intake. Please fax records to nephrology Dr. Montgomery. Thyroid levels normal. Monitor sugars daily and call with sugars <80 or with low sugar symptoms. Recheck labs prior to OV in 3 months. [facility]07-11-2024 Telephone encounter Note* Telephone Encounter - Mary Vargas MSW - 09/23/2023 1:27 PM EDT Sw left message for patient to return Sw call to discuss home delivered meal options ie simply ez, meals on wheels. [facility]07-10-2024 History of Present illness Narrative* Patti Means RT(R) - 09/22/2023 2:40 PM EDT Radiology Service Progress Note PATIENT NAME: Neelam Ryan DATE OF SERVICE: September 22, 2023 TIME: 2:58 PM PATIENT IDENTITY VERIFICATION COMPLETED USING TWO (2) IDENTIFIERS: Name and Date of confirmedby patient verbally. FALL SCREENING: Has the patient had 2 falls in the last year or 1 fall with injury or currently using an Ambulatory Assistive Device (Walker, Cane, Wheelchair, Crutches, etc.)? Yes, Patient High Riskfor Falls What interventions were put in place to prevent falls during this visit? Instructed Patient to Callfor Help if Needed, Offered Assistance with Transfers/Clothing, Instructed Patient to Remain Seated(Not on Exam Table) Until Exam, and Increased Observations by Caregivers PATIENT GENDER DATA: Female. status: : No status: NO. PATIENT RELEVANT IMPLANT DATA REVIEWED: Yes PATIENT PRESENTS WITH AN IMPLANTABLE OR ATTACHED DIRECTOR INFORMATICS: No RADIOLOGY DEPARTMENT: General X-ray: Exam(s) Completed: Chest X-Ray PERIPHERAL IV DATA: Not applicable SIGNED BY: RT Tova(R) September 22, 2023 2:58 PM documented in this encounterMercy Health [facility]07-10-2024 History of Present illness Narrative* Frank Fuentes MD - 09/22/2023 1:48 PM EDT Chief Complaint Patient presents with: Follow Up: 3 month follow up- heart doctor increased lasix to 80 mg for 5 days only then baack to 40 mg per Dorothy [facility] HPI Neelam Ryan is a 88 year old female who presents here today for Above Complaints. Patient hasbeen in good health without recent hospitalizations, ER visits, or falls. No concerns today. DIABETES MELLITUS: Ms. Ryan was last seen 3 months ago. Since our last visit she denies excessive thirst or increased frequency of urination, numbness, tingling or pain in extremities, new or unusual visual symptoms, and low sugar/hypoglycemic reactions. Follows a diabetic diet generally not very much. States that she just does not feel like cooking anymore. She is compliant with medication(s) and is tolerating med(s) without any side effects. She reports checking her glucose on a once a day schedule with sugars in the fasting 130-170 range. Patient's last HgA1C was Hemoglobin A1C (%) Date Value 06/24/2023 8.9 03/24/2023 7.6 12/12/2020 7.8 06/11/2020 8.1 ) Last Ophthalmology exam was within the past 12 months Last Podiatry exam was within the past 12 months Patient had f/u with [facility] cardiology on 09/13 for history of CAD. Advised to resume ASA. Ordered labs and carotid US for dizziness. Patient tells me that based on her blood work results (BNP 365) they wanted her to increase her lasix to 80 mg daily for 5 days, then reduce back to 40 mg daily. Today isher last day of 80 mg dosage. States they also heard something on her lungs, but did not obtain xray. She has restarted her ASA. Denies chest pain, SOB, palpitations, LE edema, weight gain. Hypothyroidism: taking synthroid as prescribed without side effects. Asymtpomatic on current regimen. No changes to regimen at last OV with nephrology in August. States she does limit her sodium intake. Patient states that she does not take ibuprofen or aleve. Depression in remission. F/u with dermatology in November. No concerning lesions today. Past medical history, appointments, medications, allergies reviewed. Previous Medical History PAST MEDICAL HISTORY Diagnosis Date Basal cell carcinoma Dr. Lambert Cholecystitis, unspecified Chronic kidney disease (CKD), stage IV (severe) (HCC) Dr. Montgomery Coronary atherosclerosis of unspecified type of vessel, tulalip or graft Dr. Davenport Depression Hammertoes of both feet Multinodular goiter 05/21/2016 Osteoarthritis Other and unspecified anemias Pure hypercholesterolemia Sciatica Swelling of lower extremity Type II or unspecified type diabetes mellitus without mention of complication, not stated as uncontrolled Podiatry-Dr. Mcgee Unspecified essential hypertension Unspecified hypothyroidism Previous Surgical History PAST SURGICAL HISTORY Procedure Laterality Date COLONOSCOPY FLX DX W/COLLJ SPEC WHEN PFRMD 01/30/2005 Colonoscopy COLONOSCOPY FLX DX W/COLLJ SPEC WHEN PFRMD 08/05/2015 Colonoscopy ESOPHAGOGASTRODUODENOSCOPY TRANSORAL DIAGNOSTIC 01/30/2005 EGD HEART CATHETERIZATION 09/2018 angiopasty of circumflex, 75% stenosis. LAD 80%. LAPAROSCOPY SURG CHOLECYSTECTOMY 12/02/2005 Cholecystectomy, lap PAST SURGICAL HISTORY OF hernia PAST SURGICAL HISTORY OF carpal tunnel both hands PAST SURGICAL HISTORY OF fingers different times PAST SURGICAL HISTORY OF trigger finger PAST SURGICAL HISTORY OF 06/21/2006 heart cath with stent placement [facility] PAST SURGICAL HISTORY OF 04/24/2008 vaginal hysterectomy, bladder suspension, rectocele PAST SURGICAL HISTORY OF 11/20/11 cardiac cath; percutaneous transluminal coronary angioplasty with stent @ [facility] PAST SURGICAL HISTORY OF left wrist surgery TOTAL THYROID LOBECTOMY UNI W/WO ISTHMUSECTOMY Right 05/21/2016 TRANSCATH STENT INIT VESSEL,PERCUT 08/18 Transcath stent init vessel percut LAD [place] [facility] Family History FAMILY HISTORY Problem Relation Age of Onset Diabetes Mother CAD, ANGIOPLASTY Diabetes Father DC other (DC) Brother other (OHS) Sister other (DC) Brother Heart Sister diabetic Heart Sister Heart Sister diabetic Heart Sister diabetic Patient Allergies ALLERGIES Allergen Reactions Accupril [Quinapril* Cough Sulfa (Sulfonamide * Hives Atorvastatin Myalgia Benzonatate Hives Gabapentin Other: See Comments fatigue Simvastatin Other: See Comments Current Medications Current Outpatient Medications on File Prior to Visit Medication Sig furosemide (LASIX) 40 mg tablet Take 1 tablet by mouth once daily. pantoprazole DR (PROTONIX) 40 mg tablet Take 1 tablet by mouth daily before breakfast. Take on empty stomach, 1/2 hr before meal. SITagliptin phosphate (JANUVIA) 50 mg tablet Take 1 tablet by mouth once daily. levothyroxine (LEVOXYL) 75 mcg tablet Take 1 tablet by mouth once daily. pravastatin (PRAVACHOL) 80 mg tablet Take 1 tablet by mouth daily at bedtime. isosorbide mononitrate ER (IMDUR) 60 mg 24 hr tablet Take 1 tablet by mouth once daily. carvedilol (COREG) 25 mg tablet Take 1 tablet by mouth two times a day. glipiZIDE (GLUCOTROL) 5 mg tablet Take 2 tablets PO in the morning and 1 tablet PO at night. amLODIPine (NORVASC) 2.5 mg tablet Take 1 tablet by mouth once daily. citalopram (CELEXA) 20 mg tablet Take 1 tablet by mouth once daily. potassium chloride (K-TAB) 10 mEq tablet Take 1 tablet by mouth once daily. mecobalamin, vitamin B12, 1,000 mcg chew Take 1 tablet by mouth once daily. acetaminophen (TYLENOL) 500 mg tablet Take 2 tablets by mouth every 8 hours as needed for pain. folic acid 1 mg tablet Take 2 tablets by mouth once daily. blood sugar diagnostic (BLOOD GLUCOSE TEST) test strip Prodigy Glucometer Test blood sugar(s) 1 time daily. Dx: Type 2 DM - Controlled E11.9 Insulin: No nitroglycerin sublingual (NITROQUICK) 0.4 mg SL tablet Dissolve 1 tablet under the tongue as needed. DISSOLVE ONE(1) TABLET UNDER THE TOUNGUE NEEDED FOR CHEST PAIN,EVERY 5 MIN X3 Lancets lancets Test blood sugar(s) 1 times daily. Dx: Type 2 DM - Controlled E11.9 Insulin: No COMPOUNDED PRESCRIPTION Prodigy Glucometer test strips Test once daily. Dx: E11.9 Insulin: No Cholecalciferol, Vitamin D3, 1,000 unit cap Take 1 capsule by mouth once daily. COMPOUNDED PRESCRIPTION Lancets Test once daily. Dx: E11.9 Insulin: No Cranberry 500 mg cap Take 1 tablet by mouth once daily. XALATAN 0.005 % EYE DROPS one drop each eye at [facility] No current facility-administered medications on file prior to visit. Social History Social History Tobacco Use Smoking status: Never Smokeless tobacco: Never Vaping Use Vaping Use: Never used Substance Use Topics Alcohol use: No Drug use: No Review of Symptoms REVIEW OF SYSTEMS GENERAL: No weight loss, malaise or fevers RESPIRATORY: Negative for cough, hemoptysis, wheezing, COPD, dyspnea or shortness of breath CARDIOVASCULAR: Negative for chest pain, leg swelling, hypertension, CHF or palpitations GI: No nausea, vomiting, or diarrhea SKIN: Negative for lesions, rash, and itching ENDOCRINE: Negative for cold or heat intolerance, polyuria, polydipsia and goiter EXAM: BP 124/62 Pulse 77 Resp 12 Ht 149.9 cm (4' 11) Wt 68 kg (150 lb) SpO2 97% BMI 30.30 kg/m General Appearance: Well appearing, alert, in no acute distress, well-hydrated, well nourished.. Skin: Skin color, texture, turgor normal, no suspicious rashes or lesions. Lungs: decreased lung sounds in bases bilaterally possibly 2/2 kyphosis without rales, rhonchi or wheezing. Heart: RRR without murmur, gallop, or rubs. No ectopy. Abdomen: Normal abdominal exam, Abdomen soft, non-tender. Bowel sounds normal. No masses, organomegaly. Extremities: No deformities, edema, skin discoloration, clubbing or cyanosis. Good capillary refill. . Health Maintenance List RSV Vaccine(1 - 1-dose 60+ series) Never done Advance Directive Discussion Never done Covid-19 Vaccine(2022-24 season) due on 04/24/2023 Shingrix Vaccine(1 of 2) due on 12/23/2023 HbA1C due on 09/23/2023 Influenza Vaccine(1) due on 11/14/2023 Diabetic Foot Exam due on 06/22/2024 Urine Albumin:Creatinine Ratio due on 06/23/2024 LDL Cholesterol due on 06/23/2024 Dilated Retinal Exam due on 06/24/2024 DTaP,Tdap,Td Vaccine(6 - Td or Tdap) due on 06/22/2032 Bone Density Screening Completed Pneumococcal Vaccine: 65+ Completed Data reviewed Latest Ref Rng 06/24/2023 WBC 3.70 - 11.00 k/uL 7.90 RBC 3.90 - 5.20 m/uL 2.92 (L) Hemoglobin 11.5 - 15.5 g/dL 10.9 (L) Hematocrit 36.0 - 46.0 % 32.4 (L) MCV 80.0 - 100.0 fL 111.0 (H) MCH 26.0 - 34.0 pg 37.3 (H) MCHC 30.5 - 36.0 g/dL 33.6 RDW-CV 11.5 - 15.0 % 15.6 (H) Platelet Count 150 - 400 k/uL 331 MPV 9.0 - 12.7 fL 10.3 Neut% % 57.9 Abs Neut (ANC) 1.45 - 7.50 k/uL 4.58 Lymph% % 28.4 Abs Lymph 1.00 - 4.00 k/uL 2.24 Overton% % 9.9 Abs Overton <0.87 k/uL 0.78 Eosin% % 3.0 Abs Eosin <0.46 k/uL 0.24 Baso% % 0.4 Abs Baso <0.11 k/uL 0.03 Immature Gran % % 0.4 IMMATURE GRANS (ABS) <0.10 k/uL 0.03 NRBC /100 WBC 0.5 Absolute nRBC <0.01 k/uL 0.04 (H) DTYPE Auto Protein, Total 6.3 - 8.0 g/dL 7.0 Albumin 3.9 - 4.9 g/dL 4.1 Calcium 8.5 - 10.2 mg/dL 9.8 Bilirubin, Total 0.2 - 1.3 mg/dL 0.7 Alkaline Phosphatase 34 - 123 U/L 49 AST 13 - 35 U/L 15 ALT 7 - 38 U/L 11 Glucose 74 - 99 mg/dL 147 (H) BUN 7 - 21 mg/dL 43 (H) Creatinine 0.58 - 0.96 mg/dL 1.27 (H) Sodium 136 - 144 mmol/L 139 Potassium 3.7 - 5.1 mmol/L 4.5 Chloride 97 - 105 mmol/L 102 CO2 22 - 30 mmol/L 25 Anion Gap 9 - 18 mmol/L 12 eGFR >=60 mL/min/1.73m 41 (L) Cholesterol, Total <200 mg/dL 117 Triglyceride <150 mg/dL 70 HDL Cholesterol >39 mg/dL 56 Non HDL Cholesterol <130 mg/dL 61 Fasting Time hrs 12 VLDL Cholesterol <30 mg/dL 14 TC:HDL Ratio <5.10 2.09 LDL Cholesterol <100 mg/dL 47 LDL:HDL Ratio <2.54 0.84 Creatinine, Ur Random (UCRR) 20.0 - 300.0 mg/dL 41.5 Albumin, Urine Random mg/L 30.6 Albumin/Creat Ratio <30 mg/g 74 (H) Hemoglobin A1C 4.3 - 5.6 % 8.9 (H) Estimated Average Glucose mg/dL 209 Legend: (L) Low (H) High ASSESSMENT/PLAN: 1. Type 2 diabetes mellitus with stage 3b chronic kidney disease, without long- term current use of insulin (HCC) - ICD9: 250.40, 585.3, ICD10: E11.22, N18.32 (primary diagnosis) - Control undetermined, due for labs - Continue current medications - Statin prescribed - pravastatin - Blood glucose monitoring on a once daily schedule - Counseled on healthy diet and regular exercise - Discussed need for and benefit of weight loss. BMI 30.30 kg/(m^2) - Discussed diabetic education issues of diabetes complications and monitoring required, hypoglycemic/hyperglycemic symptoms, medication-specific side effects and monitoring, and diabetic sick day rules - Follow up in 3 months, sooner should any other issues arise. - eGFR: 41 Stable - Counseled on avoiding NSAIDs, adequate hydration - Counseled on low sodium diet - Follow up with kidney medicine - HEMOGLOBIN A1C - PRIMARY CARE SOCIAL WORK CONSULT 2. Essential hypertension - ICD9: 401.9, ICD10: I10 - Controlled - Continue current medications - Recommend home blood pressure monitoring, to bring results to next visit - Encouraged sodium restriction, DASH or Mediterranean diet - Recommend regular aerobic exercise - COMPREHENSIVE METABOLIC PANEL 3. Mixed hyperlipidemia - ICD9: 272.2, ICD10: E78.2 - Controlled - Continue current medications - Counseled on healthy diet and regular exercise 4. Stage 3b chronic kidney disease (HCC) - ICD9: 585.3, ICD10: N18.32 - eGFR: 41 Stable - Counseled on avoiding NSAIDs, adequate hydration - Counseled on low sodium diet - Follow up with kidney medicine - COMPREHENSIVE METABOLIC PANEL 5. Acquired hypothyroidism - ICD9: 244.9, ICD10: E03.9 - Instructed patient on importance of taking on an empty stomach either first thing in the morning or at bedtime. - check TSH today - continue current dose of Synthroid - THYROID STIMULATING HORMONE 6. ASHD (arteriosclerotic heart disease) - ICD9: 414.00, ICD10: I25.10 Asymptomatic on medical management. Finish higher dose of Lasix and will check CXR and repeat labs today. Discussed low sodium diet. Red flags for re- assessment reviewed with patient in detail. 7. Presence of 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 - ICD9: V45.82, ICD10: Z95.5 Recommendations per cardiology. 8. Recurrent major depressive disorder, in full remission (HCC) - ICD9: 296.36, ICD10: F33.42 In remission. 9. Decreased breath sounds of both lungs - ICD9: 786.9, ICD10: R09.89 Possibly 2/2 kyphosis vs effusion. Will obtain CXR to confirm. - XR CHEST 2V FRONTAL/LAT Frank Fuentes MD [facility] Tele[facility] encounter Note * Telephone Encounter - Pippa Khalil - 09/06/2023 10:59 AM EDT Prescription Refill Information The patient has been identified by name and date of : Yes Caregiver verified no other encounters exist for this prescription request: Yes Caregiver confirmed with patient/requestor that no other refills are due, in the near future, with this provider at this time: Yes The last office visit in the department: 03-03-24 Does the patient have a future office visit with this provider/department: Yes Requested Prescriptions Pending Prescriptions Disp Refills pantoprazole DR (PROTONIX) 40 mg tablet 90 tablet 1 Sig: Take 1 tablet by mouth daily before breakfast. Take on empty stomach, 1/2 hr before meal. SITagliptin phosphate (JANUVIA) 50 mg tablet 90 tablet 1 Sig: Take 1 tablet by mouth once daily. Pippa Kurtz September 06, 2023 10:59 AM [facility]06-24-[facility] Miscellaneous Notes* Telephone Encounter - Pippa Khalil - 09/06/2023 10:59 AM EDT Prescription Refill Information The patient has been identified by name and date of : Yes Caregiver verified no other encounters exist for this prescription request: Yes Caregiver confirmed with patient/requestor that no other refills are due, in the near future, with this provider at this time: Yes The last office visit in the department: 03-03-24 Does the patient have a future office visit with this provider/department: Yes Requested Prescriptions Pending Prescriptions Disp Refills pantoprazole DR (PROTONIX) 40 mg tablet 90 tablet 1 Sig: Take 1 tablet by mouth daily before breakfast. Take on empty stomach, 1/2 hr before meal. SITagliptin phosphate (JANUVIA) 50 mg tablet 90 tablet 1 Sig: Take 1 tablet by mouth once daily. Pippa Kurtz September 06, 2023 10:59 AM documented in this encounterMer[facility]06-[facility] Telephone encounter Note * Telephone Encounter - Caprice Ponce - 08/16/2023 8:07 AM EDT Patient has been identified by name and date of : Patient phones for refill(s): Requested Prescriptions Pending Prescriptions Disp Refills isosorbide mononitrate ER (IMDUR) 60 mg 24 hr tablet 90 tablet 1 Sig: Take 1 tablet by mouth once daily. Date of last office visit in primary care: 06/23/2023 Date of next office visit in primary care: 09/22/2023 Please advise. Thank you. Caprice Ponce. [facility]-03-[facility] Miscellaneous Notes* Telephone Encounter - Caprice Ponce - 08/16/2023 8:07 AM EDT Patient has been identified by name and date of : Patient phones for refill(s): Requested Prescriptions Pending Prescriptions Disp Refills isosorbide mononitrate ER (IMDUR) 60 mg 24 hr tablet 90 tablet 1 Sig: Take 1 tablet by mouth once daily. Date of last office visit in primary care: 06/23/2023 Date of next office visit in primary care: 09/22/2023 Please advise. Thank you. Caprice Ponce. documented in this encounterMer[facility]05-[facility]24 Telephone encounter Note * Telephone Encounter - Marybeth Manuel RN - 08/04/2023 10:58 AM EDT Per med list, it appears pt needed med refills on her Carvedilol, Isosorbide, Pantoprazole and Januvia as well. Called and confirmed this with Jonathan. [facility] Miscellaneous Notes* Telephone Encounter - Marybeth Manuel RN - 08/04/2023 10:58 AM EDT Per med list, it appears pt needed med refills on her Carvedilol, Isosorbide, Pantoprazole and Januvia as well. Called and confirmed this with Jonathan. * Telephone Encounter - Clementina Solorio - 08/04/2023 9:27 AM EDT Patient has been identified by name and date of : Yes, Provider Alfredo Patient phones for refill(s): Requested Prescriptions Pending Prescriptions Disp Refills levothyroxine (LEVOXYL) 75 mcg tablet 90 tablet 3 Sig: Take 1 tablet by mouth once daily. pravastatin (PRAVACHOL) 80 mg tablet 30 tablet 11 Sig: Take 1 tablet by mouth daily at bedtime. Date of last office visit in primary care: 06/23/2023 Date of next office visit in primary care: 09/22/2023 Please advise. Thank you. Clementina Kurtz. documented in this encounterMer[facility]05-[facility]24 Telephone encounter Note * Telephone Encounter - Clementina Solorio - 08/04/2023 9:27 AM EDT Patient has been identified by name and date of : Yes, Provider Alfredo Patient phones for refill(s): Requested Prescriptions Pending Prescriptions Disp Refills levothyroxine (LEVOXYL) 75 mcg tablet 90 tablet 3 Sig: Take 1 tablet by mouth once daily. pravastatin (PRAVACHOL) 80 mg tablet 30 tablet 11 Sig: Take 1 tablet by mouth daily at bedtime. Date of last office visit in primary care: 06/23/2023 Date of next office visit in primary care: 09/22/2023 Please advise. Thank you. Clementina Kurtz. [facility] Miscellaneous Notes* Telephone Encounter - Trina Moore LPN - 06/29/2023 7:33 PM EDT Phoned patient and reviewed provider's instructions with her. Patient repeated orders back correctly and voiced understanding. Trina Moore LPN * Telephone Encounter - Frank Fuentes MD - 06/29/2023 7:27 PM EDT Increase Glipizide to 2 tablets in the morning and 1 tablet at night. Check sugars fasting and before bed. Call with any readings less than 80. Continue to work on low carb diet. * Telephone Encounter - Trina Moore LPN - 06/29/2023 7:15 PM EDT Phoned patient and reviewed message with her. She confirmed she is taking the Januvia and Glipizideas ordered/listed. Advised her will update PCP and if he recommends anything additional we will call her back. She voiced understanding. Trina Moore LPN * Telephone Encounter - Frank Fuentes MD - 06/29/2023 7:06 PM EDT Blood work shows improving anemia. Cholesterol is normal. Kidney function is stable. Diabetes is poorly controlled with A1c up to 8.9 from 7.6. Please confirm with patient that she is taking her Januvia and Glipizide as prescribed and listed in her chart. documented in this encounterMer[facility]04-12-[facility]24 History of Present illness Narrative* Karolina Mcgee - 06/25/2023 11:37 AM EDT Last saw pcp: 06/23/23 Subjective: Patient presents to clinic c/o painful toenails. They state that the nails are especially painful with shoe gear and pressure. Patient states that nails 1-5 b/l are painful. Patient admits to being diabetic. No other pedal complaints at this time. Patient states no change in medications or medical history since last visit. Objective: Patient presents to clinic ambulating in diabetic shoe Vasc: DP and PT pulses are faintly palpable bilateral. CFT is less than 5 seconds bilateral. Skin temperature is warm to cool proximal to distal bilateral. There is mild edema or varicosities noted. Neuro: Protective sensation is absent to the foot and toes when tested with the 5.07 SWM bilateral.Vibratory sensation is absent at the hallux IPJ bilateral. The hallux is downgoing bilateral. Derm: Nails 1-5 b/l are painful, discolored-yellow, thick, crumbly, dystrophic and with subungal debris. Skin is of normal turgor, texture and hair growth is present bilateral. There are no hyperkeratosis, ulcerations, scars, verruca or other lesions noted. Ortho: Muscle strength is 5/5 for all pedal groups tested. Ankle joint DF is decreased with the knee extended with no pain or crepitus noted. 1st MPJ ROM is decreased bilateral. Hallux valgus is noted to b/l feet Assessment: (B35.1) Onychomycosis (primary encounter diagnosis) (M79.674) Pain in toe of right foot (M79.675) Pain in toe of left foot E11.40. diabetic neuropathy type 2 (M20.11) Acquired hallux valgus of right foot (M20.41) Hammer toe of right foot Plan: Patient was seen and evaluated. Nails 1-5 bilateral were debrided in length and thickness. Patient was instructed on the continued importance of diabetic foot care along with proper diet andkeeping their blood sugar under control to prevent complications. Discussed neuropathy of b/l feet.Recommend avoiding barefoot walking, wearing good shoes and use of lotion. Given history of neuropathy in presence of bunion, will order diabetic shoes. Patient is to RTC in 3-4 months. Karolina Mcgee DPM * Mabel Hamlin LPN - 06/25/2023 11:24 AM EDT AMB ROOMING INTAKE FLOWSHEET DATA Patient presents with: Left Foot - Established Patient, Follow Up, nail care4 Right Foot - Established Patient, Follow Up, nail care Mabel Hamlin LPN documented in this encounterMer[facility]04-12-2024 Instructions* Patient Instructions* Karolina Mcgee - 06/25/2023 11:37 AM EDT Diabetes Foot Care Instructions When you have diabetes, proper foot care is very important. Poor foot care may lead to amputation of a foot or leg. As a person with diabetes, you are more vulnerable to foot problems, because diabetes can damage your nerves and reduce blood flow to your feet. Here are some diabetes foot care tips to follow: Wash and Dry Your Feet Daily Use mild soaps Use warm water Pat your skin dry; do not rub. Thoroughly dry your feet. After washing, use lotion on your feet to prevent cracking. Do not put lotion between your toes. Examine Your Feet Each Day Check the tops and bottoms of your feet. Have someone else look at your feet if you cannot see them. Check for dry, cracked skin. Look for blisters, cuts, scratches, or other sores. Check for redness, increased warmth, or tenderness when touching any area of your feet. Check for ingrown toenails, corns, and calluses. If you get a blister or sore from your shoes, do not pop it. Apply a bandage and wear a differentpair of shoes. Take Care of Your Toenails Cut toenails after bathing, when they are soft. Cut toenails straight across and smooth with a nail file. Avoid cutting into the corners of toes. Do not cut cuticles. If you have neuropathy (or decreased sensation in your feet) a finish saw operator should always cut your toenails. Be Careful When Exercising Walk and exercise in comfortable shoes. Do not exercise when you have open sores on your feet. Protect Your Feet With Shoes and Socks Never go barefoot. Always protect your feet by wearing shoes or hard-soled slippers or footwear. Avoid shoes with high heels and pointed toes. Avoid shoes that expose your toes or heels (such as open-toed shoes or sandals). These types of shoes increase your risk for injury and potential infections. Try on new footwear with the type of socks you usually wear. Do not wear new shoes for more than an hour at a time. Change your socks daily. Look and feel inside your shoes before putting them on to make sure there are no foreign objects orrough areas. Avoid tight socks. Wear natural-fiber socks (cotton, wool, or a cotton-wool blend). Wear special shoes if your health care provider recommends them. Wear shoes/boots that will protect your feet from various weather conditions (cold, moisture, etc.). Make sure your shoes fit properly. If you have neuropathy (nerve damage), you may not notice that your shoes are too tight. Perform the footwear test described below. Footwear Test Use this simple test to see if your shoes fit correctly: Stand on a piece of paper. (Make sure you are standing and not sitting, because your foot changes shape when you stand.) Trace the outline of your foot. Trace the outline of your shoe. Compare the tracings: Is the shoe too narrow? Is your foot crammed into the shoe? The shoe should be at least 1/2 inch longer than your longest toe and as wide as your foot. Proper Shoe Choices The following types of shoes are best for people with diabetes Closed toes and heels Leather uppers without a seam inside At least 1/2 inch extra space at the end of your longest toe Inside of shoe should be soft with no rough areas Outer sole should be made of stiff material Shoes should be at least as wide as your feet Tips for Foot Care in Diabetes Don't wait to treat a minor foot problem if you have diabetes. Follow your health care provider's guidelines and first aid guidelines. Report foot injuries and infections to your health care provider immediately. Check water temperature with your elbow, not your foot. Do not use a heating pad on your feet. Do not cross your legs. Do not self-treat your corns, calluses, or other foot problems. Go to your health care provider or finish saw operator to treat these conditions. documented in this encounterMer[facility]04-10-2024 History of Present illness Narrative* Frank Fuentes MD - 06/23/2023 2:17 PM EDT Chief Complaint Patient presents with: 3 mo follow up HPI Neelam Ryan is a 88 year old female who presents here today for Above Complaints.. Patient has been using walker on a daily basis and has not had any falls in the last 3 months. DIABETES MELLITUS: Ms. Ryan was last seen 3 months ago. Since our last visit she denies excessive thirst or increased frequency of urination, numbness, tingling or pain in extremities, new or unusual visual symptoms, and low sugar/hypoglycemic reactions. Follows a diabetic diet most of the time. She is compliant with medication(s) and is tolerating med(s) without any side effects. She reportschecking her glucose on a once a day schedule with sugars in the <150 range. Patient's last HgA1C was Hemoglobin A1C (%) Date Value 03/24/2023 7.6 12/22/2022 7.9 12/12/2020 7.8 06/11/2020 8.1 ) Last Ophthalmology exam was within the past 12 months Last Podiatry exam was within the past 6 months BP in good range today. Not checking at home. Compliant on current regimen. Denies HTN symptoms. Hypothyroidism: complaint with Levoxyl without side effects. Asymptomatic. TSH in good range in thelast 6 months. Past medical history, appointments, medications, allergies reviewed. Previous Medical History PAST MEDICAL HISTORY Diagnosis Date Basal cell carcinoma Dr. Lambert Cholecystitis, unspecified Chronic kidney disease (CKD), stage IV (severe) (HCC) Dr. Montgomery Coronary atherosclerosis of unspecified type of vessel, tulalip or graft Dr. Issac Pulliam Hammertoes of both feet Multinodular goiter 05/21/2016 Osteoarthritis Other and unspecified anemias Pure hypercholesterolemia Sciatica Swelling of lower extremity Type II or unspecified type diabetes mellitus without mention of complication, not stated as uncontrolled Podiatry-Dr. Mcgee Unspecified essential hypertension Unspecified hypothyroidism Previous Surgical History PAST SURGICAL HISTORY Procedure Laterality Date COLONOSCOPY FLX DX W/COLLJ SPEC WHEN PFRMD 01/30/2005 Colonoscopy COLONOSCOPY FLX DX W/COLLJ SPEC WHEN PFRMD 08/05/2015 Colonoscopy ESOPHAGOGASTRODUODENOSCOPY TRANSORAL DIAGNOSTIC 01/30/2005 EGD HEART CATHETERIZATION 09/2018 angiopasty of circumflex, 75% stenosis. LAD 80%. LAPAROSCOPY SURG CHOLECYSTECTOMY 12/02/2005 Cholecystectomy, lap PAST SURGICAL HISTORY OF hernia PAST SURGICAL HISTORY OF carpal tunnel both hands PAST SURGICAL HISTORY OF fingers different times PAST SURGICAL HISTORY OF trigger finger PAST SURGICAL HISTORY OF 06/21/2006 heart cath with stent placement [facility] PAST SURGICAL HISTORY OF 04/24/2008 vaginal hysterectomy, bladder suspension, rectocele PAST SURGICAL HISTORY OF 11/20/11 cardiac cath; percutaneous transluminal coronary angioplasty with stent @ [facility] PAST SURGICAL HISTORY OF left wrist surgery TOTAL THYROID LOBECTOMY UNI W/WO ISTHMUSECTOMY Right 05/21/2016 TRANSCATH STENT INIT VESSEL,PERCUT 08/18 Transcath stent init vessel percut LAD [facility] Family History FAMILY HISTORY Problem Relation Age of Onset Diabetes Mother CAD, ANGIOPLASTY Diabetes Father DC other (DC) Brother other (OHS) Sister other (DC) Brother Heart Sister diabetic Heart Sister Heart Sister diabetic Heart Sister diabetic Patient Allergies ALLERGIES Allergen Reactions Accupril [Quinapril* Cough Sulfa (Sulfonamide * Hives Atorvastatin Myalgia Benzonatate Hives Gabapentin Other: See Comments fatigue Simvastatin Other: See Comments Current Medications Current Outpatient Medications on File Prior to Visit Medication Sig citalopram (CELEXA) 20 mg tablet Take 1 tablet by mouth once daily. potassium chloride (K-TAB) 10 mEq tablet Take 1 tablet by mouth once daily. amLODIPine (NORVASC) 5 mg tablet Take 0.5 tablets by mouth once daily. glipiZIDE (GLUCOTROL) 5 mg tablet Take 1 1/2 tablets PO in the morning and 1 tablet PO at night. furosemide (LASIX) 40 mg tablet Take 1 tablet by mouth once daily. pantoprazole DR (PROTONIX) 40 mg tablet Take 1 tablet by mouth daily before breakfast. Take on empty stomach, 1/2 hr before meal. isosorbide mononitrate ER (IMDUR) 60 mg 24 hr tablet Take 1 tablet by mouth once daily. sitaGLIPtin phosphate (JANUVIA) 50 mg tablet Take 1 tablet by mouth once daily. mecobalamin, vitamin B12, 1,000 mcg chew Take 1 tablet by mouth once daily. acetaminophen (TYLENOL) 500 mg tablet Take 2 tablets by mouth every 8 hours as needed for pain. folic acid 1 mg tablet Take 2 tablets by mouth once daily. carvedilol (COREG) 25 mg tablet Take 1 tablet by mouth twice daily. pravastatin (PRAVACHOL) 80 mg tablet Take 1 tablet by mouth daily at bedtime. levothyroxine (LEVOXYL) 75 mcg tablet Take 1 tablet by mouth once daily. blood sugar diagnostic (BLOOD GLUCOSE TEST) test strip Prodigy Glucometer Test blood sugar(s) 1 time daily. Dx: Type 2 DM - Controlled E11.9 Insulin: No nitroglycerin sublingual (NITROQUICK) 0.4 mg SL tablet Dissolve 1 tablet under the tongue as needed. DISSOLVE ONE(1) TABLET UNDER THE TOUNGUE NEEDED FOR CHEST PAIN,EVERY 5 MIN X3 Lancets lancets Test blood sugar(s) 1 times daily. Dx: Type 2 DM - Controlled E11.9 Insulin: No COMPOUNDED PRESCRIPTION Prodigy Glucometer test strips Test once daily. Dx: E11.9 Insulin: No Cholecalciferol, Vitamin D3, 1,000 unit cap Take 1 capsule by mouth once daily. COMPOUNDED PRESCRIPTION Lancets Test once daily. Dx: E11.9 Insulin: No Cranberry 500 mg cap Take 1 tablet by mouth once daily. XALATAN 0.005 % EYE DROPS one drop each eye at [facility] No current facility-administered medications on file prior to visit. Social History Social History Tobacco Use Smoking status: Never Smokeless tobacco: Never Vaping Use Vaping Use: Never used Substance Use Topics Alcohol use: No Drug use: No Review of Symptoms REVIEW OF SYSTEMS GENERAL: No weight loss, malaise or fevers RESPIRATORY: Negative for cough, hemoptysis, wheezing, COPD, dyspnea or shortness of breath CARDIOVASCULAR: Negative for chest pain, leg swelling, hypertension, CHF or palpitations GI: No nausea, vomiting, or diarrhea SKIN: Negative for lesions, rash, and itching EXAM: BP 120/70 Pulse 84 Resp 16 Wt 69.9 kg (154 lb) BMI 31.10 kg/m General Appearance: Well appearing, alert, in no acute distress, well-hydrated, well nourished.. Skin: Skin color, texture, turgor normal, no suspicious rashes or lesions. Lungs: Lungs clear to auscultation. No wheezing, rhonchi, rales.. Heart: RRR without murmur, gallop, or rubs. No ectopy. Abdomen: Normal abdominal exam, Abdomen soft, non-tender. Bowel sounds normal. No masses, organomegaly. Extremities: No deformities, edema, skin discoloration, clubbing or cyanosis. Good capillary refill. . Feet: Shoes and socks removed, No deformities, ulcers, calluses, normal distal pulses, and sensitive to 10 gm monofilament Health Maintenance List RSV Vaccine(1 - 1-dose 60+ series) Never done Advance Directive Discussion Never done Diabetic Foot Exam due on 05/14/2023 Urine Albumin:Creatinine Ratio due on 06/23/2023 LDL Cholesterol due on 06/23/2023 Shingrix Vaccine(1 of 2) due on 12/23/2023 HbA1C due on 09/22/2023 Dilated Retinal Exam due on 01/05/2024 DTaP,Tdap,Td Vaccine(6 - Td or Tdap) due on 06/22/2032 Bone Density Screening Completed Influenza Vaccine Completed Covid-19 Vaccine Completed Pneumococcal Vaccine: 65+ Completed Data reviewed Latest Ref Rng 03/24/2023 WBC 3.70 - 11.00 k/uL 12.21 (H) RBC 3.90 - 5.20 m/uL 2.82 (L) Hemoglobin 11.5 - 15.5 g/dL 10.6 (L) Hematocrit 36.0 - 46.0 % 31.9 (L) MCV 80.0 - 100.0 fL 113.1 (H) MCH 26.0 - 34.0 pg 37.6 (H) MCHC 30.5 - 36.0 g/dL 33.2 RDW-CV 11.5 - 15.0 % 16.2 (H) Platelet Count 150 - 400 k/uL 350 MPV 9.0 - 12.7 fL 10.5 Neut% % 73.0 Abs Neut (ANC) 1.45 - 7.50 k/uL 8.90 (H) Lymph% % 17.6 Abs Lymph 1.00 - 4.00 k/uL 2.15 Overton% % 6.6 Abs Overton <0.87 k/uL 0.81 Eosin% % 2.0 Abs Eosin <0.46 k/uL 0.25 Baso% % 0.4 Abs Baso <0.11 k/uL 0.05 Immature Gran % % 0.4 IMMATURE GRANS (ABS) <0.10 k/uL 0.05 NRBC /100 WBC 0.2 Absolute nRBC <0.01 k/uL 0.02 (H) DTYPE Auto Protein, Total 6.3 - 8.0 g/dL 6.8 Albumin 3.9 - 4.9 g/dL 4.1 Calcium 8.5 - 10.2 mg/dL 9.8 Bilirubin, Total 0.2 - 1.3 mg/dL 0.4 Alkaline Phosphatase 34 - 123 U/L 52 AST 13 - 35 U/L 17 ALT 7 - 38 U/L 11 Glucose 74 - 99 mg/dL 256 (H) BUN 7 - 21 mg/dL 48 (H) Creatinine 0.58 - 0.96 mg/dL 1.48 (H) Sodium 136 - 144 mmol/L 134 (L) Potassium 3.7 - 5.1 mmol/L 4.7 Chloride 97 - 105 mmol/L 97 CO2 22 - 30 mmol/L 21 (L) Anion Gap 9 - 18 mmol/L 16 eGFR >=60 mL/min/1.73m 34 (L) Hemoglobin A1C 4.3 - 5.6 % 7.6 (H) Estimated Average Glucose mg/dL 171 ASSESSMENT/PLAN: 1. Type 2 diabetes mellitus without complication, without long-term current use of insulin (HCC) - ICD9: 250.00, ICD10: E11.9 (primary diagnosis) - Control undetermined, due for labs - Continue current medications - Statin prescribed - pravastatin - Blood glucose monitoring on a once daily schedule - Counseled on healthy diet and regular exercise - Discussed need for and benefit of weight loss. BMI 31.10 kg/(m^2) - Discussed diabetic education issues of diabetes complications and monitoring required, hypoglycemic/hyperglycemic symptoms, and medication-specific side effects and monitoring - Follow up in 3 months, sooner should any other issues arise. Patient would benefit from diabetic shoes and inserts. - COMPREHENSIVE METABOLIC PANEL - COMPLETE BLOOD COUNT AND DIFFERENTIAL - HEMOGLOBIN A1C - LIPID PANEL BASIC - ALBUMIN/CREATININE RATIO, URINE 2. Essential hypertension - ICD9: 401.9, ICD10: I10 - Controlled - Continue current medications - Recommend home blood pressure monitoring, to bring results to next visit - Encouraged sodium restriction, DASH or Mediterranean diet - Recommend regular aerobic exercise 3. Stage 3b chronic kidney disease (HCC) - ICD9: 585.3, ICD10: N18.32 Recheck CMP. - Counseled on avoiding NSAIDs, adequate hydration - Counseled on low sodium diet 4. Acquired hypothyroidism - ICD9: 244.9, ICD10: E03.9 - Instructed patient on importance of taking on an empty stomach either first thing in the morning or at bedtime. - continue current dose of Synthroid Frank Fuentes MD documented [facility] encounter[facility]24 Miscellaneous Notes* Telephone Encounter - Pippa Khalil - 06/21/2023 10:09 AM EDT Patient has been identified by name and date of : Yes, Provider Dr. Fuentes Date 06-21-23 Time 10:10 am Patient phones for refill(s): Requested Prescriptions Pending Prescriptions Disp Refills citalopram (CELEXA) 20 mg tablet 90 tablet 1 Sig: Take 1 tablet by mouth once daily. Date of last office visit in primary care: 03/24/2023 Date of next office visit in primary care: 06/23/2023 Please advise. Thank you. Pippa Kurtz. documented in this encounterMer[facility]03-11-2024 Miscellaneous Notes* Telephone Encounter - Priyanka Hobbs - 05/24/2023 1:07 PM EDT Pharmacy verified in [facility] Patient has been identified by name and date of : Yes Patient aware RX will be sent to pharmacy. No need to notify patient. Patient phones for refill(s): Requested Prescriptions Pending Prescriptions Disp Refills potassium chloride (K-TAB) 10 mEq tablet 90 tablet 3 Sig: Take 1 tablet by mouth once daily. Date of last office visit : 03/24/2023 Date of next office visit : 06/23/2023 Last 2 Encounter Wt Readings: Date: Wt: 03/24/2023 68.6 kg (151 lb 3.2 oz) 03/02/2023 67.6 kg (149 lb) Not applicable Please advise. Priyanka Kurtz documented in this encounterMer[facility]02-06-2024 Miscellaneous Notes* Telephone Encounter - Pippa Khalil - 04/20/2023 1:37 PM EST Patient has been identified by name and date of : Yes, Provider Dr. Fuentes Date 04-20-23 Time 1:38 pm Patient phones for refill(s): Requested Prescriptions Pending Prescriptions Disp Refills amLODIPine (NORVASC) 5 mg tablet 45 tablet 1 Sig: Take 0.5 tablets by mouth once daily. Date of last office visit in primary care: 03/24/2023 Date of next office visit in primary care: 06/23/2023 Please advise. Thank you. Pippa Kurtz. documented in this encounterMer[facility]12-20-2023 Miscellaneous Notes* Telephone Encounter - Brinda Freeman OCCA - 03/03/2023 12:07 PM EST TC to patient who verbalized understanding of below and has no questions at this time. ALEAH Kebede * Telephone Encounter - Brinda Freeman OCCA - 03/03/2023 12:05 PM EST ----- Message from Frank Fuentes MD sent at 03/02/2023 7:05 PM EST ----- Improving kidney function back to baseline as well as improved anemia after subdural hematoma. BNP level is also coming down which is a sign of improved fluid overload/heart failure. I would have her continue current regimen and follow up with cardiology as scheduled. documented in this encounterMercy [facility]12-11-2023 History of Present illness Narrative* Brittany Mayo RN - 02/22/2023 8:27 PM EST TRANSITION CARE MANAGEMENT (TCM) FOLLOW-UP NOTE Provider Action/FYI: TCM Chart review. Pt had NEURO f/u on 02/19/23 Pt has PCP f/u on 03/02/23 Appointments for Next 60 Days Date Time Provider Location Dept Phone 03/02/2023 9:00 AM FRANK FUENTES [facility] [phone] 03/05/2023 1:20 PM [facility] [place] [phone] 03/24/2023 2:00 PM FRANK FUENTES [facility] [phone] Discharge Network Status: In-Network Discharge Summary: discharged from [facility] on 02/08/23. Admitted for: Subdural hematoma ASSESSMENT/PLAN: 1. Subdural hematoma (HCC) - ICD9: 432.1, ICD10: S06.5XAA Patient had a fall on 06 February 2023 and hit her head and subsequently underwent a CT scan that showed intracranial bleed in the interhemispheric fissure that was stable over serial scans so she was discharged and now she presents for a follow-up visit after a CT scan was done today. She has been symptom free and she has a normal neurological examination. The CT scan is satisfactory with no evidence of new bleeding or change into a chronic subdural hematoma. As the patient had been on aspirinand Plavix that was discontinued after her trauma she can now resume these 2 medications if deemed necessary by her manager transfusion. Nimesh Phillips MD 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 plan for next outreach: No further follow up needed at this time ELAN Education Ordered -: No Signature Brittany Mayo RN February 22, 2023 documented in this encounterMer[facility]12-08-2023 NoteHNO ID: [id number] Author: Nimesh Phillips MD Service: ? Author Type: Physician Type: Progress Notes Filed: 02/19/2023 10:33 AM Note Text: NEUROSURGERY FOLLOW UP OFFICE NOTE Dr. Nimesh Phillips MD, FACS Date of visit: February 19, 2023 Patient Name: Ms.Esther Toño Ryan Date of : 1935 Current Age: [age] year old Sex: female MRN/E# [id number] Last Office Visit: Hospital follow-up CHIEF COMPLAINT: Patient presents with: Established Patient SUBJECTIVE: The patient presents as a hospital follow-up with imaging (CT B) for evaluation. This is a 87-year-old female with a PMHx of basal cell carcinoma, CAD (3 stents), thyroid goiter, ALEJA, hypercholesterolemia, DM, HTN, on Plavix and aspirin who was seen for consult on 02/06/2023. She was transferred as a trauma from an OSH after a fall at home causing her to land on her left side. Workup at outside hospital demonstrated a left falx subdural hematoma. She was given DDAVP and her blood thinning medications were placed on hold. Once repeat imaging stabilized no surgical intervention was indicated. Recommendation was to continue to hold the Plavix and aspirin and follow-up in 10 days with repeat CTB prompting her visit today. Since discharge she states she is overall doing well. She denies any neurological symptoms since discharge. Denies headache, visual changes, speech deficits, seizure activity, motor or sensory deficits. She presents for image review, evaluation and plan of care. SYMPTOMS: None PREVIOUS CONSERVATIVE TREATMENTS: Tylenol prn SURGICAL RISK: Smoker: No Diabetic: Yes -A1c 7.9% on 12/22/2022 Anticoagulants / Antiplatelets: ASA/Plavix -hold Occupation: N/A PREVIOUS SURGERY: None PAIN EVALUATION No data found in the last 1 encounters. PAST MEDICAL HISTORY Diagnosis Date Basal cell carcinoma Dr. Lambert Cholecystitis, unspecified Chronic kidney disease (CKD), stage IV (severe) (HCC) Dr. Montgomery Coronary atherosclerosis of unspecified type of vessel, tulalip or graft Dr. Issac Arevaloertoes of both feet Multinodular goiter 05/21/2016 Osteoarthritis Other and unspecified anemias Pure hypercholesterolemia Sciatica Swelling of lower extremity Type II or unspecified type diabetes mellitus without mention of complication, not stated as uncontrolled Podiatry-Dr. Mcgee Unspecified essential hypertension Unspecified hypothyroidism PAST SURGICAL HISTORY Procedure Laterality Date COLONOSCOPY FLX DX W/COLLJ SPEC WHEN PFRMD 01/30/2005 Colonoscopy COLONOSCOPY FLX DX W/COLLJ SPEC WHEN PFRMD 08/05/2015 Colonoscopy ESOPHAGOGASTRODUODENOSCOPY TRANSORAL DIAGNOSTIC 01/30/2005 EGD HEART CATHETERIZATION 09/2018 angiopasty of circumflex, 75% stenosis. LAD 80%. LAPAROSCOPY SURG CHOLECYSTECTOMY 12/02/2005 Cholecystectomy, lap PAST SURGICAL HISTORY OF hernia PAST SURGICAL HISTORY OF carpal tunnel both hands PAST SURGICAL HISTORY OF fingers different times PAST SURGICAL HISTORY OF trigger finger PAST SURGICAL HISTORY OF 06/21/2006 heart cath with stent placement [facility] PAST SURGICAL HISTORY OF 04/24/2008 vaginal hysterectomy, bladder suspension, rectocele PAST SURGICAL HISTORY OF 11/20/11 cardiac cath; percutaneous transluminal coronary angioplasty with stent @ [facility] PAST SURGICAL HISTORY OF left wrist surgery TOTAL THYROID LOBECTOMY UNI W/WO ISTHMUSECTOMY Right 05/21/2016 TRANSCATH STENT INIT VESSEL,PERCUT 08/18 Transcath stent init vessel percut LAD [place] [facility] FAMILY HISTORY Problem Relation Age of Onset Diabetes Mother CAD, ANGIOPLASTY Diabetes Father DC other (DC) Brother other (OHS) Sister other (DC) Brother Heart Sister diabetic Heart Sister Heart Sister diabetic Heart Sister diabetic ALLERGIES Allergen Reactions Accupril [Quinapril* Cough Sulfa (Sulfonamide * Hives Atorvastatin Myalgia Benzonatate Hives Gabapentin Other: See Comments fatigue Simvastatin Other: See Comments Current Outpatient Medications Medication Sig Dispense Refill potassium chloride (K-TAB) 10 mEq tablet Take 10 mEq by mouth once daily. isosorbide mononitrate ER (IMDUR) 60 mg 24 hr tablet Take 1 tablet by mouth once daily. 90 tablet 1 sitaGLIPtin phosphate (JANUVIA) 50 mg tablet Take 1 tablet by mouth once daily. 90 tablet 1 furosemide (LASIX) 20 mg tablet Take 2 tablets by mouth once daily. 90 tablet 1 carbamide peroxide (DEBROX) 6.5 % otic solution Use 5 Drops in both ears two times a day for 4 days. 15 mL 0 amLODIPine (NORVASC) 5 mg tablet Take 0.5 tablets by mouth once daily. mecobalamin, vitamin B12, 1,000 mcg chew Take 1 tablet by mouth once daily. acetaminophen (TYLENOL) 500 mg tablet Take 2 tablets by mouth every 8 hours as needed for pain. citalopram (CELEXA) 20 mg tablet Take 1 tablet by mouth once daily. 90 tablet 1 folic acid 1 mg tablet Take 2 tablets by mouth once daily. 180 (more content not included)...[facility]12-08-2023 History of Present illness Narrative* Nimesh Phillips MD - 02/19/2023 11:00 AM EST NEUROSURGERY FOLLOW UP OFFICE NOTE Dr. Nimesh Kinsey. MD Zahra, FACS Date of visit: February 19, 2023 Patient Name: Ms.Esther Toño Ryan Date of : 1935 Current Age: [age] year old Sex: female MRN/E# [id number] Last Office Visit: Hospital follow-up CHIEF COMPLAINT: Patient presents with: Established Patient SUBJECTIVE: The patient presents as a hospital follow-up with imaging (CT B) for evaluation. This is a 87-year-old female with a PMHx of basal cell carcinoma, CAD (3 stents), thyroid goiter, ALEJA, hypercholesterolemia, DM, HTN, on Plavix and aspirin who was seen for consult on 02/06/2023. She was transferred asa trauma from an OSH after a fall at home causing her to land on her left side. Workup at outside hospital demonstrated a left falx subdural hematoma. She was given DDAVP and her blood thinning medications were placed on hold. Once repeat imaging stabilized no surgical intervention was indicated. Recommendation was to continue to hold the Plavix and aspirin and follow-up in 10 days with repeat CTB prompting her visit today. Since discharge she states she is overall doing well. She denies any neurological symptoms since discharge. Denies headache, visual changes, speech deficits, seizure activity, motor or sensory deficits. She presents for image review, evaluation and plan of care. SYMPTOMS: None PREVIOUS CONSERVATIVE TREATMENTS: Tylenol prn SURGICAL RISK: Smoker: No Diabetic: Yes -A1c 7.9% on 12/22/2022 Anticoagulants / Antiplatelets: ASA/Plavix -hold Occupation: N/A PREVIOUS SURGERY: None PAIN EVALUATION No data found in the last 1 encounters. PAST MEDICAL HISTORY Diagnosis Date Basal cell carcinoma Dr. Lambert Cholecystitis, unspecified Chronic kidney disease (CKD), stage IV (severe) (HCC) Dr. Montgomery Coronary atherosclerosis of unspecified type of vessel, tulalip or graft Dr. Davenport Depression Hammertoes of both feet Multinodular goiter 05/21/2016 Osteoarthritis Other and unspecified anemias Pure hypercholesterolemia Sciatica Swelling of lower extremity Type II or unspecified type diabetes mellitus without mention of complication, not stated as uncontrolled Podiatry-Dr. Mcgee Unspecified essential hypertension Unspecified hypothyroidism PAST SURGICAL HISTORY Procedure Laterality Date COLONOSCOPY FLX DX W/COLLJ SPEC WHEN PFRMD 01/30/2005 Colonoscopy COLONOSCOPY FLX DX W/COLLJ SPEC WHEN PFRMD 08/05/2015 Colonoscopy ESOPHAGOGASTRODUODENOSCOPY TRANSORAL DIAGNOSTIC 01/30/2005 EGD HEART CATHETERIZATION 09/2018 angiopasty of circumflex, 75% stenosis. LAD 80%. LAPAROSCOPY SURG CHOLECYSTECTOMY 12/02/2005 Cholecystectomy, lap PAST SURGICAL HISTORY OF hernia PAST SURGICAL HISTORY OF carpal tunnel both hands PAST SURGICAL HISTORY OF fingers different times PAST SURGICAL HISTORY OF trigger finger PAST SURGICAL HISTORY OF 06/21/2006 heart cath with stent placement [facility] PAST SURGICAL HISTORY OF 04/24/2008 vaginal hysterectomy, bladder suspension, rectocele PAST SURGICAL HISTORY OF 11/20/11 cardiac cath; percutaneous transluminal coronary angioplasty with stent @ [facility] PAST SURGICAL HISTORY OF left wrist surgery TOTAL THYROID LOBECTOMY UNI W/WO ISTHMUSECTOMY Right 05/21/2016 TRANSCATH STENT INIT VESSEL,PERCUT 08/18 Transcath stent init vessel percut LAD [place] [facility] FAMILY HISTORY Problem Relation Age of Onset Diabetes Mother CAD, ANGIOPLASTY Diabetes Father DC other (DC) Brother other (OHS) Sister other (DC) Brother Heart Sister diabetic Heart Sister Heart Sister diabetic Heart Sister diabetic ALLERGIES Allergen Reactions Accupril [Quinapril* Cough Sulfa (Sulfonamide * Hives Atorvastatin Myalgia Benzonatate Hives Gabapentin Other: See Comments fatigue Simvastatin Other: See Comments Current Outpatient Medications Medication Sig Dispense Refill potassium chloride (K-TAB) 10 mEq tablet Take 10 mEq by mouth once daily. isosorbide mononitrate ER (IMDUR) 60 mg 24 hr tablet Take 1 tablet by mouth once daily. 90 tablet 1 sitaGLIPtin phosphate (JANUVIA) 50 mg tablet Take 1 tablet by mouth once daily. 90 tablet 1 furosemide (LASIX) 20 mg tablet Take 2 tablets by mouth once daily. 90 tablet 1 carbamide peroxide (DEBROX) 6.5 % otic solution Use 5 Drops in both ears two times a day for 4 days. 15 mL 0 amLODIPine (NORVASC) 5 mg tablet Take 0.5 tablets by mouth once daily. mecobalamin, vitamin B12, 1,000 mcg chew Take 1 tablet by mouth once daily. acetaminophen (TYLENOL) 500 mg tablet Take 2 tablets by mouth every 8 hours as needed for pain. citalopram (CELEXA) 20 mg tablet Take 1 tablet by mouth once daily. 90 tablet 1 folic acid 1 mg tablet Take 2 tablets by mouth once daily. 180 tablet 3 glipiZIDE (GLUCOTROL) 5 mg tablet Take 1 1/2 tablets PO in the morning and 1 tablet PO at night. [address] (PROTONIX) 40 mg tablet Take 1 tablet by mouth daily before breakfast. Take on empty stomach, 1/2 hr before meal. 90 tablet 1 carvedilol (COREG) 25 mg tablet Take 1 tablet by mouth twice daily. 180 tablet 3 pravastatin (PRAVACHOL) 80 mg tablet Take 1 tablet by mouth daily at bedtime. 30 tablet 11 levothyroxine (LEVOXYL) 75 mcg tablet Take 1 tablet by mouth once daily. 90 tablet 3 blood sugar diagnostic (BLOOD GLUCOSE TEST) test strip Prodigy Glucometer Test blood sugar(s) 1 time daily. Dx: Type 2 DM - Controlled E11.9 Insulin: No 50 Strip 11 nitroglycerin sublingual (NITROQUICK) 0.4 mg SL tablet Dissolve 1 tablet under the tongue as needed. DISSOLVE ONE(1) TABLET UNDER THE TOUNGUE NEEDED FOR CHEST PAIN,EVERY 5 MIN X3 25 tablet 1 Lancets lancets Test blood sugar(s) 1 times daily. Dx: Type 2 DM - Controlled E11.9 Insulin: No 100Each 11 COMPOUNDED PRESCRIPTION Prodigy Glucometer test strips Test once daily. Dx: E11.9 Insulin: No 100 Strip 5 Cholecalciferol, Vitamin D3, 1,000 unit cap Take 1 capsule by mouth once daily. 1 capsule 0 COMPOUNDED PRESCRIPTION Lancets Test once daily. Dx: E11.9 Insulin: No 100 Each 0 Cranberry 500 mg cap Take 1 tablet by mouth once daily. 0 XALATAN 0.005 % EYE DROPS one drop each eye at bedtme 0 No current facility-administered medications for this visit. REVIEW OF SYSTEMS: Review of Systems Constitutional: Negative for chills, diaphoresis (Negative for night sweats.) and fever. HENT: Negative for ear discharge and rhinorrhea. Eyes: Negative for discharge. Respiratory: Negative for cough, shortness of breath and wheezing. Cardiovascular: Negative for chest pain, palpitations and leg swelling. Gastrointestinal: Negative for constipation, diarrhea, nausea and vomiting. Endocrine: Negative for cold intolerance and heat intolerance. Genitourinary: Negative for frequency. Negative for urinary incontinence and urinary retention. Musculoskeletal: Positive for gait problem. Negative for back pain, joint swelling, myalgias and neck pain. Skin: Negative for rash (Negative for hives and skin lesions.). Allergic/Immunologic: Negative for environmental allergies and food allergies. Negative for contact allergy, seasonal allergies. Neurological: Negative for dizziness, seizures, syncope, weakness, light- headedness, numbness (Negative for numbness in extremities.) and headaches. Hematological: Does not bruise/bleed easily. Psychiatric/Behavioral: The patient is not nervous/anxious. Negative for depression. OBJECTIVE: BP 122/74 Pulse 82 Resp 16 Ht 4' 11 (1.50m) Wt 151 lb 14.4 oz (68.9kg) SpO2 98% BMI 30.66 kg/(m^2). PHYSICAL EXAM: Mental State : Alert, memory function unremarkable. Attention span and concentration normal for patient's age. Speech normal, no receptive or expressive speech deficit. Recent and remote memory normal. Orientation : Oriented to person, place and time. Higher Cortical Function : Intact speech and language. Spontaneous speech and comprehension normal.Fund of knowledge intact for pt level of education. Cranial Nerves : II: No visual field cut no blurring, Makes and sustains eye contact III, IV, : Normal, no double vision or drooping. Pupils equal and reactive to light. Extraocularmuscles intact. No nystagmus V: Normal sensation on the face, normal jaw movements VII: No paresis on either side VIII: No gross hearing deficit IX: Good and equal shoulder shrugs XII: Tongue midline, no fasciculations Sensory: SILT. Normal Sensation in upper and lower extremities and trunk to touch and noxious stimuli. Motor: Normal muscle tone and bulk. No tremor or uncontrollable movements. No spasticity or tremor. Strength: Upper Extremities : R L Deltoid 5/5 5/5 Biceps 5/5 5/5 Triceps 5/5 5/5 Wrist Ext 5/5 5/5 Wrist Flx 5/5 5/5 Hand Int 5/5 5/5 Lower Extremities : Hip Flexors 5/5 5/5 Hip Extensors 5/5 5/5 Hip Abductors 5/5 5/5 Straight leg Neg Neg Ankle dorsiflex 5/5 5/5 Ankle Plantar 5/5 5/5 Heel Walking intact intact Toe Walking intact intact Reflexes : Biceps 2+ 2+ Triceps 2+ 2+ Wrist 2+ 2+ Patellar 2+ 2+ Achilles 2+ 2+ Donis's Neg Neg Tinel's Neg Neg Phalen's Neg Neg Cerebellar Function : Normal finger to nose. Normal rapid alternating movements. No ataxia. Negative Romberg. Gait and Station: Compensated. Utilizes walker as assistive device . Pulmonary: Lungs without cough, audible wheeze. Respirations unlabored. Cardiac: Regular rate and rhythm. No murmer, gallop or rub. IMAGING: CT brain WO IVCON performed today 02/19/2023 demonstrates: Report is pending I see the resolution of the interhemispheric subdural hematoma. There may either be a very small sliver of residual but it is unusual for it to be stuck to the dura I suspect this may be calcification. There is no evidence of other intracranial bleed or shift. ASSESSMENT/PLAN: 1. Subdural hematoma (HCC) - ICD9: 432.1, ICD10: S06.5XAA Patient had a fall on 06 February 2023 and hit her head and subsequently underwent a CT scan that showed intracranial bleed in the interhemispheric fissure that was stable over serial scans so she was discharged and now she presents for a follow-up visit after a CT scan was done today. She has been symptom free and she has a normal neurological examination. The CT scan is satisfactory with no evidence of new bleeding or change into a chronic subdural hematoma. As the patient had been on aspirinand Plavix that was discontinued after her trauma she can now resume these 2 medications if deemed necessary by her manager transfusion. Nimesh Phillips MD FOLLOW UP: Return for new or worsening symptoms. Please Note: This note has been partially generated using [employer], a speech recognition software program, and may contain errors including punctuation, grammar, spelling, gender, and inappropriate words or phrases that pertain to the system. documented in this encounterMer[facility]12-05-2023 Miscellaneous Notes* Telephone Encounter - Trina Moore LPN - 02/16/2023 2:47 PM EST Updated patient's daughter in law with results. She voiced understanding and will review with patient. * Telephone Encounter - Trina Moore LPN - 02/16/2023 2:47 PM EST ----- Message from Frank Fuentes MD sent at 02/16/2023 2:35 PM EST ----- Patient's chest xray shows enlarged heart, but is otherwise stable without signs of fluid overload or infection. documented in this encounterMercy Health Allen Hospital12-05-2023 Miscellaneous Notes* Telephone Encounter - Trina Moore LPN - 02/16/2023 2:35 PM EST Phoned patient's daughter in law Anaya and reviewed provider's message with her. She voiced understanding and will reschedule cardio appt to sooner for patient. * Telephone Encounter - Frank Fuentes MD - 02/16/2023 1:36 PM EST She needs earlier appointment with cardiology since she was just in the hospital last month for CHFexacerbation. CXR has not come back yet. Will call when it does. * Telephone Encounter - Va Goodman RN - 02/16/2023 1:19 PM EST Images from the original note were not included. Patient and [id number] Anaya notified of provider's message as copied below. Anaya asking: Patient has appt with [facility] on 03/25/23. Asking if this date is ok, or if pt needs seen sooner? Anaya asking if provider will advise on pt's recent chest xray result from yesterday as well? Call Anaya at [phone], thank you. (COPIED) Result Notes Frank Fuentes MD 02/16/2023 10:03 AM EST Blood work shows improving anemia without infection, stable CKD in stage IIIb range, and signs of CHF exacerbation with BNP over 4,000. Recommend she continue lasix 40 mg daily, adhere to low sodium diet <2,000 mg daily, check daily weights as discussed, and follow up with manager transfusion LINDA. documented in this encounterMercy Health Allen Hospital12-05-2023 History of Present illness Narrative* Brittany Mayo RN - 02/16/2023 10:32 AM EST TRANSITION CARE MANAGEMENT (TCM) FOLLOW-UP NOTE Provider Action/FYI: TCM Chart review. Pt had PCP f/u yesterday (02/15/23) (Note was note complete at the time of this note) Appointments for Next 60 Days Date Time Provider Location Dept Phone 02/19/2023 10:[address] [facility] [phone] 02/19/2023 11:00 AM NIMESH PHILLIPS [facility] [phone] 03/02/2023 9:00 AM FRANK FUENTES [facility] [place] [phone] 03/05/2023 1:20 PM [facility] [place] [phone] 03/24/2023 2:00 PM [facility] [phone] Discharge Network Status: In-Network Discharge Summary: discharged from [facility] on 02/08/23. Admitted for: Subdural hematoma 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 plan for next outreach: No further follow up needed at this time ELAN Education Ordered -: No Signature Brittany Mayo RN February 16, 2023 documented in this encounterMercy Health Allen Hospital12-04-2023 History of Present illness Narrative* Elisha Velasquez RT(R) - 02/15/2023 4:30 PM EST Radiology Service Progress Note PATIENT NAME: Neelam Ryan DATE OF SERVICE: February 15, 2023 TIME: 4:33 PM PATIENT IDENTITY VERIFICATION COMPLETED USING TWO (2) IDENTIFIERS: Name and Date of confirmedby patient verbally. FALL SCREENING: Has the patient had 2 falls in the last year or 1 fall with injury or currently using an Ambulatory Assistive Device (Walker, Cane, Wheelchair, Crutches, etc.)? Yes, Patient High Riskfor Falls What interventions were put in place to prevent falls during this visit? Offered Assistance with Transfers/Clothing and Instructed Patient to Remain Seated (Not on Exam Table) Until Exam PATIENT GENDER DATA: Female. status: : No status: NO. PATIENT RELEVANT IMPLANT DATA REVIEWED: Not Applicable RADIOLOGY DEPARTMENT: General X-ray: Exam(s) Completed: Chest X-Ray PERIPHERAL IV DATA: Not applicable SIGNED BY: RT Jagdeep(R) February 15, 2023 4:33 PM documented in this encounterMercy Health Allen Hospital12-04-2023 Instructions* Patient Instructions* Frank Fuentes MD - 02/15/2023 4:03 PM EST Look into getting fall alert device and wear daily. Please check your blood pressure at home at least 4-5 times per week and call if you feel dehydrated, lightheaded, or if less than 100/60. documented in this encounterMercy Health Allen Hospital12-04-2023 History of Present illness Narrative* Frank Fuentes MD - 02/15/2023 3:28 PM EST Chief Complaint Patient presents with: Transition Of Care: Patient reports occasional DUNLAP that tylenol helps with HPI Neelam Ryan is a 87 year old female who presents here today for Hospital Discharge Follow up/TCM. Accompanied today by daughter in law Julien. Patient admitted to [facility] for subdural hematoma after a fall with following Hospital course: Ms. Neelam Ryan presented to [facility] as a transfer from [facility] on 02/05/2023 for treatment of injuries sustained during a reported fall. CT imaging revealed a small subdural hematoma (brain bleed) along the falx. She was noted to on Plavix which was reversed with DDAVP due to elevated bleeding risk associated with her brain injury. She was admitted to close neurological monitoring. Neurosurgery was consulted and recommended non-surgical management of her brain injury. Repeat CT scan of her natalia completed on 02/06/2023 remained stable. Her blood sodium was noted to be low on 02/08/2023 at 129 from normal range of 136 the day prior. Recheck of her sodium was also 129. Her hyponatremia was likely attributable to DDAVP administration for Plavix reversal. She was started on a short-course of salt tablets with instruction to have follow-up labs completed 1 week after discharge. Ms. Ryan was evaluated by physical therapy who recommended home at discharge. She was discharged in stable condition on 02/08/2023. She would require outpatient follow-up care with her treating neurosurgeon 10-days after discharge with repeat CT imaging of her brain. She is to avoid taking blood thinners such as aspirin or Plavix until cleared to resume by her treating neurosurgeon. It was also recommended that she follow-up closely with her primary care physician for further long-term medical care. Since discharge, patient has not had any recurrent falls and has been using walker for ambulation. Living alone without fall alert device. BP low today on initial check. Denies lightheadedness/dizziness. Has not checked BP at home. Recently had her Lasix increased from 20 to 40 mg daily due to CHF exacerbation which she was admitted for on 01/28 to 01/31 at [facility]. Has f/u with cardiology in Dr. Davenport. BMP ordered on discharge and is pending for completion today. Patient has follow up appointment with neurosurgery scheduled on 02/19 for repeat imaging. Eating 3 meals per day and is able to perform ADLs. Has not had much of an appetite. Would like ears checked today. Having hard time hearing with hearing aids in. Past medical history, appointments, medications, allergies reviewed. Previous Medical History PAST MEDICAL HISTORY Diagnosis Date Basal cell carcinoma Dr. Lambert Cholecystitis, unspecified Chronic kidney disease (CKD), stage IV (severe) ([facility]) Dr. Montgomery Coronary atherosclerosis of unspecified type of vessel, tulalip or graft Dr. Daevnport Depression Hammertoes of both feet Multinodular goiter 05/21/2016 Osteoarthritis Other and unspecified anemias Pure hypercholesterolemia Sciatica Swelling of lower extremity Type II or unspecified type diabetes mellitus without mention of complication, not stated as uncontrolled Podiatry-Dr. Mcgee Unspecified essential hypertension Unspecified hypothyroidism Previous Surgical History PAST SURGICAL HISTORY Procedure Laterality Date COLONOSCOPY FLX DX W/COLLJ SPEC WHEN PFRMD 01/30/2005 Colonoscopy COLONOSCOPY FLX DX W/COLLJ SPEC WHEN PFRMD 08/05/2015 Colonoscopy ESOPHAGOGASTRODUODENOSCOPY TRANSORAL DIAGNOSTIC 01/30/2005 EGD HEART CATHETERIZATION 09/2018 angiopasty of circumflex, 75% stenosis. LAD 80%. LAPAROSCOPY SURG CHOLECYSTECTOMY 12/02/2005 Cholecystectomy, lap PAST SURGICAL HISTORY OF hernia PAST SURGICAL HISTORY OF carpal tunnel both hands PAST SURGICAL HISTORY OF fingers different times PAST SURGICAL HISTORY OF trigger finger PAST SURGICAL HISTORY OF 06/21/2006 heart cath with stent placement [facility] PAST SURGICAL HISTORY OF 04/24/2008 vaginal hysterectomy, bladder suspension, rectocele PAST SURGICAL HISTORY OF 11/20/11 cardiac cath; percutaneous transluminal coronary angioplasty with stent @ [facility] PAST SURGICAL HISTORY OF left wrist surgery TOTAL THYROID LOBECTOMY UNI W/WO ISTHMUSECTOMY Right 05/21/2016 TRANSCATH STENT INIT VESSEL,PERCUT 08/18 Transcath stent init vessel percut LAD [place] [facility] Family History FAMILY HISTORY Problem Relation Age of Onset Diabetes Mother CAD, ANGIOPLASTY Diabetes Father DC other (DC) Brother other (OHS) Sister other (DC) Brother Heart Sister diabetic Heart Sister Heart Sister diabetic Heart Sister diabetic Patient Allergies ALLERGIES Allergen Reactions Accupril [Quinapril* Cough Sulfa (Sulfonamide * Hives Atorvastatin Myalgia Benzonatate Hives Gabapentin Other: See Comments fatigue Simvastatin Other: See Comments Current Medications Current Outpatient Medications on File Prior to Visit Medication Sig potassium chloride (K-TAB) 10 mEq tablet Take 10 mEq by mouth once daily. mecobalamin, vitamin B12, 1,000 mcg chew Take 1 tablet by mouth once daily. acetaminophen (TYLENOL) 500 mg tablet Take 2 tablets by mouth every 8 hours as needed for pain. citalopram (CELEXA) 20 mg tablet Take 1 tablet by mouth once daily. folic acid 1 mg tablet Take 2 tablets by mouth once daily. amLODIPine (NORVASC) 5 mg tablet Take 1 tablet by mouth once daily. isosorbide mononitrate ER (IMDUR) 60 mg 24 hr tablet Take 1 tablet by mouth once daily. glipiZIDE (GLUCOTROL) 5 mg tablet Take 1 1/2 tablets PO in the morning and 1 tablet PO at night. pantoprazole DR (PROTONIX) 40 mg tablet Take 1 tablet by mouth daily before breakfast. Take on empty stomach, 1/2 hr before meal. furosemide (LASIX) 20 mg tablet Take 1 tablet by mouth once daily. carvedilol (COREG) 25 mg tablet Take 1 tablet by mouth twice daily. pravastatin (PRAVACHOL) 80 mg tablet Take 1 tablet by mouth daily at bedtime. levothyroxine (LEVOXYL) 75 mcg tablet Take 1 tablet by mouth once daily. SITagliptin phosphate (JANUVIA) 50 mg tablet Take 1 tablet by mouth once daily. blood sugar diagnostic (BLOOD GLUCOSE TEST) test strip Prodigy Glucometer Test blood sugar(s) 1 time daily. Dx: Type 2 DM - Controlled E11.9 Insulin: No nitroglycerin sublingual (NITROQUICK) 0.4 mg SL tablet Dissolve 1 tablet under the tongue as needed. DISSOLVE ONE(1) TABLET UNDER THE TOUNGUE NEEDED FOR CHEST PAIN,EVERY 5 MIN X3 Cholecalciferol, Vitamin D3, 1,000 unit cap Take 1 capsule by mouth once daily. Cranberry 500 mg cap Take 1 tablet by mouth once daily. XALATAN 0.005 % EYE DROPS one drop each eye at bedtme Lancets lancets Test blood sugar(s) 1 times daily. Dx: Type 2 DM - Controlled E11.9 Insulin: No COMPOUNDED PRESCRIPTION Prodigy Glucometer test strips Test once daily. Dx: E11.9 Insulin: No COMPOUNDED PRESCRIPTION Lancets Test once daily. Dx: E11.9 Insulin: No No current facility-administered medications on file prior to visit. Social History Social History Tobacco Use Smoking status: Never Smokeless tobacco: Never Vaping Use Vaping Use: Never used Substance Use Topics Alcohol use: No Drug use: No Review of Symptoms REVIEW OF SYSTEMS GENERAL: No weight loss, malaise or fevers RESPIRATORY: Negative for cough, hemoptysis, wheezing, COPD, dyspnea or shortness of breath CARDIOVASCULAR: Negative for chest pain, leg swelling, hypertension, CHF or palpitations GI: No nausea, vomiting, or diarrhea SKIN: Negative for lesions, rash, and itching EXAM: BP 110/56 Pulse 79 Resp 16 Wt 69.2 kg (152 lb 9.6 oz) SpO2 95% BMI 30.82 kg/m General Appearance: Well appearing, alert, in no acute distress, well-hydrated, well nourished.. Skin: Skin color, texture, turgor normal, no suspicious rashes or lesions. Head: Normocephalic, no masses, lesions, tenderness or abnormalities. Ears: External ears normal, canals clear. Neck: Supple, no adenopathy; thyroid symmetric, normal size, no bruits. Lungs: rales in bases bilaterally without consolidation, rhonchi or wheezing. Heart: RRR without murmur, gallop, or rubs. No ectopy. Abdomen: Normal abdominal exam, Abdomen soft, non-tender. Bowel sounds normal. No masses, organomegaly. Extremities: Edema: trace edema to mid leyva bilaterally. Health Maintenance List RSV Vaccine(1 - 1-dose 60+ series) Never done Advance Directive Discussion Never done Shingrix Vaccine(1 of 2) due on 12/23/2023 Diabetic Foot Exam due on 05/14/2023 Urine Albumin:Creatinine Ratio due on 06/23/2023 LDL Cholesterol due on 06/23/2023 HbA1C due on 06/23/2023 Dilated Retinal Exam due on 01/05/2024 DTaP,Tdap,Td Vaccine(6 - Td or Tdap) due on 06/22/2032 Bone Density Screening Completed Influenza Vaccine Completed Covid-19 Vaccine Completed Pneumococcal Vaccine: 65+ Completed ASSESSMENT/PLAN: 1. Subdural hematoma (HCC) - ICD9: 432.1, ICD10: S06.5XAA (primary diagnosis) Patient without recurrent falls or symptoms of worsening bleed. Avoid NSAIDs and f/u with neurosurgery on Wednesday as scheduled. Red flags for re-assessment reviewed with patient in detail. - CBC + DIFF - COMP METABOLIC PANEL 2. Fall in home, subsequent encounter - ICD9: V58.89, E888.9, ICD10: W19.XXXD, Y92.009 Discussed dangers of recurrent falls. Reocmmended use of walker for ambulation. Should not be driving until cleared by neurosurgery. Discussed fall alert device for home which she will consider. Refusing PT. 3. Acute on chronic diastolic congestive heart failure (HCC) - ICD9: 428.33, 428.0, ICD10: I50.33 Patient with signs of mild CHF on exam today with trace edema in LE and rales in her lung bases. Obtain labs and imaging as ordered. Continue lasix 40 mg daily and f/u with cardiology LINDA. Discussedlow sodium diet and avoidance of NSAIDs. Red flags for re-assessment reviewed with patient in detail. - XR CHEST 2V FRONTAL/LAT - NT PRO BNP - CBC + DIFF - COMP METABOLIC PANEL 4. Bilateral rales - ICD9: 786.7, ICD10: R09.89 See above. 5. Bilateral impacted cerumen - ICD9: 380.4, ICD10: H61.23 Given rx for debrox drops for home. Use BID for 4 days as discussed. Call if wax does not drain andwould have her return for irrigation. 6. Hospital discharge follow-up - ICD9: V67.59, ICD10: Z09 See above. Frank Fuentes MD documented in this encounterMercy Health [facility] Hospital11-29-2023 Miscellaneous Notes* Telephone Encounter - Edel Paredes LPN - 02/10/2023 7:37 PM EST Patient rescheduled for WednesdayFeb 15 at 320pm. Edel Paredes LPN * Telephone Encounter - Edel Paredes LPN - 02/10/2023 9:05 AM EST Patient telephoned, call was dropped shortly after patient answered. When tried calling back it nowrings busy. If/when patient calls back she needs to reschedule her Monday 02/[address] Fuentes. Provider is requesting a 40 minute appointment. Edel Paredes LPN documented in this encounterMercy Health [facility] Hospital11-28-2023 History of Present illness Narrative* Sarah Hawkins RPh - 02/09/2023 8:29 AM EST TRANSITION CARE MANAGEMENT (TCM) PHARMACY CONTACT Provider Action/FYI: TCM Medication Reconciliation partially completed for patient. See medication list table below for details. Medications discussed per patient preference outlined in bold in table below. Initial contact with patient post discharge, spoke to patient, and verified that any applicable caregiver is active in patient's medical care. Patient identified by name and . Summary: -Pt discharged from [facility] on 02/08/23. -Medication review done: Partial medication review completed - per patient preference Patient Concerns: Patient states her son helped spanish moss picker and set up her medications. Patient states pain is well controlled with acetaminophen, but has oxycodone available if pain worsens. Patient declined full medication list. Offered to call son to review medications and patient declined. History of Present Illness: The following content has been copied and pasted from patient's discharge summary. If discharge summary unavailable, After Visit Summary or last pertinent inpatient notes are copied and pasted. Ms. Neelam Ryan presented to [facility] as a transfer from [facility] on 02/05/2023 for treatment of injuries sustained during a reported fall. CT imaging revealed a small subdural hematoma (brain bleed) along the falx. She was noted to on Plavix which was reversed with DDAVP due to elevated bleeding risk associated with her brain injury. She was admitted to close neurological monitoring. Neurosurgery was consulted and recommended non-surgical management of her brain injury. Repeat CT scanof her natalia completed on 02/06/2023 remained stable. Her blood sodium was noted to be low on 02/08/2023 at 129 from normal range of 136 the day prior. Recheck of her sodium was also 129. Her hyponatremia was likely attributable to DDAVP administration for Plavix reversal. She was started on a short-course of salt tablets with instruction to have follow-up labs completed 1 week after discharge. Ms. Ryan was evaluated by physical therapy who recommended home at discharge. She was discharged in stable condition on 02/08/2023. She would require outpatient follow-up care with her treating neurosurgeon 10-days after discharge with repeat CT imaging of her brain. She is to avoid taking blood thinners such as aspirin or Plavix until cleared to resume by her treating neurosurgeon. It was alsorecommended that she follow-up closely with her primary care physician for further long-term medical care. Medication Reconciliation: Legend: Stopped, New, Changed, Added to list Medication List Medication Directions Comments Action/Plan acetaminophen (TYLENOL) 500 mg tablet Take 2 tablets by mouth every 8 hours as needed for pain. PRN amLODIPine (NORVASC) 5 mg tablet Take 1 tablet by mouth once daily. Last 3 Encounter BP Readings: Date: BP: 02/06/2023 121/59 12/22/2022 130/70 09/22/2022 120/56 blood sugar diagnostic (BLOOD GLUCOSE TEST) test strip Prodigy Glucometer Test blood sugar(s) 1 time daily. Dx: Type 2 DM - Controlled E11.9 Insulin: No carvedilol (COREG) 25 mg tablet Take 1 tablet by mouth twice daily. Last 3 Encounter BP Readings: Date: BP: 02/06/2023 121/59 12/22/2022 130/70 09/22/2022 120/56 Cholecalciferol, Vitamin D3, 1,000 unit cap Take 1 capsule by mouth once daily. citalopram (CELEXA) 20 mg tablet Take 1 tablet by mouth once daily. COMPOUNDED PRESCRIPTION Lancets Test once daily. Dx: E11.9 Insulin: No COMPOUNDED PRESCRIPTION Prodigy Glucometer test strips Test once daily. Dx: E11.9 Insulin: No Cranberry 500 mg cap Take 1 tablet by mouth once daily. folic acid 1 mg tablet Take 2 tablets by mouth once daily. furosemide (LASIX) 20 mg tablet Take 1 tablet by mouth once daily. Last 3 Encounter BP Readings: Date: BP: 02/06/2023 121/59 12/22/2022 130/70 09/22/2022 120/56 Potassium Date Value Ref Range Status 02/08/2023 3.9 3.7 - 5.1 mmol/L Final glipiZIDE (GLUCOTROL) 5 mg tablet Take 1 1/2 tablets PO in the morning and 1 tablet PO at night. isosorbide mononitrate ER (IMDUR) 60 mg 24 hr tablet Take 1 tablet by mouth once daily. Last 3 Encounter BP Readings: Date: BP: 02/06/2023 121/59 12/22/2022 130/70 09/22/2022 120/56 Lancets lancets Test blood sugar(s) 1 times daily. Dx: Type 2 DM - Controlled E11.9 Insulin: No levothyroxine (LEVOXYL) 75 mcg tablet Take 1 tablet by mouth once daily. TSH Date Value Ref Range Status 12/22/2022 2.220 0.270 - 4.200 mIU/L Final mecobalamin, vitamin B12, 1,000 mcg chew Take by mouth. nitroglycerin sublingual (NITROQUICK) 0.4 mg SL tablet Dissolve 1 tablet under the tongue as needed. DISSOLVE ONE(1) TABLET UNDER THE TOUNGUE NEEDED FOR CHEST PAIN,EVERY 5 MIN X3 oxyCODONE IR (ROXICODONE) 5 mg immediate release tablet Take 0.5-1 tablets by mouth every 8 hours as needed for pain for up to [address] (PROTONIX) 40 mg tablet Take 1 tablet by mouth daily before breakfast. Take on empty stomach, 1/2 hr before meal. pravastatin (PRAVACHOL) 80 mg tablet Take 1 tablet by mouth daily at bedtime. senna-docusate (SENNA-S) 8.6-50 mg per tablet Take 1 tablet by mouth two times a day for 3 days. Taking as prescribed without any issues SITagliptin phosphate (JANUVIA) 50 mg tablet Take 1 tablet by mouth once daily. sodium chloride 1 gram tab Take 1 tablet by mouth three times a day for 8 doses. Sodium Date Value Ref Range Status 02/08/2023 129 (L) 136 - 144 mmol/L Final 02/08/2023 129 (L) 136 - 144 mmol/L Final 02/07/2023 136 136 - 144 mmol/L Final Taking as prescribed without any issues XALATAN 0.005 % EYE DROPS one drop each eye at [facility] pharmacy: [facility] [address] [place], [place] [id number] - [address] [place] [address] - [phone] [id number] [facility] [address] [facility] 1 [facility] [address] CrCl cannot be calculated (Unknown ideal weight.). Estimated Glomerular Filtration Rate (mL/min/1.73m ) Date Value 02/08/2023 35 (L) eGFR- (no units) Date Value 12/12/2020 31 Additional follow up: Next 5 Appointments Date and Time Provider Department Dept Phone 02/19/2023 10:[address] [facility] [phone] 02/19/2023 11:00 AM Nimesh Phillips [facility] [phone] 03/05/2023 1:20 PM [facility] [phone] 03/24/2023 2:00 PM Frank Fuentes [facility] [phone] Interventions Made: Patient education/Medication counseling Pharmacist Recommendations Made None Care Coordination: None at this time Time spent on patient: 30-45 minutes Sarah Hawkins RPh February 09, 2023 8:30 AM [facility]23 NoteHNO ID: [id number] Author: Leandro Amador PA-C Service: General Surgery Author Type: Physician Supply Chain Design Manager Type: Progress Notes Filed: 02/09/2023 7:55 AM Note Text: Documentation Query Based on your medical judgment of the clinical indicators outlined below, please clarify the condition: (Please type X next to your response and sign) Clinical Indicators: ED provider She has a past medical history of coronary artery disease on Plavix and aspirin. 02/06 plan of care DDAVP given for being on Plavix and Aspirin Repeat CTH shows increased L falx SDH, no mass effect.Plan to repeat CTH in 6 hrs.Continue q1hr neuro exams. D/c summary She is to avoid taking blood thinners such as aspirin or Plavix until cleared to resume by her treating neurosurgeon. Please clarify the diagnosis associated with the above clinical indicators coagulopathy due to circulating anticoagulants: aspirin and plavix No associated coagulopathy due to aspirin and plavix x Other, please specify No history of coagulopathy [facility]11-27-2023 NoteHNO ID: [id number] Author: David Almonte APRN.CAR REFINISHER Service: Neurosurgery Author Type: Nurse Practitioner Type: Plan of Care Filed: 02/08/2023 12:16 PM Note Text: Neurosurgery Plan of Care Follow up in 10 days requested. Recommend holding all anticoagulants and antiplatelets until seen in neurosurgery office. Please see attestation by Dr Phillips for disposition recommendations. Neurosurgery will sign off at this time. Please call with questions or concerns. David Almonte APRN CAR REFINISHER Pager: [phone]11-27-2023 NoteHNO ID: [id number] Author: Amy Will RN Service: Care Management Author Type: Registered Nurse Type: Care Mgt Progress Note Filed: 02/08/2023 12:03 PM Note Text: CARE MANAGEMENT PROGRESS NOTE SERVICE DATE: 02/08/2023 SERVICE TIME: 12:03 PM LOS: 2 days IMM Follow Up Copy Given: Yes Copy given to:: Patient Method: In Person SIGNATURE: Amy Will RN PATIENT NAME: Neelam Ryan DATE: February 08, 2023 TIME: 12:03 PM PAGER/CONTACT #: [phone] [facility] Center11-27-2023 NoteHNO ID: [id number] Author: Amy Will RN Service: Care Management Author Type: Registered Nurse Type: Care Mgt Initial Assessment Filed: 02/08/2023 12:02 PM Note Text: CARE MANAGEMENT: ASSESSMENT AND DISCHARGE PLAN SERVICE DATE: February 08, 2023 SERVICE TIME: 12:01 PM PCP: Frank Fuentes MD Primary Contact: Extended Emergency Contact Information Primary Emergency Contact: Jasmin Ibarra Mobile Relation: Daughter Secondary Emergency Contact: Connor,Scott Address: [place] Relation: Son Admission Status: Inpatient Insurance Provider: MEDICARE A AND B Discharge Planning requested by: Per Department Practice Potential Transition Plans Home Advance Directives Current Advance Directive: None Director Style Attempted to Assist with AD Completion: Yes Action: Education Provided Current Living Arrangements and Support Lives with: Alone Type of Residence: Private Residence (House) Support: Children, Friends/neighbors How do you manage to accomplish the following: Independent: Ambulation;Bathe/Shower;Dress;Meals/Meal Prep;Going to the bathroom;Medication Management;Transportation to appointments/community Current Services/Equipment Current Post-Acute Service(s): DME Current DME Type: Walker, Cane Discharge Planning Patient Goal(s): Less pain, General wellness [place] Explained: [place] Given: No Reason Not Given: No placements necessary Are you interested in bedside delivery of your medications? Yes Discharge Planning Participant(s): Patient Patient/Family Comments: Caregiver Assessment: Caregiver is ready, willing and able to meet the patient's needs as recommended by the inter-professional team: No Caregiver needed Transport at Discharge: Transportation Arrangements: Car Needs Prior to Discharge: Needs Prior to Discharge: None Post-Acute Discharge Plan: Patient is a 87 year old female s/p GLF on plavix on 02/06. Patient was alert, oriented and on RA. She lives at home alone and is independent with ADLs. Her son, daughter and neighbor assist her with anything she needs. She uses a walker to ambulate and drove her self to appointments. At this time patient does not have any skilled needs and her family can transport her home at dc. SIGNATURE: Amy Will RN PATIENT NAME: Neelam Ryan DATE: February 08, 2023 TIME: 12:01 PM CONTACT #: [id number] [facility] Center11-27-2023 Note HNO ID: [id number] Author: Leandro Amador PA-C Service: General Surgery Author Type: Physician Supply Chain Design Manager Type: Progress Notes Filed: 02/08/2023 12:09 PM Note Text: Trauma Surgery Progress Note SERVICE DATE: 02/08/2023 Trauma Service Pager: For questions or concerns Mon-Fri 6a-5p please page [phone]. After 5pm and on Weekends and Holidays, please page [phone] if in ICU or [phone] if on RNF. SUBJECTIVE: NAEON. Patient seen and examined this morning. Denies DUNLAP or visual changes. No new focal concerns. Tolerating diet. Hopeful for discharge home soon. OBJECTIVE: Vitals: Temp (24hrs), Av.8 ?C (98.3 ?F), Min:36.6 ?C (97.9 ?F), Max:37.2 ?C (99 ?F) BP 113/53 Pulse 73 Temp 36.8 ?C (98.2 ?F) (Oral) Resp 16 Ht 149.9 cm (4' 11) Wt 71.8 kg (158 lb 4.6 oz) SpO2 92% BMI 31.97 kg/m? O2 Therapy: Room Air IANDO: Date 02/07/23699 - 02/08/23 0659 02/08/23 07 - 02/09/23 0659 Shift 7268-0068 4671-5707 3779-2005 24 Hour Total 8962-3952 7926-9191 4789-8463 24 Hour Total INTAKE IV 500 500 Volume (mL) (NaCl 0.9% 500 mL iv bolus) 500 500 Shift Total 500 500 OUTPUT Urine 170 50 300 520 Urine Not Saved. 1 x 1 x Output ( External Collection Device 02/06/23 0227 [facility]) 170 50 300 520 Shift Total 170 50 300 520 Weight (kg) 70.8 70.8 71.8 71.8 71.8 71.8 71.8 71.8 MEDICATIONS: Current Facility-Administered Medications Medication Dose Route Frequency sodium chloride 1 g tab(s) 1 g ORAL TID NaCl 0.9% iv flush bag 20 mL INTRAVENOUS PRN levothyroxine 75 mcg tab(s) (SYNTHROID) 75 mcg ORAL BEFORE BREAKFAST DAILY pravastatin 80 mg tab(s) (PRAVACHOL) 80 mg ORAL AT BEDTIME carvedilol 25 mg tab(s) (COREG) 25 mg ORAL BID w MEALS pantoprazole DR 40 mg tab(s) (PROTONIX) 40 mg ORAL BEFORE BREAKFAST DAILY folic acid 2 mg tab(s) 2 mg ORAL DAILY citalopram 20 mg tab(s) (CeleXA) 20 mg ORAL DAILY amLODIPine 5 mg tab(s) (NORVASC) 5 mg ORAL DAILY ondansetron 4 mg tab(s) (ZOFRAN) 4 mg ORAL q 6 H PRN Or ondansetron (PF) 4 mg injection (ZOFRAN) 4 mg INTRAVENOUS q 6 H PRN acetaminophen 1,000 mg tab(s) (TYLENOL) 1,000 mg ORAL QID dextrose 15 gram/32 mL 15 g (TRUEPLUS) 15 g ORAL PRN Or glucagon 1 mg injection 1 mg INTRAMUSCULAR PRN Or dextrose 10% iv bolus 12.5 g INTRAVENOUS PRN oxyCODONE IR 2.5-5 mg tab(s) (ROXICODONE) 2.5-5 mg ORAL q 6 H PRN insulin lispro injection (rapid acting) (ADMElog) SUBCUTANEOUS w MEALS AND HS Labs: Recent Labs 02/08/23 1133 02/08/23 0341 02/07/23 0339 02/06/23 0444 NA 129* 129* 136 136 K -- 3.9 3.9 4.4 CHLOR -- 93* 99 95* CO2 -- 24 23 25 BUN -- 51* 50* 59* CREAT -- 1.44* 1.38* 1.61* GLUC -- 97 100* 156* ANION -- 12 14 16 CA -- 9.6 9.8 10.2 MG -- -- -- 1.7 P -- -- -- 3.1 WBC -- 12.14* 13.72* 14.78* HB -- 8.6* 8.3* 9.3* HCT -- 25.2* 24.8* 27.0* PLT -- 436* 441* 548* PHYSICAL EXAM: Genl: Appears age appropriate. No acute distress. Resting comfortably. Head/Face: Normocephalic. Atraumatic Eyes: EOMI. PERRLA. Sclera not icteric, not injected Resp: Lungs CTAB. No wheezes, rales or rhonchi. Respiratory status stable on RA. CVS: RRR as above. 2+ RA, DP, PT pulses bilaterally. GI: Abdomen is soft, non-tender, non-distended. No guarding or peritoneal signs. MSK: No gross deformities. No clubbing, cyanosis or edema. Normal AROM x 4. Skin: Warm and dry. Not jaundiced. Neuro: AANDOx3. Strength and sensation grossly intact in all extremities. GARCIA. GCS15. Psych: Normal mood. Normal affect. Appropriate insight into current situation. ASSESSMENT AND PLAN: Assessment Active Hospital Problems Diagnosis Date Noted Subdural hematoma (HCC) 02/06/2023 Fall 02/08/2023 Assessment: 87 year old female s/p mechanical GLF on 02/05/2023 on Plavix (Transfer from [place]) Imaging performed: 02/05/2023 - CT HN, XR R wrist, PXR, XR L hip (completed at [place]) 02/06/2023 - repeat CTH, CXR Traumatic Injuries: Small subdural hematoma localized to the left side of the falx Operations/Procedures: 1. None Care Plan: Small SDH Neurosurgery consulted Plavix reversed with DDAVP Non-operative management Repeat CT brain stable on 02/06/2023 Hold chemo ppx home aspirin and Plavix Neuro checks q4hrs Follow-up with Dr. Phillips in 10 days Hyponatremia Na+ 129 from 136 this morning Repeat Na+ 129 Likely from DDAVP administration Start salt tab 1G tid x 3 days Repeat BMP in 1 week Patient remains asymptomatic H/O CKD Cr 1.44 from 1.38 from 1.61 Unsure of baseline Follow-up with PCP at discharge Continue home medications as ordered Current diet order: DIET REGULAR Pain regimen: Scheduled Tylenol; prn oxycodone Bowel regimen: Senna-S Labs: As above PPX: DVT: Chemo ppx held in lieu of SDH; SCDs; Mobilize Ulcer: Protonix Vit D level if > 65 yo: Pending Consulted Services: Trauma Neurosurgery PT/OT Dispo Planning: PT/OT recs Home. Case management follow (more content not included)...[facility]11-26-2023 NoteHNO ID: [id number] Author: Kyle Franz DO Service: General Surgery Author Type: Resident Type: Progress Notes Filed: 02/07/2023 8:58 AM Note Text: Attestation signed by Vimal Brice MD at 02/07/2023 12:42 PM I personally saw and examined the patient on 02/07/23. I reviewed the resident's note. I agree with the resident's assessment and plan unless otherwise noted. Vimal Brice MD Trauma Surgery Progress Note SERVICE DATE: 02/07/2023 Trauma Service Pager: For questions or concerns Mon-Fri 6a-5p please page [phone]. After 5pm and on Weekends and Holidays, please page [phone] if in ICU or [phone] if on RNF. SUBJECTIVE: NAEON. Up to chair this AM. Pain well controlled on current regimen. Having good UOP and bowel function. Tolerating a diet. OBJECTIVE: Vitals: Temp (24hrs), Av.8 ?C (98.2 ?F), Min:36.6 ?C (97.9 ?F), Max:37 ?C (98.6 ?F) BP 112/51 Pulse 100 Temp 36.9 ?C (98.4 ?F) (Oral) Resp 18 Ht 149.9 cm (4' 11) Wt 70.8 kg (156 lb 1.4 oz) SpO2 92% BMI 31.53 kg/m? O2 Therapy: Room Air IANDO: Date 02/06/23699 - 02/07/2359 02/07/23699 - 02/08/23 0659 Shift 6898-4145 5443-0835 2893-5501 24 Hour Total 8740-6270 4782-4651 2306-8716 24 Hour Total INTAKE PO 300 300 PO 300 300 IV 850 850 Volume (mL) (NaCl 0.9% 500 mL iv bolus) 400 400 Volume (mL) (NaCl 0.9% iv infusion) 450 450 Shift Total 759 835 9846 OUTPUT Urine 1200 1200 Output ( External Collection Device 02/06/23 0227 [facility]) 1200 1200 # of BMs Number of BMs 0 x 0 x Shift Total 1200 1200 Weight (kg) 65.5 65.5 70.8 70.8 70.8 70.8 70.8 70.8 MEDICATIONS: Current Facility-Administered Medications Medication Dose Route Frequency NaCl 0.9% iv flush bag 20 mL INTRAVENOUS PRN levothyroxine 75 mcg tab(s) (SYNTHROID) 75 mcg ORAL BEFORE BREAKFAST DAILY pravastatin 80 mg tab(s) (PRAVACHOL) 80 mg ORAL AT BEDTIME carvedilol 25 mg tab(s) (COREG) 25 mg ORAL BID w MEALS pantoprazole DR 40 mg tab(s) (PROTONIX) 40 mg ORAL BEFORE BREAKFAST DAILY folic acid 2 mg tab(s) 2 mg ORAL DAILY citalopram 20 mg tab(s) (CeleXA) 20 mg ORAL DAILY amLODIPine 5 mg tab(s) (NORVASC) 5 mg ORAL DAILY ondansetron 4 mg tab(s) (ZOFRAN) 4 mg ORAL q 6 H PRN Or ondansetron (PF) 4 mg injection (ZOFRAN) 4 mg INTRAVENOUS q 6 H PRN acetaminophen 1,000 mg tab(s) (TYLENOL) 1,000 mg ORAL QID dextrose 15 gram/32 mL 15 g (TRUEPLUS) 15 g ORAL PRN Or glucagon 1 mg injection 1 mg INTRAMUSCULAR PRN Or dextrose 10% iv bolus 12.5 g INTRAVENOUS PRN oxyCODONE IR 2.5-5 mg tab(s) (ROXICODONE) 2.5-5 mg ORAL q 6 H PRN sodium chloride 0.9 % (flush) 2-10 mL (BD POSIFLUSH) 2-10 mL INTRAVENOUS DIRECTED PRN insulin lispro injection (rapid acting) (ADMElog) SUBCUTANEOUS w MEALS AND HS Labs: Recent Labs 02/07/23 0339 02/06/23 0444 NA 136 136 K 3.9 4.4 CHLOR 99 95* CO2 23 25 BUN 50* 59* CREAT 1.38* 1.61* GLUC 100* 156* ANION 14 16 CA 9.8 10.2 MG -- 1.7 P -- 3.1 WBC 13.72* 14.78* HB 8.3* 9.3* HCT 24.8* 27.0* PLT 441* 548* PHYSICAL EXAM: GENERAL: Alert. No distress. Resting comfortably. NEURO: AANDOx3. No focal neurologic deficits. Sensation grossly intact. HEENT: Normocephalic. Atraumatic. EOMI. LUNGS: Unlabored breathing. Equal excursion bilaterally. CARDIAC: Regular rate. Good perfusion throughout. ABDOMEN: Soft, non-tender, non-distended. No rebound or guarding. EXTREMITIES: GARCIA. No deformities. SKIN: No obvious jaundice or pallor. ASSESSMENT AND PLAN: Assessment Active Hospital Problems Diagnosis Date Noted Subdural hematoma (HCC) 02/06/2023 87 year old female s/p GLF on plavix on 02/06 Imaging performed: CT HN, XR wrist, CXR/PXR (02/05) Traumatic Injuries: SDH of left falx cerebrum Operations/Procedures: 1. None Care Plan: SDH of left falx cerebrum NSGY consult, apprec recs Rpt CT H table Received DDAVP upon arrival for reversal of ASA/plavix SBP <160, HOB >30 Holding DVT ppx for now No indication for keppra Hx of T2DM Continue sliding scale insulin Regular diet Pain regimen: Wilmar tylenol, Oxy PRN Bowel regimen: Senna-S Daily labs Strict Is/Os Holding DVT ppx, okay for SCDs Progressive mobility PT/OT recs, hopeful for home Stable for d/c PPX: DVT: holding Ulcer: NA Vit D level if > 65 yo: ordered Consulted Services: NSGY SICU Dispo Planning: PT/OT recs pending. Case management following. Incidentals: None Follow Up Needs: PT/OT recs INPATIENT ATTENDING: * Surgery not found *, High-Risk Geriatric Patient Vulnerabilities: Age >85 Diet: DIET REGULAR Code Status: DNR-CCA Recommendations: Cognition: No Cognitive Impairment bCAM Score (Calc): Negative Delirium Screen Confusion Assessment Method (CAM - ICU Score): (more content not included)... [facility]11-26-2023 NoteHNO ID: [id number] Author: Laurita Cintron PA-C Service: Neurosurgery Author Type: Physician Supply Chain Design Manager Type: Progress Notes Filed: 02/07/2023 10:30 AM Note Text: Attestation signed by Nimesh Phillips MD at 02/08/2023 9:02 AM Pt is stable Neurologically. No surgical intervention for the SDH. When discharged I recommend that she has a family member with her or go to acute rehab. I will check her in my Clinic in 10 days with a CTH. If she develops DUNLAP or Neurological symptoms she ought to be brought back to ER. Nimesh Phillips MD Neurosurgery Progress Note SERVICE DATE: 02/07/2023 SUBJECTIVE: NAEON OBJECTIVE: Vitals: Temp (24hrs), Av.8 ?C (98.2 ?F), Min:36.6 ?C (97.9 ?F), Max:37 ?C (98.6 ?F) BP (!) 110/49 Pulse 85 Temp 36.6 ?C (97.9 ?F) (Oral) Resp 18 Ht 149.9 cm (4' 11) Wt 70.8 kg (156 lb 1.4 oz) SpO2 96% BMI 31.53 kg/m? O2 Therapy: Room Air IANDO: Date 02/06/23699 - 02/07/2365802/07/23699 - 02/08/2359 Shift 8142-0110 9554-8507 2250-0291 24 Hour Total 6699-8176 1027-5078 6466-8372 24 Hour Total INTAKE PO 300 300 PO 300 300 IV 850 850 Volume (mL) (NaCl 0.9% 500 mL iv bolus) 400 400 Volume (mL) (NaCl 0.9% iv infusion) 450 450 Shift Total 244 412 1672 OUTPUT Urine 1200 1200 Output ( External Collection Device 02/06/23 0227 [facility]) 1200 1200 # of BMs Number of BMs 0 x 0 x Shift Total 1200 1200 Weight (kg) 65.5 65.5 70.8 70.8 70.8 70.8 70.8 70.8 MEDICATIONS Current Facility-Administered Medications Medication Dose Route Frequency NaCl 0.9% iv flush bag 20 mL INTRAVENOUS PRN levothyroxine 75 mcg tab(s) (SYNTHROID) 75 mcg ORAL BEFORE BREAKFAST DAILY pravastatin 80 mg tab(s) (PRAVACHOL) 80 mg ORAL AT BEDTIME carvedilol 25 mg tab(s) (COREG) 25 mg ORAL BID w MEALS pantoprazole DR 40 mg tab(s) (PROTONIX) 40 mg ORAL BEFORE BREAKFAST DAILY folic acid 2 mg tab(s) 2 mg ORAL DAILY citalopram 20 mg tab(s) (CeleXA) 20 mg ORAL DAILY amLODIPine 5 mg tab(s) (NORVASC) 5 mg ORAL DAILY ondansetron 4 mg tab(s) (ZOFRAN) 4 mg ORAL q 6 H PRN Or ondansetron (PF) 4 mg injection (ZOFRAN) 4 mg INTRAVENOUS q 6 H PRN acetaminophen 1,000 mg tab(s) (TYLENOL) 1,000 mg ORAL QID dextrose 15 gram/32 mL 15 g (TRUEPLUS) 15 g ORAL PRN Or glucagon 1 mg injection 1 mg INTRAMUSCULAR PRN Or dextrose 10% iv bolus 12.5 g INTRAVENOUS PRN oxyCODONE IR 2.5-5 mg tab(s) (ROXICODONE) 2.5-5 mg ORAL q 6 H PRN sodium chloride 0.9 % (flush) 2-10 mL (BD POSIFLUSH) 2-10 mL INTRAVENOUS DIRECTED PRN insulin lispro injection (rapid acting) (ADMElog) SUBCUTANEOUS w MEALS AND HS Labs: Recent Labs 02/07/23 0339 02/06/23 0444 NA 136 136 K 3.9 4.4 CHLOR 99 95* CO2 23 25 BUN 50* 59* CREAT 1.38* 1.61* GLUC 100* 156* ANION 14 16 CA 9.8 10.2 MG -- 1.7 P -- 3.1 WBC 13.72* 14.78* HB 8.3* 9.3* HCT 24.8* 27.0* PLT 441* 548* Imaging: CT brain without contrast 02/06/2023 at 1:21pm: IMPRESSION: Stable appearance of the head from 02/06/2023 5:02 AM including unchanged LEFT parafalcine subdural hematoma without significant mass effect. Exam: GENERAL: Awake and alert; NAD; cooperative; pleasant NEURO: Orientedx3; speech clear and fluent; GARCIA; no arm drift Motor Exam: Right Left Shoulder ABduction (C5/C6) 5/5 5/5 Elbow flexion (C5/C6) 5/5 5/5 Elbow extension (C7/C8) 5/5 5/5 Wrist extension (C6/C7) 5/5 5/5 Blue Line Trimmer (C8/T1) 5/5 5/5 Intrinsics (C8/T1) 5/5 5/5 Hip flexion (L2/3) 4-/5 4-/5 Knee extension (L3/4) 4/5 4/5 Knee flexion (L5/S1) 4/5 4/5 EHL (L5) 5/5 5/5 Dorsiflexion (L4) 5/5 5/5 Plantarflexion (S1/S2) 5/5 5/5 HEENT: Normocephalic; atraumatic; perrl/eomi; no facial droop LUNGS: Unlabored breathing CARDIAC: Rate and rhythm as above ABDOMEN: Soft, non-tender, non-distended EXTREMITIES: No deformities, No edema SKIN: Skin color normal; Temperature normal; no rashes or lesions ASSESSMENT AND PLAN: Neelam Ryan is a 87 year old female presenting to [facility] from OSH following fall at home. -Neuro as above -Imaging: [facility] imaging yesterday reviewed: stable small SDH to L falx cerebri, no mass effect. Non-surgical. -No indication for seizure pxx -Hold Plavix and ASA until follow up -SCDs for DVT ppx -Plan for outpatient follow up in 10 days with repeat CTH Parts of this note may have been copied from one of my previous notes and remain pertinent. The documentation has been reviewed and edited as necessary to support the clinical decision making for today's visit. SIGNATURE: Laurita Cintron PA-C PATIENT NAME: Neelam Ryan DATE: February 07, 2023 TIME: 6:49 AM Pager: [phone]-25-[facility]23 NoteHNO ID: [id number] Author: Becka Oviedo RN Service: Nursing Author Type: Registered Nurse Type: Nursing Progress Note Filed: 02/06/2023 6:05 PM Note Text: Report called to Teresa ORTA on 52a pt's belongings [facility]11-25-2023 NoteHNO ID: [id number] Author: Louise Rodriguez APRN.CNP Service: Neurosurgery Author Type: Nurse Practitioner Type: Plan of Care Filed: 02/06/2023 5:36 AM Note Text: Attestation signed by Nimesh Phillips MD at 02/06/2023 6:10 AM Patient with GLF and interhemispheric SDH who is Neurologically stable. DDAVP given for being on Plavix and Aspirin. No Neuro surgical intervention . Needs F/U CT to monitor the SDH. I discussed the pt with Louise Mckenna and agree with her note below. Nimesh Phillips MD Neurosurgery Plan of Care Note: Repeat CTH shows increased L falx SDH, no mass effect. Plan to repeat CTH in 6 hrs. Continue q1hr neuro exams. Louisegene Rodriguez APRN CAR REFINISHER Neurosurgery Pager: [phone] February 06, 2023 5:35 [facility]11-18-2023 Progress note Author Kyle Culver [facility] January 30, 2023 2:27pm Note Date/Time January 30, 2023 2:27pm [facility] Medical Records Department [address] [place] [address] Progress Note - Hospitalist 01/30/23 1420 MR#: [id number] Acct: [id number] Name: NEELAM RYAN Rep #:[id number] : 1935 87 From: Kyle iraheta DO PCP: Dr. Koko Fuentes MD Status :ADM IN Location: [place] [id number]- Reason for Visit Reason for Visit: Diagnoses Anemia, unspecified (01/28/23) Elevated white blood cell count, unspecified (01/28/23) Pure hypercholesterolemia (01/28/23) Pure hypercholesterolemia, unspecified (01/28/23) Essential (primary) hypertension (01/28/23) Acute on chronic diastolic (congestive) heart failure (01/28/23) Acute kidney failure, unspecified (01/28/23) Chronic kidney disease, unspecified (01/28/23) Other forms of dyspnea (01/28/23) Other fatigue (01/28/23) Abnormal electrocardiogram [ECG] [EKG] (01/28/23) Presence of coronary angioplasty implant and graft (01/28/23) Coronary angioplasty status (01/28/23) Subjective Subjective No acute events overnight. Patient seen at bedside this morning. Sitting comfortably in bedside chair, conversing normally, no acute distress. Patient states that her dyspnea on exertion has significantly improved from admission. States she ambulated in the hallway yesterday with physical therapy and went close to 100 feet without any significant shortness of breath. Has had no dyspnea on exertion with walking around the room and going to the bathroom. Has continued to have good urine output. She denies any fevers or chills, chest pain, shortness of breath. No other acute pain or discomforts morning. No other acute concerns. Objective Data Objective Data Vital Signs: Vital Signs Temp Pulse Resp BP Pulse Ox O2 Del Method O2 Flow Rate 97.8 F 82 14 117/65 93 Room Air 2 01/30/23 08:30 01/30/23 08:30 01/30/23 08:30 01/30/23 08:30 01/30/23 08:30 01/30/23 08:30 01/30/23 08:24 Oxygen Flow Rate (L/min) 2 Oxygen Delivery Method Room Air Weight: 71.1 kg Body Mass Index (BMI) 31.6 Intake & Output: Intake and Output for Last 24 Hours 01/28/23 01/29/23 01/30/23 23:59 23:59 23:59 Intake Total 1040 / 1040 120 / 120 Output Total 3350 / 3350 300 / 300 Balance -2310 / -2310 -180 / -180 Lab / Micro Data 01/30/23 08:15 01/30/23 08:15 Labs: Laboratory Results - last 24 hr 01/29/23 16:09: Vitamin B12 > 2000 H, Folate 99.40 H 01/29/23 16:59: POC Glucose 160 H 01/30/23 06:59: POC Glucose 129 H 01/30/23 08:15: WBC 11.0, RBC 2.54 L, Hgb 9.3 L, Hct 28.5 L, MCV 112.2 H, MCH 36.6 H, MCHC 32.6, RDW Std Deviation 64.4 H, RDW Coeff of Maria Del Rosario 15.6 H, Plt Count 446, MPV 9.5, Sodium 136, Potassium 3.2 L, Chloride 99, Carbon Dioxide 27.0, Anion Gap 10, BUN 50 H, Creatinine 1.53 H, Estim Creat Clear Calc 29.62, Est GFR (MDRD) Af Amer 41 L, Est GFR (MDRD) Non-Af 34 L, BUN/Creatinine Ratio 32.7 H, Glucose 146 H, Calcium 10.1 01/30/23 11:14: POC Glucose 228 H Micro: Microbiology 01/28/23 23:44 Urine, Clean Catch Urine Culture - Preliminary Presumptive E. coli 01/28/23 19:30 Mucosa - Nose Respiratory Panel (PCR) - Final 01/28/23 19:30 Nasal Secretion SARS-CoV-2 & FLU Antigen (Rapid) - Final Radiography Diagnostic Testing: Radiology Impression Echocardiogram 01/29/23 05:55 Interpretation Summary The estimated ejection fraction is 55-60 %. LV systolic function Mild MR Mild TR No significant change from previous echocardiogram Ordering Physician: Joceline Montgomery Referring Physician: Frank Fuentes Performed By: Brisa Walter, ARMAND, RVT Physical Exam Const alert, oriented x3 and no apparent distress Constitutional Narrative: Pleasant elderly female, obese, chronically ill-appearing, laying comfortably in bed, conversing normally, no acute distress. Satting well on room air, no increased work of breathing noted. General Appearance: cooperative and comfortable HEENT normocephalic, head/scalp atraumatic, hearing grossly normal bilaterally, nasal mucous membranes and turbinates normal and moist oral mucous membranes Eyes PERRL, EOMs intact bilaterally and conjunctivae normal Neck full ROM, no lymphadenopathy and supple Lymph Lymphatic: no lymphadenopathy noted Chest inspection of chest normal Resp normal respiratory effort and no use of accessory muscles Resp Narrative: Scattered crackles more notable at lung bases bilaterally. No wheezing noted. Cardio regular rate, regular rhythm, no murmurs and peripheral pulses 2+ throughout GI normal to inspection, nondistended, normoactive bowel sounds, soft to palpation, non-tender and non-distended Back/Spine normal ROM Extremity normal to inspection and full ROM Extremity Narrative: Trace bilateral lower extremity edema noted. Skin no rashes or lesions noted Psych mental status grossly normal Assessment & Plan Assessment/Plan (1) ROBINS (dyspnea on exertion): PLAN: Plan Patient is an 87-year-old female who presented to [facility] ED on 01/28/2023 with worsening dyspnea on exertion. 1. Dyspnea on exertion; EKG changes; Acute on chronic diastolic heart failure Patient on admission reported progressively worsening dyspnea on exertion over the past 2 years. Etiology unclear currently, could be component of acute on chronic diastolic heart failure versus acute on chronic anemia versus anginal equivalent. Troponins negative, no overt chest pain since admission. However does have T wave inversions in V3-V6 that appear new in comparison to EKG from 2019. BNP is also elevated. Echo 01/29 showed EF 55 to 60%, mild MR, mild TR, no significant change from previous echo from 07/2022. ? Cardiology following. With normal echo, suspect patient will not need stress testing during this admission. Remains on IV Lasix, appears to be approaching euvolemia, will de-escalate to p.o. Lasix 40 mg daily tomorrow and plan to discharge patient home on this dosage. Continue home Plavix, Norvasc, Coreg, isosorbide, pravastatin, aspirin. 2. JOHN on CKD stage IIIb, improved Creatinine 1.77 on admit, baseline creatinine around 1.3-1.4. Suspect mild JOHN secondary to slight cardiorenal syndrome. Creatinine improved to 1.40 on 01/29. ? We will transition to p.o. Lasix tomorrow morning as noted above. Monitor BMP daily. 5. Leukocytosis, improved WBC count 15 on admit. Low concern for active infection, likely secondary to acute stress response. ? Improved to WBC count 11 on 01/30. No need for antibiotics. 6. Acute on chronic anemia, stable Baseline hemoglobin appears to be around 10-11, hemoglobin 8.9 on admission, MCV 110. Unclear etiology, no signs of active bleeding, patient reports no dark or bloody stools. Iron studies normal. Vitamin B12 > 2000, folate 99 (above normal range). ? Hemoglobin 9.3 on 01/30. Suspect this may be patient's new baseline hemoglobin in setting of CKD. No need for further monitoring at this time. 7. CAD, hypertension, hyperlipidemia Known triple-vessel disease with first cardiac catheterization done in 2011 with postprocedure complication of pericardial effusion that required pericardial window. Repeat cardiac catheterization in 2019 which demonstrated preserved ejection fraction, proximal LAD luminal irregularities, distal LAD with 80% stenosis, circumflex with mid vessel 75% stenotic lesion and the obtuse marginal had a 95% stenosis. The right coronary artery which was previously stented and almost the entire vessel had 40 to 50% rein-stent stenosis. ? Continue home statin, aspirin, Plavix, oral antihypertensives. Cardiology following as above. Chronic medical conditions: ? Type 2 diabetes: Holding home oral agents, sliding scale insulin while inpatient. ? Glaucoma: Continue home eyedrops. ? Hypothyroidism: Continue home Synthroid. ? Vitamin D deficiency: Restart vitamin D supplement at discharge ? Obesity: BMI 31 on admit, encouraged lifestyle modifications. ? GERD: Continue home PPI. DVT prophylaxis: Heparin subcu CODE STATUS: DNR CCA, okay to intubate Expected disposition: Home, 1-2 days Total clinical time spent by myself addressing the patient's medical issues, reviewing all the data, and collaborating with patient's care team: 35 minutes. Charges/Coding Visit Charges Inpatient E&M: 42655 Subs Hosp L2 01/30/23 1427 <Electronically signed by Kyle Culver DO> Cosigner Signature (if applicable): CC: ~ Signed [facility] Work Phone: [phone] 241-953511-17-2023 Consult note Author Shahnaz Reeves [facility] January 29, 2023 4:24pm Note Date/Time January 29, 2023 10:49am [facility] Medical Records Department [address] [place] [address] Consultation - Cardiology 01/29/23 1047 MR#: [id number] Acct: [id number] Name: NEELAM RYAN Rep #:[id number] 5 : 1935 87 From: Shahnaz Reeves MD PCP: Dr. Koko Fuentes MD Status :ADM IN Location: [place] [id number] <Statement entered by Shahnaz Reeves MD - 01/29/23 16:23> Pt seen & evaluated w/ALONZO. I personally interviewed & exam the pt. I was involved in all aspects of pt's orders, interpretation of results & treatment Assessment & Plan Assessment/Plan (1) ROBINS (dyspnea on exertion): (2) Acute on chronic diastolic heart failure: (3) History of coronary angioplasty: (4) History of coronary artery stent placement: (5) Essential (primary) hypertension: (6) Hyperlipidemia: QUALIFIERS: Hyperlipidemia type: pure hypercholesterolemia Qualified Code(s): E78.00 - Pure hypercholesterolemia, unspecified; E78.0 - Purehypercholesterolemia (7) Chronic kidney disease: PLAN: Plan * Troponins are negative. She currently does not have any CP, if echo is similar to previous feel she can have a stress test on OP basis. * Echocardiogram is pending. She did have an elevated BNP. SOB has improved with IV lasix. * BP is controlled * Will continue with home medications: Plavix, Norvasc, Coreg, Isosorbide, Pravastatin, ASA. * Diastolic HF could be related to her anemia. HPI Consult Data Date of Consult: 01/29/23 HPI Narrative HPI Narrative: NEELAM RYAN, is a 87 F who presented to [facility] ER on 01/28/23 for increased SOB, She notes that she had increased SOB over the last 2 weeks but yesterday itwas concerning. She denies orthopnea, chest pain, palpitations, lightheadedness,dizziness or edema. Troponins trended . BNP was elevated at 454. Hgb is8.7. She has a history of coronary artery disease with triple-vessel disease. In 2011 she had a [employer] followed by stent deployment. Postprocedure she developedhypotension and had a moderate global pericardial effusion and underwent an emergent pericardial window placement. In September 2018 she underwent a cardiac catheterization which demonstrated preserved ejection fraction of 60%, proximal LAD with luminal irregularities in the distal LAD with an 80% stenotic lesion. The circumflex artery had a mid 75% stenotic lesion and this obtuse marginal vessel had a long 95% stenosis of the first obtuse marginal branch. The right coronary artery which was previously stented involving almost the entire vessel had approximately 40 to 50% in-stent stenosis. She underwent angioplasty of themid circumflex artery . She also has a hx of hypertension, HL and CKD. [facility] Medical History Atherosclerosis of coronary artery without angina pectoris Chronic kidney disease Essential (primary) hypertension Hyperlipidemia Hypothyroidism Obesity Pericardial effusion with cardiac tamponade Type 2 diabetes mellitus Home Medications aspirin 81 mg tablet,delayed release 81 mg PO DAILY@0800 01/02/15 [History Last Taken 09/23/18] carvedilol 25 mg tablet 25 mg PO BID 01/02/15 [History Last Taken 09/23/18] cholecalciferol (vitamin D3) 25 mcg (1,000 unit) tablet 1,000 unit PO DAILY 01/02/15 [History Last Taken Unknown] clopidogrel 75 mg tablet 75 mg PO DAILY 01/02/15 [History Last Taken 09/23/18] cranberry 500 mg capsule 500 mg PO DAILY 01/02/15 [History Last Taken Unknown] furosemide 20 mg tablet 20 mg PO DAILY 01/02/15 [History Last Taken Unknown] levothyroxine 75 mcg tablet 75 mcg PO QHS 01/02/15 [History Last Taken 09/23/18] pravastatin 80 mg tablet 80 mg PO DAILY 01/02/15 [History Last Taken Unknown] sitagliptin phosphate 50 mg tablet (Januvia) 50 mg PO DAILY 08/22/18 [History Last Taken Unknown] glipizide 5 mg tablet (Glucotrol) 5 mg PO BID 08/24/18 [History Last Taken Unknown] nitroglycerin 0.4 mg sublingual tablet 0.4 mg sublingual Q5-15M PRN chest pain #25 tabs 12/07/18 [Rx Last Taken Unknown] amlodipine 5 mg tablet (Norvasc) 5 mg PO DAILY #90 tabs 03/30/19 [Rx Last Taken Unknown] citalopram 20 mg tablet 20 mg PO DAILY 08/22/19 [History Last Taken Unknown] folic acid 1 mg tablet 1 mg PO BID 08/22/19 [History Last Taken Unknown] latanoprost 0.005 % eye drops (Xalatan) 1 drp ophthalmic (eye) .daily qhs eye 04/04/21 [History Last Taken Unknown] pantoprazole 40 mg tablet,delayed release 40 mg PO DAILY 04/04/21 [History Last Taken Unknown] cyanocobalamin (vitamin B-12) 1,000 mcg capsule 1,000 mcg PO DAILY 05/21/22 [History Last Taken Unknown] isosorbide mononitrate 30 mg tablet,extended release 24 hr 60 mg PO DAILY 09/21/22 [History Last Taken Unknown] vitamins A,C,H-abxu-edyqby 4,296 mcg-226 mg-90 mg capsule (PreserVision AREDS) 1cap PO BID 09/21/22 [History Last Taken Unknown] Allergy/AdvReac Type Severity Reaction Status Date / Time quinapril HCl [From Accupril] Allergy Other Verified 01/28/23 16:44 Sulfa (Sulfonamide Allergy Rash Verified 01/28/23 16:44 Antibiotics) Family History Other CAD (coronary artery disease) Diabetes Surgical History History of bladder suspension procedure History of carpal tunnel release History of coronary angioplasty (09/23/18) History of coronary artery stent placement (11/20/11) History of herniorrhaphy History of hysterectomy History of partial thyroidectomy Hx of cholecystectomy S/P pericardial window creation (11/20/11) Social History (Updated 01/28/23 @ 22:[address] Joceline Montgomery DO) Smoking Status: Never smoker alcohol intake: never substance use type: does not use ROS Constitutional Constitutional: Denies chills, fatigue, frequent falls, headache(s) or lethargy Eyes Eyes: Denies acute decrease in peripheral vision, blurry vision or change in vision ENT HEENT: Denies dizziness, epistaxis or vertigo Cardiovascular Cardiovascular: Reports as per HPI; Denies chest pain at rest, chest pain with activity, claudication, dyspnea at rest, edema, lightheadedness, orthopnea, orthostatic symptoms or palpitations Respiratory/Chest Respiratory/Chest: Denies cough or wheezing Gastrointestinal Gastrointestinal: Denies abdominal pain, bloating, coffee ground emesis, diarrhea, heartburn, hematemesis, hematochezia, melena or nausea Genitourinary Genitourinary: Denies hematuria Musculoskeletal Musculoskeletal: Denies myalgias, numbness or tingling Neurologic Neurologic: Denies abnormal gait, abnormal speech, memory loss, paresthesias or weakness Physical Exam Const alert, oriented x3, no apparent distress and well nourished; Negative for average body habitus General Appearance: cooperative HEENT normocephalic and head/scalp atraumatic HEENT Narrative: Patient with upper dental plate in place, mild hearing loss, mucous membranes are moist Eyes PERRL, EOMs intact bilaterally and conjunctivae normal Eyes Narrative: No scleral icterus Neck no lymphadenopathy, supple, No no JVD and no carotid bruits Neck Narrative: Positive JVD, trachea midline, no thyroid enlargement Resp Resp Narrative: Scattered crackles more notable at bases bilaterally Auscultation: crackles; Negative for rhonchi or wheezes Cardio regular rate, regular rhythm, S1 normal heart sound, S2 normal heart sound, no murmurs, no rub, no gallops and no clicks GI normal to inspection, nondistended, normoactive bowel sounds, soft to palpation and non-tender Extremity Extremity Narrative: Trace bilateral lower extremity edema, no cyanosis or clubbing Skin no rashes or lesions noted, no wounds, skin turgor normal, no jaundice, no petechiae and no mottling Skin Narrative: Skin is pale Neuro oriented x3, CN's II-XII intact bilaterally, moves all extremities and no focal motor deficits Speech: speech normal Psych affect normal Psych Narrative: Eye contact is good, patient is very pleasant, interacts appropriately Risk Stratification Risk Stratification Applicable: No Charges/Coding Visit Charges Office Visits / Consults: 65690 IP Consult L4 Objective Data Vital Signs: Vital Signs Temp Pulse Resp BP Pulse Ox O2 Del Method O2 Flow Rate 98.5 F 81 16 130/53 H 97 Nasal Cannula 2 01/29/23 10:02 01/29/23 10:02 01/29/23 10:02 01/29/23 10:02 01/29/23 10:02 01/29/23 10:02 01/29/23 10:02 Oxygen Flow Rate (L/min) 2 Oxygen Delivery Method Nasal Cannula Weight: 154 lb 5.177 oz Body Mass Index (BMI) 31.1 Intake & Output: Intake and Output for Last 24 Hours 01/27/23 01/28/23 01/29/23 23:59 23:59 23:59 Intake Total 120 / 120 Output Total 1800 / 1800 Balance -1680 / -1680 Lab / Micro Data 01/29/23 03:07 01/29/23 03:07 Labs: Laboratory Results - last 24 hr 01/28/23 17:30: WBC 15.5 H, RBC 2.37 L, Hgb 8.9 L, Hct 26.7 L, MCV 112.7 H, MCH 37.6 H, MCHC 33.3, RDW Std Deviation 64.5 H, RDW Coeff of Maria Del Rosario 16.0 H, Plt Count 402, MPV 10.0, Immature Gran % (Auto) 0.600, Neut % (Auto) 76.0 H, Lymph % (Auto) 10.9 L, Overton % (Auto) 7.3, Eos % (Auto) 4.7, Baso % (Auto) 0.5, Absolute Neuts (auto) 11.8 H, Absolute Lymphs (auto) 1.68, Nucleated RBC % 0.9, Sodium 135 L, Potassium 4.0, Chloride 100, Carbon Dioxide 24.0, Anion Gap 11, BUN 50 H,Creatinine 1.77 H, Estim Creat Clear Calc 25.49, Est GFR (MDRD) Af Amer 35 L, Est GFR (MDRD) Non-Af 29 L, BUN/Creatinine Ratio 28.2 H, Glucose 146 H, Calcium 9.6, Iron 50, TIBC 202 L, Iron Saturation 24.8, Ferritin 296 H, Troponin I High Sens 11, C-React Prot Ext Range 56.40 H, B-Natriuretic Peptide 454.1 H 01/28/23 22:39: POC Glucose 153 H 01/28/23 22:48: ESR 34 H, Troponin I High Sens 13 01/28/23 23:55: Urine Color Yellow, Urine Clarity Clear, Urine pH 6.0, Ur Specific Knox 1.010, Urine Protein Negative, Urine Glucose (UA) Normal, UrineKetones Negative, Urine Occult Blood Negative, Urine Nitrite Negative, Urine Bilirubin Negative, Urine Urobilinogen Normal, Ur Leukocyte Esterase 100 H, Urine RBC 0 SEEN, Urine WBC 10-25 SEEN, Ur Squamous Epith Cells 0 SEEN, Urine Bacteria 2+, Urine Mucus 0 SEEN 01/29/23 03:07: WBC 13.0 H, RBC 2.37 L, Hgb 8.7 L, Hct 25.9 L, MCV 109.3 H, MCH 36.7 H, MCHC 33.6, RDW Std Deviation 60.9 H, RDW Coeff of Maria Del Rosario 15.6 H, Plt Count 394, MPV 9.5, Immature Gran % (Auto) 0.800, Neut % (Auto) 75.4 H, Lymph % (Auto)12.1 L, Overton % (Auto) 7.1, Eos % (Auto) 4.3, Baso % (Auto) 0.3, Absolute Neuts (auto) 9.8 H, Absolute Lymphs (auto) 1.57, Nucleated RBC % 0.8, Sodium 139, Potassium 3.4 L, Chloride 101, Carbon Dioxide 27.0, Anion Gap 11, BUN 47 H, Creatinine 1.40 H, Estim Creat Clear Calc 31.88, Est GFR (MDRD) Af Amer 46 L, Est GFR (MDRD) Non-Af 38 L, BUN/Creatinine Ratio 33.6 H, Glucose 143 H, Calcium 9.1, Phosphorus 3.6, Magnesium 1.7, Total Bilirubin 0.60, AST 5 L, ALT 10 L, Alkaline Phosphatase 81, Troponin I High Sens 14, Total Protein 6.5, Albumin 3.1L, Globulin 3.4, Albumin/Globulin Ratio 0.9, TSH 1.19 01/29/23 05:37: POC Glucose 106 Micro: Microbiology 01/28/23 19:30 Mucosa - Nose Respiratory Panel (PCR) - Final 01/28/23 19:30 Nasal Secretion SARS-CoV-2 & FLU Antigen (Rapid) - Final Cardiology Labs/Tests 01/28/23 17:30: WBC 15.5 H, RBC 2.37 L, Hgb 8.9 L, Hct 26.7 L, MCV 112.7 H, MCH 37.6 H, MCHC 33.3, Plt Count 402, MPV 10.0, Immature Gran % (Auto) 0.600, Neut %(Auto) 76.0 H, Lymph % (Auto) 10.9 L, Overton % (Auto) 7.3, Eos % (Auto) 4.7, Baso % (Auto) 0.5, Absolute Neuts (auto) 11.8 H, Nucleated RBC % 0.9, Sodium 135 L, Potassium 4.0, Chloride 100, Carbon Dioxide 24.0, Anion Gap 11, BUN 50 H, Creatinine 1.77 H, Est GFR (MDRD) Af Amer 35 L, Est GFR (MDRD) Non-Af 29 L, BUN/Creatinine Ratio 28.2 H, Glucose 146 H, Calcium 9.6, Iron 50, TIBC 202 L, Iron Saturation 24.8, Ferritin 296 H, B-Natriuretic Peptide 454.1 H 01/28/23 23:55: Urine Color Yellow, Urine Clarity Clear, Urine pH 6.0, Ur Specific Knox 1.010, Urine Protein Negative, Urine Glucose (UA) Normal, UrineKetones Negative, Urine Occult Blood Negative, Urine Nitrite Negative, Urine Bilirubin Negative, Urine Urobilinogen Normal, Ur Leukocyte Esterase 100 H, Urine RBC 0 SEEN, Urine WBC 10-25 SEEN 01/29/23 03:07: WBC 13.0 H, RBC 2.37 L, Hgb 8.7 L, Hct 25.9 L, MCV 109.3 H, MCH 36.7 H, MCHC 33.6, Plt Count 394, MPV 9.5, Immature Gran % (Auto) 0.800, Neut % (Auto) 75.4 H, Lymph % (Auto) 12.1 L, Overton % (Auto) 7.1, Eos % (Auto) 4.3, Baso % (Auto) 0.3, Absolute Neuts (auto) 9.8 H, Nucleated RBC % 0.8, Sodium 139, Potassium 3.4 L, Chloride 101, Carbon Dioxide 27.0, Anion Gap 11, BUN 47 H, Creatinine 1.40 H, Est GFR (MDRD) Af Amer 46 L, Est GFR (MDRD) Non-Af 38 L, BUN/Creatinine Ratio 33.6 H, Glucose 143 H, Calcium 9.1, Phosphorus 3.6, Magnesium 1.7, Total Bilirubin 0.60 Radiography Diagnostic Testing: Radiology Impression Chest X-Ray 01/28/23 19:15 IMPRESSION: Probable chronic bibasilar interstitial thickening with interval progression since prior study. Cannot exclude superimposed acute inflammatory changes Electronically Signed: Dhruv Rodriguez MD at 19:36 EST Reading Location ID and State: [facility] / [place] Tel , Service support , 01/29/23 1624 <Electronically signed by Shahnaz Reeves MD> Cosigner Signature (if applicable): 01/29/23 1111 <Electronically signed by Edel SIM> CC: Dr. Koko Fuentes MD; Dr. Shahnaz Reeves MD; Dr. Joceline Montgomery DO~ Signed [facility] Work Phone: [phone]) [phone] Progress note Author Kyle Culver [facility] January 29, 2023 3:31pm Note Date/Time January 29, 2023 3:18pm [facility] Medical Records Department [address] [place] [address] Progress Note - Hospitalist 01/29/23 1513 MR#: [id number] Acct: [id number] Name: NEELAM RYAN Rep #:[id number] : 1935 87 From: Kyle iraheta DO PCP: Dr. Koko Fuentes MD Status :ADM IN Location: [facility] [id number] Reason for Visit Reason for Visit: Diagnoses Anemia, unspecified (01/28/23) Elevated white blood cell count, unspecified (01/28/23) Acute on chronic diastolic (congestive) heart failure (01/28/23) Acute kidney failure, unspecified (01/28/23) Other forms of dyspnea (01/28/23) Other fatigue (01/28/23) Abnormal electrocardiogram [ECG] [EKG] (01/28/23) Subjective Subjective Patient admitted yesterday evening for worsening dyspnea on exertion. No acute events overnight. Patient seen at bedside this morning. Laying comfortably in bed, conversing normally, no acute distress. Patient denies any shortness of breath at rest. Has PureWick in place, states she had very good urine output overnight with IV Lasix. Has not getting out of bed yet this morning. States she continues to feel volume overloaded in her legs this morning. Denies any chest pain or cough. Denies any other acute pain or discomfort currently. No other acute concerns at this time. Objective Data Objective Data Vital Signs: Vital Signs Temp Pulse Resp BP Pulse Ox O2 Del Method O2 Flow Rate 98.3 F 73 16 109/49 L 95 Nasal Cannula 2 01/29/23 14:52 01/29/23 14:52 01/29/23 14:52 01/29/23 14:52 01/29/23 14:52 01/29/23 14:52 01/29/23 14:52 Oxygen Flow Rate (L/min) 2 Oxygen Delivery Method Nasal Cannula Weight: 70 kg Body Mass Index (BMI) 31.1 Intake & Output: Intake and Output for Last 24 Hours 01/27/23 01/28/23 01/29/23 23:59 23:59 23:59 Intake Total 120 / 120 Output Total 1800 / 1800 Balance -1680 / -1680 Lab / Micro Data 01/29/23 03:07 01/29/23 03:07 Labs: Laboratory Results - last 24 hr 01/28/23 17:30: WBC 15.5 H, RBC 2.37 L, Hgb 8.9 L, Hct 26.7 L, MCV 112.7 H, MCH 37.6 H, MCHC 33.3, RDW Std Deviation 64.5 H, RDW Coeff of Maria Del Rosario 16.0 H, Plt Count 402, MPV 10.0, Immature Gran % (Auto) 0.600, Neut % (Auto) 76.0 H, Lymph % (Auto) 10.9 L, Overton % (Auto) 7.3, Eos % (Auto) 4.7, Baso % (Auto) 0.5, Absolute Neuts (auto) 11.8 H, Absolute Lymphs (auto) 1.68, Nucleated RBC % 0.9, Sodium 135 L, Potassium 4.0, Chloride 100, Carbon Dioxide 24.0, Anion Gap 11, BUN 50 H, Creatinine 1.77 H, Estim Creat Clear Calc 25.49, Est GFR (MDRD) Af Amer 35 L, Est GFR (MDRD) Non-Af 29 L, BUN/Creatinine Ratio 28.2 H, Glucose 146 H, Calcium 9.6, Iron 50, TIBC 202 L, Iron Saturation 24.8, Ferritin 296 H, Troponin I High Sens 11, C-React Prot Ext Range 56.40 H, B-Natriuretic Peptide 454.1 H 01/28/23 22:39: POC Glucose 153 H 01/28/23 22:48: ESR 34 H, Troponin I High Sens 13 01/28/23 23:55: Urine Color Yellow, Urine Clarity Clear, Urine pH 6.0, Ur Specific Knox 1.010, Urine Protein Negative, Urine Glucose (UA) Normal, Urine Ketones Negative, Urine Occult Blood Negative, Urine Nitrite Negative, Urine Bilirubin Negative, Urine Urobilinogen Normal, Ur Leukocyte Esterase 100 H, Urine RBC 0 SEEN, Urine WBC 10-25 SEEN, Ur Squamous Epith Cells 0 SEEN, Urine Bacteria 2+, Urine Mucus 0 SEEN 01/29/23 03:07: WBC 13.0 H, RBC 2.37 L, Hgb 8.7 L, Hct 25.9 L, MCV 109.3 H, MCH 36.7 H, MCHC 33.6, RDW Std Deviation 60.9 H, RDW Coeff of Maria Del Rosario 15.6 H, Plt Count 394, MPV 9.5, Immature Gran % (Auto) 0.800, Neut % (Auto) 75.4 H, Lymph % (Auto) 12.1 L, Overton % (Auto) 7.1, Eos % (Auto) 4.3, Baso % (Auto) 0.3, Absolute Neuts (auto) 9.8 H, Absolute Lymphs (auto) 1.57, Nucleated RBC % 0.8, Sodium 139, Potassium 3.4 L, Chloride 101, Carbon Dioxide 27.0, Anion Gap 11, BUN 47 H, Creatinine 1.40 H, Estim Creat Clear Calc 31.88, Est GFR (MDRD) Af Amer 46 L, Est GFR (MDRD) Non-Af 38 L, BUN/Creatinine Ratio 33.6 H, Glucose 143 H, Calcium 9.1, Phosphorus 3.6, Magnesium 1.7, Total Bilirubin 0.60, AST 5 L, ALT 10 L, Alkaline Phosphatase 81, Troponin I High Sens 14, Total Protein 6.5, Albumin 3.1 L, Globulin 3.4, Albumin/Globulin Ratio 0.9, TSH 1.19 01/29/23 05:37: POC Glucose 106 01/29/23 11:49: POC Glucose 188 H Micro: Microbiology 01/28/23 19:30 Mucosa - Nose Respiratory Panel (PCR) - Final 01/28/23 19:30 Nasal Secretion SARS-CoV-2 & FLU Antigen (Rapid) - Final Radiography Diagnostic Testing: Radiology Impression Chest X-Ray 01/28/23 19:15 IMPRESSION: Probable chronic bibasilar interstitial thickening with interval progression since prior study. Cannot exclude superimposed acute inflammatory changes Electronically Signed: Dhruv Rodriguez MD at 19:36 EST Reading Location ID and State: [address] [place] [address] Tel , Service support , Physical Exam Const alert, oriented x3 and no apparent distress Constitutional Narrative: Pleasant elderly female, obese, chronically ill-appearing, laying comfortably in bed, conversing normally, no acute distress. Satting well on room air, no increased work of breathing noted. General Appearance: cooperative and comfortable HEENT normocephalic, head/scalp atraumatic, hearing grossly normal bilaterally, nasal mucous membranes and turbinates normal and moist oral mucous membranes Eyes PERRL, EOMs intact bilaterally and conjunctivae normal Neck full ROM, no lymphadenopathy and supple Lymph Lymphatic: no lymphadenopathy noted Chest inspection of chest normal Resp normal respiratory effort and no use of accessory muscles Resp Narrative: Scattered crackles more notable at lung bases bilaterally. No wheezing noted. Cardio regular rate, regular rhythm, no murmurs and peripheral pulses 2+ throughout GI normal to inspection, nondistended, normoactive bowel sounds, soft to palpation, non-tender and non-distended Back/Spine normal ROM Extremity normal to inspection and full ROM Extremity Narrative: Trace bilateral lower extremity edema noted. Skin no rashes or lesions noted Psych mental status grossly normal Assessment & Plan Assessment/Plan (1) ROBINS (dyspnea on exertion): PLAN: Plan Patient is an 87-year-old female who presented to [facility] ED on 01/28/2023 with worsening dyspnea on exertion. 1. Dyspnea on exertion; EKG changes; Acute on chronic diastolic heart failure Patient on admission reported progressively worsening dyspnea on exertion over the past 2 years. Etiology unclear currently, could be component of acute on chronic diastolic heart failure versus acute on chronic anemia versus anginal equivalent. Troponins negative, no overt chest pain since admission. However does have T wave inversions in V3-V6 that appear new in comparison to EKG from 2019. BNP is also elevated. ? Cardiology following. Echo pending. Started on IV Lasix on admission with good urine output, continue for now. Continue home Plavix, Norvasc, Coreg, isosorbide, pravastatin, aspirin. Cardiology noting that anemia could be causing symptoms, recommended further work-up as needed. Not a good catheterization candidate at this time due to kidney dysfunction; cardiology considering stress test pending echo results. 2. JOHN on CKD stage IIIb, improved Creatinine 1.77 on admit, baseline creatinine around 1.3-1.4. Suspect mild JOHN secondary to slight cardiorenal syndrome. Creatinine improved to 1.40 on 01/29. ? Continue IV Lasix as noted above. Monitor BMP daily. 5. Leukocytosis WBC count 15 on admit. Low concern for active infection, likely secondary to acute stress response. Improved to 13.0 on 01/29. ? Monitor CBC daily. Hold on antibiotics at this time. 6. Acute on chronic anemia Baseline hemoglobin appears to be around 10-11, hemoglobin 8.9 on admission, MCV 110. Unclear etiology, no signs of active bleeding, patient reports no dark or bloody stools. Iron studies normal. Vitamin B12 and folate pending. ? Hemoglobin 8.7 on 01/29. Monitor CBC daily. Follow-up pending studies. 7. CAD, hypertension, hyperlipidemia Known triple-vessel disease with first cardiac catheterization done in 2011 with postprocedure complication of pericardial effusion that required pericardial window. Repeat cardiac catheterization in 2019 which demonstrated preserved ejection fraction, proximal LAD luminal irregularities, distal LAD with 80% stenosis, circumflex with mid vessel 75% stenotic lesion and the obtuse marginal had a 95% stenosis. The right coronary artery which was previously stented and almost the entire vessel had 40 to 50% rein-stent stenosis. ? Continue home statin, aspirin, Plavix, oral antihypertensives. Cardiology following as above. Chronic medical conditions: ? Type 2 diabetes: Holding home oral agents, sliding scale insulin while inpatient. ? Glaucoma: Continue home eyedrops. ? Hypothyroidism: Continue home Synthroid. ? Vitamin D deficiency: Restart vitamin D supplement at discharge ? Obesity: BMI 31 on admit, encouraged lifestyle modifications. ? GERD: Continue home PPI. DVT prophylaxis: Heparin subcu CODE STATUS: DNR CCA, okay to intubate Expected disposition: Home, TBD Total clinical time spent by myself addressing the patient's medical issues, reviewing all the data, and collaborating with patient's care team: 35 minutes. Charges/Coding Visit Charges Inpatient E&M: 00279 Subs Hosp L2 01/29/23 1531 <Electronically signed by Kyle Culver DO> Cosigner Signature (if applicable): CC: ~ Signed [facility] Work Phone: 1(329) 415-831211-17-2023 Discharge summary Author Vimal Barneyehne [facility] January 29, 2023 1:58am Note Date/Time January 28, 2023 6:51pm [facility] Medical Records Department [address] [place] [id number] Emergency Department Summary 01/28/23 MR#: [id number] Acct: [id number] Name: NEELAM RYAN Rep #:[id number] : 1935 87 From: Vimal Daley PCP: Dr. Koko Fuentes MD Status :ADM IN Location: [place] [address] HPI History of Present Illness Chief Complaint: Shortness of Breath Informant: patient and family Narrative Narrative: 87-year-old female history of coronary artery disease presenting to the emergency room with dyspnea on exertion. Patient states for about the past weekwhenever she exerts herself she becomes very labored breathing. She denies any chest pain. No orthopnea. No change in leg swelling. No cough or fevers. No wheezing. Patient denies any known lung conditions. Patient denies any significant weight gain. However she states that last month that her kidney doctor she weighed 158 pounds. Here in the bed she weighs 163.7. Sitting in the bed she feels fine. [facility] Medical History Atherosclerosis of coronary artery without angina pectoris Chronic kidney disease Essential (primary) hypertension Hyperlipidemia Hypothyroidism Obesity Pericardial effusion with cardiac tamponade Type 2 diabetes mellitus Home Medications aspirin 81 mg tablet,delayed release 81 mg PO DAILY@0800 01/02/15 [History Last Taken 09/23/18] carvedilol 25 mg tablet 25 mg PO BID 01/02/15 [History Last Taken 09/23/18] cholecalciferol (vitamin D3) 25 mcg (1,000 unit) tablet 1,000 unit PO DAILY 01/02/15 [History Last Taken Unknown] clopidogrel 75 mg tablet 75 mg PO DAILY 01/02/15 [History Last Taken 09/23/18] cranberry 500 mg capsule 500 mg PO DAILY 01/02/15 [History Last Taken Unknown] furosemide 20 mg tablet 20 mg PO DAILY 01/02/15 [History Last Taken Unknown] levothyroxine 75 mcg tablet 75 mcg PO QHS 01/02/15 [History Last Taken 09/23/18] pravastatin 80 mg tablet 80 mg PO DAILY 01/02/15 [History Last Taken Unknown] sitagliptin phosphate 50 mg tablet (Januvia) 50 mg PO DAILY 08/22/18 [History Last Taken Unknown] glipizide 5 mg tablet (Glucotrol) 5 mg PO BID 08/24/18 [History Last Taken Unknown] nitroglycerin 0.4 mg sublingual tablet 0.4 mg sublingual Q5-15M PRN chest pain #25 tabs 12/07/18 [Rx Last Taken Unknown] amlodipine 5 mg tablet (Norvasc) 5 mg PO DAILY #90 tabs 03/30/19 [Rx Last Taken Unknown] citalopram 20 mg tablet 20 mg PO DAILY 08/22/19 [History Last Taken Unknown] folic acid 1 mg tablet 1 mg PO BID 08/22/19 [History Last Taken Unknown] latanoprost 0.005 % eye drops (Xalatan) 1 drp ophthalmic (eye) DAILY 04/04/21 [History Last Taken Unknown] pantoprazole 40 mg tablet,delayed release 40 mg PO DAILY 04/04/21 [History Last Taken Unknown] cyanocobalamin (vitamin B-12) 1,000 mcg capsule 1,000 mcg PO DAILY 05/21/22 [History Last Taken Unknown] isosorbide mononitrate 30 mg tablet,extended release 24 hr 60 mg PO DAILY 09/21/22 [History Last Taken Unknown] vitamins A,C,Q-txmt-cwjozb 4,296 mcg-226 mg-90 mg capsule (PreserVision AREDS) 1cap PO BID 09/21/22 [History Last Taken Unknown] Allergy/AdvReac Type Severity Reaction Status Date / Time quinapril HCl [From Accupril] Allergy Other Verified 01/28/23 16:44 Sulfa (Sulfonamide Allergy Rash Verified 01/28/23 16:44 Antibiotics) Family History Other CAD (coronary artery disease) Diabetes Surgical History History of bladder suspension procedure History of carpal tunnel release History of coronary angioplasty (09/23/18) History of coronary artery stent placement (11/20/11) History of herniorrhaphy History of hysterectomy History of partial thyroidectomy Hx of cholecystectomy S/P pericardial window creation (11/20/11) Social History (Updated 01/28/23 @ 22:[address] Joceline Montgomery DO) Smoking Status: Never smoker alcohol intake: never substance use type: does not use ROS ROS ED Constitutional Constitutional ED: Denies chills, fever(s) or weight loss Eyes Eyes: Denies change in vision or diplopia ENT ENT ED: Denies ear pain, rhinorrhea or sore throat Cardiovascular Cardiovascular: Denies chest pain, orthopnea, palpitations or racing heartbeat Respiratory/Chest Respiratory/Chest: Reports dyspnea and dyspnea on exertion; Denies cough or orthopnea Gastrointestinal Gastrointestinal: Denies abdominal pain, diarrhea, nausea or vomiting Genitourinary Genitourinary ED: Denies dysuria, hematuria or urinary frequency Musculoskeletal Musculoskeletal: Denies arthralgias or myalgias Integumentary Denies abscess or rash Neurologic Neurologic: Denies headache(s) or weakness Psychiatric Psychiatric: Denies anxiety, depression, suicidal ideation or suicidal thoughts Endocrine Endocrinology: Denies polydipsia, polyphagia or polyuria Allergic/Immunologic Allergic/Immunologic ED: Denies mouth swelling, tongue swelling or urticaria EXAM Physical Exam Const Vital Signs: 01/28/23 16:42 01/28/23 17:30 01/28/23 20:00 Temperature 97.8 F Temperature Source Temporal Pulse Rate 80 88 Respiratory Rate 18 15 Respiratory Effort Normal Blood Pressure 116/53 L 117/68 Blood Pressure Mean 74 84 Pulse Ox 89 93 Oxygen Delivery Method Room Air Room Air Room Air 01/28/23 21:09 Temperature Temperature Source Pulse Rate 84 Respiratory Rate 17 Respiratory Effort Blood Pressure 124/54 H Blood Pressure Mean 77 Pulse Ox 93 Oxygen Delivery Method Room Air Positive well nourished and well developed General Appearance ED: well developed HEENT Reports normocephalic, head/scalp atraumatic and moist mucous membranes Eyes PERRL and EOMs intact bilaterally Neck no lymphadenopathy, supple and no JVD Resp normal respiratory effort and clear to auscultation bilaterally Cardio regular rate, regular rhythm and no murmurs GI normal to inspection, nondistended, normoactive bowel sounds and non-tender Palpation: soft Back/Spine no CVA tenderness and normal ROM Extremity normal to inspection General Extremety ED: Negative for edema General Extremity: Negative for edema Neuro oriented x3 and CN's II-XII intact bilaterally Sensorium / Orientation: alert Motor Exam: strength 5/5 throughout Psych mental status grossly normal Mood & Affect: Negative for depressed or tearful Skin no rashes or lesions noted and no wounds MDM MDM MDM Narrative Medical decision making narrative: White count 15.5 with a hemoglobin of 8.9. Platelet count is 4 2. Troponin 11 CRP 56.4 beta natruretic peptide 454. BMP showed a creatinine 1.77 with a BUN of 50. Vitaped interpretation of the chest x-ray is mild to moderate pulmonary edema. The patient's EKG shows new ST T wave abnormalities inferior and anterior laterally when compared to EKG dated 23 September 2018. I am unable to findan EKG that is done after this. She did have an echocardiogram recently showed a normal ejection fraction. We will be get up the patient and have her ambulateshe reports dyspnea and her pulse ox becomes 90. She appears to have gained several pounds this month legs are slightly edematous she may have a cardiorenalsyndrome based on her lab's. Unexplained leukocytosis and her anemia may be multifactorial-from a dilution due to volume overload and also her MCV is 112. Patient's last heart cath showed blockages which are being managed medically. Geovany concerned about an anginal equivalent. History & Record Review Discussion w/independent historian: Patient and Family Additional record(s) reviewed:: Prior inpatient record, Prior outpatient record,Prior ED visit and Prior labs Lab Data Labs: Laboratory Results - last 24 hr 01/28/23 17:30 WBC 15.5 H RBC 2.37 L Hgb 8.9 L Hct 26.7 L MCV 112.7 H MCH 37.6 H MCHC 33.3 RDW Std Deviation 64.5 H RDW Coeff of Maria Del Rosario 16.0 H Plt Count 402 MPV 10.0 Immature Gran % (Auto) 0.600 Neut % (Auto) 76.0 H Lymph % (Auto) 10.9 L Overton % (Auto) 7.3 Eos % (Auto) 4.7 Baso % (Auto) 0.5 Absolute Neuts (auto) 11.8 H Absolute Lymphs (auto) 1.68 Nucleated RBC % 0.9 Sodium 135 L Potassium 4.0 Chloride 100 Carbon Dioxide 24.0 Anion Gap 11 BUN 50 H Creatinine 1.77 H Estim Creat Clear Calc 25.49 Est GFR (MDRD) Af Amer 35 L Est GFR (MDRD) Non-Af 29 L BUN/Creatinine Ratio 28.2 H Glucose 146 H Calcium 9.6 Iron 50 TIBC 202 L Iron Saturation 24.8 Ferritin 296 H Troponin I High Sens 11 C-React Prot Ext Range 56.40 H B-Natriuretic Peptide 454.1 H Radiography Diagnostic Testing: Clinical Impression(s) from Imaging Studies Chest X-Ray 01/28/23 19:15 IMPRESSION: Probable chronic bibasilar interstitial thickening with interval progression since prior study. Cannot exclude superimposed acute inflammatory changes Electronically Signed: Dhruv Rodriguez MD at 19:36 EST , EKG Initial EKG: Attestation: I personally reviewed and interpreted this EKG as follows: Comments: Normal sinus rhythm with a ventricular rate of [address]-T wave abnormalities noted inferiorly and anterolaterally. These are new from EKGdated 23 September 2018. Differential Diagnosis Chest pain/SOB: ACS, pneumothorax, pneumonia, aortic dissection and CHF Management Discussion w/another healthcare provider: Hospitalist Discharge Plan Dx/Rx/DC Orders Clinical Impression: Acute on chronic anemia, ROBINS (dyspnea on exertion), Essential (primary) hypertension, Leukocytosis, Acute on chronic diastolic heart failure, Chronic kidneydisease, Atherosclerosis of coronary artery without angina pectoris Disposition Disposition: Acute Care Hospital [facility] Discharge Date/Time: 01/28/23 22:00 What to do if you have Problems For any increased pain, shortness of breath, bleeding, nausea or vomiting, chestpain, or any unexpected problems, contact your Primary Care Provider. Call [facility] ([phone]) or report to the closest Emergency Room. Call 911 if necessary. 01/29/23 0158 <Electronically signed by Vimal Bang DO> Cosigner Signature (if applicable): CC: Dr. Koko Fuentes MD ~ Signed [facility] Work Phone: [phone] 161-792711-17-2023 History and physical note Author Joceline Montgomery [facility] January 28, 2023 10:55pm Note Date/Time January 28, 2023 10:37pm [facility] Medical Records Department [address] [place] [id number] H&P Exam - Hospitalist 01/28/231 MR#: [id number] Acct: [id number] Name: NEELAM RYAN Rep #:[id number] : 1935 87 From: Joceline Montgomery DO PCP: Dr. Koko Fuentes MD Status :ADM IN Location: [facility] [id number] HPI - General General Date of Admission: 01/28/23 Date of Service: 01/28/23 Chief Complaint: Shortness of breath on exertion HPI Narrative NEELAM RYAN, is a 87 F who presented to the emergency department at [facility] on 01/28/2023 due to exertional dyspnea. Patient reports that this has been progressively getting worse over the last 2 years. It significantly affecting her ability to ambulate in her home and she even gets fairly winded when she walks to the bathroom at this point. She states at rest she does not have any significant issues. She has a previous history of coronary disease for which she has multiple stents but is unable to remember what symptoms she had prior to the stent placements. She also complains of increasing fatigue over this time. She does have chronic renal disease and follows with nephrology. Her weight is up some and she complains of some mild lower extremity edema. She denies any fever, chills, cough, sputum production and has been compliant with her home medications. She has not been having any chest pain, nausea, vomiting or diaphoresis. She does not complain of orthopneaand has no known baseline lung disease. She reported she weighed 158 pounds at her nephrology appointment last month and today her weight is 163.7 pounds Vital signs on presentation showed a temperature of 97.8, heart rate 80, blood pressure 116/58, respiratory rate was 18-20 and oxygen saturations were 89% on room air. CBC showed a leukocytosis which is new at 15.5 and a left shift with a 76% neutrophilia, her hemoglobin was 8.9 which is down from her baseline of 10-11 last month. Her chemistry panel showed mild hyponatremia with a sodium of135 which is close to her baseline, BUN was 50 and serum creatinine was 1.77 which was up from her last assessment at which time her creatinine was 1.46 in December. Her troponin was 11 and her BNP was 454.1. EKG was normal sinus rhythm however she had new T wave inversions in V2 through V6 when compared to her previous EKG in the computer system from 2019. Chest x-ray showed volume overload with bilateral patchy infiltrates. COVID and flu are negative. Respiratory viral panel is pending. Patient was given 60 mg of IV Lasix in the emergency department and request for admission was made. [facility] Medical History Atherosclerosis of coronary artery without angina pectoris Chronic kidney disease Essential (primary) hypertension Hyperlipidemia Hypothyroidism Obesity Pericardial effusion with cardiac tamponade Type 2 diabetes mellitus Home Medications aspirin 81 mg tablet,delayed release 81 mg PO DAILY@0800 01/02/15 [History Last Taken 09/23/18] carvedilol 25 mg tablet 25 mg PO BID 01/02/15 [History Last Taken 09/23/18] cholecalciferol (vitamin D3) 25 mcg (1,000 unit) tablet 1,000 unit PO DAILY 01/02/15 [History Last Taken Unknown] clopidogrel 75 mg tablet 75 mg PO DAILY 01/02/15 [History Last Taken 09/23/18] cranberry 500 mg capsule 500 mg PO DAILY 01/02/15 [History Last Taken Unknown] furosemide 20 mg tablet 20 mg PO DAILY 01/02/15 [History Last Taken Unknown] levothyroxine 75 mcg tablet 75 mcg PO QHS 01/02/15 [History Last Taken 09/23/18] pravastatin 80 mg tablet 80 mg PO DAILY 01/02/15 [History Last Taken Unknown] sitagliptin phosphate 50 mg tablet (Januvia) 50 mg PO DAILY 08/22/18 [History Last Taken Unknown] glipizide 5 mg tablet (Glucotrol) 5 mg PO BID 08/24/18 [History Last Taken Unknown] nitroglycerin 0.4 mg sublingual tablet 0.4 mg sublingual Q5-15M PRN chest pain #25 tabs 12/07/18 [Rx Last Taken Unknown] amlodipine 5 mg tablet (Norvasc) 5 mg PO DAILY #90 tabs 03/30/19 [Rx Last Taken Unknown] citalopram 20 mg tablet 20 mg PO DAILY 08/22/19 [History Last Taken Unknown] folic acid 1 mg tablet 1 mg PO BID 08/22/19 [History Last Taken Unknown] latanoprost 0.005 % eye drops (Xalatan) 1 drp ophthalmic (eye) DAILY 04/04/21 [History Last Taken Unknown] pantoprazole 40 mg tablet,delayed release 40 mg PO DAILY 04/04/21 [History Last Taken Unknown] cyanocobalamin (vitamin B-12) 1,000 mcg capsule 1,000 mcg PO DAILY 05/21/22 [History Last Taken Unknown] isosorbide mononitrate 30 mg tablet,extended release 24 hr 60 mg PO DAILY 09/21/22 [History Last Taken Unknown] vitamins A,C,W-axxo-rimtyf 4,296 mcg-226 mg-90 mg capsule (PreserVision AREDS) 1cap PO BID 09/21/22 [History Last Taken Unknown] Allergy/AdvReac Type Severity Reaction Status Date / Time quinapril HCl [From Accupril] Allergy Other Verified 01/28/23 16:44 Sulfa (Sulfonamide Allergy Rash Verified 01/28/23 16:44 Antibiotics) Family History Other CAD (coronary artery disease) Diabetes Surgical History History of bladder suspension procedure History of carpal tunnel release History of coronary angioplasty (09/23/18) History of coronary artery stent placement (11/20/11) History of herniorrhaphy History of hysterectomy History of partial thyroidectomy Hx of cholecystectomy S/P pericardial window creation (11/20/11) Social History (Updated 01/28/23 @ 22:[address] Joceline Montgomery DO) Smoking Status: Never smoker alcohol intake: never substance use type: does not use ROS Constitutional Constitutional: Reports fatigue and weakness; Denies anorexia, change in weight,chills, fever(s), malaise, night sweats or other Eyes Eyes: Denies blurry vision, change in eye color, change in vision, discharge from eye(s), double vision, erythema, eye pain, loss of vision or other ENT HEENT: Denies abnormal hearing, dysphagia, ear pain, epistaxis, headache(s), hearing loss, nasal congestion, nasal discharge, post nasal drip, sinus pressure, sore throat or other Cardiovascular Cardiovascular: Reports dyspnea on exertion, edema and other Details: Decreased exercise tolerance ; Denies chest pain, claudication, lightheadedness, orthopnea, palpitations, paroxysmal nocturnal dyspnea, rapid heart rate or syncope Respiratory/Chest Respiratory/Chest: Reports dyspnea and shortness of breath with exertion; Deniescough, excessive phlegm production, hemoptysis, productive cough, shortness of breath at rest, wheezing or other Gastrointestinal Gastrointestinal: Denies abdominal pain, coffee ground emesis, constipation, diarrhea, dyspepsia, hematemesis, hematochezia, loose stools, melena, nausea, vomiting or other Genitourinary Genitourinary: Reports urinary incontinence; Denies burning urination, difficulty urinating, dysuria, hematuria, nocturia, urinary frequency, urinary hesitancy, urinary urgency or other Musculoskeletal Musculoskeletal: Reports joint pain and joint stiffness; Denies arthralgias, back pain, joint swelling, myalgias, neck pain or other Neurologic Neurologic: Denies abnormal gait, abnormal speech, confusion, disequilibrium, dizziness, focal weakness, headache(s), numbness, paresthesias, seizure-like activity, seizures, syncope, tingling, tremor(s) or other Psychiatric Psychiatric: Denies anxiety, depression, homicidal ideation, suicidal ideation or other Endocrine Endocrinology: Denies change in body appearance, cold intolerance, excessive sweating, heat intolerance, polydipsia, polyuria or other Hematologic/Lymphatic Hematologic/Lymphatic: Denies anemia, easy bleeding, easy bruising, lymphadenopathy or other Allergic/Immunologic Allergic/Immunologic: Denies rhinitis, hives, eczemia, asthma or other Vital Signs Vital Signs Vital Signs: 01/28/23 16:42 01/28/23 17:30 01/28/23 20:00 Temperature 97.8 F Temperature Source Temporal Pulse Rate 80 88 Respiratory Rate 18 15 Respiratory Effort Normal Blood Pressure 116/53 L 117/68 Blood Pressure Mean 74 84 Pulse Ox 89 93 Oxygen Delivery Method Room Air Room Air Room Air 01/28/23 21:09 Temperature Temperature Source Pulse Rate 84 Respiratory Rate 17 Respiratory Effort Blood Pressure 124/54 H Blood Pressure Mean 77 Pulse Ox 93 Oxygen Delivery Method Room Air Weight Weight: 70 kg Body Mass Index (BMI) 31.1 Physical Exam Const alert, oriented x3, no apparent distress and well nourished; Negative for average body habitus Constitutional Narrative: Overweight, elderly, white female, sitting up in bed, appears comfortable nontoxic, daughter at bedside, currently on room air with saturations fluctuating between 89 and 93% at rest General Appearance: cooperative HEENT normocephalic and head/scalp atraumatic HEENT Narrative: Patient with upper dental plate in place, mild hearing loss, mucous membranes are moist and Mallampati is 2 Eyes PERRL, EOMs intact bilaterally and conjunctivae normal Eyes Narrative: No scleral icterus Neck no lymphadenopathy, supple, No no JVD and no carotid bruits Neck Narrative: Positive JVD, trachea midline, no thyroid enlargement Resp normal respiratory effort, no retractions, no use of accessory muscles and No clear to auscultation bilaterally Resp Narrative: Scattered crackles more notable at bases bilaterally Auscultation: crackles; Negative for rhonchi or wheezes Cardio regular rate, regular rhythm, S1 normal heart sound, S2 normal heart sound, no murmurs, no rub, no gallops and no clicks GI normal to inspection, nondistended, normoactive bowel sounds, soft to palpation and non-tender Extremity Extremity Narrative: Trace bilateral lower extremity edema, no cyanosis or clubbing Skin no rashes or lesions noted, no wounds, skin turgor normal, no jaundice, no petechiae and no mottling Skin Narrative: Skin is pale Neuro oriented x3, CN's II-XII intact bilaterally, moves all extremities and no focal motor deficits Speech: speech normal Psych affect normal Psych Narrative: Eye contact is good, patient is very pleasant, interacts appropriately Results Lab / Micro Data Attestation: I reviewed the patient's lab results. 01/28/23 17:30 01/28/23 17:30 Labs: Laboratory Results - last 24 hr 01/28/23 17:30: WBC 15.5 H, RBC 2.37 L, Hgb 8.9 L, Hct 26.7 L, MCV 112.7 H, MCH 37.6 H, MCHC 33.3, RDW Std Deviation 64.5 H, RDW Coeff of Maria Del Rosario 16.0 H, Plt Count 402, MPV 10.0, Immature Gran % (Auto) 0.600, Neut % (Auto) 76.0 H, Lymph % (Auto) 10.9 L, Overton % (Auto) 7.3, Eos % (Auto) 4.7, Baso % (Auto) 0.5, Absolute Neuts (auto) 11.8 H, Absolute Lymphs (auto) 1.68, Nucleated RBC % 0.9, Sodium 135 L, Potassium 4.0, Chloride 100, Carbon Dioxide 24.0, Anion Gap 11, BUN 50 H,Creatinine 1.77 H, Estim Creat Clear Calc 25.49, Est GFR (MDRD) Af Amer 35 L, Est GFR (MDRD) Non-Af 29 L, BUN/Creatinine Ratio 28.2 H, Glucose 146 H, Calcium 9.6, Troponin I High Sens 11, B-Natriuretic Peptide 454.1 H Micro: Microbiology 01/28/23 19:30 Nasal Secretion SARS-CoV-2 & FLU Antigen (Rapid) - Final EKG Initial EKG: Attestation: I personally reviewed and interpreted this EKG as follows: Prior EKG tracings: available for review EKG Rhythm Intrepretation: Sinus Rhythm (With new ST wave inversions in [id number] V6) Imagaing Radiology Impression Chest X-Ray 01/28/23 19:15 IMPRESSION: Probable chronic bibasilar interstitial thickening with interval progression since prior study. Cannot exclude superimposed acute inflammatory changes Electronically Signed: Dhruv Rodriguez MD at 19:36 EST Reading Location ID and State: [facility] / [place] Tel , Service support , Assessment & Plan Assessment/Plan (1) ROBINS (dyspnea on exertion): (2) Fatigue: (3) Leukocytosis: (4) Acute on chronic anemia: (5) JOHN (acute kidney injury): (6) Acute on chronic diastolic heart failure: (7) Acute electrocardiogram changes: PLAN: Plan Dyspnea on exertion/fatigue -I think a component of this is related to acute decompensated heart failure with preserved ejection fraction due to abnormal diastolic dysfunction however Geovany concerned that this may be an anginal equivalent as well -We will consult cardiology for consideration for cardiac catheterization versusnoninvasive testing -Baseline renal dysfunction may complicate getting this done -Check echocardiogram -Last echo was done in 2019 and showed an EF of 65% with stage I diastolic dysfunction and no valvular abnormality -Check TSH -Lasix 40 mg IV push twice daily -Daily weights -Accurate I's and O's -Sodium and fluid restricted diet JOHN on CKD stage IIIb -Last serum creatinine was 1.46 on 12/23/2022 -Serum creatinine today is 1.77 indicating mild JOHN -Hold home Lasix and utilize IV Lasix as I am concerned that this may be slight cardiorenal syndrome due to the above -Follow and trend renal function and urine output -Follows with Dr. Safia Montgomery from nephrology as an outpatient EKG changes -Patient now with no chest pain however she does have T wave inversion in V3 2 through V6 that was not present on last reviewed EKG from 2019 -Again I am concerned that her above symptoms may be an anginal equivalent and with EKG findings this solidifies this concern even more -Continue home medications including aspirin, Plavix's, carvedilol and statin -Cycle cardiac enzymes -Cardiology consult pending Acute on chronic diastolic heart failure -Repeat echocardiogram -Check TSH -Treatment as above Leukocytosis -Patient not with any infectious symptoms at this time -COVID flu and respiratory viral panels are pending -Blood cultures are pending -UA is pending -We will hold off on empiric antibiotics at this time -Sed rate and CRP are pending as well Acute on chronic anemia -Macrocytic in nature -Hemoglobin appears to run between 10 and 11 -Hemoglobin today on presentation was 8.9 -Iron studies are pending -Check guaiac stool -Patient denies any black tarry stools or blood in her bowel movements DM-2 -Hold home oral agents -Sliding scale -Cardiac/carb controlled diet -Accu-Cheks as ordered CAD/HTN/HPL -Has known triple-vessel disease with first cardiac catheterization done in 2011with postprocedure complication of pericardial effusion that required pericardial window -Repeat cardiac catheterization in 2019 which demonstrated preserved ejection fraction, proximal LAD luminal irregularities, distal LAD with 80% stenosis, circumflex with mid vessel 75% stenotic lesion and the obtuse marginal had a 95%stenosis. The right coronary artery which was previously stented and almost theentire vessel had 40 to 50% rein-stent stenosis. -Angioplasty was done at that time to the mid circumflex and medical therapy was recommended for the rest of her lesions -Continue home oral antihypertensives -Continue home statin -Continue home aspirin and Plavix Glaucoma -Continue home eyedrops Hypothyroidism -Continue home levothyroxine Check TSH due to fatigue Vitamin D deficiency -Hold home vitamin D supplement and restart at discharge Obesity -Recommend weight loss -Complicates treatment, prognosis, outcomes GERD -Continue home PPI DVT prophylaxis -Heparin SQ 3 times daily CODE STATUS -DNR CCA okay for short-term intubation Charges/Coding Visit Charges Inpatient E&M: 43448 Init Hosp L3 01/28/23 3049 <Electronically signed by Joceline Montgomery DO> Cosigner Signature (if applicable): CC: Dr. Koko Fuentes MD; Dr. Joceline Montgomery DO~ Signed [facility] Work Phone: [phone] Miscellaneous Notes* Telephone Encounter - Marybeth Manuel RN - 01/28/2023 3:22 PM EST Pt has no one with her. She gives permission for nurse to call her daughter and son. She states shespoke to her daughter earlier today and they spoke about pt going to the ER. Protocol recommends that pt go to the ER. Attempted to call daughter Jasmin mcdonald 2 with no answer and also son Giovanni with no answer. Called Gioavnni's home number and reached pt's daughter in law Anaya. Explained the situation and Anaya will go immediately to sp[employer] moss picker pt and take her to the ER. She will also contact both Giovanni andJasmin to let them know what is going on. Reason for Disposition [1] MODERATE difficulty breathing (e.g., speaks in phrases, SOB even at rest, pulse 100-120) AND [2] NEW-onset or WORSE than normal Answer Assessment - Initial Assessment Questions 1. RESPIRATORY STATUS: Pt calling with shortness of breath and difficulty breathing. States with any physical exertion or movement it gets much worse. Pt talking in phrases and sounds SOB. Denies anywheezing. 2. ONSET: States started about a week or so ago but much worse today. 3. PATTERN Breathing difficulty was just with exertion but now noticing it much more even at rest. 4. SEVERITY: Moderate as pt is SOB even at rest and gets much worse with exertion. Speaking in phrases. - MILD: No SOB at rest, mild SOB with walking, speaks normally in sentences, can lie down, no retractions, pulse < 100. - MODERATE: SOB at rest, SOB with minimal exertion and prefers to sit, cannot lie down flat, speaksin phrases, mild retractions, audible wheezing, pulse 100-120. - SEVERE: Very SOB at rest, speaks in single words, struggling to breathe, sitting hunched forward,retractions, pulse > 120 5. RECURRENT SYMPTOM: Pt not really sure but states nothing like this. 6. CARDIAC HISTORY: Pt has 4 heart stents and her manager transfusion Dr. Davenport told her that one of her arteries is 95 percent blocked. 7. LUNG HISTORY: Denies any history of lung disease 8. CAUSE: Pt not sure what might be causing the breathing problem 9. OTHER SYMPTOMS: Denies dizziness, runny nose, chest pain, or fever States has a little cough off and on. Non productive. 10. O2 SATURATION MONITOR: Pt does not have a pulse ox or a BP machine 11. : n/a 12. TRAVEL: denies Protocols used: Breathing [id number] documented in this encounterMer[facility]-2023 Miscellaneous Notes* Telephone Encounter - Trina Moore LPN - 12/24/2022 9:16 AM EDT Phoned patient and reviewed results and recommendations with her. Patient voiced understanding. * Telephone Encounter - Sarah Cormier APRN.CNP - 12/23/2022 5:06 PM EDT A1c up to 7.9% from 7.6%, still under goal of less than 8%. Recommend working on low carbohydrate diet and aim for at least 150 minutes of exercise per week. Continue current medications. TSH in [place], continue synthroid. Sarah Cormier APRN.RICHARD documented in this encounterMer[facility]10-10-2023 History of Present illness Narrative* Frank Fuentes MD - 12/22/2022 10:40 AM EDT Chief Complaint Patient presents with: Follow Up: 6 month- does want Flu and Covid today. HPI Neelam Ryan is a 87 year old female who presents here today for 3 month DM follow up. DIABETES MELLITUS: Ms. Ryan was last seen 3 months ago. Since our last visit she denies excessive thirst or increased frequency of urination, numbness, tingling or pain in extremities, new or unusual visual symptoms, and low sugar/hypoglycemic reactions. Follows a diabetic diet most of the time. She is compliant with medication(s) and is tolerating med(s) without any side effects. She reportschecking her glucose on a once a day schedule with sugars in the fasting 130-185 range with typicalreadings in the 135-160 range . Patient's last HgA1C was Hemoglobin A1C (%) Date Value 09/22/2022 7.6 06/22/2022 7.6 12/12/2020 7.8 06/11/2020 8.1 ) Last Ophthalmology exam was within the past 12 months Last Podiatry exam was within the past 12 months Basal cell carcinoma removed about 3 weeks ago from left upper arm by Dr. Lambert. Healing well. Treating with Cerave daily. Has follow up in 2 weeks. Admits to mild TTP and clear drainage this morning. Denies fever/chills. Taking synthroid at night instead of in the morning. Asymptomatic on current regimen. Due for repeat TSH. BP well controlled. Admits to fall in the grocery store 2 months ago. Tripped on mat by [employer]. Had large bruise on right arm which is nearly resolved. Denies joint pain or swelling. Normal ROM. Did not have head injury or LOC. Has follow up with Dr. Montgomery's office next week for CKD stage IV. Labs ordered for tomorrow. Past medical history, appointments, medications, allergies reviewed. Previous Medical History PAST MEDICAL HISTORY Diagnosis Date Basal cell carcinoma Cholecystitis, unspecified Chronic kidney disease (CKD), stage IV (severe) (HCC) Dr. Montgomery Coronary atherosclerosis of unspecified type of vessel, tulalip or graft Dr. Davenport Depression Hammertoes of both feet Multinodular goiter 05/21/2016 Osteoarthritis Other and unspecified anemias Pure hypercholesterolemia Sciatica Swelling of lower extremity Type II or unspecified type diabetes mellitus without mention of complication, not stated as uncontrolled Podiatry-Dr. Mcgee Unspecified essential hypertension Unspecified hypothyroidism Previous Surgical History PAST SURGICAL HISTORY Procedure Laterality Date COLONOSCOPY FLX DX W/COLLJ SPEC WHEN PFRMD 01/30/2005 Colonoscopy COLONOSCOPY FLX DX W/COLLJ SPEC WHEN PFRMD 08/05/2015 Colonoscopy ESOPHAGOGASTRODUODENOSCOPY TRANSORAL DIAGNOSTIC 01/30/2005 EGD HEART CATHETERIZATION 09/2018 angiopasty of circumflex, 75% stenosis. LAD 80%. LAPAROSCOPY SURG CHOLECYSTECTOMY 12/02/2005 Cholecystectomy, lap PAST SURGICAL HISTORY OF hernia PAST SURGICAL HISTORY OF carpal tunnel both hands PAST SURGICAL HISTORY OF fingers different times PAST SURGICAL HISTORY OF trigger finger PAST SURGICAL HISTORY OF 06/21/2006 heart cath with stent placement [facility] PAST SURGICAL HISTORY OF 04/24/2008 vaginal hysterectomy, bladder suspension, rectocele PAST SURGICAL HISTORY OF 11/20/11 cardiac cath; percutaneous transluminal coronary angioplasty with stent @ [facility] PAST SURGICAL HISTORY OF left wrist surgery TOTAL THYROID LOBECTOMY UNI W/WO ISTHMUSECTOMY Right 05/21/2016 TRANSCATH STENT INIT VESSEL,PERCUT 08/18 Transcath stent init vessel percut LAD T[facility] Family History FAMILY HISTORY Problem Relation Age of Onset Diabetes Mother CAD, ANGIOPLASTY Diabetes Father DC other (DC) Brother other (OHS) Sister other (DC) Brother Heart Sister diabetic Heart Sister Heart Sister diabetic Heart Sister diabetic Patient Allergies ALLERGIES Allergen Reactions Accupril [Quinapril* Cough Sulfa (Sulfonamide * Hives Atorvastatin Myalgia Benzonatate Hives Gabapentin Other: See Comments fatigue Simvastatin Other: See Comments Current Medications Current Outpatient Medications on File Prior to Visit Medication Sig citalopram (CELEXA) 20 mg tablet Take 1 tablet by mouth once daily. folic acid 1 mg tablet Take 2 tablets by mouth once daily. amLODIPine (NORVASC) 5 mg tablet Take 1 tablet by mouth once daily. isosorbide mononitrate ER (IMDUR) 60 mg 24 hr tablet Take 1 tablet by mouth once daily. glipiZIDE (GLUCOTROL) 5 mg tablet Take 1 1/2 tablets PO in the morning and 1 tablet PO at night. pantoprazole DR (PROTONIX) 40 mg tablet Take 1 tablet by mouth daily before breakfast. Take on empty stomach, 1/2 hr before meal. furosemide (LASIX) 20 mg tablet Take 1 tablet by mouth once daily. carvedilol (COREG) 25 mg tablet Take 1 tablet by mouth twice daily. pravastatin (PRAVACHOL) 80 mg tablet Take 1 tablet by mouth daily at bedtime. clopidogrel (PLAVIX) 75 mg tablet Take 1 tablet by mouth once daily. mecobalamin, vitamin B12, 1,000 mcg chew Take by mouth. levothyroxine (LEVOXYL) 75 mcg tablet Take 1 tablet by mouth once daily. SITagliptin phosphate (JANUVIA) 50 mg tablet Take 1 tablet by mouth once daily. nitroglycerin sublingual (NITROQUICK) 0.4 mg SL tablet Dissolve 1 tablet under the tongue as needed. DISSOLVE ONE(1) TABLET UNDER THE TOUNGUE NEEDED FOR CHEST PAIN,EVERY 5 MIN X3 Cholecalciferol, Vitamin D3, 1,000 unit cap Take 1 capsule by mouth once daily. Cranberry 500 mg cap Take 1 tablet by mouth once daily. aspirin(ECOTRIN LOW STRENGTH 81 MG TAB) Take one(1) tablet daily. XALATAN 0.005 % EYE DROPS one drop each eye at [facility] blood sugar diagnostic (BLOOD GLUCOSE TEST) test strip Prodigy Glucometer Test blood sugar(s) 1 time daily. Dx: Type 2 DM - Controlled E11.9 Insulin: No Lancets lancets Test blood sugar(s) 1 times daily. Dx: Type 2 DM - Controlled E11.9 Insulin: No COMPOUNDED PRESCRIPTION Prodigy Glucometer test strips Test once daily. Dx: E11.9 Insulin: No COMPOUNDED PRESCRIPTION Lancets Test once daily. Dx: E11.9 Insulin: No No current facility-administered medications on file prior to visit. Social History Social History Tobacco Use Smoking status: Never Smokeless tobacco: Never Vaping Use Vaping Use: Never used Substance Use Topics Alcohol use: No Drug use: No Review of Symptoms REVIEW OF SYSTEMS GENERAL: No weight loss, malaise or fevers RESPIRATORY: Negative for cough, hemoptysis, wheezing, COPD, dyspnea or shortness of breath CARDIOVASCULAR: Negative for chest pain, leg swelling, hypertension, CHF or palpitations GI: No nausea, vomiting, or diarrhea SKIN: See HPI EXAM: BP 130/70 Pulse 73 Resp 16 Wt 72.6 kg (160 lb) SpO2 94% BMI 32.32 kg/m General Appearance: Well appearing, alert, in no acute distress, well-hydrated, well nourished.. Skin: faint bruising on right upper arm without hematoma or TTP. No bony TTP or step off. Healing surgical site of left upper arm with scabbing and redness without cellulitis or abscess. Lungs: Lungs clear to auscultation. No wheezing, rhonchi, rales.. Heart: RRR without murmur, gallop, or rubs. No ectopy. Abdomen: Normal abdominal exam, Abdomen soft, non-tender. Bowel sounds normal. No masses, organomegaly. Extremities: No deformities, edema, skin discoloration, clubbing or cyanosis. Good capillary refill. . Musculoskeletal: No joint swelling, deformity, or tenderness. Normal ROM of right arm and shoulder without pain. Health Maintenance List Shingrix Vaccine(1 of 2) Never done Hepatitis B Vaccine(1 of 3 - Risk 3-dose series) Never done Advance Directive Discussion Never done Influenza Vaccine(1) due on 11/13/2022 Covid-19 Vaccine(6 - 2022- season) due on 11/13/2022 Dilated Retinal Exam due on 12/29/2022 HbA1C due on 03/25/2023 Diabetic Foot Exam due on 05/14/2023 Urine Albumin:Creatinine Ratio due on 06/23/2023 LDL Cholesterol due on 06/23/2023 DTaP,Tdap,Td Vaccine(6 - Td or Tdap) due on 06/22/2032 Bone Density Screening Completed Pneumococcal Vaccine: 65+ Completed Data reviewed Component Latest Ref Rng & Units 06/22/2022 09/22/2022 Protein, Total 6.3 - 8.0 g/dL 6.9 Albumin 3.9 - 4.9 g/dL 3.9 Calcium 8.5 - 10.2 mg/dL 9.7 Bilirubin, Total 0.2 - 1.3 mg/dL 0.4 Alkaline Phosphatase 34 - 123 U/L 57 AST 13 - 35 U/L 14 ALT 7 - 38 U/L 9 Glucose 74 - 99 mg/dL 275 (H) BUN 7 - 21 mg/dL 36 (H) Creatinine 0.58 - 0.96 mg/dL 1.22 (H) Sodium 136 - 144 mmol/L 136 Potassium 3.7 - 5.1 mmol/L 4.7 Chloride 97 - 105 mmol/L 101 CO2 22 - 30 mmol/L 23 Anion Gap 9 - 18 mmol/L 12 eGFR >=60 mL/min/1.73m 43 (L) Total Cholesterol, Nonfasting <200 mg/dL 152 Triglycerides, Nonfasting <150 mg/dL 146 HDL Cholesterol, Nonfasting >39 mg/dL 59 LDL Cholesterol, Nonfasting <100 mg/dL 64 Non HDL Cholesterol, Nonfasting <130 mg/dL 93 VLDL Cholesterol, Nonfasting <30 mg/dL 29 Total Chol/HDL Ratio, Nonfasting <5.10 mg/dL 2.58 LDL/HDL Ratio, Nonfasting <2.54 mg/dL 1.08 Creatinine, Ur Random (UCRR) 20.0 - 300.0 mg/dL 19.1 (L) Albumin, Urine Random mg/L 32.1 Albumin/Creat Ratio <30 mg/g 168 (H) Hemoglobin A1C 4.3 - 5.6 % 7.6 (H) 7.6 (H) Estimated Average Glucose mg/dL 171 171 ASSESSMENT/PLAN: 1. Type 2 diabetes mellitus without complication, without long-term current use of insulin (HCC) - ICD9: 250.00, ICD10: E11.9 (primary diagnosis) - Control undetermined, due for labs - Continue current medications - Blood glucose monitoring on a once daily schedule - Counseled on healthy diet and regular exercise - Discussed need for and benefit of weight loss. BMI 32.32 kg/(m^2) - Discussed diabetic education issues of diabetes complications and monitoring required, hypoglycemic/hyperglycemic symptoms, and medication-specific side effects and monitoring - Follow up in 3 months, sooner should any other issues arise. - HGB A1C 2. Essential hypertension - ICD9: 401.9, ICD10: I10 - Controlled - Continue current medications - Recommend home blood pressure monitoring, to bring results to next visit - Encouraged sodium restriction, DASH or Mediterranean diet - Recommend regular aerobic exercise - COMP METABOLIC PANEL 3. Stage 3b chronic kidney disease (HCC) - ICD9: 585.3, ICD10: N18.32 - eGFR: 43 Stable - Counseled on avoiding NSAIDs, adequate hydration - Counseled on low sodium diet - Follow up with kidney medicine - COMP METABOLIC PANEL 4. Mixed hyperlipidemia - ICD9: 272.2, ICD10: E78.2 - Controlled - Continue current medications - Counseled on healthy diet and regular exercise 5. Acquired hypothyroidism - ICD9: 244.9, ICD10: E03.9 - Instructed patient on importance of taking on an empty stomach either first thing in the morning or at bedtime. - check TSH today - continue current dose of Synthroid 0.075 mg - TSH BLD 6. ASHD (arteriosclerotic heart disease) - ICD9: 414.00, ICD10: I25.10 Asymptomatic on medical management. F/u with cardiology as scheduled. Red flags for re-assessment reviewed with patient in detail. 7. Gastroesophageal reflux disease, unspecified whether esophagitis present - ICD9: 530.81, ICD10: K21.9 - Continue treatment with Protonix QD 8. Need for vaccination - ICD9: V05.9, ICD10: Z23 9. Encounter for immunization - ICD9: V03.89, ICD10: Z23 - [employer] COVID-19 VACCINE ( SEASON) AGE 12+ YR - INFLUENZA VACCINE, PRSV FREE, AGE 65+ YR, HIGH DOSE, QUADRIVALENT (FLUZONE HIGH-DOSE) Frank Fuentes MD documented in this encounterMer[facility]10-02-2023 Miscellaneous Notes* Telephone Encounter - Brisa Campos MA - 12/14/2022 11:18 AM EDT NOV 12/22/22 Brisa Campos MA * Telephone Encounter - Laurita Fu - 12/14/2022 8:52 AM EDT Patient has been identified by name and date of : Yes Last office visit in this department: 09/22/2022 RX INSTRUCTIONS: Patient aware RX will be sent to pharmacy. No need to notify patient. Patient phones requesting refills as follows: Requested Prescriptions Pending Prescriptions Disp Refills citalopram (CELEXA) 20 mg tablet 90 tablet 1 Sig: Take 1 tablet by mouth once daily. Please review and advise. Laurita Fu documented in this encounterMercy [facility]09-20-2023 History of Present illness Narrative* Karolina Mcgee - 12/02/2022 2:15 PM EDT Last saw pcp: 09/22/22 Subjective: Patient presents to clinic c/o painful toenails. They state that the nails are especially painful with shoe gear and pressure. Patient states that nails 1-5 b/l are painful. Patient admits to being diabetic. . No other pedal complaints at this time. Patient states no change in medications or medical history since last visit. Objective: Patient presents to clinic ambulating in eakers Vasc: DP and PT pulses are faintly palpable bilateral. CFT is less than 5 seconds bilateral. Skin temperature is warm to cool proximal to distal bilateral. There is mild edema or varicosities noted. Neuro: Protective sensation is intact to the foot and toes when tested with the 5.07 SWM bilateral.Vibratory sensation is decreased at the hallux IPJ bilateral. The hallux is downgoing bilateral. Derm: Nails 1-5 b/l are painful, discolored-yellow, thick, crumbly, dystrophic and with subungal debris. Skin is of normal turgor, texture and hair growth is present bilateral. There are no hyperkeratosis, ulcerations, scars, verruca or other lesions noted. Ortho: Muscle strength is 5/5 for all pedal groups tested. Ankle joint DF is decreased with the knee extended with no pain or crepitus noted. 1st MPJ ROM is decreased bilateral. Bunion is noted b/l feet. There is hammertoe of b/l 2nd toe Assessment: (B35.1) Onychomycosis (primary encounter diagnosis) (M79.674) Pain in toe of right foot (M79.675) Pain in toe of left foot (E11.9) Type 2 diabetes mellitus without complication, without long-term current use of insulin (HCC) hammertoe Plan: Patient was seen and evaluated. Nails 1-5 bilateral were debrided in length and thickness. Patient was instructed on the continued importance of diabetic foot care along with proper diet andkeeping their blood sugar under control to prevent complications. Continue with hammertoe pad for hammertoe. Patient is to RTC in 3-4 months. Karolina Mcgee DPM * Marisol Hu RN - 12/02/2022 1:53 PM EDT Patient presents with: Left Foot - Established Patient, Follow Up, Diabetic Foot Care Right Foot - Established Patient, Follow Up, Diabetic Foot Care Patient presents for 3 month diabetic foot care and nail trim. Denies any new pain or problems at this time. documented in this encounterMercy [facility]09-20-2023 Instructions* Patient Instructions* Karolina Mcgee - 12/02/2022 2:15 PM EDT Diabetes Foot Care Instructions When you have diabetes, proper foot care is very important. Poor foot care may lead to amputation of a foot or leg. As a person with diabetes, you are more vulnerable to foot problems, because diabetes can damage your nerves and reduce blood flow to your feet. Here are some diabetes foot care tips to follow: Wash and Dry Your Feet Daily Use mild soaps Use warm water Pat your skin dry; do not rub. Thoroughly dry your feet. After washing, use lotion on your feet to prevent cracking. Do not put lotion between your toes. Examine Your Feet Each Day Check the tops and bottoms of your feet. Have someone else look at your feet if you cannot see them. Check for dry, cracked skin. Look for blisters, cuts, scratches, or other sores. Check for redness, increased warmth, or tenderness when touching any area of your feet. Check for ingrown toenails, corns, and calluses. If you get a blister or sore from your shoes, do not pop it. Apply a bandage and wear a differentpair of shoes. Take Care of Your Toenails Cut toenails after bathing, when they are soft. Cut toenails straight across and smooth with a nail file. Avoid cutting into the corners of toes. Do not cut cuticles. If you have neuropathy (or decreased sensation in your feet) a finish saw operator should always cut your toenails. Be Careful When Exercising Walk and exercise in comfortable shoes. Do not exercise when you have open sores on your feet. Protect Your Feet With Shoes and Socks Never go barefoot. Always protect your feet by wearing shoes or hard-soled slippers or footwear. Avoid shoes with high heels and pointed toes. Avoid shoes that expose your toes or heels (such as open-toed shoes or sandals). These types of shoes increase your risk for injury and potential infections. Try on new footwear with the type of socks you usually wear. Do not wear new shoes for more than an hour at a time. Change your socks daily. Look and feel inside your shoes before putting them on to make sure there are no foreign objects orrough areas. Avoid tight socks. Wear natural-fiber socks (cotton, wool, or a cotton-wool blend). Wear special shoes if your health care provider recommends them. Wear shoes/boots that will protect your feet from various weather conditions (cold, moisture, etc.). Make sure your shoes fit properly. If you have neuropathy (nerve damage), you may not notice that your shoes are too tight. Perform the footwear test described below. Footwear Test Use this simple test to see if your shoes fit correctly: Stand on a piece of paper. (Make sure you are standing and not sitting, because your foot changes shape when you stand.) Trace the outline of your foot. Trace the outline of your shoe. Compare the tracings: Is the shoe too narrow? Is your foot crammed into the shoe? The shoe should be at least 1/2 inch longer than your longest toe and as wide as your foot. Proper Shoe Choices The following types of shoes are best for people with diabetes Closed toes and heels Leather uppers without a seam inside At least 1/2 inch extra space at the end of your longest toe Inside of shoe should be soft with no rough areas Outer sole should be made of stiff material Shoes should be at least as wide as your feet Tips for Foot Care in Diabetes Don't wait to treat a minor foot problem if you have diabetes. Follow your health care provider's guidelines and first aid guidelines. Report foot injuries and infections to your health care provider immediately. Check water temperature with your elbow, not your foot. Do not use a heating pad on your feet. Do not cross your legs. Do not self-treat your corns, calluses, or other foot problems. Go to your health care provider or finish saw operator to treat these conditions. documented in this encounterMer[facility]07-31-2023 Miscellaneous Notes* Telephone Encounter - Priyanka Hobbs - 10/12/2022 11:10 AM EDT Pharmacy verified in [facility] Patient has been identified by name and date of : Yes Patient aware RX will be sent to pharmacy. No need to notify patient. Patient phones for refill(s): Requested Prescriptions Pending Prescriptions Disp Refills amLODIPine (NORVASC) 5 mg tablet 90 tablet 1 Sig: Take 1 tablet by mouth once daily. Date of last office visit : 09/22/2022 Labs-09/22/22 Date of next office visit : 12/22/2022 Last 2 Encounter Wt Readings: Date: Wt: 09/22/2022 73.7 kg (162 lb 6.4 oz) 06/22/2022 74.6 kg (164 lb 6.4 oz) Not applicable Please advise. Priyanka Kurtz documented in this encounterMercy [facility]07-14-2023 Miscellaneous Notes* Telephone Encounter - Trina Moore LPN - 09/25/2022 1:11 PM EDT Patient notified of results, verbalizes understanding of instructions. Trina Moore LPN * Telephone Encounter - Sarah Cormier APRN.RICHARD - 09/25/2022 6:28 AM EDT Please call patient and let her know A1c the same as last check- work on lower carbohydrate diet and aim for at least 150 minutes of exercise per week. Kidney function remains decreased but stable. Continue to eat low salt diet, avoid NSAID products and stay well hydrated. Sarah Cormier APRN.CNP documented in this encounterMercy [facility]07-11-2023 History of Present illness Narrative* Sarah Cormier APRN.CNP - 09/22/2022 1:20 PM EDT 09/22/2022 Patient presents with: Recheck: 3 month diabetes follow up SUBJECTIVE: This is a 87 year old that is here today for Above Complaints. Since last office visit has been in good health without ER visits or hospitalizations. No recent falls DIABETES MELLITUS: Since our last visit she denies excessive thirst or increased frequency of urination, chest pain or dyspnea , numbness, tingling or pain in extremities, new or unusual visual symptoms, low sugar/hypoglycemic reactions, weight loss/gain, lightheadedness/dizziness, and bowel changes/loose stools. Follows a diabetic diet most of the time. She is compliant with medication(s) and istolerating med(s) without any side effects. She reports checking her glucose on a once a day schedule with sugars in the <200 range. Patient's last HgA1C was Hemoglobin A1C (%) Date Value 06/22/2022 7.6 12/19/2021 7.1 12/12/2020 7.8 06/11/2020 8.1 ) Last Ophthalmology exam was within the past 12 months Following with podiatry for onychomycosis with last office visit on 08/28/2022 CAD: had follow-up with [facility] manager transfusion yesterday. Admits to SOB however this is chronic. T times has some mild leg edema. Isosorbide changed to 60 mg. Denies dyspnea, chest pain, or palpitation HTN: Patient is compliant with meds Yes Monitors bp at home: No. Denies side effects: Yes. Chest pain: No. Dyspnea: No. Edema: occasionally . Palpitations: No. Syncope: No. Headache: No. Dizziness: No. HYPOTHYROIDISM: taking synthroid as prescribed without side effects CKD: follows with Dr. Montgomery every 6 months. Last office visit on 05/21/2022 with next appointment scheduled for 12/30/2022. No medication changes at last office visit PAST MEDICAL HISTORY Diagnosis Date Basal cell carcinoma Cholecystitis, unspecified Chronic kidney disease (CKD), stage IV (severe) ([facility]) Dr. Montgomery Coronary atherosclerosis of unspecified type of vessel, tulalip or graft Dr. Issac Pulliam Hammertoantoine of both feet Multinodular goiter 05/21/2016 Osteoarthritis Other and unspecified anemias Pure hypercholesterolemia Sciatica Swelling of lower extremity Type II or unspecified type diabetes mellitus without mention of complication, not stated as uncontrolled Podiatry-Dr. Mcgee Unspecified essential hypertension Unspecified hypothyroidism ALLERGIES Accupril [Quinapril Hcl], Sulfa (Sulfonamide Antibiotics), Atorvastatin, Benzonatate, Gabapentin, and Simvastatin MEDICATIONS Current Outpatient Medications Medication Sig glipiZIDE (GLUCOTROL) 5 mg tablet Take 1 1/2 tablets PO in the morning and 1 tablet PO at night. pantoprazole DR (PROTONIX) 40 mg tablet Take 1 tablet by mouth daily before breakfast. Take on empty stomach, 1/2 hr before meal. furosemide (LASIX) 20 mg tablet Take 1 tablet by mouth once daily. carvedilol (COREG) 25 mg tablet Take 1 tablet by mouth twice daily. pravastatin (PRAVACHOL) 80 mg tablet Take 1 tablet by mouth daily at bedtime. clopidogrel (PLAVIX) 75 mg tablet Take 1 tablet by mouth once daily. mecobalamin, vitamin B12, 1,000 mcg chew Take by mouth. levothyroxine (LEVOXYL) 75 mcg tablet Take 1 tablet by mouth once daily. citalopram (CELEXA) 20 mg tablet Take 1 tablet by mouth once daily. SITagliptin phosphate (JANUVIA) 50 mg tablet Take 1 tablet by mouth once daily. amLODIPine (NORVASC) 5 mg tablet Take 1 tablet by mouth once daily. blood sugar diagnostic (BLOOD GLUCOSE TEST) test strip Prodigy Glucometer Test blood sugar(s) 1 time daily. Dx: Type 2 DM - Controlled E11.9 Insulin: No folic acid 1 mg tablet Take 2 tablets by mouth once daily. isosorbide mononitrate ER (IMDUR) 30 mg 24 hr tablet Take 1 tablet by mouth once daily. nitroglycerin sublingual (NITROQUICK) 0.4 mg SL tablet Dissolve 1 tablet under the tongue as needed. DISSOLVE ONE(1) TABLET UNDER THE TOUNGUE NEEDED FOR CHEST PAIN,EVERY 5 MIN X3 Lancets lancets Test blood sugar(s) 1 times daily. Dx: Type 2 DM - Controlled E11.9 Insulin: No COMPOUNDED PRESCRIPTION Prodigy Glucometer test strips Test once daily. Dx: E11.9 Insulin: No Cholecalciferol, Vitamin D3, 1,000 unit cap Take 1 capsule by mouth once daily. COMPOUNDED PRESCRIPTION Lancets Test once daily. Dx: E11.9 Insulin: No Cranberry 500 mg cap Take 1 tablet by mouth once daily. aspirin(ECOTRIN LOW STRENGTH 81 MG TAB) Take one(1) tablet daily. XALATAN 0.005 % EYE DROPS one drop each eye at [facility] No current facility-administered medications for this visit. Medications and allergies reviewed by this provider. SOCIAL HISTORY Social History Tobacco Use Smoking status: Never Smokeless tobacco: Never Vaping Use Vaping Use: Never used Substance Use Topics Alcohol use: No Drug use: No REVIEW OF SYSTEMS All other reviewed and negative other than HPI. OBJECTIVE: BP 120/56 Pulse 82 Resp 16 Wt 73.7 kg (162 lb 6.4 oz) SpO2 95% BMI 32.80 kg/m . Vital signs reviewed by this provider. APPEARANCE Well appearing, alert, in no acute distress, well-hydrated, well nourished. EYES conjunctiva and sclera normal. HEART RRR with normal S1 and S2, no murmurs, no gallops, no JVD appreciated LUNG clear to auscultation. No wheezes, rhonchi or rales EXTREMITIES Extremities normal, No deformities, No skin discoloration, and No edema SKIN Skin color, texture, turgor normal, no suspicious rashes or lesions to exposed sk in Component Latest Ref Rng & Units 06/22/2022 Total Cholesterol, Nonfasting <200 mg/dL 152 Triglycerides, Nonfasting <150 mg/dL 146 HDL Cholesterol, Nonfasting >39 mg/dL 59 LDL Cholesterol, Nonfasting <100 mg/dL 64 Non HDL Cholesterol, Nonfasting <130 mg/dL 93 VLDL Cholesterol, Nonfasting <30 mg/dL 29 Total Chol/HDL Ratio, Nonfasting <5.10 mg/dL 2.58 LDL/HDL Ratio, Nonfasting <2.54 mg/dL 1.08 Creatinine, Ur Random (UCRR) 20.0 - 300.0 mg/dL 19.1 (L) Albumin, Urine Random mg/L 32.1 Albumin/Creat Ratio <30 mg/g 168 (H) Hemoglobin A1C 4.3 - 5.6 % 7.6 (H) Estimated Average Glucose mg/dL 171 Component Latest Ref Rng & Units 12/19/2021 TSH 0.270 - 4.200 mIU/L 1.020 ADVANCE DIRECTIVE DISCUSSION Never done COVID-19 VACCINE(6 - Pfizer series) due on 04/21/2022 SHINGRIX VACCINE(1 of 2) due on 12/19/2022 INFLUENZA(1) due on 11/13/2022 HBA1C due on 12/22/2022 DILATED RETINAL EXAM due on 12/29/2022 DIABETIC FOOT EXAM due on 05/14/2023 URINE ALBUMIN:CREATININE RATIO due on 06/23/2023 LDL CHOLESTEROL due on 06/23/2023 DTAP,TDAP,TD(6 - Td or Tdap) due on 06/22/2032 BONE DENSITY Completed PNEUMOCOCCAL: 65+ Completed ASSESSMENT/PLAN: 1. Type 2 diabetes mellitus without complication, without long-term current use of insulin (HCC) - ICD9: 250.00, ICD10: E11.9 (primary diagnosis) - Controlled - Continue current medications - Counseled on healthy diet and regular exercise - Discussed need for and benefit of weight loss. BMI 32.80 kg/(m^2) - Follow up in 3 months, sooner should any other issues arise. - HGB A1C - COMP METABOLIC PANEL 2. Acquired hypothyroidism - ICD9: 244.9, ICD10: E03.9 - Instructed patient on importance of taking on an empty stomach either first thing in the morning or at bedtime. - continue current dose 3. ASHD (arteriosclerotic heart disease) - ICD9: 414.00, ICD10: I25.10 - stable - continue current medications - follow-up with cardiology as recommended 4. Essential hypertension - ICD9: 401.9, ICD10: I10 - Controlled - Continue current medications - Recommend home blood pressure monitoring, to bring results to next visit - Encouraged sodium restriction, DASH or Mediterranean diet - Recommend regular aerobic exercise - Discussed need for and benefit of weight loss. BMI 32.80 kg/(m^2) - Follow up in 3 months for hypertension visit 5. Stage 3b chronic kidney disease (HCC) - ICD9: 585.3, ICD10: N18.32 - eGFR: Stable - Counseled on avoiding NSAIDs, adequate hydration - Follow up with kidney medicine as scheduled Sarah Cormier APRN.CAR REFINISHER Prescription instructions reviewed with patient as applicable. Patient advised if symptoms do not improve or if symptoms worsen sooner, to contact their primary care physician. Potential red flag symptoms discussed with the patient. Reviewed appropriate action plan to take if red flag symptoms occur. Patient agreeable to treatment plan. I spent a total of 30 minutes on the date of the service which included preparing to see the patient, [id number] patient care, completing clinical documentation, obtaining and/or reviewing separately obtained history, performing a medically appropriate examination, counseling and educating the pat ient/family/caregiver, and ordering medications, tests, or procedures. documented in this encounterMercy [facility] Hospital06-26-2023 Miscellaneous Notes* Telephone Encounter - Joceline Varela Ma - 09/07/2022 3:44 PM EDT Last office visit: 06/22/22 F/u scheduled: 09/22/22 Joceline Varela Ma * Telephone Encounter - Caprice Ponce - 09/07/2022 11:30 AM EDT Patient has been identified by name and date of : Yes Requested Prescriptions Pending Prescriptions Disp Refills glipiZIDE (GLUCOTROL) 5 mg tablet 225 tablet 1 Sig: Take 1 1/2 tablets PO in the morning and 1 tablet PO at night. pantoprazole DR (PROTONIX) 40 mg tablet 90 tablet 1 Sig: Take 1 tablet by mouth daily before breakfast. Take on empty stomach, 1/2 hr before meal. furosemide (LASIX) 20 mg tablet 90 tablet 1 Sig: Take 1 tablet by mouth once daily. RX INSTRUCTIONS: Patient aware RX will be sent to pharmacy. No need to notify patient. Caprice Ponce documented in this encounterMercy Health [facility]06-16-2023 History of Present illness Narrative* Karolina Arely - 08/28/2022 2:09 PM EDT Last saw PCP: 06/22/22 Subjective: Patient presents to clinic c/o painful toenails. They state that the nails are especially painful with shoe gear and pressure. Patient states that nails 1-5 b/l are painful. Also complains of pain in right 2nd toe. Patient admits to being diabetic. No other pedal complaints at this time. Patient states no change in medications or medical history since last visit. Objective: Patient presents to clinic ambulating in diabetic shoes Vasc: DP and PT pulses are palpable bilateral. CFT is less than 5 seconds bilateral. Skin temperature is warm to cool proximal to distal bilateral. There is no edema or varicosities noted. Neuro: Protective sensation is intact to the foot and toes when tested with the 5.07 SWM bilateral.Vibratory sensation is decreased at the hallux IPJ bilateral. The hallux is downgoing bilateral. Derm: Nails 1-5 b/l are painful, discolored-yellow, thick, crumbly, dystrophic and with subungal debris. Skin is of normal turgor, texture and hair growth is present bilateral. There are corn to right 2nd toe dorsal pipj. No ulcerations, scars, verruca or other lesions noted. Ortho: Muscle strength is 5/5 for all pedal groups tested. Ankle joint DF is full with the knee extended with no pain or crepitus noted. 1st MPJ ROM is decreased bilateral. There is hammertoe of b/l 2nd toe. Mild bunion deformity b/l. Assessment: (B35.1) Onychomycosis (primary encounter diagnosis) (M79.674) Pain in toe of right foot (M79.675) Pain in toe of left foot (E11.9) Type 2 diabetes mellitus without complication, without long-term current use of insulin (HCC) (M20.12) Acquired hallux valgus of left foot (M20.11) Acquired hallux valgus of right foot (L84) Callus (M20.41) Hammer toe of right foot Plan: Patient was seen and evaluated. Nails 1-5 bilateral were debrided in length and thickness. Discussed corn of right 2nd toe. This is caused by a hammertoe of right 2nd toe due to bunion. Options include wider shoes, use of gel padding to prevent rubbing vs surgical reconstruction. At her age, if she were interested in reconstruction, would probably consider more 2nd toe amputation rather than major reconstruction. She has elected to try padding first. Callus reduced to right 2nd toe with dremmel. Patient was instructed on the continued importance of diabetic foot care along with proper diet andkeeping their blood sugar under control to prevent complications. Patient is to RTC in 3-4 months. Karolina Mcgee DPM documented in this encounterMercy Health [facility] Hospital06-16-2023 Instructions* Patient Instructions* Karolina Mcgee - 08/28/2022 2:09 PM EDT Diabetes Foot Care Instructions When you have diabetes, proper foot care is very important. Poor foot care may lead to amputation of a foot or leg. As a person with diabetes, you are more vulnerable to foot problems, because diabetes can damage your nerves and reduce blood flow to your feet. Here are some diabetes foot care tips to follow: Wash and Dry Your Feet Daily Use mild soaps Use warm water Pat your skin dry; do not rub. Thoroughly dry your feet. After washing, use lotion on your feet to prevent cracking. Do not put lotion between your toes. Examine Your Feet Each Day Check the tops and bottoms of your feet. Have someone else look at your feet if you cannot see them. Check for dry, cracked skin. Look for blisters, cuts, scratches, or other sores. Check for redness, increased warmth, or tenderness when touching any area of your feet. Check for ingrown toenails, corns, and calluses. If you get a blister or sore from your shoes, do not pop it. Apply a bandage and wear a differentpair of shoes. Take Care of Your Toenails Cut toenails after bathing, when they are soft. Cut toenails straight across and smooth with a nail file. Avoid cutting into the corners of toes. Do not cut cuticles. If you have neuropathy (or decreased sensation in your feet) a finish saw operator should always cut your toenails. Be Careful When Exercising Walk and exercise in comfortable shoes. Do not exercise when you have open sores on your feet. Protect Your Feet With Shoes and Socks Never go barefoot. Always protect your feet by wearing shoes or hard-soled slippers or footwear. Avoid shoes with high heels and pointed toes. Avoid shoes that expose your toes or heels (such as open-toed shoes or sandals). These types of shoes increase your risk for injury and potential infections. Try on new footwear with the type of socks you usually wear. Do not wear new shoes for more than an hour at a time. Change your socks daily. Look and feel inside your shoes before putting them on to make sure there are no foreign objects orrough areas. Avoid tight socks. Wear natural-fiber socks (cotton, wool, or a cotton-wool blend). Wear special shoes if your health care provider recommends them. Wear shoes/boots that will protect your feet from various weather conditions (cold, moisture, etc.). Make sure your shoes fit properly. If you have neuropathy (nerve damage), you may not notice that your shoes are too tight. Perform the footwear test described below. Footwear Test Use this simple test to see if your shoes fit correctly: Stand on a piece of paper. (Make sure you are standing and not sitting, because your foot changes shape when you stand.) Trace the outline of your foot. Trace the outline of your shoe. Compare the tracings: Is the shoe too narrow? Is your foot crammed into the shoe? The shoe should be at least 1/2 inch longer than your longest toe and as wide as your foot. Proper Shoe Choices The following types of shoes are best for people with diabetes Closed toes and heels Leather uppers without a seam inside At least 1/2 inch extra space at the end of your longest toe Inside of shoe should be soft with no rough areas Outer sole should be made of stiff material Shoes should be at least as wide as your feet Tips for Foot Care in Diabetes Don't wait to treat a minor foot problem if you have diabetes. Follow your health care provider's guidelines and first aid guidelines. Report foot injuries and infections to your health care provider immediately. Check water temperature with your elbow, not your foot. Do not use a heating pad on your feet. Do not cross your legs. Do not self-treat your corns, calluses, or other foot problems. Go to your health care provider or finish saw operator to treat these conditions. documented in this encounterMercy Health [facility] Hospital06-01-2023 Miscellaneous Notes* Telephone Encounter - Sarah Rivers LPN - 08/13/2022 8:44 AM EDT Kasandra--06/22/22 Nov--09/22/22 Last refill--08/18/21 180 with 3 refills Last labs--06/22/22 * Telephone Encounter - Bailee Fenton - 08/13/2022 8:38 AM EDT Patient has been identified by name and date of : Yes Requested Prescriptions Pending Prescriptions Disp Refills carvedilol (COREG) 25 mg tablet 180 tablet 3 Sig: Take 1 tablet by mouth twice daily. RX INSTRUCTIONS: Patient aware RX will be sent to pharmacy. No need to notify patient. Bailee Fenton documented in this encounterMercy Health [facility] Hospital05-01-2023 Miscellaneous Notes* Telephone Encounter - Brisa Campos MA - 07/13/2022 10:46 AM EDT KASANDRA 06/22/22 NOV 09/22/22 Brisa Campos MA * Telephone Encounter - Clementina Kurtz - 07/13/2022 8:41 AM EDT Patient has been identified by name and date of : Yes Requested Prescriptions Pending Prescriptions Disp Refills clopidogrel (PLAVIX) 75 mg tablet 90 tablet 3 Sig: Take 1 tablet by mouth once daily. RX INSTRUCTIONS: Patient aware RX will be sent to pharmacy. No need to notify patient. Clementina Villalobos Pss documented in this [facility]04-11-2023 Miscellaneous Notes* Telephone Encounter - Brisa Campos MA - 06/23/2022 2:41 PM EDT Pt notified and verbalized understanding. Scheudled for 09/22/22 at 1320 with Sarah. Ms. stern * Telephone Encounter - Brisa Campos MA - 06/23/2022 2:35 PM EDT ----- Message from Frank Fuentes MD sent at 06/23/2022 10:01 AM EDT ----- Worsening diabetes control with A1c up from 7.1 to 7.6. Would recommend she continue to work on lowcarb diet and would have her follow up in 3 months instead of 6 months for recheck. Monitor fastingsugars daily with goal <130. Urine albumin level up from last check, likely due to worsening DM control. No change to regimen. Cholesterol looks good. documented in this encounterMercy Health [facility] Hospital04-10-2023 History of Present illness Narrative* Frank Fuentes MD - 06/22/2022 11:12 AM EDT Chief Complaint Patient presents with: Follow Up: 6 month follow up HPI Neelam Ryan is a 87 year old female who presents here today for 6 month follow up. Patient has been in good health without hospitalizations or ER visits. No falls since last OV. Uses cane for ambulation when out of the home. DIABETES MELLITUS: Ms. Ryan was last seen 6 months ago. Since our last visit she denies excessive thirst or increased frequency of urination, numbness, tingling or pain in extremities, new or unusual visual symptoms, and low sugar/hypoglycemic reactions. Follows a diabetic diet most of the time. She is compliant with medication(s) and is tolerating med(s) without any side effects. She reportschecking her glucose on a once a day schedule with sugars in the fasting <150 range. Patient's last HgA1C was Hemoglobin A1C (%) Date Value 12/19/2021 7.1 06/17/2021 7.5 12/12/2020 7.8 06/11/2020 8.1 ) Last Ophthalmology exam was within the past 12 months Last Podiatry exam was 05/[address] Mcgee BP well controlled on current regimen. CKD: stage IV managed by Dr. Montgomery. No changes to regimen at last OV in May. Has follow up in December. Depression: controlled on Celexa without side effects. Denies SI/HI. Patient notes that her own dog bite on her right ring finger last night while trying to give her a pill. Dog is vaccinated. Shallow injury with minimal bleeding. Not treating with anything OTC. Denies erythema, drainage, warmth to touch. Past medical history, appointments, medications, allergies reviewed. Previous Medical History PAST MEDICAL HISTORY Diagnosis Date Basal cell carcinoma Cholecystitis, unspecified Chronic kidney disease (CKD), stage IV (severe) (HCC) Dr. Montgomery Coronary atherosclerosis of unspecified type of vessel, tulalip or graft Dr. Davenport Depression Hammertoes of both feet Multinodular goiter 05/21/2016 Osteoarthritis Other and unspecified anemias Pure hypercholesterolemia Sciatica Swelling of lower extremity Type II or unspecified type diabetes mellitus without mention of complication, not stated as uncontrolled Podiatry-Dr. Mcgee Unspecified essential hypertension Unspecified hypothyroidism Previous Surgical History PAST SURGICAL HISTORY Procedure Laterality Date COLONOSCOPY FLX DX W/COLLJ SPEC WHEN PFRMD 01/30/2005 Colonoscopy COLONOSCOPY FLX DX W/COLLJ SPEC WHEN PFRMD 08/05/2015 Colonoscopy ESOPHAGOGASTRODUODENOSCOPY TRANSORAL DIAGNOSTIC 01/30/2005 EGD HEART CATHETERIZATION 09/2018 angiopasty of circumflex, 75% stenosis. LAD 80%. LAPAROSCOPY SURG CHOLECYSTECTOMY 12/02/2005 Cholecystectomy, lap PAST SURGICAL HISTORY OF hernia PAST SURGICAL HISTORY OF carpal tunnel both hands PAST SURGICAL HISTORY OF fingers different times PAST SURGICAL HISTORY OF trigger finger PAST SURGICAL HISTORY OF 06/21/2006 heart cath with stent placement [facility] PAST SURGICAL HISTORY OF 04/24/2008 vaginal hysterectomy, bladder suspension, rectocele PAST SURGICAL HISTORY OF 11/20/11 cardiac cath; percutaneous transluminal coronary angioplasty with stent @ [facility] PAST SURGICAL HISTORY OF left wrist surgery TOTAL THYROID LOBECTOMY UNI W/WO ISTHMUSECTOMY Right 05/21/2016 TRANSCATH STENT INIT VESSEL,PERCUT 08/18 Transcath stent init vessel percut LAD [facility] Family History FAMILY HISTORY Problem Relation Age of Onset Diabetes Mother CAD, ANGIOPLASTY Diabetes Father DC other (DC) Brother other (OHS) Sister other (DC) Brother Heart Sister diabetic Heart Sister Heart Sister diabetic Heart Sister diabetic Patient Allergies ALLERGIES Allergen Reactions Accupril [Quinapril* Cough Sulfa (Sulfonamide * Hives Atorvastatin Myalgia Benzonatate Hives Gabapentin Other: See Comments fatigue Simvastatin Other: See Comments Current Medications Current Outpatient Medications on File Prior to Visit Medication Sig mecobalamin, vitamin B12, (B12 ACTIVE) 1,000 mcg chew Take by mouth. citalopram (CELEXA) 20 mg tablet Take 1 tablet by mouth once daily. SITagliptin phosphate (JANUVIA) 50 mg tablet Take 1 tablet by mouth once daily. amLODIPine (NORVASC) 5 mg tablet Take 1 tablet by mouth once daily. glipiZIDE (GLUCOTROL) 5 mg tablet Take 1 1/2 tablets PO in the morning and 1 tablet PO at night. pantoprazole DR (PROTONIX) 40 mg tablet Take 1 tablet by mouth daily before breakfast. Take on empty stomach, 1/2 hr before meal. furosemide (LASIX) 20 mg tablet Take 1 tablet by mouth once daily. blood sugar diagnostic (BLOOD GLUCOSE TEST) test strip Prodigy Glucometer Test blood sugar(s) 1 time daily. Dx: Type 2 DM - Controlled E11.9 Insulin: No folic acid 1 mg tablet Take 2 tablets by mouth once daily. carvedilol (COREG) 25 mg tablet Take 1 tablet by mouth twice daily. pravastatin (PRAVACHOL) 80 mg tablet Take 1 tablet by mouth daily at bedtime. levothyroxine (LEVOXYL) 75 mcg tablet Take 1 tablet by mouth once daily. clopidogrel (PLAVIX) 75 mg tablet Take 1 tablet by mouth once daily. nitroglycerin sublingual (NITROQUICK) 0.4 mg SL tablet Dissolve 1 tablet under the tongue as needed. DISSOLVE ONE(1) TABLET UNDER THE TOUNGUE NEEDED FOR CHEST PAIN,EVERY 5 MIN X3 Lancets lancets Test blood sugar(s) 1 times daily. Dx: Type 2 DM - Controlled E11.9 Insulin: No Cholecalciferol, Vitamin D3, 1,000 unit cap Take 1 capsule by mouth once daily. Cranberry 500 mg cap Take 1 tablet by mouth once daily. aspirin(ECOTRIN LOW STRENGTH 81 MG TAB) Take one(1) tablet daily. XALATAN 0.005 % EYE DROPS one drop each eye at bedtme isosorbide mononitrate ER (IMDUR) 30 mg 24 hr tablet Take 1 tablet by mouth once daily. COMPOUNDED PRESCRIPTION Prodigy Glucometer test strips Test once daily. Dx: E11.9 Insulin: No COMPOUNDED PRESCRIPTION Lancets Test once daily. Dx: E11.9 Insulin: No No current facility-administered medications on file prior to visit. Social History Social History Tobacco Use Smoking status: Never Smokeless tobacco: Never Vaping Use Vaping Use: Never used Substance Use Topics Alcohol use: No Drug use: No Review of Symptoms REVIEW OF SYSTEMS GENERAL: No weight loss, malaise or fevers RESPIRATORY: Negative for cough, hemoptysis, wheezing, COPD, dyspnea or shortness of breath CARDIOVASCULAR: Negative for chest pain, leg swelling, hypertension, CHF or palpitations GI: No nausea, vomiting, or diarrhea SKIN: See HPI EXAM: BP 118/62 Pulse 75 Resp 16 Wt 74.6 kg (164 lb 6.4 oz) SpO2 95% BMI 33.20 kg/m General Appearance: Well appearing, alert, in no acute distress, well-hydrated, well nourished.. Skin: Shallow dog bite to pad of right ring finger without cellulitis or drainage. Lungs: Lungs clear to auscultation. No wheezing, rhonchi, rales.. Heart: RRR without murmur, gallop, or rubs. No ectopy. Abdomen: Normal abdominal exam, Abdomen soft, non-tender. Bowel sounds normal. No masses, organomegaly. Extremities: No deformities, edema, skin discoloration, clubbing or cyanosis. Good capillary refill. . Health Maintenance List URINE ALBUMIN:CREATININE RATIO due on 12/12/2021 ADVANCE DIRECTIVE DISCUSSION Never done HBA1C due on 06/19/2022 DIABETIC FOOT EXAM due on 05/30/2022 LDL CHOLESTEROL due on 06/17/2022 SHINGRIX VACCINE(1 of 2) due on 12/19/2022 DILATED RETINAL EXAM due on 12/29/2022 DTAP,TDAP,TD(5 - Td or Tdap) due on 04/21/2028 BONE DENSITY Completed INFLUENZA Completed COVID-19 VACCINE Completed PNEUMOCOCCAL: 65+ Completed Data reviewed Component Latest Ref Rng & Units 12/19/2021 Protein, Total 6.3 - 8.0 g/dL 7.6 Albumin 3.9 - 4.9 g/dL 4.5 Calcium 8.5 - 10.2 mg/dL 10.4 (H) Bilirubin, Total 0.2 - 1.3 mg/dL 0.6 Alkaline Phosphatase 34 - 123 U/L 52 AST 13 - 35 U/L 19 ALT 7 - 38 U/L 9 Glucose 74 - 99 mg/dL 138 (H) BUN 7 - 21 mg/dL 50 (H) Creatinine 0.58 - 0.96 mg/dL 1.38 (H) Sodium 136 - 144 mmol/L 135 (L) Potassium 3.7 - 5.1 mmol/L 4.6 Chloride 97 - 105 mmol/L 99 CO2 22 - 30 mmol/L 21 (L) Anion Gap 9 - 18 mmol/L 15 eGFR >=60 mL/min/1.73m 38 (L) Hemoglobin A1C 4.3 - 5.6 % 7.1 (H) Estimated Average Glucose mg/dL 157 TSH 0.270 - 4.200 mIU/L 1.020 ASSESSMENT/PLAN: 1. Type 2 diabetes mellitus without complication, without long-term current use of insulin (HCC) - ICD9: 250.00, ICD10: E11.9 (primary diagnosis) - Controlled - Continue current medications - Blood glucose monitoring on a once daily schedule - Counseled on healthy diet and regular exercise - Discussed diabetic education issues of diabetes complications and monitoring required, hypoglycemic/hyperglycemic symptoms, medication-specific side effects and monitoring, and diabetic sick day rules - Follow up in 6 months, sooner should any other issues arise. - HGB A1C - LIPID PANEL, NONFASTING - ALBUMIN/CREAT RATIO RND UR 2. Hypertensive kidney disease with stage 4 chronic kidney disease (HCC) - ICD9: 403.90, 585.4, ICD10: I12.9, N18.[address] Montgomery. Continue recommendations per their office. 3. Acquired hypothyroidism - ICD9: 244.9, ICD10: E03.9 - Instructed patient on importance of taking on an empty stomach either first thing in the morning or at bedtime. - continue current dose of Synthroid 0.075 mg 4. 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 Keep f/u with [facility] cardiology as scheduled. 5. Mixed hyperlipidemia - ICD9: 272.2, ICD10: E78.2 - to be determined upon return of lab results - Continue current medication. - Encouraged following a low fat, low cholesterol diet. - Discussed the benefits of regular aerobic exercise and weight loss. 6. Falling episodes - ICD9: 781.99, E888.9, ICD10: R29.6 None since last OV. Continue use of cane at home. Red flags for re-assessment reviewed with patientin detail. 7. Dog bite, initial encounter - ICD9: 879.8, E906.0, ICD10: W54.0XXA Start augmentin x 10 days. Update tetanus shot. Discussed wound care. Red flags for re-assessment reviewed with patient in detail. - AMOXICILLIN 875 MG-POTASSIUM CLAVULANATE 125 MG TABLET - TDAP VACCINE, AGE 7+ YR (ADACEL, BOOSTRIX) 8. Recurrent major depressive disorder, in full remission (HCC) - ICD9: 296.36, ICD10: F33.42 Controlled on SSRI. Frank Fuentes MD documented in [facility] encounterMer[facility]04-[facility]23 Miscellaneous Notes* Telephone Encounter - Caprice Ponce - 06/15/2022 9:53 AM EDT Patient has been identified by name and date of : Yes Requested Prescriptions Pending Prescriptions Disp Refills citalopram (CELEXA) 20 mg tablet 90 tablet 1 Sig: Take 1 tablet by mouth once daily. KASANDRA-03/19/22 Labs-12/19/21 NOV-06/22/22 med filled 12/24/21 RX INSTRUCTIONS: Patient aware RX will be sent to pharmacy. No need to notify patient. Caprice Ponce documented in this encounterMercy [facility]03-30-2023 Miscellaneous Notes* Telephone Encounter - Va Goodman RN - 06/11/2022 9:51 AM EDT Michaela with [employer] calling to request most recent OV note with PCP in regard to processing order for patient's diabetic shoes and inserts. Information faxed as requested to [phone]. Va Goodman RN documented in this encounterMer[facility]03-20-2023 Miscellaneous Notes* Telephone Encounter - Edel Paredes LPN - 06/01/2022 1:08 PM EDT KASANDRA 03/19/2022 NOV 06/22/2022 * Telephone Encounter - Bailee Fenton - 06/01/2022 10:53 AM EDT Patient has been identified by name and date of : Yes Requested Prescriptions Pending Prescriptions Disp Refills SITagliptin phosphate (JANUVIA) 50 mg tablet 30 tablet 5 Sig: Take 1 tablet by mouth once daily. RX INSTRUCTIONS: Patient aware RX will be sent to pharmacy. No need to notify patient. Bailee Fenton documented in this encounterMercy [facility]03-01-2023 History of Present illness Narrative* Karolina Mcgee - 05/13/2022 10:43 AM EST Last saw Dr. Fuentes: 03/19/22 Subjective: Patient presents to clinic c/o painful toenails. They state that the nails are especially painful with shoe gear and pressure. Patient states that nails 1-5 b/l are painful. Patient admits to being diabetic. No other pedal complaints at this time. Patient states no change in medications or medical history since last visit. Objective: Patient presents to clinic ambulating in diabetic shoes Vasc: DP and PT pulses are palpable bilateral. CFT is less than 5 seconds bilateral. Skin temperature is warm to cool proximal to distal bilateral. There is no edema or varicosities noted. Neuro: Protective sensation is intact to the foot and toes when tested with the 5.07 SWM bilateral.Vibratory sensation is absent at the hallux IPJ bilateral. The hallux is downgoing bilateral. Derm: Nails 1-5 b/l are painful, discolored-yellow, thick, crumbly, dystrophic and with subungal debris. Skin is of normal turgor, texture and hair growth is present bilateral. There are callus to right hallux. No ulcerations, scars, verruca or other lesions noted. Ortho: Muscle strength is 5/5 for all pedal groups tested. Ankle joint DF is full with the knee extended with no pain or crepitus noted. 1st MPJ ROM is decreased bilateral. Bunion deformity b/l. Cross over 2nd toe deformity, right foot. Assessment: (B35.1) Onychomycosis (primary encounter diagnosis) (M79.674) Pain in toe of right foot (M79.675) Pain in toe of left foot (E11.9) Type 2 diabetes mellitus without complication, without long-term current use of insulin (HCC) (M20.12) Acquired hallux valgus of left foot (M20.11) Acquired hallux valgus of right foot (L84) Callus Plan: Patient was seen and evaluated. Nails 1-5 bilateral were debrided in length and thickness. Callus reduced to right hallux with dremmel. Discussed possible rubbing of 2nd toe due to hammertoe. Continue with diabetic shoes. Diabetic shoeordered. Patient has no pain in 2nd toe. If pain were present, could consider amputation of 2nd toe. Patient was instructed on the continued importance of diabetic foot care along with proper diet andkeeping their blood sugar under control to prevent complications. Patient is to RTC in 3-4 months. Karolina Mcgee DPM * Mariosl Hu RN - 05/13/2022 10:25 AM EST Patient presents with: Left Foot - Established Patient, Follow Up, Diabetic Foot Check Right Foot - Established Patient, Follow Up, Diabetic Foot Check Patient presents for Diabetic foot check and nail care. documented in this encounterMercy [facility]03-01-2023 Instructions* Patient Instructions* Karolina Mcgee - 05/13/2022 10:43 AM EST Diabetes Foot Care Instructions When you have diabetes, proper foot care is very important. Poor foot care may lead to amputation of a foot or leg. As a person with diabetes, you are more vulnerable to foot problems, because diabetes can damage your nerves and reduce blood flow to your feet. Here are some diabetes foot care tips to follow: Wash and Dry Your Feet Daily Use mild soaps Use warm water Pat your skin dry; do not rub. Thoroughly dry your feet. After washing, use lotion on your feet to prevent cracking. Do not put lotion between your toes. Examine Your Feet Each Day Check the tops and bottoms of your feet. Have someone else look at your feet if you cannot see them. Check for dry, cracked skin. Look for blisters, cuts, scratches, or other sores. Check for redness, increased warmth, or tenderness when touching any area of your feet. Check for ingrown toenails, corns, and calluses. If you get a blister or sore from your shoes, do not pop it. Apply a bandage and wear a differentpair of shoes. Take Care of Your Toenails Cut toenails after bathing, when they are soft. Cut toenails straight across and smooth with a nail file. Avoid cutting into the corners of toes. Do not cut cuticles. If you have neuropathy (or decreased sensation in your feet) a finish saw operator should always cut your toenails. Be Careful When Exercising Walk and exercise in comfortable shoes. Do not exercise when you have open sores on your feet. Protect Your Feet With Shoes and Socks Never go barefoot. Always protect your feet by wearing shoes or hard-soled slippers or footwear. Avoid shoes with high heels and pointed toes. Avoid shoes that expose your toes or heels (such as open-toed shoes or sandals). These types of shoes increase your risk for injury and potential infections. Try on new footwear with the type of socks you usually wear. Do not wear new shoes for more than an hour at a time. Change your socks daily. Look and feel inside your shoes before putting them on to make sure there are no foreign objects orrough areas. Avoid tight socks. Wear natural-fiber socks (cotton, wool, or a cotton-wool blend). Wear special shoes if your health care provider recommends them. Wear shoes/boots that will protect your feet from various weather conditions (cold, moisture, etc.). Make sure your shoes fit properly. If you have neuropathy (nerve damage), you may not notice that your shoes are too tight. Perform the footwear test described below. Footwear Test Use this simple test to see if your shoes fit correctly: Stand on a piece of paper. (Make sure you are standing and not sitting, because your foot changes shape when you stand.) Trace the outline of your foot. Trace the outline of your shoe. Compare the tracings: Is the shoe too narrow? Is your foot crammed into the shoe? The shoe should be at least 1/2 inch longer than your longest toe and as wide as your foot. Proper Shoe Choices The following types of shoes are best for people with diabetes Closed toes and heels Leather uppers without a seam inside At least 1/2 inch extra space at the end of your longest toe Inside of shoe should be soft with no rough areas Outer sole should be made of stiff material Shoes should be at least as wide as your feet Tips for Foot Care in Diabetes Don't wait to treat a minor foot problem if you have diabetes. Follow your health care provider's guidelines and first aid guidelines. Report foot injuries and infections to your health care provider immediately. Check water temperature with your elbow, not your foot. Do not use a heating pad on your feet. Do not cross your legs. Do not self-treat your corns, calluses, or other foot problems. Go to your health care provider or finish saw operator to treat these conditions. documented in this encounterMer[facility]01-05-2023 History of Present illness Narrative* Frank Fuentes MD - 03/19/2022 11:42 AM EST Chief Complaint Patient presents with: UTI: C/O urgency, frequency, burning and pain with urination x 2 weeks. HPI Neelam Ryan is a 86 year old female who presents here today for Above Complaints.. Patient complaining of dysuria, frequency, urgency x 2 weeks. Treating by drinking more water. Not taking anything OTC. Admits to fatigue, lower abdominal pain. Denies hematuria, fever/chills, nausea, vomiting, flank pain. Past medical history, appointments, medications, allergies reviewed. Previous Medical History PAST MEDICAL HISTORY Diagnosis Date Basal cell carcinoma Cholecystitis, unspecified Chronic kidney disease (CKD), stage IV (severe) (HCC) Dr. Montgomery Coronary atherosclerosis of unspecified type of vessel, tulalip or graft Dr. Davenport Depression Hammertoes of both feet Multinodular goiter 05/21/2016 Osteoarthritis Other and unspecified anemias Pure hypercholesterolemia Sciatica Swelling of lower extremity Type II or unspecified type diabetes mellitus without mention of complication, not stated as uncontrolled Podiatry-Dr. Mcgee Unspecified essential hypertension Unspecified hypothyroidism Previous Surgical History PAST SURGICAL HISTORY Procedure Laterality Date COLONOSCOPY FLX DX W/COLLJ SPEC WHEN PFRMD 01/30/2005 Colonoscopy COLONOSCOPY FLX DX W/COLLJ SPEC WHEN PFRMD 08/05/2015 Colonoscopy ESOPHAGOGASTRODUODENOSCOPY TRANSORAL DIAGNOSTIC 01/30/2005 EGD HEART CATHETERIZATION 09/2018 angiopasty of circumflex, 75% stenosis. LAD 80%. LAPAROSCOPY SURG CHOLECYSTECTOMY 12/02/2005 Cholecystectomy, lap PAST SURGICAL HISTORY OF hernia PAST SURGICAL HISTORY OF carpal tunnel both hands PAST SURGICAL HISTORY OF fingers different times PAST SURGICAL HISTORY OF trigger finger PAST SURGICAL HISTORY OF 06/21/2006 heart cath with stent placement [facility] PAST SURGICAL HISTORY OF 04/24/2008 vaginal hysterectomy, bladder suspension, rectocele PAST SURGICAL HISTORY OF 11/20/11 cardiac cath; percutaneous transluminal coronary angioplasty with stent @ [facility] PAST SURGICAL HISTORY OF left wrist surgery TOTAL THYROID LOBECTOMY UNI W/WO ISTHMUSECTOMY Right 05/21/2016 TRANSCATH STENT INIT VESSEL,PERCUT 08/18 Transcath stent init vessel percut LAD [place] [facility] Family History FAMILY HISTORY Problem Relation Age of Onset Diabetes Mother CAD, ANGIOPLASTY Diabetes Father DC other (DC) Brother other (OHS) Sister other (DC) Brother Heart Sister diabetic Heart Sister Heart Sister diabetic Heart Sister diabetic Patient Allergies ALLERGIES Allergen Reactions Accupril [Quinapril* Cough Sulfa (Sulfonamide * Hives Gabapentin Other: See Comments fatigue Current Medications Current Outpatient Medications on File Prior to Visit Medication Sig pantoprazole DR (PROTONIX) 40 mg tablet Take 1 tablet by mouth daily before breakfast. Take on empty stomach, 1/2 hr before meal. furosemide (LASIX) 20 mg tablet Take 1 tablet by mouth once daily. blood sugar diagnostic (BLOOD GLUCOSE TEST) test strip Blue Boxigy Glucometer Test blood sugar(s) 1 time daily. Dx: Type 2 DM - Controlled E11.9 Insulin: No citalopram (CELEXA) 20 mg tablet Take 1 tablet by mouth once daily. folic acid 1 mg tablet Take 2 tablets by mouth once daily. amLODIPine (NORVASC) 5 mg tablet Take 1 tablet by mouth once daily. isosorbide mononitrate ER (IMDUR) 30 mg 24 hr tablet Take 1 tablet by mouth once daily. SITagliptin (JANUVIA) 50 mg tablet Take 1 tablet by mouth once daily. glipiZIDE (GLUCOTROL) 5 mg tablet Take 1 1/2 tablets PO in the morning and 1 tablet PO at night. carvedilol (COREG) 25 mg tablet Take 1 tablet by mouth twice daily. pravastatin (PRAVACHOL) 80 mg tablet Take 1 tablet by mouth daily at bedtime. levothyroxine (LEVOXYL) 75 mcg tablet Take 1 tablet by mouth once daily. clopidogrel (PLAVIX) 75 mg tablet Take 1 tablet by mouth once daily. nitroglycerin sublingual (NITROQUICK) 0.4 mg SL tablet Dissolve 1 tablet under the tongue as needed. DISSOLVE ONE(1) TABLET UNDER THE TOUNGUE NEEDED FOR CHEST PAIN,EVERY 5 MIN X3 Lancets lancets Test blood sugar(s) 1 times daily. Dx: Type 2 DM - Controlled E11.9 Insulin: No COMPOUNDED PRESCRIPTION Prodigy Glucometer test strips Test once daily. Dx: E11.9 Insulin: No Cholecalciferol, Vitamin D3, 1,000 unit cap Take 1 capsule by mouth once daily. COMPOUNDED PRESCRIPTION Lancets Test once daily. Dx: E11.9 Insulin: No Cranberry 500 mg cap Take 1 tablet by mouth once daily. aspirin(ECOTRIN LOW STRENGTH 81 MG TAB) Take one(1) tablet daily. XALATAN 0.005 % EYE DROPS one drop each eye at bedtme No current facility-administered medications on file prior to visit. Social History Social History Tobacco Use Smoking status: Never Smokeless tobacco: Never Vaping Use Vaping Use: Never used Substance Use Topics Alcohol use: No Drug use: No Review of Symptoms REVIEW OF SYSTEMS See HPI EXAM: BP 122/60 Pulse 60 Temp 36.3 C (97.4 F) Resp 18 Wt 73.6 kg (162 lb 3.2 oz) SpO2 94% BMI32.76 kg/m General Appearance: Well appearing, alert, in no acute distress, well-hydrated, well nourished.. Abdomen: Abdomen soft, non-tender. Bowel sounds normal. No masses, organomegaly, Negative CVA tenderness. Health Maintenance List URINE ALBUMIN:CREATININE RATIO due on 12/12/2021 ADVANCE DIRECTIVE DISCUSSION Never done SHINGRIX VACCINE(1 of 2) due on 12/19/2022 DIABETIC FOOT EXAM due on 05/30/2022 LDL CHOLESTEROL due on 06/17/2022 HBA1C due on 06/19/2022 DILATED RETINAL EXAM due on 12/29/2022 DTAP,TDAP,TD(5 - Td or Tdap) due on 04/21/2028 BONE DENSITY Completed INFLUENZA Completed COVID-19 VACCINE Completed PNEUMOCOCCAL: 65+ Completed Data reviewed Component Latest Ref Rng & Units 03/19/2022 GLUCOSE UA (POCT) Negative mg/dL Negative BILIRUBIN UA (POCT) Negative Negative KETONE UA (POCT) Negative mg/dL Negative SPECIFIC GRAVITY UA (POCT) 1.005 - 1.030 1.015 HEMOGLOBIN/BLOOD UA (POCT) Negative Trace-intact (A) PH UA (POCT) 4.5 - 8.0 8.5 (A) PROTEIN UA (POCT) Negative mg/dL 100 (A) UROBILINOGEN UA (POCT) Normal E.U./dL 0.2 NITRITE UA (POCT) Negative Negative LEUKOCYTES UA (POCT) Negative Moderate (A) COLOR UA (POCT) Light yellow CLARITY UA (POCT) Slightly Cloudy ASSESSMENT/PLAN: 1. Dysuria - ICD9: 788.1, ICD10: R30.0 acute - UA positive for cora esterase and hematuria - Send urine for culture - Begin treatment with Macrobid 100 mg BID for 5 days - Patient education for prevention given - UA DIP, URINE (POC) - URINE CULTURE Frank Fuentes MD documented in this encounterMercy [facility]12-12-2022 Miscellaneous Notes* Telephone Encounter - Trina Moore LPN - 02/23/2022 3:06 PM EST Phoned patient and she requests order be mailed to her. Order put in mail. * Telephone Encounter - Frank Fuentes MD - 02/23/2022 2:37 PM EST Order printed. May mail or come spanish moss picker per her preference. * Telephone Encounter - BOBBY Burgos - 02/23/2022 12:05 PM EST Patient is requesting a renewal on her handicap placard. Please review. BOBBY Burgos February 23, 2022 12:06 PM documented in this encounterMercy Health [facility] Hospital12-12-2022 Miscellaneous Notes* Telephone Encounter - Frank Fuentes MD - 02/23/2022 2:47 PM EST Patient requesting handicap placard. See other TE. documented in this encounterMercy Health [facility] Hospital10-12-2022 Miscellaneous Notes* Telephone Encounter - Jackie Dooley [facility] - 12/24/2021 11:07 AM EDT Patient has been identified by name and date of : Yes Last office visit in this department: 12/19/2021 RX INSTRUCTIONS: Patient aware RX will be sent to pharmacy. No need to notify patient. Patient phones requesting refills as follows: Requested Prescriptions Pending Prescriptions Disp Refills citalopram (CELEXA) 20 mg tablet 90 tablet 1 Sig: Take 1 tablet by mouth once daily. Please review and advise. Jackie Kurtz documented in this encounterMercy Health [facility] Hospital10-10-2022 Miscellaneous Notes* Telephone Encounter - Joceline Varela Ma - 12/22/2021 2:02 PM EDT Letter mailed to pt home of results. Joceline Varela MA * Telephone Encounter - Joceline Varela Ma - 12/22/2021 1:58 PM EDT ----- Message from Frank Fuentes MD sent at 12/20/2021 8:04 AM EDT ----- Thyroid levels normal. Diabetes shows improved control with A1c of 7.1. Kidney function improved and is up to CKD stage III range. Labs otherwise unremarkable. No changes to regimen. documented in this encounterMercy Health [facility] Hospital10-07-2022 History of Present illness Narrative* Frank Fuentes MD - 12/19/2021 10:46 AM EDT Chief Complaint Patient presents with: Follow Up: 6 month HPI Neelam Ryan is a 86 year old female who presents here today for 6 month follow up. Has been in good health without hospitalizations or ER visits. DIABETES MELLITUS: Ms. Ryan was last seen 6 months ago. Since our last visit she denies excessive thirst or increased frequency of urination, numbness, tingling or pain in extremities, new or unusual visual symptoms, and low sugar/hypoglycemic reactions. Follows a diabetic diet most of the time. She is compliant with medication(s) and is tolerating med(s) without any side effects. She reportschecking her glucose on a once a day schedule with sugars in the fasting <150 range typically. Patient's last HgA1C was Hemoglobin A1C (%) Date Value 06/17/2021 7.5 12/12/2020 7.8 06/11/2020 8.1 ) Last Ophthalmology exam was within the past 12 months. Has yearly optho appointment scheduled with [facility]. Last Podiatry exam was within the past 3 months Complaining of mild tremor when she is writing or going to prick her finger in the morning. Not wanting medication today. Admits to fall last month while walking down her hallway. Thinks she tripped or stubbed her toe which caused her to fall. Landed on her right knee and hit her head on the carpet. Did not have LOC. Was not evaluated at the ED. Denies joint pain or headache today. Has cane and walker at home, but does not use them in the home. Cane when she goes out. Feels steady on her feet. Depression controlled on Celexa without side effects. Following up with cardiology and nephrology for CAD and CKD stage IV. Last office notes reviewed. Patient has scheduled follow up appointments. Past medical history, appointments, medications, allergies reviewed. Previous Medical History PAST MEDICAL HISTORY Diagnosis Date Basal cell carcinoma Cholecystitis, unspecified Chronic kidney disease (CKD), stage IV (severe) ([facility]) Dr. Montgomery Coronary atherosclerosis of unspecified type of vessel, tulalip or graft Dr. Davenport Depression Hammertoes of both feet Multinodular goiter 05/21/2016 Osteoarthritis Other and unspecified anemias Pure hypercholesterolemia Sciatica Swelling of lower extremity Type II or unspecified type diabetes mellitus without mention of complication, not stated as uncontrolled Podiatry-Dr. Mcgee Unspecified essential hypertension Unspecified hypothyroidism Previous Surgical History PAST SURGICAL HISTORY Procedure Laterality Date COLONOSCOPY FLX DX W/COLLJ SPEC WHEN PFRMD 01/30/2005 Colonoscopy COLONOSCOPY FLX DX W/COLLJ SPEC WHEN PFRMD 08/05/2015 Colonoscopy ESOPHAGOGASTRODUODENOSCOPY TRANSORAL DIAGNOSTIC 01/30/2005 EGD HEART CATHETERIZATION 09/2018 angiopasty of circumflex, 75% stenosis. LAD 80%. LAPAROSCOPY SURG CHOLECYSTECTOMY 12/02/2005 Cholecystectomy, lap PAST SURGICAL HISTORY OF hernia PAST SURGICAL HISTORY OF carpal tunnel both hands PAST SURGICAL HISTORY OF fingers different times PAST SURGICAL HISTORY OF trigger finger PAST SURGICAL HISTORY OF 06/21/2006 heart cath with stent placement [facility] PAST SURGICAL HISTORY OF 04/24/2008 vaginal hysterectomy, bladder suspension, rectocele PAST SURGICAL HISTORY OF 11/20/11 cardiac cath; percutaneous transluminal coronary angioplasty with stent @ [facility] PAST SURGICAL HISTORY OF left wrist surgery TOTAL THYROID LOBECTOMY UNI W/WO ISTHMUSECTOMY Right 05/21/2016 TRANSCATH STENT INIT VESSEL,PERCUT 08/18 Transcath stent init vessel percut LAD [facility] Family History FAMILY HISTORY Problem Relation Age of Onset Diabetes Mother CAD, ANGIOPLASTY Diabetes Father DC other (DC) Brother other (OHS) Sister other (DC) Brother Heart Sister diabetic Heart Sister Heart Sister diabetic Heart Sister diabetic Patient Allergies ALLERGIES Allergen Reactions Accupril [Quinapril* Cough Sulfa (Sulfonamide * Hives Gabapentin Other: See Comments fatigue Current Medications Current Outpatient Medications on File Prior to Visit Medication Sig folic acid 1 mg tablet Take 2 tablets by mouth once daily. amLODIPine (NORVASC) 5 mg tablet Take 1 tablet by mouth once daily. isosorbide mononitrate ER (IMDUR) 30 mg 24 hr tablet Take 1 tablet by mouth once daily. SITagliptin (JANUVIA) 50 mg tablet Take 1 tablet by mouth once daily. glipiZIDE (GLUCOTROL) 5 mg tablet Take 1 1/2 tablets PO in the morning and 1 tablet PO at night. pantoprazole DR (PROTONIX) 40 mg tablet Take 1 tablet by mouth daily before breakfast. Take on empty stomach, 1/2 hr before meal. furosemide (LASIX) 20 mg tablet Take 1 tablet by mouth once daily. carvedilol (COREG) 25 mg tablet Take 1 tablet by mouth twice daily. pravastatin (PRAVACHOL) 80 mg tablet Take 1 tablet by mouth daily at bedtime. levothyroxine (LEVOXYL) 75 mcg tablet Take 1 tablet by mouth once daily. clopidogrel (PLAVIX) 75 mg tablet Take 1 tablet by mouth once daily. citalopram (CELEXA) 20 mg tablet Take 1 tablet by mouth once daily. nitroglycerin sublingual (NITROQUICK) 0.4 mg SL tablet Dissolve 1 tablet under the tongue as needed. DISSOLVE ONE(1) TABLET UNDER THE TOUNGUE NEEDED FOR CHEST PAIN,EVERY 5 MIN X3 blood sugar diagnostic (BLOOD GLUCOSE TEST) test strip Prodigy Glucometer Test blood sugar(s) 1 time daily. Dx: Type 2 DM - Controlled E11.9 Insulin: No Lancets lancets Test blood sugar(s) 1 times daily. Dx: Type 2 DM - Controlled E11.9 Insulin: No COMPOUNDED PRESCRIPTION Prodigy Glucometer test strips Test once daily. Dx: E11.9 Insulin: No Cholecalciferol, Vitamin D3, 1,000 unit cap Take 1 capsule by mouth once daily. COMPOUNDED PRESCRIPTION Lancets Test once daily. Dx: E11.9 Insulin: No Cranberry 500 mg cap Take 1 tablet by mouth once daily. aspirin(ECOTRIN LOW STRENGTH 81 MG TAB) Take one(1) tablet daily. XALATAN 0.005 % EYE DROPS one drop each eye at [facility] No current facility-administered medications on file prior to visit. Social History Social History Tobacco Use Smoking status: Never Smokeless tobacco: Never Vaping Use Vaping Use: Never used Substance Use Topics Alcohol use: No Drug use: No Review of Symptoms REVIEW OF SYSTEMS GENERAL: No weight loss, malaise or fevers RESPIRATORY: Negative for cough, hemoptysis, wheezing, COPD, dyspnea or shortness of breath CARDIOVASCULAR: Negative for chest pain, leg swelling, hypertension, CHF or palpitations GI: No nausea, vomiting, or diarrhea SKIN: Negative for lesions, rash, and itching EXAM: BP 130/64 Pulse 73 Resp 16 Wt 75.1 kg (165 lb 9.6 oz) SpO2 95% BMI 33.45 kg/m General Appearance: Well appearing, alert, in no acute distress, well-hydrated, well nourished.. Skin: actinic keratoses on scalp and right cheek. No bruising or hematoma from fall on her knee or scalp.. Head: Normocephalic, no masses, lesions, tenderness or abnormalities. Lungs: Lungs clear to auscultation. No wheezing, rhonchi, rales.. Heart: RRR without murmur, gallop, or rubs. No ectopy. Abdomen: Normal abdominal exam, Abdomen soft, non-tender. Bowel sounds normal. No masses, organomegaly. Extremities: No deformities, edema, skin discoloration, clubbing or cyanosis. Good capillary refill. . Musculoskeletal: No joint swelling, deformity, or tenderness. Health Maintenance List SHINGRIX VACCINE(1 of 2) Never done ADVANCE DIRECTIVE DISCUSSION Never done COVID-19 VACCINE(5 - Booster for Pfizer series) due on 08/22/2021 INFLUENZA(1) due on 11/13/2021 HBA1C due on 12/17/2021 DILATED RETINAL EXAM due on 12/27/2021 DIABETIC FOOT EXAM due on 05/30/2022 LDL CHOLESTEROL due on 06/17/2022 DTAP,TDAP,TD(5 - Td or Tdap) due on 04/21/2028 BONE DENSITY Completed PNEUMOCOCCAL: 65+ Completed Data reviewed Component Latest Ref Rng & Units 06/17/2021 Protein, Total 6.3 - 8.0 g/dL 7.5 Albumin 3.9 - 4.9 g/dL 4.4 Calcium 8.5 - 10.2 mg/dL 9.6 Bilirubin, Total 0.2 - 1.3 mg/dL 0.4 Alkaline Phosphatase 34 - 123 U/L 48 AST 13 - 35 U/L 15 ALT 7 - 38 U/L 8 Glucose 74 - 99 mg/dL 220 (H) BUN 7 - 21 mg/dL 50 (H) Creatinine 0.58 - 0.96 mg/dL 2.09 (H) Sodium 136 - 144 mmol/L 139 Potassium 3.7 - 5.1 mmol/L 4.3 Chloride 97 - 105 mmol/L 99 CO2 22 - 30 mmol/L 24 Anion Gap 9 - 18 mmol/L 16 eGFR >=60 mL/min/1.73m 23 (L) WBC 3.70 - 11.00 k/uL 9.70 RBC 3.90 - 5.20 m/uL 3.12 (L) Hemoglobin 11.5 - 15.5 g/dL 11.6 Hematocrit 36.0 - 46.0 % 34.3 (L) MCV 80.0 - 100.0 fL 109.9 (H) MCH 26.0 - 34.0 pg 37.2 (H) MCHC 30.5 - 36.0 g/dL 33.8 RDW-CV 11.5 - 15.0 % 14.6 Platelet Count 150 - 400 k/uL 332 MPV 9.0 - 12.7 fL 10.2 Absolute nRBC <0.01 k/uL 0.03 (H) Total Cholesterol, Nonfasting <200 mg/dL 134 Triglycerides, Nonfasting <150 mg/dL 113 HDL Cholesterol, Nonfasting >39 mg/dL 53 LDL Cholesterol, Nonfasting <100 mg/dL 58 Non HDL Cholesterol, Nonfasting <130 mg/dL 81 VLDL Cholesterol, Nonfasting <30 mg/dL 23 Total Chol/HDL Ratio, Nonfasting <5.10 mg/dL 2.53 LDL/HDL Ratio, Nonfasting <2.54 mg/dL 1.09 Hemoglobin A1C 4.3 - 5.6 % 7.5 (H) Estimated Average Glucose mg/dL 169 ASSESSMENT/PLAN: 1. Type 2 diabetes mellitus without complication, without long-term current use of insulin (HCC) - ICD9: 250.00, ICD10: E11.9 (primary diagnosis) Controlled. - Continue current medications - Blood glucose monitoring on a once a day schedule - Encouraged regular aerobic exercise and weight loss - Follow up in 6 months, sooner should any other issues arise. 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 - COMP METABOLIC PANEL - HGB A1C 2. Essential hypertension - ICD9: 401.9, ICD10: I10 - good control - Continue current medication(s) - Encouraged dietary sodium restriction/DASH diet - Recommended regular aerobic exercise. - Reviewed risks of HTN and principles of treatment - Goal of BP <140/90 3. Chronic kidney disease (CKD), stage IV (severe) (HCC) - ICD9: 585.4, ICD10: N18.4 Recommendations per nephrology. 4. Acquired hypothyroidism - ICD9: 244.9, ICD10: E03.9 - Instructed patient on importance of taking on an empty stomach either first thing in the morning or at bedtime. - check TSH today - continue current dose of Synthroid 0.075 mg - TSH BLD 5. 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- ICD9: 414.01, ICD10: I25.10 Asymptomatic on current regimen. Recommendations per cardiology. 6. Recurrent major depressive disorder, in full remission (HCC) - ICD9: 296.36, ICD10: F33.42 Controlled on Celexa. 7. Actinic keratosis - ICD9: 702.0, ICD10: L57.0 - CONSULT TO DERMATOLOGY 8. Unsteady gait - ICD9: 781.2, ICD10: R26.81 Discussed use of cane in and out of home. Refer to PT. Recommended she call about fall alert buttonto be worn when at home. Discussed risks of falls in persons living alone. - CONSULT TO PHYSICAL THERAPY 9. Fall in home, initial encounter - ICD9: E888.9, E849.0, ICD10: W19.XXXA, Y92.009 - CONSULT TO PHYSICAL THERAPY 10. Need for influenza vaccination - ICD9: V04.81, ICD10: Z23 - INFLUENZA SEASONAL QUADRIVALENT HIGH DOSE AGE 65+ 11. Need for COVID-19 vaccine - ICD9: V04.89, ICD10: Z23 - [facility]-19 BIVALENT BOOSTER VACCINE, AGE 12+ YR Frank Fuentes MD documented in this encounterMer[facility] History of Present illness Narrative* Karolina Mcgee - 12/15/2021 1:36 PM EDT Last saw Dr. Fuentes: 06/17/21 Subjective: Patient presents to clinic c/o painful toenails. They state that the nails are especially painful with shoe gear and pressure. Patient states that nails 1-5 b/l are painful. Patient admits to being diabetic. Does complain of pain to left 2nd metatarsal head. No other pedal complaints atthis time. Patient states no change in medications or medical history since last visit. Objective: Patient presents to clinic ambulating in diabetic shoes Vasc: DP and PT pulses are palpable bilateral. CFT is less than 5 seconds bilateral. Skin temperature is warm to cool proximal to distal bilateral. There is mild edema or varicosities noted. Neuro: Protective sensation is intact to the foot and toes when tested with the 5.07 SWM bilateral.Vibratory sensation is decreased at the hallux IPJ bilateral. The hallux is downgoing bilateral. Derm: Nails 1-5 b/l are painful, discolored-yellow, thick, crumbly, dystrophic and with subungal debris. Skin is of normal turgor, texture and hair growth is decreased bilateral. There are no hyperkeratosis, ulcerations, scars, verruca or other lesions noted. Ortho: Muscle strength is 5/5 for all pedal groups tested. Ankle joint DF is decreased with the knee extended with no pain or crepitus noted. 1st MPJ ROM is decreased bilateral. There is moderate bunion deformity of b/l feet. There is hammertoe deformity with crossover 2nd toe, right foot. There isrigid hammertoe of left 2nd toe. Assessment: (B35.1) Onychomycosis (primary encounter diagnosis) (M79.674) Pain in toe of right foot (M79.675) Pain in toe of left foot Hallux valgus hammertoe (E11.9) Type 2 diabetes mellitus without complication, without long-term current use of insulin ([facility]) Plan: Patient was seen and evaluated. Nails 1-5 bilateral were debrided in length and thickness. Small bleed to left hallux. Band aide applied. Discussed bunion of b/l foot L>R. Discussed hammertoe. Discussed conservative options by way of diabetic shoe vs surgical optoins not limited to amputation of 2nd toe vs reconstruction. Patient isnot really interested in surgery. Patient was instructed on the continued importance of diabetic foot care along with proper diet andkeeping their blood sugar under control to prevent complications. Patient is to RTC in 3-4 months. Karolina Mcgee DPM * Mabel Hamlin LPN - 12/15/2021 1:26 PM EDT AMB ROOMING INTAKE FLOWSHEET DATA Risk Screening Do you have concerns about personal safety or safety in the home?: No Patient presents with: Left Foot - Established Patient, Follow Up, Diabetic Foot Care Right Foot - Established Patient, Follow Up, Diabetic Foot Care Mabel Hamlin LPN documented in this encounterMer[facility]10-03-2022 Instructions* Patient Instructions* Karolina Mcgee - 12/15/2021 1:36 PM EDT Diabetes Foot Care Instructions When you have diabetes, proper foot care is very important. Poor foot care may lead to amputation of a foot or leg. As a person with diabetes, you are more vulnerable to foot problems, because diabetes can damage your nerves and reduce blood flow to your feet. Here are some diabetes foot care tips to follow: Wash and Dry Your Feet Daily Use mild soaps Use warm water Pat your skin dry; do not rub. Thoroughly dry your feet. After washing, use lotion on your feet to prevent cracking. Do not put lotion between your toes. Examine Your Feet Each Day Check the tops and bottoms of your feet. Have someone else look at your feet if you cannot see them. Check for dry, cracked skin. Look for blisters, cuts, scratches, or other sores. Check for redness, increased warmth, or tenderness when touching any area of your feet. Check for ingrown toenails, corns, and calluses. If you get a blister or sore from your shoes, do not pop it. Apply a bandage and wear a differentpair of shoes. Take Care of Your Toenails Cut toenails after bathing, when they are soft. Cut toenails straight across and smooth with a nail file. Avoid cutting into the corners of toes. Do not cut cuticles. If you have neuropathy (or decreased sensation in your feet) a finish saw operator should always cut your toenails. Be Careful When Exercising Walk and exercise in comfortable shoes. Do not exercise when you have open sores on your feet. Protect Your Feet With Shoes and Socks Never go barefoot. Always protect your feet by wearing shoes or hard-soled slippers or footwear. Avoid shoes with high heels and pointed toes. Avoid shoes that expose your toes or heels (such as open-toed shoes or sandals). These types of shoes increase your risk for injury and potential infections. Try on new footwear with the type of socks you usually wear. Do not wear new shoes for more than an hour at a time. Change your socks daily. Look and feel inside your shoes before putting them on to make sure there are no foreign objects orrough areas. Avoid tight socks. Wear natural-fiber socks (cotton, wool, or a cotton-wool blend). Wear special shoes if your health care provider recommends them. Wear shoes/boots that will protect your feet from various weather conditions (cold, moisture, etc.). Make sure your shoes fit properly. If you have neuropathy (nerve damage), you may not notice that your shoes are too tight. Perform the footwear test described below. Footwear Test Use this simple test to see if your shoes fit correctly: Stand on a piece of paper. (Make sure you are standing and not sitting, because your foot changes shape when you stand.) Trace the outline of your foot. Trace the outline of your shoe. Compare the tracings: Is the shoe too narrow? Is your foot crammed into the shoe? The shoe should be at least 1/2 inch longer than your longest toe and as wide as your foot. Proper Shoe Choices The following types of shoes are best for people with diabetes Closed toes and heels Leather uppers without a seam inside At least 1/2 inch extra space at the end of your longest toe Inside of shoe should be soft with no rough areas Outer sole should be made of stiff material Shoes should be at least as wide as your feet Tips for Foot Care in Diabetes Don't wait to treat a minor foot problem if you have diabetes. Follow your health care provider's guidelines and first aid guidelines. Report foot injuries and infections to your health care provider immediately. Check water temperature with your elbow, not your foot. Do not use a heating pad on your feet. Do not cross your legs. Do not self-treat your corns, calluses, or other foot problems. Go to your health care provider or finish saw operator to treat these conditions. documented in this encounterMercy [facility]08-15-2022 Miscellaneous Notes* Telephone Encounter - Mckayla Scherer MA - 10/27/2021 1:27 PM EDT Patient has been identified by name and date of : Yes Requested Prescriptions Pending Prescriptions Disp Refills folic acid 1 mg tablet 180 tablet 3 Sig: Take 2 tablets by mouth once daily. RX INSTRUCTIONS: Patient aware RX will be sent to pharmacy. No need to notify patient. Mckayla Scherer MA Kasandra: 06/2021 Nov; 12/2021 Last refill 10/2020 * Telephone Encounter - Caprice Ponce - 10/27/2021 1:22 PM EDT Patient has been identified by name and date of : Yes Requested Prescriptions Pending Prescriptions Disp Refills folic acid 1 mg tablet 180 tablet 3 Sig: Take 2 tablets by mouth once daily. RX INSTRUCTIONS: Patient aware RX will be sent to pharmacy. No need to notify patient. Caprice Ponce documented in this encounterMer[facility]07-05-2022 Miscellaneous Notes* Telephone Encounter - Darryl Vazquez LPN - 09/16/2021 11:58 AM EDT KASANDRA 06/17/21 NOV 12/19/21 * Telephone Encounter - Caprice Ponce - 09/16/2021 9:59 AM EDT Patient has been identified by name and date of : Yes Pending Prescriptions Disp Refills GLIPIZIDE 5 MG TABLET 225 tablet 1 Sig: Take 1 1/2 tablets PO in the morning and 1 tablet PO at night. ELVI: No RX INSTRUCTIONS: Patient aware RX will be sent to pharmacy. No need to notify patient. Caprice Ponce documented in this encounterMercy [facility]06-28-2022 Miscellaneous Notes* Telephone Encounter - Joceline Varela Ma - 09/09/2021 9:37 AM EDT Last office visit: 06/17/21 F/u scheduled: 12/19/21 Pt asking for new glucometer. Joceline Varela Ma * Telephone Encounter - Latanya Kurtz - 09/09/2021 9:28 AM EDT Patient has been identified by name and date of : Yes Pending Prescriptions Disp Refills PANTOPRAZOLE 40 MG TABLET,DELAYED RELEASE 90 tablet 1 Sig: Take 1 tablet by mouth daily before breakfast. Take on empty stomach, 1/2 hr before meal. ELVI: No FUROSEMIDE 20 MG TABLET 90 tablet 1 Sig: Take 1 tablet by mouth once daily. ELVI: No RX INSTRUCTIONS: patient also needs new glucose meter Patient aware RX will be sent to pharmacy. No need to notify patient. Latanya Kurtz documented in this encounterMercy Health [facility] Hospital06-24-2022 History of Present illness Narrative* Karolina Mcgee - 09/05/2021 1:36 PM EDT Last saw Dr. Fuentes: 06/17/21 Subjective: Patient presents to clinic c/o painful toenails. They state that the nails are especially painful with shoe gear and pressure. Patient states that nails 1-5 b/l are painful. Patient admits to being diabetic. No other pedal complaints at this time. Patient states no change in medications or medical history since last visit. Objective: Patient presents to clinic ambulating in sas shoes Vasc: DP and PT pulses are palpable bilateral. CFT is less than 5 seconds bilateral. Skin temperature is warm to cool proximal to distal bilateral. There is moderate edema or varicosities noted. Neuro: Protective sensation is intact to the foot and toes when tested with the 5.07 SWM bilateral.Vibratory sensation is decreased at the hallux IPJ bilateral. The hallux is downgoing bilateral. Derm: Nails 1-5 b/l are painful, discolored-yellow, thick, crumbly, dystrophic and with subungal debris. Skin is of normal turgor, texture and hair growth is present bilateral. There are no hyperkeratosis, ulcerations, scars, verruca or other lesions noted. Ortho: Muscle strength is 5/5 for all pedal groups tested. Ankle joint DF is full with the knee extended with no pain or crepitus noted. 1st MPJ ROM is full bilateral. Assessment: (B35.1) Onychomycosis (primary encounter diagnosis) (M79.674) Pain in toe of right foot (M79.675) Pain in toe of left foot (E11.9) Type 2 diabetes mellitus without complication, without long-term current use of insulin ([facility]) Plan: Patient was seen and evaluated. Nails 1-5 bilateral were debrided in length and thickness. Patient was instructed on the continued importance of diabetic foot care along with proper diet and keeping their blood sugar under control to prevent complications. Offered compression stockings for swelling. She declined. Patient is to RTC in 3-4 months. Karolina Mcgee DPM * Mabel Hamlin LPN - 09/05/2021 1:30 PM EDT AMB ROOMING INTAKE FLOWSHEET DATA Risk Screening Do you have concerns about personal safety or safety in the home?: Yes. Provider notified (falling) Patient presents with: Left Foot - Established Patient, Follow Up, nail care Right Foot - Established Patient, Follow Up, nail care Mabel Hamlin LPN documented in this encounterMercy [facility]06-24-2022 Instructions* Patient Instructions* Karolina Mcgee - 09/05/2021 1:36 PM EDT Diabetes Foot Care Instructions When you have diabetes, proper foot care is very important. Poor foot care may lead to amputation of a foot or leg. As a person with diabetes, you are more vulnerable to foot problems, because diabetes can damage your nerves and reduce blood flow to your feet. Here are some diabetes foot care tips to follow: Wash and Dry Your Feet Daily Use mild soaps Use warm water Pat your skin dry; do not rub. Thoroughly dry your feet. After washing, use lotion on your feet to prevent cracking. Do not put lotion between your toes. Examine Your Feet Each Day Check the tops and bottoms of your feet. Have someone else look at your feet if you cannot see them. Check for dry, cracked skin. Look for blisters, cuts, scratches, or other sores. Check for redness, increased warmth, or tenderness when touching any area of your feet. Check for ingrown toenails, corns, and calluses. If you get a blister or sore from your shoes, do not pop it. Apply a bandage and wear a differentpair of shoes. Take Care of Your Toenails Cut toenails after bathing, when they are soft. Cut toenails straight across and smooth with a nail file. Avoid cutting into the corners of toes. Do not cut cuticles. If you have neuropathy (or decreased sensation in your feet) a finish saw operator should always cut your toenails. Be Careful When Exercising Walk and exercise in comfortable shoes. Do not exercise when you have open sores on your feet. Protect Your Feet With Shoes and Socks Never go barefoot. Always protect your feet by wearing shoes or hard-soled slippers or footwear. Avoid shoes with high heels and pointed toes. Avoid shoes that expose your toes or heels (such as open-toed shoes or sandals). These types of shoes increase your risk for injury and potential infections. Try on new footwear with the type of socks you usually wear. Do not wear new shoes for more than an hour at a time. Change your socks daily. Look and feel inside your shoes before putting them on to make sure there are no foreign objects orrough areas. Avoid tight socks. Wear natural-fiber socks (cotton, wool, or a cotton-wool blend). Wear special shoes if your health care provider recommends them. Wear shoes/boots that will protect your feet from various weather conditions (cold, moisture, etc.). Make sure your shoes fit properly. If you have neuropathy (nerve damage), you may not notice that your shoes are too tight. Perform the footwear test described below. Footwear Test Use this simple test to see if your shoes fit correctly: Stand on a piece of paper. (Make sure you are standing and not sitting, because your foot changes shape when you stand.) Trace the outline of your foot. Trace the outline of your shoe. Compare the tracings: Is the shoe too narrow? Is your foot crammed into the shoe? The shoe should be at least 1/2 inch longer than your longest toe and as wide as your foot. Proper Shoe Choices The following types of shoes are best for people with diabetes Closed toes and heels Leather uppers without a seam inside At least 1/2 inch extra space at the end of your longest toe Inside of shoe should be soft with no rough areas Outer sole should be made of stiff material Shoes should be at least as wide as your feet Tips for Foot Care in Diabetes Don't wait to treat a minor foot problem if you have diabetes. Follow your health care provider's guidelines and first aid guidelines. Report foot injuries and infections to your health care provider immediately. Check water temperature with your elbow, not your foot. Do not use a heating pad on your feet. Do not cross your legs. Do not self-treat your corns, calluses, or other foot problems. Go to your health care provider or finish saw operator to treat these conditions. [facility] this [facility] Miscellaneous Notes* Telephone Encounter - Pippa Paniagua Pss - 08/18/2021 10:14 AM EDT Patient has been identified by name and date of : Yes Pending Prescriptions Disp Refills CARVEDILOL 25 MG TABLET 180 tablet 3 Sig: Take 1 tablet by mouth twice daily. ELVI: No KASANDRA-06/17/21 Labs-06/17/21 NOV-12/19/21 Med filled 08/22/20 RX INSTRUCTIONS: Patient aware RX will be sent to pharmacy. No need to notify patient. Pippa Paniagua Pss documented in this encounterMer[facility]05-23-[facility]22 Miscellaneous Notes* Telephone Encounter - Darryl Vazquez LPN - 08/04/2021 5:23 PM EDT KASANDRA 06/17/21 NOV 12/19/21 * Telephone Encounter - Kayla Casper [facility] [place] - 08/04/2021 11:53 AM EDT Patient has been identified by name and date of : Yes Pending Prescriptions Disp Refills PRAVASTATIN 80 MG TABLET 30 tablet 11 Sig: Take 1 tablet by mouth daily at bedtime. ELVI: No LEVOTHYROXINE 75 MCG TABLET 90 tablet 3 Sig: Take 1 tablet by mouth once daily. ELVI: No RX INSTRUCTIONS: Patient aware RX will be sent to pharmacy. No need to notify patient. [facility]04-11-2022 Miscellaneous Notes* Telephone Encounter - Caprice Ponce - 06/23/2021 8:53 AM EDT Patient has been identified by name and date of : Yes Pending Prescriptions Disp Refills CITALOPRAM 20 MG TABLET 90 tablet 1 Sig: Take 1 tablet by mouth once daily. ELVI: No RX INSTRUCTIONS: Patient aware RX will be sent to pharmacy. No need to notify patient. Caprice Ponce documented in this [facility]Mer[facility]04-[facility]22 History of Present illness Narrative* Frank Fuentes MD - 06/17/2021 3:02 PM EDT Chief Complaint Patient presents with: Follow Up: 6 month HPI Neelam Ryan is a 86 year old female who presents here today for Above Complaints. Patient notes that she fell in the shower last fall without injury or LOC. Does not have grab bars in the shower she fell in. Has another shower that has bars, is walk in, and has seat. Using cane for ambulation and feels steady with use. DIABETES MELLITUS: Ms. Ryan was last seen 6 months ago. Since our last visit she denies excessive thirst or increased frequency of urination, numbness, tingling or pain in extremities, new or unusual visual symptoms and low sugar/hypoglycemic reactions. Follows a diabetic diet most of the time.She is compliant with medication(s) and is tolerating med(s) without any side effects. She reports checking her glucose on a once a day schedule with sugars in the fasting <150 range. Patient's last HgA1C was Hemoglobin A1C (%) Date Value 12/12/2020 7.8 06/11/2020 8.1 ) Last Ophthalmology exam was within the past 12 months Last Podiatry exam was within the past 12 months No changes to regimen per Dr. Davenport in March for history of CAD s/p stents to RCA. Has not needednitro in the last 6 months, but pills have and she needs refill. Depression: well controlled on Celexa. Denies SI/HI. Past medical history, appointments, medications, allergies reviewed. Previous Medical History PAST MEDICAL HISTORY Diagnosis Date Basal cell carcinoma Cholecystitis, unspecified Chronic kidney disease (CKD), stage IV (severe) (HCC) Coronary atherosclerosis of unspecified type of vessel, tulalip or graft Dr. Davenport Depression Hammertoes of both feet Multinodular goiter 05/21/2016 Osteoarthritis Other and unspecified anemias Pure hypercholesterolemia Sciatica Swelling of lower extremity Type II or unspecified type diabetes mellitus without mention of complication, not stated as uncontrolled Podiatry-Dr. Mcgee Unspecified essential hypertension Unspecified hypothyroidism Previous Surgical History PAST SURGICAL HISTORY Procedure Laterality Date COLONOSCOPY FLX DX W/COLLJ SPEC WHEN PFRMD 01/30/2005 Colonoscopy COLONOSCOPY FLX DX W/COLLJ SPEC WHEN PFRMD 08/05/2015 Colonoscopy ESOPHAGOGASTRODUODENOSCOPY TRANSORAL DIAGNOSTIC 01/30/2005 EGD HEART CATHETERIZATION 09/2018 angiopasty of circumflex, 75% stenosis. LAD 80%. LAPAROSCOPY SURG CHOLECYSTECTOMY 12/02/2005 Cholecystectomy, lap PAST SURGICAL HISTORY OF hernia PAST SURGICAL HISTORY OF carpal tunnel both hands PAST SURGICAL HISTORY OF fingers different times PAST SURGICAL HISTORY OF trigger finger PAST SURGICAL HISTORY OF 06/21/2006 heart cath with stent placement [facility] PAST SURGICAL HISTORY OF 04/24/2008 vaginal hysterectomy, bladder suspension, rectocele PAST SURGICAL HISTORY OF 11/20/11 cardiac cath; percutaneous transluminal coronary angioplasty with stent @ [facility] PAST SURGICAL HISTORY OF left wrist surgery TOTAL THYROID LOBECTOMY UNI W/WO ISTHMUSECTOMY Right 05/21/2016 TRANSCATH STENT INIT VESSEL,PERCUT 08/18 Transcath stent init vessel percut LAD [place] [facility] Family History FAMILY HISTORY Problem Relation Age of Onset Diabetes Mother CAD, ANGIOPLASTY Diabetes Father DC other (DC) Brother other (OHS) Sister other (DC) Brother Heart Sister diabetic Heart Sister Heart Sister diabetic Heart Sister diabetic Patient Allergies ALLERGIES Allergen Reactions Accupril [Quinapril* Cough Sulfa (Sulfonamide * Hives Gabapentin Other: See Comments fatigue Current Medications Current Outpatient Medications on File Prior to Visit Medication Sig isosorbide mononitrate ER (IMDUR) 30 mg 24 hr tablet Take 1 tablet by mouth once daily. amLODIPine (NORVASC) 5 mg tablet Take 1 tablet by mouth once daily. glipiZIDE (GLUCOTROL) 5 mg tablet Take 1 1/2 tablets PO in the morning and 1 tablet PO at night. blood sugar diagnostic (BLOOD GLUCOSE TEST) test strip ProdigRSB SPINE Glucometer Test blood sugar(s) 1 time daily. Dx: Type 2 DM - Controlled E11.9 Insulin: No furosemide (LASIX) 20 mg tablet Take 1 tablet by mouth once daily. pantoprazole DR (PROTONIX) 40 mg tablet Take 1 tablet by mouth daily before breakfast. Take on empty stomach, 1/2 hr before meal. Lancets lancets Test blood sugar(s) 1 times daily. Dx: Type 2 DM - Controlled E11.9 Insulin: No citalopram (CELEXA) 20 mg tablet Take 1 tablet by mouth once daily. folic acid 1 mg tablet Take 2 tablets by mouth once daily. SITagliptin (JANUVIA) 50 mg tablet Take 1 tablet by mouth once daily. carvedilol (COREG) 25 mg tablet Take 1 tablet by mouth twice daily. levothyroxine (LEVOXYL) 75 mcg tablet Take 1 tablet by mouth once daily. pravastatin (PRAVACHOL) 80 mg tablet Take 1 tablet by mouth daily at bedtime. clopidogrel (PLAVIX) 75 mg tablet Take 1 tablet by mouth once daily. COMPOUNDED PRESCRIPTION Prodigy Glucometer test strips Test once daily. Dx: E11.9 Insulin: No nitroglycerin sublingual (NITROQUICK) 0.4 mg SL tablet Dissolve 1 tablet under the tongue as needed. DISSOLVE ONE(1) TABLET UNDER THE TOUNGUE NEEDED FOR CHEST PAIN,EVERY 5 MIN X3 Cholecalciferol, Vitamin D3, 1,000 unit cap Take 1 capsule by mouth once daily. COMPOUNDED PRESCRIPTION Lancets Test once daily. Dx: E11.9 Insulin: No Cranberry 500 mg cap Take 1 tablet by mouth once daily. aspirin(ECOTRIN LOW STRENGTH 81 MG TAB) Take one(1) tablet daily. XALATAN 0.005 % EYE DROPS one drop each eye at [facility] No current facility-administered medications on file prior to visit. Social History Social History Tobacco Use Smoking status: Never Smoker Smokeless tobacco: Never Used Vaping Use Vaping Use: Never used Substance Use Topics Alcohol use: No Drug use: No Review of Symptoms REVIEW OF SYSTEMS GENERAL: No weight loss, malaise or fevers RESPIRATORY: Negative for cough, hemoptysis, wheezing, COPD, dyspnea or shortness of breath CARDIOVASCULAR: Negative for chest pain, leg swelling, hypertension, CHF or palpitations GI: No nausea, vomiting, or diarrhea SKIN: Negative for lesions, rash, and itching EXAM: BP 110/58 Pulse 73 Resp 16 Wt 73.6 kg (162 lb 3.2 oz) SpO2 96% BMI 32.76 kg/m General Appearance: Well appearing, alert, in no acute distress, well-hydrated, well nourished.. Skin: Skin color, texture, turgor normal, no suspicious rashes or lesions. Lungs: Lungs clear to auscultation. No wheezing, rhonchi, rales.. Heart: RRR without murmur, gallop, or rubs. No ectopy. Abdomen: Normal abdominal exam, Abdomen soft, non-tender. Bowel sounds normal. No masses, organomegaly. Extremities: No deformities, edema, skin discoloration, clubbing or cyanosis. Good capillary refill. . Health Maintenance List SHINGRIX VACCINE(1 of 2) Never done ADVANCE DIRECTIVE DISCUSSION Never done HBA1C due on 06/11/2021 LDL CHOLESTEROL due on 06/11/2021 DILATED RETINAL EXAM due on 12/27/2021 DIABETIC FOOT EXAM due on 05/30/2022 DTAP,TDAP,TD(5 - Td or Tdap) due on 04/21/2028 BONE DENSITY Completed INFLUENZA Completed PNEUMOVAX AGE 65 AND OVER WITH 5YR LOOKBACK Completed COVID-19 VACCINE Completed MENINGOCOCCAL CONJUGATE Aged Out Data reviewed Component Latest Ref Rng & Units 12/12/2020 Protein, Total 6.3 - 8.0 g/dL 7.4 Albumin 3.9 - 4.9 g/dL 4.4 Calcium 8.5 - 10.2 mg/dL 10.0 Bilirubin, Total 0.2 - 1.3 mg/dL 0.4 Alkaline Phosphatase 34 - 123 U/L 50 AST 13 - 35 U/L 21 Glucose 74 - 99 mg/dL 169 (H) BUN 7 - 21 mg/dL 52 (H) Creatinine 0.58 - 0.96 mg/dL 1.89 (H) Sodium 136 - 144 mmol/L 133 (L) Potassium 3.7 - 5.1 mmol/L 4.8 Chloride 97 - 105 mmol/L 96 (L) CO2 22 - 30 mmol/L 23 Anion Gap 9 - 18 mmol/L 14 ALT 7 - 38 U/L 12 eGFR- 31 eGFR-All Other Races . 25 Creatinine, Ur Random (UCRR) 20 - 300 mg/dL 40.7 Albumin, Urine Random mg/L 15.8 Albumin/Creat Ratio <30 mg/g 39 (H) Hemoglobin A1C 4.3 - 5.6 % 7.8 (H) Estimated Average Glucose mg/dL 177 TSH 0.270 - 4.200 uU/mL 1.430 ASSESSMENT/PLAN: 1. Controlled type 2 diabetes mellitus with stage 4 chronic kidney disease, without long-term current use of insulin (HCC) - ICD9: 250.40, 585.4, ICD10: E11.22, N18.4 (primary diagnosis) Controlled. - Continue current medications - Blood glucose monitoring on a twice a day schedule - Encouraged regular aerobic exercise and weight loss - Follow up in 6 months, sooner should any other issues arise. 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 - HGB A1C - COMP METABOLIC PANEL - CBC - LIPID PANEL, NONFASTING 2. Chronic kidney disease (CKD), stage IV (severe) (HCC) - ICD9: 585.4, ICD10: N18.[address] Montgomery. No change to regimen. Discussed DM control, low sodium diet, avoidance of NSAIDs. 3. Essential hypertension - ICD9: 401.9, ICD10: I10 - good control - Continue current medication(s) - Encouraged dietary sodium restriction/DASH diet - Recommended regular aerobic exercise. - Reviewed risks of HTN and principles of treatment - Goal of BP <140/90 4. Mixed hyperlipidemia - ICD9: 272.2, ICD10: E78.2 - to be determined upon return of lab results - Continue current medication. - Encouraged following a low fat, low cholesterol diet. - Discussed the benefits of regular aerobic exercise and weight loss. 5. Acquired hypothyroidism - ICD9: 244.9, ICD10: E03.9 - Instructed patient on importance of taking on an empty stomach either first thing in the morning or at bedtime. - continue current dose of Synthroid 0.075 mg 6. ASHD (arteriosclerotic heart disease) - ICD9: 414.00, ICD10: I25.10 Asymptomatic on current regimen. Refill nitro. F/u with cardiology. - NITROGLYCERIN 0.4 MG SUBLINGUAL TABLET 7. Fall in shower - ICD9: E885.9, ICD10: W18.2XXA Fall without injury. Advised patient to use shower that has grab bars and seat to help prevent falls. Red flags for re-assessment reviewed with patient in detail. 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, acquired 02/13/2009 12/30/2016 Type II or unspecified type diabetes mellitus with neurological manifestations, uncontrolled(250.62) 02/13/2009 08/22/2009 Unspecified cardiovascular disease 10/05/2005 12/30/2016 Calculus of gallbladder with acute cholecystitis, without mention of obstruction 02/24/2005 12/30/2016 Acute gastritis without mention of hemorrhage 01/31/2012/30/2016 Coronary atherosclerosis documented as of this encounter (statuses as of 06/30/2023) [facility] of Past illness Narrative* Problem Noted Date Diagnosed Date Resolved Date Chronic kidney disease (CKD) , stage IV (severe) 06/17/2021 06/29/2023 Medicare annual wellness visit, subsequent 08/30/2014 12/30/2016 Contusion of left middle fin omar with damage to nail 05/09/2013 12/30/2016 UTI (lower urinary tract infection) 08/13/2011 12/30/2016 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, acquired 02/13/2009 12/30/2016 Type II or unspecified type diabetes mellitus with neurological manifestations, uncontrolled(250.62) 02/13/2009 08/22/2009 Unspecified cardiovascular disease 10/05/2005 12/30/2016 Calculus of gallbladder with acute cholecystitis, without mention of obstruction 02/24/2005 12/30/2016 Acute gastritis without mention of hemorrhage 01/31/20 05 12/30/2016 Coronary atherosclerosis documented as of this encounter (statuses as of 06/30/2023) [facility] of Past illness Narrative* Problem Noted Date Resolved Date Medicare annual wellness visit, subsequent 08/3012/30/2016 Contusion of left middle finger with damage to n ail 05/09/2013 12/30/2016 UTI (lower urinary tract infection) 08/13/2011 12/30/2016 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, acquire d 02/13/2009 12/30/2016 Type II or unspecified type diabetes mellitus with neurological manifestations, uncontrolled(250.62) 02/13/200908/13 Unspecified cardiovascular disease 10/05/2005 12/30/2016 Calculus of gallbladder with acute cholecystitis, without mention of obstruction 02/24/2005 12/30/2016 Acute gastritis without mention of hemorrhage 12/30/2016 Coronary atherosclerosis 017 documented as of this encounter (statuses as of 06/21/2021) [facility] illness Narrative* Problem Noted Date Resolved Date Medicare annual wellness visit, subsequent 08/3012/30/2016 Contusion of left middle finger with damage to n ail 05/09/2013 12/30/2016 UTI (lower urinary tract infection) 08/13/2011 12/30/2016 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, acquire d 02/13/2009 12/30/2016 Type II or unspecified type diabetes mellitus with neurological manifestations, uncontrolled(250.62) 02/13/200908/13 Unspecified cardiovascular disease 10/05/2005 12/30/2016 Calculus of gallbladder with acute cholecystitis, without mention of obstruction 02/24/2005 12/30/2016 Acute gastritis without mention of hemorrhage 12/30/2016 Coronary atherosclerosis 017 documented as of this encounter (statuses as of 06/23/2021) [facility] illness Narrative* Problem Noted Date Resolved Date Medicare annual wellness visit, subsequent 08/3012/30/2016 Contusion of left middle finger with damage to n ail 05/09/2013 12/30/2016 UTI (lower urinary tract infection) 08/13/2011 12/30/2016 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, acquire d 02/13/2009 12/30/2016 Type II or unspecified type diabetes mellitus with neurological manifestations, uncontrolled(250.62) 02/13/200908/13 Unspecified cardiovascular disease 10/05/2005 12/30/2016 Calculus of gallbladder with acute cholecystitis, without mention of obstruction 02/24/2005 12/30/2016 Acute gastritis without mention of hemorrhage 12/30/2016 Coronary atherosclerosis 017 documented as of this encounter (statuses as of 08/05/2021) [facility] Narrative* Problem Noted Date Resolved Date Medicare annual wellness visit, subsequent 08/3012/30/2016 Contusion of left middle finger with damage to n ail 05/09/2013 12/30/2016 UTI (lower urinary tract infection) 08/13/2011 12/30/2016 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, acquire d 02/13/2009 12/30/2016 Type II or unspecified type diabetes mellitus with neurological manifestations, uncontrolled(250.62) 02/13/200908/13 Unspecified cardiovascular disease 10/05/2005 12/30/2016 Calculus of gallbladder with acute cholecystitis, without mention of obstruction 02/24/2005 12/30/2016 Acute gastritis without mention of hemorrhage 12/30/2016 Coronary atherosclerosis 017 documented as of this encounter (statuses as of 08/18/2021) [facility] Narrative* Problem Noted Date Resolved Date Medicare annual wellness visit, subsequent 08/3012/30/2016 Contusion of left middle finger with damage to n ail 05/09/2013 12/30/2016 UTI (lower urinary tract infection) 08/13/2011 12/30/2016 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, acquire d 02/13/2009 12/30/2016 Type II or unspecified type diabetes mellitus with neurological manifestations, uncontrolled(250.62) 02/13/200908/13 Unspecified cardiovascular disease 10/05/2005 12/30/2016 Calculus of gallbladder with acute cholecystitis, without mention of obstruction 02/24/2005 12/30/2016 Acute gastritis without mention of hemorrhage 12/30/2016 Coronary atherosclerosis 017 documented as of this encounter (statuses as of 09/05/2021) [facility] Narrative* Problem Noted Date Resolved Date Medicare annual wellness visit, subsequent 08/3012/30/2016 Contusion of left middle finger with damage to n ail 05/09/2013 12/30/2016 UTI (lower urinary tract infection) 08/13/2011 12/30/2016 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, acquire d 02/13/2009 12/30/2016 Type II or unspecified type diabetes mellitus with neurological manifestations, uncontrolled(250.62) 02/13/200908/13 Unspecified cardiovascular disease 10/05/2005 12/30/2016 Calculus of gallbladder with acute cholecystitis, without mention of obstruction 02/24/2005 12/30/2016 Acute gastritis without mention of hemorrhage 12/30/2016 Coronary atherosclerosis 017 documented as of this encounter (statuses as of 09/09/2021) [facility] Narrative* Problem Noted Date Resolved Date Medicare annual wellness visit, subsequent 08/3012/30/2016 Contusion of left middle finger with damage to n ail 05/09/2013 12/30/2016 UTI (lower urinary tract infection) 08/13/2011 12/30/2016 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, acquire d 02/13/2009 12/30/2016 Type II or unspecified type diabetes mellitus with neurological manifestations, uncontrolled(250.62) 02/13/200908/13 Unspecified cardiovascular disease 10/05/2005 12/30/2016 Calculus of gallbladder with acute cholecystitis, without mention of obstruction 02/24/2005 12/30/2016 Acute gastritis without mention of hemorrhage 12/30/2016 Coronary atherosclerosis 017 documented as of this encounter (statuses as of 09/16/2021) [facility] Narrative* Problem Noted Date Resolved Date Medicare annual wellness visit, subsequent 08/3012/30/2016 Contusion of left middle finger with damage to n ail 05/09/2013 12/30/2016 UTI (lower urinary tract infection) 08/13/2011 12/30/2016 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, acquire d 02/13/2009 12/30/2016 Type II or unspecified type diabetes mellitus with neurological manifestations, uncontrolled(250.62) 02/13/200908/13 Unspecified cardiovascular disease 10/05/2005 12/30/2016 Calculus of gallbladder with acute cholecystitis, without mention of obstruction 02/24/2005 12/30/2016 Acute gastritis without mention of hemorrhage 12/30/2016 Coronary atherosclerosis 017 documented as of this encounter (statuses as of 10/27/2021) [facility] Narrative* Problem Noted Date Resolved Date Medicare annual wellness visit, subsequent 08/3012/30/2016 Contusion of left middle finger with damage to n ail 05/09/2013 12/30/2016 UTI (lower urinary tract infection) 08/13/2011 12/30/2016 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, acquire d 02/13/2009 12/30/2016 Type II or unspecified type diabetes mellitus with neurological manifestations, uncontrolled(250.62) 02/13/200908/13 Unspecified cardiovascular disease 10/05/2005 12/30/2016 Calculus of gallbladder with acute cholecystitis, without mention of obstruction 02/24/2005 12/30/2016 Acute gastritis without mention of hemorrhage 12/30/2016 Coronary atherosclerosis 017 documented as of this encounter (statuses as of 12/15/2021) [facility] Narrative* Problem Noted Date Resolved Date Medicare annual wellness visit, subsequent 08/3012/30/2016 Contusion of left middle finger with damage to n ail 05/09/2013 12/30/2016 UTI (lower urinary tract infection) 08/13/2011 12/30/2016 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, acquire d 02/13/2009 12/30/2016 Type II or unspecified type diabetes mellitus with neurological manifestations, uncontrolled(250.62) 02/13/200908/13 Unspecified cardiovascular disease 10/05/2005 12/30/2016 Calculus of gallbladder with acute cholecystitis, without mention of obstruction 02/24/2005 12/30/2016 Acute gastritis without mention of hemorrhage 12/30/2016 Coronary atherosclerosis 017 documented as of this encounter (statuses as of 12/19/2021) [facility] Narrative* Problem Noted Date Resolved Date Medicare annual wellness visit, subsequent 08/3012/30/2016 Contusion of left middle finger with damage to n ail 05/09/2013 12/30/2016 UTI (lower urinary tract infection) 08/13/2011 12/30/2016 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, acquire d 02/13/2009 12/30/2016 Type II or unspecified type diabetes mellitus with neurological manifestations, uncontrolled(250.62) 02/13/200908/13 Unspecified cardiovascular disease 10/05/2005 12/30/2016 Calculus of gallbladder with acute cholecystitis, without mention of obstruction 02/24/2005 12/30/2016 Acute gastritis without mention of hemorrhage 12/30/2016 Coronary atherosclerosis 017 documented as of this encounter (statuses as of 12/22/2021) [facility] History of Past illness Narrative* Problem Noted Date Resolved Date Medicare annual wellness visit, subsequent 08/3012/30/2016 Contusion of left middle finger with damage to n ail 05/09/2013 12/30/2016 UTI (lower urinary tract infection) 08/13/2011 12/30/2016 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, acquire d 02/13/2009 12/30/2016 Type II or unspecified type diabetes mellitus with neurological manifestations, uncontrolled(250.62) 02/13/200908/13 Unspecified cardiovascular disease 10/05/2005 12/30/2016 Calculus of gallbladder with acute cholecystitis, without mention of obstruction 02/24/2005 12/30/2016 Acute gastritis without mention of hemorrhage 12/30/2016 Coronary atherosclerosis 017 documented as of this encounter (statuses as of 12/24/2021) [facility] History of Past illness Narrative* Problem Noted Date Resolved Date Medicare annual wellness visit, subsequent 08/3012/30/2016 Contusion of left middle finger with damage to n ail 05/09/2013 12/30/2016 UTI (lower urinary tract infection) 08/13/2011 12/30/2016 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, acquire d 02/13/2009 12/30/2016 Type II or unspecified type diabetes mellitus with neurological manifestations, uncontrolled(250.62) 02/13/200908/13 Unspecified cardiovascular disease 10/05/2005 12/30/2016 Calculus of gallbladder with acute cholecystitis, without mention of obstruction 02/24/2005 12/30/2016 Acute gastritis without mention of hemorrhage 12/30/2016 Coronary atherosclerosis 017 documented as of this encounter (statuses as of 02/23/2022) [facility] History of Past illness Narrative* Problem Noted Date Resolved Date Medicare annual wellness visit, subsequent 08/3012/30/2016 Contusion of left middle finger with damage to n ail 05/09/2013 12/30/2016 UTI (lower urinary tract infection) 08/13/2011 12/30/2016 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, acquire d 02/13/2009 12/30/2016 Type II or unspecified type diabetes mellitus with neurological manifestations, uncontrolled(250.62) 02/13/200908/13 Unspecified cardiovascular disease 10/05/2005 12/30/2016 Calculus of gallbladder with acute cholecystitis, without mention of obstruction 02/24/2005 12/30/2016 Acute gastritis without mention of hemorrhage 12/30/2016 Coronary atherosclerosis 017 documented as of this encounter (statuses as of 02/23/2022) [facility] History of Past illness Narrative* Problem Noted Date Resolved Date Medicare annual wellness visit, subsequent 08/3012/30/2016 Contusion of left middle finger with damage to n ail 05/09/2013 12/30/2016 UTI (lower urinary tract infection) 08/13/2011 12/30/2016 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, acquire d 02/13/2009 12/30/2016 Type II or unspecified type diabetes mellitus with neurological manifestations, uncontrolled(250.62) 02/13/200908/13 Unspecified cardiovascular disease 10/05/2005 12/30/2016 Calculus of gallbladder with acute cholecystitis, without mention of obstruction 02/24/2005 12/30/2016 Acute gastritis without mention of hemorrhage 12/30/2016 Coronary atherosclerosis 017 documented as of this encounter (statuses as of 03/20/2022) [facility] History of Past illness Narrative* Problem Noted Date Resolved Date Medicare annual wellness visit, subsequent 08/3012/30/2016 Contusion of left middle finger with damage to n ail 05/09/2013 12/30/2016 UTI (lower urinary tract infection) 08/13/2011 12/30/2016 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, acquire d 02/13/2009 12/30/2016 Type II or unspecified type diabetes mellitus with neurological manifestations, uncontrolled(250.62) 02/13/200908/13 Unspecified cardiovascular disease 10/05/2005 12/30/2016 Calculus of gallbladder with acute cholecystitis, without mention of obstruction 02/24/2005 12/30/2016 Acute gastritis without mention of hemorrhage 12/30/2016 Coronary atherosclerosis 017 documented as of this encounter (statuses as of 05/13/2022) [facility] History of Past illness Narrative* Problem Noted Date Resolved Date Medicare annual wellness visit, subsequent 08/3012/30/2016 Contusion of left middle finger with damage to n ail 05/09/2013 12/30/2016 UTI (lower urinary tract infection) 08/13/2011 12/30/2016 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, acquire d 02/13/2009 12/30/2016 Type II or unspecified type diabetes mellitus with neurological manifestations, uncontrolled(250.62) 02/13/200908/13 Unspecified cardiovascular disease 10/05/2005 12/30/2016 Calculus of gallbladder with acute cholecystitis, without mention of obstruction 02/24/2005 12/30/2016 Acute gastritis without mention of hemorrhage 12/30/2016 Coronary atherosclerosis 017 documented as of this encounter (statuses as of 06/01/2022) [facility] History of Past illness Narrative* Problem Noted Date Resolved Date Medicare annual wellness visit, subsequent 08/3012/30/2016 Contusion of left middle finger with damage to n ail 05/09/2013 12/30/2016 UTI (lower urinary tract infection) 08/13/2011 12/30/2016 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, acquire d 02/13/2009 12/30/2016 Type II or unspecified type diabetes mellitus with neurological manifestations, uncontrolled(250.62) 02/13/200908/13 Unspecified cardiovascular disease 10/05/2005 12/30/2016 Calculus of gallbladder with acute cholecystitis, without mention of obstruction 02/24/2005 12/30/2016 Acute gastritis without mention of hemorrhage 12/30/2016 Coronary atherosclerosis 017 documented as of this encounter (statuses as of 06/11/2022) [facility] History of Past illness Narrative* Problem Noted Date Resolved Date Medicare annual wellness visit, subsequent 08/3012/30/2016 Contusion of left middle finger with damage to n ail 05/09/2013 12/30/2016 UTI (lower urinary tract infection) 08/13/2011 12/30/2016 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, acquire d 02/13/2009 12/30/2016 Type II or unspecified type diabetes mellitus with neurological manifestations, uncontrolled(250.62) 02/13/200908/13 Unspecified cardiovascular disease 10/05/2005 12/30/2016 Calculus of gallbladder with acute cholecystitis, without mention of obstruction 02/24/2005 12/30/2016 Acute gastritis without mention of hemorrhage 12/30/2016 Coronary atherosclerosis 017 documented as of this encounter (statuses as of 06/15/2022) [facility] History of Past illness Narrative* Problem Noted Date Resolved Date Medicare annual wellness visit, subsequent 08/3012/30/2016 Contusion of left middle finger with damage to n ail 05/09/2013 12/30/2016 UTI (lower urinary tract infection) 08/13/2011 12/30/2016 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, acquire d 02/13/2009 12/30/2016 Type II or unspecified type diabetes mellitus with neurological manifestations, uncontrolled(250.62) 02/13/200908/13 Unspecified cardiovascular disease 10/05/2005 12/30/2016 Calculus of gallbladder with acute cholecystitis, without mention of obstruction 02/24/2005 12/30/2016 Acute gastritis without mention of hemorrhage 12/30/2016 Coronary atherosclerosis 017 documented as of this encounter (statuses as of 06/24/2022) [facility] History of Past illness Narrative* Problem Noted Date Resolved Date Medicare annual wellness visit, subsequent 08/3012/30/2016 Contusion of left middle finger with damage to n ail 05/09/2013 12/30/2016 UTI (lower urinary tract infection) 08/13/2011 12/30/2016 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, acquire d 02/13/2009 12/30/2016 Type II or unspecified type diabetes mellitus with neurological manifestations, uncontrolled(250.62) 02/13/200908/13 Unspecified cardiovascular disease 10/05/2005 12/30/2016 Calculus of gallbladder with acute cholecystitis, without mention of obstruction 02/24/2005 12/30/2016 Acute gastritis without mention of hemorrhage 12/30/2016 Coronary atherosclerosis 017 documented as of this encounter (statuses as of 06/26/2022) [facility] History of Past illness Narrative* Problem Noted Date Resolved Date Medicare annual wellness visit, subsequent 08/3012/30/2016 Contusion of left middle finger with damage to n ail 05/09/2013 12/30/2016 UTI (lower urinary tract infection) 08/13/2011 12/30/2016 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, acquire d 02/13/2009 12/30/2016 Type II or unspecified type diabetes mellitus with neurological manifestations, uncontrolled(250.62) 02/13/200908/13 Unspecified cardiovascular disease 10/05/2005 12/30/2016 Calculus of gallbladder with acute cholecystitis, without mention of obstruction 02/24/2005 12/30/2016 Acute gastritis without mention of hemorrhage 12/30/2016 Coronary atherosclerosis 017 documented as of this encounter (statuses as of 07/13/2022) [facility] History of Past illness Narrative* Problem Noted Date Resolved Date Medicare annual wellness visit, subsequent 08/3012/30/2016 Contusion of left middle finger with damage to n ail 05/09/2013 12/30/2016 UTI (lower urinary tract infection) 08/13/2011 12/30/2016 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, acquire d 02/13/2009 12/30/2016 Type II or unspecified type diabetes mellitus with neurological manifestations, uncontrolled(250.62) 02/13/200908/13 Unspecified cardiovascular disease 10/05/2005 12/30/2016 Calculus of gallbladder with acute cholecystitis, without mention of obstruction 02/24/2005 12/30/2016 Acute gastritis without mention of hemorrhage 12/30/2016 Coronary atherosclerosis 017 documented as of this encounter (statuses as of 08/13/2022) [facility] History of Past illness Narrative* Problem Noted Date Resolved Date Medicare annual wellness visit, subsequent 08/3012/30/2016 Contusion of left middle finger with damage to n ail 05/09/2013 12/30/2016 UTI (lower urinary tract infection) 08/13/2011 12/30/2016 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, acquire d 02/13/2009 12/30/2016 Type II or unspecified type diabetes mellitus with neurological manifestations, uncontrolled(250.62) 02/13/200908/13 Unspecified cardiovascular disease 10/05/2005 12/30/2016 Calculus of gallbladder with acute cholecystitis, without mention of obstruction 02/24/2005 12/30/2016 Acute gastritis without mention of hemorrhage 12/30/2016 Coronary atherosclerosis 017 documented as of this encounter (statuses as of 08/28/2022) [facility] History of Past illness Narrative* Problem Noted Date Resolved Date Medicare annual wellness visit, subsequent 08/3012/30/2016 Contusion of left middle finger with damage to n ail 05/09/2013 12/30/2016 UTI (lower urinary tract infection) 08/13/2011 12/30/2016 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, acquire d 02/13/2009 12/30/2016 Type II or unspecified type diabetes mellitus with neurological manifestations, uncontrolled(250.62) 02/13/200908/13 Unspecified cardiovascular disease 10/05/2005 12/30/2016 Calculus of gallbladder with acute cholecystitis, without mention of obstruction 02/24/2005 12/30/2016 Acute gastritis without mention of hemorrhage 12/30/2016 Coronary atherosclerosis 017 documented as of this encounter (statuses as of 09/08/2022) [facility] History of Past illness Narrative* Problem Noted Date Diagnosed Date Resolved Date Medicare annual wellness visit, subsequent 08/30/2014 12/30/2016 Contusion of left middle fin omar with damage to nail 05/09/2013 12/30/2016 UTI (lower urinary tract infection) 08/13/2011 12/30/2016 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, acquired 02/13/2009 12/30/2016 Type II or unspecified type diabetes mellitus with neurological manifestations, uncontrolled(250.62) 02/13/2009 08/22/2009 Unspecified cardiovascular disease 10/05/2005 12/30/2016 Calculus of gallbladder with acute cholecystitis, without mention of obstruction 02/24/2005 12/30/2016 Acute gastritis without mention of hemorrhage 01/31/20 05 12/30/2016 Coronary atherosclerosis documented as of this encounter (statuses as of 09/23/2022) [facility] History of Past illness Narrative* Problem Noted Date Diagnosed Date Resolved Date Medicare annual wellness visit, subsequent 08/30/2014 12/30/2016 Contusion of left middle fin omar with damage to nail 05/09/2013 12/30/2016 UTI (lower urinary tract infection) 08/13/2011 12/30/2016 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, acquired 02/13/2009 12/30/2016 Type II or unspecified type diabetes mellitus with neurological manifestations, uncontrolled(250.62) 02/13/2009 08/22/2009 Unspecified cardiovascular disease 10/05/2005 12/30/2016 Calculus of gallbladder with acute cholecystitis, without mention of obstruction 02/24/2005 12/30/2016 Acute gastritis without mention of hemorrhage 01/31/20 05 12/30/2016 Coronary atherosclerosis documented as of this encounter (statuses as of 09/25/2022) [facility] History of Past illness Narrative* Problem Noted Date Diagnosed Date Resolved Date Medicare annual wellness visit, subsequent 08/30/2014 12/30/2016 Contusion of left middle fin omar with damage to nail 05/09/2013 12/30/2016 UTI (lower urinary tract infection) 08/13/2011 12/30/2016 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, acquired 02/13/2009 12/30/2016 Type II or unspecified type diabetes mellitus with neurological manifestations, uncontrolled(250.62) 02/13/2009 08/22/2009 Unspecified cardiovascular disease 10/05/2005 12/30/2016 Calculus of gallbladder with acute cholecystitis, without mention of obstruction 02/24/2005 12/30/2016 Acute gastritis without mention of hemorrhage 01/31/20 05 12/30/2016 Coronary atherosclerosis documented as of this encounter (statuses as of 10/12/2022) [facility] History of Past illness Narrative* Problem Noted Date Diagnosed Date Resolved Date Medicare annual wellness visit, subsequent 08/30/2014 12/30/2016 Contusion of left middle fin omar with damage to nail 05/09/2013 12/30/2016 UTI (lower urinary tract infection) 08/13/2011 12/30/2016 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, acquired 02/13/2009 12/30/2016 Type II or unspecified type diabetes mellitus with neurological manifestations, uncontrolled(250.62) 02/13/2009 08/22/2009 Unspecified cardiovascular disease 10/05/2005 12/30/2016 Calculus of gallbladder with acute cholecystitis, without mention of obstruction 02/24/2005 12/30/2016 Acute gastritis without mention of hemorrhage 01/31/20 05 12/30/2016 Coronary atherosclerosis documented as of this encounter (statuses as of 12/03/2022) [facility] History of Past illness Narrative* Problem Noted Date Diagnosed Date Resolved Date Medicare annual wellness visit, subsequent 08/30/2014 12/30/2016 Contusion of left middle fin omar with damage to nail 05/09/2013 12/30/2016 UTI (lower urinary tract infection) 08/13/2011 12/30/2016 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, acquired 02/13/2009 12/30/2016 Type II or unspecified type diabetes mellitus with neurological manifestations, uncontrolled(250.62) 02/13/2009 08/22/2009 Unspecified cardiovascular disease 10/05/2005 12/30/2016 Calculus of gallbladder with acute cholecystitis, without mention of obstruction 02/24/2005 12/30/2016 Acute gastritis without mention of hemorrhage 01/31/20 05 12/30/2016 Coronary atherosclerosis documented as of this encounter (statuses as of 12/15/2022) [facility] History of Past illness Narrative* Problem Noted Date Diagnosed Date Resolved Date Medicare annual wellness visit, subsequent 08/30/2014 12/30/2016 Contusion of left middle fin omar with damage to nail 05/09/2013 12/30/2016 UTI (lower urinary tract infection) 08/13/2011 12/30/2016 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, acquired 02/13/2009 12/30/2016 Type II or unspecified type diabetes mellitus with neurological manifestations, uncontrolled(250.62) 02/13/2009 08/22/2009 Unspecified cardiovascular disease 10/05/2005 12/30/2016 Calculus of gallbladder with acute cholecystitis, without mention of obstruction 02/24/2005 12/30/2016 Acute gastritis without mention of hemorrhage 01/31/20 05 12/30/2016 Coronary atherosclerosis documented as of this encounter (statuses as of 12/22/2022) [facility] History of Past illness Narrative* Problem Noted Date Diagnosed Date Resolved Date Medicare annual wellness visit, subsequent 08/30/2014 12/30/2016 Contusion of left middle fin omar with damage to nail 05/09/2013 12/30/2016 UTI (lower urinary tract infection) 08/13/2011 12/30/2016 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, acquired 02/13/2009 12/30/2016 Type II or unspecified type diabetes mellitus with neurological manifestations, uncontrolled(250.62) 02/13/2009 08/22/2009 Unspecified cardiovascular disease 10/05/2005 12/30/2016 Calculus of gallbladder with acute cholecystitis, without mention of obstruction 02/24/2005 12/30/2016 Acute gastritis without mention of hemorrhage 01/31/20 05 12/30/2016 Coronary atherosclerosis documented as of this encounter (statuses as of 12/24/2022) [facility] of Past illness Narrative* Problem Noted Date Diagnosed Date Resolved Date Medicare annual wellness visit, subsequent 08/30/2014 12/30/2016 Contusion of left middle fin omar with damage to nail 05/09/2013 12/30/2016 UTI (lower urinary tract infection) 08/13/2011 12/30/2016 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, acquired 02/13/2009 12/30/2016 Type II or unspecified type diabetes mellitus with neurological manifestations, uncontrolled(250.62) 02/13/2009 08/22/2009 Unspecified cardiovascular disease 10/05/2005 12/30/2016 Calculus of gallbladder with acute cholecystitis, without mention of obstruction 02/24/2005 12/30/2016 Acute gastritis without mention of hemorrhage 01/31/20 05 12/30/2016 Coronary atherosclerosis documented as of this encounter (statuses as of 01/28/2023) [facility] of Past illness Narrative* Problem Noted Date Diagnosed Date Resolved Date Medicare annual wellness visit, subsequent 08/30/2014 12/30/2016 Contusion of left middle fin omar with damage to nail 05/09/2013 12/30/2016 UTI (lower urinary tract infection) 08/13/2011 12/30/2016 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, acquired 02/13/2009 12/30/2016 Type II or unspecified type diabetes mellitus with neurological manifestations, uncontrolled(250.62) 02/13/2009 08/22/2009 Unspecified cardiovascular disease 10/05/2005 12/30/2016 Calculus of gallbladder with acute cholecystitis, without mention of obstruction 02/24/2005 12/30/2016 Acute gastritis without mention of hemorrhage 01/31/20 05 12/30/2016 Coronary atherosclerosis documented as of this encounter (statuses as of 02/07/2023) [facility] of Past illness Narrative* Problem Noted Date Diagnosed Date Resolved Date Medicare annual wellness visit, subsequent 08/30/2014 12/30/2016 Contusion of left middle fin omar with damage to nail 05/09/2013 12/30/2016 UTI (lower urinary tract infection) 08/13/2011 12/30/2016 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, acquired 02/13/2009 12/30/2016 Type II or unspecified type diabetes mellitus with neurological manifestations, uncontrolled(250.62) 02/13/2009 08/22/2009 Unspecified cardiovascular disease 10/05/2005 12/30/2016 Calculus of gallbladder with acute cholecystitis, without mention of obstruction 02/24/2005 12/30/2016 Acute gastritis without mention of hemorrhage 01/31/20 05 12/30/2016 Coronary atherosclerosis documented as of this encounter (statuses as of 02/09/2023) [facility] History of Past illness Narrative* Problem Noted Date Diagnosed Date Resolved Date Medicare annual wellness visit, subsequent 08/30/2014 12/30/2016 Contusion of left middle fin omar with damage to nail 05/09/2013 12/30/2016 UTI (lower urinary tract infection) 08/13/2011 12/30/2016 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, acquired 02/13/2009 12/30/2016 Type II or unspecified type diabetes mellitus with neurological manifestations, uncontrolled(250.62) 02/13/2009 08/22/2009 Unspecified cardiovascular disease 10/05/2005 12/30/2016 Calculus of gallbladder with acute cholecystitis, without mention of obstruction 02/24/2005 12/30/2016 Acute gastritis without mention of hemorrhage 01/31/20 05 12/30/2016 Coronary atherosclerosis documented as of this encounter (statuses as of 02/11/2023) [facility] History of Past illness Narrative* Problem Noted Date Diagnosed Date Resolved Date Medicare annual wellness visit, subsequent 08/30/2014 12/30/2016 Contusion of left middle fin omar with damage to nail 05/09/2013 12/30/2016 UTI (lower urinary tract infection) 08/13/2011 12/30/2016 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, acquired 02/13/2009 12/30/2016 Type II or unspecified type diabetes mellitus with neurological manifestations, uncontrolled(250.62) 02/13/2009 08/22/2009 Unspecified cardiovascular disease 10/05/2005 12/30/2016 Calculus of gallbladder with acute cholecystitis, without mention of obstruction 02/24/2005 12/30/2016 Acute gastritis without mention of hemorrhage 01/31/20 05 12/30/2016 Coronary atherosclerosis documented as of this encounter (statuses as of 02/16/2023) [facility] History of Past illness Narrative* Problem Noted Date Diagnosed Date Resolved Date Medicare annual wellness visit, subsequent 08/30/2014 12/30/2016 Contusion of left middle fin omar with damage to nail 05/09/2013 12/30/2016 UTI (lower urinary tract infection) 08/13/2011 12/30/2016 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, acquired 02/13/2009 12/30/2016 Type II or unspecified type diabetes mellitus with neurological manifestations, uncontrolled(250.62) 02/13/2009 08/22/2009 Unspecified cardiovascular disease 10/05/2005 12/30/2016 Calculus of gallbladder with acute cholecystitis, without mention of obstruction 02/24/2005 12/30/2016 Acute gastritis without mention of hemorrhage 01/31/20 05 12/30/2016 Coronary atherosclerosis documented as of this encounter (statuses as of 02/17/2023) [facility] of Past illness Narrative* Problem Noted Date Diagnosed Date Resolved Date Medicare annual wellness visit, subsequent 08/30/2014 12/30/2016 Contusion of left middle fin omar with damage to nail 05/09/2013 12/30/2016 UTI (lower urinary tract infection) 08/13/2011 12/30/2016 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, acquired 02/13/2009 12/30/2016 Type II or unspecified type diabetes mellitus with neurological manifestations, uncontrolled(250.62) 02/13/2009 08/22/2009 Unspecified cardiovascular disease 10/05/2005 12/30/2016 Calculus of gallbladder with acute cholecystitis, without mention of obstruction 02/24/2005 12/30/2016 Acute gastritis without mention of hemorrhage 01/31/20 05 12/30/2016 Coronary atherosclerosis documented as of this encounter (statuses as of 02/17/2023) [facility] History of Past illness Narrative* Problem Noted Date Diagnosed Date Resolved Date Medicare annual wellness visit, subsequent 08/30/2014 12/30/2016 Contusion of left middle fin omar with damage to nail 05/09/2013 12/30/2016 UTI (lower urinary tract infection) 08/13/2011 12/30/2016 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, acquired 02/13/2009 12/30/2016 Type II or unspecified type diabetes mellitus with neurological manifestations, uncontrolled(250.62) 02/13/2009 08/22/2009 Unspecified cardiovascular disease 10/05/2005 12/30/2016 Calculus of gallbladder with acute cholecystitis, without mention of obstruction 02/24/2005 12/30/2016 Acute gastritis without mention of hemorrhage 01/31/20 05 12/30/2016 Coronary atherosclerosis documented as of this encounter (statuses as of 02/19/2023) [facility] History of Past illness Narrative* Problem Noted Date Diagnosed Date Resolved Date Medicare annual wellness visit, subsequent 08/30/2014 12/30/2016 Contusion of left middle fin omar with damage to nail 05/09/2013 12/30/2016 UTI (lower urinary tract infection) 08/13/2011 12/30/2016 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, acquired 02/13/2009 12/30/2016 Type II or unspecified type diabetes mellitus with neurological manifestations, uncontrolled(250.62) 02/13/2009 08/22/2009 Unspecified cardiovascular disease 10/05/2005 12/30/2016 Calculus of gallbladder with acute cholecystitis, without mention of obstruction 02/24/2005 12/30/2016 Acute gastritis without mention of hemorrhage 01/31/20 05 12/30/2016 Coronary atherosclerosis documented as of this encounter (statuses as of 02/20/2023) [facility] History of Past illness Narrative* Problem Noted Date Diagnosed Date Resolved Date Medicare annual wellness visit, subsequent 08/30/2014 12/30/2016 Contusion of left middle fin omar with damage to nail 05/09/2013 12/30/2016 UTI (lower urinary tract infection) 08/13/2011 12/30/2016 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, acquired 02/13/2009 12/30/2016 Type II or unspecified type diabetes mellitus with neurological manifestations, uncontrolled(250.62) 02/13/2009 08/22/2009 Unspecified cardiovascular disease 10/05/2005 12/30/2016 Calculus of gallbladder with acute cholecystitis, without mention of obstruction 02/24/2005 12/30/2016 Acute gastritis without mention of hemorrhage 01/31/20 05 12/30/2016 Coronary atherosclerosis documented as of this encounter (statuses as of 02/23/2023) [facility] History of Past illness Narrative* Problem Noted Date Diagnosed Date Resolved Date Medicare annual wellness visit, subsequent 08/30/2014 12/30/2016 Contusion of left middle fin omar with damage to nail 05/09/2013 12/30/2016 UTI (lower urinary tract infection) 08/13/2011 12/30/2016 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, acquired 02/13/2009 12/30/2016 Type II or unspecified type diabetes mellitus with neurological manifestations, uncontrolled(250.62) 02/13/2009 08/22/2009 Unspecified cardiovascular disease 10/05/2005 12/30/2016 Calculus of gallbladder with acute cholecystitis, without mention of obstruction 02/24/2005 12/30/2016 Acute gastritis without mention of hemorrhage 01/31/20 05 12/30/2016 Coronary atherosclerosis documented as of this encounter (statuses as of 03/04/2023) [facility] History of Past illness Narrative* Problem Noted Date Diagnosed Date Resolved Date Medicare annual wellness visit, subsequent 08/30/2014 12/30/2016 Contusion of left middle fin omar with damage to nail 05/09/2013 12/30/2016 UTI (lower urinary tract infection) 08/13/2011 12/30/2016 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, acquired 02/13/2009 12/30/2016 Type II or unspecified type diabetes mellitus with neurological manifestations, uncontrolled(250.62) 02/13/2009 08/22/2009 Unspecified cardiovascular disease 10/05/2005 12/30/2016 Calculus of gallbladder with acute cholecystitis, without mention of obstruction 02/24/2005 12/30/2016 Acute gastritis without mention of hemorrhage 01/31/20 05 12/30/2016 Coronary atherosclerosis documented as of this encounter (statuses as of 04/21/2023) [facility] History of Past illness Narrative* Problem Noted Date Diagnosed Date Resolved Date Medicare annual wellness visit, subsequent 08/30/2014 12/30/2016 Contusion of left middle fin omar with damage to nail 05/09/2013 12/30/2016 UTI (lower urinary tract infection) 08/13/2011 12/30/2016 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, acquired 02/13/2009 12/30/2016 Type II or unspecified type diabetes mellitus with neurological manifestations, uncontrolled(250.62) 02/13/2009 08/22/2009 Unspecified cardiovascular disease 10/05/2005 12/30/2016 Calculus of gallbladder with acute cholecystitis, without mention of obstruction 02/24/2005 12/30/2016 Acute gastritis without mention of hemorrhage 01/31/20 05 12/30/2016 Coronary atherosclerosis documented as of this encounter (statuses as of 05/25/2023) [facility] History of Past illness Narrative* Problem Noted Date Diagnosed Date Resolved Date Medicare annual wellness visit, subsequent 08/30/2014 12/30/2016 Contusion of left middle fin omar with damage to nail 05/09/2013 12/30/2016 UTI (lower urinary tract infection) 08/13/2011 12/30/2016 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, acquired 02/13/2009 12/30/2016 Type II or unspecified type diabetes mellitus with neurological manifestations, uncontrolled(250.62) 02/13/2009 08/22/2009 Unspecified cardiovascular disease 10/05/2005 12/30/2016 Calculus of gallbladder with acute cholecystitis, without mention of obstruction 02/24/2005 12/30/2016 Acute gastritis without mention of hemorrhage 01/31/20 05 12/30/2016 Coronary atherosclerosis documented as of this encounter (statuses as of 06/21/2023) [facility] History of Past illness Narrative* Problem Noted Date Diagnosed Date Resolved Date Medicare annual wellness visit, subsequent 08/30/2014 12/30/2016 Contusion of left middle fin omar with damage to nail 05/09/2013 12/30/2016 UTI (lower urinary tract infection) 08/13/2011 12/30/2016 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, acquired 02/13/2009 12/30/2016 Type II or unspecified type diabetes mellitus with neurological manifestations, uncontrolled(250.62) 02/13/2009 08/22/2009 Unspecified cardiovascular disease 10/05/2005 12/30/2016 Calculus of gallbladder with acute cholecystitis, without mention of obstruction 02/24/2005 12/30/2016 Acute gastritis without mention of hemorrhage 01/31/20 05 12/30/2016 Coronary atherosclerosis documented as of this encounter (statuses as of 06/25/2023) [facility] Evaluation note* Diagnosis Onset Date Resolution Status Fatigue acute Essential (primary) hypertension chronic Hyperlipidemia chronic History of coronary artery stent placement November 192011 resolved [facility] Work Phone: 1(191) 997-881309-07-2012 Evaluation note* Diagnosis Onset Date Resolution Status Essential (primary) hypertension chronic Hyperlipidemia chronic History of coronary artery stent placement November 192011 resolved [facility] Work Phone: 1([phone]) 720-131909-07-2012 Evaluation note* Diagnosis Onset Date Resolution Status Admit Date History of coronary artery stent placement November 20, 2011 acute April 13t h, 2024 11:18am Essential (primary) hypertension chronic April 27, 11:18am Hyperlipidemia chronic April 152024 11:18am [facility] Work Phone: Discharge summary Author Kyle Culver [facility] January 31, 2023 12:53pm Note Date/Time January 31, 2023 12:49pm [facility] Medical Records Department [address] [place] [address] Instructions for Home/Discharge Instructions 01/31/23 1248 MR#: [id number] Acct: [id number] Name: NEELAM RYAN Rep #:[id number] : 1935 87 From: Kyle Mcbride lynsey [facility]OL[place] PCP: Dr. Koko Fuentes MD Status :ADM IN Discharge Instructions Diet Discharge Diet: No restrictions Activity Discharge Activity: No Restrictions Weight Bearing Status: Full weight bearing Follow Up Care Please Follow Up With: Koko Fuentes MD When: 1 to 2 weeks Test Results: Test results from this visit will be discussed in further detail at your follow- up appointment, if applicable. Pending Tests Upon Discharge: None Discharge Plan Admission Admit Date/Time: 01/28/23 22:21 Primary Reason for Your Visit: Dyspnea on exertion Attending Provider: Kyle Culver Primary Care Provider: Koko Fuentes Consulting Providers: Joceline Montgomery; Shahnaz Reeves Instructions Additional Instructions / Restrictions: Take the following medications as prescribed for your volume overload: ? Lasix 40 mg daily ? Potassium supplement 10 mEq daily Continue all other home medications as previously prescribed. Follow-up with your primary care doctor in the next 1 to 2 weeks. Discharge Orders/Prescriptions Prescriptions: New furosemide 40 mg Tablet 40 mg PO DAILY 30 Days Qty: 30 0RF potassium chloride 10 mEq capsule, extended release 10 meq PO DAILY 30 Days Qty: 30 0RF Continued Januvia 50 mg tablet 50 mg PO DAILY glipizide [Glucotrol] 5 mg tablet 5 mg PO BID Patient Comments: 1.5 tablets in morning and 1 tablet in evening nitroglycerin 0.4 mg tablet, sublingual 0.4 mg SUBLINGUAL Q5-15M PRN (Reason: chest pain) Qty: 25 3RF amlodipine [Norvasc] 5 mg tablet 5 mg PO DAILY Qty: 90 3RF pantoprazole 40 mg tablet,delayed release (DR/EC) 40 mg PO DAILY latanoprost [Xalatan] 0.005 % drops 1 drp ophthalmic (eye) .daily qhs isosorbide mononitrate 30 mg tablet extended release 24 hr 60 mg PO DAILY PreserVision AREDS 4,296 mcg-226 mg-90 mg capsule 1 cap PO BID carvedilol 25 MG tablet 25 mg PO BID clopidogrel 75 MG tablet 75 mg PO DAILY aspirin 81 MG tablet 81 mg PO DAILY@0800 levothyroxine 75 MCG tablet 75 mcg PO QHS pravastatin 80 MG tablet 80 mg PO DAILY cranberry 500 MG capsule 500 mg PO DAILY cholecalciferol (vitamin D3) 1,000 UNIT tablet 1,000 unit PO DAILY citalopram 20 mg tablet 20 mg PO DAILY folic acid 1 mg tablet 1 mg PO BID cyanocobalamin (vitamin B-12) 1,000 mcg capsule 1,000 mcg PO DAILY Discontinued furosemide 20 MG tablet 20 mg PO DAILY Referrals / Follow Up: Koko Fuentes MD [Primary Care Provider] - Disposition Disposition (needs filled in before D/C Order can be placed): Home, Self Care 01/31/23 0286<Electronically signed by Kyle Culver DO>Kyle Culver DO CC: Dr. Koko Fuentes MD; Dr. Shahnaz Reeves MD; Dr. Joceline Montgomery DO ~ 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, without long-term current use of insulin (HCC)- Primary Chronic kidney disease (CKD), stage IV (severe) (HCC) Chronic kidney disease, Stage IV (severe) Essential hypertension Unspecified essential hypertension Mixed hyperlipidemia Acquired hypothyroidism Unspecified hypothyroidism ASHD (arteriosclerotic heart disease) Coronary atherosclerosis of unspecified type of vessel, tulalip or graft Fall in shower [facility] [place] [facility]* Diagnosis Mixed hyperlipidemia [facility] [place] [facility]* Diagnosis Onychomycosis- Primary Dermatophytosis of nail Pain in toe of right foot Pain in limb Pain in toe of left foot Pain in limb Type 2 diabetes mellitus without complication, without long-term current use of insulin (HCC) [facility]* Diagnosis Type 2 diabetes mellitus without complication, without long-term current use of insulin ([facility]) documented in this encounter [facility] noteNo assessment information availablePark[facility] Work Phone: Evaluation note* Diagnosis Type 2 diabetes mellitus without complication, without long-term current use of insulin (HCC)- Primary Essential hypertension Unspecified essential hypertension Chronic kidney disease (CKD), stage IV (severe) (HCC) Chronic kidney disease, Stage IV (severe) Acquired hypothyroidism Unspecified hypothyroidism 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 Recurrent major depressive disorder, in full remission (HCC) Actinic keratosis Unsteady gait Abnormality of gait Fall in home, initial encounter Need for influenza vaccination Need for prophylactic vaccination and inoculation against influenza Need for COVID-19 vaccine [facility] Diagnosis Unsteady gait- Primary Abnormality of gait [facility]* Diagnosis Sciatica, unspecified laterality- Primary [facility] [place] [facility]* Diagnosis Dysuria- Primary [facility]* Diagnosis Onychomycosis- Primary Dermatophytosis of nail Pain in toe of right foot Pain in limb Pain in toe of left foot Pain in limb Type 2 diabetes mellitus without complication, without long-term current use of insulin (HCC) Acquired hallux valgus of left foot Hallux valgus (acquired) Acquired hallux valgus of right foot Hallux valgus (acquired) Callus Corns and callosities [facility]* Diagnosis Type 2 diabetes mellitus without complication, without long-term current use of insulin ([facility])- Primary Hypertensive kidney disease with stage 4 chronic kidney disease (HCC) Acquired hypothyroidism Unspecified hypothyroidism 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 Mixed hyperlipidemia Falling episodes Lack of coordination Dog bite, initial encounter Recurrent major depressive disorder, 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, without long-term current use of insulin ([facility]) Chronic kidney disease, stage 3b ([facility]) [facility] Diagnosis Onychomycosis- Primary Dermatophytosis of nail Pain in toe of right foot Pain in limb Pain in toe of left foot Pain in limb Type 2 diabetes mellitus without complication, without long-term current use of insulin ([facility]) Acquired hallux valgus of left foot Hallux valgus (acquired) Acquired hallux valgus of right foot Hallux valgus (acquired) Callus Corns and callosities Hammer toe of right foot [facility] Diagnosis Type 2 diabetes mellitus without complication, without long-term current use of insulin ([facility])- Primary Acquired hypothyroidism Unspecified hypothyroidism ASHD (arteriosclerotic heart disease) Coronary atherosclerosis of unspecified type of vessel, tulalip or graft Essential hypertension Unspecified essential hypertension Stage 3b chronic kidney disease ([facility]) [facility] Diagnosis Onychomycosis- Primary Dermatophytosis of nail Pain in toe of right foot Pain in limb Pain in toe of left foot Pain in limb Type 2 diabetes mellitus without complication, without long-term current use of insulin ([facility]) [facility] Diagnosis Type 2 diabetes mellitus without complication, without long-term current use of insulin ([facility])- Primary Essential hypertension Unspecified essential hypertension Stage 3b chronic kidney disease (HCC) Mixed hyperlipidemia Acquired hypothyroidism Unspecified hypothyroidism ASHD (arteriosclerotic heart disease) Coronary atherosclerosis of unspecified type of vessel, tulalip or graft Gastroesophageal reflux disease, unspecified whether esophagitis present Need for vaccination Need for prophylactic vaccination and inoculation against unspecified single disease Encounter for immunization Need for other specified prophylactic vaccination against single bacterial disease [facility] [place] [facility] Diagnosis Onset Date Resolution Status Acute electrocardiogram changes acute JOHN (acute kidney injury) ac nikolski ROBINS (dyspnea on exertion) ac nikolski Fatigue acute Leukocytosis acute Acute on chronic anemia 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 Acute on chronic diastolic heart failure chronic Atherosclerosis of coronary artery without angina pectoris chronic Chronic kidney disease chron ic Essential (primary) hypertension chronic Hyperlipidemia chronic History of coronary angioplasty September 23, 2018 resolved History of coronary artery stent placement November 192011 resolved [facility] Work Phone: Evaluation note* Diagnosis Nontraumatic subarachnoid hemorrhage (HCC)- Primary Subarachnoid hemorrhage [facility] [place] [facility]* Diagnosis Subdural hematoma (HCC)- Primary Subdural hemorrhage Fall in home, subsequent encounter Acute on chronic diastolic congestive heart failure (HCC) Acute on chronic diastolic heart failure Bilateral rales Bilateral impacted cerumen Impacted cerumen Hospital discharge follow-up Other follow-up examination [facility] [place] [facility]* Diagnosis Subdural hematoma (HCC)- Primary Subdural hemorrhage [facility] [place] [facility]* Diagnosis Nontraumatic subarachnoid hemorrhage (HCC) Subarachnoid hemorrhage [facility] [place] [facility]* Diagnosis Onychomycosis- Primary Dermatophytosis of nail Pain in toe of right foot Pain in limb Pain in toe of left foot Pain in limb Type 2 diabetes mellitus without complication, without long-term current use of insulin (HCC) Acquired hallux valgus of right foot Hallux valgus (acquired) Hammer toe of right foot [facility] [place] [facility]* Diagnosis Type 2 diabetes mellitus without complication, without long-term current use of insulin (HCC)- Primary Essential hypertension Unspecified essential hypertension Stage 3b chronic kidney disease (HCC) Acquired hypothyroidism Unspecified hypothyroidism Recurrent major depressive disorder, 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, without long-term current use of insulin (HCC) [facility] [place] [facility]* Diagnosis Type 2 diabetes mellitus without complication, without long-term current use of insulin (HCC) [facility] [place] [facility]* Diagnosis Mixed hyperlipidemia [facility] [place] [facility]* Diagnosis Type 2 diabetes mellitus with stage 3b chronic kidney disease, without long-term current use of insulin (HCC)- Primary Essential hypertension Unspecified essential hypertension Mixed hyperlipidemia Stage 3b chronic kidney disease (HCC) Acquired hypothyroidism Unspecified hypothyroidism ASHD (arteriosclerotic heart disease) Coronary atherosclerosis of unspecified type of vessel, tulalip or graft Presence of 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 Postsurgical percutaneous transluminal coronary angioplasty status Recurrent major depressive disorder, in full remission ([facility]) Decreased breath sounds of both lungs Decreased breath sounds of both lungs [facility] Diagnosis Type 2 diabetes mellitus without complication, without long-term current use of insulin ([facility]) [facility] Diagnosis Decreased breath sounds of both lungs [facility] Diagnosis Acute on chronic diastolic congestive heart failure (HCC) Acute on chronic diastolic heart failure [facility] Diagnosis Onychomycosis- Primary Dermatophytosis of nail Pain in toe of right foot Pain in limb Pain in toe of left foot Pain in limb Type 2 diabetes mellitus without complication, without long-term current use of insulin ([facility]) Hammer toe of right foot [facility] Diagnosis Type 2 diabetes mellitus with stage 3b chronic kidney disease, without long-term current use of insulin ([facility])- Primary Essential hypertension Unspecified essential hypertension Mixed hyperlipidemia Encounter for immunization Need for other specified prophylactic vaccination against single bacterial disease [facility] [place] [facility]* Diagnosis Type 2 diabetes mellitus with stage 3b chronic kidney disease, without long-term current use of insulin ([facility])- Primary [facility] [place] [facility] Diagnosis Mixed hyperlipidemia [facility] Diagnosis Onychomycosis- Primary Dermatophytosis of nail Pain in toe of right foot Pain in limb Pain in toe of left foot Pain in limb Type 2 diabetes mellitus without complication, without long-term current use of insulin ([facility]) Hammer toe of right foot [facility] [place] [facility]* Diagnosis Type 2 diabetes mellitus with stage 3b chronic kidney disease, without long-term current use of insulin ([facility])- Primary Essential hypertension Unspecified essential hypertension Mixed hyperlipidemia Acquired hypothyroidism Unspecified hypothyroidism ASHD (arteriosclerotic heart disease) Coronary atherosclerosis of unspecified type of vessel, tulalip or graft Stage 3b chronic kidney disease (HCC) Recurrent major depressive disorder, in full remission (HCC) [facility] Type 2 diabetes mellitus with stage 3b chronic kidney disease, without long-term current use of insulin (HCC)- Primary [facility] Diagnosis Type 2 diabetes mellitus with stage 3b chronic kidney disease, without long-term current use of insulin (HCC) [facility] Diagnosis Type 2 diabetes mellitus with stage 3b chronic kidney disease, without long-term current use of insulin (HCC)- Primary [facility] Diagnosis Onychomycosis- Primary Dermatophytosis of nail Pain in toe of right foot Pain in limb Pain in toe of left foot Pain in limb Type 2 diabetes mellitus without complication, without long-term current use of insulin (HCC) Hammer toe of right foot Acquired hallux valgus of right foot Hallux valgus (acquired) Acquired hallux valgus of left foot Hallux valgus (acquired) Callus Corns and callosities [facility] Diagnosis Type 2 diabetes mellitus with stage 3b chronic kidney disease, without long-term current use of insulin (HCC)- Primary Essential hypertension Unspecified essential hypertension Mixed hyperlipidemia ASHD (arteriosclerotic heart disease) Coronary atherosclerosis of unspecified type of vessel, tulalip or graft Presence of 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 Postsurgical percutaneous transluminal coronary angioplasty status Recurrent major depressive disorder, in full remission Hypertensive kidney disease with stage 3b chronic kidney disease (HCC) Acquired hypothyroidism Unspecified hypothyroidism Memory loss Encounter for immunization Need for other specified prophylactic vaccination against single bacterial disease [facility] Diagnosis Mild cognitive impairment- Primary Mild cognitive impairment, so stated Type 2 diabetes mellitus with stage 3b chronic kidney disease, without long-term current use of insulin (HCC) Vitamin D deficiency Unspecified vitamin D deficiency [facility] Diagnosis Mixed hyperlipidemia [facility] Diagnosis Onychomycosis- Primary Dermatophytosis of nail Pain in toe of right foot Pain in limb Pain in toe of left foot Pain in limb Type 2 diabetes mellitus without complication, without long-term current use of insulin (HCC) [facility] Diagnosis Type 2 diabetes mellitus with stage 3b chronic kidney disease, without long-term current use of insulin (HCC)- Primary Urinary frequency Acute cystitis without hematuria Acute cystitis Hypotension, unspecified hypotension type Essential hypertension Unspecified essential hypertension Hypertensive kidney disease with stage 3b chronic kidney disease (HCC) Fall in home, initial encounter documented in this encounter [facility]* Diagnosis Type 2 diabetes mellitus with stage 3b chronic kidney disease, without long-term current use of insulin (HCC) documented in this encounter [facility] note* Diagnosis Type 2 diabetes mellitus with stage 3b chronic kidney disease, without long-term current use of insulin (HCC) documented in this encounter [facility] note* Diagnosis Type 2 diabetes mellitus with stage 3b chronic kidney disease, without long-term current use of insulin (HCC) Essential (primary) hypertension Unspecified essential hypertension documented in this encounter [facility] for referral (narrative)No reason for referral information availableWCherrington [facility] Work Phone: Advance Directives Documents on File Type Date Recorded Patient In[employer] Expl anation Advance Directive(s) 08/05/2015 9:16 AM Advance Directive(s) 07/19/2015 4:00 PM Advance Directive Response Recorded Date/ Time Advance Directives Yes September 23 8:13am Living Will Yes September 23, 2018 8:13am Power of Women'S Lacrosse Coach Yes September 23 9 8:13am Advance Directive Response Recorded Date/ Time Advance Directives Yes September 23 7:13am Living Will Yes September 23, 2018 7:13am Power of Women'S Lacrosse Coach Yes September 23 9 7:13am Advance Directive Response Recorded Date/ Time Advance Directives Yes September 23 7:13am Living Will No January 28 023 5:25pm Power of Women'S Lacrosse Coach No January 28, 2023 5:25pm Advance Directive Response Recorded Date/ Time Advance Directives Yes September 23 7:13am Living Will No January 28 023 10:10pm Power of Women'S Lacrosse Coach No January 28, 2023 10:10pm Latest Code Status on File Code Status Date Activated Date Inactivated Comments DNR-CCA 02/06/2023 12:17 PM Question Answer Comments DNR Order Discussed With: Patient and De cision Surrogate Maker Latest Code Status on File Code Status Date Activated Date Inactivated Comments DNR-CCA 02/06/2023 12:17 PM 02/08/2023 8:14 PM Question Answer Comments DNR Order Discussed With: Patient and De cision Surrogate Maker Latest Code Status on File Code Status Date Activated Date Inactivated Comments DNR-CCA 02/06/2023 12:17 PM 02/08/2023 8:14 PM Question Answer Comments DNR Order Discussed With: Patient and De cision Surrogate Maker Date Activated Date Inactivated Comments 02/06/2023 12:17 PM 02/08/2023 8:14 PM Question Answer Comments DNR Order Discussed With: Patient and Decision S urrogate Maker Date Activated Date Inactivated Comments 02/06/2023 12:17 PM 02/08/2023 8:14 PM Question Answer Comments DNR Order Discussed With: Patient and Decision S urrogate Maker Advance Directive Response Recorded Date/ Time Living Will Yes February 05, 8:46pm Do you have a Healthcare Power of Women'S Lacrosse Coach? Yes February 05, 2023 8:46pm Advance Directives Yes September 23 8:13am Advance Directive Response Recorded Date/ Time Do you have a Healthcare Power of Women'S Lacrosse Coach? No October 11, 2024 1:22pm Advance Directives Yes September 23 8:13am Family History Relationship Condition Age at Onset Recorded Date/T kaylah Not Specified Diabetes mellitus Unknown Coronary artery disease Unknown Relationship Condition Age at Onset Recorded Date/T kaylah Not Specified Diabetes mellitus Unknown Type 2 diabetes mellitus Unknown Coronary artery disease Unknown Hyperlipidemia Unknown Hypothyroidism Unknown Obesity Unknown Reason for Referral Specialty Diagnoses / Procedures Referred By Shelby rosa Referred To Contact [facility] Diagnoses Fall in home, initial encounter Unsteady gait Procedures CONSULT TO PHYSICAL THERAPY PHYSICAL THERAPY EVALUATION HIGH COMPLEX 45 MINS Frank Fuentes MD [address] [place] [address] [facility] [address] [address] Referral ID Status Reason Start Date Expiration Date Visits Requested Visits Authorized [id number] Authorized PCP Requested Referral Auto-Generate d Referral 12/19/2021 12/19/2022 99 99 Specialty Diagnoses / Procedures Referred By Shelby rosa Referred To Contact Dermatology Diagnoses Actinic keratosis Procedures CONSULT TO DERMATOLOGY Frank Fuentes MD [address] [place] [address] Referral ID Status Reason Start Date Expiration Date Visits Requested Visits Authorized [id number] Ref Not Required PCP Requested Referral 12/19/2021 12/19/2022 1 1 Specialty Diagnoses / Procedures Referred By Annemarieac t Referred To Contact CT IMAGING Diagnoses Nontraumatic subarachnoid hemorrhage (HCC) Procedures CT BRAIN WO IVCON CT HEAD/BRAIN W/O CONTRAST MATERIAL Laurita Cintron PA-C [address] [place] [address] [place] [address] Referral ID Status Reason Start Date Expiration Date Visits Requested Visits Authorized [id number] Pending Review Auto-Generat ed Referral 3 03/08/2024 1 1 Specialty Diagnoses / Procedures Referred By Shelby t Referred To Contact Diagnoses Type 2 diabetes mellitus with stage 3b chronic kidney disease, without long-term current use of insulin (HCC) Frank Fuentes MD [address] [place] [address] Referral ID Status Reason Start Date Expiration Date V isits Requested Visits Authorized [id number] Authorized 12/29/2023 03/14/2024 1 1 Chief Complaint and Reason for Visit Chief Complaint 9 M FU EORDER Reason for Visit Fatigue Essential (primary) hypertension Hyperlipidemia History of coronary artery stent placement Chief Complaint kindney Chief Complaint 3 M FU Reason for Visit Essential (primary) hypertension Hyperlipidemia History of coronary artery stent placement Chief Complaint SOB Chief Complaint ROBINS/ACUTE DECOMPENSA SEUN DIASTOLIC CHF ROBINS/ACUTE DECOMPENSATED DIASTOLIC CHF ROBINS/ACUTE DECOMPENSATED DIASTOLIC CHF ROBINS/ACUTE DECOMPENSATED DIASTOLIC CHF Reason for Visit Acute electrocardiog duane changes JOHN (acute kidney injury) ROBINS (dyspnea on exertion) Fatigue Leukocytosis Acute on chronic anemia Acute on chronic diastolic heart failure Atherosclerosis of coronary artery without angina pectoris Chronic kidney disease Essential (primary) hypertension Hyperlipidemia History of coronary angioplasty History of coronary artery stent placement Chief Complaint Admit Date 6 M FU April 27, 2024 11:18am LABS August 21, 2024 2:06p m Reason for Visit Admit Date History of coronary artery stent placeme nt April 27, 2024 11:18am Essential (primary) hypertension Februar 2024 11:18am Hyperlipidemia April 27, 2024 11:18am Chief Complaint Admit Date LABS August 21, 2024 2:06p m T2DM W/ PERSISTANT HYPERGLYCEMIA, UTI, L JULIA MASS October 11, 2024 4:11pm Summary Purpose Additional Source Comments Source Comments (unrecognize d section and content) In the event this informatio n is protected by the Federal Confidentiality of Alcohol and Drug Abuse Patient Records regulations: The Federal rules restrict any use of the information to criminally investigate or prosecute any alcohol or drug abuse patient.[facility]In the event this information is protected by the Federal Confidentiality of Alcohol and Drug Abuse Patient Records regulations: The Federal rules restrict any use of the information to criminally investigate or prosecute any alcohol or drug abuse patient.[facility] HospitalIn the event this information is protected by the Federal Confidentiality of Alcohol and Drug Abuse Patient Records regulations: The Federal rules restrict any use of the information to criminally investigate or prosecute any alcohol or drug abuse patient.[facility] HospitalIn the event this information is protected by the Federal Confidentiality of Alcohol and Drug Abuse Patient Records regulations: The Federal rules restrict any use of the information to criminally investigate or prosecute any alcohol or drug abuse patient.[facility] HospitalIn the event this information is protected by the Federal Confidentiality of Alcohol and Drug Abuse Patient Records regulations: The Federal rules restrict any use of the information to criminally investigate or prosecute any alcohol or drug abuse patient.[facility] HospitalIn the event this information is protected by the Federal Confidentiality of Alcohol and Drug Abuse Patient Records regulations: The Federal rules restrict any use of the information to criminally investigate or prosecute any alcohol or drug abuse patient.[facility] HospitalIn the event this information is protected by the Federal Confidentiality of Alcohol and Drug Abuse Patient Records regulations: The Federal rules restrict any use of the information to criminally investigate or prosecute any alcohol or drug abuse patient.[facility] HospitalIn the event this information is protected by the Federal Confidentiality of Alcohol and Drug Abuse Patient Records regulations: The Federal rules restrict any use of the information to criminally investigate or prosecute any alcohol or drug abuse patient.[facility] HospitalIn the event this information is protected by the Federal Confidentiality of Alcohol and Drug Abuse Patient Records regulations: The Federal rules restrict any use of the information to criminally investigate or prosecute any alcohol or drug abuse patient.[facility] HospitalIn the event this information is protected by the Federal Confidentiality of Alcohol and Drug Abuse Patient Records regulations: The Federal rules restrict any use of the information to criminally investigate or prosecute any alcohol or drug abuse patient.[facility] HospitalIn the event this information is protected by the Federal Confidentiality of Alcohol and Drug Abuse Patient Records regulations: The Federal rules restrict any use of the information to criminally investigate or prosecute any alcohol or drug abuse patient.[facility] HospitalIn the event this information is protected by the Federal Confidentiality of Alcohol and Drug Abuse Patient Records regulations: The Federal rules restrict any use of the information to criminally investigate or prosecute any alcohol or drug abuse patient.[facility] HospitalIn the event this information is protected by the Federal Confidentiality of Alcohol and Drug Abuse Patient Records regulations: The Federal rules restrict any use of the information to criminally investigate or prosecute any alcohol or drug abuse patient.[facility] HospitalIn the event this information is protected by the Federal Confidentiality of Alcohol and Drug Abuse Patient Records regulations: The Federal rules restrict any use of the information to criminally investigate or prosecute any alcohol or drug abuse patient.[facility] HospitalIn the event this information is protected by the Federal Confidentiality of Alcohol and Drug Abuse Patient Records regulations: The Federal rules restrict any use of the information to criminally investigate or prosecute any alcohol or drug abuse patient.[facility] HospitalIn the event this information is protected by the Federal Confidentiality of Alcohol and Drug Abuse Patient Records regulations: The Federal rules restrict any use of the information to criminally investigate or prosecute any alcohol or drug abuse patient.[facility] HospitalIn the event this information is protected by the Federal Confidentiality of Alcohol and Drug Abuse Patient Records regulations: The Federal rules restrict any use of the information to criminally investigate or prosecute any alcohol or drug abuse patient.[facility] HospitalIn the event this information is protected by the Federal Confidentiality of Alcohol and Drug Abuse Patient Records regulations: The Federal rules restrict any use of the information to criminally investigate or prosecute any alcohol or drug abuse patient.[facility] HospitalIn the event this information is protected by the Federal Confidentiality of Alcohol and Drug Abuse Patient Records regulations: The Federal rules restrict any use of the information to criminally investigate or prosecute any alcohol or drug abuse patient.[facility] HospitalIn the event this information is protected by the Federal Confidentiality of Alcohol and Drug Abuse Patient Records regulations: The Federal rules restrict any use of the information to criminally investigate or prosecute any alcohol or drug abuse patient.[facility] HospitalIn the event this information is protected by the Federal Confidentiality of Alcohol and Drug Abuse Patient Records regulations: The Federal rules restrict any use of the information to criminally investigate or prosecute any alcohol or drug abuse patient.[facility] HospitalIn the event this information is protected by the Federal Confidentiality of Alcohol and Drug Abuse Patient Records regulations: The Federal rules restrict any use of the information to criminally investigate or prosecute any alcohol or drug abuse patient.[facility] HospitalIn the event this information is protected by the Federal Confidentiality of Alcohol and Drug Abuse Patient Records regulations: The Federal rules restrict any use of the information to criminally investigate or prosecute any alcohol or drug abuse patient.[facility] HospitalIn the event this information is protected by the Federal Confidentiality of Alcohol and Drug Abuse Patient Records regulations: The Federal rules restrict any use of the information to criminally investigate or prosecute any alcohol or drug abuse patient.[facility] HospitalIn the event this information is protected by the Federal Confidentiality of Alcohol and Drug Abuse Patient Records regulations: The Federal rules restrict any use of the information to criminally investigate or prosecute any alcohol or drug abuse patient.[facility] HospitalIn the event this information is protected by the Federal Confidentiality of Alcohol and Drug Abuse Patient Records regulations: The Federal rules restrict any use of the information to criminally investigate or prosecute any alcohol or drug abuse patient.[facility] HospitalIn the event this information is protected by the Federal Confidentiality of Alcohol and Drug Abuse Patient Records regulations: The Federal rules restrict any use of the information to criminally investigate or prosecute any alcohol or drug abuse patient.[facility] HospitalIn the event this information is protected by the Federal Confidentiality of Alcohol and Drug Abuse Patient Records regulations: The Federal rules restrict any use of the information to criminally investigate or prosecute any alcohol or drug abuse patient.[facility] HospitalIn the event this information is protected by the Federal Confidentiality of Alcohol and Drug Abuse Patient Records regulations: The Federal rules restrict any use of the information to criminally investigate or prosecute any alcohol or drug abuse patient.[facility] HospitalIn the event this information is protected by the Federal Confidentiality of Alcohol and Drug Abuse Patient Records regulations: The Federal rules restrict any use of the information to criminally investigate or prosecute any alcohol or drug abuse patient.[facility] HospitalIn the event this information is protected by the Federal Confidentiality of Alcohol and Drug Abuse Patient Records regulations: The Federal rules restrict any use of the information to criminally investigate or prosecute any alcohol or drug abuse patient.[facility] the event this information is protected by the Federal Confidentiality of Alcohol and Drug Abuse Patient Records regulations: The Federal rules restrict any use of the information to criminally investigate or prosecute any alcohol or drug abuse patient.[facility] HospitalIn the event this information is protected by the Federal Confidentiality of Alcohol and Drug Abuse Patient Records regulations: The Federal rules restrict any use of the information to criminally investigate or prosecute any alcohol or drug abuse patient.[facility] HospitalIn the event this information is protected by the Federal Confidentiality of Alcohol and Drug Abuse Patient Records regulations: The Federal rules restrict any use of the information to criminally investigate or prosecute any alcohol or drug abuse patient.[facility] the event this information is protected by the Federal Confidentiality of Alcohol and Drug Abuse Patient Records regulations: The Federal rules restrict any use of the information to criminally investigate or prosecute any alcohol or drug abuse patient.[facility] HospitalIn the event this information is protected by the Federal Confidentiality of Alcohol and Drug Abuse Patient Records regulations: The Federal rules restrict any use of the information to criminally investigate or prosecute any alcohol or drug abuse patient.[facility] HospitalIn the event this information is protected by the Federal Confidentiality of Alcohol and Drug Abuse Patient Records regulations: The Federal rules restrict any use of the information to criminally investigate or prosecute any alcohol or drug abuse patient.[facility] HospitalIn the event this information is protected by the Federal Confidentiality of Alcohol and Drug Abuse Patient Records regulations: The Federal rules restrict any use of the information to criminally investigate or prosecute any alcohol or drug abuse patient.[facility] HospitalIn the event this information is protected by the Federal Confidentiality of Alcohol and Drug Abuse Patient Records regulations: The Federal rules restrict any use of the information to criminally investigate or prosecute any alcohol or drug abuse patient.[facility] HospitalIn the event this information is protected by the Federal Confidentiality of Alcohol and Drug Abuse Patient Records regulations: The Federal rules restrict any use of the information to criminally investigate or prosecute any alcohol or drug abuse patient.[facility] HospitalIn the event this information is protected by the Federal Confidentiality of Alcohol and Drug Abuse Patient Records regulations: The Federal rules restrict any use of the information to criminally investigate or prosecute any alcohol or drug abuse patient.[facility] HospitalIn the event this information is protected by the Federal Confidentiality of Alcohol and Drug Abuse Patient Records regulations: The Federal rules restrict any use of the information to criminally investigate or prosecute any alcohol or drug abuse patient.[facility] HospitalIn the event this information is protected by the Federal Confidentiality of Alcohol and Drug Abuse Patient Records regulations: The Federal rules restrict any use of the information to criminally investigate or prosecute any alcohol or drug abuse patient.[facility] HospitalIn the event this information is protected by the Federal Confidentiality of Alcohol and Drug Abuse Patient Records regulations: The Federal rules restrict any use of the information to criminally investigate or prosecute any alcohol or drug abuse patient.[facility] HospitalIn the event this information is protected by the Federal Confidentiality of Alcohol and Drug Abuse Patient Records regulations: The Federal rules restrict any use of the information to criminally investigate or prosecute any alcohol or drug abuse patient.[facility] HospitalIn the event this information is protected by the Federal Confidentiality of Alcohol and Drug Abuse Patient Records regulations: The Federal rules restrict any use of the information to criminally investigate or prosecute any alcohol or drug abuse patient.[facility] HospitalIn the event this information is protected by the Federal Confidentiality of Alcohol and Drug Abuse Patient Records regulations: The Federal rules restrict any use of the information to criminally investigate or prosecute any alcohol or drug abuse patient.[facility] HospitalIn the event this information is protected by the Federal Confidentiality of Alcohol and Drug Abuse Patient Records regulations: The Federal rules restrict any use of the information to criminally investigate or prosecute any alcohol or drug abuse patient.[facility] HospitalIn the event this information is protected by the Federal Confidentiality of Alcohol and Drug Abuse Patient Records regulations: The Federal rules restrict any use of the information to criminally investigate or prosecute any alcohol or drug abuse patient.[facility] HospitalIn the event this information is protected by the Federal Confidentiality of Alcohol and Drug Abuse Patient Records regulations: The Federal rules restrict any use of the information to criminally investigate or prosecute any alcohol or drug abuse patient.[facility] HospitalIn the event this information is protected by the Federal Confidentiality of Alcohol and Drug Abuse Patient Records regulations: The Federal rules restrict any use of the information to criminally investigate or prosecute any alcohol or drug abuse patient.[facility] HospitalIn the event this information is protected by the Federal Confidentiality of Alcohol and Drug Abuse Patient Records regulations: The Federal rules restrict any use of the information to criminally investigate or prosecute any alcohol or drug abuse patient.[facility] HospitalIn the event this information is protected by the Federal Confidentiality of Alcohol and Drug Abuse Patient Records regulations: The Federal rules restrict any use of the information to criminally investigate or prosecute any alcohol or drug abuse patient.[facility] HospitalIn the event this information is protected by the Federal Confidentiality of Alcohol and Drug Abuse Patient Records regulations: The Federal rules restrict any use of the information to criminally investigate or prosecute any alcohol or drug abuse patient.[facility] HospitalIn the event this information is protected by the Federal Confidentiality of Alcohol and Drug Abuse Patient Records regulations: The Federal rules restrict any use of the information to criminally investigate or prosecute any alcohol or drug abuse patient.[facility] HospitalIn the event this information is protected by the Federal Confidentiality of Alcohol and Drug Abuse Patient Records regulations: The Federal rules restrict any use of the information to criminally investigate or prosecute any alcohol or drug abuse patient.[facility] HospitalIn the event this information is protected by the Federal Confidentiality of Alcohol and Drug Abuse Patient Records regulations: The Federal rules restrict any use of the information to criminally investigate or prosecute any alcohol or drug abuse patient.[facility] HospitalIn the event this information is protected by the Federal Confidentiality of Alcohol and Drug Abuse Patient Records regulations: The Federal rules restrict any use of the information to criminally investigate or prosecute any alcohol or drug abuse patient.[facility] HospitalIn the event this information is protected by the Federal Confidentiality of Alcohol and Drug Abuse Patient Records regulations: The Federal rules restrict any use of the information to criminally investigate or prosecute any alcohol or drug abuse patient.[facility] HospitalIn the event this information is protected by the Federal Confidentiality of Alcohol and Drug Abuse Patient Records regulations: The Federal rules restrict any use of the information to criminally investigate or prosecute any alcohol or drug abuse patient.[facility] HospitalIn the event this information is protected by the Federal Confidentiality of Alcohol and Drug Abuse Patient Records regulations: The Federal rules restrict any use of the information to criminally investigate or prosecute any alcohol or drug abuse patient.[facility] HospitalIn the event this information is protected by the Federal Confidentiality of Alcohol and Drug Abuse Patient Records regulations: The Federal rules restrict any use of the information to criminally investigate or prosecute any alcohol or drug abuse patient.[facility] HospitalIn the event this information is protected by the Federal Confidentiality of Alcohol and Drug Abuse Patient Records regulations: The Federal rules restrict any use of the information to criminally investigate or prosecute any alcohol or drug abuse patient.[facility] HospitalIn the event this information is protected by the Federal Confidentiality of Alcohol and Drug Abuse Patient Records regulations: The Federal rules restrict any use of the information to criminally investigate or prosecute any alcohol or drug abuse patient.[facility] HospitalIn the event this information is protected by the Federal Confidentiality of Alcohol and Drug Abuse Patient Records regulations: The Federal rules restrict any use of the information to criminally investigate or prosecute any alcohol or drug abuse patient.[facility] HospitalIn the event this information is protected by the Federal Confidentiality of Alcohol and Drug Abuse Patient Records regulations: The Federal rules restrict any use of the information to criminally investigate or prosecute any alcohol or drug abuse patient.[facility] HospitalIn the event this information is protected by the Federal Confidentiality of Alcohol and Drug Abuse Patient Records regulations: The Federal rules restrict any use of the information to criminally investigate or prosecute any alcohol or drug abuse patient.[facility] HospitalIn the event this information is protected by the Federal Confidentiality of Alcohol and Drug Abuse Patient Records regulations: The Federal rules restrict any use of the information to criminally investigate or prosecute any alcohol or drug abuse patient.[facility] HospitalIn the event this information is protected by the Federal Confidentiality of Alcohol and Drug Abuse Patient Records regulations: The Federal rules restrict any use of the information to criminally investigate or prosecute any alcohol or drug abuse patient.[facility] HospitalIn the event this information is protected by the Federal Confidentiality of Alcohol and Drug Abuse Patient Records regulations: The Federal rules restrict any use of the information to criminally investigate or prosecute any alcohol or drug abuse patient.[facility] HospitalIn the event this information is protected by the Federal Confidentiality of Alcohol and Drug Abuse Patient Records regulations: The Federal rules restrict any use of the information to criminally investigate or prosecute any alcohol or drug abuse patient.[facility] HospitalIn the event this information is protected by the Federal Confidentiality of Alcohol and Drug Abuse Patient Records regulations: The Federal rules restrict any use of the information to criminally investigate or prosecute any alcohol or drug abuse patient.[facility] HospitalIn the event this information is protected by the Federal Confidentiality of Alcohol and Drug Abuse Patient Records regulations: The Federal rules restrict any use of the information to criminally investigate or prosecute any alcohol or drug abuse patient.[facility] HospitalIn the event this information is protected by the Federal Confidentiality of Alcohol and Drug Abuse Patient Records regulations: The Federal rules restrict any use of the information to criminally investigate or prosecute any alcohol or drug abuse patient.[facility] HospitalIn the event this information is protected by the Federal Confidentiality of Alcohol and Drug Abuse Patient Records regulations: The Federal rules restrict any use of the information to criminally investigate or prosecute any alcohol or drug abuse patient.[facility] HospitalIn the event this information is protected by the Federal Confidentiality of Alcohol and Drug Abuse Patient Records regulations: The Federal rules restrict any use of the information to criminally investigate or prosecute any alcohol or drug abuse patient.[facility] HospitalIn the event this information is protected by the Federal Confidentiality of Alcohol and Drug Abuse Patient Records regulations: The Federal rules restrict any use of the information to criminally investigate or prosecute any alcohol or drug abuse patient.[facility] HospitalIn the event this information is protected by the Federal Confidentiality of Alcohol and Drug Abuse Patient Records regulations: The Federal rules restrict any use of the information to criminally investigate or prosecute any alcohol or drug abuse patient.[facility] HospitalIn the event this information is protected by the Federal Confidentiality of Alcohol and Drug Abuse Patient Records regulations: The Federal rules restrict any use of the information to criminally investigate or prosecute any alcohol or drug abuse patient.[facility] HospitalIn the event this information is protected by the Federal Confidentiality of Alcohol and Drug Abuse Patient Records regulations: The Federal rules restrict any use of the information to criminally investigate or prosecute any alcohol or drug abuse patient.[facility] HospitalIn the event this information is protected by the Federal Confidentiality of Alcohol and Drug Abuse Patient Records regulations: The Federal rules restrict any use of the information to criminally investigate or prosecute any alcohol or drug abuse patient.[facility] the event this information is protected by the Federal Confidentiality of Alcohol and Drug Abuse Patient Records regulations: The Federal rules restrict any use of the information to criminally investigate or prosecute any alcohol or drug abuse patient.[facility] HospitalIn the event this information is protected by the Federal Confidentiality of Alcohol and Drug Abuse Patient Records regulations: The Federal rules restrict any use of the information to criminally investigate or prosecute any alcohol or drug abuse patient.[facility] HospitalIn the event this information is protected by the Federal Confidentiality of Alcohol and Drug Abuse Patient Records regulations: The Federal rules restrict any use of the information to criminally investigate or prosecute any alcohol or drug abuse patient.[facility]In the event this information is protected by the Federal Confidentiality of Alcohol and Drug Abuse Patient Records regulations: The Federal rules restrict any use of the information to criminally investigate or prosecute any alcohol or drug abuse patient.[facility] HospitalIn the event this information is protected by the Federal Confidentiality of Alcohol and Drug Abuse Patient Records regulations: The Federal rules restrict any use of the information to criminally investigate or prosecute any alcohol or drug abuse patient.[facility] HospitalIn the event this information is protected by the Federal Confidentiality of Alcohol and Drug Abuse Patient Records regulations: The Federal rules restrict any use of the information to criminally investigate or prosecute any alcohol or drug abuse patient.[facility] HospitalIn the event this information is protected by the Federal Confidentiality of Alcohol and Drug Abuse Patient Records regulations: The Federal rules restrict any use of the information to criminally investigate or prosecute any alcohol or drug abuse patient.[facility] HospitalIn the event this information is protected by the Federal Confidentiality of Alcohol and Drug Abuse Patient Records regulations: The Federal rules restrict any use of the information to criminally investigate or prosecute any alcohol or drug abuse patient.[facility] HospitalIn the event this information is protected by the Federal Confidentiality of Alcohol and Drug Abuse Patient Records regulations: The Federal rules restrict any use of the information to criminally investigate or prosecute any alcohol or drug abuse patient.[facility] HospitalIn the event this information is protected by the Federal Confidentiality of Alcohol and Drug Abuse Patient Records regulations: The Federal rules restrict any use of the information to criminally investigate or prosecute any alcohol or drug abuse patient.[facility] HospitalIn the event this information is protected by the Federal Confidentiality of Alcohol and Drug Abuse Patient Records regulations: The Federal rules restrict any use of the information to criminally investigate or prosecute any alcohol or drug abuse patient.[facility] HospitalIn the event this information is protected by the Federal Confidentiality of Alcohol and Drug Abuse Patient Records regulations: The Federal rules restrict any use of the information to criminally investigate or prosecute any alcohol or drug abuse patient.[facility] HospitalIn the event this information is protected by the Federal Confidentiality of Alcohol and Drug Abuse Patient Records regulations: The Federal rules restrict any use of the information to criminally investigate or prosecute any alcohol or drug abuse patient.[facility] HospitalIn the event this information is protected by the Federal Confidentiality of Alcohol and Drug Abuse Patient Records regulations: The Federal rules restrict any use of the information to criminally investigate or prosecute any alcohol or drug abuse patient.[facility] HospitalIn the event this information is protected by the Federal Confidentiality of Alcohol and Drug Abuse Patient Records regulations: The Federal rules restrict any use of the information to criminally investigate or prosecute any alcohol or drug abuse patient.[facility] HospitalIn the event this information is protected by the Federal Confidentiality of Alcohol and Drug Abuse Patient Records regulations: The Federal rules restrict any use of the information to criminally investigate or prosecute any alcohol or drug abuse patient.[facility] HospitalIn the event this information is protected by the Federal Confidentiality of Alcohol and Drug Abuse Patient Records regulations: The Federal rules restrict any use of the information to criminally investigate or prosecute any alcohol or drug abuse patient.[facility] HospitalIn the event this information is protected by the Federal Confidentiality of Alcohol and Drug Abuse Patient Records regulations: The Federal rules restrict any use of the information to criminally investigate or prosecute any alcohol or drug abuse patient.[facility] Reason for Visit (unrecogniz ed section and content) Reason Comments Follow Up 6 month Reason Onset Date Comments Refill Request 06/23/2021 Reason Comments Refill Request Reason Comments Prescription Refills Reason Comments Established Patient Follow Up nail care Reason Onset Date Comments Refill Request 09/09/2021 Reason Onset Date Comments Refill Request 09/16/2021 Reason Onset Date Comments Refill Request 10/27/2021 Reason Comments Established Patient Follow Up Diabetic Foot Care Reason Onset Date Comments Follow Up 6 month Immunizations 12/19/2021 Flu vaccination Reason Comments Results Reason Onset Date Comments Refill Request 12/24/2021 Reason Comments Orders Reason Comments Appointment Orders Reason Comments UTI C/O urgency, frequen cy, burning and pain with urination x 2 weeks. Reason Comments Established Patient Follow Up Diabetic Foot Check Reason Onset Date Comments Refill Request 06/01/2022 Reason Comments Patient Request Reason Onset Date Comments Refill Request 06/15/2022 Reason Comments Follow Up 6 month follow up Reason Onset Date Comments Refill Request 07/13/2022 Reason Onset Date Comments Refill Request 08/13/2022 Reason Comments Established Patient Diabetic Foot Care Reason Onset Date Comments Refill Request 09/07/2022 Reason Comments Recheck 3 month diabetes fol low up Reason Onset Date Comments Refill Request 10/12/2022 Reason Comments Follow Up 6 month- does want F roman and Covid today. Reason Comments Shortness of Breath Reason Onset Date Comments Transition Of Care 02/09/2023 TCM Pharmacy- Hospital discharge 02/08/23 Reason Comments Appointment Reason Onset Date Comments Transition Of Care 02/16/[address] [facility] Discharge 02/08/23 Reason Comments Transition Of Care Patient reports occa sional DUNLAP that tylenol helps with Reason Comments Established Patient Specialty Diagnoses / Procedures Referred By Contac t Referred To Contact CT IMAGING Diagnoses Nontraumatic subarachnoid hemorrhage (HCC) Procedures CT BRAIN WO IVCON CT HEAD/BRAIN W/O CONTRAST MATERIAL Laurita Cintron PA-C [address] [place] [address] [place] [address] Referral ID Status Reason Start Date Expiration Date V isits Requested Visits Authorized [id number] Closed Auto-Generate d Referral 02/07/2023 03/08/2024 1 1 Reason Onset Date Comments Transition Of Care 02/22/[address] [facility] Discharge 02/08/23 Reason Onset Date Comments Refill Request 05/24/2023 Reason Onset Date Comments Refill Request 06/21/2023 Reason Comments Established Patient Follow Up nail care4 nail care Reason Comments 3 mo follow up Reason Onset Date Comments Refill Request 08/04/2023 Reason Onset Date Comments Refill Request 08/16/2023 Reason Onset Date Comments Refill Request 09/06/2023 Reason Comments Follow Up 3 month follow up- h eart doctor increased lasix to 80 mg for 5 days only then baack to 40 mg per [facility] Reason Comments Pharmacy Call Reason Onset Date Comments Refill Request 11/01/2023 Reason Onset Date Comments Refill Request 11/22/2023 Reason Onset Date Comments Refill Request 12/14/2023 Reason Comments Follow Up 3 month- labs and ch est xray Reason Comments Results Reason Onset Date Comments Refill Request 01/31/2024 Reason Onset Date Comments Refill Request 02/15/2024 Reason Onset Date Comments Refill Request 02/21/2024 Reason Onset Date Comments Refill Request 03/03/2024 Reason Onset Date Comments Refill Request 03/13/2024 Reason Comments Follow Up 3 month Reason Onset Date Comments Refill Request 05/01/2024 Reason Onset Date Comments Population Health Navigation Outreach 05/30/2024 ACO- HIGH RISK- ATTEMPT 1 Reason Onset Date Comments Refill Request 06/02/2024 Reason Onset Date Comments 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 - Chronic Care 06/27/2024 cdm - follow up Reason Comments abnormal mini cog follow up Reason Onset Date Comments Refill Request 08/21/2024 Reason Comments blood sugar readings Reason Onset Date Comments Refill Request 08/15/2024 Reason Onset Date Comments Refill Request 09/04/2024 Reason Comments Nail Care Reason Comments Follow Up Reason Comments Patient Update Reason Onset Date Comments Results 09/28/2024 Reason Comments blood pressure readings, blood sugars Reason Comments Recheck BP follow up, fatigu e Reason Comments blood pressure and blood sugar readings Reason Comments Blood Sugar Elevation Care Teams (unrecognized sec tion and content) Folding Machine Setter Relationship Specialty Start Date End Date Frank Fuentes MD [address] [place], [place] [id number] PCP - General Family Practice 04/06/17 Jackson Davenport [address] [place], [place] [id number] Physician Cardiology 07/19/18 Folding Machine Setter Relationship Specialty Start Date End Date Frank Fuentes MD [address] [place] [address] PCP - General Family Practice 04/06/17 Issac, Jackson S [address] [place] [address] Physician Cardiology 07/19/18 Folding Machine Setter Relationship Specialty Start Date End Date Frank Fuentes MD [address] [place] [address] PCP - General Family Practice 04/06/17 Issac, Jackson S [address] [place] [address] Physician Cardiology 07/19/18 Folding Machine Setter Relationship Specialty Start Date End Date Frakn Fuentes MD [address] [place] [address] PCP - General Family Practice 04/06/17 Issac, Jackson S [address] [place] [address] Physician Cardiology 07/19/18 Folding Machine Setter Relationship Specialty Start Date End Date Frank Fuentes MD [address] [place] [address] PCP - General Family Practice 04/06/17 Issac, Des Allemands S [address] [place] [address] Physician Cardiology 07/19/18 Folding Machine Setter Relationship Specialty Start Date End Date Frank Fuentes MD [address] [place] [address] PCP - General Family Practice 04/06/17 Issac, Des Allemands S [address] [place] [address] Physician Cardiology 07/19/18 Folding Machine Setter Relationship Specialty Start Date End Date Frank Fuentes MD [address] [place] [address] PCP - General Family Medicine 04/06/17 Issac, Jackson S [address] [place] [address] Physician Cardiology 07/19/18 Folding Machine Setter Relationship Specialty Start Date End Date Frank Fuentes MD [address] [place] [address] PCP - General Family Medicine 04/06/17 Issac, Jackson S [address] [place] [address] Physician Cardiology 07/19/18 Folding Machine Setter Relationship Specialty Start Date End Date Frank Fuentes MD [address] [place] [address] PCP - General Family Medicine 04/06/17 Issac, Des Allemands S [address] [place] [address] Physician Cardiology 07/19/18 Folding Machine Setter Relationship Specialty Start Date End Date Frank Fuentes MD [address] [place] [address] PCP - General Family Medicine 04/06/17 Issac, Jackson S [address] [place] [address] Physician Cardiology 07/19/18 Folding Machine Setter Relationship Specialty Start Date End Date Frank Fuentes MD [address] [place] [address] PCP - General Family Medicine 04/06/17 Issac, Jackson S [address] [place] [address] Physician Cardiology 07/19/18 Folding Machine Setter Relationship Specialty Start Date End Date Frank Fuentes MD [address] [place] [address] PCP - General Family Medicine 04/06/17 Issac, Des Allemands S [address] [place] [address] Physician Cardiology 07/19/18 Folding Machine Setter Relationship Specialty Start Date End Date Frank Fuentes MD [address] [place] [address] PCP - General Family Medicine 04/06/17 Issac, Des Allemands S [address] [place] [address] Physician Cardiology 07/19/18 Team Status: Active Member Role Status Dates Dr. Koko Fuentes MD Family Provider Active Dr. Koko Fuentes MD Primary Care Provider Acti ve Team Status: Inactive Member Role Status Dates Dr. Koko Fuentes MD Primary Care Provider Acti ve Dr. Safia Montgomery , Attending Provider, Referring Estuardo nicolas Active Team Status: Inactive Member Role Status Dates Dr. Koko Fuentes MD Primary Care Provider Acti ve Dr. Safia Montgomery , Attending Provider Active Folding Machine Setter Relationship Specialty Start Date End Date Frank Fuentes MD [address] [place] [address] PCP - General Family Medicine 04/06/17 Issac, Des Allemands S [address] [place] [address] Physician Cardiology 07/19/18 Folding Machine Setter Relationship Specialty Start Date End Date Frank Fuentes MD [address] [place] [address] PCP - General Family Medicine 04/06/17 Issac, Des Allemands S [address] [place] [address] Physician Cardiology 07/19/18 Folding Machine Setter Relationship Specialty Start Date End Date Frank Fuentes MD [address] [place] [address] PCP - General Family Medicine 04/06/17 Issac, Jackson S [address] [place] [address] Physician Cardiology 07/19/18 Folding Machine Setter Relationship Specialty Start Date End Date Frank Fuentes MD [address] [place] [address] PCP - General Family Medicine 04/06/17 Issac, Jackson S [address] [place] [address] Physician Cardiology 07/19/18 Folding Machine Setter Relationship Specialty Start Date End Date Frank Fuentes MD [address] [place] [address] PCP - General Family Medicine 04/06/17 Issac, Des Allemands S [address] [place] [address] Physician Cardiology 07/19/18 Folding Machine Setter Relationship Specialty Start Date End Date Frank Fuentes MD [address] [place] [address] PCP - General Family Medicine 04/06/17 Issac, Des Allemands S [address] [place] [address] Physician Cardiology 07/19/18 Folding Machine Setter Relationship Specialty Start Date End Date Frank Fuentes MD [address] [place] [address] PCP - General Family Medicine 04/06/17 Jackson Davenport [address] [address] Physician Cardiology 07/19/18 Folding Machine Setter Relationship Specialty Start Date End Date Frank Fuentes MD [address] [place] [address] PCP - General Family Medicine 04/06/17 Jackson Davenport MD [address] [address] Physician Cardiology 07/19/18 Folding Machine Setter Relationship Specialty Start Date End Date Frank Fuentes MD [address] [place] [address] PCP - General Family Medicine 04/06/17 aJckson Davenport MD [address] [address] Physician Cardiology 07/19/18 Folding Machine Setter Relationship Specialty Start Date End Date Frank Fuentes MD [address] [place] [address] PCP - General Family Medicine 04/06/17 Jackson Davenport MD [address] [address] Physician Cardiology 07/19/18 Folding Machine Setter Relationship Specialty Start Date End Date Frank Fuentes MD [address] [place] [address] PCP - General Family Medicine 04/06/17 Jackson Davenport MD [address] [address] Physician Cardiology 07/19/18 Team Status: Inactive Member Role Status Dates Dr. Koko Fuentes MD Primary Care Provider, Ref erring Provider Active Dorothy Cody PRESS BOX CUSTODIAN, PRESS BOX CUSTODIAN-C Attending Provider Active Team Status: Active Member Role Status Dates Dr. Koko Fuentes MD Primary Care Provider Acti ve Dr. Vimal Bang , DO Emergency Provider Active Dr. Joceline Montgomery , DO Admit Provider, Attending Provide r Active Folding Machine Setter Relationship Specialty Start Date End Date Frank Fuentes MD [address] [place] [address] PCP - General Family Medicine 04/06/17 Jackson Davenport MD [address] [address] Physician Cardiology 07/19/18 Team Status: Active Member Role Status Dates Dr. Koko Fuentes MD Primary Care Provider Acti ve Dr. Vimal Bang , DO Emergency Provider Active Dr. Joceline Montgomery , DO Admit Provider, Att ending Provider, Other Provider Active Team Status: Active Member Role Status Dates Dr. Koko Fuentes MD Primary Care Provider Acti ve Dr. Vimal Bang , DO Emergency Provider Active Dr. Joceline Montgomery , DO Admit Provider, Other Provider Ac tive Dr. Kyle Culver , DO Attending Provider, Other Provider Active Dr. Shahnaz Reeves MD Other Provider Active Team Status: Active Member Role Status Dates Dr. Koko Fuentes MD Primary Care Provider Acti ve Dr. Shahnaz Reeves MD Attending Provider Active Team Status: Inactive Member Role Status Dates Dr. Koko Fuentes MD Primary Care Provider Acti ve Dr. Vimal Bang , Emergency Provider Active Dr. Joceline Montgomery , DO Admit Provider, Other Provider Ac tive Dr. Kyle Culver , DO Attending Provider Active Dr. Shahnaz Reeves MD Other Provider Active Folding Machine Setter Relationship Specialty Start Date End Date Frank Fuentes MD [address] [place], [place] [address]211 PCP - General Family Medicine 04/06/17 Jackson Davenport MD [address] [address] Physician Cardiology 07/19/18 Folding Machine Setter Relationship Specialty Start Date End Date Frank Fuentes MD [address] [place], [place] [id number] PCP - General Family Medicine 04/06/17 Jackson Davenport MD [address] [address] Physician Cardiology 07/19/18 Sarah Hawkins [facility] [address] [place] [address] Transitional Care Pharmacist Pharmacy 02/09/23 03/11/23 Brittany Mayo, MARIVEL [address] [place] [address] Primary Care Manager Social Work Internal Medicine 02/09/23 03/11/23 Folding Machine Setter Relationship Specialty Start Date End Date Frank Fuentes MD [address] [place] [address] PCP - General Family Medicine 04/06/17 Jackson Davenport MD [address] [address] Physician Cardiology 07/19/18 Sarah Hawkins [facility] [address] [facility] [place] [address] Transitional Care Pharmacist Pharmacy 02/09/23 03/11/23 Brittany Mayo, MARIVEL [address] [place] [address] Primary Care Manager Social Work Internal Medicine 02/09/23 03/11/23 Folding Machine Setter Relationship Specialty Start Date End Date Frank Fuentes MD [address] [place] [address] PCP - General Family Medicine 04/06/17 Jackson Davenport MD [address] [address] Physician Cardiology 07/19/18 Sarah Hawkins [facility] [address] [facility] [place] [address] Transitional Care Pharmacist Pharmacy 02/09/23 03/11/23 Brittany Mayo RN [address] [place] [address] Primary Care Manager Social Work Internal Medicine 02/09/23 03/11/23 Folding Machine Setter Relationship Specialty Start Date End Date Frank Fuentes MD [address] [place] [address] PCP - General Family Medicine 04/06/17 Jcakson Davenport MD [address] [place] [address] Physician Cardiology 07/19/18 Sarah Hawkins [facility] [address] [place] [address] Transitional Care Pharmacist Pharmacy 02/09/23 03/11/23 Brittany Mayo, MARIVEL [address] [place] [address] Primary Care Manager Social Work Internal Medicine 02/09/23 03/11/23 Folding Machine Setter Relationship Specialty Start Date End Date Frank Fuentes MD [address] [place] [address] PCP - General Family Medicine 04/06/17 Jackson Davenport MD [address] [address] Physician Cardiology 07/19/18 [facility] [address] [place] [address] Transitional Care Pharmacist Pharmacy 02/09/23 03/11/23 Brittany Mayo RN [address] [place] [address] Primary Care Manager Social Work Internal Medicine 02/09/23 03/11/23 Folding Machine Setter Relationship Specialty Start Date End Date Frank Fuentes MD [address] [place] [address] PCP - General Family Medicine 04/06/17 Jackson Davenport MD [address] [address] Physician Cardiology 07/19/18 Sarah Hawkins [facility] [address] [facility] [place] [address] Transitional Care Pharmacist Pharmacy 02/09/23 03/11/23 Brittany Mayo RN [address] [facility] [place] [address] Primary Care Manager Social Work Internal Medicine 02/09/23 03/11/23 Folding Machine Setter Relationship Specialty Start Date End Date Frank Fuentes MD [address] [place], [place] [address]111 PCP - General Family Medicine 04/06/17 Jackson Davenport MD [address] [address] Physician Cardiology 07/19/18 Sarah Hawkins [facility] [address] [facility] [place] [address] Transitional Care Pharmacist Pharmacy 02/09/23 03/11/23 Brittany Mayo RN [address] [place] [address] Primary Care Manager Social Work Internal Medicine 02/09/23 03/11/23 Folding Machine Setter Relationship Specialty Start Date End Date Frank Fuentes MD [address] [place], [place] [phone] PCP - General Family Medicine 04/06/17 Jackson Davenport MD [address] [address]- Physician Cardiology 07/19/18 Folding Machine Setter Relationship Specialty Start Date End Date Frank Fuentes MD [address] [place] [address] PCP - General Family Medicine 04/06/17 Jackson Davenport MD [address] [address] Physician Cardiology 07/19/18 Folding Machine Setter Relationship Specialty Start Date End Date Frank Fuentes MD [address] [place] [address] PCP - General Family Medicine 04/06/17 Jackson Davenport MD [address] [address] Physician Cardiology 07/19/18 Folding Machine Setter Relationship Specialty Start Date End Date Frank Fuentes MD [address] [place] [address] PCP - General Family Medicine 04/06/17 Jackson Davenport MD [address] [address] Physician Cardiology 07/19/18 Folding Machine Setter Relationship Specialty Start Date End Date Frank Fuentes MD [address] [place] [address] PCP - General Family Medicine 04/06/17 Jackson Davenport MD [address] [address] Physician Cardiology 07/19/18 Folding Machine Setter Relationship Specialty Start Date End Date Frank Fuentes MD [address] [place] [address] PCP - General Family Medicine 04/06/17 Jackson Davenport MD [address] [place] [address] Physician Cardiology 07/19/18 Folding Machine Setter Relationship Specialty Start Date End Date Frank Fuentes MD [address] [place] [address] PCP - General Family Medicine 04/06/17 Jackson Davenport MD [address] [address] Physician Cardiology 07/19/18 Folding Machine Setter Relationship Specialty Start Date End Date Frank Fuentes MD [address] [place] [address] PCP - General Family Medicine 04/06/17 Jackson Davenport MD [address] [address] Physician Cardiology 07/19/18 Folding Machine Setter Relationship Specialty Start Date End Date Frank Fuentes MD [address] [place] [address] PCP - General Family Medicine 04/06/17 Jackson Davenport MD [address] [address] Physician Cardiology 07/19/18 Folding Machine Setter Relationship Specialty Start Date End Date Frank Fuentes MD [address] [place], [place] 399773 [phone] PCP - General Family Medicine 04/06/17 Jackson Davenport MD [address] [facility] [address] [id number]- Physician Cardiology 07/19/18 Folding Machine Setter Relationship Specialty Start Date End Date Frank Fuentes MD [address] [place], [place] 660890 [phone] PCP - General Family Medicine 04/06/17 Jackson Davenport MD [address] 7[address] Physician Cardiology 07/19/18 Folding Machine Setter Relationship Specialty Start Date End Date Frank Fuentes MD [address] [place], [place] 201791 PCP - General Family Medicine 04/06/17 Jackson Davenport MD [address] 5713[address] Physician Cardiology 07/19/18 Sarah Hawkins [facility] [address] [place] [address] Transitional Care Pharmacist Pharmacy 02/09/23 03/11/23 Brittany Mayo, MARIVEL [address] [place] [address] Primary Care Manager Social Work Internal Medicine 02/09/23 03/11/23 Folding Machine Setter Relationship Specialty Start Date End Date Frank Fuentes MD [address] [place] [address] PCP - General Family Medicine 04/06/17 Jackson Davenport MD [address] [address] Physician Cardiology 07/19/18 Folding Machine Setter Relationship Specialty Start Date End Date Frank Fuentes MD [address] [place] [address] PCP - General Family Medicine 04/06/17 Jackson Davenport MD [address] [address] Physician Cardiology 07/19/18 Folding Machine Setter Relationship Specialty Start Date End Date Frank Fuentes MD [address] [place] [address] PCP - General Family Medicine 04/06/17 Jackson Davenport MD [address] [address] Physician Cardiology 07/19/18 Folding Machine Setter Relationship Specialty Start Date End Date Frank Fuentes MD [address] [place] [address] PCP - General Family Medicine 04/06/17 Jackson Davenport MD [address] [address] Physician Cardiology 07/19/18 Sarah Cormier APRN.CNP [address] [place] [address] Cloud Systems Architect Family Medicine 02/19/24 Folding Machine Setter Relationship Specialty Start Date End Date Frank Fuentes MD [address] [place] [address] PCP - General Family Medicine 04/06/17 Jackson Davenport MD [address] [place] [address] Physician Cardiology 07/19/18 Podlogar, KYRA SmithN.CAR REFINISHER [address] [place] [address] Cloud Systems Architect Family Medicine 02/19/24 Folding Machine Setter Relationship Specialty Start Date End Date Frank Fuentes MD [address] [place] [address] PCP - General Family Medicine 04/06/17 Jackson Davenport MD [address] [place] [address], [place] [address] Physician Cardiology 07/19/18 Podlogar, Sarah, AIRCRAFT HYDRAULIC EQUIPMENT MECHANIC.CAR REFINISHER [address] [facility] [place] [address] Cloud Systems Architect Family Medicine 02/19/24 Folding Machine Setter Relationship Specialty Start Date End Date Frank Fuentes MD [address] [facility] [place] [address] PCP - General Family Medicine 04/06/17 Jackson Davenport MD [address] [place] [address] Physician Cardiology 07/19/18 Podlogar, WILMA Smith.CAR REFINISHER [address] [facility] [address] Cloud Systems Architect Family Medicine 02/19/24 Folding Machine Setter Relationship Specialty Start Date End Date Frank Fuentes MD [address] [facility] [address] PCP - General Family Medicine 04/06/17 Jackson Davenport MD [address] [place] [address] Physician Cardiology 07/19/18 Podlogar, WILMA Smith.CAR REFINISHER [address] [place] [address] [facility] Medicine 02/19/24 Folding Machine Setter Relationship Specialty Start Date End Date Frank Fuentes MD [address] [place] [address] PCP - General Family Medicine 04/06/17 Jackson Davenport MD [address] [place] [address] Physician Cardiology 07/19/18 Podlogar, Sarah, AIRCRAFT HYDRAULIC EQUIPMENT MECHANIC.CAR REFINISHER [address] [place] [address] [facility] Family Medicine 02/19/24 Folding Machine Setter Relationship Specialty Start Date End Date Frank Fuentes MD [address] [place] [address] PCP - General Family Medicine 04/06/17 Jackson Davenport MD [address] [facility] [address] [place] [address] Physician Cardiology 07/19/18 Podlogar, WILMA Smith.CAR REFINISHER [address] [facility] [address] Cloud Systems Architect Family Medicine 02/19/24 Folding Machine Setter Relationship Specialty Start Date End Date Frank Fuentes MD [address] [facility] [address] PCP - General Family Medicine 04/06/17 Jackson Davenport MD [address] [facility] [address] [place] [address] Physician Cardiology 07/19/18 PodlogarSarah, AIRCRAFT HYDRAULIC EQUIPMENT MECHANIC.CAR REFINISHER [address] [facility] [address] Cloud Systems Architect Family Medicine 02/19/24 Raquel Alvarez APRN.CAR REFINISHER [address] [place] [address] Cloud Systems Architect Family Medicine 05/26/24 Folding Machine Setter Relationship Specialty Start Date End Date Frank Fuentes MD [address] [facility] [address] PCP - General Family Medicine 04/06/17 Jackson Davenport MD [address] [facility] [address] [place] [address] Physician Cardiology 07/19/18 PodlogarSarah AIRCRAFT HYDRAULIC EQUIPMENT MECHANIC.CAR REFINISHER [address] [place] [address] [facility] 02/19/24 Raquel Alvarez APRN.CAR REFINISHER [address] [place] [address] [facility] 05/26/24 Folding Machine Setter Relationship Specialty Start Date End Date Frank Fuentes MD [address] [place] [address] PCP - General Family Medicine 04/06/17 Jackson Davenport MD [address] [address] Physician Cardiology 07/19/18 PodlogarSarah APRN.CAR REFINISHER [address] [place] [address] [facility] 02/19/24 Raquel Alvarez APRN.CAR REFINISHER [address] [place] [address] [facility] 06/05/24 Folding Machine Setter Relationship Specialty Start Date End Date Frank Fuentes MD [address] [place] [address] PCP - General Family Medicine 04/06/17 Jackson Davenport MD [address] [address] Physician Cardiology 07/19/18 PodlogarSarah APRN.CAR REFINISHER [address] [place] [address] Cloud Systems Architect Family [facility] 02/19/24 Raquel Alvarez AIRCRAFT HYDRAULIC EQUIPMENT MECHANIC.CAR REFINISHER [address] [place] [address] Cloud Systems Architect Family [facility] 06/05/24 Cesar Crouch RN [address] [place] [address] Collection Card Clerk 06/09/24 Folding Machine Setter Relationship Specialty Start Date End Date Frank Fuentes MD [address] [place] [address] PCP - General Family Medicine 04/06/17 Jackson Davenport MD [address] [address] Physician Cardiology 07/19/18 PodlogarSarah AIRCRAFT HYDRAULIC EQUIPMENT MECHANIC.CAR REFINISHER [address] [place] [address] [facility] Family [facility] 02/19/24 Raquel Alvarez, AIRCRAFT HYDRAULIC EQUIPMENT MECHANIC.CAR REFINISHER [address] [place] [address] Cloud Systems Architect Family [facility] 06/05/24 Cesar Coruch RN [address] [place] [address] Collection Card Clerk 06/09/24 Folding Machine Setter Relationship Specialty Start Date End Date Frank Fuentes MD [address] [place] [address] PCP - General Family Medicine 04/06/17 Jackson Davenport MD [address] [address] Physician Cardiology 07/19/18 Podlogar, Sarah, AIRCRAFT HYDRAULIC EQUIPMENT MECHANIC.CAR REFINISHER [address] [facility] [address] [facility] Family [facility] 02/19/24 Raquel Alvarez AIRCRAFT HYDRAULIC EQUIPMENT MECHANIC.CAR REFINISHER [address] [place] [address] [facility] 06/05/24 Cesar Crouch, MARIVEL [address] [place], [place] [id number] Collection Card Clerk 06/09/24 Folding Machine Setter Relationship Specialty Start Date End Date Frank Fuentes MD [address] [facility] [address] PCP - General Family Medicine 04/06/17 Jackson Davenport MD [address] [place] [address] Physician Cardiology 07/19/18 Podlogar, Sarah AIRCRAFT HYDRAULIC EQUIPMENT MECHANIC.CAR REFINISHER [address] [facility] [address] [facility] 02/19/24 Cesar Crouch RN [address] [place], [place] [id number] Collection Card Clerk 06/09/24 Folding Machine Setter Relationship Specialty Start Date End Date Frank Fuentes MD [address] [facility] [address] PCP - General Family Medicine 04/06/17 Jackson Davenport MD [address] [place] [address] Physician Cardiology 07/19/18 Podlogar, Sarah, AIRCRAFT HYDRAULIC EQUIPMENT MECHANIC.CAR REFINISHER [address] [place] [address] [facility] 02/19/24 Cesar Crouch, RN [address] [place] [address] Collection Card Clerk 06/09/24 Folding Machine Setter Relationship Specialty Start Date End Date Frank Fuentes MD [address] [place], [place] [address]689[address] PCP - General Family Medicine 04/06/17 Jackson Davenport MD [address] [address] Physician Cardiology 07/19/18 Podlogar, Sarah, AIRCRAFT HYDRAULIC EQUIPMENT MECHANIC.CAR REFINISHER [address] [place] [address] [facility] 02/19/24 Cesar Crouch, MARIVEL [address] [place] [address] Collection Card Clerk 06/09/24 Team Status: Active Member Role Status Dates Dr. Koko Fuentes MD Primary Care Provider Acti ve Team Status: Inactive Member Role Status Dates Dr. Koko Fuentes MD Primary Care Provider Acti ve Start: April 27, 2024 End: April 27, 2024 Dr. Koko Fuentes MD Referring Provider Active Start: April 27, 2024 End: April 27, 2024 David Walter PRESS BOX CUSTODIAN, PRESS BOX CUSTODIAN-C Attending Provider Active S tart: April 27, 2024 End: April 27, 2024 Team Status: Inactive Member Role Status Dates Dr. Koko Fuentes MD Primary Care Provider Acti ve Start: August 21, 2024 End: August 21, 2024 Dr. Safia Montgomery , Attending Provider Active Start: August 21, 2024 End: August 21, 2024 Dr. Safia Montgomery DO Referring Provider Active Start: August 21, 2024 End: August 21, 2024 Folding Machine Setter Relationship Specialty Start Date End Date Frank Fuentes MD [address] [place] [address] PCP - General Family Medicine 04/06/17 Jackson Davenport MD [address] [address] Physician Cardiology 07/19/18 PodlogarSarah APRN.CAR REFINISHER [address] [place] [address] Cloud Systems Architect Family [facility] 02/19/24 Cesar Crouch, MARIVEL [address] [place] [address] Collection Card Clerk 06/09/24 Raquel Alvarez APRN.CAR REFINISHER [address] [place] [address] Cloud Systems Architect Family Medicine 08/24/24 Folding Machine Setter Relationship Specialty Start Date End Date rFank Fuentes MD [address] [place] [address] PCP - General Family Medicine 04/06/17 Jackson Davenport MD [address] [facility] [address] [place] [address] Physician Cardiology 07/19/18 PodlogarSarah APRN.CAR REFINISHER [address] [place] [address] Cloud Systems Architect Family Medicine 02/19/24 Raquel Alvarez APRN.CAR REFINISHER [address] [place] [address] [facility] 06/05/24 07/30/24 Cesar Crouch, MARIVEL [address] [place], [place] [id number] Collection Card Clerk 06/09/24 Raquel Alvarez APRN.CAR REFINISHER [address] [place] [address] [facility] 08/24/24 Folding Machine Setter Relationship Specialty Start Date End Date Frank Fuentes MD [address] [place] [address] PCP - General Family Medicine 04/06/17 Jackson Davenport MD [address] [address] Physician Cardiology 07/19/18 Podlogar, WILMA Smith.CAR REFINISHER [address] [place] [address] [facility] 02/19/24 Cesar Crouch, MARIVEL [address] [place] [address] Collection Card Clerk 06/09/24 Folding Machine Setter Relationship Specialty Start Date End Date Frank Fuentes MD [address] [place] [address] PCP - General Family Medicine 04/06/17 Jackson Davenport MD [address] [place] [address] Physician Cardiology 07/19/18 Podlogar, KYRA SmithN.CAR REFINISHER [address] [place] [address] Cloud Systems Architect Family [facility] 02/19/24 Cesar Crouch, MARIVEL [address] [place], [place] [id number] Collection Card Clerk 06/09/24 Raquel Alvarez APRN.CAR REFINISHER [address] [place] [address] Cloud Systems Architect Family [facility] 08/24/24 Folding Machine Setter Relationship Specialty Start Date End Date Frank Fuentes MD [address] [place] [address] PCP - General Family Medicine 04/06/17 Jackson Davenport MD [address] [address] Physician Cardiology 07/19/18 PodlogarSarah APRN.CAR REFINISHER [address] [place] [address] [facility] 02/19/24 Cesar Crouch, MARIVEL [address] [place] [address] Collection Card Clerk 06/09/24 Raquel Alvarez AIRCRAFT HYDRAULIC EQUIPMENT MECHANIC.CAR REFINISHER [address] [place] [address] [facility] 08/24/24 Folding Machine Setter Relationship Specialty Start Date End Date Frank Fuentes MD [address] [place] [address] PCP - General Family Medicine 04/06/17 Jackson Davenport MD [address] [facility] [address] [place] [address] Physician Cardiology 07/19/18 PodlogarSarah APRN.CAR REFINISHER [address] [place] [address] Cloud Systems Architect Family Medicine 02/19/24 Cesar Crouch, MARIVEL [address] [place] [address] Collection Card Clerk 06/09/24 Raquel Alvarez APRN.CAR REFINISHER [address] [place] [address] Cloud Systems Architect Family Medicine 08/24/24 Folding Machine Setter Relationship Specialty Start Date End Date Frank Fuentes MD [address] [place] [address] PCP - General Family Medicine 04/06/17 Jackson Davenport MD [facility] [address] [address] Physician Cardiology 07/19/18 Podlogar, WILMA Smith.CAR REFINISHER [address] [place] [address] Cloud Systems Architect Family Medicine 02/19/24 Cesar Crouch, MARIVEL [address] [place] [address] Collection Card Clerk 06/09/24 Raquel Alvarez AIRCRAFT HYDRAULIC EQUIPMENT MECHANIC.CAR REFINISHER [address] [place] [address] Cloud Systems Architect Family Medicine 08/24/24 Folding Machine Setter Relationship Specialty Start Date End Date Frank Fuentes MD [address] [facility] [address] PCP - General Family Medicine 04/06/17 Jackson Davenport MD [address] [place] [address] Physician Cardiology 07/19/18 PodlogarSarah APRN.CAR REFINISHER [address] [place] [address] Cloud Systems Architect Family [facility] 02/19/24 Cesar Crouch, MARIVEL [address] [place], [place] [id number] Collection Card Clerk 06/09/24 Raquel Alvarez APRN.CAR REFINISHER [address] [place] [address] [facility] 08/24/24 Folding Machine Setter Relationship Specialty Start Date End Date Frank Fuentes MD [address] [place] [address] PCP - General Family Medicine 04/06/17 Jackson Davenport MD [address] [place] [address] Physician Cardiology 07/19/18 Podlogar, WILMA Smith.CAR REFINISHER [address] [place] [address] Cloud Systems Architect Family [facility] 02/19/24 Cesar Crouch, MARIVEL [address] [place], [place] [id number] Collection Card Clerk 06/09/24 Raquel Alvarez APRN.CAR REFINISHER [address] [place] [address] [facility] 08/24/24 Folding Machine Setter Relationship Specialty Start Date End Date Frank Fuentes MD [address] [place] [address] PCP - General Family Medicine 04/06/17 Jackson Davenport MD [address] [facility] [address] [place] [address] Physician Cardiology 07/19/18 Podlogar, Sarah, AIRCRAFT HYDRAULIC EQUIPMENT MECHANIC.CAR REFINISHER [address] [place] [address] Cloud Systems Architect Family Medicine 02/19/24 Cesar Crouch, MARIVLE [address] [place] [address] Collection Card Clerk 06/09/2409/13 Raquel Alvarez APRN.CAR REFINISHER [address] [place] [address] Cloud Systems Architect Family Medicine 08/24/24 Folding Machine Setter Relationship Specialty Start Date End Date Frank Fuentes MD [address] [place] [address] PCP - General Family Medicine 04/06/17 Jackson Davenport MD [address] [place] [address] Physician Cardiology 07/19/18 Podlogar, Sarah, AIRCRAFT HYDRAULIC EQUIPMENT MECHANIC.CAR REFINISHER [address] [place] [address] Cloud Systems Architect Family Medicine 02/19/24 Cesar Crouch, MARIVEL [address] [place] [address] Collection Card Clerk 06/09/2409/13 Raquel Alvarez APRN.CAR REFINISHER [address] [place], [place] [id number] [facility] 08/24/24 Team Status: Active Member Role/Relationship Status Dates Dr. Koko Fuentes MD Primary Care Provider Acti ve Team Status: Inactive Member Role/Relationship Status Dates Dr. Koko Fuentes MD Primary Care Provider Acti ve Start: August 21, 2024 End: August 21, 2024 Dr. Safia Montgomery , Attending Provider Active Start: August 21, 2024 End: August 21, 2024 Dr. Safia Montgomery DO Referring Provider Active Start: August 21, 2024 End: August 21, 2024 Team Status: Active Member Role/Relationship Status Dates Dr. Koko Fuentes MD Primary Care Provider Acti ve Start: October 11, 2024 Dr. Darrel Damico DO Emergency Provider Activ e Start: October 11, 2024 Dr. Kyle Culver DO Admit Provider Active Start: October 11, 2024 Dr. Kyle Culver DO Attending Provider Active Start: October 11, 2024 Folding Machine Setter Relationship Specialty Start Date End Date Frank Fuentes MD [address] [place], [place] [phone] PCP - General Family Medicine 04/06/17 Jackson Davenport MD [facility] MIKAYLA STARR [address] [id number] Physician Cardiology 07/19/18 PodlogarSarah APRN.CAR REFINISHER [address], [place] [phone] [facility] 02/19/24 Raquel Alvarez, AIRCRAFT HYDRAULIC EQUIPMENT MECHANIC.CAR REFINISHER [address] [place] [id number] Cloud Systems Architect Family Medicine 08/24/24 Goals (unrecognized section and content) Goals may be documented in a n alternate sectionGoals may be documented in an alternate sectionGoals may be documented in an alternate sectionGoals may be documented in an alternate sectionGoals may be documented in an alternate sectionGoals may be documented in an alternate sectionGoals may be documented in an alternate sectionGoals may be documented in an alternate section INFORMATION SOURCE (unrecogn ized section and content) DATE CREATED AUTHOR 02/23/2023 [facility] DATE CREATED AUTHOR AUTHOR'S ORGANIZ ATION 08/27/2024 [facility] DATE CREATED AUTHOR AUTHOR'S ORGANIZ ATION 10/11/2024 [facility] FOR RECORDS PERTAINING TO PATIENTS WHO ARE OR HAVE BEEN ENROLLED IN A CHEMICAL DEPENDENCY/SUBSTANCEABUSE PROGRAM, SOME INFORMATION MAY BE OMITTED. This clinical summary was aggregated from multiple sources. Caution should be exercised in using it in the provision of clinical care. This summary normalizes information from multiple sources, and as a consequence, information in this document may materially change the coding, format and clinical context of patient data. In addition, data may be omitted in some cases. CLINICAL DECISIONS SHOULD BE BASED ON THE PRIMARY CLINICAL RECORDS. [employer] [facility]. provides no warranty or guarantee of the accuracy or completeness of information in this document.
[2024-10-11] MEDS: Heparin Injection (Vial) 5,000 UNIT/ML VIAL 5000 UNIT SC (21:09)
[2024-10-11] MEDS: Multivitamin (Healthy Eyes) Capsule 1 CAP PO (21:09)
[2024-10-11] MEDS: Insulin Glargine-YFGN 100 UNIT/ML Pen 20 UNIT SC (21:17)
[2024-10-11] MEDS: FLUCONAZOLE 150 MG TABLET PO (21:24)
[2024-10-12 00:25] VITALS: BP 131/116; PULSE 83; RESP 16; TEMP 37.1; O2SAT 93
[2024-10-12] MEDS: 0.9% Saline Lock 10 ML Syringe IV ×2 (03:53→09:27)
[2024-10-12 06:28] VITALS: BP 118/49; PULSE 77; RESP 16; TEMP 36.4; O2SAT 98
[2024-10-12] MEDS: Heparin Injection (Vial) 5,000 UNIT/ML VIAL 5000 UNIT SC ×3 (06:31→20:51)
[2024-10-12 06:37] LABS: Hematocrit 24.8 % (37-47); Hemoglobin 8.6 g/dL (12.0-15.0); Mean Corp Hgb Conc 34.7 g/dL (32-36); Mean Corpuscular Volume 110.7 fL (81-99); Mean Platelet Vol. 10.1 fl (6.2-12.0); Platelet Count 394 K/mm3 (150-450); RBC Distribution Width CV 16.0 % (11.6-14.6); RBC Distribution Width SD 63.4 fl (35.1-43.9); Red Blood Count 2.24 M/mm3 (4.2-5.4); White Blood Count 9.4 K/mm3 (4.4-11.0)
[2024-10-12 06:57] LABS: Anion Gap 14 (5-15); BUN 43 mg/dL (4-19); BUN/Creat Ratio 30.5 RATIO (10-20); Calcium,Total 9.3 mg/dL (7.6-11.0); Carbon Dioxide 22.4 mmol/L (21.0-32.0); Chloride 102 mmol/L (98-108); Estimated Creatinine Clearance 23.16 ml/min (50-250); Glucose 125 mg/dL (70-99); Potassium 4.0 mmol/L (3.3-5.1)
[2024-10-12] MEDS: Insulin Glargine-YFGN 100 UNIT/ML Pen 20 UNIT SC ×2 (08:38→20:51)
[2024-10-12 08:44] VITALS: BP 123/50; PULSE 77; RESP 17; TEMP 36.9; O2SAT 95
[2024-10-12] MEDS: Potassium Chloride Oral Tablet 10 MEQ PO (08:48)
[2024-10-12] MEDS: Multivitamin (Healthy Eyes) Capsule 1 CAP PO ×2 (08:49→20:51)
[2024-10-12] MEDS: Cholecalciferol (VIT D3) 25 MCG TABLET (1,000 UNITS) PO (08:49)
[2024-10-12] MEDS: Aspirin E.C. 81 MG Tablet PO (08:49)
--- NOTE | 2024-10-12 09:06 | PCM.PN.HOSP ---
Subjective Subjective Doing well, no issues overnight. Blood sugars are better controlled and creatinine is improving Objective Data Objective Data Vital Signs: Vital Signs Temp Pulse Resp BP Pulse Ox O2 Del Method 98.5 F 77 17 123/50 H 95 Room Air 10/12/24 08:44 10/12/24 08:44 10/12/24 08:44 10/12/24 08:44 10/12/24 08:44 10/12/24 08:44 Oxygen Delivery Method Room Air Weight: 140 lb 10.479 oz Body Mass Index (BMI) 28.4 Intake & Output: Intake and Output for Last 24 Hours 10/11/24 10/12/24 10/13/24 03:59 03:59 03:59 Intake Total 2450 / 2450 350 / 350 Balance 2450 / 2450 350 / 350 Lab / Micro Data 10/12/24 05:15 10/12/24 05:15 Labs: Laboratory Results - last 24 hr 10/11/24 13:15: Hemoglobin A1c 13.2 H 10/11/24 13:50: WBC 10.6, RBC 2.48 L, Hgb 9.4 L, Hct 27.3 L, MCV 110.1 H, MCH 37.9 H, MCHC 34.4, RDW Std Deviation 63.8 H, RDW Coeff of Maria Del Rosario 16.0 H, Plt Count 395, MPV 9.9, Immature Gran % (Auto) 0.600, Neut % (Auto) 73.6 H, Lymph % (Auto) 15.0 L, [place] % (Auto) 7.9, Eos % (Auto) 2.6, Baso % (Auto) 0.3, Absolute Neuts (auto) 7.8 H, Absolute Lymphs (auto) 1.58, Nucleated RBC % 1.5, Sodium 128 L, Potassium 4.4, Chloride 90 L, Carbon Dioxide 22.6, Anion Gap 16 H, BUN 55 H, Creatinine 1.81 H, Est GFR (MDRD) Non-Af 27 L, BUN/Creatinine Ratio 30.5 H, Glucose 549 H*, Calcium 9.7, Total Bilirubin 0.64, AST 20, ALT 14, Alkaline Phosphatase 69, Total Protein 7.2, Albumin 4.2, Globulin 3.1, Albumin/Globulin Ratio 1.4, b-Hydroxybutyric mmol/L 0.8 H 10/11/24 14:14: Urine Color Yellow, Urine Clarity Turbid, Urine pH 6.0, Ur Specific [place] 1.015, Urine Protein 30 H, Urine Glucose (UA) 1000 H, Urine Ketones Negative, Urine Occult Blood 50 H, Urine Nitrite Positive H, Urine Bilirubin Negative, Urine Urobilinogen Normal, Ur Leukocyte Esterase 500 H, Urine RBC 5-10 SEEN, Urine WBC >100 SEEN, Ur Squamous Epith Cells 0 SEEN, Urine Bacteria 1+, Urine Mucus 0 SEEN, Urine Yeast 3+ 10/11/24 15:57: POC Glucose 408 H 10/11/24 16:07: Sodium 134, Potassium 3.4, Chloride 99, Carbon Dioxide 21.2, Anion Gap 14, BUN 51 H, Creatinine 1.63 H, Est GFR (MDRD) Non-Af 30 L, BUN/Creatinine Ratio 31.5 H, Glucose 336 H, Calcium 8.4, Iron 69, TIBC 224 L, Iron Saturation 30.8, Unsaturated IBC 155 L, Ferritin 493 H, Vitamin B12 > 4000 H 10/11/24 17:45: POC Glucose 262 H 10/11/24 21:15: POC Glucose 195 H 10/12/24 05:15: WBC 9.4, RBC 2.24 L, Hgb 8.6 L, Hct 24.8 L, MCV 110.7 H, MCH 38.4 H, MCHC 34.7, RDW Std Deviation 63.4 H, RDW Coeff of Maria Del Rosario 16.0 H, Plt Count 394, MPV 10.1, Sodium 138, Potassium 4.0, Chloride 102, Carbon Dioxide 22.4, Anion Gap 14, BUN 43 H, Creatinine 1.40 H, Estim Creat Clear Calc 23.16 L, Est GFR (MDRD) Non-Af 36 L, BUN/Creatinine Ratio 30.5 H, Glucose 125 H, Calcium 9.3 ABG Data ABG results: ABG 10/11/24 13:58 Specimen Type DESTINEE Sample Site Not entered VBG pH 7.44 H VBG pO2 60 H VBG HCO3 26 VBG Total CO2 27 VBG O2 Sat (Calc) 92 H VBG Base Excess 2 POC Mix VBG pCO2 Pt Tmp 38.1 L O2 Delivery Device Not entered Radiography Diagnostic Testing: Radiology Impression Chest X-Ray 10/11/24 13:34 IMPRESSION: There is mild cardiomegaly without overt CHF. There is a 1.4 cm density overlying the right lower hilum. Chest CT correlation is recommended. Reading [facility] 10/11/24 16:30 IMPRESSION: No pulmonary mass lesion or thoracic lymphadenopathy. Mild cardiomegaly with interstitial pulmonary edema. No pleural effusion. Reading Location: [facility] Renal Ultrasound 10/11/24 17:14 IMPRESSION: Mildly atrophic echogenic kidneys, more so on the left likely reflecting chronic medical renal disease. No shadowing renal calculi or hydronephrosis on either side. No specific findings to indicate pyelonephritis, however this is primarily a clinical diagnosis and ultrasound has limited sensitivity/utility for this diagnosis. Correlate with laboratory/urinalysis findings. Mild thickening of the urinary bladder wall may reflect cystitis. Reading Location: [facility] Physical Exam Narrative General: Alert, Oriented x3, Cooperative, No apparent distress HEENT: Atraumatic, PERRLA, EOMI, Normocephalic Oral: Moist Mucosa Neck: Supple, No JVD Lungs: Diminished, Normal air movement, No rhonchi, No wheeze, No rales Cardiovascular: Regular rate, Regular Rhythm, Normal S1, Normal S2, No murmurs Abdomen: Soft, Non Tender, Non-Distended, No Hepato-splenomegaly Extremities: No edema, Capillary Refill Less than 3 Seconds Skin: No rashes, No breakdown Musculoskeletal: No Tenderness to Palpation of Joints or Extremities Neurological: No focal neurological deficits, moves all extremities Psych/Mental Status: Normal Affect, Appropriate Assessment & Plan Assessment/Plan (1) Hyperglycemia due to type 2 diabetes mellitus: (2) UTI (urinary tract infection): (3) Weakness: PLAN: Plan 1. Uncontrolled type 2 diabetes with hyperglycemia and CKD 3 in the setting of a UTI with generalized weakness ? Urine cultures pending ? Continue with Rocephin ? She is on Jardiance may need to discontinue prior to discharge ? Accu-Cheks ACHS ? Sliding scale insulin ? Will monitor and make adjustments as necessary ? PT/OT ? Continue IV fluids, renal functions improving 2. Abnormal chest x-ray ? Chest x-ray showed a 1.4 cm density overlying the right lower hilum. However CT of the chest did not show any lesions. 3. CAD status post stent/essential HTN/HLD ? Continue with her home blood pressure medications, her Coreg was dose reduced to 6.25 mg p.o. twice daily ? Continue with her statin and aspirin ? Will monitor and make adjustments as necessary 3. Hypothyroidism ? Stable ? Continue with Synthroid 4. GERD ? Stable ? Continue with PPI 5. Anxiety/depression ? Stable ? Continue with citalopram DVT: Heparin Charges/Coding Visit Charges Inpatient E&M: 32141 Subs Hosp L2
[2024-10-12 15:23] VITALS: BP 107/45; PULSE 75; RESP 17; TEMP 36.7; O2SAT 95
[2024-10-12 17:57] VITALS: BP 107/48; PULSE 81
[2024-10-12 21:20] VITALS: BP 102/42; PULSE 78; RESP 18; TEMP 36.4; O2SAT 97
[2024-10-13 03:20] VITALS: BP 110/48; PULSE 73; RESP 18; TEMP 36.3; O2SAT 93
[2024-10-13 06:00] LABS: Hematocrit 25.0 % (37-47); Hemoglobin 8.6 g/dL (12.0-15.0); Immature Granulocytes Count 0.140 X10^3/uL (0.0-0.0); Mean Corp Hgb Conc 34.4 g/dL (32-36); Mean Corpuscular Volume 111.1 fL (81-99); Mean Platelet Vol. 9.6 fl (6.2-12.0); NRBC Flagged by Analyzer 1.7 % (0-5); POSITIVE MORPHOLOGY YES; Platelet Count 379 K/mm3 (150-450); RBC Distribution Width CV 16.5 % (11.6-14.6); RBC Distribution Width SD 67.6 fl (35.1-43.9); Red Blood Count 2.25 M/mm3 (4.2-5.4); White Blood Count 10.8 K/mm3 (4.4-11.0)
[2024-10-13 06:02] LABS: Differential Indicated SCAN CRITERIA MET
[2024-10-13] MEDS: Heparin Injection (Vial) 5,000 UNIT/ML VIAL 5000 UNIT SC (06:05)
[2024-10-13 06:32] LABS: Anisocytosis 2+; Differential Comment SCANNED
[2024-10-13 06:35] VITALS: O2SAT 94
[2024-10-13 06:45] LABS: Anion Gap 12 (5-15); BUN 51 mg/dL (4-19); BUN/Creat Ratio 30.6 RATIO (10-20); Calcium,Total 9.2 mg/dL (7.6-11.0); Carbon Dioxide 21.8 mmol/L (21.0-32.0); Chloride 102 mmol/L (98-108); Estimated Creatinine Clearance 19.30 ml/min (50-250); Glucose 102 mg/dL (70-99); Potassium 4.4 mmol/L (3.3-5.1)
[2024-10-13 09:20] VITALS: BP 124/47; PULSE 74; RESP 18; TEMP 36.6; O2SAT 97
[2024-10-13] MEDS: Cholecalciferol (VIT D3) 25 MCG TABLET (1,000 UNITS) PO (09:36)
[2024-10-13] MEDS: Potassium Chloride Oral Tablet 10 MEQ PO (09:37)
[2024-10-13] MEDS: Multivitamin (Healthy Eyes) Capsule 1 CAP PO (09:37)
[2024-10-13] MEDS: Insulin Glargine-YFGN 100 UNIT/ML Pen 20 UNIT SC (09:37)
[2024-10-13] MEDS: Aspirin E.C. 81 MG Tablet PO (09:37)
--- NOTE | 2024-10-13 11:51 | PCM.DC.SUM ---
Providers Date of Admission: 10/11/24 Date of Discharge: 10/13/24 Primary Care Physician: Dr. Koko Fuentes MD Reason For Visit: T2DM W/ PERSISTANT HYPERGLYCEMIA, UTI Diagnosis Discharge Diagnosis (1) Hyperglycemia due to type 2 diabetes mellitus: Status: Acute Code(s): E11.65 - Type 2 diabetes mellitus with hyperglycemia (2) UTI (urinary tract infection): Status: Acute Code(s): N39.0 - Urinary tract infection, site not specified (3) Weakness: Status: Acute Code(s): R53.1 - Weakness Plan # E. coli UTI # Uncontrolled type 2 diabetes mellitus # Hypothyroidism # Coronary artery disease # CKD unclear subtype # History of depression Medications at Discharge Home Medications cholecalciferol (vitamin D3) 25 mcg (1,000 unit) tablet 1,000 unit PO DAILY 01/02/15 cranberry 500 mg capsule 500 mg PO DAILY 01/02/15 levothyroxine 75 mcg tablet 75 mcg PO DAILY 01/02/15 pravastatin 80 mg tablet 80 mg PO DAILY 01/02/15 nitroglycerin 0.4 mg sublingual tablet 0.4 mg sublingual Q5-15M PRN chest pain #25 tabs 12/07/18 citalopram 20 mg tablet 20 mg PO DAILY 08/22/19 folic acid 1 mg tablet 1 mg PO BID 08/22/19 latanoprost 0.005 % eye drops (Xalatan) 1 drp ophthalmic (eye) .daily qhs eye 04/04/21 pantoprazole 40 mg tablet,delayed release 40 mg PO DAILY 04/04/21 cyanocobalamin (vitamin B-12) 1,000 mcg capsule 1,000 mcg PO DAILY 05/21/22 isosorbide mononitrate 30 mg tablet,extended release 24 hr 60 mg PO DAILY 09/21/22 vitamins A,C,I-wrya-cjlvhi 4,296 mcg-226 mg-90 mg capsule (PreserVision AREDS) 1 cap PO BID 09/21/22 furosemide 40 mg tablet 40 mg PO DAILY 30 days #30 tabs 01/31/23 Held on 10/13/24. Instructions: Resume on 10/16/24. potassium chloride 10 mEq capsule,extended release 10 meq PO DAILY 30 days #30 caps 01/31/23 acetaminophen 500 mg capsule 1,000 mg PO Q8H PRN PRN fever or pain 02/19/23 aspirin 81 mg tablet,delayed release 81 mg PO DAILY@0800 #30 tabs 09/14/23 semaglutide 0.25 mg or 0.5 mg (2 mg/3 mL) subcutaneous pen injector (Ozempic) 0.25 mg subcut QWEEK 04/27/24 amoxicillin 875 mg-potassium clavulanate 125 mg tablet 1 tab PO BID 7 days #14 tabs 10/13/24 carvedilol 25 mg tablet 12.5 mg (1/2 x 25 mg) PO BID #60 tabs 10/13/24 insulin glargine 100 unit/mL (3 mL) subcutaneous pen (Lantus Solostar U-100 Insulin) 38 unit (0.38 mL) subcut QHS dm #100 mL 10/13/24 Hospital Course Summary of Care Provided Minutes Spent on Discharge: 33 Hospital Course: 89-year-old female history of uncontrolled type 2 diabetes, hypertension, hypothyroidism, CKD, depression presented to [facility] ED 10/11/2024 with worsening hyperglycemia, fatigue and weakness and UTI symptoms. Her PCP had been adjusting her medications for her diabetes due to a jump up and her A1c but given her worsening symptoms and continued escalation of glucose she presented to the ED. BMP in the ED showed a glucose of 549, no evidence of DKA. UA also suspicious for UTI. Patient admitted and started empirically on Rocephin while awaiting culture and sensitivity data. Patient's glucose is significantly improved with treating underlying infection and patient grew pansensitive E. coli. Suspect that patient will need further adjustments on an outpatient basis however this a.m. glucose 111 and yesterday's fasting glucose 149 with variable readings throughout the day. Patient overall feeling better with no new or acute complaints and is comfortable discharge home on antibiotics. Given her UTI Jardiance has been stopped, advised to follow-up closely with her primary care physician. Also of note patient's blood pressure had been on the lower side here so her amlodipine was held and her Coreg was decreased with blood pressure systolics low 100s up to 130s which is fairly appropriate for age as hypotension could lead to falls or other adverse effects. Verbally gave patient discharge instructions and also wrote out instructions to be provided for patient as follows: DISCHARGE INSTRUCTIONS PLEASE READ *Please take this with you to your next doctors appointment* - Jardiance to be discontinued as this may be contributing to urinary tract infections -Would recommend taking 20 units of your long-acting insulin tonight and the following day resume your 38 units at bedtime - Resume your home long-acting insulin dosing, suspect your blood glucose was further elevated at home due to your underlying urinary tract infection however will be important for you to follow-up closely with your primary care physician - You will be discharged on Augmentin 875 mg twice daily for another 7 days with your first dose on 10/14 - Your blood pressure was not significantly elevated here and at times was lower than your blood pressure goal would be so amlodipine has been held and is recommended to go down to 12.5 mg twice daily dose of Coreg and monitor blood pressure at home, if there are any concerns or questions about this - Would recommend resuming your home Lasix dosing on Monday 10/16 if your eating and drinking well -Please call your primary care provider's office upon discharge to schedule a hospital follow up within 1 week. -For any concerning signs or symptoms please call 911 or proceed to the nearest emergency department *Of note initial instructions contained a typo regarding the Jardiance but this was communicated correctly the patient Physical Exam Narrative General: Alert, oriented, no apparent distress HEENT: Atraumatic, normocephalic Eyes: Anicteric, normal conjunctiva, extraocular movements grossly intact Neck: Supple Respiratory: Clear to auscultation bilaterally, normal respiratory effort Cardiovascular: Regular rate GI: Soft, nontender, nondistended Extremities: No edema Musculoskeletal: Moving all extremities Neuro: No overt focal neurological deficits Skin: No rashes appreciated Psych: Cooperative Weight / BMI Weight Weight: 63.8 kg Body Mass Index (BMI) 28.4 ABG / Lab / Microbiology Data 10/13/24 05:35 10/13/24 05:35 Laboratory: Laboratory Results - last 24 hr 10/11/24 19:12: RBC Folate Hemolysate > 620.0, RBC Folate > 2081, Hematocrit 29.8 L 10/12/24 20:29: POC Glucose 212 H 10/13/24 05:35: WBC 10.8, RBC 2.25 L, Hgb 8.6 L, Hct 25.0 L, MCV 111.1 H, MCH 38.2 H, MCHC 34.4, RDW Std Deviation 67.6 H, RDW Coeff of Maria Del Rosario 16.5 H, Plt Count 379, MPV 9.6, Immature Gran % (Auto) 1.300 H, Neut % (Auto) 61.2, Lymph % (Auto) 21.9, [place] % (Auto) 10.8 H, Eos % (Auto) 4.2, Baso % (Auto) 0.6, Absolute Neuts (auto) 6.7, Absolute Lymphs (auto) 2.37, Nucleated RBC % 1.7, Differential Comment SCANNED, Anisocytosis 2+, Sodium 136, Potassium 4.4, Chloride 102, Carbon Dioxide 21.8, Anion Gap 12, BUN 51 H, Creatinine 1.68 H, Estim Creat Clear Calc 19.30 L, Est GFR (MDRD) Non-Af 29 L, BUN/Creatinine Ratio 30.6 H, Glucose 102 H, Calcium 9.2 10/13/24 08:10: POC Glucose 111 H 10/13/24 11:41: POC Glucose 244 H Microbiology: Microbiology 10/11/24 14:14 Urine, Clean Catch Urine Culture - Final Escherichia coli D/C Instructions DC O2, CPAP, BIPAP Needs Home O2 Discharge instructions: No Meaningful Use Info Meaningful Use Meaningful Use Diagnoses (Choose all that apply): None applicable Discharge Plan Admission Admit Date/Time: 10/11/24 16:11 Primary Reason for Your Visit: Urinary tract infection Attending Provider: Micaela Miramontes Primary Care Provider: Koko Fuentes Consulting Providers: Kyle Culver; Itz Gutierrez Instructions Patient Instructions: Urinary Tract Infections in Women Additional Instructions / Restrictions: DISCHARGE INSTRUCTIONS PLEASE READ *Please take this with you to your next doctors appointment* -Jardiance to be discontinued as this may be contributing to urinary tract infections -Would recommend taking 20 units of your long-acting insulin tonight and the following day resume your 38 units at bedtime - Resume your home long-acting insulin dosing, suspect your blood glucose was further elevated at home due to your underlying urinary tract infection however will be important for you to follow-up closely with your primary care physician - You will be discharged on Augmentin 875 mg twice daily for another 7 days with your first dose on 10/14 - Your blood pressure was not significantly elevated here and at times was lower than your blood pressure goal would be so amlodipine has been held and is recommended to go down to 12.5 mg twice daily dose of Coreg and monitor blood pressure at home, if there are any concerns or questions about this - Would recommend resuming your home Lasix dosing on Monday 10/16 if your eating and drinking well -Please call your primary care provider's office upon discharge to schedule a hospital follow up within 1 week. -For any concerning signs or symptoms please call 911 or proceed to the nearest emergency department Discharge Orders/Prescriptions Prescriptions: New amoxicillin-pot clavulanate 875-125 mg tablet 1 tab PO BID 7 Days Qty: 14 0RF Rx Instructions: First dose 10/14 Continued nitroglycerin 0.4 mg tablet, sublingual 0.4 mg SUBLINGUAL Q5-15M PRN (Reason: chest pain) Qty: 25 3RF pantoprazole 40 mg tablet,delayed release (DR/EC) 40 mg PO DAILY latanoprost [Xalatan] 0.005 % drops 1 drp ophthalmic (eye) .daily qhs isosorbide mononitrate 30 mg tablet extended release 24 hr 60 mg PO DAILY PreserVision AREDS 4,296 mcg-226 mg-90 mg capsule 1 cap PO BID acetaminophen 500 mg capsule 1,000 mg PO Q8H PRN PRN (Reason: fever or pain) aspirin 81 mg tablet,delayed release (DR/EC) 81 mg PO DAILY@0800 Qty: 30 0RF Ozempic 0.25 mg or 0.5 mg (2 mg/3 mL) pen injector 0.25 mg subcut QWEEK Rx Instructions: for 4 weeks levothyroxine 75 MCG tablet 75 mcg PO DAILY pravastatin 80 MG tablet 80 mg PO DAILY cranberry 500 MG capsule 500 mg PO DAILY cholecalciferol (vitamin D3) 1,000 UNIT tablet 1,000 unit PO DAILY citalopram 20 mg tablet 20 mg PO DAILY folic acid 1 mg tablet 1 mg PO BID potassium chloride 10 mEq capsule, extended release 10 meq PO DAILY 30 Days Qty: 30 0RF insulin glargine [Lantus Solostar U-100 Insulin] 100 unit/mL (3 mL) insulin pen 38 unit subcut QHS Qty: 100 0RF cyanocobalamin (vitamin B-12) 1,000 mcg capsule 1,000 mcg PO DAILY Changed carvedilol 25 MG tablet 12.5 mg PO BID Qty: 60 0RF Held furosemide 40 mg Tablet 40 mg PO DAILY 30 Days Qty: 30 0RF Hold Instructions: Resume on 10/16/24. Discontinued amlodipine [Norvasc] 5 mg tablet 2.5 mg PO DAILY Jardiance 10 mg tablet 10 mg PO DAILY Referrals / Follow Up: Koko Fuentes MD [Primary Care Provider] - 10/18/24 11:20 am Disposition Disposition (needs filled in before D/C Order can be placed): Home, Self Care Charges/Coding Visit Charges Inpatient E&M: 08770 Disch Hosp >30min
--- NOTE | 2024-10-13 13:15 | CASEMGMT ---
Patient has order for discharge. RN CM in to discuss needs at discharge. Patient denies needs or help at discharge. Patient had no further questions or concerns.
[2024-10-13 14:08] LABS: Folate, Hemolysate Test > 620.0 ng/mL (Not Estab.); Folate, RBC (Hct) Test 29.8 % (34.0-46.6); Folates, RBC Test > 2081 ng/mL (>498)
== END 2024-10-13 13:51 | disposition home or self-care (01) | DRG 638 ==
LOC: ED 13:44 → PCU 16:26
PROVIDERS: Family Medicine; Admitting Provider Hospitalist; Emergency Provider Surgery; PCP Family Medicine; Visit Provider Internal Medicine
DX: E11.65 Type 2 diabetes mellitus with hyperglycemia (principal); N39.0 Urinary tract infection, site not specified; E11.22 Type 2 diabetes mellitus with diabetic chronic kidney disease; D53.9 Nutritional anemia, unspecified; E03.9 Hypothyroidism, unspecified; B96.20 Unspecified Escherichia coli [E. coli] as the cause of diseases classified elsewhere; Z66 Do not resuscitate; N18.30 Chronic kidney disease, stage 3 unspecified; I12.9 Hypertensive chronic kidney disease with stage 1 through stage 4 chronic kidney disease, or unspecified chronic kidney disease; F32.A Depression, unspecified; E78.5 Hyperlipidemia, unspecified; I25.10 Atherosclerotic heart disease of native coronary artery without angina pectoris; K21.9 Gastro-esophageal reflux disease without esophagitis; Z79.4 Long term (current) use of insulin; F41.9 Anxiety disorder, unspecified; Z79.82 Long term (current) use of aspirin; Z79.899 Other long term (current) drug therapy; Z83.3 Family history of diabetes mellitus; Z95.5 Presence of coronary angioplasty implant and graft
CPT/HCPCS: 36415; 71045; 71250; 76770; 80048; 80053; 81001; 82010; 82607; 82728; 82747; 82803; 82962; 83036; 83540; 83550; 85014; 85025; 85027; 87077; 87086; 87088; 87186; 94668; 97802; 99285; A4216

== ENCOUNTER → 2024-11-16 | Outpatient (CLI) | payer MEDICARE, OTHER, SELFPAY ==
[2018-09-23 13:08] VITALS: BMI 34.5
[2024-11-16 10:43] LABS: PTHIN 82 pg/mL (11-61)
[2024-11-16 10:45] LABS: Albumin, Serum 3.8 g/dL (3.4-4.8); Anion Gap 14 (5-15); BUN 47 mg/dL (4-19); BUN/Creat Ratio 26.9 RATIO (10-20); Calcium,Total 9.4 mg/dL (7.6-11.0); Carbon Dioxide 23.7 mmol/L (21.0-32.0); Chloride 93 mmol/L (98-108); Glucose 189 mg/dL (70-99); Potassium 4.1 mmol/L (3.3-5.1)
[2024-11-16 11:32] LABS: Creatinine, Urine (random) 65.00 mg/dL (28.00-217.00); Protein, Urine (Random) 17.4 mg/dL (0.0-12.0); Protein:Creat Ratio 268 mg/g CRE (0-200)
== END | disposition home or self-care (01) ==
PROVIDERS: PCP Family Medicine; Referring Provider Internal Medicine Nephrology; Visit Provider Internal Medicine Nephrology
DX: E11.22 Type 2 diabetes mellitus with diabetic chronic kidney disease (principal); N18.32 Chronic kidney disease, stage 3b; N25.81 Secondary hyperparathyroidism of renal origin; D50.9 Iron deficiency anemia, unspecified
CPT/HCPCS: 36415; 80069; 82570; 83970; 84156